=== PATIENT | male | born 1935 | race African-American/Black ===

== ENCOUNTER 2019-10-10 21:01 | Inpatient (IN) | payer MEDICARE ==
--- NOTE | 2019-10-10 21:49 | Emergency Department Report ---
HPI - General Chief Complaint: Medical Clearance Time Seen by Provider: 10/10/19 21:28 - HPI HPI: 84-year-old male presents to the emergency department via EMS from home with complaint of some generalized weakness, nausea and vomiting, decreased oral intake, subjective fever. The patient has never been here previously. Patient lives with his and given his current clinical status she appears unable to care for him. He has a past medical history of hypertension. He presents in atrial fibrillation with RVR. ED Past Medical Hx - Past Medical History Previous Medical History?: Yes Hx Hypertension: Yes Additional medical history: afib - Social History Smoking Status: Unknown if ever smoked - Medications Home Medications: Home Medications Medication Instructions Recorded Confirmed Last Taken Type Metoprolol 10/10/19 Unknown History ED Review of Systems ROS: Stated complaint: FAILURE TO THRIVE Other details as noted in HPI Comment: Unobtainable due to pts medical conditions Physical Exam - Physical Exam Vital Signs: Vital Signs 10/10/19 10/10/19 21:02 21:31 Temperature 97.6 F Pulse Rate 140 H Respiratory 23 Rate Physical Exam: GENERAL: The patient is well-developed well-nourished. HENT: Normocephalic. Atraumatic. Patient has moist mucous membranes. EYES: Extraocular motions are intact. Pupils equal reactive to light bilateral ly. NECK: Supple. Trachea is midline. CHEST/LUNGS: Clear to auscultation. There is no respiratory distress noted. HEART/CARDIOVASCULAR: Regular. There is no tachycardia. There is no murmur. ABDOMEN: Abdomen is soft, nontender. Patient has normal bowel sounds. There is no abdominal distention. SKIN: Skin is warm and dry. NEURO: The patient is awake but appears confused. He is slightly agitated and not cooperative. MUSCULOSKELETAL: There is no tenderness or deformity. There is no evidence of acute injury. ED Course Vital Signs 10/10/19 10/10/19 21:02 21:31 Temperature 97.6 F Pulse Rate 140 H Respiratory 23 Rate ED Medical Decision Making - Lab Data Result diagrams: 10/10/19 21:40 10/10/19 21:40 - EKG Data -: EKG Interpreted by Me - EKG Data Interpretation: other (Atrial fibrillation with a rate of 132 bpm, left axis deviation, PVCs, LVH) - Radiology Data Radiology results: report reviewed, image reviewed interpreted by me: Chest x-ray does not show any acute process. There are no pleural effusions, obvious pneumonia and there is no pneumothorax. CT head/brain wo con INDICATION: Altered Mental Status. TECHNIQUE: All CT scans at this location are performed using the following dose modulation technique: Automated exposure control. CONTRAST: None. COMPARISON: None available. F INDINGS: The ventricular system is appropriate in size and configuration without midline shift. Negative for mass, hemorrhage or acute stroke. Prominent white matter change is greater on the left extending into the temporal lobe. 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 Imaged portions the paranasal sinuses are clear. IMPRESSION: 1. Chronic changes of atrophy and small vessel ischemia. 2. More focal changes the white matter of the left frontal region are age indeterminate. - Medical Decision Making This patient was brought in for an evaluation for generalized weakness, decreased oral intake, subjective fever and nausea with vomiting. However it appears that there must be of some level of altered mental status as part of the reason he was sent in is because his is no longer able to care for him in his current clinical state. When he got here the patient is slightly agitated and/or not cooperative but is awake. A CT scan of the head without contrast was completed that does not show any acute bleed or any large territorial infarct. The patient presented with a heart rate going up into the 130s that appeared ir regular. EKG confirms atrial fibrillation with RVR. As far as we know the patient's only history was hypertension so this would be new onset. The patient was given a dose of Cardizem for rate control and a dose of Ativan for his agitation. He did not convert back to a sinus rhythm but he did become rate controlled. Chest x-ray does not show any pneumonia, pleural effusion, pneumothorax, or any other acute process. Patient's labs also show some mild renal insufficiency that may be secondary to dehydration. However he has not received much IV fluid resuscitation as he does present with extremely elevated blood pressure. He was initially given that Cardizem, and then was given hydralazine and labetalol and it has come down to a more reasonable level. Patient was started on heparin for the new onset atrial fibrillation. He will be admitted to the hospital for further evaluation and treatment and was accepted for admission by the hospitalist, Dr. Grullon. Critical Care Time: Yes Critical care time in (mins) excluding proc time.: 40 Critical care attestation.: If time is entered above; I have spent that time in minutes in the direct care of this critically ill patient, excluding procedure time. Due to the immediate potential for life-threatening deterioration due to underlying cardiac, renal and metabolic conditions, I spent 40 minutes of critical care time with the patient. Critical Care Time: 40 minutes ED Disposition Clinical Impression: Atrial fibrillation with RVR, PRIMO (acute kidney injury), Hypertensive urgency Altered mental status Qualifiers: Altered mental status type: unspecified Qualified Code(s): R41.82 - Altered mental status, unspecified Disposition: DC-09 OP ADMIT IP TO THIS HOSP Is pt being admited?: Yes Condition: Serious Time of Disposition: 02:01
[2019-10-10] MEDS ORDERED: dilTIAZem 25 MG/5 ML INJ IV ONE (22:15)
[2019-10-10] MEDS ORDERED: SODIUM CHLORIDE 0.9% 1000 ML 1,000 ML IV ONE (22:16)
[2019-10-10 22:20] LABS: Basophils # (Auto) 0.1 K/mm3 (0.0-0.1); Basophils % (Auto) 0.3 % (0.0-1.8); Eosinophils # (Auto) 0.1 K/mm3 (0.0-0.4); Eosinophils % (Auto) 0.3 % (0.0-4.3); Hematocrit 47.7 % (35.5-45.6); Hemoglobin 15.4 gm/dl (11.8-15.2); Lymphocytes % (Auto) 5.3 % (13.4-35.0); Mean Corpuscular HGB Conc 32 % (32-34); Mean Corpuscular Volume 101 fl (84-94); Monocytes # (Auto) 1.3 K/mm3 (0.0-0.8); Monocytes % (Auto) 7.2 % (0.0-7.3); Platelet Count 132 K/mm3 (140-440); Red Blood Count 4.73 M/mm3 (3.65-5.03); Red Cell Distribution Width 14.3 % (13.2-15.2)
[2019-10-10 22:30] LABS: INR 1.14 (0.87-1.13)
[2019-10-10 22:31] LABS: Partial Thromboplastin Time 33.2 Sec. (24.2-36.6)
[2019-10-10 22:45] LABS: Albumin 4.1 g/dL (3.9-5); Calcium 9.6 mg/dL (8.4-10.2)
[2019-10-10] MEDS ORDERED: LORazepam 2 MG/ML VIAL IV ONE (22:50)
[2019-10-10 23:40] LABS: Bacteria,Urine 1+ /HPF (Negative); Bilirubin,Urine NEG (Negative); Blood,Urine SM (Negative); Color,Urine Yellow (Yellow); Hyaline Casts,Urine 6 /LPF; Mucus,Urine FEW /HPF; Urobilinogen,Urine < 2.0 mg/dL (<2.0)
[2019-10-10] MEDS ORDERED: hydrALAZINE 20 MG/1 ML INJ IV ONE (23:40)
[2019-10-10 23:41] LABS: Protein,Urine 300 mg/dL mg/dL (Negative)
--- NOTE | 2019-10-10 23:54 | XRay Report ---
CHEST 1 VIEW INDICATION: Altered mental status. COMPARISON: None. FINDINGS: Support devices: None. Heart: Moderate cardiomegaly. Lungs/Pleura: No acute air space or interstitial disease. Additional findings: None. IMPRESSION: Moderate cardiomegaly. Signer Name: Servando De Jesus MD Signed: 10/10/2019 11:49 PM Workstation Name: [id number]
[2019-10-11] MEDS ORDERED: HEPARIN 10,000 UNITS/10 ML VIAL IV ONE (01:04)
--- NOTE | 2019-10-11 01:04 | Cat Scan Report ---
CT head/brain wo con INDICATION: Altered Mental Status. TECHNIQUE: All CT scans at this location are performed using the following dose modulation technique: Automated exposure control. CONTRAST: None. COMPARISON: None available. FINDINGS: The ventricular system is appropriate in size and configuration without midline shift. Nega tive for mass, hemorrhage or acute stroke. Prominent white matter change is greater on the left exten ding into the temporal lobe. 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 Imaged portions the paranasal sinuses are clear. IMPRESSION: 1. Chronic changes of atrophy and small vessel ischemia. 2. More focal changes the white matter of the left frontal region are age indeterminate. Signer Name: Servando De Jesus MD Signed: 10/11/2019 12:59 AM Workstation Name: [id number]
[2019-10-11 01:58] LABS: INR 1.18 (0.87-1.13)
[2019-10-11 01:59] LABS: Partial Thromboplastin Time 32.9 Sec. (24.2-36.6)
[2019-10-11] MEDS ORDERED: HEPARIN/ 0.45% NACL DRIP 25,000 UNIT/500 ML BAG IV SCH (02:00)
[2019-10-11] MEDS ORDERED: ACETAMINOPHEN 325 MG TAB PO PRN (02:03)
[2019-10-11] MEDS ORDERED: ONDANSETRON 4 MG/2 ML INJ IV PRN (02:03)
--- NOTE | 2019-10-11 02:08 | History and Physical Report ---
History of Present Illness History of present illness: History was provided via the chart. This is a 84-year-old man with a history of hypertension, A. fib was sent to the emergency room for evaluation. He has been having nausea vomiting, decreased oral intake and reports of fever. The patient has been afebrile here. The has been unable to care for the patient. In the emergency room he was found to be in A. fib with RVR, converted with Cardizem. His blood pressure was elevated but has been responding to antihypertensives. Patient will be admitted for A. fib with RVR, SIRS, failure to thrive. Patient was given IV Ativan in the ER, he is now sedated, history and review of system is unobtainable PAST MEDICAL HISTORY: hypertension, A. fib PAST SURGICAL HISTORY: Unknown SOCIAL HISTORY: Unknown FAMILY HISTORY: Unknown Medications and Allergies Allergies Allergy/AdvReac Type Severity Reaction Status Date / Time No Known Allergies Allergy Unverified 10/10/19 21:31 Home Medications Medication Instructions Recorded Confirmed Last Taken Type Metoprolol 10/10/19 Unknown History Active Meds: Active Medications Acetaminophen (Tylenol) 650 mg PO Q4H PRN PRN Reason: Pain MILD(1-3)/Fever >100.5/ANNE Sodium Chloride (Nacl 0.9% 1000 Ml) 1,000 mls @ 125 mls/hr IV ONCE ONE Stop: 10/11/19 06:15 Last Admin: 10/10/19 22:43 Dose: 125 mls/hr Documented by: Ondansetron HCl (Zofran) 4 mg IV Q8H PRN PRN Reason: Nausea And Vomiting Sodium Chloride (Sodium Chloride Flush Syringe 10 Ml) 10 ml IV BID NETO Sodium Chloride (Sodium Chloride Flush Syringe 10 Ml) 10 ml IV PRN PRN PRN Reason: LINE FLUSH Exam - Physical Exam Narrative exam: Gen. appearance: Patient lying in bed, no apparent distress HEENT: Normocephalic, atraumatic, pupils equally round and reactive to light, extraocular movement intact, and no sclericterus,. No JVD or thyromegaly or nodule,neck supple, no carotid bruit ,mucous membranes moist, no exudate or erythema Heart: S1, S2, regular rate and rhythm Lungs: Clear anteriorly bilaterally, breathing comfortable Abdomen: Positive bowel sounds, soft, ? Tenderness, nondistended, no organomegaly Extremity: no edema, cyanosis, clubbing Skin: No rash, nodules, warm, dry Neuro: Sedated - Constitutional Vitals: Temp Pulse Resp BP Pulse Ox 97.6 F 108 H 32 H 197/98 99 10/10/19 21:02 10/11/19 01:03 10/11/19 00:16 10/11/19 01:03 10/11/19 00:16 Results - Labs CBC & Chem 7: 10/13/19 07:37 10/13/19 07:37 Labs: Abnormal lab results 10/10/19 10/10/19 10/10/19 Range/Units 21:40 21:40 21:40 WBC 18.1 H (4.5-11.0) K/mm3 Hgb 15.4 H (11.8-15.2) gm/dl Hct 47.7 H (35.5-45.6) % MCV 101 H (84-94) fl MCH 33 H (28-32) pg Plt Count 132 L (140-440) K/mm3 Lymph % (Auto) 5.3 L (13.4-35.0) % Lymph # 1.0 L (1.2-5.4) K/mm3 Curry # 1.3 H (0.0-0.8) K/mm3 Seg Neutrophils % 86.9 H (40.0-70.0) % Seg Neutrophils # 15.7 H (1.8-7.7) K/mm3 PT (12.2-14.9) Sec. INR (0.87-1.13) Carbon Dioxide 17 L (22-30) mmol/L BUN 39 H (9-20) mg/dL Glucose 139 H (75-100) mg/dL Lactic Acid 2.90 H* (0.7-2.0) mmol/L Total Bilirubin 2.50 H (0.1-1.2) mg/dL 10/10/19 10/10/19 10/11/19 Range/Units 21:40 23:04 01:13 WBC (4.5-11.0) K/mm3 Hgb (11.8-15.2) gm/dl Hct (35.5-45.6) % MCV (84-94) fl MCH (28-32) pg Plt Count (140-440) K/mm3 Lymph % (Auto) (13.4-35.0) % Lymph # (1.2-5.4) K/mm3 Curry # (0.0-0.8) K/mm3 Seg Neutrophils % (40.0-70.0) % Seg Neutrophils # (1.8-7.7) K/mm3 PT 15.1 H (12.2-14.9) Sec. INR 1.14 H 1.18 H (0.87-1.13) Carbon Dioxide (22-30) mmol/L BUN (9-20) mg/dL Glucose (75-100) mg/dL Lactic Acid 3.20 H* (0.7-2.0) mmol/L Total Bilirubin (0.1-1.2) mg/dL - Imaging and Cardiology CT Scan - head: report reviewed Assessment and Plan Assessment Sirs Start IV Zosyn, obtain cultures Possible abdominal pain Check CT abdomen pelvis A. fib with RVR, status post conversion DC heparin drip, patient thrombocytopenic Hypertension uncontrolled Start IV hydralazine, Nitropaste, monitor Dehydration Start gentle IV fluids Thrombocytopenia parking manager for possible placement DVT prophylax
[2019-10-11] MEDS: PIPERACILLIN/TAZOBACTAM 3.375 3.375 GM/50 ML BAG IV SCH ×3 (02:43→21:07)
[2019-10-11] MEDS ORDERED: hydrALAZINE 20 MG/1 ML INJ IV ONE (02:50)
[2019-10-11] MEDS ORDERED: hydrALAZINE 20 MG/1 ML INJ IV PRN ×2 (02:50→08:00)
[2019-10-11] MEDS ORDERED: NITROGLYCERIN 2% OINT 1 GM TP ONE (02:51)
[2019-10-11] MEDS: SODIUM CHLORIDE 0.45% 1000 ML 1,000 ML IV SCH (03:14)
--- NOTE | 2019-10-11 04:38 | Cat Scan Report ---
CT abdomen pelvis wo con INDICATION: Abdominal pain. TECHNIQUE: All CT scans at this location are performed using the following dose modulation technique: Automated exposure control. CONTRAST: None. COMPARISON: None available. CT ABDOMEN: Evaluation of the parenchymal organs demonstrates bilateral renal cysts left greater than right. Several small hemorrhagic cyst are present on the left. The remaining parenchymal organs are unremarkable. The gallbladder contains a calcified stone. Negative for abdominal mass or fluid collection. The bowel is not dilated or thickened. The aorta is atherosclerotic and ectatic Mild inflammation is seen at the retroperitoneum adjacent to the distal aorta. This is in the region of the origin of the inferior mesenteric artery. Negative fo r localized fluid collection. CT PELVIS: Negative for pelvic mass, fluid or inflammation. IMPRESSION: 1. Mild nonspecific inflammation adjacent to the distal aorta. This is of uncertain chronicity. Aorti tis, ANGIE occlusion or chronic inflammation or possibilities. 2. Negative for obstruction or fluid collection. 3. Calcified gallstones. Signer Name: Servando De Jesus MD Signed: 10/11/2019 4:34 AM Workstation Name: [id number]
[2019-10-11 05:04] LABS: Hematocrit 46.6 % (35.5-45.6); Hemoglobin 15.5 gm/dl (11.8-15.2); Mean Corpuscular HGB Conc 33 % (32-34); Mean Corpuscular Volume 101 fl (84-94); Platelet Count 81 K/mm3 (140-440); Red Blood Count 4.63 M/mm3 (3.65-5.03); Red Cell Distribution Width 14.2 % (13.2-15.2)
[2019-10-11 05:13] LABS: Calcium 9.6 mg/dL (8.4-10.2)
[2019-10-11 06:04] LABS: Band Neutrophils # (Manual) 0.2 K/mm3; Basophils % (Manual) 0 % (0.0-1.8); Eosinophils % (Manual) 0 % (0.0-4.3); Total Cells Counted 100
[2019-10-11 06:06] LABS: Platelet Estimate Consistent w Auto
[2019-10-11] MEDS ORDERED: amLODIPine 10 MG TAB PO SCH (10:00)
[2019-10-11] MEDS: METOPROLOL TARTRATE 50 MG TAB PO SCH ×2 (10:53→21:07)
--- NOTE | 2019-10-11 11:18 | Consultation ---
History of Present Illness Consult date: 10/11/19 Consult reason: atrial fibrillation History of present illness: This is an 84-year old [place] male whom is non-communicative. Review of records shows the patient was brought in with failure to thrive. On presentation, patient was hypertensive with a systolic blood pressure of 248. Patient was also found with rapid atrial fibrillation. This was treated with intravenous Diltiazem. The duration of atrial fibrillation is uncertain. Initial labs shows a total bilirubin of 2.5, lactic acidosis and low platelets. TSH is normal, 2.55. A cardiac consultation has been requested for management of atrial fibrillation. Medications and Allergies Allergies Allergy/AdvReac Type Severity Reaction Status Date / Time No Known Allergies Allergy Unverified 10/10/19 21:31 Home Medications Medication Instructions Recorded Confirmed Last Taken Type Metoprolol 10/10/19 Unknown History Active Meds: Active Medications Acetaminophen (Tylenol) 650 mg PO Q4H PRN PRN Reason: Pain MILD(1-3)/Fever >100.5/ANNE Amlodipine Besylate (Amlodipine) 10 mg PO QDAY [facility] [place] Last Admin: 10/11/19 10:53 Dose: Not Given Documented by: Hydralazine HCl (Apresoline) 5 mg IV Q6H PRN PRN Reason: Hypertension Hydralazine HCl (Apresoline) 5 mg IV Q30MIN PRN PRN Reason: Hypertension Piperacillin Sod/Tazobactam Sod (Zosyn/Ns 3.375gm/50ml) 3.375 gm in 50 mls @ 100 mls/hr IV Q8H [facility] [place]; Protocol Last Admin: 10/11/19 02:43 Dose: 100 mls/hr Documented by: Sodium Chloride (Nacl 0.45% 1000 Ml) 1,000 mls @ 50 mls/hr IV DIRECT [facility] [place] Last Admin: 10/11/19 03:14 Dose: 50 mls/hr Documented by: Metoprolol Tartrate (Metoprolol) 50 mg PO BID [facility] [place] Last Admin: 10/11/19 10:53 Dose: Not Given Documented by: Ondansetron HCl (Zofran) 4 mg IV Q8H PRN PRN Reason: Nausea And Vomiting Sodium Chloride (Sodium Chloride Flush Syringe 10 Ml) 10 ml IV BID [facility] [place] Last Admin: 10/11/19 10:54 Dose: Not Given Documented by: Sodium Chloride (Sodium Chloride Flush Syringe 10 Ml) 10 ml IV PRN PRN PRN Reason: LINE FLUSH Physical Examination Vital Signs Temp 97.6 F 10/10/19 21:02 General appearance: no acute distress HEENT: Positive: PERRL Cardiac: Positive: irregularly irregular Extremities: Absent: edema Results 10/11/19 04:42 10/11/19 04:42 Cardiac Enzymes 10/10/19 Range/Units 21:40 AST 39 (5-40) units/L Coagulation 10/10/19 10/11/19 Range/Units 21:40 01:13 PT 14.7 15.1 H (12.2-14.9) Sec. INR 1.14 H 1.18 H (0.87-1.13) APTT 33.2 32.9 (24.2-36.6) Sec. CBC 10/10/19 10/11/19 Range/Units 21:40 04:42 WBC 18.1 H 15.9 H (4.5-11.0) K/mm3 RBC 4.73 4.63 (3.65-5.03) M/mm3 Hgb 15.4 H 15.5 H (11.8-15.2) gm/dl Hct 47.7 H 46.6 H (35.5-45.6) % Plt Count 132 L 81 L (140-440) K/mm3 Lymph # 1.0 L (1.2-5.4) K/mm3 [place]ne # 1.3 H (0.0-0.8) K/mm3 Eos # 0.1 (0.0-0.4) K/mm3 Baso # 0.1 (0.0-0.1) K/mm3 Comprehensive Metabolic Panel 10/10/19 10/11/19 Range/Units 21:40 04:42 Sodium 141 141 (137-145) mmol/L Potassium 3.8 4.1 (3.6-5.0) mmol/L Chloride 103.7 102.9 (98-107) mmol/L Carbon Dioxide 17 L 21 L (22-30) mmol/L BUN 39 H 38 H (9-20) mg/dL Creatinine 1.4 1.4 (0.8-1.5) mg/dL Glucose 139 H 183 H (75-100) mg/dL Calcium 9.6 9.6 (8.4-10.2) mg/dL AST 39 (5-40) units/L ALT 22 (7-56) units/L Alkaline Phosphatase 102 (35-129) units/L Total Protein 7.6 (6.3-8.2) g/dL Albumin 4.1 (3.9-5) g/dL Assessment and Plan - Patient Problems (1) Atrial fibrillation with RVR Current Visit: Yes Status: Acute
--- NOTE | 2019-10-11 12:00 | Event Note ---
Date: 10/11/19 Patient seen and examined. 84-year-old chronically debilitated elderly male presented to the hospital with failure to thrive, subjective fever, A. fib with RVR. His heart rate currently controlled, cardiology consulted. Will rule out COVID-19 due to pandemic and history of lack of appetite with subjective fever Continue current management and plan as dictated in the HPI
[2019-10-11] MEDS ORDERED: METOPROLOL TARTRATE 5 MG/5 ML INJ IV PRN (13:59)
[2019-10-11] MEDS: LOSARTAN 50 MG TAB PO SCH (15:01)
[2019-10-11] MEDS: NIFEdipine XL 60 MG TAB PO SCH (15:01)
[2019-10-12] MEDS: SODIUM CHLORIDE 0.45% 1000 ML 1,000 ML IV SCH (02:39)
[2019-10-12] MEDS: PIPERACILLIN/TAZOBACTAM 3.375 3.375 GM/50 ML BAG IV SCH ×3 (03:26→22:01)
[2019-10-12] MEDS: METOPROLOL TARTRATE 50 MG TAB PO SCH ×2 (09:01→21:56)
[2019-10-12] MEDS: LOSARTAN 50 MG TAB PO SCH (09:01)
[2019-10-12] MEDS: NIFEdipine XL 60 MG TAB PO SCH (09:02)
--- NOTE | 2019-10-12 10:52 | Progress Note ---
Assessment and Plan - Patient Problems (1) Atrial fibrillation with RVR Current Visit: Yes Status: Acute Plan to address problem: Atrial fibrillation, undetermined duration persistent We will continue rate controlling agents for atrial fibrillation rate control. Echocardiogram for left ventricular function assessment. Otherwise conservative cardiac management. (2) Hypertensive urgency Current Visit: Yes Status: Acute Plan to address problem: Hypertension, better on procardia and losartan Subjective Date of service: 10/12/19 Interval history: Afib with a well controlled ventricular rate on telemetry. Objective Vital Signs Temp Pulse Pulse Pulse Resp BP BP 10/12/19 09:50 10/12/19 09:01 113 H 135/78 10/12/19 08:13 120 H 22 10/12/19 07:36 98.2 F 113 H 18 135/78 10/12/19 05:49 97.3 F L 100 H 18 130/73 10/12/19 01:16 97.4 F L 10/11/19 23:33 98 H 10/11/19 23:00 98 H 22 10/11/19 21:07 96 H 120/91 10/11/19 21:06 120/91 10/11/19 20:59 10/11/19 18:13 121 H 152/92 10/11/19 17:10 99.0 F 144 H 20 178/110 10/11/19 15:54 135 H 174/96 10/11/19 15:01 112 H 142/78 10/11/19 13:22 135 H 183/96 10/11/19 12:41 97.8 F 124 H 20 212/125 10/11/19 12:21 121 H 10/11/19 11:57 108 H 108 H 16 Pulse Ox 10/12/19 09:50 99 10/12/19 09:01 10/12/19 08:13 99 10/12/19 07:36 98 10/12/19 05:49 96 10/12/19 01:16 10/11/19 23:33 10/11/19 23:00 99 10/11/19 21:07 10/11/19 21:06 10/11/19 20:59 99 10/11/19 18:13 97 10/11/19 17:10 96 10/11/19 15:54 10/11/19 15:01 10/11/19 13:22 10/11/19 12:41 95 10/11/19 12:21 10/11/19 11:57 97 - Physical Examination General: No Apparent Distress Cardiac: Positive: irregularly irregular Extremities: Absent: edema
--- NOTE | 2019-10-12 13:42 | Progress Note ---
Assessment and Plan Assessment and plan: 84-year-old male comes in with the acute episode of debility over 1 to 2 weeks. - Patient Problems (1) Sepsis Current Visit: Yes Status: Acute Plan to address problem: Sepsis present on admission. Exact etiology unclear at this time. Patient has unremarkable chest x-ray. Urine negative. He does have elevated lactic acidosis and leukocytosis however no clear source. Patient is ruled out for COVID-19 infection. In discussions with the son they state patient was cutting grass approximately 3 weeks ago and was alert and able to follow commands. Patient just stopped eating approximately 1 week ago. This is consistent with toxic metabolic encephalopathy as well. Despite not eating well for the last several days. Patient's albumin is 4. On physical exam though appears frail cachectic. Continue broad-spectrum antibiotics with Zosyn. It does appear that patient is improving. Lactic acid has resolved. Leukocytosis is resolving. Patient seems to be a little more alert today. (2) PRIMO (acute kidney injury) Current Visit: Yes Status: Acute Plan to address problem: Secondary to prerenal azotemia patient not eating well not drinking. Continue gentle IV hydration. (3) Altered mental status Current Visit: Yes Status: Acute Qualifiers: Altered mental status type: unspecified Qualified Code(s): R41.82 - Altered mental status, unspecified Plan to address problem: Secondary to toxic metabolic encephalopathy secondary to atrial fibrillation and sepsis. Seem to be improving somewhat. Patient was able to open her mouth today and take tablets. With applesauce. Patient passed swallow eval. (4) Atrial fibrillation with RVR Current Visit: Yes Status: Acute Plan to address problem: Patient heart rate much better controlled with the initiation of metoprolol. Echocardiogram performed ejection fraction 35 to 40%. Spoke with cardiology continue to treat conservatively. (5) Hypertensive urgency Current Visit: Yes Status: Acute Plan to address problem: Has resolved. Blood pressure 130/73. Patient currently taking Procardia metop rolol and as needed labetalol. Systolic blood pressure in 240s now 138. We will continue present medical management with these meds. (6) Dementia Current Visit: Yes Status: Acute Plan to address problem: Patient does not appear to have dementia for a long time. Patient's CT scan consistent with white matter disease could be age-appropriate. Given the history by family member patient was cutting grass 3 3 weeks ago. Able to communicate with family staff and was eating. Only the patient stopped eating approximately 1 week ago. This could be secondary to atrial fibrillation versus sepsis versus multifactorial. We will hold off on the diagnosis of dementia and use minimal cognitive deficit until we are able to assess patient more. May benefit from MRI versus neurology consult. We will see how he does within the next 24 hours with adequate nutrition for the hydration. (7) Debility Current Visit: Yes Status: Acute Plan to address problem: If patient cutting grass 2 weeks ago. Will start early physical therapy. Patient in bed now with knees contracted in a totally flexed position. This could also be cultural as well. Sitting in a squatting position. History Interval history: Patient 84-year-old male chronically ill and debilitated. Appears to have failure to thrive. Found to have atrial fibrillation rapid ventricular rate. Altered mental status and severe systolic hypertension. Patient's Hungarian remains noncommunicative. Treated in ID with IV diltiazem. Blood pressure is now optimally controlled at this time. Patient on losartan metoprolol and Procardia. Stable without taking all the medications. Patient currently refusing to even open mouth. Patient's current function is consistent with advanced dementia. Patient also has contractures of lower extremity consistent with advanced dementia. Hospitalist Physical - Constitutional Vitals: Temp Pulse Resp BP Pulse Ox 98.2 F 101 H 18 145/90 97 10/12/19 11:21 10/12/19 11:21 10/12/19 11:21 10/12/19 11:21 10/12/19 11:21 General appearance: Present: no acute distress, cachectic - EENT Eyes: Present: PERRL, EOM intact ENT: hearing intact, clear oral mucosa, poor dentition - Neck Neck: Present: supple, normal ROM - Respiratory Respiratory: bilateral: diminished - Cardiovascular Rhythm: regularly irregular (Otherwise clear) - Extremities Extremities: no ischemia, pulses intact, pulses symmetrical Extremity abnormal: other (Patient has knees bent in a completely flexed position on both legs.) Peripheral Pulses: within normal limits - Abdominal General gastrointestinal: soft, non-tender, hypoactive bowel sounds, other - Integumentary Integumentary: Present: clear, warm, dry, erythema - Psychiatric Psychiatric: other (Very difficult to tell because of language barrier) - Neurologic Neurologic: no focal deficits, moves all extremities - Allied Health Allied health notes reviewed: ST, case management Results - Labs CBC & Chem 7: 10/11/19 04:42 10/11/19 04:42 Labs: Laboratory Last Values WBC 15.9 K/mm3 (4.5-11.0) H 10/11/19 04:42 RBC 4.63 M/mm3 (3.65-5.03) 10/11/19 04:42 Hgb 15.5 gm/dl (11.8-15.2) H 10/11/19 04:42 Hct 46.6 % (35.5-45.6) H 10/11/19 04:42 MCV 101 fl (84-94) H 10/11/19 04:42 MCH 33 pg (28-32) H 10/11/19 04:42 MCHC 33 % (32-34) 10/11/19 04:42 RDW 14.2 % (13.2-15.2) 10/11/19 04:42 Plt Count 81 K/mm3 (140-440) L 10/11/19 04:42 Lymph % (Auto) 5.3 % (13.4-35.0) L 10/10/19 21:40 [place] % (Auto) 7.2 % (0.0-7.3) 10/10/19 21:40 Eos % (Auto) 0.3 % (0.0-4.3) 10/10/19 21:40 Baso % (Auto) 0.3 % (0.0-1.8) 10/10/19 21:40 Lymph # 1.0 K/mm3 (1.2-5.4) L 10/10/19 21:40 [place] # 1.3 K/mm3 (0.0-0.8) H 10/10/19 21:40 Eos # 0.1 K/mm3 (0.0-0.4) 10/10/19 21:40 Baso # 0.1 K/mm3 (0.0-0.1) 10/10/19 21:40 Add Manual Diff Complete 10/11/19 04:42 Total Counted 100 10/11/19 04:42 Seg Neutrophils % Property Loss Insurance Claim Adjuster 10/11/19 04:42 Seg Neuts % (Manual) 93.0 % (40.0-70.0) H 10/11/19 04:42 Band Neutrophils % 1.0 % 10/11/19 04:42 Lymphocytes % (Manual) 2.0 % (13.4-35.0) L 10/11/19 04:42 Reactive Lymphs % (Man) 0 % 10/11/19 04:42 Monocytes % (Manual) 4.0 % (0.0-7.3) 10/11/19 04:42 Eosinophils % (Manual) 0 % (0.0-4.3) 10/11/19 04:42 Basophils % (Manual) 0 % (0.0-1.8) 10/11/19 04:42 Metamyelocytes % 0 % 10/11/19 04:42 Myelocytes % 0 % 10/11/19 04:42 Promyelocytes % 0 % 10/11/19 04:42 Blast Cells % 0 % 10/11/19 04:42 Nucleated RBC % Not Reportable 10/11/19 04:42 Seg Neutrophils # 15.7 K/mm3 (1.8-7.7) H 10/10/19 21:40 Seg Neutrophils # Man 14.8 K/mm3 (1.8-7.7) H 10/11/19 04:42 Band Neutrophils # 0.2 K/mm3 10/11/19 04:42 Lymphocytes # (Manual) 0.3 K/mm3 (1.2-5.4) L 10/11/19 04:42 Abs React Lymphs (Man) 0.0 K/mm3 10/11/19 04:42 Monocytes # (Manual) 0.6 K/mm3 (0.0-0.8) 10/11/19 04:42 Eosinophils # (Manual) 0.0 K/mm3 (0.0-0.4) 10/11/19 04:42 Basophils # (Manual) 0.0 K/mm3 (0.0-0.1) 10/11/19 04:42 Metamyelocytes # 0.0 K/mm3 10/11/19 04:42 Myelocytes # 0.0 K/mm3 10/11/19 04:42 Promyelocytes # 0.0 K/mm3 10/11/19 04:42 Blast Cells # 0.0 K/mm3 10/11/19 04:42 WBC Morphology Not Reportable 10/11/19 04:42 Hypersegmented Neuts Not Reportable 10/11/19 04:42 Hyposegmented Neuts Not Reportable 10/11/19 04:42 Hypogranular Neuts Not Reportable 10/11/19 04:42 Smudge Cells Not Reportable 10/11/19 04:42 Toxic Granulation Not Reportable 10/11/19 04:42 Toxic Vacuolation Not Reportable 10/11/19 04:42 Dohle Bodies Not Reportable 10/11/19 04:42 Pelger-Huet Anomaly Not Reportable 10/11/19 04:42 Glenys Rods Not Reportable 10/11/19 04:42 Platelet Estimate Consistent w auto 10/11/19 04:42 Clumped Platelets Not Reportable 10/11/19 04:42 Plt Clumps, EDTA Not Reportable 10/11/19 04:42 Large Platelets Not Reportable 10/11/19 04:42 Giant Platelets Not Reportable 10/11/19 04:42 Platelet Satelliting Not Reportable 10/11/19 04:42 Plt Morphology Comment Not Reportable 10/11/19 04:42 RBC Morphology Not Reportable 10/11/19 04:42 Dimorphic RBCs Not Reportable 10/11/19 04:42 Polychromasia Not Reportable 10/11/19 04:42 Hypochromasia Not Reportable 10/11/19 04:42 Poikilocytosis Not Reportable 10/11/19 04:42 Anisocytosis Not Reportable 10/11/19 04:42 Microcytosis Not Reportable 10/11/19 04:42 Macrocytosis Not Reportable 10/11/19 04:42 Spherocytes Not Reportable 10/11/19 04:42 Pappenheimer Bodies Not Reportable 10/11/19 04:42 Sickle Cells Not Reportable 10/11/19 04:42 Target Cells Not Reportable 10/11/19 04:42 Tear Drop Cells Not Reportable 10/11/19 04:42 Ovalocytes Not Reportable 10/11/19 04:42 Helmet Cells Not Reportable 10/11/19 04:42 [place] Bodies Not Reportable 10/11/19 04:42 [place] Rings Not Reportable 10/11/19 04:42 Paula Cells Not Reportable 10/11/19 04:42 Bite Cells Not Reportable 10/11/19 04:42 Crenated Cell Not Reportable 10/11/19 04:42 Elliptocytes Rare 10/11/19 04:42 Acanthocytes (Spur) Not Reportable 10/11/19 04:42 Rouleaux Not Reportable 10/11/19 04:42 Hemoglobin C Crystals Not Reportable 10/11/19 04:42 Schistocytes Not Reportable 10/11/19 04:42 Malaria parasites Not Reportable 10/11/19 04:42 Robin Bodies Not Reportable 10/11/19 04:42 Hem Pathologist Commnt No 10/11/19 04:42 PT 15.1 Sec. (12.2-14.9) H 10/11/19 01:13 INR 1.18 (0.87-1.13) H 10/11/19 01:13 APTT 32.9 Sec. (24.2-36.6) 10/11/19 01:13 Sodium 141 mmol/L (137-145) 10/11/19 04:42 Potassium 4.1 mmol/L (3.6-5.0) 10/11/19 04:42 Chloride 102.9 mmol/L (98-107) 10/11/19 04:42 Carbon Dioxide 21 mmol/L (22-30) L 10/11/19 04:42 Anion Gap 21 mmol/L 10/11/19 04:42 BUN 38 mg/dL (9-20) H 10/11/19 04:42 Creatinine 1.4 mg/dL (0.8-1.5) 10/11/19 04:42 Estimated GFR 48 ml/min 10/11/19 04:42 BUN/Creatinine Ratio 27 % 10/11/19 04:42 Glucose 183 mg/dL (75-100) H 10/11/19 04:42 Lactic Acid 3.20 mmol/L (0.7-2.0) H* 10/10/19 23:04 Calcium 9.6 mg/dL (8.4-10.2) 10/11/19 04:42 Total Bilirubin 2.50 mg/dL (0.1-1.2) H 10/10/19 21:40 AST 39 units/L (5-40) 10/10/19 21:40 ALT 22 units/L (7-56) 10/10/19 21:40 Alkaline Phosphatase 102 units/L (35-129) 10/10/19 21:40 Ammonia 54.0 umol/L (25-60) 10/10/19 21:40 Troponin T 0.024 ng/mL (0.00-0.029) 10/10/19 21:40 Total Protein 7.6 g/dL (6.3-8.2) 10/10/19 21:40 Albumin 4.1 g/dL (3.9-5) 10/10/19 21:40 Albumin/Globulin Ratio 1.2 % 10/10/19 21:40 TSH 2.550 mlU/mL (0.270-4.200) 10/10/19 21:40 Urine Color Yellow (Yellow) 10/10/19 23:18 Urine Turbidity Clear (Clear) 10/10/19 23:18 Urine pH 6.0 (5.0-7.0) 10/10/19 23:18 Ur Specific [place] 1.015 (1.003-1.030) 10/10/19 23:18 Urine Protein 300 mg/dl mg/dL (Negative) 10/10/19 23:18 Urine Glucose (UA) 50 mg/dL (Negative) 10/10/19 23:18 Urine Ketones Neg mg/dL (Negative) 10/10/19 23:18 Urine Blood Sm (Negative) 10/10/19 23:18 Urine Nitrite Neg (Negative) 10/10/19 23:18 Urine Bilirubin Neg (Negative) 10/10/19 23:18 Urine Urobilinogen < 2.0 mg/dL (<2.0) 10/10/19 23:18 Ur Leukocyte Esterase Neg (Negative) 10/10/19 23:18 Urine WBC (Auto) 1.0 /HPF (0.0-6.0) 10/10/19 23:18 Urine RBC (Auto) 9.0 /HPF (0.0-6.0) 10/10/19 23:18 U Epithel Cells (Auto) < 1.0 /HPF (0-13.0) 10/10/19 23:18 Urine Bacteria (Auto) 1+ /HPF (Negative) 10/10/19 23:18 Hyaline Casts 6 /LPF 10/10/19 23:18 Urine Mucus Few /HPF 10/10/19 23:18 Influenza A (Rapid) Negative (Negative) 10/10/19 22:25 Influenza B (Rapid) Negative (Negative) 10/10/19 22:25 Microbiology: Microbiology 10/10/19 21:40 Peripheral/Venous Blood Culture - Preliminary NO GROWTH AFTER 24 HOURS 10/10/19 21:40 Peripheral/Venous Blood Culture - Preliminary NO GROWTH AFTER 24 HOURS Miranda/IV: Voiding Method Condom Catheter IV Catheter Type [Right INT / Saline Lock Forearm] Active Medications - Current Medications Current Medications: Generic Name Dose Route Start Last Admin Trade Name Freq PRN Reason Stop Dose Admin Acetaminophen 650 mg 10/11/19 02:03 Tylenol PO Q4H PRN Pain MILD(1-3)/Fever >100.5/ANNE Hydralazine HCl 5 mg 10/11/19 08:00 Apresoline IV Q30MIN PRN Hypertension Piperacillin Sod/Tazobactam Sod 3.375 gm in 50 mls @ 100 mls/hr 10/11/19 03:00 10/12/19 13:26 Zosyn/Ns 3.375gm/50ml IV 100 mls/hr Q8H NETO Administration Protocol Sodium Chloride 1,000 mls @ 50 mls/hr 10/11/19 03:00 10/12/19 02:39 Nacl 0.45% 1000 Ml IV 50 mls/hr DIRECT NETO Administration Labetalol HCl 10 mg 10/11/19 13:00 10/11/19 13:22 Labetalol IV 10 mg Q4H PRN Administration Hypertension Losartan Potassium 50 mg 10/11/19 14:00 10/12/19 09:01 Cozaar PO 50 mg QDAY NETO Administration Metoprolol Tartrate 50 mg 10/11/19 10:00 10/12/19 09:01 Metoprolol PO 50 mg BID NETO Administration Metoprolol Tartrate 2.5 mg 10/11/19 13:59 10/11/19 15:54 Metoprolol IV 2.5 mg Q6HR PRN Administration HR>130 Nifedipine 60 mg 10/11/19 14:00 10/12/19 09:02 Procardia Xl PO 60 mg QDAY NETO Administration Ondansetron HCl 4 mg 10/11/19 02:03 Zofran IV Q8H PRN Nausea And Vomiting Sodium Chloride 10 ml 10/11/19 10:00 10/12/19 09:17 Sodium Chloride Flush Syringe 10 Ml IV 10 ml BID NETO Administration Sodium Chloride 10 ml 10/11/19 02:03 Sodium Chloride Flush Syringe 10 Ml IV PRN PRN LINE FLUSH Nutrition/Malnutrition Assess - Dietary Evaluation Nutrition/Malnutrition Findings: Nutrition Notes Start: 10/11/19 13:24 Freq: Status: Active Protocol: Document 10/11/19 13:24 LM (Rec: 10/11/19 13:41 LM [id number]) Nutrition Notes Need for Assessment generated from: MD Order,negotiator sales,MST,Low BMI Initial or Follow up Assessment Current Diagnosis Acute Kidney Injury, Hypertension Other Pertinent Diagnosis dehydration, Afib, AMS Current Diet cardiac Labs/Tests BG 183 Pertinent Medications NaCl at 50ml/hr Height 5 ft 6 in Weight 46.1 kg [place] Body Weight (kg) 64.54 BMI 16.4 Weight Status Underweight Subjective/Other Information MD consult for poor oral intake and ONS. RN screen for MST and skin risk. Low BMI screen. Simone score is 13 with no wounds documented. Pt' s language is Hungarian but pt is nonverbal. Per chart pt has been having decreased intakes/ appetite with N/V. 0% of breakfast documented in chart. Burn Absent Trauma Absent GI Symptoms Nausea,Vomiting Current % PO Negligible Minimum of two criteria No Energy Intake (non-severe) <75% Estimated Energy Requirement >7 days #1 Nutrition Diagnosis Inadequate oral intake Etiology AMS, advanced age As Evidenced by Signs and Symptoms pt with poor intakes, eating 0 % of breakfast Is patient on ventilator? No Is Patient Ambulatory and/or Out of Bed No [facility] 1325.916 Kcal/Kg value to use for calculation 39 Approximate Energy Requirements Using 1798 kcal/Kg Calculation Used for Recommendations Kcal/kg Additional Notes Protein: 37-55g (0.8-1.2g/kg) FluidL 1 ml/kcal or per MD Nutrition Intervention Change Diet Order: Continue Cardiac Add Supplement/Snack (indicate name/kcal Ensure Enlive TID /protein ) Provides kCal: 1,050 Provides Protein (gm) 60 Goal #1 Meet at least 80% of energy and protein needs Anticipated Discharge Needs: cardiac with ONS Follow-Up By: 10/13/19 Additional Comments F/U for PO/ONS intakes, tolerance
[2019-10-13] MEDS: SODIUM CHLORIDE 0.45% 1000 ML 1,000 ML IV SCH (02:09)
[2019-10-13] MEDS: PIPERACILLIN/TAZOBACTAM 3.375 3.375 GM/50 ML BAG IV SCH (02:09)
[2019-10-13 07:57] LABS: Basophils % (Auto) 0.3 % (0.0-1.8); Hematocrit 45.3 % (35.5-45.6); Hemoglobin 15.2 gm/dl (11.8-15.2); Lymphocytes # (Auto) 0.9 K/mm3 (1.2-5.4); Lymphocytes % (Auto) 6.6 % (13.4-35.0); Mean Corpuscular HGB Conc 34 % (32-34); Mean Corpuscular Volume 100 fl (84-94); Monocytes # (Auto) 1.2 K/mm3 (0.0-0.8); Monocytes % (Auto) 8.2 % (0.0-7.3); Red Blood Count 4.53 M/mm3 (3.65-5.03); Red Cell Distribution Width 14.3 % (13.2-15.2)
[2019-10-13 08:20] LABS: Platelet Count 86 K/mm3 (140-440)
[2019-10-13] MEDS: METOPROLOL TARTRATE 50 MG TAB PO SCH ×2 (09:47→22:30)
[2019-10-13] MEDS: LOSARTAN 50 MG TAB PO SCH (09:59)
--- NOTE | 2019-10-13 11:05 | Progress Note ---
Assessment and Plan Atrial fibrillation, undetermined duration persistent Hypertension, better on procardia and losartan Dilated Cardiomyopathy, uncertain duration an echo this admission shows atrial enlargement, decreased left ventricular systolic function, ejection fraction 35-40%. Continue rate controlling agents for atrial fibrillation rate control. Medical therapy for dilated cardiomyopathy as tolerated. Otherwise, conservative cardiac management. Subjective Date of service: 10/13/19 Interval history: Patient is resting in bed comfortably. Afib with a well controlled ventricular rate on telemetry. Objective Vital Signs Temp Pulse Pulse Resp BP Pulse Ox 10/13/19 09:59 88 119/74 10/13/19 09:47 98 H 119/74 10/13/19 09:18 98.2 F 63 18 119/74 96 10/13/19 08:00 92 H 18 96 10/13/19 04:20 97.4 F L 79 18 122/63 99 10/13/19 00:21 97.4 F L 81 18 101/54 95 10/12/19 22:00 89 10/12/19 21:56 110/53 10/12/19 20:49 97.7 F 86 18 110/53 96 10/12/19 20:00 81 18 95 10/12/19 15:12 97.5 F L 102 H 18 128/80 97 10/12/19 11:21 98.2 F 101 H 18 145/90 97 - Physical Examination General: No Apparent Distress HEENT: Positive: PERRL Cardiac: Positive: irregularly irregular Extremities: Absent: edema - Labs and Meds CBC 10/13/19 Range/Units 07:37 WBC 14.4 H (4.5-11.0) K/mm3 RBC 4.53 (3.65-5.03) M/mm3 Hgb 15.2 (11.8-15.2) gm/dl Hct 45.3 (35.5-45.6) % Plt Count 86 L (140-440) K/mm3 Lymph # 0.9 L (1.2-5.4) K/mm3 [place] # 1.2 H (0.0-0.8) K/mm3 Eos # 0.0 (0.0-0.4) K/mm3 Baso # 0.0 (0.0-0.1) K/mm3 Comprehensive Metabolic Panel 10/13/19 Range/Units 07:37 Sodium 145 (137-145) mmol/L Potassium 4.1 (3.6-5.0) mmol/L Chloride 108.0 H (98-107) mmol/L Carbon Dioxide 14 L D (22-30) mmol/L BUN 100 H (9-20) mg/dL Creatinine 3.7 H D (0.8-1.5) mg/dL Glucose 148 H (75-100) mg/dL Calcium 9.0 (8.4-10.2) mg/dL
[2019-10-13] MEDS: PIPERACIL-TAZO 2.25 GM/50 ML 2.25 GM/50 ML BAG IV SCH ×2 (13:04→21:24)
--- NOTE | 2019-10-13 13:50 | Progress Note ---
Assessment and Plan Assessment and plan: 84-year-old male comes in with the acute episode of debility over 1 to 2 weeks. - Patient Problems (1) Sepsis Current Visit: Yes Status: Acute Plan to address problem: Sepsis with with prerenal azotemia. Unable to obtain any clear source. No growth so far in 48 hours. Patient however continues to improve cognitively. Also patient's fever curve is come down and is now afebrile. Patient is leukocytosis is also improving from 18-14 over the past 48 hours. Patient is also eating better. These are signs of improvement therefore will continue Zosyn however may change to renal doses. (2) PRIMO (acute kidney injury) Current Visit: Yes Status: Acute Plan to address problem: Acute kidney injury significant worsening over p.m. most likely secondary to worsening prerenal azotemia. Will begin IV hydration. (3) Altered mental status Current Visit: Yes Status: Acute Qualifiers: Altered mental status type: unspecified Qualified Code(s): R41.82 - Altered mental status, unspecified Plan to address problem: Secondary to toxic metabolic encephalopathy secondary to atrial fibrillation and sepsis. Seem to be improving somewhat. Patient was able to open her mouth today and take tablets. With applesauce. Patient passed swallow eval. after further history with son. Patient was more interactive talking as he is doing more today. Cutting grass several days ago. Unlikely dementia. Could still possibly have minimal cognitive defect. I still think most likely metabolic encephalopathy secondary to infection and atrial fibrillation. (4) Atrial fibrillation with RVR Current Visit: Yes Status: Acute Plan to address problem: Rate much better controlled today. Agree with high risk of anticoagulation secondary to fragility of the patient. If remains irregular may consider aspirin alone and aggressive rate control. (5) Hypertensive urgency Current Visit: Yes Status: Acute Plan to address problem: Patient blood pressure is now on the low side. Will discontinue losartan. Especially since patient's renal function has gotten worse. At this point will continue metoprolol. This will help for rate control but blood pressure is now stable and does not need as many medications. (6) Dementia Current Visit: Yes Status: Acute Plan to address problem: At present after careful history with family. Very likely dementia most likely acute metabolic encephalopathy. Patient much more alert now. (7) Debility Current Visit: Yes Status: Acute Plan to address problem: If patient cutting grass 2 weeks ago. Will start early physical therapy. Patient in bed now with knees contracted in a totally flexed position. This could also be cultural as well. Sitting in a squatting position. We will start physical therapy early. Patient was up walking around cutting grass several weeks ago. History Interval history: Cognitively patient improved today. Patient did eat this morning although had to be fed. No new concerns overnight. Patient found to be normotensive to hypotensive this evening. Son spoke on the phone states patient's answer questions appropriately at this time. Hospitalist Physical - Constitutional Vitals: Temp Pulse Resp BP Pulse Ox 98.2 F 88 18 119/74 96 10/13/19 09:18 10/13/19 09:59 10/13/19 09:18 10/13/19 09:59 10/13/19 09:18 General appearance: Present: no acute distress - EENT Eyes: Present: PERRL, EOM intact ENT: clear oral mucosa, dentition normal, other (Very hard of hearing) - Neck Neck: Present: supple, normal ROM - Respiratory Respiratory effort: normal Respiratory: bilateral: CTA - Cardiovascular Rhythm: regular - Extremities Extremities: no ischemia, pulses intact, pulses symmetrical Peripheral Pulses: within normal limits - Abdominal General gastrointestinal: soft, non-tender, hypoactive bowel sounds, no hepatomegaly, no splenomegaly - Integumentary Integumentary: Present: clear, warm, dry - Psychiatric Psychiatric: cooperative, other (Agitated at times) - Neurologic Neurologic: CNII-XII intact, focal deficits, moves all extremities Results - Labs CBC & Chem 7: 10/13/19 07:37 10/13/19 07:37 Labs: Laboratory Last Values WBC 14.4 K/mm3 (4.5-11.0) H 10/13/19 07:37 RBC 4.53 M/mm3 (3.65-5.03) 10/13/19 07:37 Hgb 15.2 gm/dl (11.8-15.2) 10/13/19 07:37 Hct 45.3 % (35.5-45.6) 10/13/19 07:37 MCV 100 fl (84-94) H 10/13/19 07:37 MCH 34 pg (28-32) H 10/13/19 07:37 MCHC 34 % (32-34) 10/13/19 07:37 RDW 14.3 % (13.2-15.2) 10/13/19 07:37 Plt Count 86 K/mm3 (140-440) L 10/13/19 07:37 Lymph % (Auto) 6.6 % (13.4-35.0) L 10/13/19 07:37 [place] % (Auto) 8.2 % (0.0-7.3) H 10/13/19 07:37 Eos % (Auto) 0.0 % (0.0-4.3) 10/13/19 07:37 Baso % (Auto) 0.3 % (0.0-1.8) 10/13/19 07:37 Lymph # 0.9 K/mm3 (1.2-5.4) L 10/13/19 07:37 [place] # 1.2 K/mm3 (0.0-0.8) H 10/13/19 07:37 Eos # 0.0 K/mm3 (0.0-0.4) 10/13/19 07:37 Baso # 0.0 K/mm3 (0.0-0.1) 10/13/19 07:37 Add Manual Diff Complete 10/11/19 04:42 Total Counted 100 10/11/19 04:42 Seg Neutrophils % 84.9 % (40.0-70.0) H 10/13/19 07:37 Seg Neuts % (Manual) 93.0 % (40.0-70.0) H 10/11/19 04:42 Band Neutrophils % 1.0 % 10/11/19 04:42 Lymphocytes % (Manual) 2.0 % (13.4-35.0) L 10/11/19 04:42 Reactive Lymphs % (Man) 0 % 10/11/19 04:42 Monocytes % (Manual) 4.0 % (0.0-7.3) 10/11/19 04:42 Eosinophils % (Manual) 0 % (0.0-4.3) 10/11/19 04:42 Basophils % (Manual) 0 % (0.0-1.8) 10/11/19 04:42 Metamyelocytes % 0 % 10/11/19 04:42 Myelocytes % 0 % 10/11/19 04:42 Promyelocytes % 0 % 10/11/19 04:42 Blast Cells % 0 % 10/11/19 04:42 Nucleated RBC % Not Reportable 10/11/19 04:42 Seg Neutrophils # 12.2 K/mm3 (1.8-7.7) H 10/13/19 07:37 Seg Neutrophils # Man 14.8 K/mm3 (1.8-7.7) H 10/11/19 04:42 Band Neutrophils # 0.2 K/mm3 10/11/19 04:42 Lymphocytes # (Manual) 0.3 K/mm3 (1.2-5.4) L 10/11/19 04:42 Abs React Lymphs (Man) 0.0 K/mm3 10/11/19 04:42 Monocytes # (Manual) 0.6 K/mm3 (0.0-0.8) 10/11/19 04:42 Eosinophils # (Manual) 0.0 K/mm3 (0.0-0.4) 10/11/19 04:42 Basophils # (Manual) 0.0 K/mm3 (0.0-0.1) 10/11/19 04:42 Metamyelocytes # 0.0 K/mm3 10/11/19 04:42 Myelocytes # 0.0 K/mm3 10/11/19 04:42 Promyelocytes # 0.0 K/mm3 10/11/19 04:42 Blast Cells # 0.0 K/mm3 10/11/19 04:42 WBC Morphology Not Reportable 10/11/19 04:42 Hypersegmented Neuts Not Reportable 10/11/19 04:42 Hyposegmented Neuts Not Reportable 10/11/19 04:42 Hypogranular Neuts Not Reportable 10/11/19 04:42 Smudge Cells Not Reportable 10/11/19 04:42 Toxic Granulation Not Reportable 10/11/19 04:42 Toxic Vacuolation Not Reportable 10/11/19 04:42 Dohle Bodies Not Reportable 10/11/19 04:42 Pelger-Huet Anomaly Not Reportable 10/11/19 04:42 Glenys Rods Not Reportable 10/11/19 04:42 Platelet Estimate Consistent w auto 10/11/19 04:42 Clumped Platelets Not Reportable 10/11/19 04:42 Plt Clumps, EDTA Not Reportable 10/11/19 04:42 Large Platelets Not Reportable 10/11/19 04:42 Giant Platelets Not Reportable 10/11/19 04:42 Platelet Satelliting Not Reportable 10/11/19 04:42 Plt Morphology Comment Not Reportable 10/11/19 04:42 RBC Morphology Not Reportable 10/11/19 04:42 Dimorphic RBCs Not Reportable 10/11/19 04:42 Polychromasia Not Reportable 10/11/19 04:42 Hypochromasia Not Reportable 10/11/19 04:42 Poikilocytosis Not Reportable 10/11/19 04:42 Anisocytosis Not Reportable 10/11/19 04:42 Microcytosis Not Reportable 10/11/19 04:42 Macrocytosis Not Reportable 10/11/19 04:42 Spherocytes Not Reportable 10/11/19 04:42 Pappenheimer Bodies Not Reportable 10/11/19 04:42 Sickle Cells Not Reportable 10/11/19 04:42 Target Cells Not Reportable 10/11/19 04:42 Tear Drop Cells Not Reportable 10/11/19 04:42 Ovalocytes Not Reportable 10/11/19 04:42 Helmet Cells Not Reportable 10/11/19 04:42 [place] Bodies Not Reportable 10/11/19 04:42 [place] Rings Not Reportable 10/11/19 04:42 [place] Cells Not Reportable 10/11/19 04:42 Bite Cells Not Reportable 10/11/19 04:42 Crenated Cell Not Reportable 10/11/19 04:42 Elliptocytes Rare 10/11/19 04:42 Acanthocytes (Spur) Not Reportable 10/11/19 04:42 Rouleaux Not Reportable 10/11/19 04:42 Hemoglobin C Crystals Not Reportable 10/11/19 04:42 Schistocytes Not Reportable 10/11/19 04:42 Malaria parasites Not Reportable 10/11/19 04:42 Robin Bodies Not Reportable 10/11/19 04:42 Hem Pathologist Commnt No 10/11/19 04:42 PT 15.1 Sec. (12.2-14.9) H 10/11/19 01:13 INR 1.18 (0.87-1.13) H 10/11/19 01:13 APTT 32.9 Sec. (24.2-36.6) 10/11/19 01:13 Sodium 145 mmol/L (137-145) 10/13/19 07:37 Potassium 4.1 mmol/L (3.6-5.0) 10/13/19 07:37 Chloride 108.0 mmol/L (98-107) H 10/13/19 07:37 Carbon Dioxide 14 mmol/L (22-30) L D 10/13/19 07:37 Anion Gap 27 mmol/L 10/13/19 07:37 BUN 100 mg/dL (9-20) H 10/13/19 07:37 Creatinine 3.7 mg/dL (0.8-1.5) H D 10/13/19 07:37 Estimated GFR 16 ml/min 10/13/19 07:37 BUN/Creatinine Ratio 27 % 10/13/19 07:37 Glucose 148 mg/dL (75-100) H 10/13/19 07:37 POC Glucose 140 (70-105) H 10/12/19 14:04 Lactic Acid 3.20 mmol/L (0.7-2.0) H* 10/10/19 23:04 Calcium 9.0 mg/dL (8.4-10.2) 10/13/19 07:37 Total Bilirubin 2.50 mg/dL (0.1-1.2) H 10/10/19 21:40 AST 39 units/L (5-40) 10/10/19 21:40 ALT 22 units/L (7-56) 10/10/19 21:40 Alkaline Phosphatase 102 units/L (35-129) 10/10/19 21:40 Ammonia 54.0 umol/L (25-60) 10/10/19 21:40 Troponin T 0.024 ng/mL (0.00-0.029) 10/10/19 21:40 Total Protein 7.6 g/dL (6.3-8.2) 10/10/19 21:40 Albumin 4.1 g/dL (3.9-5) 10/10/19 21:40 Albumin/Globulin Ratio 1.2 % 10/10/19 21:40 TSH 2.550 mlU/mL (0.270-4.200) 10/10/19 21:40 Urine Color Yellow (Yellow) 10/10/19 23:18 Urine Turbidity Clear (Clear) 10/10/19 23:18 Urine pH 6.0 (5.0-7.0) 10/10/19 23:18 Ur Specific [place] 1.015 (1.003-1.030) 10/10/19 23:18 Urine Protein 300 mg/dl mg/dL (Negative) 10/10/19 23:18 Urine Glucose (UA) 50 mg/dL (Negative) 10/10/19 23:18 Urine Ketones Neg mg/dL (Negative) 10/10/19 23:18 Urine Blood Sm (Negative) 10/10/19 23:18 Urine Nitrite Neg (Negative) 10/10/19 23:18 Urine Bilirubin Neg (Negative) 10/10/19 23:18 Urine Urobilinogen < 2.0 mg/dL (<2.0) 10/10/19 23:18 Ur Leukocyte Esterase Neg (Negative) 10/10/19 23:18 Urine WBC (Auto) 1.0 /HPF (0.0-6.0) 10/10/19 23:18 Urine RBC (Auto) 9.0 /HPF (0.0-6.0) 10/10/19 23:18 U Epithel Cells (Auto) < 1.0 /HPF (0-13.0) 10/10/19 23:18 Urine Bacteria (Auto) 1+ /HPF (Negative) 10/10/19 23:18 Hyaline Casts 6 /LPF 10/10/19 23:18 Urine Mucus Few /HPF 10/10/19 23:18 Coronavirus (PCR) Negative (Negative) 10/11/19 11:14 Influenza A (Rapid) Negative (Negative) 10/10/19 22:25 Influenza B (Rapid) Negative (Negative) 10/10/19 22:25 Microbiology: Microbiology 10/10/19 21:40 Peripheral/Venous Blood Culture - Preliminary NO GROWTH AFTER 48 HOURS 10/10/19 21:40 Peripheral/Venous Blood Culture - Preliminary NO GROWTH AFTER 48 HOURS - Diagnostic Impressions Diagnostic Impressions: Echocardiogram 10/12/19 09:05 Transthoracic Echocardiogram Indication: Afib, HTN BP: 135/78 HR: 115 Conclusions *Global left ventricular systolic function is moderately decreased. *The estimated ejection fraction is 35-40%, but optimal assessment is limited by irregular heart rate. *Mild concentric left ventricular hypertrophy is observed. *The left and right atria are both severely dilated. *There is mild aortic regurgitation. *There is trace-mild mitral regurgitation. *There is moderate tricuspid regurgitation. *There is evidence of mild pulmonary hypertension. *The right ventricular systolic pressure is calculated at 28 mmHg. Findings Left Ventricle: The left ventricular chamber size is mildly dilated. Mild concentric left ventricular hypertrophy is observed. Global left ventricular systolic function is moderately decreased. The estimated ejection fraction is 35-40%. Left Atrium: The left atrium is severely dilated. Right Ventricle: The right ventricle is slightly dilated. Right Atrium: The right atrium is moderate to severely dilated. Aortic Valve: The aortic valve is trileaflet. The aortic valve leaflets are moderately thickened. There is mild aortic regurgitation. There is no evidence of aortic stenosis. Mitral Valve: The mitral valve leaflets are mildly thickened. There is trace of mitral regurgitation. There is no evidence of mitral stenosis. Tricuspid Valve: There is moderate tricuspid regurgitation. The right ventricular systolic pressure is calculated at 28 mmHg. There is evidence of mild pulmonary hypertension. Pulmonic Valve: There is mild pulmonic regurgitation. Pericardium: There is no pericardial effusion. Aorta: There is no dilatation of the aortic root. Venous: The inferior vena cava appears normal in size. Measurements Chambers 2D Name Value Normal Range IVSd (2D) 1.27 cm (0.6 - 1.1) LVPWd (2D) 1.06 cm (0.6 - 1.1) LVIDd (2D) 4.06 cm (3.7 - 5.6) LVIDs (2D) 2.91 cm (2 - 3.8) LV FS (2D) 28.16 % - EF Teichholz (2D) 54.96 % - Ao root diameter (2D) 2.83 cm (2 - 3.7) Volumes/Mass Name Value Normal Range LA ESV SP 4CH (A/L) 74.63 ml - LA ESV SP 2CH (A/L) 67.89 ml - LA ESV BP (A/L) 81.32 ml - LA ESV BP (A/L) index 54.21 ml/m2 - LA ESV SP 4CH (MOD) 65.06 ml - LA ESV SP 2CH (MOD) 65.08 ml - LA ESV BP (MOD) 74.22 ml - LA ESV BP (MOD) index 49.48 ml/m2 - LV EDV SP 4CH (MOD) 46.88 ml - LV ESV SP 4CH (MOD) 14.91 ml - EF SP 4CH (MOD) 68.19 % - LV EDV SP 2CH (MOD) 26.53 ml - LV ESV SP 2CH (MOD) 11.71 ml - EF SP 2CH (MOD) 55.86 % - LV EDV BP 37.95 ml - LV ESV BP 13.85 ml - BP EF (MOD) 63.51 % - Diastolic/Systolic Function Name Value Normal Range MV E-wave Vmax 0.8 m/sec - MV deceleration time 145.29 msec - Aortic Valve Name Value Normal Range AV Vmax 0.79 m/sec - AV VTI 9.87 cm - AV peak gradient 2.5 mmHg - AV mean gradient 0.94 mmHg - LVOT diameter 2.12 cm - LVOT Vmax 0.69 m/sec - LVOT VTI 12.18 cm - LVOT peak gradient 1.93 mmHg - LVOT mean gradient 1.04 mmHg - SV LVOT 42.84 ml - YAMILA (continuity Vmax) 3.08 cm2 - YAMILA (continuity VTI) 4.34 cm2 - AR PHT 498.2 msec - AR peak gradient 55.86 mmHg - Tricuspid Valve Name Value Normal Range TR Vmax 2.52 m/sec - TR peak gradient 25.41 mmHg - RAP 3 mmHg - RVSP 28 mmHg - Pulmonic Valve/Qp:Qs Name Value Normal Range PV Vmax 0.74 m/sec - PV VTI 10.83 cm - PV peak gradient 2.2 mmHg - PV mean gradient 1.08 mmHg - ID end-diastolic Vmax 1.28 m/sec - RVOT Vmax 0.01 m/sec - RVOT VTI 11.04 cm - RVOT peak gradient 2.38 mmHg - Miranda/IV: Voiding Method Condom Catheter IV Catheter Type [Right INT / Saline Lock Forearm] Active Medications - Current Medications Current Medications: Generic Name Dose Route Start Last Admin Trade Name Freq PRN Reason Stop Dose Admin Acetaminophen 650 mg 10/11/19 02:03 Tylenol PO Q4H PRN Pain MILD(1-3)/Fever >100.5/ANNE Aspirin 81 mg 10/14/19 10:00 Halfprin Ec PO QDAY NETO Enoxaparin Sodium 30 mg 10/14/19 10:00 Enoxaparin SUB-Q QDAY NETO Hydralazine HCl 5 mg 10/11/19 08:00 Apresoline IV Q30MIN PRN Hypertension Piperacillin Sod/Tazobactam Sod 2.25 gm in 50 mls @ 100 mls/hr 10/13/19 14:00 10/13/19 13:04 Zosyn/Ns 2.25 Gm/50ml IV 10/15/19 23:59 100 mls/hr Q8HR NETO Administration Protocol Sodium Chloride 1,000 mls @ 75 mls/hr 10/13/19 13:45 Nacl 0.9% 1000 Ml IV 10/15/19 13:44 DIRECT NETO Isosorbide Dinitrate/Hydralazine 1 each 10/13/19 14:00 Bidil 20/37.5mg PO Q8HR NETO Labetalol HCl 10 mg 10/11/19 13:00 10/11/19 13:22 Labetalol IV 10 mg Q4H PRN Administration Hypertension Metoprolol Tartrate 50 mg 10/11/19 10:00 10/13/19 09:47 Metoprolol PO 50 mg BID NETO Administration Metoprolol Tartrate 2.5 mg 10/11/19 13:59 10/11/19 15:54 Metoprolol IV 2.5 mg Q6HR PRN Administration HR>130 Ondansetron HCl 4 mg 10/11/19 02:03 Zofran IV Q8H PRN Nausea And Vomiting Sodium Chloride 10 ml 10/11/19 10:00 10/13/19 10:05 Sodium Chloride Flush Syringe 10 Ml IV 10 ml BID NETO Administration Sodium Chloride 10 ml 10/11/19 02:03 Sodium Chloride Flush Syringe 10 Ml IV PRN PRN LINE FLUSH Nutrition/Malnutrition Assess - Dietary Evaluation Nutrition/Malnutrition Findings: Nutrition Notes Start: 10/11/19 13:24 Freq: Status: Active Protocol: Document 10/13/19 12:14 LM (Rec: 10/13/19 12:24 LM [email or web address]) Nutrition Notes Initial or Follow up Reassessment Current Diagnosis Acute Kidney Injury, Hypertension Other Pertinent Diagnosis dehydration, Afib, AMS Current Diet pureed diet Labs/Tests BUN 100 Cr 3.7 BG 148 Pertinent Medications NaCl at 50ml/hr Height 5 ft 6 in Weight 46.1 kg [place] Body Weight (kg) 64.54 BMI 16.4 Weight Status Underweight Subjective/Other Information Spoke to RN. RN stated she is unable to give information about pt. Pt's diet changed to pureed. Per chart, pt has 0- 25% intakes recordered yesterday in chart. Burn Absent Trauma Absent GI Symptoms Nausea,Vomiting Current % PO Negligible Minimum of two criteria No Energy Intake (non-severe) <75% Estimated Energy Requirement >7 days #1 Nutrition Diagnosis Inadequate oral intake Diagnosis Progress(for reassessment Continues documentation) Is patient on ventilator? No Is Patient Ambulatory and/or Out of Bed No REE-([facility]-confined to bed) 1325.916 Kcal/Kg value to use for calculation 39 Approximate Energy Requirements Using 1798 kcal/Kg Calculation Used for Recommendations Kcal/kg Additional Notes Protein: 37-55g (0.8-1.2g/kg) FluidL 1 ml/kcal or per MD Nutrition Intervention Change Diet Order: Continued pureed or start enteral nutrition if intakes continue to be <50% Add Supplement/Snack (indicate name/kcal Ensure Enlive TID /protein ) Provides kCal: 1,050 Provides Protein (gm) 60 Goal #1 Meet at least 80% of energy and protein needs Anticipated Discharge Needs: cardiac with ONS Follow-Up By: 10/16/19 Additional Comments F/U for PO/ONS intakes, POC
[2019-10-13] MEDS: ISOSORB DINIT/HYDRALAZINE 20-37.5MG TAB PO SCH ×2 (14:29→22:29)
[2019-10-13] MEDS: SODIUM CHLORIDE 0.9% 1000 ML 1,000 ML IV SCH (14:29)
[2019-10-14] MEDS: SODIUM CHLORIDE 0.9% 1000 ML 1,000 ML IV SCH (01:23)
[2019-10-14] MEDS: ISOSORB DINIT/HYDRALAZINE 20-37.5MG TAB PO SCH ×3 (05:34→22:28)
[2019-10-14] MEDS: PIPERACIL-TAZO 2.25 GM/50 ML 2.25 GM/50 ML BAG IV SCH ×3 (05:34→22:29)
[2019-10-14 06:52] LABS: Basophils % (Auto) 0.1 % (0.0-1.8); Eosinophils % (Auto) 0.1 % (0.0-4.3); Hematocrit 40.7 % (35.5-45.6); Hemoglobin 13.6 gm/dl (11.8-15.2); Lymphocytes # (Auto) 0.6 K/mm3 (1.2-5.4); Lymphocytes % (Auto) 5.7 % (13.4-35.0); Mean Corpuscular HGB Conc 34 % (32-34); Mean Corpuscular Volume 100 fl (84-94); Monocytes # (Auto) 0.6 K/mm3 (0.0-0.8); Monocytes % (Auto) 5.7 % (0.0-7.3); Red Blood Count 4.05 M/mm3 (3.65-5.03); Red Cell Distribution Width 14.4 % (13.2-15.2)
[2019-10-14 07:01] LABS: Platelet Count 90 K/mm3 (140-440)
[2019-10-14 07:14] LABS: Calcium 7.9 mg/dL (8.4-10.2)
[2019-10-14] MEDS ORDERED: SODIUM BICARBONATE 100 MEQ in DEXTROSE 5% IN WATER 1,000 ML IV ONE (09:51)
--- NOTE | 2019-10-14 09:59 | Consultation ---
History of Present Illness - Reason for Consult Consult date: 10/14/19 acute renal failure - History of Present Illness patient is a 84-year-old man with a history of hypertension, A. fib was sent to the emergency room on 10/10 for evaluation. He has been having nausea vomiting, decreased oral intake and reports of fever. he was found to be in A. fib with RVR, converted with Cardizem and was evaluated by cardiology, he was noted to have worsening kidney function and renal consult was requested Medications and Allergies Allergies Allergy/AdvReac Type Severity Reaction Status Date / Time No Known Allergies Allergy Unverified 10/10/19 21:31 Home Medications Medication Instructions Recorded Confirmed Last Taken Type Metoprolol 10/10/19 Unknown History Active Meds: Active Medications Acetaminophen (Tylenol) 650 mg PO Q4H PRN PRN Reason: Pain MILD(1-3)/Fever >100.5/ANNE Aspirin (Halfprin Ec) 81 mg PO QDAY NETO Enoxaparin Sodium (Enoxaparin) 30 mg SUB-Q QDAY NETO Hydralazine HCl (Apresoline) 5 mg IV Q30MIN PRN PRN Reason: Hypertension Piperacillin Sod/Tazobactam Sod (Zosyn/Ns 2.25 Gm/50ml) 2.25 gm in 50 mls @ 100 mls/hr IV Q8HR [facility]; Protocol Stop: 10/15/19 23:59 Last Admin: 10/14/19 05:34 Dose: 100 mls/hr Documented by: Sodium Bicarbonate 100 meq/ (Dextrose) 1,100 mls @ 100 mls/hr IV DIRECT ONE Stop: 10/14/19 20:50 Isosorbide Dinitrate/Hydralazine (Bidil 20/37.5mg) 1 each PO Q8HR [facility] Last Admin: 10/14/19 05:34 Dose: 1 each Documented by: Labetalol HCl (Labetalol) 10 mg IV Q4H PRN PRN Reason: Hypertension Last Admin: 10/11/19 13:22 Dose: 10 mg Documented by: Metoprolol Tartrate (Metoprolol) 50 mg PO BID NETO Last Admin: 10/13/19 22:30 Dose: Not Given Documented by: Ondansetron HCl (Zofran) 4 mg IV Q8H PRN PRN Reason: Nausea And Vomiting Sodium Chloride (Sodium Chloride Flush Syringe 10 Ml) 10 ml IV BID NETO Last Admin: 10/13/19 21:24 Dose: 10 ml Documented by: Sodium Chloride (Sodium Chloride Flush Syringe 10 Ml) 10 ml IV PRN PRN PRN Reason: LINE FLUSH Review of Systems ROS unobtainable: due to mental status Exam - Vital Signs Vital signs: Vital Signs Temp 97.6 F 10/10/19 21:02 - General Appearance General appearance: well-developed, well-nourished EENT: ATNC Neck: Present: neck supple Respiratory: Clear to Ascultation Heart: irregular Gastrointestinal: Present: normoactive bowel sounds Integumentary: no rash, warm and dry Neurologic: no focal deficit Musculoskeletal: Present: other (no edema) Psychiatric: cooperative Results - Lab Results 10/14/19 06:16 10/14/19 06:16 Most recent lab results Calcium 7.9 mg/dL (8.4-10.2) L 10/14/19 06:16 Assessment and Plan Acute renal failure, possible ischemic ATN from low BP, also possible TTP/HUS Sepsis Afib with RVR Hypotension Thrombocytopenia will check LDH and blood smear, please consult hematology to r/o TMA will check renal US will check urine lytes, protein and eos may need HD soon if Cr and BUN cont to rise Strict I&O daily weight renally dose meds Jamey Lang MD [phone]
[2019-10-14] MEDS ORDERED: SPIRONOLACTONE 25 MG TAB PO SCH (10:00)
[2019-10-14] MEDS ORDERED: ASPIRIN 325 MG TAB PO SCH (10:00)
--- NOTE | 2019-10-14 10:22 | Progress Note ---
Assessment and Plan Assessment and plan: Assessment SIRS Cont IV Zosyn, obtain cultures A. fib with RVR, status post conversion DC heparin drip, patient thrombocytopenic Hypertension uncontrolled Start IV hydralazine, Nitropaste, monitor PRIMO due to ATN Nephrology followinbg Hypernatremia Nephrology following Hypokalemia replace Dehydration Start gentle IV fluids Thrombocytopenia discussed with nephrology consult hematology email marketing manager for possible placement DVT prophylaxis with SCDs only because of low platelets History Interval history: Patient with dementia, failure to thrive with afib,presented with nausea, vomiting Hospitalist Physical - Physical exam Narrative exam: GEN: Not in acute distress, malnourished HEENT: Normocephalic, atraumatic, Neck: supple, No JVD Lungs: Clear to auscultation bilaterally, heart;S1 and S2 reg, no murmurs, rubs or gallop Abd:soft, non tender, non distended, normal bowel sounds, Ext: No edema, no clubbing, no cyanosis, Neuro: Awake, - Constitutional Vitals: Temp Pulse Resp BP Pulse Ox 97.2 F L 82 20 111/59 96 10/14/19 08:30 10/14/19 08:30 10/14/19 08:30 10/14/19 08:30 10/14/19 08:30 General appearance: Present: no acute distress Results - Labs CBC & Chem 7: 10/14/19 06:16 10/14/19 06:16 Labs: Laboratory Last Values WBC 9.8 K/mm3 (4.5-11.0) 10/14/19 06:16 RBC 4.05 M/mm3 (3.65-5.03) 10/14/19 06:16 Hgb 13.6 gm/dl (11.8-15.2) 10/14/19 06:16 Hct 40.7 % (35.5-45.6) 10/14/19 06:16 MCV 100 fl (84-94) H 10/14/19 06:16 MCH 34 pg (28-32) H 10/14/19 06:16 MCHC 34 % (32-34) 10/14/19 06:16 RDW 14.4 % (13.2-15.2) 10/14/19 06:16 Plt Count 90 K/mm3 (140-440) L 10/14/19 06:16 Lymph % (Auto) 5.7 % (13.4-35.0) L 10/14/19 06:16 [place] % (Auto) 5.7 % (0.0-7.3) 10/14/19 06:16 Eos % (Auto) 0.1 % (0.0-4.3) 10/14/19 06:16 Baso % (Auto) 0.1 % (0.0-1.8) 10/14/19 06:16 Lymph # 0.6 K/mm3 (1.2-5.4) L 10/14/19 06:16 [place] # 0.6 K/mm3 (0.0-0.8) 10/14/19 06:16 Eos # 0.0 K/mm3 (0.0-0.4) 10/14/19 06:16 Baso # 0.0 K/mm3 (0.0-0.1) 10/14/19 06:16 Add Manual Diff Complete 10/11/19 04:42 Total Counted 100 10/11/19 04:42 Seg Neutrophils % 88.4 % (40.0-70.0) H 10/14/19 06:16 Seg Neuts % (Manual) 93.0 % (40.0-70.0) H 10/11/19 04:42 Band Neutrophils % 1.0 % 10/11/19 04:42 Lymphocytes % (Manual) 2.0 % (13.4-35.0) L 10/11/19 04:42 Reactive Lymphs % (Man) 0 % 10/11/19 04:42 Monocytes % (Manual) 4.0 % (0.0-7.3) 10/11/19 04:42 Eosinophils % (Manual) 0 % (0.0-4.3) 10/11/19 04:42 Basophils % (Manual) 0 % (0.0-1.8) 10/11/19 04:42 Metamyelocytes % 0 % 10/11/19 04:42 Myelocytes % 0 % 10/11/19 04:42 Promyelocytes % 0 % 10/11/19 04:42 Blast Cells % 0 % 10/11/19 04:42 Nucleated RBC % Not Reportable 10/11/19 04:42 Seg Neutrophils # 8.6 K/mm3 (1.8-7.7) H 10/14/19 06:16 Seg Neutrophils # Man 14.8 K/mm3 (1.8-7.7) H 10/11/19 04:42 Band Neutrophils # 0.2 K/mm3 10/11/19 04:42 Lymphocytes # (Manual) 0.3 K/mm3 (1.2-5.4) L 10/11/19 04:42 Abs React Lymphs (Man) 0.0 K/mm3 10/11/19 04:42 Monocytes # (Manual) 0.6 K/mm3 (0.0-0.8) 10/11/19 04:42 Eosinophils # (Manual) 0.0 K/mm3 (0.0-0.4) 10/11/19 04:42 Basophils # (Manual) 0.0 K/mm3 (0.0-0.1) 10/11/19 04:42 Metamyelocytes # 0.0 K/mm3 10/11/19 04:42 Myelocytes # 0.0 K/mm3 10/11/19 04:42 Promyelocytes # 0.0 K/mm3 10/11/19 04:42 Blast Cells # 0.0 K/mm3 10/11/19 04:42 WBC Morphology Not Reportable 10/11/19 04:42 Hypersegmented Neuts Not Reportable 10/11/19 04:42 Hyposegmented Neuts Not Reportable 10/11/19 04:42 Hypogranular Neuts Not Reportable 10/11/19 04:42 Smudge Cells Not Reportable 10/11/19 04:42 Toxic Granulation Not Reportable 10/11/19 04:42 Toxic Vacuolation Not Reportable 10/11/19 04:42 Dohle Bodies Not Reportable 10/11/19 04:42 Pelger-Huet Anomaly Not Reportable 10/11/19 04:42 Glenys Rods Not Reportable 10/11/19 04:42 Platelet Estimate Consistent w auto 10/11/19 04:42 Clumped Platelets Not Reportable 10/11/19 04:42 Plt Clumps, EDTA Not Reportable 10/11/19 04:42 Large Platelets Not Reportable 10/11/19 04:42 Giant Platelets Not Reportable 10/11/19 04:42 Platelet Satelliting Not Reportable 10/11/19 04:42 Plt Morphology Comment Not Reportable 10/11/19 04:42 RBC Morphology Not Reportable 10/11/19 04:42 Dimorphic RBCs Not Reportable 10/11/19 04:42 Polychromasia Not Reportable 10/11/19 04:42 Hypochromasia Not Reportable 10/11/19 04:42 Poikilocytosis Not Reportable 10/11/19 04:42 Anisocytosis Not Reportable 10/11/19 04:42 Microcytosis Not Reportable 10/11/19 04:42 Macrocytosis Not Reportable 10/11/19 04:42 Spherocytes Not Reportable 10/11/19 04:42 Pappenheimer Bodies Not Reportable 10/11/19 04:42 Sickle Cells Not Reportable 10/11/19 04:42 Target Cells Not Reportable 10/11/19 04:42 Tear Drop Cells Not Reportable 10/11/19 04:42 Ovalocytes Not Reportable 10/11/19 04:42 Helmet Cells Not Reportable 10/11/19 04:42 [place] Bodies Not Reportable 10/11/19 04:42 [place] Rings Not Reportable 10/11/19 04:42 Paula Cells Not Reportable 10/11/19 04:42 Bite Cells Not Reportable 10/11/19 04:42 Crenated Cell Not Reportable 10/11/19 04:42 Elliptocytes Rare 10/11/19 04:42 Acanthocytes (Spur) Not Reportable 10/11/19 04:42 Rouleaux Not Reportable 10/11/19 04:42 Hemoglobin C Crystals Not Reportable 10/11/19 04:42 Schistocytes Not Reportable 10/11/19 04:42 Malaria parasites Not Reportable 10/11/19 04:42 Robin Bodies Not Reportable 10/11/19 04:42 Hem Pathologist Commnt No 10/11/19 04:42 PT 15.1 Sec. (12.2-14.9) H 10/11/19 01:13 INR 1.18 (0.87-1.13) H 10/11/19 01:13 APTT 32.9 Sec. (24.2-36.6) 10/11/19 01:13 Sodium 151 mmol/L (137-145) H 10/14/19 06:16 Potassium 3.5 mmol/L (3.6-5.0) L 10/14/19 06:16 Chloride 115.7 mmol/L (98-107) H 10/14/19 06:16 Carbon Dioxide 14 mmol/L (22-30) L 10/14/19 06:16 Anion Gap 25 mmol/L 10/14/19 06:16 BUN 121 mg/dL (9-20) H 10/14/19 06:16 Creatinine 4.1 mg/dL (0.8-1.5) H 10/14/19 06:16 Estimated GFR 14 ml/min 10/14/19 06:16 BUN/Creatinine Ratio 30 % 10/14/19 06:16 Glucose 162 mg/dL (75-100) H 10/14/19 06:16 POC Glucose 139 (70-105) H 10/13/19 18:18 Lactic Acid 3.20 mmol/L (0.7-2.0) H* 10/10/19 23:04 Calcium 7.9 mg/dL (8.4-10.2) L 10/14/19 06:16 Total Bilirubin 2.50 mg/dL (0.1-1.2) H 10/10/19 21:40 AST 39 units/L (5-40) 10/10/19 21:40 ALT 22 units/L (7-56) 10/10/19 21:40 Alkaline Phosphatase 102 units/L (35-129) 10/10/19 21:40 Ammonia 54.0 umol/L (25-60) 10/10/19 21:40 Troponin T 0.024 ng/mL (0.00-0.029) 10/10/19 21:40 Total Protein 7.6 g/dL (6.3-8.2) 10/10/19 21:40 Albumin 4.1 g/dL (3.9-5) 10/10/19 21:40 Albumin/Globulin Ratio 1.2 % 10/10/19 21:40 TSH 2.550 mlU/mL (0.270-4.200) 10/10/19 21:40 Urine Color Yellow (Yellow) 10/10/19 23:18 Urine Turbidity Clear (Clear) 10/10/19 23:18 Urine pH 6.0 (5.0-7.0) 10/10/19 23:18 Ur Specific [place] 1.015 (1.003-1.030) 10/10/19 23:18 Urine Protein 300 mg/dl mg/dL (Negative) 10/10/19 23:18 Urine Glucose (UA) 50 mg/dL (Negative) 10/10/19 23:18 Urine Ketones Neg mg/dL (Negative) 10/10/19 23:18 Urine Blood Sm (Negative) 10/10/19 23:18 Urine Nitrite Neg (Negative) 10/10/19 23:18 Urine Bilirubin Neg (Negative) 10/10/19 23:18 Urine Urobilinogen < 2.0 mg/dL (<2.0) 10/10/19 23:18 Ur Leukocyte Esterase Neg (Negative) 10/10/19 23:18 Urine WBC (Auto) 1.0 /HPF (0.0-6.0) 10/10/19 23:18 Urine RBC (Auto) 9.0 /HPF (0.0-6.0) 10/10/19 23:18 U Epithel Cells (Auto) < 1.0 /HPF (0-13.0) 10/10/19 23:18 Urine Bacteria (Auto) 1+ /HPF (Negative) 10/10/19 23:18 Hyaline Casts 6 /LPF 10/10/19 23:18 Urine Mucus Few /HPF 10/10/19 23:18 Coronavirus (PCR) Negative (Negative) 10/11/19 11:14 Influenza A (Rapid) Negative (Negative) 10/10/19 22:25 Influenza B (Rapid) Negative (Negative) 10/10/19 22:25 Microbiology: Microbiology 10/10/19 21:40 Peripheral/Venous Blood Culture - Preliminary NO GROWTH AFTER 72 HOURS 10/10/19 21:40 Peripheral/Venous Blood Culture - Preliminary NO GROWTH AFTER 72 HOURS - Diagnostic Impressions Diagnostic Impressions: Echocardiogram 10/12/19 09:05 Transthoracic Echocardiogram Indication: Afib, HTN BP: 135/78 HR: 115 Conclusions *Global left ventricular systolic function is moderately decreased. *The estimated ejection fraction is 35-40%, but optimal assessment is limited by irregular heart rate. *Mild concentric left ventricular hypertrophy is observed. *The left and right atria are both severely dilated. *There is mild aortic regurgitation. *There is trace-mild mitral regurgitation. *There is moderate tricuspid regurgitation. *There is evidence of mild pulmonary hypertension. *The right ventricular systolic pressure is calculated at 28 mmHg. Findings Left Ventricle: The left ventricular chamber size is mildly dilated. Mild concentric left ventricular hypertrophy is observed. Global left ventricular systolic function is moderately decreased. The estimated ejection fraction is 35-40%. Left Atrium: The left atrium is severely dilated. Right Ventricle: The right ventricle is slightly dilated. Right Atrium: The right atrium is moderate to severely dilated. Aortic Valve: The aortic valve is trileaflet. The aortic valve leaflets are moderately thickened. There is mild aortic regurgitation. There is no evidence of aortic stenosis. Mitral Valve: The mitral valve leaflets are mildly thickened. There is trace of mitral regurgitation. There is no evidence of mitral stenosis. Tricuspid Valve: There is moderate tricuspid regurgitation. The right ventricular systolic pressure is calculated at 28 mmHg. There is evidence of mild pulmonary hypertension. Pulmonic Valve: There is mild pulmonic regurgitation. Pericardium: There is no pericardial effusion. Aorta: There is no dilatation of the aortic root. Venous: The inferior vena cava appears normal in size. Measurements Chambers 2D Name Value Normal Range IVSd (2D) 1.27 cm (0.6 - 1.1) LVPWd (2D) 1.06 cm (0.6 - 1.1) LVIDd (2D) 4.06 cm (3.7 - 5.6) LVIDs (2D) 2.91 cm (2 - 3.8) LV FS (2D) 28.16 % - EF Teichholz (2D) 54.96 % - Ao root diameter (2D) 2.83 cm (2 - 3.7) Volumes/Mass Name Value Normal Range LA ESV SP 4CH (A/L) 74.63 ml - LA ESV SP 2CH (A/L) 67.89 ml - LA ESV BP (A/L) 81.32 ml - LA ESV BP (A/L) index 54.21 ml/m2 - LA ESV SP 4CH (MOD) 65.06 ml - LA ESV SP 2CH (MOD) 65.08 ml - LA ESV BP (MOD) 74.22 ml - LA ESV BP (MOD) index 49.48 ml/m2 - LV EDV SP 4CH (MOD) 46.88 ml - LV ESV SP 4CH (MOD) 14.91 ml - EF SP 4CH (MOD) 68.19 % - LV EDV SP 2CH (MOD) 26.53 ml - LV ESV SP 2CH (MOD) 11.71 ml - EF SP 2CH (MOD) 55.86 % - LV EDV BP 37.95 ml - LV ESV BP 13.85 ml - BP EF (MOD) 63.51 % - Diastolic/Systolic Function Name Value Normal Range MV E-wave Vmax 0.8 m/sec - MV deceleration time 145.29 msec - Aortic Valve Name Value Normal Range AV Vmax 0.79 m/sec - AV VTI 9.87 cm - AV peak gradient 2.5 mmHg - AV mean gradient 0.94 mmHg - LVOT diameter 2.12 cm - LVOT Vmax 0.69 m/sec - LVOT VTI 12.18 cm - LVOT peak gradient 1.93 mmHg - LVOT mean gradient 1.04 mmHg - SV LVOT 42.84 ml - YAMILA (continuity Vmax) 3.08 cm2 - YAMILA (continuity VTI) 4.34 cm2 - AR PHT 498.2 msec - AR peak gradient 55.86 mmHg - Tricuspid Valve Name Value Normal Range TR Vmax 2.52 m/sec - TR peak gradient 25.41 mmHg - RAP 3 mmHg - RVSP 28 mmHg - Pulmonic Valve/Qp:Qs Name Value Normal Range PV Vmax 0.74 m/sec - PV VTI 10.83 cm - PV peak gradient 2.2 mmHg - PV mean gradient 1.08 mmHg - TN end-diastolic Vmax 1.28 m/sec - RVOT Vmax 0.01 m/sec - RVOT VTI 11.04 cm - RVOT peak gradient 2.38 mmHg - Miranda/IV: Voiding Method Condom Catheter IV Catheter Type [Left Forearm Peripheral IV ] IV Catheter Type [Right INT / Saline Lock Forearm] Active Medications - Current Medications Current Medications: Generic Name Dose Route Start Last Admin Trade Name Freq PRN Reason Stop Dose Admin Acetaminophen 650 mg 10/11/19 02:03 Tylenol PO Q4H PRN Pain MILD(1-3)/Fever >100.5/ANNE Aspirin 81 mg 10/14/19 10:00 Halfprin Ec PO QDAY NETO Enoxaparin Sodium 30 mg 10/14/19 10:00 Enoxaparin SUB-Q QDAY NETO Hydralazine HCl 5 mg 10/11/19 08:00 Apresoline IV Q30MIN PRN Hypertension Piperacillin Sod/Tazobactam Sod 2.25 gm in 50 mls @ 100 mls/hr 10/13/19 14:00 10/14/19 05:34 Zosyn/Ns 2.25 Gm/50ml IV 10/15/19 23:59 100 mls/hr Q8HR NETO Administration Protocol Sodium Bicarbonate 100 meq/ 1,100 mls @ 100 mls/hr 10/14/19 09:51 Dextrose IV 10/14/19 20:50 DIRECT ONE Isosorbide Dinitrate/Hydralazine 1 each 10/13/19 14:00 10/14/19 05:34 Bidil 20/37.5mg PO 1 each Q8HR NETO Administration Labetalol HCl 10 mg 10/11/19 13:00 10/11/19 13:22 Labetalol IV 10 mg Q4H PRN Administration Hypertension Metoprolol Tartrate 50 mg 10/11/19 10:00 10/13/19 22:30 Metoprolol PO Not Given BID NETO Ondansetron HCl 4 mg 10/11/19 02:03 Zofran IV Q8H PRN Nausea And Vomiting Sodium Chloride 10 ml 10/11/19 10:00 10/13/19 21:24 Sodium Chloride Flush Syringe 10 Ml IV 10 ml BID NETO Administration Sodium Chloride 10 ml 10/11/19 02:03 Sodium Chloride Flush Syringe 10 Ml IV PRN PRN LINE FLUSH Nutrition/Malnutrition Assess - Dietary Evaluation Nutrition/Malnutrition Findings: Nutrition Notes Start: 10/11/19 13:24 Freq: Status: Active Protocol: Document 10/13/19 12:14 LM (Rec: 10/13/19 12:24 LM [id number]) Nutrition Notes Initial or Follow up Reassessment Current Diagnosis Acute Kidney Injury, Hypertension Other Pertinent Diagnosis dehydration, Afib, AMS Current Diet pureed diet Labs/Tests BUN 100 Cr 3.7 BG 148 Pertinent Medications NaCl at 50ml/hr Height 5 ft 6 in Weight 46.1 kg [place] Body Weight (kg) 64.54 BMI 16.4 Weight Status Underweight Subjective/Other Information Spoke to RN. RN stated she is unable to give information about pt. Pt's diet changed to pureed. Per chart, pt has 0- 25% intakes recordered yesterday in chart. Burn Absent Trauma Absent GI Symptoms Nausea,Vomiting Current % PO Negligible Minimum of two criteria No Energy Intake (non-severe) <75% Estimated Energy Requirement >7 days #1 Nutrition Diagnosis Inadequate oral intake Diagnosis Progress(for reassessment Continues documentation) Is patient on ventilator? No Is Patient Ambulatory and/or Out of Bed No REE-([facility]-confined to bed) 1325.916 Kcal/Kg value to use for calculation 39 Approximate Energy Requirements Using 1798 kcal/Kg Calculation Used for Recommendations Kcal/kg Additional Notes Protein: 37-55g (0.8-1.2g/kg) FluidL 1 ml/kcal or per MD Nutrition Intervention Change Diet Order: Continued pureed or start enteral nutrition if intakes continue to be <50% Add Supplement/Snack (indicate name/kcal Ensure Enlive TID /protein ) Provides kCal: 1,050 Provides Protein (gm) 60 Goal #1 Meet at least 80% of energy and protein needs Anticipated Discharge Needs: cardiac with ONS Follow-Up By: 10/16/19 Additional Comments F/U for PO/ONS intakes, POC
--- NOTE | 2019-10-14 10:33 | XRay Report ---
CHEST 1 VIEW 10/14/2019 9:13 AM INDICATION / CLINICAL INFORMATION: SOB. COMPARISON: 10/10/19 FINDINGS: SUPPORT DEVICES: None. HEART / MEDIASTINUM: Heart is enlarged but stable. LUNGS / PLEURA: No significant pulmonary or pleural abnormality. No pneumothorax. ADDITIONAL FINDINGS: No significant additional findings. IMPRESSION: 1. Stable cardiomegaly but no acute pulmonary or pleural findings. Signer Name: Naty Ugalde MD Signed: 10/14/2019 10:29 AM Workstation Name: [email or web address] [id number]
[2019-10-14] MEDS: ASPIRIN EC 81 MG TAB PO SCH (10:50)
[2019-10-14] MEDS: METOPROLOL TARTRATE 50 MG TAB PO SCH ×2 (10:50→22:30)
[2019-10-14] MEDS: ENOXAPARIN 30 MG/0.3 ML INJ SUB-Q SCH (11:01)
[2019-10-14 12:34] LABS: Smear for Schistocytes None Seen
--- NOTE | 2019-10-14 15:08 | Progress Note ---
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 Acute renal failure Recommend: Continue current therapy - will continue to pursue rate control strategy Nephrology evaluation ongoing Subjective Date of service: 10/14/19 Interval history: Worsening renal function and nephrology evaluation noted. Objective Vital Signs Temp Pulse Pulse Resp BP BP Pulse Ox 10/14/19 12:28 97.7 F 70 20 111/64 98 10/14/19 08:30 97.2 F L 82 20 111/59 96 10/14/19 05:34 98 H 124/59 10/14/19 04:55 124/59 10/14/19 04:30 96.9 F L 58 L 16 96 10/14/19 00:52 79 94 10/14/19 00:26 97.6 F 16 105/68 10/13/19 22:30 103 H 99/58 10/13/19 22:29 103 H 99/58 10/13/19 22:00 97 H 10/13/19 20:56 97.6 F 103 H 16 99/58 96 10/13/19 20:10 97.5 F L 16 10/13/19 20:00 103 H 20 97 10/13/19 17:57 99.0 F 72 18 86/44 93 - Physical Examination General: No Apparent Distress HEENT: Positive: PERRL Neck: Positive: neck supple Cardiac: Positive: Reg Rate and Rhythm Lungs: Positive: clear to auscultation Extremities: Absent: edema - Labs and Meds Cardiac Enzymes 10/14/19 Range/Units 10:56 Lactate Dehydrogenase 331 H (91-180) units/L CBC 10/14/19 Range/Units 06:16 WBC 9.8 (4.5-11.0) K/mm3 RBC 4.05 (3.65-5.03) M/mm3 Hgb 13.6 (11.8-15.2) gm/dl Hct 40.7 (35.5-45.6) % Plt Count 90 L (140-440) K/mm3 Lymph # 0.6 L (1.2-5.4) K/mm3 [place] # 0.6 (0.0-0.8) K/mm3 Eos # 0.0 (0.0-0.4) K/mm3 Baso # 0.0 (0.0-0.1) K/mm3 Comprehensive Metabolic Panel 10/14/19 Range/Units 06:16 Sodium 151 H (137-145) mmol/L Potassium 3.5 L (3.6-5.0) mmol/L Chloride 115.7 H (98-107) mmol/L Carbon Dioxide 14 L (22-30) mmol/L BUN 121 H (9-20) mg/dL Creatinine 4.1 H (0.8-1.5) mg/dL Glucose 162 H (75-100) mg/dL Calcium 7.9 L (8.4-10.2) mg/dL
[2019-10-15 06:17] LABS: Basophils % (Auto) 0.2 % (0.0-1.8); Eosinophils # (Auto) 0.1 K/mm3 (0.0-0.4); Eosinophils % (Auto) 0.7 % (0.0-4.3); Hematocrit 38.8 % (35.5-45.6); Hemoglobin 13.2 gm/dl (11.8-15.2); Lymphocytes # (Auto) 0.6 K/mm3 (1.2-5.4); Lymphocytes % (Auto) 6.4 % (13.4-35.0); Mean Corpuscular HGB Conc 34 % (32-34); Mean Corpuscular Volume 99 fl (84-94); Monocytes # (Auto) 0.5 K/mm3 (0.0-0.8); Monocytes % (Auto) 5.9 % (0.0-7.3); Red Blood Count 3.93 M/mm3 (3.65-5.03); Red Cell Distribution Width 14.3 % (13.2-15.2)
[2019-10-15 06:25] LABS: Platelet Count 98 K/mm3 (140-440)
[2019-10-15 06:37] LABS: Calcium 8.4 mg/dL (8.4-10.2)
[2019-10-15] MEDS: PIPERACIL-TAZO 2.25 GM/50 ML 2.25 GM/50 ML BAG IV SCH (06:40)
[2019-10-15] MEDS: ISOSORB DINIT/HYDRALAZINE 20-37.5MG TAB PO SCH ×4 (06:52→23:03)
--- NOTE | 2019-10-15 08:52 | Progress Note ---
Assessment and Plan Assessment and plan: Assessment SIRS Cont IV Zosyn, obtain cultures A. fib with RVR, status post conversion DC heparin drip, patient thrombocytopenic Hypertension uncontrolled Start IV hydralazine, Nitropaste, monitor PRIMO due to ATN Nephrology followinbg Hypernatremia Nephrology following Hypokalemia replace Dehydration Start gentle IV fluids Thrombocytopenia discussed with nephrology consult hematology sales support manager for possible placement DVT prophylaxis with SCDs only because of low platelets 10/15/19 patient with acute kidney injury due to ATN. Slight improvement. Cr 3.[address] Oliveira, hematology for low plaletels but he says he does not work here anymore. History Interval history: Patient with dementia, failure to thrive with afib,presented with nausea, vomiting Hospitalist Physical - Physical exam Narrative exam: GEN: Not in acute distress, malnourished HEENT: Normocephalic, atraumatic, Neck: supple, No JVD Lungs: Clear to auscultation bilaterally, heart;S1 and S2 reg, no murmurs, rubs or gallop Abd:soft, non tender, non distended, normal bowel sounds, Ext: No edema, no clubbing, no cyanosis, Neuro: Awake,alert - Constitutional Vitals: Temp Pulse Resp BP Pulse Ox 97.9 F 89 20 116/80 98 10/15/19 06:45 10/15/19 06:45 10/15/19 06:45 10/15/19 06:45 10/15/19 06:45 General appearance: Present: no acute distress Results - Labs CBC & Chem 7: 10/15/19 05:18 10/15/19 05:18 Labs: Laboratory Last Values WBC 8.7 K/mm3 (4.5-11.0) 10/15/19 05:18 RBC 3.93 M/mm3 (3.65-5.03) 10/15/19 05:18 Hgb 13.2 gm/dl (11.8-15.2) 10/15/19 05:18 Hct 38.8 % (35.5-45.6) 10/15/19 05:18 MCV 99 fl (84-94) H 10/15/19 05:18 MCH 34 pg (28-32) H 10/15/19 05:18 MCHC 34 % (32-34) 10/15/19 05:18 RDW 14.3 % (13.2-15.2) 10/15/19 05:18 Plt Count 98 K/mm3 (140-440) L 10/15/19 05:18 Lymph % (Auto) 6.4 % (13.4-35.0) L 10/15/19 05:18 Gem % (Auto) 5.9 % (0.0-7.3) 10/15/19 05:18 Eos % (Auto) 0.7 % (0.0-4.3) 10/15/19 05:18 Baso % (Auto) 0.2 % (0.0-1.8) 10/15/19 05:18 Lymph # 0.6 K/mm3 (1.2-5.4) L 10/15/19 05:18 Gem # 0.5 K/mm3 (0.0-0.8) 10/15/19 05:18 Eos # 0.1 K/mm3 (0.0-0.4) 10/15/19 05:18 Baso # 0.0 K/mm3 (0.0-0.1) 10/15/19 05:18 Add Manual Diff Complete 10/11/19 04:42 Total Counted 100 10/11/19 04:42 Seg Neutrophils % 86.8 % (40.0-70.0) H 10/15/19 05:18 Seg Neuts % (Manual) 93.0 % (40.0-70.0) H 10/11/19 04:42 Band Neutrophils % 1.0 % 10/11/19 04:42 Lymphocytes % (Manual) 2.0 % (13.4-35.0) L 10/11/19 04:42 Reactive Lymphs % (Man) 0 % 10/11/19 04:42 Monocytes % (Manual) 4.0 % (0.0-7.3) 10/11/19 04:42 Eosinophils % (Manual) 0 % (0.0-4.3) 10/11/19 04:42 Basophils % (Manual) 0 % (0.0-1.8) 10/11/19 04:42 Metamyelocytes % 0 % 10/11/19 04:42 Myelocytes % 0 % 10/11/19 04:42 Promyelocytes % 0 % 10/11/19 04:42 Blast Cells % 0 % 10/11/19 04:42 Nucleated RBC % Not Reportable 10/11/19 04:42 Seg Neutrophils # 7.5 K/mm3 (1.8-7.7) 10/15/19 05:18 Seg Neutrophils # Man 14.8 K/mm3 (1.8-7.7) H 10/11/19 04:42 Band Neutrophils # 0.2 K/mm3 10/11/19 04:42 Lymphocytes # (Manual) 0.3 K/mm3 (1.2-5.4) L 10/11/19 04:42 Abs React Lymphs (Man) 0.0 K/mm3 10/11/19 04:42 Monocytes # (Manual) 0.6 K/mm3 (0.0-0.8) 10/11/19 04:42 Eosinophils # (Manual) 0.0 K/mm3 (0.0-0.4) 10/11/19 04:42 Basophils # (Manual) 0.0 K/mm3 (0.0-0.1) 10/11/19 04:42 Metamyelocytes # 0.0 K/mm3 10/11/19 04:42 Myelocytes # 0.0 K/mm3 10/11/19 04:42 Promyelocytes # 0.0 K/mm3 10/11/19 04:42 Blast Cells # 0.0 K/mm3 10/11/19 04:42 WBC Morphology Not Reportable 10/11/19 04:42 Hypersegmented Neuts Not Reportable 10/11/19 04:42 Hyposegmented Neuts Not Reportable 10/11/19 04:42 Hypogranular Neuts Not Reportable 10/11/19 04:42 Smudge Cells Not Reportable 10/11/19 04:42 Toxic Granulation Not Reportable 10/11/19 04:42 Toxic Vacuolation Not Reportable 10/11/19 04:42 Dohle Bodies Not Reportable 10/11/19 04:42 Pelger-Huet Anomaly Not Reportable 10/11/19 04:42 Glenys Rods Not Reportable 10/11/19 04:42 Platelet Estimate Consistent w auto 10/11/19 04:42 Clumped Platelets Not Reportable 10/11/19 04:42 Plt Clumps, EDTA Not Reportable 10/11/19 04:42 Large Platelets Not Reportable 10/11/19 04:42 Giant Platelets Not Reportable 10/11/19 04:42 Platelet Satelliting Not Reportable 10/11/19 04:42 Plt Morphology Comment Not Reportable 10/11/19 04:42 RBC Morphology Not Reportable 10/11/19 04:42 Dimorphic RBCs Not Reportable 10/11/19 04:42 Polychromasia Not Reportable 10/11/19 04:42 Hypochromasia Not Reportable 10/11/19 04:42 Poikilocytosis Not Reportable 10/11/19 04:42 Anisocytosis Not Reportable 10/11/19 04:42 Microcytosis Not Reportable 10/11/19 04:42 Macrocytosis Not Reportable 10/11/19 04:42 Spherocytes Not Reportable 10/11/19 04:42 Pappenheimer Bodies Not Reportable 10/11/19 04:42 Sickle Cells Not Reportable 10/11/19 04:42 Target Cells Not Reportable 10/11/19 04:42 Tear Drop Cells Not Reportable 10/11/19 04:42 Ovalocytes Not Reportable 10/11/19 04:42 Helmet Cells Not Reportable 10/11/19 04:42 [place] Bodies Not Reportable 10/11/19 04:42 [place] Rings Not Reportable 10/11/19 04:42 Evans Cells Not Reportable 10/11/19 04:42 Bite Cells Not Reportable 10/11/19 04:42 Crenated Cell Not Reportable 10/11/19 04:42 Elliptocytes Rare 10/11/19 04:42 Acanthocytes (Spur) Not Reportable 10/11/19 04:42 Rouleaux Not Reportable 10/11/19 04:42 Hemoglobin C Crystals Not Reportable 10/11/19 04:42 Schistocytes Not Reportable 10/11/19 04:42 Malaria parasites Not Reportable 10/11/19 04:42 Robin Bodies Not Reportable 10/11/19 04:42 Hem Pathologist Commnt No 10/11/19 04:42 PT 15.1 Sec. (12.2-14.9) H 10/11/19 01:13 INR 1.18 (0.87-1.13) H 10/11/19 01:13 APTT 32.9 Sec. (24.2-36.6) 10/11/19 01:13 Sodium 158 mmol/L (137-145) H 10/15/19 05:18 Potassium 3.2 mmol/L (3.6-5.0) L 10/15/19 05:18 Chloride 117.4 mmol/L (98-107) H 10/15/19 05:18 Carbon Dioxide 20 mmol/L (22-30) L 10/15/19 05:18 Anion Gap 24 mmol/L 10/15/19 05:18 BUN 128 mg/dL (9-20) H 10/15/19 05:18 Creatinine 3.8 mg/dL (0.8-1.5) H 10/15/19 05:18 Estimated GFR 15 ml/min 10/15/19 05:18 BUN/Creatinine Ratio 34 % 10/15/19 05:18 Glucose 120 mg/dL (75-100) H 10/15/19 05:18 POC Glucose 139 (70-105) H 10/13/19 18:18 Lactic Acid 3.20 mmol/L (0.7-2.0) H* 10/10/19 23:04 Calcium 8.4 mg/dL (8.4-10.2) 10/15/19 05:18 Phosphorus 5.10 mg/dL (2.5-4.5) H 10/15/19 05:18 Total Bilirubin 2.50 mg/dL (0.1-1.2) H 10/10/19 21:40 AST 39 units/L (5-40) 10/10/19 21:40 ALT 22 units/L (7-56) 10/10/19 21:40 Alkaline Phosphatase 102 units/L (35-129) 10/10/19 21:40 Ammonia 54.0 umol/L (25-60) 10/10/19 21:40 Lactate Dehydrogenase 331 units/L (91-180) H 10/14/19 10:56 Total Creatine Kinase 563 units/L (55-170) H 10/14/19 10:56 Troponin T 0.024 ng/mL (0.00-0.029) 10/10/19 21:40 Total Protein 7.6 g/dL (6.3-8.2) 10/10/19 21:40 Albumin 4.1 g/dL (3.9-5) 10/10/19 21:40 Albumin/Globulin Ratio 1.2 % 10/10/19 21:40 TSH 2.550 mlU/mL (0.270-4.200) 10/10/19 21:40 Urine Color Yellow (Yellow) 10/10/19 23:18 Urine Turbidity Clear (Clear) 10/10/19 23:18 Urine pH 6.0 (5.0-7.0) 10/10/19 23:18 Ur Specific [place] 1.015 (1.003-1.030) 10/10/19 23:18 Urine Protein 300 mg/dl mg/dL (Negative) 10/10/19 23:18 Urine Glucose (UA) 50 mg/dL (Negative) 10/10/19 23:18 Urine Ketones Neg mg/dL (Negative) 10/10/19 23:18 Urine Blood Sm (Negative) 10/10/19 23:18 Urine Nitrite Neg (Negative) 10/10/19 23:18 Urine Bilirubin Neg (Negative) 10/10/19 23:18 Urine Urobilinogen < 2.0 mg/dL (<2.0) 10/10/19 23:18 Ur Leukocyte Esterase Neg (Negative) 10/10/19 23:18 Urine WBC (Auto) 1.0 /HPF (0.0-6.0) 10/10/19 23:18 Urine RBC (Auto) 9.0 /HPF (0.0-6.0) 10/10/19 23:18 U Epithel Cells (Auto) < 1.0 /HPF (0-13.0) 10/10/19 23:18 Urine Bacteria (Auto) 1+ /HPF (Negative) 10/10/19 23:18 Hyaline Casts 6 /LPF 10/10/19 23:18 Urine Mucus Few /HPF 10/10/19 23:18 Coronavirus (PCR) Negative (Negative) 10/11/19 11:14 Hep Bs Antigen Reactive (Negative) 10/14/19 10:56 Hepatitis C Antibody Non-reactive (NonReactive) 10/14/19 10:56 HIV 1&2 Antibody Rapid Non react (Non React) 10/14/19 10:56 HIV P24 Antigen Non react (Non React) 10/14/19 10:56 Influenza A (Rapid) Negative (Negative) 10/10/19 22:25 Influenza B (Rapid) Negative (Negative) 10/10/19 22:25 Schistocytes Smear None seen 10/14/19 10:56 Microbiology: Microbiology 10/10/19 21:40 Peripheral/Venous Blood Culture - Preliminary NO GROWTH AFTER 4 DAYS 10/10/19 21:40 Peripheral/Venous Blood Culture - Preliminary NO GROWTH AFTER 4 DAYS - Diagnostic Impressions Diagnostic Impressions: Echocardiogram 10/12/19 09:05 Transthoracic Echocardiogram Indication: Afib, HTN BP: 135/78 HR: 115 Conclusions *Global left ventricular systolic function is moderately decreased. *The estimated ejection fraction is 35-40%, but optimal assessment is limited by irregular heart rate. *Mild concentric left ventricular hypertrophy is observed. *The left and right atria are both severely dilated. *There is mild aortic regurgitation. *There is trace-mild mitral regurgitation. *There is moderate tricuspid regurgitation. *There is evidence of mild pulmonary hypertension. *The right ventricular systolic pressure is calculated at 28 mmHg. Findings Left Ventricle: The left ventricular chamber size is mildly dilated. Mild concentric left ventricular hypertrophy is observed. Global left ventricular systolic function is moderately decreased. The estimated ejection fraction is 35-40%. Left Atrium: The left atrium is severely dilated. Right Ventricle: The right ventricle is slightly dilated. Right Atrium: The right atrium is moderate to severely dilated. Aortic Valve: The aortic valve is trileaflet. The aortic valve leaflets are moderately thickened. There is mild aortic regurgitation. There is no evidence of aortic stenosis. Mitral Valve: The mitral valve leaflets are mildly thickened. There is trace of mitral regurgitation. There is no evidence of mitral stenosis. Tricuspid Valve: There is moderate tricuspid regurgitation. The right ventricular systolic pressure is calculated at 28 mmHg. There is evidence of mild pulmonary hypertension. Pulmonic Valve: There is mild pulmonic regurgitation. Pericardium: There is no pericardial effusion. Aorta: There is no dilatation of the aortic root. Venous: The inferior vena cava appears normal in size. Measurements Chambers 2D Name Value Normal Range IVSd (2D) 1.27 cm (0.6 - 1.1) LVPWd (2D) 1.06 cm (0.6 - 1.1) LVIDd (2D) 4.06 cm (3.7 - 5.6) LVIDs (2D) 2.91 cm (2 - 3.8) LV FS (2D) 28.16 % - EF Teichholz (2D) 54.96 % - Ao root diameter (2D) 2.83 cm (2 - 3.7) Volumes/Mass Name Value Normal Range LA ESV SP 4CH (A/L) 74.63 ml - LA ESV SP 2CH (A/L) 67.89 ml - LA ESV BP (A/L) 81.32 ml - LA ESV BP (A/L) index 54.21 ml/m2 - LA ESV SP 4CH (MOD) 65.06 ml - LA ESV SP 2CH (MOD) 65.08 ml - LA ESV BP (MOD) 74.22 ml - LA ESV BP (MOD) index 49.48 ml/m2 - LV EDV SP 4CH (MOD) 46.88 ml - LV ESV SP 4CH (MOD) 14.91 ml - EF SP 4CH (MOD) 68.19 % - LV EDV SP 2CH (MOD) 26.53 ml - LV ESV SP 2CH (MOD) 11.71 ml - EF SP 2CH (MOD) 55.86 % - LV EDV BP 37.95 ml - LV ESV BP 13.85 ml - BP EF (MOD) 63.51 % - Diastolic/Systolic Function Name Value Normal Range MV E-wave Vmax 0.8 m/sec - MV deceleration time 145.29 msec - Aortic Valve Name Value Normal Range AV Vmax 0.79 m/sec - AV VTI 9.87 cm - AV peak gradient 2.5 mmHg - AV mean gradient 0.94 mmHg - LVOT diameter 2.12 cm - LVOT Vmax 0.69 m/sec - LVOT VTI 12.18 cm - LVOT peak gradient 1.93 mmHg - LVOT mean gradient 1.04 mmHg - SV LVOT 42.84 ml - YAMILA (continuity Vmax) 3.08 cm2 - YAMILA (continuity VTI) 4.34 cm2 - AR PHT 498.2 msec - AR peak gradient 55.86 mmHg - Tricuspid Valve Name Value Normal Range TR Vmax 2.52 m/sec - TR peak gradient 25.41 mmHg - RAP 3 mmHg - RVSP 28 mmHg - Pulmonic Valve/Qp:Qs Name Value Normal Range PV Vmax 0.74 m/sec - PV VTI 10.83 cm - PV peak gradient 2.2 mmHg - PV mean gradient 1.08 mmHg - PA end-diastolic Vmax 1.28 m/sec - RVOT Vmax 0.01 m/sec - RVOT VTI 11.04 cm - RVOT peak gradient 2.38 mmHg - Miranda/IV: Voiding Method Condom Catheter IV Catheter Type [Left Forearm Peripheral IV ] IV Catheter Type [Right INT / Saline Lock Forearm] Active Medications - Current Medications Current Medications: Generic Name Dose Route Start Last Admin Trade Name Freq PRN Reason Stop Dose Admin Acetaminophen 650 mg 10/11/19 02:03 Tylenol PO Q4H PRN Pain MILD(1-3)/Fever >100.5/ANNE Aspirin 81 mg 10/14/19 10:00 10/14/19 10:50 Halfprin Ec PO 81 mg QDAY NETO Administration Enoxaparin Sodium 30 mg 10/14/19 10:00 10/14/19 11:01 Enoxaparin SUB-Q 30 mg QDAY NETO Administration Hydralazine HCl 5 mg 10/11/19 08:00 Apresoline IV Q30MIN PRN Hypertension Piperacillin Sod/Tazobactam Sod 2.25 gm in 50 mls @ 100 mls/hr 10/13/19 14:00 10/15/19 06:40 Zosyn/Ns 2.25 Gm/50ml IV 10/15/19 23:59 100 mls/hr Q8HR NETO Administration Protocol Isosorbide Dinitrate/Hydralazine 1 each 10/13/19 14:00 10/15/19 06:52 Bidil 20/37.5mg PO 1 each Q8HR NETO Administration Labetalol HCl 10 mg 10/11/19 13:00 10/11/19 13:22 Labetalol IV 10 mg Q4H PRN Administration Hypertension Metoprolol Tartrate 50 mg 10/11/19 10:00 10/14/19 22:30 Metoprolol PO 50 mg BID NETO Administration Ondansetron HCl 4 mg 10/11/19 02:03 Zofran IV Q8H PRN Nausea And Vomiting Sodium Chloride 10 ml 10/11/19 10:00 10/14/19 22:29 Sodium Chloride Flush Syringe 10 Ml IV 10 ml BID NETO Administration Sodium Chloride 10 ml 10/11/19 02:03 Sodium Chloride Flush Syringe 10 Ml IV PRN PRN LINE FLUSH Nutrition/Malnutrition Assess - Dietary Evaluation Nutrition/Malnutrition Findings: Nutrition Notes Start: 10/11/19 13:24 Freq: Status: Active Protocol: Document 10/13/19 12:14 LM (Rec: 10/13/19 12:24 LM [id number]) Nutrition Notes Initial or Follow up Reassessment Current Diagnosis Acute Kidney Injury, Hypertension Other Pertinent Diagnosis dehydration, Afib, AMS Current Diet pureed diet Labs/Tests BUN 100 Cr 3.7 BG 148 Pertinent Medications NaCl at 50ml/hr Height 5 ft 6 in Weight 46.1 kg [place] Body Weight (kg) 64.54 BMI 16.4 Weight Status Underweight Subjective/Other Information Spoke to RN. RN stated she is unable to give information about pt. Pt's diet changed to pureed. Per chart, pt has 0- 25% intakes recordered yesterday in chart. Burn Absent Trauma Absent GI Symptoms Nausea,Vomiting Current % PO Negligible Minimum of two criteria No Energy Intake (non-severe) <75% Estimated Energy Requirement >7 days #1 Nutrition Diagnosis Inadequate oral intake Diagnosis Progress(for reassessment Continues documentation) Is patient on ventilator? No Is Patient Ambulatory and/or Out of Bed No REE-([facility]-confined to bed) 1325.916 Kcal/Kg value to use for calculation 39 Approximate Energy Requirements Using 1798 kcal/Kg Calculation Used for Recommendations Kcal/kg Additional Notes Protein: 37-55g (0.8-1.2g/kg) FluidL 1 ml/kcal or per MD Nutrition Intervention Change Diet Order: Continued pureed or start enteral nutrition if intakes continue to be <50% Add Supplement/Snack (indicate name/kcal Ensure Enlive TID /protein ) Provides kCal: 1,050 Provides Protein (gm) 60 Goal #1 Meet at least 80% of energy and protein needs Anticipated Discharge Needs: cardiac with ONS Follow-Up By: 10/16/19 Additional Comments F/U for PO/ONS intakes, POC
[2019-10-15] MEDS: METOPROLOL TARTRATE 50 MG TAB PO SCH ×3 (09:48→23:03)
[2019-10-15 09:54] LABS: INR 1.32 (0.87-1.13)
[2019-10-15] MEDS: ENOXAPARIN 30 MG/0.3 ML INJ SUB-Q SCH (10:30)
[2019-10-15] MEDS: ASPIRIN EC 81 MG TAB PO SCH (10:30)
--- NOTE | 2019-10-15 12:52 | Progress Note ---
Assessment and Plan Newly diagnosed persistent atrial fibrillation Remains in rate controlled AF Pt has been deemed to be a poor candidate for intermediate project manager anticoagulation given overall frailty and thrombocytopenia Hypertension Dilated Cardiomyopathy, uncertain duration an echo this admission shows atrial enlargement, decreased left ventricular systolic function, ejection fraction 35-40%. Acute renal failure Recommend: Continue current therapy - will continue to pursue rate control strategy for persistent AF Subjective Date of service: 10/15/19 Interval history: No acute events Objective Vital Signs Temp Pulse Resp BP BP Pulse Ox 10/15/19 09:15 97 H 10/15/19 08:19 97.3 F L 65 20 91/56 98 10/15/19 06:45 97.9 F 89 20 116/80 98 10/15/19 01:09 97.6 F 73 18 119/69 96 10/14/19 22:30 71 108/66 10/14/19 22:28 71 108/66 10/14/19 21:07 71 20 108/66 99 10/14/19 20:41 66 10/14/19 16:24 97.7 F 60 20 130/66 98 - Physical Examination General: No Apparent Distress HEENT: Positive: PERRL Neck: Positive: neck supple Cardiac: Positive: irregularly irregular Abdomen: Positive: Soft, Active Bowel Sounds Extremities: Absent: edema - Labs and Meds Coagulation 10/15/19 Range/Units 08:46 PT 16.1 H (12.2-14.9) Sec. INR 1.32 H (0.87-1.13) CBC 10/15/19 Range/Units 05:18 WBC 8.7 (4.5-11.0) K/mm3 RBC 3.93 (3.65-5.03) M/mm3 Hgb 13.2 (11.8-15.2) gm/dl Hct 38.8 (35.5-45.6) % Plt Count 98 L (140-440) K/mm3 Lymph # 0.6 L (1.2-5.4) K/mm3 [place] # 0.5 (0.0-0.8) K/mm3 Eos # 0.1 (0.0-0.4) K/mm3 Baso # 0.0 (0.0-0.1) K/mm3 Comprehensive Metabolic Panel 10/15/19 Range/Units 05:18 Sodium 158 H (137-145) mmol/L Potassium 3.2 L (3.6-5.0) mmol/L Chloride 117.4 H (98-107) mmol/L Carbon Dioxide 20 L (22-30) mmol/L BUN 128 H (9-20) mg/dL Creatinine 3.8 H (0.8-1.5) mg/dL Glucose 120 H (75-100) mg/dL Calcium 8.4 (8.4-10.2) mg/dL - Telemetry EKG Rhythm: Atrial Fibrillation (Ventricular rate in low 90s)
[2019-10-15] MEDS ORDERED: SODIUM BICARBONATE IV SCH (13:00)
[2019-10-15] MEDS ORDERED: SODIUM CHLORIDE 0.45% IV SCH (13:00)
--- NOTE | 2019-10-15 13:04 | Progress Note ---
Assessment and Plan Acute renal failure, possible ischemic ATN from low BP, also possible TTP/HUS Sepsis Afib with RVR Hypotension Thrombocytopenia Cr is slightly better but cont to have rising BUN awaiting hematology evaluation to r/o TMA, LDH was elevated vascular consult requested for vascath placement, HD ordered for clearance IVf changed to D5W with sodium bicarb 50 meq @ 125 cc/h to correct hypernatremia Strict I&O daily weight renally dose meds Jamey Lang MD [phone] Subjective Date of service: 10/15/19 Principal diagnosis: PRIMO Interval history: awake and alert, no family at bedside. Objective - Vital Signs Vital signs: Vital Signs - 12hr 10/15/19 10/15/19 10/15/19 01:09 06:45 08:19 Temperature 97.6 F 97.9 F 97.3 F L Pulse Rate 73 89 65 Respiratory 18 20 20 Rate Blood Pressure 119/69 116/80 91/56 O2 Sat by Pulse 96 98 98 Oximetry 10/15/19 09:15 Temperature Pulse Rate 97 H Respiratory Rate Blood Pressure O2 Sat by Pulse Oximetry - General Appearance General appearance: well-developed, cachectic EENT: ATNC, PERRL Neck: no JVD, no carotid bruit Respiratory: Present: Clear to Ascultation. Absent: Rales, Ronchi Cardiology: regular, S1S2 Gastrointestinal: normoactive bowel sounds Integumentary: no rash Neurologic: no focal deficit Musculoskeletal: other (no edema in BLE) Psychiatric: cooperative - Lab 10/15/19 05:18 10/15/19 05:18 Most recent lab results Calcium 8.4 mg/dL (8.4-10.2) 10/15/19 05:18 Phosphorus 5.10 mg/dL (2.5-4.5) H 10/15/19 05:18 Medications & Allergies - Medications Allergies/Adverse Reactions: Allergies No Known Allergies Allergy (Unverified 10/10/19 21:31) Home Medications: Home Medications Medication Instructions Recorded Confirmed Last Taken Type Metoprolol 10/10/19 Unknown History Active Medications: Generic Name Dose Route Start Last Admin Trade Name Freq PRN Reason Stop Dose Admin Acetaminophen 650 mg 10/11/19 02:03 Tylenol PO Q4H PRN Pain MILD(1-3)/Fever >100.5/ANNE Aspirin 81 mg 10/14/19 10:00 10/14/19 10:50 Halfprin Ec PO 81 mg QDAY NETO Administration Enoxaparin Sodium 30 mg 10/14/19 10:00 10/14/19 11:01 Enoxaparin SUB-Q 30 mg QDAY NETO Administration Hydralazine HCl 5 mg 10/11/19 08:00 Apresoline IV Q30MIN PRN Hypertension Piperacillin Sod/Tazobactam Sod 2.25 gm in 50 mls @ 100 mls/hr 10/13/19 14:00 10/15/19 06:40 Zosyn/Ns 2.25 Gm/50ml IV 10/15/19 23:59 100 mls/hr Q8HR NETO Administration Protocol Sodium Bicarbonate 50 meq/ 1,050 mls @ 125 mls/hr 10/15/19 13:00 Sodium Chloride IV DIRECT NETO Isosorbide Dinitrate/Hydralazine 1 each 10/13/19 14:00 10/15/19 06:52 Bidil 20/37.5mg PO 1 each Q8HR NETO Administration Labetalol HCl 10 mg 10/11/19 13:00 10/11/19 13:22 Labetalol IV 10 mg Q4H PRN Administration Hypertension Metoprolol Tartrate 50 mg 10/11/19 10:00 10/15/19 09:48 Metoprolol PO Not Given BID [facility] Ondansetron HCl 4 mg 10/11/19 02:03 Zofran IV Q8H PRN Nausea And Vomiting Sodium Chloride 10 ml 10/11/19 10:00 10/14/19 22:29 Sodium Chloride Flush Syringe 10 Ml IV 10 ml BID NETO Administration Sodium Chloride 10 ml 10/11/19 02:03 Sodium Chloride Flush Syringe 10 Ml IV PRN PRN LINE FLUSH
--- NOTE | 2019-10-15 14:28 | Consultation ---
History of Present Illness - Reason for Consult Consult date: 10/15/19 SIRS Requesting physician: JELENA ROME - History of Present Illness The patient is an 84-year-old male with hypertension, atrial fibrillation, dementia was brought into the emergency room with nausea, vomiting and decreased oral intake. He was also having fevers at home and his was seemingly unable to take care of him. On admission, he was found to have leukocytosis, lactate elevation, due to SIRS, patient was started on IV Zosyn. Influenza rapid test negative, COVID-19 PCR negative, HIV negative, hepatitis C antibody negative. Hepatitis B surface antigen is reactive. Patient with increasing creatinine, up from 1.4 on admission to 4.1. Nephrology is following, there is some question of TTP/HUS. Patient has remained afebrile throughout hospitalization. Infectious diseases was consulted for additional evaluation. Patient has been on IV Zosyn since admission. Chest x-ray on admission did not show pneumonia. CT abdomen pelvis without contrast showed mild nonspecific inflammation adjacent to the distal aorta, showed gallstones but otherwise no significant abnormality. Review of Systems: Limited, poor historian. Medications and Allergies Allergies Allergy/AdvReac Type Severity Reaction Status Date / Time No Known Allergies Allergy Unverified 10/10/19 21:31 Home Medications Medication Instructions Recorded Confirmed Last Taken Type Metoprolol 10/10/19 Unknown History Active Meds: Active Medications Acetaminophen (Tylenol) 650 mg PO Q4H PRN PRN Reason: Pain MILD(1-3)/Fever >100.5/ANNE Aspirin (Halfprin Ec) 81 mg PO QDAY [facility] Last Admin: 10/14/19 10:50 Dose: 81 mg Documented by: Enoxaparin Sodium (Enoxaparin) 30 mg SUB-Q QDAY [facility] Last Admin: 10/14/19 11:01 Dose: 30 mg Documented by: Hydralazine HCl (Apresoline) 5 mg IV Q30MIN PRN PRN Reason: Hypertension Piperacillin Sod/Tazobactam Sod (Zosyn/Ns 2.25 Gm/50ml) 2.25 gm in 50 mls @ 100 mls/hr IV Q8HR [facility]; Protocol Stop: 10/15/19 23:59 Last Admin: 10/15/19 06:40 Dose: 100 mls/hr Documented by: Sodium Bicarbonate 50 meq/ (Sodium Chloride) 1,050 mls @ 125 mls/hr IV DIRECT [facility] Isosorbide Dinitrate/Hydralazine (Bidil 20/37.5mg) 1 each PO Q8HR [facility] Last Admin: 10/15/19 06:52 Dose: 1 each Documented by: Labetalol HCl (Labetalol) 10 mg IV Q4H PRN PRN Reason: Hypertension Last Admin: 10/11/19 13:22 Dose: 10 mg Documented by: Metoprolol Tartrate (Metoprolol) 50 mg PO BID [facility] Last Admin: 10/15/19 09:48 Dose: Not Given Documented by: Ondansetron HCl (Zofran) 4 mg IV Q8H PRN PRN Reason: Nausea And Vomiting Sodium Chloride (Sodium Chloride Flush Syringe 10 Ml) 10 ml IV BID [facility] Last Admin: 10/14/19 22:29 Dose: 10 ml Documented by: Sodium Chloride (Sodium Chloride Flush Syringe 10 Ml) 10 ml IV PRN PRN PRN Reason: LINE FLUSH Physical Examination - Physical Exam Narrative exam: Physical Exam: Constitutional: Alert. No acute distress Head, Ears, Nose: Normocephalic, atraumatic. External ears, nose normal Eyes: Conjunctivae/corneas clear. No icterus. No ptosis. Neck: Supple, no meningeal signs Cardiovascular: S1, S2 normal. Respiratory: Good air entry, clear to auscultation bilaterally GI: Soft, non-tender; bowel sounds normal. No peritoneal signs Musculoskeletal: No pedal edema, no cyanosis. Skin: No rash or abscess Hem/Lymphatic: No palpable cervical or supraclavicular nodes. No lymphangitis Psych: no agitation Neurological: Awake, alert. - Constitutional Vitals: Vital Signs Temp Pulse Resp BP Pulse Ox 97.7 F 84 20 131/74 99 10/15/19 12:48 10/15/19 12:48 10/15/19 12:48 10/15/19 12:48 10/15/19 12:48 Temperature -Last 24 Hours Temperature 97.7 F Temperature 97.3 F Temperature 97.9 F Temperature 97.6 F Temperature 97.7 F Results - Labs CBC & Chem 7: 10/15/19 05:18 10/15/19 05:18 Labs: Abnormal lab results 10/15/19 10/15/19 10/15/19 Range/Units 05:18 05:18 08:46 MCV 99 H (84-94) fl MCH 34 H (28-32) pg Plt Count 98 L (140-440) K/mm3 Lymph % (Auto) 6.4 L (13.4-35.0) % Lymph # 0.6 L (1.2-5.4) K/mm3 Seg Neutrophils % 86.8 H (40.0-70.0) % PT 16.1 H (12.2-14.9) Sec. INR 1.32 H (0.87-1.13) Sodium 158 H (137-145) mmol/L Potassium 3.2 L (3.6-5.0) mmol/L Chloride 117.4 H (98-107) mmol/L Carbon Dioxide 20 L (22-30) mmol/L BUN 128 H (9-20) mg/dL Creatinine 3.8 H (0.8-1.5) mg/dL Glucose 120 H (75-100) mg/dL Phosphorus 5.10 H (2.5-4.5) mg/dL - Imaging and Cardiology Chest x-ray: report reviewed, image reviewed (no pneumonia seen) Assessment and Plan Cultures: 10/10/2019 blood culture: No growth A/P: 84-year-old male with hypertension, atrial fibrillation, dementia was brought into the emergency room with nausea, vomiting and decreased oral intake. He was also having fevers at home and his was seemingly unable to take care of him: #SIRS: Afebrile. No obvious acute infection identified. CXR without pneumonia. CT abdomen with mild nonspecific inflammation adjacent to the distal aorta. Blood cultures negative, UA without pyuria. Influenza rapid test negative, COVID-19 PCR negative, HIV negative, hepatitis C antibody negative. Hepatitis B surface antigen is reactive. #Chronic hepatitis B: Hepatitis B surface antigen is positive. AST, ALT are not elevated. Hep B PCR ordered. Considering his age, and no ALT elevation or obvious clinical evidence of cirrhosis or hepatic decompensation, doubt salvage determiner Hep B treatment is going to be of much benefit. #Acute kidney injury: Creatinine rising compared to admission. Nephrology following. #Mild thrombocytopenia: fluctuating. Recs: Zosyn discontinued Hep B DNA PCR ordered Iam Dowell MD, FACP [facility] C: [phone] O: [phone] F: [phone]
[2019-10-15] MEDS ORDERED: SODIUM CHLORIDE 0.9% 100 ML IV PRN (20:17)
[2019-10-15 21:04] LABS: Hepatitis B Surface Antigen Reactive (Negative); Hepatitis C Virus Antibody Non-Reactive (NonReactive)
[2019-10-16] MEDS: ISOSORB DINIT/HYDRALAZINE 20-37.5MG TAB PO SCH ×3 (05:20→22:00)
[2019-10-16 06:17] LABS: Basophils % (Auto) 0.1 % (0.0-1.8); Eosinophils # (Auto) 0.1 K/mm3 (0.0-0.4); Eosinophils % (Auto) 1.5 % (0.0-4.3); Hematocrit 37.7 % (35.5-45.6); Hemoglobin 13.1 gm/dl (11.8-15.2); Lymphocytes # (Auto) 0.7 K/mm3 (1.2-5.4); Lymphocytes % (Auto) 8.3 % (13.4-35.0); Mean Corpuscular HGB Conc 35 % (32-34); Mean Corpuscular Volume 100 fl (84-94); Monocytes # (Auto) 0.6 K/mm3 (0.0-0.8); Monocytes % (Auto) 7.8 % (0.0-7.3); Red Blood Count 3.76 M/mm3 (3.65-5.03); Red Cell Distribution Width 14.5 % (13.2-15.2)
[2019-10-16 06:19] LABS: Platelet Count 99 K/mm3 (140-440)
[2019-10-16] MEDS: ASPIRIN EC 81 MG TAB PO SCH (10:00)
[2019-10-16] MEDS: ENOXAPARIN 30 MG/0.3 ML INJ SUB-Q SCH (10:00)
[2019-10-16] MEDS: METOPROLOL TARTRATE 50 MG TAB PO SCH ×3 (10:00→22:01)
--- NOTE | 2019-10-16 10:05 | Progress Note ---
Assessment and Plan Atrial fibrillation, persistent on metoprolol for rate control Pt has been deemed to be a poor candidate for intermediate anticoagulation given overall frailty and thrombocytopenia Acute renal failure Hypertension Dilated Cardiomyopathy, uncertain duration an echo this admission shows atrial enlargement, decreased left ventricular systolic function, ejection fraction 35-40%. Continue medical therapy for dilated cardiomyopathy and rate controlling agents for atrial fibrillation that persists. Otherwise, conservative cardiac management. Subjective Date of service: 10/16/19 Principal diagnosis: PRIMO Interval history: Patient is resting in bed comfortably. Objective Vital Signs Temp Pulse Resp BP Pulse Ox 10/16/19 07:44 98.0 F 93 H 18 177/96 96 10/16/19 05:20 88 160/84 10/16/19 04:14 97.9 F 88 20 160/84 96 10/15/19 23:00 18 97 10/15/19 21:58 97.6 F 69 18 136/68 97 10/15/19 16:56 98.1 F 68 20 130/85 97 10/15/19 12:48 97.7 F 84 20 131/74 99 10/15/19 11:00 96 - Physical Examination General: No Apparent Distress HEENT: Positive: PERRL Cardiac: Positive: irregularly irregular Extremities: Absent: edema - Labs and Meds CBC 10/16/19 Range/Units 05:50 WBC 7.8 (4.5-11.0) K/mm3 RBC 3.76 (3.65-5.03) M/mm3 Hgb 13.1 (11.8-15.2) gm/dl Hct 37.7 (35.5-45.6) % Plt Count 99 L (140-440) K/mm3 Lymph # 0.7 L (1.2-5.4) K/mm3 [place] # 0.6 (0.0-0.8) K/mm3 Eos # 0.1 (0.0-0.4) K/mm3 Baso # 0.0 (0.0-0.1) K/mm3 Comprehensive Metabolic Panel 10/16/19 Range/Units 05:50 Sodium 161 H* (137-145) mmol/L Potassium 3.3 L (3.6-5.0) mmol/L Chloride 121.2 H (98-107) mmol/L Carbon Dioxide 22 (22-30) mmol/L BUN 134 H (9-20) mg/dL Creatinine 4.1 H (0.8-1.5) mg/dL Glucose 126 H (75-100) mg/dL Calcium 8.0 L (8.4-10.2) mg/dL
--- NOTE | 2019-10-16 10:34 | Progress Note ---
Assessment and Plan Assessment and plan: SIRS No obvious infection ID following A. fib with RVR, status post conversion DC heparin drip, patient thrombocytopenic cardiology following Acute metabolic encephalopathy altered mental status,confusion Hypertension uncontrolled Start IV hydralazine, Nitropaste, monitor PRIMO due to ATN worsening Nephrology followinbg Hypernatremia Nephrology following Hypokalemia replace Dehydration Start gentle IV fluids Thrombocytopenia discussed with nephrology consult hematology registered nurse hh case manager for possible placement DVT prophylaxis with SCDs only because of low platelets 10/15/19 patient with acute kidney injury due to ATN. Slight improvement. Cr 3.[address] Oliveira, hematology for low plaletels but he says he does not work here anymore. called and updated daughter on [phone] 10/16/19 patient presented with alterd mental status,nausea,vomiting. Found to have PRIMO due to ATN, thrombocytopenia. Cr worsening. Discussed with Nephrology yesterday. Plan to initiate dialysis if he gets worse. labs show Syphilis IgG antibody positive. ID to evaluate. History Interval history: Patient with failure to thrive with afib,presented with nausea, vomiting altered mental status Hospitalist Physical - Physical exam Narrative exam: GEN: Not in acute distress, malnourished HEENT: Normocephalic, atraumatic, Neck: supple, No JVD Lungs: Clear to auscultation bilaterally, heart;S1 and S2 reg, no murmurs, rubs or gallop Abd:soft, non tender, non distended, normal bowel sounds, Ext: No edema, no clubbing, no cyanosis, Neuro: Awake,alert, confused - Constitutional Vitals: Temp Pulse Resp BP Pulse Ox 98.0 F 93 H 18 177/96 96 10/16/19 07:44 10/16/19 07:44 10/16/19 07:44 10/16/19 07:44 10/16/19 07:44 General appearance: Present: no acute distress Results - Labs CBC & Chem 7: 10/16/19 05:50 10/16/19 05:50 Labs: Laboratory Last Values WBC 7.8 K/mm3 (4.5-11.0) 10/16/19 05:50 RBC 3.76 M/mm3 (3.65-5.03) 10/16/19 05:50 Hgb 13.1 gm/dl (11.8-15.2) 10/16/19 05:50 Hct 37.7 % (35.5-45.6) 10/16/19 05:50 MCV 100 fl (84-94) H 10/16/19 05:50 MCH 35 pg (28-32) H 10/16/19 05:50 MCHC 35 % (32-34) H 10/16/19 05:50 RDW 14.5 % (13.2-15.2) 10/16/19 05:50 Plt Count 99 K/mm3 (140-440) L 10/16/19 05:50 Lymph % (Auto) 8.3 % (13.4-35.0) L 10/16/19 05:50 [place] % (Auto) 7.8 % (0.0-7.3) H 10/16/19 05:50 Eos % (Auto) 1.5 % (0.0-4.3) 10/16/19 05:50 Baso % (Auto) 0.1 % (0.0-1.8) 10/16/19 05:50 Lymph # 0.7 K/mm3 (1.2-5.4) L 10/16/19 05:50 [place] # 0.6 K/mm3 (0.0-0.8) 10/16/19 05:50 Eos # 0.1 K/mm3 (0.0-0.4) 10/16/19 05:50 Baso # 0.0 K/mm3 (0.0-0.1) 10/16/19 05:50 Add Manual Diff Complete 10/11/19 04:42 Total Counted 100 10/11/19 04:42 Seg Neutrophils % 82.3 % (40.0-70.0) H 10/16/19 05:50 Seg Neuts % (Manual) 93.0 % (40.0-70.0) H 10/11/19 04:42 Band Neutrophils % 1.0 % 10/11/19 04:42 Lymphocytes % (Manual) 2.0 % (13.4-35.0) L 10/11/19 04:42 Reactive Lymphs % (Man) 0 % 10/11/19 04:42 Monocytes % (Manual) 4.0 % (0.0-7.3) 10/11/19 04:42 Eosinophils % (Manual) 0 % (0.0-4.3) 10/11/19 04:42 Basophils % (Manual) 0 % (0.0-1.8) 10/11/19 04:42 Metamyelocytes % 0 % 10/11/19 04:42 Myelocytes % 0 % 10/11/19 04:42 Promyelocytes % 0 % 10/11/19 04:42 Blast Cells % 0 % 10/11/19 04:42 Nucleated RBC % Not Reportable 10/11/19 04:42 Seg Neutrophils # 6.5 K/mm3 (1.8-7.7) 10/16/19 05:50 Seg Neutrophils # Man 14.8 K/mm3 (1.8-7.7) H 10/11/19 04:42 Band Neutrophils # 0.2 K/mm3 10/11/19 04:42 Lymphocytes # (Manual) 0.3 K/mm3 (1.2-5.4) L 10/11/19 04:42 Abs React Lymphs (Man) 0.0 K/mm3 10/11/19 04:42 Monocytes # (Manual) 0.6 K/mm3 (0.0-0.8) 10/11/19 04:42 Eosinophils # (Manual) 0.0 K/mm3 (0.0-0.4) 10/11/19 04:42 Basophils # (Manual) 0.0 K/mm3 (0.0-0.1) 10/11/19 04:42 Metamyelocytes # 0.0 K/mm3 10/11/19 04:42 Myelocytes # 0.0 K/mm3 10/11/19 04:42 Promyelocytes # 0.0 K/mm3 10/11/19 04:42 Blast Cells # 0.0 K/mm3 10/11/19 04:42 WBC Morphology Not Reportable 10/11/19 04:42 Hypersegmented Neuts Not Reportable 10/11/19 04:42 Hyposegmented Neuts Not Reportable 10/11/19 04:42 Hypogranular Neuts Not Reportable 10/11/19 04:42 Smudge Cells Not Reportable 10/11/19 04:42 Toxic Granulation Not Reportable 10/11/19 04:42 Toxic Vacuolation Not Reportable 10/11/19 04:42 Dohle Bodies Not Reportable 10/11/19 04:42 Pelger-Huet Anomaly Not Reportable 10/11/19 04:42 Glenys Rods Not Reportable 10/11/19 04:42 Platelet Estimate Consistent w auto 10/11/19 04:42 Clumped Platelets Not Reportable 10/11/19 04:42 Plt Clumps, EDTA Not Reportable 10/11/19 04:42 Large Platelets Not Reportable 10/11/19 04:42 Giant Platelets Not Reportable 10/11/19 04:42 Platelet Satelliting Not Reportable 10/11/19 04:42 Plt Morphology Comment Not Reportable 10/11/19 04:42 RBC Morphology Not Reportable 10/11/19 04:42 Dimorphic RBCs Not Reportable 10/11/19 04:42 Polychromasia Not Reportable 10/11/19 04:42 Hypochromasia Not Reportable 10/11/19 04:42 Poikilocytosis Not Reportable 10/11/19 04:42 Anisocytosis Not Reportable 10/11/19 04:42 Microcytosis Not Reportable 10/11/19 04:42 Macrocytosis Not Reportable 10/11/19 04:42 Spherocytes Not Reportable 10/11/19 04:42 Pappenheimer Bodies Not Reportable 10/11/19 04:42 Sickle Cells Not Reportable 10/11/19 04:42 Target Cells Not Reportable 10/11/19 04:42 Tear Drop Cells Not Reportable 10/11/19 04:42 Ovalocytes Not Reportable 10/11/19 04:42 Helmet Cells Not Reportable 10/11/19 04:42 Luna-Harrah Bodies Not Reportable 10/11/19 04:42 Larsen Rings Not Reportable 10/11/19 04:42 Paula Cells Not Reportable 10/11/19 04:42 Bite Cells Not Reportable 10/11/19 04:42 Crenated Cell Not Reportable 10/11/19 04:42 Elliptocytes Rare 10/11/19 04:42 Acanthocytes (Spur) Not Reportable 10/11/19 04:42 Rouleaux Not Reportable 10/11/19 04:42 Hemoglobin C Crystals Not Reportable 10/11/19 04:42 Schistocytes Not Reportable 10/11/19 04:42 Malaria parasites Not Reportable 10/11/19 04:42 Robin Bodies Not Reportable 10/11/19 04:42 Hem Pathologist Commnt No 10/11/19 04:42 PT 16.1 Sec. (12.2-14.9) H 10/15/19 08:46 INR 1.32 (0.87-1.13) H 10/15/19 08:46 APTT 32.9 Sec. (24.2-36.6) 10/11/19 01:13 Sodium 161 mmol/L (137-145) H* 10/16/19 05:50 Potassium 3.3 mmol/L (3.6-5.0) L 10/16/19 05:50 Chloride 121.2 mmol/L (98-107) H 10/16/19 05:50 Carbon Dioxide 22 mmol/L (22-30) 10/16/19 05:50 Anion Gap 21 mmol/L 10/16/19 05:50 BUN 134 mg/dL (9-20) H 10/16/19 05:50 Creatinine 4.1 mg/dL (0.8-1.5) H 10/16/19 05:50 Estimated GFR 14 ml/min 10/16/19 05:50 BUN/Creatinine Ratio 33 % 10/16/19 05:50 Glucose 126 mg/dL (75-100) H 10/16/19 05:50 POC Glucose 139 (70-105) H 10/13/19 18:18 Lactic Acid 3.20 mmol/L (0.7-2.0) H* 10/10/19 23:04 Calcium 8.0 mg/dL (8.4-10.2) L 10/16/19 05:50 Phosphorus 5.80 mg/dL (2.5-4.5) H 10/16/19 05:50 Total Bilirubin 2.50 mg/dL (0.1-1.2) H 10/10/19 21:40 AST 39 units/L (5-40) 10/10/19 21:40 ALT 22 units/L (7-56) 10/10/19 21:40 Alkaline Phosphatase 102 units/L (35-129) 10/10/19 21:40 Ammonia 54.0 umol/L (25-60) 10/10/19 21:40 Lactate Dehydrogenase 331 units/L (91-180) H 10/14/19 10:56 Total Creatine Kinase 563 units/L (55-170) H 10/14/19 10:56 Troponin T 0.024 ng/mL (0.00-0.029) 10/10/19 21:40 Total Protein 7.6 g/dL (6.3-8.2) 10/10/19 21:40 Albumin 4.1 g/dL (3.9-5) 10/10/19 21:40 Albumin/Globulin Ratio 1.2 % 10/10/19 21:40 TSH 2.550 mlU/mL (0.270-4.200) 10/10/19 21:40 Urine Color Yellow (Yellow) 10/10/19 23:18 Urine Turbidity Clear (Clear) 10/10/19 23:18 Urine pH 6.0 (5.0-7.0) 10/10/19 23:18 Ur Specific [place] 1.015 (1.003-1.030) 10/10/19 23:18 Urine Protein 300 mg/dl mg/dL (Negative) 10/10/19 23:18 Urine Glucose (UA) 50 mg/dL (Negative) 10/10/19 23:18 Urine Ketones Neg mg/dL (Negative) 10/10/19 23:18 Urine Blood Sm (Negative) 10/10/19 23:18 Urine Nitrite Neg (Negative) 10/10/19 23:18 Urine Bilirubin Neg (Negative) 10/10/19 23:18 Urine Urobilinogen < 2.0 mg/dL (<2.0) 10/10/19 23:18 Ur Leukocyte Esterase Neg (Negative) 10/10/19 23:18 Urine WBC (Auto) 1.0 /HPF (0.0-6.0) 10/10/19 23:18 Urine RBC (Auto) 9.0 /HPF (0.0-6.0) 10/10/19 23:18 U Epithel Cells (Auto) < 1.0 /HPF (0-13.0) 10/10/19 23:18 Urine Bacteria (Auto) 1+ /HPF (Negative) 10/10/19 23:18 Hyaline Casts 6 /LPF 10/10/19 23:18 Urine Mucus Few /HPF 10/10/19 23:18 Syphilis IgG Antibody Reactive (NonReactive) A 10/15/19 14:53 Coronavirus (PCR) Negative (Negative) 10/11/19 11:14 Hepatitis A IgM Ab Non-reactive (NonReactive) 10/15/19 20:27 Hep Bs Antigen Reactive (Negative) 10/15/19 20:27 Hep B Core IgM Ab Non-reactive (NonReactive) 10/15/19 20:27 Hepatitis C Antibody Non-reactive (NonReactive) 10/15/19 20:27 HIV 1&2 Antibody Rapid Non react (Non React) 10/14/19 10:56 HIV P24 Antigen Non react (Non React) 10/14/19 10:56 Influenza A (Rapid) Negative (Negative) 10/10/19 22:25 Influenza B (Rapid) Negative (Negative) 10/10/19 22:25 Schistocytes Smear None seen 10/14/19 10:56 Microbiology: Microbiology 10/10/19 21:40 Peripheral/Venous Blood Culture - Final NO GROWTH AFTER 5 DAYS 10/10/19 21:40 Peripheral/Venous Blood Culture - Final NO GROWTH AFTER 5 DAYS - Diagnostic Impressions Diagnostic Impressions: Echocardiogram 10/12/19 09:05 Transthoracic Echocardiogram Indication: Afib, HTN BP: 135/78 HR: 115 Conclusions *Global left ventricular systolic function is moderately decreased. *The estimated ejection fraction is 35-40%, but optimal assessment is limited by irregular heart rate. *Mild concentric left ventricular hypertrophy is observed. *The left and right atria are both severely dilated. *There is mild aortic regurgitation. *There is trace-mild mitral regurgitation. *There is moderate tricuspid regurgitation. *There is evidence of mild pulmonary hypertension. *The right ventricular systolic pressure is calculated at 28 mmHg. Findings Left Ventricle: The left ventricular chamber size is mildly dilated. Mild concentric left ventricular hypertrophy is observed. Global left ventricular systolic function is moderately decreased. The estimated ejection fraction is 35-40%. Left Atrium: The left atrium is severely dilated. Right Ventricle: The right ventricle is slightly dilated. Right Atrium: The right atrium is moderate to severely dilated. Aortic Valve: The aortic valve is trileaflet. The aortic valve leaflets are moderately thickened. There is mild aortic regurgitation. There is no evidence of aortic stenosis. Mitral Valve: The mitral valve leaflets are mildly thickened. There is trace of mitral regurgitation. There is no evidence of mitral stenosis. Tricuspid Valve: There is moderate tricuspid regurgitation. The right ventricular systolic pressure is calculated at 28 mmHg. There is evidence of mild pulmonary hypertension. Pulmonic Valve: There is mild pulmonic regurgitation. Pericardium: There is no pericardial effusion. Aorta: There is no dilatation of the aortic root. Venous: The inferior vena cava appears normal in size. Measurements Chambers 2D Name Value Normal Range IVSd (2D) 1.27 cm (0.6 - 1.1) LVPWd (2D) 1.06 cm (0.6 - 1.1) LVIDd (2D) 4.06 cm (3.7 - 5.6) LVIDs (2D) 2.91 cm (2 - 3.8) LV FS (2D) 28.16 % - EF Teichholz (2D) 54.96 % - Ao root diameter (2D) 2.83 cm (2 - 3.7) Volumes/Mass Name Value Normal Range LA ESV SP 4CH (A/L) 74.63 ml - LA ESV SP 2CH (A/L) 67.89 ml - LA ESV BP (A/L) 81.32 ml - LA ESV BP (A/L) index 54.21 ml/m2 - LA ESV SP 4CH (MOD) 65.06 ml - LA ESV SP 2CH (MOD) 65.08 ml - LA ESV BP (MOD) 74.22 ml - LA ESV BP (MOD) index 49.48 ml/m2 - LV EDV SP 4CH (MOD) 46.88 ml - LV ESV SP 4CH (MOD) 14.91 ml - EF SP 4CH (MOD) 68.19 % - LV EDV SP 2CH (MOD) 26.53 ml - LV ESV SP 2CH (MOD) 11.71 ml - EF SP 2CH (MOD) 55.86 % - LV EDV BP 37.95 ml - LV ESV BP 13.85 ml - BP EF (MOD) 63.51 % - Diastolic/Systolic Function Name Value Normal Range MV E-wave Vmax 0.8 m/sec - MV deceleration time 145.29 msec - Aortic Valve Name Value Normal Range AV Vmax 0.79 m/sec - AV VTI 9.87 cm - AV peak gradient 2.5 mmHg - AV mean gradient 0.94 mmHg - LVOT diameter 2.12 cm - LVOT Vmax 0.69 m/sec - LVOT VTI 12.18 cm - LVOT peak gradient 1.93 mmHg - LVOT mean gradient 1.04 mmHg - SV LVOT 42.84 ml - YAMILA (continuity Vmax) 3.08 cm2 - YAMILA (continuity VTI) 4.34 cm2 - AR PHT 498.2 msec - AR peak gradient 55.86 mmHg - Tricuspid Valve Name Value Normal Range TR Vmax 2.52 m/sec - TR peak gradient 25.41 mmHg - RAP 3 mmHg - RVSP 28 mmHg - Pulmonic Valve/Qp:Qs Name Value Normal Range PV Vmax 0.74 m/sec - PV VTI 10.83 cm - PV peak gradient 2.2 mmHg - PV mean gradient 1.08 mmHg - IL end-diastolic Vmax 1.28 m/sec - RVOT Vmax 0.01 m/sec - RVOT VTI 11.04 cm - RVOT peak gradient 2.38 mmHg - Miranda/IV: Voiding Method Diaper IV Catheter Type [Left Forearm Peripheral IV ] IV Catheter Type [Right INT / Saline Lock Forearm] Active Medications - Current Medications Current Medications: Generic Name Dose Route Start Last Admin Trade Name Freq PRN Reason Stop Dose Admin Acetaminophen 650 mg 10/11/19 02:03 Tylenol PO Q4H PRN Pain MILD(1-3)/Fever >100.5/ANNE Aspirin 81 mg 10/14/19 10:00 10/15/19 10:30 Halfprin Ec PO 81 mg QDAY NETO Administration Enoxaparin Sodium 30 mg 10/14/19 10:00 10/15/19 10:30 Enoxaparin SUB-Q 30 mg QDAY NETO Administration Hydralazine HCl 5 mg 10/11/19 08:00 Apresoline IV Q30MIN PRN Hypertension Sodium Chloride 100 mls @ 999 mls/hr 10/15/19 20:17 Nacl 0.9% IV EMILIE PRN Hypotension Dextrose 1,000 mls @ 125 mls/hr 10/16/19 10:00 D5w IV DIRECT NETO Isosorbide Dinitrate/Hydralazine 1 each 10/13/19 14:00 10/16/19 05:20 Bidil 20/37.5mg PO Not Given Q8HR NETO Labetalol HCl 10 mg 10/11/19 13:00 10/11/19 13:22 Labetalol IV 10 mg Q4H PRN Administration Hypertension Metoprolol Tartrate 50 mg 10/11/19 10:00 10/15/19 23:03 Metoprolol PO Not Given BID NETO Ondansetron HCl 4 mg 10/11/19 02:03 Zofran IV Q8H PRN Nausea And Vomiting Sodium Chloride 10 ml 10/11/19 10:00 10/15/19 22:54 Sodium Chloride Flush Syringe 10 Ml IV 10 ml BID NETO Administration Sodium Chloride 10 ml 10/11/19 02:03 Sodium Chloride Flush Syringe 10 Ml IV PRN PRN LINE FLUSH Nutrition/Malnutrition Assess - Dietary Evaluation Nutrition/Malnutrition Findings: Nutrition Notes Start: 10/11/19 13:24 Freq: Status: Active Protocol: Document 10/13/19 12:14 LM (Rec: 10/13/19 12:24 LM [id number]) Nutrition Notes Initial or Follow up Reassessment Current Diagnosis Acute Kidney Injury, Hypertension Other Pertinent Diagnosis dehydration, Afib, AMS Current Diet pureed diet Labs/Tests BUN 100 Cr 3.7 BG 148 Pertinent Medications NaCl at 50ml/hr Height 5 ft 6 in Weight 46.1 kg [place] Body Weight (kg) 64.54 BMI 16.4 Weight Status Underweight Subjective/Other Information Spoke to RN. RN stated she is unable to give information about pt. Pt's diet changed to pureed. Per chart, pt has 0- 25% intakes recordered yesterday in chart. Burn Absent Trauma Absent GI Symptoms Nausea,Vomiting Current % PO Negligible Minimum of two criteria No Energy Intake (non-severe) <75% Estimated Energy Requirement >7 days #1 Nutrition Diagnosis Inadequate oral intake Diagnosis Progress(for reassessment Continues documentation) Is patient on ventilator? No Is Patient Ambulatory and/or Out of Bed No REE-([facility]-confined to bed) 1325.916 Kcal/Kg value to use for calculation 39 Approximate Energy Requirements Using 1798 kcal/Kg Calculation Used for Recommendations Kcal/kg Additional Notes Protein: 37-55g (0.8-1.2g/kg) FluidL 1 ml/kcal or per MD Nutrition Intervention Change Diet Order: Continued pureed or start enteral nutrition if intakes continue to be <50% Add Supplement/Snack (indicate name/kcal Ensure Enlive TID /protein ) Provides kCal: 1,050 Provides Protein (gm) 60 Goal #1 Meet at least 80% of energy and protein needs Anticipated Discharge Needs: cardiac with ONS Follow-Up By: 10/16/19 Additional Comments F/U for PO/ONS intakes, POC
[2019-10-16] MEDS ORDERED: LIDOCAINE (2%) 20 MG/1 ML VIAL 20 ML MDV INFILTRATI ONE (10:57)
[2019-10-16] MEDS ORDERED: HEPARIN 10,000 UNITS/10 ML VIAL ONE (10:57)
[2019-10-16] MEDS ORDERED: HEPARIN/NS 5000 UNIT/500ML 500 ML IR ONE (10:57)
[2019-10-16] MEDS ORDERED: MIDAZOLAM 2 MG/2 ML INJ ONE (10:58)
[2019-10-16] MEDS ORDERED: fentaNYL 100 MCG/2 ML INJ ONE (10:58)
[2019-10-16] MEDS ORDERED: hydrALAZINE 20 MG/1 ML INJ ONE (11:23)
--- NOTE | 2019-10-16 11:34 | Post Operative Note ---
Pre-op diagnosis: Acute Renal Failure Post-op diagnosis: same Procedure: 1. Ultrasound access of right internal jugular vein 2. Right IJ Vascath Insertion 3. Monitored Conscious Sedation for 15 minutes Anesthesia: MAC, local Surgeon: LAVELL CUELLAR Estimated blood loss: minimal Pathology: none Condition: stable Disposition: floor
--- NOTE | 2019-10-16 11:58 | Progress Note ---
Assessment and Plan Assessment: Acute renal failure, possible ischemic ATN from low BP, also possible TTP/HUS Sepsis Afib with RVR Hypotension Thrombocytopenia Hypokalemia Plan: Renal labs reviewed. Serum creatinine antione to 4.1 today with a rising BUN level of 134, yesterday's serum creatinine was 3.8 and BUN was 128 Patient has underwent vasc cath placement earlier this morning Hemodialysis scheduled to be done today, increase potassium bath to 3.5K Awaiting hematology evaluation to r/o TMA, LDH was elevated ARABELLA, ANCA, SPEP, C3, C4, Anti-GBM, SPEP, urine eosinophils-pending Hypernatremia-Sodium antione to 161 this morning. Patient was not receiving D5W with NaHCO3 that was ordered yesterday as prescribed. Asked nurse to start D5W@125 ml/hr as ordered today Recheck sodium level at 1800 today Goal correction no more than 8-10 mmol/24hrs Strict I&O monitoring Obtain daily weights Renally dose medications Avoid nephrotoxic agents Monitor electrolytes and renal function closely Subjective Date of service: 10/16/19 Principal diagnosis: PRIMO Interval history: Patient seen lying in bed. Undergoing HD at bedside. Objective - Vital Signs Vital signs: Vital Signs - 12hr 10/16/19 10/16/19 10/16/19 04:14 05:20 07:44 Temperature 97.9 F 98.0 F Pulse Rate 88 88 93 H Respiratory 20 18 Rate Blood Pressure 160/84 160/84 177/96 O2 Sat by Pulse 96 96 Oximetry - General Appearance General appearance: well-developed, fatigue EENT: ATNC, PERRL Neck: no JVD, supple Respiratory: Present: Decreased Breath Sounds Cardiology: S1S2 Gastrointestinal: normoactive bowel sounds Integumentary: warm and dry Neurologic: other (Resting) Musculoskeletal: other (No edema) - Lab 10/16/19 05:50 10/16/19 05:50 Most recent lab results Calcium 8.0 mg/dL (8.4-10.2) L 10/16/19 05:50 Phosphorus 5.80 mg/dL (2.5-4.5) H 10/16/19 05:50 Medications & Allergies - Medications Allergies/Adverse Reactions: Allergies No Known Allergies Allergy (Unverified 10/10/19 21:31) Home Medications: Home Medications Medication Instructions Recorded Confirmed Last Taken Type Metoprolol 10/10/19 Unknown History Active Medications: Generic Name Dose Route Start Last Admin Trade Name Freq PRN Reason Stop Dose Admin Acetaminophen 650 mg 10/11/19 02:03 Tylenol PO Q4H PRN Pain MILD(1-3)/Fever >100.5/ANNE Aspirin 81 mg 10/14/19 10:00 10/15/19 10:30 Halfprin Ec PO 81 mg QDAY NETO Administration Enoxaparin Sodium 30 mg 10/14/19 10:00 10/15/19 10:30 Enoxaparin SUB-Q 30 mg QDAY NETO Administration Hydralazine HCl 5 mg 10/11/19 08:00 Apresoline IV Q30MIN PRN Hypertension Sodium Chloride 100 mls @ 999 mls/hr 10/15/19 20:17 Nacl 0.9% IV EMILIE PRN Hypotension Dextrose 1,000 mls @ 125 mls/hr 10/16/19 10:00 D5w IV DIRECT NETO Isosorbide Dinitrate/Hydralazine 1 each 10/13/19 14:00 10/16/19 05:20 Bidil 20/37.5mg PO Not Given Q8HR NETO Labetalol HCl 10 mg 10/11/19 13:00 10/11/19 13:22 Labetalol IV 10 mg Q4H PRN Administration Hypertension Metoprolol Tartrate 50 mg 10/11/19 10:00 10/15/19 23:03 Metoprolol PO Not Given BID NETO Ondansetron HCl 4 mg 10/11/19 02:03 Zofran IV Q8H PRN Nausea And Vomiting Sodium Chloride 10 ml 10/11/19 10:00 10/15/19 22:54 Sodium Chloride Flush Syringe 10 Ml IV 10 ml BID NETO Administration Sodium Chloride 10 ml 10/11/19 02:03 Sodium Chloride Flush Syringe 10 Ml IV PRN PRN LINE FLUSH
[2019-10-16] MEDS: DEXTROSE 5% IN WATER 1,000 ML IV SCH (12:17)
--- NOTE | 2019-10-16 12:19 | Operative Report ---
STAFF SURGEON: Dr. Luis Bustamante. PREOPERATIVE DIAGNOSIS: Acute renal failure. POSTOPERATIVE DIAGNOSIS: Acute renal failure. PROCEDURE PERFORMED: 1. Ultrasound access of the right internal jugular vein. 2. Right IJ Vas-Cath insertion. 3. Monitor conscious sedation for 15 minutes. COMPLICATIONS: None. ESTIMATED BLOOD LOSS: Less than 10 mL. ANESTHESIA: Local MAC. INDICATIONS FOR PROCEDURE: This is an 84-year-old gentleman who is currently hospitalized with failure to thrive and acute renal failure, needing initiation of dialysis. Therefore, vascular consultation was obtained. The patient's family was explained the risks, benefits and alternatives of procedure, expressed understanding and wished to proceed. DESCRIPTION OF PROCEDURE: After appropriate consent was obtained, the patient was brought back to the laboratory associate, placed on the table in supine position. The right neck and chest were prepped and draped in the usual sterile fashion with ChloraPrep. Appropriate time-out performed indicating correct patient, procedure, and site of procedure. I then began the intervention by obtaining percutaneous access of the right internal jugular vein using micropuncture technique under ultrasound guidance. Once we obtained access, needle was exchanged for a micropuncture sheath using Seldinger technique. We then placed a stiff J wire into the inferior vena cava. The MicroSheath was removed. The access site was sealed with dilator appropriately and then a 15 cm precurved Vas-Cath was then placed over the wire with the tip of the catheter at the SVC right atrial junction. The wire was removed. Both lumens sania blood appropriately, were flushed with heparinized saline. Appropriate amount of heparin was then placed in each port. Catheter was then sutured in place with 3-0 Ethilon suture. Appropriate dressing was placed. The patient tolerated the procedure well, emerged from the conscious sedation and sent to recovery in stable condition. JOB# [id number] N/ELODIA
--- NOTE | 2019-10-16 15:52 | Progress Note ---
Assessment and Plan Cultures: 10/10/2019 blood culture: No growth A/P: 84-year-old male with hypertension, atrial fibrillation, dementia was brought into the emergency room with nausea, vomiting and decreased oral intake. He was also having fevers at home and his was seemingly unable to take care of him: #SIRS: Afebrile. No obvious acute infection identified. CXR without pneumonia. CT abdomen with mild nonspecific inflammation adjacent to the distal aorta. Blood cultures negative, UA without pyuria. Influenza rapid test negative, COVID-19 PCR negative, HIV negative, hepatitis C antibody negative. Hepatitis B surface antigen is reactive. #Acute encephalopathy: likely due to high sodium #Chronic hepatitis B: Hepatitis B surface antigen is positive. AST, ALT are not elevated. Hep B PCR ordered. Considering his age, and no ALT elevation or obvious clinical evidence of cirrhosis or hepatic decompensation, doubt longterm Hep B treatment is going to be of much benefit. #Acute kidney injury: Creatinine rising compared to admission. Nephrology following. #Mild thrombocytopenia: fluctuating. #Afib with RPR #Hypernatremia Recs: Hep B DNA PCR ordered f/u RPR with titer to determine active syphilis. Noted positive syphilis IgG indicating previous or current infection Consider brain MRI If menta status no better, consider LP Will follow. Darlene Shields MD Infectious Diseases Channel Program Manager [facility] ([facility]) M [phone] O [phone] Subjective Date of service: 10/16/19 Principal diagnosis: PRIMO Interval history: Somnolent not following commands no fever Objective - Exam Narrative Exam: General appearance: somnolent in NAD Eyes: anicteric sclerae, moist conjunctivae; no lid-lag; PERRLA HENT: Atraumatic; oropharynx limited Lungs: CTA CV: RRR no murmur Abdomen: Soft, non-tender Extremities: no edema, no cyanosis Skin: No rash. Psych: somnolent Neuro: somnolent - Constitutional Vitals: Vital Signs Temp Pulse Resp BP Pulse Ox 96.0 F L 81 18 162/91 99 10/16/19 11:56 10/16/19 11:56 10/16/19 11:56 10/16/19 11:56 10/16/19 11:56 Temperature -Last 24 Hours Temperature 96.0 F Temperature 98.0 F Temperature 97.9 F Temperature 97.6 F Temperature 98.1 F - Labs CBC & Chem 7: 10/16/19 05:50 10/16/19 05:50 Labs: Abnormal lab results 10/16/19 10/16/19 Range/Units 05:50 05:50 MCV 100 H (84-94) fl MCH 35 H (28-32) pg MCHC 35 H (32-34) % Plt Count 99 L (140-440) K/mm3 Lymph % (Auto) 8.3 L (13.4-35.0) % Desha % (Auto) 7.8 H (0.0-7.3) % Lymph # 0.7 L (1.2-5.4) K/mm3 Seg Neutrophils % 82.3 H (40.0-70.0) % Sodium 161 H* (137-145) mmol/L Potassium 3.3 L (3.6-5.0) mmol/L Chloride 121.2 H (98-107) mmol/L BUN 134 H (9-20) mg/dL Creatinine 4.1 H (0.8-1.5) mg/dL Glucose 126 H (75-100) mg/dL Calcium 8.0 L (8.4-10.2) mg/dL Phosphorus 5.80 H (2.5-4.5) mg/dL
[2019-10-16] MEDS ORDERED: SODIUM CHLORIDE 0.9% 1000 ML 2,000 ML ONE (17:16)
[2019-10-17] MEDS: DEXTROSE 5% IN WATER 1,000 ML IV SCH ×3 (03:29→22:17)
[2019-10-17] MEDS: ISOSORB DINIT/HYDRALAZINE 20-37.5MG TAB PO SCH ×3 (05:43→22:19)
[2019-10-17 05:45] LABS: Basophils % (Auto) 0.2 % (0.0-1.8); Eosinophils # (Auto) 0.1 K/mm3 (0.0-0.4); Eosinophils % (Auto) 0.9 % (0.0-4.3); Hematocrit 38.5 % (35.5-45.6); Lymphocytes % (Auto) 12.5 % (13.4-35.0); Mean Corpuscular HGB Conc 34 % (32-34); Mean Corpuscular Volume 100 fl (84-94); Monocytes # (Auto) 0.9 K/mm3 (0.0-0.8); Monocytes % (Auto) 10.7 % (0.0-7.3); Red Blood Count 3.86 M/mm3 (3.65-5.03); Red Cell Distribution Width 14.1 % (13.2-15.2)
[2019-10-17 05:48] LABS: Platelet Count 83 K/mm3 (140-440)
[2019-10-17 06:03] LABS: Calcium 7.8 mg/dL (8.4-10.2)
--- NOTE | 2019-10-17 09:01 | Progress Note ---
Assessment and Plan Atrial fibrillation, persistent on metoprolol for rate control Pt has been deemed to be a poor candidate for care home anticoagulation given overall frailty and thrombocytopenia Acute renal failure -initiated on dialysis Hypertension Dilated Cardiomyopathy, uncertain duration an echo this admission shows atrial enlargement, decreased left ventricular systolic function, ejection fraction 35-40%. Continue medical therapy for dilated cardiomyopathy and rate controlling agents for atrial fibrillation that persists. Otherwise, conservative cardiac management. Subjective Date of service: 10/17/19 Principal diagnosis: PRIMO Interval history: Patient is resting in bed comfortably. Afib with a well controlled ventricular rate on telemetry. Objective Vital Signs Temp Pulse Resp BP Pulse Ox 10/17/19 05:44 102 H 176/85 10/17/19 05:43 102 H 172/85 10/17/19 05:12 97.8 F 102 H 18 176/85 98 10/17/19 00:20 97.3 F L 85 18 158/88 98 10/17/19 00:17 74 176/92 98 10/16/19 23:00 18 97 10/16/19 22:01 102 H 161/101 10/16/19 20:29 98.1 F 64 18 165/101 97 10/16/19 20:18 91 H 10/16/19 17:01 96.4 F L 62 16 150/83 10/16/19 16:45 92 H 141/72 10/16/19 16:30 93 H 145/88 10/16/19 16:15 109 H 128/67 10/16/19 16:00 78 171/84 10/16/19 15:45 75 171/69 10/16/19 15:30 98 H 151/90 10/16/19 15:15 85 103/63 10/16/19 15:00 71 132/52 10/16/19 14:45 75 157/63 10/16/19 14:30 79 130/68 10/16/19 14:15 80 169/87 10/16/19 14:05 85 160/96 10/16/19 13:55 96.6 F L 76 14 143/76 10/16/19 11:56 96.0 F L 81 18 162/91 99 10/16/19 11:00 18 97 - Physical Examination General: No Apparent Distress HEENT: Positive: PERRL Cardiac: Positive: irregularly irregular Extremities: Absent: edema - Labs and Meds CBC 10/17/19 Range/Units 05:27 WBC 8.0 (4.5-11.0) K/mm3 RBC 3.86 (3.65-5.03) M/mm3 Hgb 13.0 (11.8-15.2) gm/dl Hct 38.5 (35.5-45.6) % Plt Count 83 L (140-440) K/mm3 Lymph # 1.0 L (1.2-5.4) K/mm3 Wolfe # 0.9 H (0.0-0.8) K/mm3 Eos # 0.1 (0.0-0.4) K/mm3 Baso # 0.0 (0.0-0.1) K/mm3 Comprehensive Metabolic Panel 10/16/19 10/17/19 Range/Units 20:28 05:27 Sodium 151 H D 151 H (137-145) mmol/L Potassium 3.0 L (3.6-5.0) mmol/L Chloride 107.8 H (98-107) mmol/L Carbon Dioxide 28 (22-30) mmol/L BUN 54 H (9-20) mg/dL Creatinine 2.3 H (0.8-1.5) mg/dL Glucose 156 H (75-100) mg/dL Calcium 7.8 L (8.4-10.2) mg/dL
[2019-10-17] MEDS: METOPROLOL TARTRATE 50 MG TAB PO SCH ×2 (11:07→22:20)
[2019-10-17] MEDS: ENOXAPARIN 30 MG/0.3 ML INJ SUB-Q SCH (11:07)
[2019-10-17] MEDS: ASPIRIN EC 81 MG TAB PO SCH (11:09)
--- NOTE | 2019-10-17 11:25 | Progress Note ---
Assessment and Plan Acute renal failure, possible ischemic ATN from low BP, also possible TTP/HUS Sepsis Afib with RVR Hypotension Thrombocytopenia Hypokalemia Plan: HD again today for clearance only Awaiting hematology evaluation to r/o TMA, LDH was elevated ARABELLA, ANCA, SPEP, C3, C4, Anti-GBM, SPEP, urine eosinophils-pending Hypernatremia-cont D5W@125 ml/hr as ordered today Goal correction no more than 8-10 mmol/24hrs Strict I&O monitoring Obtain daily weights Renally dose medications Avoid nephrotoxic agents Monitor electrolytes and renal function closely Jamey roblero MD [phone] Subjective Date of service: 10/17/19 Principal diagnosis: PRIMO Interval history: patient is resting, no family at bedside. Objective - Vital Signs Vital signs: Vital Signs - 12hr 10/17/19 10/17/19 10/17/19 00:17 00:20 05:12 Temperature 97.3 F L 97.8 F Pulse Rate 74 85 102 H Respiratory 18 18 Rate Blood Pressure 176/92 158/88 176/85 O2 Sat by Pulse 98 98 98 Oximetry 10/17/19 10/17/19 10/17/19 05:43 05:44 09:16 Temperature 97.7 F Pulse Rate 102 H 102 H Respiratory 18 Rate Blood Pressure 172/85 176/85 163/101 O2 Sat by Pulse Oximetry 10/17/19 11:07 Temperature Pulse Rate 80 Respiratory Rate Blood Pressure 166/91 O2 Sat by Pulse Oximetry - General Appearance General appearance: well-developed, well-nourished EENT: ATNC, PERRL, mucous membranes dry Neck: no JVD Respiratory: Present: Clear to Ascultation Cardiology: irregular Gastrointestinal: normoactive bowel sounds, no tenderness, no distended Integumentary: no rash, warm and dry Neurologic: no focal deficit Musculoskeletal: other (no edeman in BLE) Psychiatric: other (lethargic) - Lab 10/17/19 05:27 10/17/19 05:27 Most recent lab results Calcium 7.8 mg/dL (8.4-10.2) L 10/17/19 05:27 Phosphorus 3.30 mg/dL (2.5-4.5) D 10/17/19 05:27 Medications & Allergies - Medications Allergies/Adverse Reactions: Allergies No Known Allergies Allergy (Unverified 10/10/19 21:31) Home Medications: Home Medications Medication Instructions Recorded Confirmed Last Taken Type Metoprolol 10/10/19 Unknown History Active Medications: Generic Name Dose Route Start Last Admin Trade Name Freq PRN Reason Stop Dose Admin Acetaminophen 650 mg 10/11/19 02:03 Tylenol PO Q4H PRN Pain MILD(1-3)/Fever >100.5/ANNE Aspirin 81 mg 10/14/19 10:00 10/17/19 11:09 Halfprin Ec PO 81 mg QDAY NETO Administration Enoxaparin Sodium 30 mg 10/14/19 10:00 10/17/19 11:07 Enoxaparin SUB-Q 30 mg QDAY NETO Administration Hydralazine HCl 5 mg 10/11/19 08:00 Apresoline IV Q30MIN PRN Hypertension Sodium Chloride 100 mls @ 999 mls/hr 10/15/19 20:17 Nacl 0.9% IV EMILIE PRN Hypotension Dextrose 1,000 mls @ 125 mls/hr 10/16/19 10:00 10/17/19 03:29 D5w IV 125 mls/hr DIRECT NETO Administration Isosorbide Dinitrate/Hydralazine 1 each 10/13/19 14:00 10/17/19 05:43 Bidil 20/37.5mg PO Not Given Q8HR NETO Labetalol HCl 10 mg 10/11/19 13:00 10/17/19 05:44 Labetalol IV 10 mg Q4H PRN Administration Hypertension Metoprolol Tartrate 50 mg 10/11/19 10:00 10/17/19 11:07 Metoprolol PO 50 mg BID NETO Administration Ondansetron HCl 4 mg 10/11/19 02:03 Zofran IV Q8H PRN Nausea And Vomiting Sodium Chloride 10 ml 10/11/19 10:00 10/17/19 11:09 Sodium Chloride Flush Syringe 10 Ml IV 10 ml BID NETO Administration Sodium Chloride 10 ml 10/11/19 02:03 Sodium Chloride Flush Syringe 10 Ml IV PRN PRN LINE FLUSH
--- NOTE | 2019-10-17 12:46 | Progress Note ---
Assessment and Plan Assessment and plan: Toxic metabolic encephalopathy. Treat underlying causes SIRS No obvious infection Chest x-ray negative, CT of the abdomen showed some mild nonspecific inflammation near the distal aorta. ID following A. fib with RVR, status post conversion DC heparin drip, patient thrombocytopenic cardiology following Acute metabolic encephalopathy altered mental status,confusion Chronic hepatitis B. hepatitis B surface antigen positive. LFTs not elevated. 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 Slight improvement. Cr 3.[address] Oliveira, hematology for low plaletels but he says he does not work here anymore. called and updated daughter on [phone] 10/16/19 patient presented with alterd mental status,nausea,vomiting. Found to have PRIMO due to ATN, thrombocytopenia. Cr worsening. Discussed with Nephrology yesterday. Plan to initiate dialysis if he gets worse. labs show Syphilis IgG antibody positive. ID to evaluate. 10/17/2019. Follow-up hepatitis B PCR. Check MRI of brain. Follow-up RPR with titer to determine active syphilis. 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 If mental status does not improve consider LP. History Interval history: No new issues overnight Hospitalist Physical - Constitutional Vitals: Temp Pulse Resp BP Pulse Ox 97.7 F 80 18 166/91 98 10/17/19 09:16 10/17/19 11:07 10/17/19 09:16 10/17/19 11:07 10/17/19 05:12 General appearance: Present: no acute distress - EENT Eyes: Present: PERRL, EOM intact ENT: hearing intact, clear oral mucosa, dentition normal - Neck Neck: Present: supple, normal ROM - Respiratory Respiratory effort: normal Respiratory: bilateral: CTA - Cardiovascular Rhythm: regular Heart Sounds: Present: S1 & S2. Absent: gallop, rub - Extremities Extremities: no ischemia, No edema, Full ROM - Abdominal General gastrointestinal: soft, non-tender, non-distended, normal bowel sounds - Integumentary Integumentary: Present: clear, warm, dry - Neurologic Neurologic: CNII-XII intact, moves all extremities Results - Labs CBC & Chem 7: 10/17/19 05:27 10/17/19 05:27 Labs: Laboratory Last Values WBC 8.0 K/mm3 (4.5-11.0) 10/17/19 05:27 RBC 3.86 M/mm3 (3.65-5.03) 10/17/19 05:27 Hgb 13.0 gm/dl (11.8-15.2) 10/17/19 05:27 Hct 38.5 % (35.5-45.6) 10/17/19 05:27 MCV 100 fl (84-94) H 10/17/19 05:27 MCH 34 pg (28-32) H 10/17/19 05:27 MCHC 34 % (32-34) 10/17/19 05:27 RDW 14.1 % (13.2-15.2) 10/17/19 05:27 Plt Count 83 K/mm3 (140-440) L 10/17/19 05:27 Lymph % (Auto) 12.5 % (13.4-35.0) L 10/17/19 05:27 Haakon % (Auto) 10.7 % (0.0-7.3) H 10/17/19 05:27 Eos % (Auto) 0.9 % (0.0-4.3) 10/17/19 05:27 Baso % (Auto) 0.2 % (0.0-1.8) 10/17/19 05:27 Lymph # 1.0 K/mm3 (1.2-5.4) L 10/17/19 05:27 Haakon # 0.9 K/mm3 (0.0-0.8) H 10/17/19 05:27 Eos # 0.1 K/mm3 (0.0-0.4) 10/17/19 05:27 Baso # 0.0 K/mm3 (0.0-0.1) 10/17/19 05:27 Add Manual Diff Complete 10/11/19 04:42 Total Counted 100 10/11/19 04:42 Seg Neutrophils % 75.7 % (40.0-70.0) H 10/17/19 05:27 Seg Neuts % (Manual) 93.0 % (40.0-70.0) H 10/11/19 04:42 Band Neutrophils % 1.0 % 10/11/19 04:42 Lymphocytes % (Manual) 2.0 % (13.4-35.0) L 10/11/19 04:42 Reactive Lymphs % (Man) 0 % 10/11/19 04:42 Monocytes % (Manual) 4.0 % (0.0-7.3) 10/11/19 04:42 Eosinophils % (Manual) 0 % (0.0-4.3) 10/11/19 04:42 Basophils % (Manual) 0 % (0.0-1.8) 10/11/19 04:42 Metamyelocytes % 0 % 10/11/19 04:42 Myelocytes % 0 % 10/11/19 04:42 Promyelocytes % 0 % 10/11/19 04:42 Blast Cells % 0 % 10/11/19 04:42 Nucleated RBC % Not Reportable 10/11/19 04:42 Seg Neutrophils # 6.1 K/mm3 (1.8-7.7) 10/17/19 05:27 Seg Neutrophils # Man 14.8 K/mm3 (1.8-7.7) H 10/11/19 04:42 Band Neutrophils # 0.2 K/mm3 10/11/19 04:42 Lymphocytes # (Manual) 0.3 K/mm3 (1.2-5.4) L 10/11/19 04:42 Abs React Lymphs (Man) 0.0 K/mm3 10/11/19 04:42 Monocytes # (Manual) 0.6 K/mm3 (0.0-0.8) 10/11/19 04:42 Eosinophils # (Manual) 0.0 K/mm3 (0.0-0.4) 10/11/19 04:42 Basophils # (Manual) 0.0 K/mm3 (0.0-0.1) 10/11/19 04:42 Metamyelocytes # 0.0 K/mm3 10/11/19 04:42 Myelocytes # 0.0 K/mm3 10/11/19 04:42 Promyelocytes # 0.0 K/mm3 10/11/19 04:42 Blast Cells # 0.0 K/mm3 10/11/19 04:42 WBC Morphology Not Reportable 10/11/19 04:42 Hypersegmented Neuts Not Reportable 10/11/19 04:42 Hyposegmented Neuts Not Reportable 10/11/19 04:42 Hypogranular Neuts Not Reportable 10/11/19 04:42 Smudge Cells Not Reportable 10/11/19 04:42 Toxic Granulation Not Reportable 10/11/19 04:42 Toxic Vacuolation Not Reportable 10/11/19 04:42 Dohle Bodies Not Reportable 10/11/19 04:42 Pelger-Huet Anomaly Not Reportable 10/11/19 04:42 Glenys Rods Not Reportable 10/11/19 04:42 Platelet Estimate Consistent w auto 10/11/19 04:42 Clumped Platelets Not Reportable 10/11/19 04:42 Plt Clumps, EDTA Not Reportable 10/11/19 04:42 Large Platelets Not Reportable 10/11/19 04:42 Giant Platelets Not Reportable 10/11/19 04:42 Platelet Satelliting Not Reportable 10/11/19 04:42 Plt Morphology Comment Not Reportable 10/11/19 04:42 RBC Morphology Not Reportable 10/11/19 04:42 Dimorphic RBCs Not Reportable 10/11/19 04:42 Polychromasia Not Reportable 10/11/19 04:42 Hypochromasia Not Reportable 10/11/19 04:42 Poikilocytosis Not Reportable 10/11/19 04:42 Anisocytosis Not Reportable 10/11/19 04:42 Microcytosis Not Reportable 10/11/19 04:42 Macrocytosis Not Reportable 10/11/19 04:42 Spherocytes Not Reportable 10/11/19 04:42 Pappenheimer Bodies Not Reportable 10/11/19 04:42 Sickle Cells Not Reportable 10/11/19 04:42 Target Cells Not Reportable 10/11/19 04:42 Tear Drop Cells Not Reportable 10/11/19 04:42 Ovalocytes Not Reportable 10/11/19 04:42 Helmet Cells Not Reportable 10/11/19 04:42 [place] Bodies Not Reportable 10/11/19 04:42 [place] Rings Not Reportable 10/11/19 04:42 Paula Cells Not Reportable 10/11/19 04:42 Bite Cells Not Reportable 10/11/19 04:42 Crenated Cell Not Reportable 10/11/19 04:42 Elliptocytes Rare 10/11/19 04:42 Acanthocytes (Spur) Not Reportable 10/11/19 04:42 Rouleaux Not Reportable 10/11/19 04:42 Hemoglobin C Crystals Not Reportable 10/11/19 04:42 Schistocytes Not Reportable 10/11/19 04:42 Malaria parasites Not Reportable 10/11/19 04:42 Robin Bodies Not Reportable 10/11/19 04:42 Hem Pathologist Commnt No 10/11/19 04:42 PT 16.1 Sec. (12.2-14.9) H 10/15/19 08:46 INR 1.32 (0.87-1.13) H 10/15/19 08:46 APTT 32.9 Sec. (24.2-36.6) 10/11/19 01:13 Sodium 151 mmol/L (137-145) H 10/17/19 05:27 Potassium 3.0 mmol/L (3.6-5.0) L 10/17/19 05:27 Chloride 107.8 mmol/L (98-107) H 10/17/19 05:27 Carbon Dioxide 28 mmol/L (22-30) 10/17/19 05:27 Anion Gap 18 mmol/L 10/17/19 05:27 BUN 54 mg/dL (9-20) H 10/17/19 05:27 Creatinine 2.3 mg/dL (0.8-1.5) H 10/17/19 05:27 Estimated GFR 27 ml/min 10/17/19 05:27 BUN/Creatinine Ratio 23 % 10/17/19 05:27 Glucose 156 mg/dL (75-100) H 10/17/19 05:27 POC Glucose 139 (70-105) H 10/13/19 18:18 Lactic Acid 3.20 mmol/L (0.7-2.0) H* 10/10/19 23:04 Calcium 7.8 mg/dL (8.4-10.2) L 10/17/19 05:27 Phosphorus 3.30 mg/dL (2.5-4.5) D 10/17/19 05:27 Total Bilirubin 2.50 mg/dL (0.1-1.2) H 10/10/19 21:40 AST 39 units/L (5-40) 10/10/19 21:40 ALT 22 units/L (7-56) 10/10/19 21:40 Alkaline Phosphatase 102 units/L (35-129) 10/10/19 21:40 Ammonia 54.0 umol/L (25-60) 10/10/19 21:40 Lactate Dehydrogenase 331 units/L (91-180) H 10/14/19 10:56 Total Creatine Kinase 563 units/L (55-170) H 10/14/19 10:56 Troponin T 0.024 ng/mL (0.00-0.029) 10/10/19 21:40 Total Protein 7.6 g/dL (6.3-8.2) 10/10/19 21:40 Albumin 4.1 g/dL (3.9-5) 10/10/19 21:40 Albumin/Globulin Ratio 1.2 % 10/10/19 21:40 TSH 2.550 mlU/mL (0.270-4.200) 10/10/19 21:40 Urine Color Yellow (Yellow) 10/10/19 23:18 Urine Turbidity Clear (Clear) 10/10/19 23:18 Urine pH 6.0 (5.0-7.0) 10/10/19 23:18 Ur Specific [place] 1.015 (1.003-1.030) 10/10/19 23:18 Urine Protein 300 mg/dl mg/dL (Negative) 10/10/19 23:18 Urine Glucose (UA) 50 mg/dL (Negative) 10/10/19 23:18 Urine Ketones Neg mg/dL (Negative) 10/10/19 23:18 Urine Blood Sm (Negative) 10/10/19 23:18 Urine Nitrite Neg (Negative) 10/10/19 23:18 Urine Bilirubin Neg (Negative) 10/10/19 23:18 Urine Urobilinogen < 2.0 mg/dL (<2.0) 10/10/19 23:18 Ur Leukocyte Esterase Neg (Negative) 10/10/19 23:18 Urine WBC (Auto) 1.0 /HPF (0.0-6.0) 10/10/19 23:18 Urine RBC (Auto) 9.0 /HPF (0.0-6.0) 10/10/19 23:18 U Epithel Cells (Auto) < 1.0 /HPF (0-13.0) 10/10/19 23:18 Urine Bacteria (Auto) 1+ /HPF (Negative) 10/10/19 23:18 Hyaline Casts 6 /LPF 10/10/19 23:18 Urine Mucus Few /HPF 10/10/19 23:18 Syphilis IgG Antibody Reactive (NonReactive) A 10/15/19 14:53 Coronavirus (PCR) Negative (Negative) 10/11/19 11:14 Hepatitis A IgM Ab Non-reactive (NonReactive) 10/15/19 20:27 Hep Bs Antigen Reactive (Negative) 10/15/19 20:27 Hep B Core IgM Ab Non-reactive (NonReactive) 10/15/19 20:27 Hepatitis C Antibody Non-reactive (NonReactive) 10/15/19 20:27 HIV 1&2 Antibody Rapid Non react (Non React) 10/14/19 10:56 HIV P24 Antigen Non react (Non React) 10/14/19 10:56 Influenza A (Rapid) Negative (Negative) 10/10/19 22:25 Influenza B (Rapid) Negative (Negative) 10/10/19 22:25 Schistocytes Smear None seen 10/14/19 10:56 - Diagnostic Impressions Diagnostic Impressions: Echocardiogram 10/12/19 09:05 Transthoracic Echocardiogram Indication: Afib, HTN BP: 135/78 HR: 115 Conclusions *Global left ventricular systolic function is moderately decreased. *The estimated ejection fraction is 35-40%, but optimal assessment is limited by irregular heart rate. *Mild concentric left ventricular hypertrophy is observed. *The left and right atria are both severely dilated. *There is mild aortic regurgitation. *There is trace-mild mitral regurgitation. *There is moderate tricuspid regurgitation. *There is evidence of mild pulmonary hypertension. *The right ventricular systolic pressure is calculated at 28 mmHg. Findings Left Ventricle: The left ventricular chamber size is mildly dilated. Mild concentric left ventricular hypertrophy is observed. Global left ventricular systolic function is moderately decreased. The estimated ejection fraction is 35-40%. Left Atrium: The left atrium is severely dilated. Right Ventricle: The right ventricle is slightly dilated. Right Atrium: The right atrium is moderate to severely dilated. Aortic Valve: The aortic valve is trileaflet. The aortic valve leaflets are moderately thickened. There is mild aortic regurgitation. There is no evidence of aortic stenosis. Mitral Valve: The mitral valve leaflets are mildly thickened. There is trace of mitral regurgitation. There is no evidence of mitral stenosis. Tricuspid Valve: There is moderate tricuspid regurgitation. The right ventricular systolic pressure is calculated at 28 mmHg. There is evidence of mild pulmonary hypertension. Pulmonic Valve: There is mild pulmonic regurgitation. Pericardium: There is no pericardial effusion. Aorta: There is no dilatation of the aortic root. Venous: The inferior vena cava appears normal in size. Measurements Chambers 2D Name Value Normal Range IVSd (2D) 1.27 cm (0.6 - 1.1) LVPWd (2D) 1.06 cm (0.6 - 1.1) LVIDd (2D) 4.06 cm (3.7 - 5.6) LVIDs (2D) 2.91 cm (2 - 3.8) LV FS (2D) 28.16 % - EF Teichholz (2D) 54.96 % - Ao root diameter (2D) 2.83 cm (2 - 3.7) Volumes/Mass Name Value Normal Range LA ESV SP 4CH (A/L) 74.63 ml - LA ESV SP 2CH (A/L) 67.89 ml - LA ESV BP (A/L) 81.32 ml - LA ESV BP (A/L) index 54.21 ml/m2 - LA ESV SP 4CH (MOD) 65.06 ml - LA ESV SP 2CH (MOD) 65.08 ml - LA ESV BP (MOD) 74.22 ml - LA ESV BP (MOD) index 49.48 ml/m2 - LV EDV SP 4CH (MOD) 46.88 ml - LV ESV SP 4CH (MOD) 14.91 ml - EF SP 4CH (MOD) 68.19 % - LV EDV SP 2CH (MOD) 26.53 ml - LV ESV SP 2CH (MOD) 11.71 ml - EF SP 2CH (MOD) 55.86 % - LV EDV BP 37.95 ml - LV ESV BP 13.85 ml - BP EF (MOD) 63.51 % - Diastolic/Systolic Function Name Value Normal Range MV E-wave Vmax 0.8 m/sec - MV deceleration time 145.29 msec - Aortic Valve Name Value Normal Range AV Vmax 0.79 m/sec - AV VTI 9.87 cm - AV peak gradient 2.5 mmHg - AV mean gradient 0.94 mmHg - LVOT diameter 2.12 cm - LVOT Vmax 0.69 m/sec - LVOT VTI 12.18 cm - LVOT peak gradient 1.93 mmHg - LVOT mean gradient 1.04 mmHg - SV LVOT 42.84 ml - YAMILA (continuity Vmax) 3.08 cm2 - YAMILA (continuity VTI) 4.34 cm2 - AR PHT 498.2 msec - AR peak gradient 55.86 mmHg - Tricuspid Valve Name Value Normal Range TR Vmax 2.52 m/sec - TR peak gradient 25.41 mmHg - RAP 3 mmHg - RVSP 28 mmHg - Pulmonic Valve/Qp:Qs Name Value Normal Range PV Vmax 0.74 m/sec - PV VTI 10.83 cm - PV peak gradient 2.2 mmHg - PV mean gradient 1.08 mmHg - WV end-diastolic Vmax 1.28 m/sec - RVOT Vmax 0.01 m/sec - RVOT VTI 11.04 cm - RVOT peak gradient 2.38 mmHg - Miranda/IV: Voiding Method Incontinent IV Catheter Type [Left Hand] Peripheral IV IV Catheter Type [Right VAS Cath Internal Jugular] IV Catheter Type [Left Forearm Peripheral IV ] IV Catheter Type [Right INT / Saline Lock Forearm] Active Medications - Current Medications Current Medications: Generic Name Dose Route Start Last Admin Trade Name Freq PRN Reason Stop Dose Admin Acetaminophen 650 mg 10/11/19 02:03 Tylenol PO Q4H PRN Pain MILD(1-3)/Fever >100.5/ANNE Aspirin 81 mg 10/14/19 10:00 10/17/19 11:09 Halfprin Ec PO 81 mg QDAY NETO Administration Enoxaparin Sodium 30 mg 10/14/19 10:00 10/17/19 11:07 Enoxaparin SUB-Q 30 mg QDAY NETO Administration Hydralazine HCl 5 mg 10/11/19 08:00 Apresoline IV Q30MIN PRN Hypertension Sodium Chloride 100 mls @ 999 mls/hr 10/15/19 20:17 Nacl 0.9% IV EMILIE PRN Hypotension Dextrose 1,000 mls @ 125 mls/hr 10/16/19 10:00 10/17/19 03:29 D5w IV 125 mls/hr DIRECT NETO Administration Isosorbide Dinitrate/Hydralazine 1 each 10/13/19 14:00 10/17/19 05:43 Bidil 20/37.5mg PO Not Given Q8HR NETO Labetalol HCl 10 mg 10/11/19 13:00 10/17/19 05:44 Labetalol IV 10 mg Q4H PRN Administration Hypertension Metoprolol Tartrate 50 mg 10/11/19 10:00 10/17/19 11:07 Metoprolol PO 50 mg BID NETO Administration Ondansetron HCl 4 mg 10/11/19 02:03 Zofran IV Q8H PRN Nausea And Vomiting Sodium Chloride 10 ml 10/11/19 10:00 10/17/19 11:09 Sodium Chloride Flush Syringe 10 Ml IV 10 ml BID NETO Administration Sodium Chloride 10 ml 10/11/19 02:03 Sodium Chloride Flush Syringe 10 Ml IV PRN PRN LINE FLUSH Nutrition/Malnutrition Assess - Dietary Evaluation Nutrition/Malnutrition Findings: Nutrition Notes Start: 10/11/19 13:24 Freq: Status: Active Protocol: Document 10/16/19 12:43 LM (Rec: 10/16/19 12:43 LM [id number]) Nutrition Notes Initial or Follow up Brief Note Subjective/Other Information Pt NPO for label remover procedure. Nutrition Intervention Follow-Up By: 10/17/19 Additional Comments F/U for PO/ONS intakes, POC
--- NOTE | 2019-10-17 13:09 | Progress Note ---
Assessment and Plan Cultures: 10/10/2019 blood culture: No growth A/P: 84-year-old male with hypertension, atrial fibrillation, dementia was brought into the emergency room with nausea, vomiting and decreased oral intake. He was also having fevers at home and his was seemingly unable to take care of him: #SIRS: Afebrile. No obvious acute infection identified. CXR without pneumonia. CT abdomen with mild nonspecific inflammation adjacent to the distal aorta. Blood cultures negative, UA without pyuria. Influenza rapid test negative, COVID-19 PCR negative, HIV negative, hepatitis C antibody negative. Hepatitis B surface antigen is reactive. #Acute encephalopathy: likely due to high sodium and uremia, better #Chronic hepatitis B: Hepatitis B surface antigen is positive. AST, ALT are not elevated. Hep B PCR ordered. Considering his age, and no ALT elevation or obvious clinical evidence of cirrhosis or hepatic decompensation, doubt fci Hep B treatment is going to be of much benefit. #Acute kidney injury: Creatinine rising compared to admission. Nephrology following. Improving. #Mild thrombocytopenia: fluctuating. #Afib with RPR #Hypernatremia: better Recs: Hep B DNA PCR ordered -pending f/u RPR with titer to determine active syphilis. Noted positive syphilis IgG indicating previous or current infection. Discussed with lab Monitor mentation. Consider brain MRI If mental status no better, consider LP Will follow. Darlene Shields MD Infectious Diseases Chronic Care Nurse [facility] ([facility]) M [phone] O [phone] Subjective Date of service: 10/17/19 Principal diagnosis: PRIMO Interval history: More alert not following commands no fever Objective - Exam Narrative Exam: General appearance: alert in NAD Eyes: anicteric sclerae, moist conjunctivae; no lid-lag; PERRLA HENT: Atraumatic; oropharynx limited Lungs: CTA CV: RRR no murmur Abdomen: Soft, non-tender Extremities: no edema, no cyanosis Skin: No rash. Psych:no agitated Neuro: alert non verbal - Constitutional Vitals: Vital Signs Temp Pulse Resp BP Pulse Ox 97.7 F 80 18 166/91 98 10/17/19 09:16 10/17/19 11:07 10/17/19 09:16 10/17/19 11:07 10/17/19 05:12 Temperature -Last 24 Hours Temperature 97.7 F Temperature 97.8 F Temperature 97.3 F Temperature 98.1 F Temperature 96.4 F Temperature 96.6 F - Labs CBC & Chem 7: 10/17/19 05:27 10/17/19 05:27 Labs: Abnormal lab results 10/16/19 10/17/19 10/17/19 Range/Units 20:28 05:27 05:27 MCV 100 H (84-94) fl MCH 34 H (28-32) pg Plt Count 83 L (140-440) K/mm3 Lymph % (Auto) 12.5 L (13.4-35.0) % Sanders % (Auto) 10.7 H (0.0-7.3) % Lymph # 1.0 L (1.2-5.4) K/mm3 Sanders # 0.9 H (0.0-0.8) K/mm3 Seg Neutrophils % 75.7 H (40.0-70.0) % Sodium 151 H D 151 H (137-145) mmol/L Potassium 3.0 L (3.6-5.0) mmol/L Chloride 107.8 H (98-107) mmol/L BUN 54 H (9-20) mg/dL Creatinine 2.3 H (0.8-1.5) mg/dL Glucose 156 H (75-100) mg/dL Calcium 7.8 L (8.4-10.2) mg/dL
--- NOTE | 2019-10-17 16:38 | Consultation ---
History of Present Illness Consult date: 10/17/19 Reason for Consult: Altered Mental Status Chief complaint: Altered mental status History of present illness: Patient is an 84 y/o man w/ a h/o HTN, A-fib. He presented on 10/10/19 w/ symptoms of nausea, vomiting, altered mental status, and failure to thrive. Patient was found to have A-fib w/ RVR, hypertensive urgency, SIRS, lactic acidosis, leukocytosis, ARF. During the course of admission, patient's ARF worsened, and he required to be started on HD. He also developed hypernatremia. Per family, at baseline, he does not have any major cognitive impairment, and is independent in ADLs, including driving. The patient had been ill with a cold-like illness prior to admission, and his son states that he hadn't fully recovered from that, and therefore was not eating or drinking properly. History obtained from chart and from son who was called by phone. His son spoke to the patient earlier today, and states that he did not seem confused, however he was lethargic. Patient is hard of hearing at baseline. Past History Past Medical History: hypertension, other (A-fib) Social history: lives with family Family history: no significant family history Medications and Allergies Allergies Allergy/AdvReac Type Severity Reaction Status Date / Time No Known Allergies Allergy Unverified 10/10/19 21:31 Home Medications Medication Instructions Recorded Confirmed Last Taken Type Metoprolol 10/10/19 Unknown History Active Meds: Active Medications Acetaminophen (Tylenol) 650 mg PO Q4H PRN PRN Reason: Pain MILD(1-3)/Fever >100.5/ANNE Aspirin (Halfprin Ec) 81 mg PO QDAY [facility] Last Admin: 10/17/19 11:09 Dose: 81 mg Documented by: Enoxaparin Sodium (Enoxaparin) 30 mg SUB-Q QDAY [facility] Last Admin: 10/17/19 11:07 Dose: 30 mg Documented by: Hydralazine HCl (Apresoline) 5 mg IV Q30MIN PRN PRN Reason: Hypertension Sodium Chloride (Nacl 0.9%) 100 mls @ 999 mls/hr IV EMILIE PRN PRN Reason: Hypotension Dextrose (D5w) 1,000 mls @ 125 mls/hr IV DIRECT [facility] Last Admin: 10/17/19 13:29 Dose: 125 mls/hr Documented by: Isosorbide Dinitrate/Hydralazine (Bidil 20/37.5mg) 1 each PO Q8HR [facility] Last Admin: 10/17/19 13:32 Dose: Not Given Documented by: Labetalol HCl (Labetalol) 10 mg IV Q4H PRN PRN Reason: Hypertension Last Admin: 10/17/19 05:44 Dose: 10 mg Documented by: Metoprolol Tartrate (Metoprolol) 50 mg PO BID [facility] Last Admin: 10/17/19 11:07 Dose: 50 mg Documented by: Ondansetron HCl (Zofran) 4 mg IV Q8H PRN PRN Reason: Nausea And Vomiting Sodium Chloride (Sodium Chloride Flush Syringe 10 Ml) 10 ml IV BID [facility] Last Admin: 10/17/19 11:09 Dose: 10 ml Documented by: Sodium Chloride (Sodium Chloride Flush Syringe 10 Ml) 10 ml IV PRN PRN PRN Reason: LINE FLUSH Review of Systems ROS unobtainable: due to mental status Physical Examination - Vital Signs Vital Signs: Vital Signs Temp 97.6 F 10/10/19 21:02 - Physical Exam Narrative exam: Patient is alert, lethargic, oriented only to self, follows 1-step commands. P atient noted to have mild dysarthria. EOMI, VFF, tongue midline, no facial weakness noted. Patient able to move all extremities anti-gravity and symmetrically. W/d to pain in all extremities. Exam limited due to telemedicine encounter. - Constitutional General appearance: comfortable - EENT EENT: Present: ATNC Results - Laboratory Findings CBC and BMP: 10/17/19 05:27 10/17/19 05:27 Abnormal Lab Findings: Abnormal Labs 10/10/19 10/10/19 10/10/19 21:40 21:40 21:40 WBC 18.1 H Hgb 15.4 H Hct 47.7 H MCV 101 H MCH 33 H MCHC Plt Count 132 L Lymph % (Auto) 5.3 L Taney % (Auto) Lymph # 1.0 L Taney # 1.3 H Seg Neutrophils % 86.9 H Seg Neuts % (Manual) Lymphocytes % (Manual) Seg Neutrophils # 15.7 H Seg Neutrophils # Man Lymphocytes # (Manual) PT INR Sodium Potassium Chloride Carbon Dioxide 17 L BUN 39 H Creatinine Glucose 139 H POC Glucose Lactic Acid 2.90 H* Calcium Phosphorus Total Bilirubin 2.50 H Lactate Dehydrogenase Total Creatine Kinase Syphilis IgG Antibody 10/10/19 10/10/19 10/11/19 21:40 23:04 01:13 WBC Hgb Hct MCV MCH MCHC Plt Count Lymph % (Auto) Taney % (Auto) Lymph # Taney # Seg Neutrophils % Seg Neuts % (Manual) Lymphocytes % (Manual) Seg Neutrophils # Seg Neutrophils # Man Lymphocytes # (Manual) PT 15.1 H INR 1.14 H 1.18 H Sodium Potassium Chloride Carbon Dioxide BUN Creatinine Glucose POC Glucose Lactic Acid 3.20 H* Calcium Phosphorus Total Bilirubin Lactate Dehydrogenase Total Creatine Kinase Syphilis IgG Antibody 10/11/19 10/11/19 10/12/19 04:42 04:42 14:04 WBC 15.9 H Hgb 15.5 H Hct 46.6 H MCV 101 H MCH 33 H MCHC Plt Count 81 L Lymph % (Auto) Taney % (Auto) Lymph # Taney # Seg Neutrophils % Seg Neuts % (Manual) 93.0 H Lymphocytes % (Manual) 2.0 L Seg Neutrophils # Seg Neutrophils # Man 14.8 H Lymphocytes # (Manual) 0.3 L PT INR Sodium Potassium Chloride Carbon Dioxide 21 L BUN 38 H Creatinine Glucose 183 H POC Glucose 140 H Lactic Acid Calcium Phosphorus Total Bilirubin Lactate Dehydrogenase Total Creatine Kinase Syphilis IgG Antibody 10/13/19 10/13/19 10/13/19 07:37 07:37 18:18 WBC 14.4 H Hgb Hct MCV 100 H MCH 34 H MCHC Plt Count 86 L Lymph % (Auto) 6.6 L Taney % (Auto) 8.2 H Lymph # 0.9 L Taney # 1.2 H Seg Neutrophils % 84.9 H Seg Neuts % (Manual) Lymphocytes % (Manual) Seg Neutrophils # 12.2 H Seg Neutrophils # Man Lymphocytes # (Manual) PT INR Sodium Potassium Chloride 108.0 H Carbon Dioxide 14 L D BUN 100 H Creatinine 3.7 H D Glucose 148 H POC Glucose 139 H Lactic Acid Calcium Phosphorus Total Bilirubin Lactate Dehydrogenase Total Creatine Kinase Syphilis IgG Antibody 10/14/19 10/14/19 10/14/19 06:16 06:16 10:56 WBC Hgb Hct MCV 100 H MCH 34 H MCHC Plt Count 90 L Lymph % (Auto) 5.7 L Taney % (Auto) Lymph # 0.6 L Taney # Seg Neutrophils % 88.4 H Seg Neuts % (Manual) Lymphocytes % (Manual) Seg Neutrophils # 8.6 H Seg Neutrophils # Man Lymphocytes # (Manual) PT INR Sodium 151 H Potassium 3.5 L Chloride 115.7 H Carbon Dioxide 14 L BUN 121 H Creatinine 4.1 H Glucose 162 H POC Glucose Lactic Acid Calcium 7.9 L Phosphorus Total Bilirubin Lactate Dehydrogenase 331 H Total Creatine Kinase 563 H Syphilis IgG Antibody 10/15/19 10/15/19 10/15/19 05:18 05:18 08:46 WBC Hgb Hct MCV 99 H MCH 34 H MCHC Plt Count 98 L Lymph % (Auto) 6.4 L Taney % (Auto) Lymph # 0.6 L Taney # Seg Neutrophils % 86.8 H Seg Neuts % (Manual) Lymphocytes % (Manual) Seg Neutrophils # Seg Neutrophils # Man Lymphocytes # (Manual) PT 16.1 H INR 1.32 H Sodium 158 H Potassium 3.2 L Chloride 117.4 H Carbon Dioxide 20 L BUN 128 H Creatinine 3.8 H Glucose 120 H POC Glucose Lactic Acid Calcium Phosphorus 5.10 H Total Bilirubin Lactate Dehydrogenase Total Creatine Kinase Syphilis IgG Antibody 10/15/19 10/16/19 10/16/19 14:53 05:50 05:50 WBC Hgb Hct MCV 100 H MCH 35 H MCHC 35 H Plt Count 99 L Lymph % (Auto) 8.3 L Taney % (Auto) 7.8 H Lymph # 0.7 L Taney # Seg Neutrophils % 82.3 H Seg Neuts % (Manual) Lymphocytes % (Manual) Seg Neutrophils # Seg Neutrophils # Man Lymphocytes # (Manual) PT INR Sodium 161 H* Potassium 3.3 L Chloride 121.2 H Carbon Dioxide BUN 134 H Creatinine 4.1 H Glucose 126 H POC Glucose Lactic Acid Calcium 8.0 L Phosphorus 5.80 H Total Bilirubin Lactate Dehydrogenase Total Creatine Kinase Syphilis IgG Antibody Reactive A 10/16/19 10/17/19 10/17/19 20:28 05:27 05:27 WBC Hgb Hct MCV 100 H MCH 34 H MCHC Plt Count 83 L Lymph % (Auto) 12.5 L Taney % (Auto) 10.7 H Lymph # 1.0 L Taney # 0.9 H Seg Neutrophils % 75.7 H Seg Neuts % (Manual) Lymphocytes % (Manual) Seg Neutrophils # Seg Neutrophils # Man Lymphocytes # (Manual) PT INR Sodium 151 H D 151 H Potassium 3.0 L Chloride 107.8 H Carbon Dioxide BUN 54 H Creatinine 2.3 H Glucose 156 H POC Glucose Lactic Acid Calcium 7.8 L Phosphorus Total Bilirubin Lactate Dehydrogenase Total Creatine Kinase Syphilis IgG Antibody Assessment and Plan Patient is an 84 y/o man w/ a h/o HTN, A-fib, who p/w altered mental status, nausea, vomiting, and was found to have failure to thrive, hypertensive urgency, A-fib w/ RVR, ARF requiring HD, SIRS, hypernatremia, lactic acidosis, leuko cytosis. According to the patient's clinical findings, it is likely that he has metabolic encephalopathy, which is likely due to the aforementioned metabolic derangements. Plan: 1. Metabolic Encephalopathy - Likely in setting of hypertensive urgency, A-fib w/ RVR, ARF requiring HD, SIRS, hypernatremia, lactic acidosis, and leukocytosis. - Patient is notably lethargic today, however son states that he was at baseline of mental status and was not confused when he spoke to him over the phone [facility]. - CT head: Lt. frontal white matter hypodensity, age indeterminant. - Echo: EF 35-40%, LA severely dilated. - ID team investigating for possible syphilis. - Covid-19 negative. - As patient was not found to have an infectious source as of yet, agree with ID that MRI brain would aid in further investigating potential of meningo- encephalitis, and to rule out any intracranial pathology contributing to current mental status. - If patient's mental status does not continue to improve as metabol ic/infectious abnormalities are corrected, then will consider LP/CSF studies. - Continue to correct metabolic abnormalities/infections per primary team - Will continue to monitor neurologic status. Thank you for allowing me to take part in the care of this patient. Dayne Power MD Neurology This clinical encounter was provided via live telemedicine portal. Consultative service was provided for neurology to support local providers. The Acute Teleneurology team should be contacted with any neurologic worsening or clinical changes, new test results, or new patient history that is reported to or discovered by the local team following completion of the teleneurology consultation, specifically that which has the potential to impact the consultative recommendations. Patient/Family was informed the Neurology Consult would happen via TeleHealth consult by way of interactive audio and video telecommunications and consented to receiving care in this manner. Due to the potential for life-threatening deterioration due to underlying neurologic illness, and limited resources available for patient care, telemedicine was used as means of patient care. Telemedicine consultation is limited in the extent of physical exam that can be virtually provided. Time spent evaluating patient includes time for face to face visit via telemedicine, review of medical records, imaging studies and discussion of findings with providers, the patient and/or family.
[2019-10-17] MEDS ORDERED: SODIUM CHLORIDE 0.9% 1000 ML 2,000 ML ONE (18:54)
[2019-10-18] MEDS: ISOSORB DINIT/HYDRALAZINE 20-37.5MG TAB PO SCH ×4 (05:38→21:17)
[2019-10-18] MEDS: DEXTROSE 5% IN WATER 1,000 ML IV SCH ×2 (05:39→21:17)
--- NOTE | 2019-10-18 09:36 | Progress Note ---
Assessment and Plan Atrial fibrillation, persistent on metoprolol for rate control Pt has been deemed to be a poor candidate for shelter anticoagulation given overall frailty and thrombocytopenia Acute renal failure -initiated on dialysis Hypertension Dilated Cardiomyopathy, uncertain duration an echo this admission shows atrial enlargement, decreased left ventricular systolic function, ejection fraction 35-40%. Continue medical therapy for dilated cardiomyopathy and rate controlling agents for atrial fibrillation that persists. Otherwise, conservative cardiac management. Subjective Date of service: 10/18/19 Principal diagnosis: PRIMO Interval history: No interval cardiac changes. Objective Vital Signs Temp Pulse Resp BP BP Pulse Ox 10/18/19 08:42 18 10/18/19 07:56 98.0 F 95 H 18 137/84 94 10/18/19 05:39 93 H 153/101 10/18/19 05:38 93 H 153/101 10/18/19 04:10 104 H 164/85 10/18/19 04:01 98.0 F 104 H 18 164/85 98 10/18/19 01:05 97 F L 86 18 133/81 95 10/17/19 22:20 94 H 183/100 10/17/19 22:19 94 H 183/100 10/17/19 22:00 94 H 10/17/19 20:08 98.0 F 87 18 168/110 99 10/17/19 18:00 76 179/99 10/17/19 17:45 87 144/88 10/17/19 17:30 83 171/90 10/17/19 17:15 90 177/91 10/17/19 17:00 87 145/94 10/17/19 16:45 90 178/86 10/17/19 16:30 76 165/91 10/17/19 16:15 83 164/83 10/17/19 16:00 89 175/87 10/17/19 15:45 82 182/77 10/17/19 15:30 84 162/103 10/17/19 15:15 68 168/99 10/17/19 15:00 82 169/100 10/17/19 14:15 97.6 F 77 16 190/94 10/17/19 12:06 97.5 F L 87 16 162/109 99 10/17/19 11:10 166/91 10/17/19 11:07 80 166/91 10/17/19 11:00 18 97 10/17/19 10:00 87 - Physical Examination General: No Apparent Distress Cardiac: Positive: irregularly irregular Extremities: Absent: edema
[2019-10-18 10:41] LABS: Basophils % (Auto) 0.1 % (0.0-1.8); Eosinophils # (Auto) 0.2 K/mm3 (0.0-0.4); Eosinophils % (Auto) 1.7 % (0.0-4.3); Hematocrit 37.7 % (35.5-45.6); Hemoglobin 12.7 gm/dl (11.8-15.2); Lymphocytes # (Auto) 1.1 K/mm3 (1.2-5.4); Lymphocytes % (Auto) 12.4 % (13.4-35.0); Mean Corpuscular HGB Conc 34 % (32-34); Mean Corpuscular Volume 99 fl (84-94); Monocytes # (Auto) 0.9 K/mm3 (0.0-0.8); Monocytes % (Auto) 10.1 % (0.0-7.3); Red Cell Distribution Width 13.9 % (13.2-15.2)
[2019-10-18 10:45] LABS: Platelet Count 76 K/mm3 (140-440)
[2019-10-18 10:55] LABS: Calcium 7.8 mg/dL (8.4-10.2)
--- NOTE | 2019-10-18 11:14 | Progress Note ---
Assessment and Plan Assessment and plan: Toxic metabolic encephalopathy. Treat underlying causes SIRS No obvious infection Chest x-ray negative, CT of the abdomen showed some mild nonspecific inflammation near the distal aorta. ID following A. fib with RVR, status post conversion DC heparin drip, patient thrombocytopenic cardiology following Acute metabolic encephalopathy altered mental status,confusion Chronic hepatitis B. hepatitis B surface antigen positive. LFTs not elevated. Hypertension uncontrolled Start IV hydralazine, Nitropaste, monitor PRIMO due to ATN Nephrology following Hypernatremia Nephrology following Hypokalemia replace as needed Thrombocytopenia hematology following ict managers for possible placement DVT prophylaxis with SCDs only because of low platelets 10/15/19 patient with acute kidney injury due to ATN. Slight improvement. Cr 3.[address] Oliveira, hematology for low plaletels but he says he does not work here anymore. called and updated daughter on [phone] 10/16/19 patient presented with alterd mental status,nausea,vomiting. Found to have PRIMO due to ATN, thrombocytopenia. Cr worsening. Discussed with Nephrology yesterday. Plan to initiate dialysis if he gets worse. labs show Syphilis IgG antibody positive. ID to evaluate. 10/17/2019. Follow-up hepatitis B PCR. Check MRI of brain. Follow-up RPR with titer to determine active syphilis. 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 If mental status does not improve consider LP. 10/18/2019. Neurology evaluated the patient and diagnosed with metabolic encephalopathy with etiology likely secondary to hypertensive urgency, A-fib w/ RVR, ARF requiring HD, SIRS, hypernatremia, lactic acidosis, and leukocytosis. ID team investigating for possible syphilis. As patient was not found to have an infectious source as of yet, agree with ID that MRI brain would aid in further investigating potential of meningo-encephalitis, and to rule out any intracranial pathology contributing to current mental status. If patient's mental status does not continue to improve as metabolic/infectious abnormalities are corrected, then will consider LP/CSF studies. History Interval history: No new issues overnight Hospitalist Physical - Constitutional Vitals: Temp Pulse Resp BP Pulse Ox 98.0 F 95 H 18 137/84 94 10/18/19 07:56 10/18/19 07:56 10/18/19 08:42 10/18/19 07:56 10/18/19 07:56 General appearance: Present: no acute distress - EENT Eyes: Present: PERRL, EOM intact ENT: hearing intact, clear oral mucosa, dentition normal - Neck Neck: Present: supple, normal ROM - Respiratory Respiratory effort: normal Respiratory: bilateral: CTA - Cardiovascular Rhythm: regular Heart Sounds: Present: S1 & S2. Absent: gallop, rub - Extremities Extremities: no ischemia, No edema, Full ROM - Abdominal General gastrointestinal: soft, non-tender, non-distended, normal bowel sounds - Integumentary Integumentary: Present: clear, warm, dry - Neurologic Neurologic: CNII-XII intact, moves all extremities Results - Labs CBC & Chem 7: 10/18/19 09:49 10/18/19 09:49 Labs: Laboratory Last Values WBC 9.1 K/mm3 (4.5-11.0) 10/18/19 09:49 RBC 3.80 M/mm3 (3.65-5.03) 10/18/19 09:49 Hgb 12.7 gm/dl (11.8-15.2) 10/18/19 09:49 Hct 37.7 % (35.5-45.6) 10/18/19 09:49 MCV 99 fl (84-94) H 10/18/19 09:49 MCH 34 pg (28-32) H 10/18/19 09:49 MCHC 34 % (32-34) 10/18/19 09:49 RDW 13.9 % (13.2-15.2) 10/18/19 09:49 Plt Count 76 K/mm3 (140-440) L 10/18/19 09:49 Lymph % (Auto) 12.4 % (13.4-35.0) L 10/18/19 09:49 [place] % (Auto) 10.1 % (0.0-7.3) H 10/18/19 09:49 Eos % (Auto) 1.7 % (0.0-4.3) 10/18/19 09:49 Baso % (Auto) 0.1 % (0.0-1.8) 10/18/19 09:49 Lymph # 1.1 K/mm3 (1.2-5.4) L 10/18/19 09:49 [place] # 0.9 K/mm3 (0.0-0.8) H 10/18/19 09:49 Eos # 0.2 K/mm3 (0.0-0.4) 10/18/19 09:49 Baso # 0.0 K/mm3 (0.0-0.1) 10/18/19 09:49 Add Manual Diff Complete 10/11/19 04:42 Total Counted 100 10/11/19 04:42 Seg Neutrophils % 75.7 % (40.0-70.0) H 10/18/19 09:49 Seg Neuts % (Manual) 93.0 % (40.0-70.0) H 10/11/19 04:42 Band Neutrophils % 1.0 % 10/11/19 04:42 Lymphocytes % (Manual) 2.0 % (13.4-35.0) L 10/11/19 04:42 Reactive Lymphs % (Man) 0 % 10/11/19 04:42 Monocytes % (Manual) 4.0 % (0.0-7.3) 10/11/19 04:42 Eosinophils % (Manual) 0 % (0.0-4.3) 10/11/19 04:42 Basophils % (Manual) 0 % (0.0-1.8) 10/11/19 04:42 Metamyelocytes % 0 % 10/11/19 04:42 Myelocytes % 0 % 10/11/19 04:42 Promyelocytes % 0 % 10/11/19 04:42 Blast Cells % 0 % 10/11/19 04:42 Nucleated RBC % Not Reportable 10/11/19 04:42 Seg Neutrophils # 6.9 K/mm3 (1.8-7.7) 10/18/19 09:49 Seg Neutrophils # Man 14.8 K/mm3 (1.8-7.7) H 10/11/19 04:42 Band Neutrophils # 0.2 K/mm3 10/11/19 04:42 Lymphocytes # (Manual) 0.3 K/mm3 (1.2-5.4) L 10/11/19 04:42 Abs React Lymphs (Man) 0.0 K/mm3 10/11/19 04:42 Monocytes # (Manual) 0.6 K/mm3 (0.0-0.8) 10/11/19 04:42 Eosinophils # (Manual) 0.0 K/mm3 (0.0-0.4) 10/11/19 04:42 Basophils # (Manual) 0.0 K/mm3 (0.0-0.1) 10/11/19 04:42 Metamyelocytes # 0.0 K/mm3 10/11/19 04:42 Myelocytes # 0.0 K/mm3 10/11/19 04:42 Promyelocytes # 0.0 K/mm3 10/11/19 04:42 Blast Cells # 0.0 K/mm3 10/11/19 04:42 WBC Morphology Not Reportable 10/11/19 04:42 Hypersegmented Neuts Not Reportable 10/11/19 04:42 Hyposegmented Neuts Not Reportable 10/11/19 04:42 Hypogranular Neuts Not Reportable 10/11/19 04:42 Smudge Cells Not Reportable 10/11/19 04:42 Toxic Granulation Not Reportable 10/11/19 04:42 Toxic Vacuolation Not Reportable 10/11/19 04:42 Dohle Bodies Not Reportable 10/11/19 04:42 Pelger-Huet Anomaly Not Reportable 10/11/19 04:42 Glenys Rods Not Reportable 10/11/19 04:42 Platelet Estimate Consistent w auto 10/11/19 04:42 Clumped Platelets Not Reportable 10/11/19 04:42 Plt Clumps, EDTA Not Reportable 10/11/19 04:42 Large Platelets Not Reportable 10/11/19 04:42 Giant Platelets Not Reportable 10/11/19 04:42 Platelet Satelliting Not Reportable 10/11/19 04:42 Plt Morphology Comment Not Reportable 10/11/19 04:42 RBC Morphology Not Reportable 10/11/19 04:42 Dimorphic RBCs Not Reportable 10/11/19 04:42 Polychromasia Not Reportable 10/11/19 04:42 Hypochromasia Not Reportable 10/11/19 04:42 Poikilocytosis Not Reportable 10/11/19 04:42 Anisocytosis Not Reportable 10/11/19 04:42 Microcytosis Not Reportable 10/11/19 04:42 Macrocytosis Not Reportable 10/11/19 04:42 Spherocytes Not Reportable 10/11/19 04:42 Pappenheimer Bodies Not Reportable 10/11/19 04:42 Sickle Cells Not Reportable 10/11/19 04:42 Target Cells Not Reportable 10/11/19 04:42 Tear Drop Cells Not Reportable 10/11/19 04:42 Ovalocytes Not Reportable 10/11/19 04:42 Helmet Cells Not Reportable 10/11/19 04:42 [place]-Summer Set Bodies Not Reportable 10/11/19 04:42 [place] Rings Not Reportable 10/11/19 04:42 [place] Cells Not Reportable 10/11/19 04:42 Bite Cells Not Reportable 10/11/19 04:42 Crenated Cell Not Reportable 10/11/19 04:42 Elliptocytes Rare 10/11/19 04:42 Acanthocytes (Spur) Not Reportable 10/11/19 04:42 Rouleaux Not Reportable 10/11/19 04:42 Hemoglobin C Crystals Not Reportable 10/11/19 04:42 Schistocytes Not Reportable 10/11/19 04:42 Malaria parasites Not Reportable 10/11/19 04:42 Robin Bodies Not Reportable 10/11/19 04:42 Hem Pathologist Commnt No 10/11/19 04:42 PT 16.1 Sec. (12.2-14.9) H 10/15/19 08:46 INR 1.32 (0.87-1.13) H 10/15/19 08:46 APTT 32.9 Sec. (24.2-36.6) 10/11/19 01:13 Sodium 144 mmol/L (137-145) 10/18/19 09:49 Potassium 3.3 mmol/L (3.6-5.0) L 10/18/19 09:49 Chloride 103.2 mmol/L (98-107) 10/18/19 09:49 Carbon Dioxide 25 mmol/L (22-30) 10/18/19 09:49 Anion Gap 17 mmol/L 10/18/19 09:49 BUN 44 mg/dL (9-20) H 10/18/19 09:49 Creatinine 2.2 mg/dL (0.8-1.5) H 10/18/19 09:49 Estimated GFR 29 ml/min 10/18/19 09:49 BUN/Creatinine Ratio 20 % 10/18/19 09:49 Glucose 104 mg/dL (75-100) H 10/18/19 09:49 POC Glucose 139 (70-105) H 10/13/19 18:18 Lactic Acid 3.20 mmol/L (0.7-2.0) H* 10/10/19 23:04 Calcium 7.8 mg/dL (8.4-10.2) L 10/18/19 09:49 Phosphorus 3.30 mg/dL (2.5-4.5) 10/18/19 09:49 Total Bilirubin 2.50 mg/dL (0.1-1.2) H 10/10/19 21:40 AST 39 units/L (5-40) 10/10/19 21:40 ALT 22 units/L (7-56) 10/10/19 21:40 Alkaline Phosphatase 102 units/L (35-129) 10/10/19 21:40 Ammonia 54.0 umol/L (25-60) 10/10/19 21:40 Lactate Dehydrogenase 331 units/L (91-180) H 10/14/19 10:56 Total Creatine Kinase 563 units/L (55-170) H 10/14/19 10:56 Troponin T 0.024 ng/mL (0.00-0.029) 10/10/19 21:40 Total Protein 7.6 g/dL (6.3-8.2) 10/10/19 21:40 Albumin 4.1 g/dL (3.9-5) 10/10/19 21:40 Albumin/Globulin Ratio 1.2 % 10/10/19 21:40 TSH 2.550 mlU/mL (0.270-4.200) 10/10/19 21:40 Urine Color Yellow (Yellow) 10/10/19 23:18 Urine Turbidity Clear (Clear) 10/10/19 23:18 Urine pH 6.0 (5.0-7.0) 10/10/19 23:18 Ur Specific [place] 1.015 (1.003-1.030) 10/10/19 23:18 Urine Protein 300 mg/dl mg/dL (Negative) 10/10/19 23:18 Urine Glucose (UA) 50 mg/dL (Negative) 10/10/19 23:18 Urine Ketones Neg mg/dL (Negative) 10/10/19 23:18 Urine Blood Sm (Negative) 10/10/19 23:18 Urine Nitrite Neg (Negative) 10/10/19 23:18 Urine Bilirubin Neg (Negative) 10/10/19 23:18 Urine Urobilinogen < 2.0 mg/dL (<2.0) 10/10/19 23:18 Ur Leukocyte Esterase Neg (Negative) 10/10/19 23:18 Urine WBC (Auto) 1.0 /HPF (0.0-6.0) 10/10/19 23:18 Urine RBC (Auto) 9.0 /HPF (0.0-6.0) 10/10/19 23:18 U Epithel Cells (Auto) < 1.0 /HPF (0-13.0) 10/10/19 23:18 Urine Bacteria (Auto) 1+ /HPF (Negative) 10/10/19 23:18 Hyaline Casts 6 /LPF 10/10/19 23:18 Urine Mucus Few /HPF 10/10/19 23:18 Syphilis IgG Antibody Reactive (NonReactive) A 10/15/19 14:53 Coronavirus (PCR) Negative (Negative) 10/11/19 11:14 Hepatitis A IgM Ab Non-reactive (NonReactive) 10/15/19 20:27 Hep Bs Antigen Reactive (Negative) 10/15/19 20:27 Hep B Core IgM Ab Non-reactive (NonReactive) 10/15/19 20:27 Hepatitis C Antibody Non-reactive (NonReactive) 10/15/19 20:27 HIV 1&2 Antibody Rapid Non react (Non React) 10/14/19 10:56 HIV P24 Antigen Non react (Non React) 10/14/19 10:56 Influenza A (Rapid) Negative (Negative) 10/10/19 22:25 Influenza B (Rapid) Negative (Negative) 10/10/19 22:25 Schistocytes Smear None seen 10/14/19 10:56 - Diagnostic Impressions Diagnostic Impressions: Echocardiogram 10/12/19 09:05 Transthoracic Echocardiogram Indication: Afib, HTN BP: 135/78 HR: 115 Conclusions *Global left ventricular systolic function is moderately decreased. *The estimated ejection fraction is 35-40%, but optimal assessment is limited by irregular heart rate. *Mild concentric left ventricular hypertrophy is observed. *The left and right atria are both severely dilated. *There is mild aortic regurgitation. *There is trace-mild mitral regurgitation. *There is moderate tricuspid regurgitation. *There is evidence of mild pulmonary hypertension. *The right ventricular systolic pressure is calculated at 28 mmHg. Findings Left Ventricle: The left ventricular chamber size is mildly dilated. Mild concentric left ventricular hypertrophy is observed. Global left ventricular systolic function is moderately decreased. The estimated ejection fraction is 35-40%. Left Atrium: The left atrium is severely dilated. Right Ventricle: The right ventricle is slightly dilated. Right Atrium: The right atrium is moderate to severely dilated. Aortic Valve: The aortic valve is trileaflet. The aortic valve leaflets are moderately thickened. There is mild aortic regurgitation. There is no evidence of aortic stenosis. Mitral Valve: The mitral valve leaflets are mildly thickened. There is trace of mitral regurgitation. There is no evidence of mitral stenosis. Tricuspid Valve: There is moderate tricuspid regurgitation. The right ventricular systolic pressure is calculated at 28 mmHg. There is evidence of mild pulmonary hypertension. Pulmonic Valve: There is mild pulmonic regurgitation. Pericardium: There is no pericardial effusion. Aorta: There is no dilatation of the aortic root. Venous: The inferior vena cava appears normal in size. Measurements Chambers 2D Name Value Normal Range IVSd (2D) 1.27 cm (0.6 - 1.1) LVPWd (2D) 1.06 cm (0.6 - 1.1) LVIDd (2D) 4.06 cm (3.7 - 5.6) LVIDs (2D) 2.91 cm (2 - 3.8) LV FS (2D) 28.16 % - EF Teichholz (2D) 54.96 % - Ao root diameter (2D) 2.83 cm (2 - 3.7) Volumes/Mass Name Value Normal Range LA ESV SP 4CH (A/L) 74.63 ml - LA ESV SP 2CH (A/L) 67.89 ml - LA ESV BP (A/L) 81.32 ml - LA ESV BP (A/L) index 54.21 ml/m2 - LA ESV SP 4CH (MOD) 65.06 ml - LA ESV SP 2CH (MOD) 65.08 ml - LA ESV BP (MOD) 74.22 ml - LA ESV BP (MOD) index 49.48 ml/m2 - LV EDV SP 4CH (MOD) 46.88 ml - LV ESV SP 4CH (MOD) 14.91 ml - EF SP 4CH (MOD) 68.19 % - LV EDV SP 2CH (MOD) 26.53 ml - LV ESV SP 2CH (MOD) 11.71 ml - EF SP 2CH (MOD) 55.86 % - LV EDV BP 37.95 ml - LV ESV BP 13.85 ml - BP EF (MOD) 63.51 % - Diastolic/Systolic Function Name Value Normal Range MV E-wave Vmax 0.8 m/sec - MV deceleration time 145.29 msec - Aortic Valve Name Value Normal Range AV Vmax 0.79 m/sec - AV VTI 9.87 cm - AV peak gradient 2.5 mmHg - AV mean gradient 0.94 mmHg - LVOT diameter 2.12 cm - LVOT Vmax 0.69 m/sec - LVOT VTI 12.18 cm - LVOT peak gradient 1.93 mmHg - LVOT mean gradient 1.04 mmHg - SV LVOT 42.84 ml - YAMILA (continuity Vmax) 3.08 cm2 - YAMILA (continuity VTI) 4.34 cm2 - AR PHT 498.2 msec - AR peak gradient 55.86 mmHg - Tricuspid Valve Name Value Normal Range TR Vmax 2.52 m/sec - TR peak gradient 25.41 mmHg - RAP 3 mmHg - RVSP 28 mmHg - Pulmonic Valve/Qp:Qs Name Value Normal Range PV Vmax 0.74 m/sec - PV VTI 10.83 cm - PV peak gradient 2.2 mmHg - PV mean gradient 1.08 mmHg - OK end-diastolic Vmax 1.28 m/sec - RVOT Vmax 0.01 m/sec - RVOT VTI 11.04 cm - RVOT peak gradient 2.38 mmHg - Miranda/IV: Voiding Method Incontinent IV Catheter Type [Left Hand] Peripheral IV IV Catheter Type [Right VAS Cath Internal Jugular] IV Catheter Type [Left Forearm Peripheral IV ] IV Catheter Type [Right INT / Saline Lock Forearm] Active Medications - Current Medications Current Medications: Generic Name Dose Route Start Last Admin Trade Name Freq PRN Reason Stop Dose Admin Acetaminophen 650 mg 10/11/19 02:03 Tylenol PO Q4H PRN Pain MILD(1-3)/Fever >100.5/ANNE Aspirin 81 mg 10/14/19 10:00 10/17/19 11:09 Halfprin Ec PO 81 mg QDAY NETO Administration Enoxaparin Sodium 30 mg 10/14/19 10:00 10/17/19 11:07 Enoxaparin SUB-Q 30 mg QDAY NETO Administration Hydralazine HCl 5 mg 10/11/19 08:00 Apresoline IV Q30MIN PRN Hypertension Sodium Chloride 100 mls @ 999 mls/hr 10/15/19 20:17 Nacl 0.9% IV EMILIE PRN Hypotension Dextrose 1,000 mls @ 125 mls/hr 10/16/19 10:00 10/18/19 05:39 D5w IV 125 mls/hr DIRECT NETO Administration Isosorbide Dinitrate/Hydralazine 1 each 10/13/19 14:00 10/18/19 05:39 Bidil 20/37.5mg PO 1 each Q8HR NETO Administration Labetalol HCl 10 mg 10/11/19 13:00 10/18/19 04:10 Labetalol IV 10 mg Q4H PRN Administration Hypertension Metoprolol Tartrate 50 mg 10/11/19 10:00 10/17/19 22:20 Metoprolol PO 50 mg BID NETO Administration Ondansetron HCl 4 mg 10/11/19 02:03 Zofran IV Q8H PRN Nausea And Vomiting Sodium Chloride 10 ml 10/11/19 10:00 10/17/19 22:00 Sodium Chloride Flush Syringe 10 Ml IV Not Given BID NETO Sodium Chloride 10 ml 10/11/19 02:03 Sodium Chloride Flush Syringe 10 Ml IV PRN PRN LINE FLUSH Nutrition/Malnutrition Assess - Dietary Evaluation Nutrition/Malnutrition Findings: Nutrition Notes Start: 10/11/19 13:24 Freq: Status: Active Protocol: Document 10/17/19 14:44 LM (Rec: 10/17/19 14:46 LM -[email or web address]) Nutrition Notes Initial or Follow up Brief Note Subjective/Other Information Pt remains NPO for MRI. Nutrition Intervention Follow-Up By: 10/18/19 Additional Comments F/U for diet advancment
--- NOTE | 2019-10-18 11:24 | Magnetic Resonance Report ---
MR brain wo con INDICATION / CLINICAL INFORMATION: 84 years Male; AMS. TECHNIQUE: Multiplanar, multisequence MR images of the brain were obtained. Significant motion artifact. COMPARISON: CT-10/11/2019 FINDINGS: BRAIN / INTRACRANIAL CONTENTS: There is a small focus of diffusion signal abnormality in small region of cortex, anterolaterally in the right temporal lobe. Post ictal change might be a consideration. T his would be an unusual pattern for ischemia related to stroke. Atrophy versus small subdural hygromas seen bilaterally, which should be of no clinical significance. Moderate cerebral and cerebellar atrophy. 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 Bilateral thal amic involvement is noted. There may have been an old, small, hemorrhagic infarct laterally in the ri ght thalamic region-best seen on gradient echo T2 imaging. There are moderate to extensive, confluent areas of increased signal intensity on FLAIR imaging in th e white matter of the cerebral hemispheres, as well as the gangliocapsular regions. Fairly extensive involvement is seen in the anterior temporal lobes-left greater than right. These are nonspecific fin dings and may be related to microangiopathy (hypertension, diabetes, atherosclerosis), given the tyrese ent's age. Pontine disease noted. Otherwise, no acute ischemia, acute hemorrhage, or hydrocephalus. CRANIOCERVICAL JUNCTION: No significant abnormality. VASCULAR FLOW-VOIDS: No significant abnormality. ORBITS: No significant abnormality of visualized orbits. SINUSES / MASTOIDS: Mild to moderate mucosal thickening seen in the ethmoids. There is also mild muco tony thickening in the mastoids. ADDITIONAL FINDINGS: None. IMPRESSION: 1. Small area of diffusion signal abnormality in the anterolateral cortex on the right, as described above. Post ictal change might be a consideration. Given the degree of signal abnormality in the ante rior temporal lobes, herpes encephalitis cannot entirely be excluded, but is unlikely. Please clinica lly correlate. Postcontrast imaging may be of benefit. 2. Fairly extensive white matter disease as described above. Chronic hypertension could certainly be considered. 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 Vasculitis or subcortical arteriosclerotic encephalopathy might be considered. Signer Name: Isidoro Vera MD, III Signed: 10/18/2019 11:20 AM Workstation Name: [employer]
[2019-10-18] MEDS: METOPROLOL TARTRATE 50 MG TAB PO SCH ×2 (11:41→21:18)
[2019-10-18] MEDS: ASPIRIN EC 81 MG TAB PO SCH (11:41)
[2019-10-18] MEDS: ENOXAPARIN 30 MG/0.3 ML INJ SUB-Q SCH (11:41)
--- NOTE | 2019-10-18 12:15 | Progress Note ---
Assessment and Plan Assessment: Acute renal failure, possible ischemic ATN from low BP, also possible TTP/HUS Sepsis Afib with RVR Hypotension Thrombocytopenia Hypokalemia Plan: Renal labs reviewed. Serum creatinine 2.2 today, yesterday's serum creatinine was 2.3. S/P second HD treatment yesterday No indication for HD today Awaiting hematology evaluation to r/o TMA, LDH was elevated ARABELLA, ANCA, SPEP, C3, C4, Anti-GBM, SPEP, urine eosinophils-pending Hypernatremia-Sodium improving, 144 today. On D5W@125 ml/hr, will decrease to 75 ml/hr Goal correction no more than 8-10 mmol/24hrs Hypokalemia- KCL 40 meq po x 1 Strict I&O monitoring Obtain daily weights Renally dose medications Avoid nephrotoxic agents Monitor electrolytes and renal function closely Subjective Date of service: 10/18/19 Principal diagnosis: PRIMO Interval history: Patient seen lying in bed. Resting. Objective - Vital Signs Vital signs: Vital Signs - 12hr 10/18/19 10/18/19 10/18/19 01:05 04:01 04:10 Temperature 97 F L 98.0 F Pulse Rate 86 104 H 104 H Respiratory 18 18 Rate Blood Pressure 164/85 164/85 Blood Pressure 133/81 [Right] O2 Sat by Pulse 95 98 Oximetry 10/18/19 10/18/19 10/18/19 05:38 05:39 07:56 Temperature 98.0 F Pulse Rate 93 H 93 H 95 H Respiratory 18 Rate Blood Pressure 153/101 153/101 137/84 Blood Pressure [Right] O2 Sat by Pulse 94 Oximetry 10/18/19 10/18/19 10/18/19 08:42 11:41 11:54 Temperature 97.9 F Pulse Rate 95 H 86 Respiratory 18 18 Rate Blood Pressure 137/84 111/60 Blood Pressure [Right] O2 Sat by Pulse 98 Oximetry - General Appearance General appearance: well-developed, appears stated age EENT: ATNC, PERRL Neck: no JVD, supple Respiratory: Present: Decreased Breath Sounds Cardiology: S1S2 Gastrointestinal: normoactive bowel sounds Integumentary: warm and dry Neurologic: alert and oriented x3 Musculoskeletal: other (No edema) - Lab 10/18/19 09:49 10/18/19 09:49 Most recent lab results Calcium 7.8 mg/dL (8.4-10.2) L 10/18/19 09:49 Phosphorus 3.30 mg/dL (2.5-4.5) 10/18/19 09:49 Medications & Allergies - Medications Allergies/Adverse Reactions: Allergies No Known Allergies Allergy (Unverified 10/10/19 21:31) Home Medications: Home Medications Medication Instructions Recorded Confirmed Last Taken Type Metoprolol 50 mg PO BID 10/10/19 10/18/19 Unknown History Active Medications: Generic Name Dose Route Start Last Admin Trade Name Freq PRN Reason Stop Dose Admin Acetaminophen 650 mg 10/11/19 02:03 Tylenol PO Q4H PRN Pain MILD(1-3)/Fever >100.5/ANNE Aspirin 81 mg 10/14/19 10:00 10/18/19 11:41 Halfprin Ec PO 81 mg QDAY NETO Administration Enoxaparin Sodium 30 mg 10/14/19 10:00 10/18/19 11:41 Enoxaparin SUB-Q 30 mg QDAY NETO Administration Hydralazine HCl 5 mg 10/11/19 08:00 Apresoline IV Q30MIN PRN Hypertension Sodium Chloride 100 mls @ 999 mls/hr 10/15/19 20:17 Nacl 0.9% IV EMILIE PRN Hypotension Dextrose 1,000 mls @ 125 mls/hr 10/16/19 10:00 10/18/19 05:39 D5w IV 125 mls/hr DIRECT NETO Administration Isosorbide Dinitrate/Hydralazine 1 each 10/13/19 14:00 10/18/19 05:39 Bidil 20/37.5mg PO 1 each Q8HR NETO Administration Labetalol HCl 10 mg 10/11/19 13:00 10/18/19 04:10 Labetalol IV 10 mg Q4H PRN Administration Hypertension Metoprolol Tartrate 50 mg 10/11/19 10:00 10/18/19 11:41 Metoprolol PO 50 mg BID NETO Administration Ondansetron HCl 4 mg 10/11/19 02:03 Zofran IV Q8H PRN Nausea And Vomiting Sodium Chloride 10 ml 10/11/19 10:00 10/18/19 11:45 Sodium Chloride Flush Syringe 10 Ml IV 10 ml BID NETO Administration Sodium Chloride 10 ml 10/11/19 02:03 Sodium Chloride Flush Syringe 10 Ml IV PRN PRN LINE FLUSH
[2019-10-18] MEDS ORDERED: POTASSIUM CHLORIDE ER 20 MEQ TAB PO ONE (13:00)
--- NOTE | 2019-10-18 14:25 | Progress Note ---
Assessment and Plan Cultures: 10/10/2019 blood culture: No growth A/P: 84-year-old male with hypertension, atrial fibrillation, dementia was brought into the emergency room with nausea, vomiting and decreased oral intake. He was also having fevers at home and his was seemingly unable to take care of him: #SIRS: Afebrile. No obvious acute infection identified. CXR without pneumonia. CT abdomen with mild nonspecific inflammation adjacent to the distal aorta. Blood cultures negative, UA without pyuria. Influenza rapid test negative, COVID-19 PCR negative, HIV negative, hepatitis C antibody negative. Hepatitis B surface antigen is reactive. #Acute encephalopathy: improving, RPR reactive 1:2. Should r/o neurosyphilis, HSV encephalitis, seizures. MRI brain shows small area of diffusion signal abnormality in the anterolateral cortex on the right ?post ictal. Given the degree of signal abnormality in the anterior temporal lobes, herpes encephalitis cannot entirely be excluded, but is unlikely. Fairly extensive white matter disease ?Vasculitis or subcortical arteriosclerotic encephalopathy #Chronic hepatitis B: Hepatitis B surface antigen is positive. AST, ALT are not elevated. Hep B PCR ordered. Considering his age, and no ALT elevation or obvious clinical evidence of cirrhosis or hepatic decompensation, doubt rn long term care Hep B treatment is going to be of much benefit. #Acute kidney injury: Creatinine rising compared to admission. Nephrology following. Improving. #Mild thrombocytopenia: fluctuating. #Afib with RPR #Hypernatremia: better #RPR reactive 1:2. Should r/o neurosyphilis Recs: Lumbar puncture today Should r/o neurosyphilis, HSV encephalitis Start acyclovir renally adjusted Hep B DNA PCR ordered -pending Obtain EEG Monitor mentation. Will follow. Darlene Shields MD Infectious Diseases Bone Process [employer] [facility] M [phone] O [phone] Subjective Date of service: 10/18/19 Principal diagnosis: PRIMO Interval history: More alert communicating no fever Objective - Exam Narrative Exam: General appearance: alert in NAD Eyes: anicteric sclerae, moist conjunctivae; no lid-lag; PERRLA HENT: Atraumatic; oropharynx limited Lungs: CTA CV: RRR no murmur Abdomen: Soft, non-tender Extremities: no edema, no cyanosis Skin: No rash. Psych:no agitated Neuro: alert non verbal - Constitutional Vitals: Vital Signs Temp Pulse Resp BP Pulse Ox 97.9 F 86 18 111/60 98 10/18/19 11:54 10/18/19 14:04 10/18/19 11:54 10/18/19 14:04 10/18/19 11:54 Temperature -Last 24 Hours Temperature 97.9 F Temperature 98.0 F Temperature 98.0 F Temperature 97 F Temperature 98.0 F - Labs CBC & Chem 7: 10/18/19 09:49 10/18/19 09:49 Labs: Abnormal lab results 10/18/19 10/18/19 Range/Units 09:49 09:49 MCV 99 H (84-94) fl MCH 34 H (28-32) pg Plt Count 76 L (140-440) K/mm3 Lymph % (Auto) 12.4 L (13.4-35.0) % Blanco % (Auto) 10.1 H (0.0-7.3) % Lymph # 1.1 L (1.2-5.4) K/mm3 Blanco # 0.9 H (0.0-0.8) K/mm3 Seg Neutrophils % 75.7 H (40.0-70.0) % Potassium 3.3 L (3.6-5.0) mmol/L BUN 44 H (9-20) mg/dL Creatinine 2.2 H (0.8-1.5) mg/dL Glucose 104 H (75-100) mg/dL Calcium 7.8 L (8.4-10.2) mg/dL
[2019-10-18] MEDS ORDERED: POTASSIUM CHLORIDE 20 MEQ PACKET PO ONE (15:00)
[2019-10-18] MEDS: ACYCLOVIR 1,000 MG in SODIUM CHLORIDE 0.9% 100 ML IV SCH (15:56)
--- NOTE | 2019-10-18 16:26 | Progress Note ---
Assessment and Plan Patient is an 84 y/o man w/ a h/o HTN, A-fib, who p/w altered mental status, nausea, vomiting, and was found to have failure to thrive, hypertensive urgency, A-fib w/ RVR, ARF requiring HD, SIRS, hypernatremia, lactic acidosis, leukocytosis. According to the patient's clinical findings, it is likely that he has metabolic encephalopathy, which is likely due to the aforementioned metabolic derangements. Plan: 1. Metabolic Encephalopathy - Likely in setting of hypertensive urgency, A-fib w/ RVR, ARF requiring HD, SIRS, hypernatremia, lactic acidosis, and leukocytosis. - Patient remains notably lethargic, Son states that he was at baseline of mental status and was not confused when he spoke to him over the phone. - CT head: Lt. frontal white matter hypodensity, age indeterminant. - MRI Brain: right temporal area of diffusion restriction, which may be T2 shine-through vs. post-ictal change vs. encephalitis. Unlikely to be infarct, however can not be completely ruled out, given patient has A-fib. - Per cardiology, patient is not a good candidate for anti-coagulation for A-fib at this time. - Echo: EF 35-40%, LA severely dilated. - ID team investigating for possible syphilis. - Covid-19 negative. - As patient was not found to have an infectious source as of yet, agree with ID that LP would aid in further investigating potential of meningo-encephalitis - Check EEG. This will have to be interpreted by in-house neurologist, as it can not be interpreted remotely via telemedicine since EEG recording machine only has local access. If in-house neurologist is not available to interpret EEG, would consider transferring patient to facility where EEG can be done. - Continue to correct metabolic abnormalities/infections per primary team - Will continue to monitor neurologic status. Thank you for allowing me to take part in the care of this patient. Dayne oPwer MD Neurology This clinical encounter was provided via live telemedicine portal. Consultative service was provided for neurology to support local providers. The Acute Teleneurology team should be contacted with any neurologic worsening or clinical changes, new test results, or new patient history that is reported to or discovered by the local team following completion of the teleneurology consultation, specifically that which has the potential to impact the consultative recommendations. Patient/Family was informed the Neurology Consult would happen via TeleHealth consult by way of interactive audio and video telecommunications and consented t o receiving care in this manner. Due to the potential for life-threatening deterioration due to underlying neurologic illness, and limited resources available for patient care, telemedicine was used as means of patient care. Telemedicine consultation is limited in the extent of physical exam that can be virtually provided. Time spent evaluating patient includes time for face to face visit via telemedicine, review of medical records, imaging studies and discussion of findings with providers, the patient and/or family. Subjective Date of service: 10/18/19 Principal diagnosis: Metabolic Encephalopathy Interval history: No acute events overnight. Patient remains lethargic. Objective - Exam Narrative Exam: Patient is alert, lethargic, oriented only to self, otherwise nonverbal, follows 1-step commands. EOMI, VFF, tongue midline, no facial weakness noted. Patient able to move all extremities anti-gravity and symmetrically. W/d to pain in all extremities. Exam limited due to telemedicine encounter. - Vital Sign Vital Signs - 12hr 10/18/19 10/18/19 10/18/19 05:38 05:39 07:56 Temperature 98.0 F Pulse Rate 93 H 93 H 95 H Respiratory 18 Rate Blood Pressure 153/101 153/101 137/84 O2 Sat by Pulse 94 Oximetry 10/18/19 10/18/19 10/18/19 08:42 11:41 11:54 Temperature 97.9 F Pulse Rate 95 H 86 Respiratory 18 18 Rate Blood Pressure 137/84 111/60 O2 Sat by Pulse 98 Oximetry 10/18/19 14:04 Temperature Pulse Rate 86 Respiratory Rate Blood Pressure 111/60 O2 Sat by Pulse Oximetry - Laboratory Findings CBC and BMP: 10/18/19 09:49 10/18/19 09:49 Abnormal Lab Findings: Abnormal Labs 10/10/19 10/10/19 10/10/19 21:40 21:40 21:40 WBC 18.1 H Hgb 15.4 H Hct 47.7 H MCV 101 H MCH 33 H MCHC Plt Count 132 L Lymph % (Auto) 5.3 L Dukes % (Auto) Lymph # 1.0 L Dukes # 1.3 H Seg Neutrophils % 86.9 H Seg Neuts % (Manual) Lymphocytes % (Manual) Seg Neutrophils # 15.7 H Seg Neutrophils # Man Lymphocytes # (Manual) PT INR Sodium Potassium Chloride Carbon Dioxide 17 L BUN 39 H Creatinine Glucose 139 H POC Glucose Lactic Acid 2.90 H* Calcium Phosphorus Total Bilirubin 2.50 H Lactate Dehydrogenase Total Creatine Kinase Syphilis IgG Antibody 10/10/19 10/10/19 10/11/19 21:40 23:04 01:13 WBC Hgb Hct MCV MCH MCHC Plt Count Lymph % (Auto) Dukes % (Auto) Lymph # Dukes # Seg Neutrophils % Seg Neuts % (Manual) Lymphocytes % (Manual) Seg Neutrophils # Seg Neutrophils # Man Lymphocytes # (Manual) PT 15.1 H INR 1.14 H 1.18 H Sodium Potassium Chloride Carbon Dioxide BUN Creatinine Glucose POC Glucose Lactic Acid 3.20 H* Calcium Phosphorus Total Bilirubin Lactate Dehydrogenase Total Creatine Kinase Syphilis IgG Antibody 10/11/19 10/11/19 10/12/19 04:42 04:42 14:04 WBC 15.9 H Hgb 15.5 H Hct 46.6 H MCV 101 H MCH 33 H MCHC Plt Count 81 L Lymph % (Auto) Dukes % (Auto) Lymph # Dukes # Seg Neutrophils % Seg Neuts % (Manual) 93.0 H Lymphocytes % (Manual) 2.0 L Seg Neutrophils # Seg Neutrophils # Man 14.8 H Lymphocytes # (Manual) 0.3 L PT INR Sodium Potassium Chloride Carbon Dioxide 21 L BUN 38 H Creatinine Glucose 183 H POC Glucose 140 H Lactic Acid Calcium Phosphorus Total Bilirubin Lactate Dehydrogenase Total Creatine Kinase Syphilis IgG Antibody 10/13/19 10/13/19 10/13/19 07:37 07:37 18:18 WBC 14.4 H Hgb Hct MCV 100 H MCH 34 H MCHC Plt Count 86 L Lymph % (Auto) 6.6 L Dukes % (Auto) 8.2 H Lymph # 0.9 L Dukes # 1.2 H Seg Neutrophils % 84.9 H Seg Neuts % (Manual) Lymphocytes % (Manual) Seg Neutrophils # 12.2 H Seg Neutrophils # Man Lymphocytes # (Manual) PT INR Sodium Potassium Chloride 108.0 H Carbon Dioxide 14 L D BUN 100 H Creatinine 3.7 H D Glucose 148 H POC Glucose 139 H Lactic Acid Calcium Phosphorus Total Bilirubin Lactate Dehydrogenase Total Creatine Kinase Syphilis IgG Antibody 10/14/19 10/14/19 10/14/19 06:16 06:16 10:56 WBC Hgb Hct MCV 100 H MCH 34 H MCHC Plt Count 90 L Lymph % (Auto) 5.7 L Dukes % (Auto) Lymph # 0.6 L Dukes # Seg Neutrophils % 88.4 H Seg Neuts % (Manual) Lymphocytes % (Manual) Seg Neutrophils # 8.6 H Seg Neutrophils # Man Lymphocytes # (Manual) PT INR Sodium 151 H Potassium 3.5 L Chloride 115.7 H Carbon Dioxide 14 L BUN 121 H Creatinine 4.1 H Glucose 162 H POC Glucose Lactic Acid Calcium 7.9 L Phosphorus Total Bilirubin Lactate Dehydrogenase 331 H Total Creatine Kinase 563 H Syphilis IgG Antibody 10/15/19 10/15/19 10/15/19 05:18 05:18 08:46 WBC Hgb Hct MCV 99 H MCH 34 H MCHC Plt Count 98 L Lymph % (Auto) 6.4 L Dukes % (Auto) Lymph # 0.6 L Dukes # Seg Neutrophils % 86.8 H Seg Neuts % (Manual) Lymphocytes % (Manual) Seg Neutrophils # Seg Neutrophils # Man Lymphocytes # (Manual) PT 16.1 H INR 1.32 H Sodium 158 H Potassium 3.2 L Chloride 117.4 H Carbon Dioxide 20 L BUN 128 H Creatinine 3.8 H Glucose 120 H POC Glucose Lactic Acid Calcium Phosphorus 5.10 H Total Bilirubin Lactate Dehydrogenase Total Creatine Kinase Syphilis IgG Antibody 10/15/19 10/16/19 10/16/19 14:53 05:50 05:50 WBC Hgb Hct MCV 100 H MCH 35 H MCHC 35 H Plt Count 99 L Lymph % (Auto) 8.3 L Dukes % (Auto) 7.8 H Lymph # 0.7 L Dukes # Seg Neutrophils % 82.3 H Seg Neuts % (Manual) Lymphocytes % (Manual) Seg Neutrophils # Seg Neutrophils # Man Lymphocytes # (Manual) PT INR Sodium 161 H* Potassium 3.3 L Chloride 121.2 H Carbon Dioxide BUN 134 H Creatinine 4.1 H Glucose 126 H POC Glucose Lactic Acid Calcium 8.0 L Phosphorus 5.80 H Total Bilirubin Lactate Dehydrogenase Total Creatine Kinase Syphilis IgG Antibody Reactive A 10/16/19 10/17/19 10/17/19 20:28 05:27 05:27 WBC Hgb Hct MCV 100 H MCH 34 H MCHC Plt Count 83 L Lymph % (Auto) 12.5 L Dukes % (Auto) 10.7 H Lymph # 1.0 L Dukes # 0.9 H Seg Neutrophils % 75.7 H Seg Neuts % (Manual) Lymphocytes % (Manual) Seg Neutrophils # Seg Neutrophils # Man Lymphocytes # (Manual) PT INR Sodium 151 H D 151 H Potassium 3.0 L Chloride 107.8 H Carbon Dioxide BUN 54 H Creatinine 2.3 H Glucose 156 H POC Glucose Lactic Acid Calcium 7.8 L Phosphorus Total Bilirubin Lactate Dehydrogenase Total Creatine Kinase Syphilis IgG Antibody 10/18/19 10/18/19 09:49 09:49 WBC Hgb Hct MCV 99 H MCH 34 H MCHC Plt Count 76 L Lymph % (Auto) 12.4 L Dukes % (Auto) 10.1 H Lymph # 1.1 L Dukes # 0.9 H Seg Neutrophils % 75.7 H Seg Neuts % (Manual) Lymphocytes % (Manual) Seg Neutrophils # Seg Neutrophils # Man Lymphocytes # (Manual) PT INR Sodium Potassium 3.3 L Chloride Carbon Dioxide BUN 44 H Creatinine 2.2 H Glucose 104 H POC Glucose Lactic Acid Calcium 7.8 L Phosphorus Total Bilirubin Lactate Dehydrogenase Total Creatine Kinase Syphilis IgG Antibody
[2019-10-19] MEDS: ISOSORB DINIT/HYDRALAZINE 20-37.5MG TAB PO SCH ×3 (05:36→22:55)
[2019-10-19] MEDS: DEXTROSE 5% IN WATER 1,000 ML IV SCH (05:37)
[2019-10-19 05:53] LABS: Basophils % (Auto) 0.2 % (0.0-1.8); Eosinophils # (Auto) 0.2 K/mm3 (0.0-0.4); Eosinophils % (Auto) 2.1 % (0.0-4.3); Hematocrit 32.6 % (35.5-45.6); Hemoglobin 11.1 gm/dl (11.8-15.2); Lymphocytes # (Auto) 1.7 K/mm3 (1.2-5.4); Lymphocytes % (Auto) 18.5 % (13.4-35.0); Mean Corpuscular HGB Conc 34 % (32-34); Mean Corpuscular Volume 100 fl (84-94); Monocytes # (Auto) 0.8 K/mm3 (0.0-0.8); Monocytes % (Auto) 8.9 % (0.0-7.3); Red Blood Count 3.27 M/mm3 (3.65-5.03); Red Cell Distribution Width 13.4 % (13.2-15.2)
[2019-10-19 05:55] LABS: Platelet Count 91 K/mm3 (140-440)
[2019-10-19 06:04] LABS: Calcium 7.4 mg/dL (8.4-10.2)
--- NOTE | 2019-10-19 08:46 | Progress Note ---
Assessment and Plan Assessment and plan: Toxic metabolic encephalopathy. Treat underlying causes SIRS No obvious infection Chest x-ray negative, CT of the abdomen showed some mild nonspecific inflammation near the distal aorta. ID following A. fib with RVR, status post conversion DC heparin drip, patient thrombocytopenic cardiology following Acute metabolic encephalopathy altered mental status,confusion Chronic hepatitis B. hepatitis B surface antigen positive. LFTs not elevated. 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 Slight improvement. Cr 3.[address] Oliveira, hematology for low plaletels but he says he does not work here anymore. called and updated daughter on [phone] 10/16/19 patient presented with alterd mental status,nausea,vomiting. Found to have PRIMO due to ATN, thrombocytopenia. Cr worsening. Discussed with Nephrology yesterday. Plan to initiate dialysis if he gets worse. labs show Syphilis IgG antibody positive. ID to evaluate. 10/17/2019. Follow-up hepatitis B PCR. Check MRI of brain. Follow-up RPR with titer to determine active syphilis. 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 If mental status does not improve consider LP. 10/18/2019. Neurology evaluated the patient and diagnosed with metabolic encephalopathy with etiology likely secondary to hypertensive urgency, A-fib w/ RVR, ARF requiring HD, SIRS, hypernatremia, lactic acidosis, and leukocytosis. ID team investigating for possible syphilis. As patient was not found to have an infectious source as of yet, agree with ID that MRI brain would aid in further investigating potential of meningo-encephalitis, and to rule out any intracranial pathology contributing to current mental status. If patient's mental status does not continue to improve as metabolic/infectious abnormalities are corrected, then will consider LP/CSF studies. 10/19/2019. Neurology evaluated the patient and diagnosed with metabolic encephalopathy with etiology likely secondary to hypertensive urgency, A-fib w/ RVR, ARF requiring HD, SIRS, hypernatremia, lactic acidosis, and leukocytosis. CT head: Lt. frontal white matter hypodensity, age indeterminant. MRI Brain: right temporal area of diffusion restriction, which may be T2 shine-through vs. post-ictal change vs. encephalitis. Unlikely to be infarct, however can not be completely ruled out, given patient has A-fib. Echo: EF 35-40%, LA severely dilated. EEG pending. 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 Follow-up lumbar puncture. History Interval history: No new issues overnight Hospitalist Physical - Constitutional Vitals: Temp Pulse Resp BP Pulse Ox 97.8 F 120 H 18 132/76 96 10/19/19 04:10 10/19/19 05:36 10/19/19 04:10 10/19/19 05:36 10/19/19 04:00 General appearance: Present: no acute distress - EENT Eyes: Present: PERRL, EOM intact ENT: hearing intact, clear oral mucosa, dentition normal - Neck Neck: Present: supple, normal ROM - Respiratory Respiratory effort: normal Respiratory: bilateral: CTA - Cardiovascular Rhythm: regular Heart Sounds: Present: S1 & S2. Absent: gallop, rub - Extremities Extremities: no ischemia, No edema, Full ROM - Abdominal General gastrointestinal: soft, non-tender, non-distended, normal bowel sounds - Integumentary Integumentary: Present: clear, warm, dry - Neurologic Neurologic: CNII-XII intact, moves all extremities Results - Labs CBC & Chem 7: 10/19/19 05:22 10/19/19 05:22 Labs: Laboratory Last Values WBC 9.1 K/mm3 (4.5-11.0) 10/19/19 05: RBC 3.27 M/mm3 (3.65-5.03) L 10/19/19 05:22 Hgb 11.1 gm/dl (11.8-15.2) L 10/19/19 05:22 Hct 32.6 % (35.5-45.6) L 10/19/19 05:22 MCV 100 fl (84-94) H 10/19/19 05:22 MCH 34 pg (28-32) H 10/19/19 05:22 MCHC 34 % (32-34) 10/19/19 05:22 RDW 13.4 % (13.2-15.2) 10/19/19 05:22 Plt Count 91 K/mm3 (140-440) L 10/19/19 05:22 Lymph % (Auto) 18.5 % (13.4-35.0) 10/19/19 05:22 Barber % (Auto) 8.9 % (0.0-7.3) H 10/19/19 05:22 Eos % (Auto) 2.1 % (0.0-4.3) 10/19/19 05:22 Baso % (Auto) 0.2 % (0.0-1.8) 10/19/19 05:22 Lymph # 1.7 K/mm3 (1.2-5.4) 10/19/19 05:22 Barber # 0.8 K/mm3 (0.0-0.8) 10/19/19 05:22 Eos # 0.2 K/mm3 (0.0-0.4) 10/19/19 05:22 Baso # 0.0 K/mm3 (0.0-0.1) 10/19/19 05:22 Add Manual Diff Complete 10/11/19 04:42 Total Counted 100 10/11/19 04:42 Seg Neutrophils % 70.3 % (40.0-70.0) H 10/19/19 05:22 Seg Neuts % (Manual) 93.0 % (40.0-70.0) H 10/11/19 04:42 Band Neutrophils % 1.0 % 10/11/19 04:42 Lymphocytes % (Manual) 2.0 % (13.4-35.0) L 10/11/19 04:42 Reactive Lymphs % (Man) 0 % 10/11/19 04:42 Monocytes % (Manual) 4.0 % (0.0-7.3) 10/11/19 04:42 Eosinophils % (Manual) 0 % (0.0-4.3) 10/11/19 04:42 Basophils % (Manual) 0 % (0.0-1.8) 10/11/19 04:42 Metamyelocytes % 0 % 10/11/19 04:42 Myelocytes % 0 % 10/11/19 04:42 Promyelocytes % 0 % 10/11/19 04:42 Blast Cells % 0 % 10/11/19 04:42 Nucleated RBC % Not Reportable 10/11/19 04:42 Seg Neutrophils # 6.4 K/mm3 (1.8-7.7) 10/19/19 05:22 Seg Neutrophils # Man 14.8 K/mm3 (1.8-7.7) H 10/11/19 04:42 Band Neutrophils # 0.2 K/mm3 10/11/19 04:42 Lymphocytes # (Manual) 0.3 K/mm3 (1.2-5.4) L 10/11/19 04:42 Abs React Lymphs (Man) 0.0 K/mm3 10/11/19 04:42 Monocytes # (Manual) 0.6 K/mm3 (0.0-0.8) 10/11/19 04:42 Eosinophils # (Manual) 0.0 K/mm3 (0.0-0.4) 10/11/19 04:42 Basophils # (Manual) 0.0 K/mm3 (0.0-0.1) 10/11/19 04:42 Metamyelocytes # 0.0 K/mm3 10/11/19 04:42 Myelocytes # 0.0 K/mm3 10/11/19 04:42 Promyelocytes # 0.0 K/mm3 10/11/19 04:42 Blast Cells # 0.0 K/mm3 10/11/19 04:42 WBC Morphology Not Reportable 10/11/19 04:42 Hypersegmented Neuts Not Reportable 10/11/19 04:42 Hyposegmented Neuts Not Reportable 10/11/19 04:42 Hypogranular Neuts Not Reportable 10/11/19 04:42 Smudge Cells Not Reportable 10/11/19 04:42 Toxic Granulation Not Reportable 10/11/19 04:42 Toxic Vacuolation Not Reportable 10/11/19 04:42 Dohle Bodies Not Reportable 10/11/19 04:42 Pelger-Huet Anomaly Not Reportable 10/11/19 04:42 Glenys Rods Not Reportable 10/11/19 04:42 Platelet Estimate Consistent w auto 10/11/19 04:42 Clumped Platelets Not Reportable 10/11/19 04:42 Plt Clumps, EDTA Not Reportable 10/11/19 04:42 Large Platelets Not Reportable 10/11/19 04:42 Giant Platelets Not Reportable 10/11/19 04:42 Platelet Satelliting Not Reportable 10/11/19 04:42 Plt Morphology Comment Not Reportable 10/11/19 04:42 RBC Morphology Not Reportable 10/11/19 04:42 Dimorphic RBCs Not Reportable 10/11/19 04:42 Polychromasia Not Reportable 10/11/19 04:42 Hypochromasia Not Reportable 10/11/19 04:42 Poikilocytosis Not Reportable 10/11/19 04:42 Anisocytosis Not Reportable 10/11/19 04:42 Microcytosis Not Reportable 10/11/19 04:42 Macrocytosis Not Reportable 10/11/19 04:42 Spherocytes Not Reportable 10/11/19 04:42 Pappenheimer Bodies Not Reportable 10/11/19 04:42 Sickle Cells Not Reportable 10/11/19 04:42 Target Cells Not Reportable 10/11/19 04:42 Tear Drop Cells Not Reportable 10/11/19 04:42 Ovalocytes Not Reportable 10/11/19 04:42 Helmet Cells Not Reportable 10/11/19 04:42 [place] Bodies Not Reportable 10/11/19 04:42 [place] Rings Not Reportable 10/11/19 04:42 Paula Cells Not Reportable 10/11/19 04:42 Bite Cells Not Reportable 10/11/19 04:42 Crenated Cell Not Reportable 10/11/19 04:42 Elliptocytes Rare 10/11/19 04:42 Acanthocytes (Spur) Not Reportable 10/11/19 04:42 Rouleaux Not Reportable 10/11/19 04:42 Hemoglobin C Crystals Not Reportable 10/11/19 04:42 Schistocytes Not Reportable 10/11/19 04:42 Malaria parasites Not Reportable 10/11/19 04:42 Robin Bodies Not Reportable 10/11/19 04:42 Hem Pathologist Commnt No 10/11/19 04:42 PT 16.1 Sec. (12.2-14.9) H 10/15/19 08:46 INR 1.32 (0.87-1.13) H 10/15/19 08:46 APTT 32.9 Sec. (24.2-36.6) 10/11/19 01:13 Sodium 142 mmol/L (137-145) 10/19/19 05:22 Potassium 3.3 mmol/L (3.6-5.0) L 10/19/19 05:22 Chloride 106.7 mmol/L (98-107) 10/19/19 05:22 Carbon Dioxide 21 mmol/L (22-30) L 10/19/19 05:22 Anion Gap 18 mmol/L 10/19/19 05:22 BUN 71 mg/dL (9-20) H 10/19/19 05:22 Creatinine 2.6 mg/dL (0.8-1.5) H 10/19/19 05:22 Estimated GFR 24 ml/min 10/19/19 05:22 BUN/Creatinine Ratio 27 % 10/19/19 05:22 Glucose 133 mg/dL (75-100) H 10/19/19 05:22 POC Glucose 139 (70-105) H 10/13/19 18:18 Lactic Acid 3.20 mmol/L (0.7-2.0) H* 10/10/19 23:04 Calcium 7.4 mg/dL (8.4-10.2) L 10/19/19 05:22 Phosphorus 2.90 mg/dL (2.5-4.5) 10/19/19 05:22 Total Bilirubin 2.50 mg/dL (0.1-1.2) H 10/10/19 21:40 AST 39 units/L (5-40) 10/10/19 21:40 ALT 22 units/L (7-56) 10/10/19 21:40 Alkaline Phosphatase 102 units/L (35-129) 10/10/19 21:40 Ammonia 54.0 umol/L (25-60) 10/10/19 21:40 Lactate Dehydrogenase 401 units/L (91-180) H 10/19/19 05:22 Total Creatine Kinase 563 units/L (55-170) H 10/14/19 10:56 Troponin T 0.024 ng/mL (0.00-0.029) 10/10/19 21:40 Total Protein 7.6 g/dL (6.3-8.2) 10/10/19 21:40 Albumin 4.1 g/dL (3.9-5) 10/10/19 21:40 Albumin/Globulin Ratio 1.2 % 10/10/19 21:40 TSH 2.550 mlU/mL (0.270-4.200) 10/10/19 21:40 Urine Color Yellow (Yellow) 10/10/19 23:18 Urine Turbidity Clear (Clear) 10/10/19 23:18 Urine pH 6.0 (5.0-7.0) 10/10/19 23:18 Ur Specific [place] 1.015 (1.003-1.030) 10/10/19 23:18 Urine Protein 300 mg/dl mg/dL (Negative) 10/10/19:18 Urine Glucose (UA) 50 mg/dL (Negative) 10/10/19:18 Urine Ketones Neg mg/dL (Negative) 10/10/19 23: Urine Blood Sm (Negative) 10/10/19 23: Urine Nitrite Neg (Negative) 10/10/19 23: Urine Bilirubin Neg (Negative) 10/10/19 23:18 Urine Urobilinogen < 2.0 mg/dL (<2.0) 10/10/19 23:18 Ur Leukocyte Esterase Neg (Negative) 10/10/19 23:18 Urine WBC (Auto) 1.0 /HPF (0.0-6.0) 10/10/19 23:18 Urine RBC (Auto) 9.0 /HPF (0.0-6.0) 10/10/19 23:18 U Epithel Cells (Auto) < 1.0 /HPF (0-13.0) 10/10/19 23:18 Urine Bacteria (Auto) 1+ /HPF (Negative) 10/10/19 23:18 Hyaline Casts 6 /LPF 10/10/19 23:18 Urine Mucus Few /HPF 10/10/19 23:18 Syphilis IgG Antibody Reactive (NonReactive) A 10/15/19 14:53 RPR Titer 1:2 10/18/19 Unknown Coronavirus (PCR) Negative (Negative) 10/11/19 11:14 Hepatitis A IgM Ab Non-reactive (NonReactive) 10/15/19 20 Hep Bs Antigen Reactive (Negative) 10/15/19 20: Hep B Core IgM Ab Non-reactive (NonReactive) 10/15/19 20:27 Hepatitis C Antibody Non-reactive (NonReactive) 10/15/19 20: HIV 1&2 Antibody Rapid Non react (Non React) 10/14/19 10:56 HIV P24 Antigen Non react (Non React) 10/14/19 10:56 Influenza A (Rapid) Negative (Negative) 10/10/19 22:25 Influenza B (Rapid) Negative (Negative) 10/10/19 22:25 Schistocytes Smear None seen 10/14/19 10:56 - Diagnostic Impressions Diagnostic Impressions: Echocardiogram 10/12/19 09:05 Transthoracic Echocardiogram Indication: Afib, HTN BP: 135/78 HR: 115 Conclusions *Global left ventricular systolic function is moderately decreased. *The estimated ejection fraction is 35-40%, but optimal assessment is limited by irregular heart rate. *Mild concentric left ventricular hypertrophy is observed. *The left and right atria are both severely dilated. *There is mild aortic regurgitation. *There is trace-mild mitral regurgitation. *There is moderate tricuspid regurgitation. *There is evidence of mild pulmonary hypertension. *The right ventricular systolic pressure is calculated at 28 mmHg. Findings Left Ventricle: The left ventricular chamber size is mildly dilated. Mild concentric left ventricular hypertrophy is observed. Global left ventricular systolic function is moderately decreased. The estimated ejection fraction is 35-40%. Left Atrium: The left atrium is severely dilated. Right Ventricle: The right ventricle is slightly dilated. Right Atrium: The right atrium is moderate to severely dilated. Aortic Valve: The aortic valve is trileaflet. The aortic valve leaflets are moderately thickened. There is mild aortic regurgitation. There is no evidence of aortic stenosis. Mitral Valve: The mitral valve leaflets are mildly thickened. There is trace of mitral regurgitation. There is no evidence of mitral stenosis. Tricuspid Valve: There is moderate tricuspid regurgitation. The right ventricular systolic pressure is calculated at 28 mmHg. There is evidence of mild pulmonary hypertension. Pulmonic Valve: There is mild pulmonic regurgitation. Pericardium: There is no pericardial effusion. Aorta: There is no dilatation of the aortic root. Venous: The inferior vena cava appears normal in size. Measurements Chambers 2D Name Value Normal Range IVSd (2D) 1.27 cm (0.6 - 1.1) LVPWd (2D) 1.06 cm (0.6 - 1.1) LVIDd (2D) 4.06 cm (3.7 - 5.6) LVIDs (2D) 2.91 cm (2 - 3.8) LV FS (2D) 28.16 % - EF Teichholz (2D) 54.96 % - Ao root diameter (2D) 2.83 cm (2 - 3.7) Volumes/Mass Name Value Normal Range LA ESV SP 4CH (A/L) 74.63 ml - LA ESV SP 2CH (A/L) 67.89 ml - LA ESV BP (A/L) 81.32 ml - LA ESV BP (A/L) index 54.21 ml/m2 - LA ESV SP 4CH (MOD) 65.06 ml - LA ESV SP 2CH (MOD) 65.08 ml - LA ESV BP (MOD) 74.22 ml - LA ESV BP (MOD) index 49.48 ml/m2 - LV EDV SP 4CH (MOD) 46.88 ml - LV ESV SP 4CH (MOD) 14.91 ml - EF SP 4CH (MOD) 68.19 % - LV EDV SP 2CH (MOD) 26.53 ml - LV ESV SP 2CH (MOD) 11.71 ml - EF SP 2CH (MOD) 55.86 % - LV EDV BP 37.95 ml - LV ESV BP 13.85 ml - BP EF (MOD) 63.51 % - Diastolic/Systolic Function Name Value Normal Range MV E-wave Vmax 0.8 m/sec - MV deceleration time 145.29 msec - Aortic Valve Name Value Normal Range AV Vmax 0.79 m/sec - AV VTI 9.87 cm - AV peak gradient 2.5 mmHg - AV mean gradient 0.94 mmHg - LVOT diameter 2.12 cm - LVOT Vmax 0.69 m/sec - LVOT VTI 12.18 cm - LVOT peak gradient 1.93 mmHg - LVOT mean gradient 1.04 mmHg - SV LVOT 42.84 ml - YAMILA (continuity Vmax) 3.08 cm2 - YAMILA (continuity VTI) 4.34 cm2 - AR PHT 498.2 msec - AR peak gradient 55.86 mmHg - Tricuspid Valve Name Value Normal Range TR Vmax 2.52 m/sec - TR peak gradient 25.41 mmHg - RAP 3 mmHg - RVSP 28 mmHg - Pulmonic Valve/Qp:Qs Name Value Normal Range PV Vmax 0.74 m/sec - PV VTI 10.83 cm - PV peak gradient 2.2 mmHg - PV mean gradient 1.08 mmHg - WV end-diastolic Vmax 1.28 m/sec - RVOT Vmax 0.01 m/sec - RVOT VTI 11.04 cm - RVOT peak gradient 2.38 mmHg - Miranda/IV: Voiding Method Condom Catheter IV Catheter Type [Left Hand] Peripheral IV IV Catheter Type [Right VAS Cath Internal Jugular] IV Catheter Type [Left Forearm Peripheral IV ] IV Catheter Type [Right INT / Saline Lock Forearm] Active Medications - Current Medications Current Medications: Generic Name Dose Route Start Last Admin Trade Name Freq PRN Reason Stop Dose Admin Acetaminophen 650 mg 10/11/19 02:03 Tylenol PO Q4H PRN Pain MILD(1-3)/Fever >100.5/ANNE Aspirin 81 mg 10/14/19 10:00 10/18/19 11:41 Halfprin Ec PO 81 mg QDAY NETO Administration Enoxaparin Sodium 30 mg 10/14/19 10:00 10/18/19 11:41 Enoxaparin SUB-Q 30 mg QDAY NETO Administration Hydralazine HCl 5 mg 10/11/19 08:00 Apresoline IV Q30MIN PRN Hypertension Sodium Chloride 100 mls @ 999 mls/hr 10/15/19 20:17 Nacl 0.9% IV EMILIE PRN Hypotension Dextrose 1,000 mls @ 75 mls/hr 10/16/19 10:00 10/19/19 05:37 D5w IV 125 mls/hr DIRECT NETO Administration Acyclovir 500 mg/ Sodium 110 mls @ 100 mls/hr 10/19/19 10:00 Chloride IV Q24HR [facility] Protocol Isosorbide Dinitrate/Hydralazine 1 each 10/13/19 14:00 10/19/19 05:36 Bidil 20/37.5mg PO 1 each Q8HR NETO Administration Labetalol HCl 10 mg 10/11/19 13:00 10/18/19 04:10 Labetalol IV 10 mg Q4H PRN Administration Hypertension Metoprolol Tartrate 50 mg 10/11/19 10:00 10/18/19 21:18 Metoprolol PO Not Given BID NETO Ondansetron HCl 4 mg 10/11/19 02:03 Zofran IV Q8H PRN Nausea And Vomiting Sodium Chloride 10 ml 10/11/19 10:00 10/18/19 21:18 Sodium Chloride Flush Syringe 10 Ml IV 10 ml BID NETO Administration Sodium Chloride 10 ml 10/11/19 02:03 Sodium Chloride Flush Syringe 10 Ml IV PRN PRN LINE FLUSH Nutrition/Malnutrition Assess - Dietary Evaluation Nutrition/Malnutrition Findings: Nutrition Notes Start: 10/11/19 13:24 Freq: Status: Active Protocol: Document 10/18/19 15:42 COOPER (Rec: 10/18/19 15:44 COOPER [email or web address]) Nutrition Notes Initial or Follow up Brief Note Current Diet NPO Subjective/Other Information Pt remains NPO for lumbar puncture tomorrow. Nutrition Intervention Follow-Up By: 10/19/19 Additional Comments F/U: diet advancement
[2019-10-19] MEDS ORDERED: SODIUM CHLORIDE 0.9% 100 ML IV PRN (09:00)
[2019-10-19] MEDS: ENOXAPARIN 30 MG/0.3 ML INJ SUB-Q SCH (09:01)
[2019-10-19] MEDS: ASPIRIN EC 81 MG TAB PO SCH (09:01)
--- NOTE | 2019-10-19 09:16 | Progress Note ---
Assessment and Plan Atrial fibrillation, persistent on metoprolol for rate control Pt has been deemed to be a poor candidate for senior care anticoagulation given overall frailty and thrombocytopenia Acute renal failure -initiated on dialysis Hypertension Dilated Cardiomyopathy, uncertain duration an echo this admission shows atrial enlargement, decreased left ventricular systolic function, ejection fraction 35-40%. Continue medical therapy for dilated cardiomyopathy and rate controlling agents for atrial fibrillation that persists. Otherwise, conservative cardiac management. Subjective Date of service: 10/19/19 Principal diagnosis: Metabolic Encephalopathy Interval history: No interval cardiac changes. Objective Vital Signs Temp Pulse Pulse Resp BP Pulse Ox 10/19/19 05:36 120 H 132/76 10/19/19 04:10 97.8 F 18 132/76 10/19/19 04:00 89 96 10/18/19 23:35 96 H 100 10/18/19 23:31 97.8 F 18 107/70 10/18/19 22:00 92 H 10/18/19 21:18 80 87/63 10/18/19 21:17 80 87/63 10/18/19 20:00 92 H 70 98 10/18/19 19:42 97.9 F 18 87/63 10/18/19 15:47 98.0 F 76 18 141/87 99 10/18/19 14:04 86 111/60 10/18/19 11:54 97.9 F 86 18 111/60 98 10/18/19 11:41 95 H 137/84 10/18/19 10:00 93 H - Physical Examination General: No Apparent Distress HEENT: Positive: PERRL Cardiac: Positive: irregularly irregular Extremities: Absent: edema - Labs and Meds Cardiac Enzymes 10/19/19 Range/Units 05:22 Lactate Dehydrogenase 401 H (91-180) units/L CBC 10/18/19 10/19/19 Range/Units 09:49 05:22 WBC 9.1 9.1 (4.5-11.0) K/mm3 RBC 3.80 3.27 L (3.65-5.03) M/mm3 Hgb 12.7 11.1 L (11.8-15.2) gm/dl Hct 37.7 32.6 L (35.5-45.6) % Plt Count 76 L 91 L (140-440) K/mm3 Lymph # 1.1 L 1.7 (1.2-5.4) K/mm3 Humphreys # 0.9 H 0.8 (0.0-0.8) K/mm3 Eos # 0.2 0.2 (0.0-0.4) K/mm3 Baso # 0.0 0.0 (0.0-0.1) K/mm3 Comprehensive Metabolic Panel 10/18/19 10/19/19 Range/Units 09:49 05:22 Sodium 144 142 (137-145) mmol/L Potassium 3.3 L 3.3 L (3.6-5.0) mmol/L Chloride 103.2 106.7 (98-107) mmol/L Carbon Dioxide 25 21 L (22-30) mmol/L BUN 44 H 71 H (9-20) mg/dL Creatinine 2.2 H 2.6 H (0.8-1.5) mg/dL Glucose 104 H 133 H (75-100) mg/dL Calcium 7.8 L 7.4 L (8.4-10.2) mg/dL
[2019-10-19 10:00] LABS: INR 1.14 (0.87-1.13)
[2019-10-19 10:01] LABS: Partial Thromboplastin Time 34.3 Sec. (24.2-36.6)
[2019-10-19 10:45] LABS: Myeloperoxidase Antibody <1.0 AI (<1.0)
--- NOTE | 2019-10-19 12:04 | Progress Note ---
Assessment and Plan Acute renal failure, possible ischemic ATN from low BP, also possible TTP/HUS Sepsis Afib with RVR Hypotension Thrombocytopenia Hypokalemia Plan: Cr and BUN cont to rise, anuric HD today for clearance and gentle volume relova, LDH cont to be elevated, hematology consult is not available, will check [id number] secondary GN work up was negative except for HBVsag and RPR, ID is following Hypernatremia-cont D5W at75 ml/hr Strict I&O monitoring Obtain daily weights Renally dose medications Avoid nephrotoxic agents Monitor electrolytes and renal function closely Jamey Lang MD [phone] Subjective Date of service: 10/19/19 Principal diagnosis: Metabolic Encephalopathy Interval history: no overnight events reported, no family at bedside. Objective - Vital Signs Vital signs: Vital Signs - 12hr 10/19/19 10/19/19 10/19/19 04:00 04:10 05:36 Temperature 97.8 F Pulse Rate 89 120 H Pulse Rate [ Apical] Pulse Rate [ From Monitor] Respiratory 18 Rate Blood Pressure 132/76 132/76 O2 Sat by Pulse 96 Oximetry 10/19/19 10/19/19 10/19/19 08:00 08:27 08:45 Temperature 97.7 F 97.7 F Pulse Rate 66 104 H Pulse Rate [ 120 H Apical] Pulse Rate [ 120 H From Monitor] Respiratory 19 18 18 Rate Blood Pressure 116/63 119/60 O2 Sat by Pulse 97 Oximetry 10/19/19 10/19/19 10/19/19 10:00 10:15 10:30 Temperature Pulse Rate 88 100 H 73 Pulse Rate [ Apical] Pulse Rate [ From Monitor] Respiratory Rate Blood Pressure 135/67 135/38 104/48 O2 Sat by Pulse Oximetry 10/19/19 10/19/19 10/19/19 10:45 11:00 11:15 Temperature Pulse Rate 78 83 67 Pulse Rate [ Apical] Pulse Rate [ From Monitor] Respiratory Rate Blood Pressure 106/44 134/40 116/52 O2 Sat by Pulse Oximetry 10/19/19 11:30 Temperature Pulse Rate 82 Pulse Rate [ Apical] Pulse Rate [ From Monitor] Respiratory Rate Blood Pressure 105/62 O2 Sat by Pulse Oximetry - Lab 10/19/19 05:22 10/19/19 05:22 Most recent lab results Calcium 7.4 mg/dL (8.4-10.2) L 10/19/19 05:22 Phosphorus 2.90 mg/dL (2.5-4.5) 10/19/19 05:22 Medications & Allergies - Medications Allergies/Adverse Reactions: Allergies No Known Allergies Allergy (Unverified 10/10/19 21:31) Home Medications: Home Medications Medication Instructions Recorded Confirmed Last Taken Type Metoprolol 50 mg PO BID 10/10/19 10/18/19 Unknown History Active Medications: Generic Name Dose Route Start Last Admin Trade Name Freq PRN Reason Stop Dose Admin Acetaminophen 650 mg 10/11/19 02:03 Tylenol PO Q4H PRN Pain MILD(1-3)/Fever >100.5/ANNE Aspirin 81 mg 10/14/19 10:00 10/19/19 09:01 Halfprin Ec PO Not Given QDAY [facility] Enoxaparin Sodium 30 mg 10/14/19 10:00 10/19/19 09:01 Enoxaparin SUB-Q Not Given QDAY [facility] Hydralazine HCl 5 mg 10/11/19 08:00 Apresoline IV Q30MIN PRN Hypertension Dextrose 1,000 mls @ 75 mls/hr 10/16/19 10:00 10/19/19 05:37 D5w IV 125 mls/hr DIRECT NETO Administration Acyclovir 500 mg/ Sodium 110 mls @ 100 mls/hr 10/19/19 10:00 Chloride IV Q24HR [facility] Protocol Sodium Chloride 100 mls @ 999 mls/hr 10/19/19 09:00 Nacl 0.9% IV EMILIE PRN Hypotension Isosorbide Dinitrate/Hydralazine 1 each 10/13/19 14:00 10/19/19 05:36 Bidil 20/37.5mg PO 1 each Q8HR NETO Administration Labetalol HCl 10 mg 10/11/19 13:00 10/18/19 04:10 Labetalol IV 10 mg Q4H PRN Administration Hypertension Metoprolol Tartrate 50 mg 10/11/19 10:00 10/18/19 21:18 Metoprolol PO Not Given BID [facility] Ondansetron HCl 4 mg 10/11/19 02:03 Zofran IV Q8H PRN Nausea And Vomiting Sodium Chloride 10 ml 10/11/19 10:00 10/18/19 21:18 Sodium Chloride Flush Syringe 10 Ml IV 10 ml BID NETO Administration Sodium Chloride 10 ml 10/11/19 02:03 Sodium Chloride Flush Syringe 10 Ml IV PRN PRN LINE FLUSH
[2019-10-19] MEDS: ACYCLOVIR 1,000 MG in SODIUM CHLORIDE 0.9% 100 ML IV SCH (13:31)
[2019-10-19] MEDS: METOPROLOL TARTRATE 50 MG TAB PO SCH ×2 (13:32→22:55)
[2019-10-19 14:06] LABS: ANA Screen, IFA Negative (Negative)
--- NOTE | 2019-10-19 14:59 | Procedure Note ---
Date of procedure: 10/19/19 Pre-op diagnosis: altered mental status Post-op diagnosis: same Procedure: lumbar puncture Findings: none Anesthesia: local Surgeon: BURTON REINA Estimated blood loss: none Pathology: list (4 csf tubes) Specimen disposition: to lab Condition: stable Disposition: floor
--- NOTE | 2019-10-19 15:02 | Fluoroscopy Report ---
LUMBAR PUNCTURE INDICATION : Altered mental status PROCEDURE: The risks (including but not limited to bleeding, infection, and spinal headache) and ailyn efits were explained to the patient and informed consent was obtained. A time out procedure was perf ormed. The procedure site was prepped and draped in the usual sterile fashion and lidocaine was used for local anesthesia. Under fluoroscopic guidance, a 22-gauge spinal needle was advanced into the L4-5 interlaminar space. 4 separate collection tubes were used to obtain 1 mL of CSF. Samples were sent to the lab per the [facility] physician specifications for further evaluation. The patient tolerated the procedure well with no complications. IMPRESSION: Successful lumbar puncture as outlined above. Fluoroscopic time: 0.4 minutes Number of fluoroscopic images: 1 Signer Name: Bala Nielsen Jr, MD Signed: 10/19/2019 2:57 PM Workstation Name: [id number]
[2019-10-19 15:07] LABS: Glucose,CSF 48 mg/dL
--- NOTE | 2019-10-19 16:14 | Progress Note ---
Assessment and Plan Cultures: 10/10/2019 blood culture: No growth A/P: 84-year-old male with hypertension, atrial fibrillation, dementia was brought into the emergency room with nausea, vomiting and decreased oral intake. He was also having fevers at home and his was seemingly unable to take care of him: #SIRS: ?meningitis ? neurosyphilis. CXR without pneumonia. CT abdomen with mild nonspecific inflammation adjacent to the distal aorta. Blood cultures negative, UA without pyuria. Influenza rapid test negative, COVID-19 PCR negative, HIV negative, hepatitis C antibody negative. Hepatitis B surface antigen is reactiv e. #Acute encephalopathy: improving, RPR reactive 1:2. Should r/o neurosyphilis, HSV encephalitis, seizures. MRI brain shows small area of diffusion signal abnormality in the anterolateral cortex on the right ?post ictal. Given the degree of signal abnormality in the anterior temporal lobes, herpes encephalitis cannot entirely be excluded, but is unlikely. Fairly extensive white matter disease ?Vasculitis or subcortical arteriosclerotic encephalopathy. S/o LP on 10/18 glu 48, prot 65 #Chronic hepatitis B: Hepatitis B surface antigen is positive. AST, ALT are not elevated. Hep B PCR ordered. Considering his age, and no ALT elevation or obvious clinical evidence of cirrhosis or hepatic decompensation, doubt buttermaker continuous churn Hep B treatment is going to be of much benefit. #Acute kidney injury: Creatinine rising compared to admission. Nephrology following. Improving. #Mild thrombocytopenia: fluctuating. #Afib with RPR #Hypernatremia: better #RPR reactive 1:2. Should r/o neurosyphilis Recs: f/u CSF studies continue acyclovir renally adjusted 500 mg IV qday Hep B DNA PCR ordered -pending Obtain EEG - pending Monitor mentation. Will follow. Darlene Shields MD Infectious Diseases Security Advisor [facility] M [phone] O [phone] Subjective Date of service: 10/19/19 Principal diagnosis: Metabolic Encephalopathy Interval history: Sleepy non verbal no fever Objective - Exam Narrative Exam: General appearance: alert in NAD Eyes: anicteric sclerae, moist conjunctivae; no lid-lag; PERRLA HENT: Atraumatic; oropharynx limited Lungs: CTA CV: RRR no murmur Abdomen: Soft, non-tender Extremities: no edema, no cyanosis Skin: No rash. Psych:no agitated Neuro: alert non verbal - Constitutional Vitals: Vital Signs Temp Pulse Resp BP Pulse Ox 97.4 F L 91 H 18 110/63 100 10/19/19 13:57 10/19/19 13:57 10/19/19 13:57 10/19/19 13:57 10/19/19 13:57 Temperature -Last 24 Hours Temperature 97.4 F Temperature 97.7 F Temperature 97.7 F Temperature 97.7 F Temperature 97.8 F Temperature 97.8 F Temperature 97.9 F - Labs CBC & Chem 7: 10/19/19 05:22 10/19/19 05:22 Labs: Abnormal lab results 10/19/19 10/19/19 10/19/19 Range/Units 05: 05:22 08:00 RBC 3.27 L (3.65-5.03) M/mm3 Hgb 11.1 L (11.8-15.2) gm/dl Hct 32.6 L (35.5-45.6) % MCV 100 H (84-94) fl MCH 34 H (28-32) pg Plt Count 91 L (140-440) K/mm3 [place] % (Auto) 8.9 H (0.0-7.3) % Seg Neutrophils % 70.3 H (40.0-70.0) % INR 1.14 H (0.87-1.13) Potassium 3.3 L (3.6-5.0) mmol/L Carbon Dioxide 21 L (22-30) mmol/L BUN 71 H (9-20) mg/dL Creatinine 2.6 H (0.8-1.5) mg/dL Glucose 133 H (75-100) mg/dL Calcium 7.4 L (8.4-10.2) mg/dL Lactate Dehydrogenase 401 H (91-180) units/L
[2019-10-19 16:39] LABS: Total Cells Counted 100 /mm3
[2019-10-19 16:40] LABS: Appearance,CSF Clear; Red Blood Cell,CSF 3 /mm3 (0-0); White Blood Cell,CSF 4 /mm3 (1-10)
[2019-10-19 16:41] LABS: Basophils CSF 0 %
[2019-10-19] MEDS: ACYCLOVIR 500 MG in SODIUM CHLORIDE 0.9% 100 ML IV SCH (17:01)
--- NOTE | 2019-10-19 23:23 | Progress Note ---
Assessment and Plan Patient is an 84 y/o man w/ a h/o HTN, A-fib, who p/w altered mental status, nausea, vomiting, and was found to have failure to thrive, hypertensive urgency, A-fib w/ RVR, ARF requiring HD, SIRS, hypernatremia, lactic acidosis, leukocytosis. According to the patient's clinical findings, it is likely that he has metabolic encephalopathy, which is likely due to the aforementioned metabolic derangements. Plan: 1. Metabolic Encephalopathy - Likely in setting of hypertensive urgency, A-fib w/ RVR, ARF requiring HD, SIRS, hypernatremia, lactic acidosis, and leukocytosis. - Patient remains notably lethargic, Son states that he was at baseline of mental status and was not confused when he spoke to him over the phone. - CT head: Lt. frontal white matter hypodensity, age indeterminant. - MRI Brain: right temporal area of diffusion restriction, which may be T2 shine-through vs. post-ictal change vs. encephalitis. Unlikely to be infarct, however can not be completely ruled out, given patient has A-fib. - Per cardiology, patient is not a good candidate for anti-coagulation for A-fib at this time. - Echo: EF 35-40%, LA severely dilated. - ID team investigating for possible syphilis. - Covid-19 negative. - CSF: WBC 4, RBC 3, Protein 65, Glucose 48. - CSF viral PCRs pending. Patient on Acyclovir per ID. - EEG: no seizures or epileptiform activity. Generalized slowing. - Continue to correct metabolic abnormalities/infections per primary team - Will continue to monitor neurologic status. Thank you for allowing me to take part in the care of this patient. Dayne Power MD Neurology This clinical encounter was provided via live telemedicine portal. Consultative service was provided for neurology to support local providers. The Acute Teleneurology team should be contacted with any neurologic worsening or clinical changes, new test results, or new patient history that is reported to or discovered by the local team following completion of the teleneurology consultation, specifically that which has the potential to impact the consultative recommendations. Patient/Family was informed the Neurology Consult would happen via TeleHealth consult by way of interactive audio and video telecommunications and consented to receiving care in this manner. Due to the potential for life-threatening deterioration due to underlying neurologic illness, and limited resources available for patient care, telemedicine was used as means of patient care. Telemedicine consultation is limited in the extent of physical exam that can be virtually provided. Time spent evaluating patient includes time for face to face visit via telemedicine, review of medical records, imaging studies and discussion of findings with providers, the patient and/or family. Subjective Date of service: 10/19/19 Principal diagnosis: Metabolic Encephalopathy Interval history: No acute events overnight. Patient remains lethargic. Objective - Exam Narrative Exam: Patient is alert, lethargic, oriented only to self, otherwise nonverbal, follows 1-step commands. EOMI, VFF, tongue midline, no facial weakness noted. Patient able to move all extremities anti-gravity and symmetrically. W/d to pain in all extremities. Exam limited due to telemedicine encounter. - Vital Sign Vital Signs - 12hr 10/19/19 10/19/19 10/19/19 11:30 11:45 12:00 Temperature Pulse Rate 82 91 H 97 H Respiratory Rate Blood Pressure 105/62 115/55 81/49 O2 Sat by Pulse Oximetry 10/19/19 10/19/19 10/19/19 12:03 12:15 12:20 Temperature Pulse Rate 89 78 86 Respiratory Rate Blood Pressure 90/34 77/40 79/65 O2 Sat by Pulse Oximetry 10/19/19 10/19/19 10/19/19 12:23 12:31 12:45 Temperature Pulse Rate 62 78 95 H Respiratory Rate Blood Pressure 94/50 119/62 99/65 O2 Sat by Pulse Oximetry 10/19/19 10/19/19 10/19/19 13:02 13:25 13:32 Temperature 97.7 F Pulse Rate 61 71 122 H Respiratory 18 Rate Blood Pressure 92/48 180/62 180/62 O2 Sat by Pulse Oximetry 10/19/19 10/19/19 10/19/19 13:35 13:57 16:32 Temperature 97.4 F L 98.7 F Pulse Rate 122 H 91 H 70 Respiratory 18 20 Rate Blood Pressure 110/63 94/45 O2 Sat by Pulse 100 99 Oximetry 10/19/19 10/19/19 10/19/19 17:00 19:40 22:54 Temperature 99.2 F 98.7 F Pulse Rate 125 H 90 104 H Respiratory 18 18 Rate Blood Pressure 147/66 128/80 O2 Sat by Pulse 100 98 Oximetry 10/19/19 22:55 Temperature Pulse Rate 104 H Respiratory Rate Blood Pressure 128/80 O2 Sat by Pulse Oximetry - Laboratory Findings CBC and BMP: 10/19/19 05:22 10/19/19 05:22 Abnormal Lab Findings: Abnormal Labs 10/10/19 10/10/19 10/10/19 21:40 21:40 21:40 WBC 18.1 H RBC Hgb 15.4 H Hct 47.7 H MCV 101 H MCH 33 H MCHC Plt Count 132 L Lymph % (Auto) 5.3 L [place] % (Auto) Lymph # 1.0 L [place] # 1.3 H Seg Neutrophils % 86.9 H Seg Neuts % (Manual) Lymphocytes % (Manual) Seg Neutrophils # 15.7 H Seg Neutrophils # Man Lymphocytes # (Manual) PT INR Sodium Potassium Chloride Carbon Dioxide 17 L BUN 39 H Creatinine Glucose 139 H POC Glucose Lactic Acid 2.90 H* Calcium Phosphorus Total Bilirubin 2.50 H Lactate Dehydrogenase Total Creatine Kinase Syphilis IgG Antibody 10/10/19 10/10/19 10/11/19 21:40 23:04 01:13 WBC RBC Hgb Hct MCV MCH MCHC Plt Count Lymph % (Auto) [place] % (Auto) Lymph # [place] # Seg Neutrophils % Seg Neuts % (Manual) Lymphocytes % (Manual) Seg Neutrophils # Seg Neutrophils # Man Lymphocytes # (Manual) PT 15.1 H INR 1.14 H 1.18 H Sodium Potassium Chloride Carbon Dioxide BUN Creatinine Glucose POC Glucose Lactic Acid 3.20 H* Calcium Phosphorus Total Bilirubin Lactate Dehydrogenase Total Creatine Kinase Syphilis IgG Antibody 10/11/19 10/11/19 10/12/19 04:42 04:42 14:04 WBC 15.9 H RBC Hgb 15.5 H Hct 46.6 H MCV 101 H MCH 33 H MCHC Plt Count 81 L Lymph % (Auto) [place] % (Auto) Lymph # [place] # Seg Neutrophils % Seg Neuts % (Manual) 93.0 H Lymphocytes % (Manual) 2.0 L Seg Neutrophils # Seg Neutrophils # Man 14.8 H Lymphocytes # (Manual) 0.3 L PT INR Sodium Potassium Chloride Carbon Dioxide 21 L BUN 38 H Creatinine Glucose 183 H POC Glucose 140 H Lactic Acid Calcium Phosphorus Total Bilirubin Lactate Dehydrogenase Total Creatine Kinase Syphilis IgG Antibody 05/08/20 05/08/20 05/08/20 07:37 07:37 18:18 WBC 14.4 H RBC Hgb Hct MCV 100 H MCH 34 H MCHC Plt Count 86 L Lymph % (Auto) 6.6 L [place] % (Auto) 8.2 H Lymph # 0.9 L [place] # 1.2 H Seg Neutrophils % 84.9 H Seg Neuts % (Manual) Lymphocytes % (Manual) Seg Neutrophils # 12.2 H Seg Neutrophils # Man Lymphocytes # (Manual) PT INR Sodium Potassium Chloride 108.0 H Carbon Dioxide 14 L D BUN 100 H Creatinine 3.7 H D Glucose 148 H POC Glucose 139 H Lactic Acid Calcium Phosphorus Total Bilirubin Lactate Dehydrogenase Total Creatine Kinase Syphilis IgG Antibody 10/14/19 10/14/19 10/14/19 06:16 06:16 10:56 WBC RBC Hgb Hct MCV 100 H MCH 34 H MCHC Plt Count 90 L Lymph % (Auto) 5.7 L [place] % (Auto) Lymph # 0.6 L [place] # Seg Neutrophils % 88.4 H Seg Neuts % (Manual) Lymphocytes % (Manual) Seg Neutrophils # 8.6 H Seg Neutrophils # Man Lymphocytes # (Manual) PT INR Sodium 151 H Potassium 3.5 L Chloride 115.7 H Carbon Dioxide 14 L BUN 121 H Creatinine 4.1 H Glucose 162 H POC Glucose Lactic Acid Calcium 7.9 L Phosphorus Total Bilirubin Lactate Dehydrogenase 331 H Total Creatine Kinase 563 H Syphilis IgG Antibody 10/15/19 10/15/19 10/15/19 05:18 05:18 08:46 WBC RBC Hgb Hct MCV 99 H MCH 34 H MCHC Plt Count 98 L Lymph % (Auto) 6.4 L [place] % (Auto) Lymph # 0.6 L [place] # Seg Neutrophils % 86.8 H Seg Neuts % (Manual) Lymphocytes % (Manual) Seg Neutrophils # Seg Neutrophils # Man Lymphocytes # (Manual) PT 16.1 H INR 1.32 H Sodium 158 H Potassium 3.2 L Chloride 117.4 H Carbon Dioxide 20 L BUN 128 H Creatinine 3.8 H Glucose 120 H POC Glucose Lactic Acid Calcium Phosphorus 5.10 H Total Bilirubin Lactate Dehydrogenase Total Creatine Kinase Syphilis IgG Antibody 10/15/19 10/16/19 10/16/19 14:53 05:50 05:50 WBC RBC Hgb Hct MCV 100 H MCH 35 H MCHC 35 H Plt Count 99 L Lymph % (Auto) 8.3 L [place] % (Auto) 7.8 H Lymph # 0.7 L [place] # Seg Neutrophils % 82.3 H Seg Neuts % (Manual) Lymphocytes % (Manual) Seg Neutrophils # Seg Neutrophils # Man Lymphocytes # (Manual) PT INR Sodium 161 H* Potassium 3.3 L Chloride 121.2 H Carbon Dioxide BUN 134 H Creatinine 4.1 H Glucose 126 H POC Glucose Lactic Acid Calcium 8.0 L Phosphorus 5.80 H Total Bilirubin Lactate Dehydrogenase Total Creatine Kinase Syphilis IgG Antibody Reactive A 10/16/19 10/17/19 10/17/19 20:28 05:27 05:27 WBC RBC Hgb Hct MCV 100 H MCH 34 H MCHC Plt Count 83 L Lymph % (Auto) 12.5 L [place] % (Auto) 10.7 H Lymph # 1.0 L [place] # 0.9 H Seg Neutrophils % 75.7 H Seg Neuts % (Manual) Lymphocytes % (Manual) Seg Neutrophils # Seg Neutrophils # Man Lymphocytes # (Manual) PT INR Sodium 151 H D 151 H Potassium 3.0 L Chloride 107.8 H Carbon Dioxide BUN 54 H Creatinine 2.3 H Glucose 156 H POC Glucose Lactic Acid Calcium 7.8 L Phosphorus Total Bilirubin Lactate Dehydrogenase Total Creatine Kinase Syphilis IgG Antibody 10/18/19 10/18/19 10/19/19 09:49 09:49 05:22 WBC RBC 3.27 L Hgb 11.1 L Hct 32.6 L MCV 99 H 100 H MCH 34 H 34 H MCHC Plt Count 76 L 91 L Lymph % (Auto) 12.4 L [place] % (Auto) 10.1 H 8.9 H Lymph # 1.1 L [place] # 0.9 H Seg Neutrophils % 75.7 H 70.3 H Seg Neuts % (Manual) Lymphocytes % (Manual) Seg Neutrophils # Seg Neutrophils # Man Lymphocytes # (Manual) PT INR Sodium Potassium 3.3 L Chloride Carbon Dioxide BUN 44 H Creatinine 2.2 H Glucose 104 H POC Glucose Lactic Acid Calcium 7.8 L Phosphorus Total Bilirubin Lactate Dehydrogenase Total Creatine Kinase Syphilis IgG Antibody 10/19/19 10/19/19 05:22 08:00 WBC RBC Hgb Hct MCV MCH MCHC Plt Count Lymph % (Auto) [place] % (Auto) Lymph # [place] # Seg Neutrophils % Seg Neuts % (Manual) Lymphocytes % (Manual) Seg Neutrophils # Seg Neutrophils # Man Lymphocytes # (Manual) PT INR 1.14 H Sodium Potassium 3.3 L Chloride Carbon Dioxide 21 L BUN 71 H Creatinine 2.6 H Glucose 133 H POC Glucose Lactic Acid Calcium 7.4 L Phosphorus Total Bilirubin Lactate Dehydrogenase 401 H Total Creatine Kinase Syphilis IgG Antibody
[2019-10-20] MEDS: DEXTROSE 5% IN WATER 1,000 ML IV SCH (02:44)
[2019-10-20 05:52] LABS: Basophils % (Auto) 0.1 % (0.0-1.8); Eosinophils # (Auto) 0.1 K/mm3 (0.0-0.4); Hematocrit 23.9 % (35.5-45.6); Hemoglobin 8.2 gm/dl (11.8-15.2); Lymphocytes # (Auto) 1.8 K/mm3 (1.2-5.4); Lymphocytes % (Auto) 13.3 % (13.4-35.0); Mean Corpuscular HGB Conc 34 % (32-34); Mean Corpuscular Volume 98 fl (84-94); Monocytes # (Auto) 1.2 K/mm3 (0.0-0.8); Monocytes % (Auto) 8.3 % (0.0-7.3); Platelet Count 107 K/mm3 (140-440); Red Blood Count 2.43 M/mm3 (3.65-5.03); Red Cell Distribution Width 13.4 % (13.2-15.2)
[2019-10-20 06:06] LABS: Calcium 8.4 mg/dL (8.4-10.2)
[2019-10-20] MEDS: ISOSORB DINIT/HYDRALAZINE 20-37.5MG TAB PO SCH ×3 (06:42→21:39)
--- NOTE | 2019-10-20 09:25 | Progress Note ---
Assessment and Plan Acute renal failure, possible ischemic ATN from low BP, also possible TTP/HUS Sepsis Afib with RVR Hypotension Thrombocytopenia Hypokalemia Plan: cont to be anuric, likely will need permcath placement Wednesday and outpatient dialysis if no improvement in PRIMO, will try to hold HD during the weekend if possible. LDH cont to be elevated, hematology consult is not available, [id number] requested on 10/18 secondary GN work up was negative except for HBVsag and RPR, ID is following Hypernatremia-reslved, will decrease D5W to 35 cc/h Strict I&O monitoring Obtain daily weights Renally dose medications Avoid nephrotoxic agents Monitor electrolytes and renal function closely Jamey Lang MD [phone] Subjective Date of service: 10/20/19 Principal diagnosis: Metabolic Encephalopathy Interval history: dialysis was tolerated well per report. Objective - Vital Signs Vital signs: Vital Signs - 12hr 10/19/19 10/19/19 10/19/19 22:00 22:54 22:55 Temperature 98.7 F Pulse Rate 95 H 104 H 104 H Pulse Rate [ 104 H Apical] Pulse Rate [ 104 H From Monitor] Respiratory 16 18 Rate Blood Pressure 128/80 128/80 O2 Sat by Pulse 98 Oximetry 10/20/19 10/20/19 10/20/19 04:01 06:42 07:24 Temperature 97.5 F L 97.0 F L Pulse Rate 105 H 84 Pulse Rate [ Apical] Pulse Rate [ From Monitor] Respiratory 18 20 Rate Blood Pressure 168/92 170/76 124/72 O2 Sat by Pulse 100 Oximetry - Lab 10/20/19 05:23 10/20/19 05:23 Most recent lab results Calcium 8.4 mg/dL (8.4-10.2) 10/20/19 05:23 Phosphorus 3.20 mg/dL (2.5-4.5) 10/20/19 05:23 Medications & Allergies - Medications Allergies/Adverse Reactions: Allergies No Known Allergies Allergy (Unverified 10/10/19 21:31) Home Medications: Home Medications Medication Instructions Recorded Confirmed Last Taken Type Metoprolol 50 mg PO BID 10/10/19 10/18/19 Unknown History Active Medications: Generic Name Dose Route Start Last Admin Trade Name Freq PRN Reason Stop Dose Admin Acetaminophen 650 mg 10/11/19 02:03 Tylenol PO Q4H PRN Pain MILD(1-3)/Fever >100.5/ANNE Aspirin 81 mg 10/14/19 10:00 10/19/19 09:01 Halfprin Ec PO Not Given QDAY NETO Enoxaparin Sodium 30 mg 10/14/19 10:00 10/19/19 09:01 Enoxaparin SUB-Q Not Given QDAY NETO Hydralazine HCl 5 mg 10/11/19 08:00 Apresoline IV Q30MIN PRN Hypertension Dextrose 1,000 mls @ 75 mls/hr 10/16/19 10:00 10/20/19 02:44 D5w IV 125 mls/hr DIRECT NETO Administration Acyclovir 500 mg/ Sodium 110 mls @ 100 mls/hr 10/19/19 10:00 10/19/19 17:01 Chloride IV 100 mls/hr Q24HR NETO Administration Protocol Sodium Chloride 100 mls @ 999 mls/hr 10/19/19 09:00 Nacl 0.9% IV EMILIE PRN Hypotension Isosorbide Dinitrate/Hydralazine 1 each 10/13/19 14:00 10/20/19 06:42 Bidil 20/37.5mg PO 1 each Q8HR NETO Administration Labetalol HCl 10 mg 10/11/19 13:00 10/18/19 04:10 Labetalol IV 10 mg Q4H PRN Administration Hypertension Metoprolol Tartrate 50 mg 10/11/19 10:00 10/19/19 22:55 Metoprolol PO 50 mg BID NETO Administration Ondansetron HCl 4 mg 10/11/19 02:03 Zofran IV Q8H PRN Nausea And Vomiting Sodium Chloride 10 ml 10/11/19 10:00 10/19/19 22:55 Sodium Chloride Flush Syringe 10 Ml IV 10 ml BID NETO Administration Sodium Chloride 10 ml 10/11/19 02:03 Sodium Chloride Flush Syringe 10 Ml IV PRN PRN LINE FLUSH
--- NOTE | 2019-10-20 09:36 | Progress Note ---
Assessment and Plan Atrial fibrillation, persistent on metoprolol for rate control Pt has been deemed to be a poor candidate for skilled nursing anticoagulation given overall frailty and thrombocytopenia Acute renal failure -initiated on dialysis Hypertension Dilated Cardiomyopathy, uncertain duration an echo this admission shows atrial enlargement, decreased left ventricular systolic function, ejection fraction 35-40%. Continue medical therapy for dilated cardiomyopathy and rate controlling agents for atrial fibrillation that persists. Otherwise, conservative cardiac management. Subjective Date of service: 10/20/19 Principal diagnosis: Metabolic Encephalopathy Interval history: No interval cardiac changes. Afib with a well controlled ventricular rate on telemetry. Objective Vital Signs Temp Pulse Pulse Pulse Resp BP Pulse Ox 10/20/19 07:24 97.0 F L 20 124/72 10/20/19 06:42 84 170/76 10/20/19 04:01 97.5 F L 105 H 18 168/92 100 10/19/19 22:55 104 H 128/80 10/19/19 22:54 98.7 F 104 H 18 128/80 98 10/19/19 22:00 95 H 104 H 104 H 16 10/19/19 19:40 99.2 F 90 18 147/66 100 10/19/19 17:00 125 H 10/19/19 16:32 98.7 F 70 20 94/45 99 10/19/19 13:57 97.4 F L 91 H 18 110/63 100 10/19/19 13:35 122 H 10/19/19 13:32 122 H 180/62 10/19/19 13:25 97.7 F 71 18 180/62 10/19/19 13:02 61 92/48 10/19/19 12:45 95 H 99/65 10/19/19 12:31 78 119/62 10/19/19 12:23 62 94/50 10/19/19 12:20 86 79/65 10/19/19 12:15 78 77/40 10/19/19 12:03 89 90/34 10/19/19 12:00 97 H 81/49 10/19/19 11:45 91 H 115/55 10/19/19 11:30 82 105/62 10/19/19 11:15 67 116/52 10/19/19 11:00 83 134/40 10/19/19 10:45 78 106/44 05/14/20 10:30 73 104/48 10/19/19 10:15 100 H 135/38 10/19/19 10:00 132 H 135/67 - Physical Examination General: No Apparent Distress Cardiac: Positive: irregularly irregular Extremities: Absent: edema - Labs and Meds Coagulation 10/19/19 Range/Units 08:00 PT 14.7 (12.2-14.9) Sec. INR 1.14 H (0.87-1.13) APTT 34.3 (24.2-36.6) Sec. CBC 10/20/19 Range/Units 05:23 WBC 13.9 H (4.5-11.0) K/mm3 RBC 2.43 L (3.65-5.03) M/mm3 Hgb 8.2 L (11.8-15.2) gm/dl Hct 23.9 L D (35.5-45.6) % Plt Count 107 L (140-440) K/mm3 Lymph # 1.8 (1.2-5.4) K/mm3 [place] # 1.2 H (0.0-0.8) K/mm3 Eos # 0.1 (0.0-0.4) K/mm3 Baso # 0.0 (0.0-0.1) K/mm3 Comprehensive Metabolic Panel 10/20/19 Range/Units 05:23 Sodium 137 (137-145) mmol/L Potassium 3.4 L (3.6-5.0) mmol/L Chloride 100.6 (98-107) mmol/L Carbon Dioxide 22 (22-30) mmol/L BUN 64 H (9-20) mg/dL Creatinine 2.8 H (0.8-1.5) mg/dL Glucose 162 H (75-100) mg/dL Calcium 8.4 (8.4-10.2) mg/dL
--- NOTE | 2019-10-20 10:47 | Progress Note ---
Assessment and Plan Assessment and plan: Toxic metabolic encephalopathy. Treat underlying causes SIRS No obvious infection Chest x-ray negative, CT of the abdomen showed some mild nonspecific inflammation near the distal aorta. ID following A. fib with RVR, status post conversion DC heparin drip, patient thrombocytopenic cardiology following Acute metabolic encephalopathy altered mental status,confusion Chronic hepatitis B. hepatitis B surface antigen positive. LFTs not elevated. 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 Slight improvement. Cr 3.[address] Oliveira, hematology for low plaletels but he says he does not work here anymore. called and updated daughter on [phone] 10/16/19 patient presented with alterd mental status,nausea,vomiting. Found to have PRIMO due to ATN, thrombocytopenia. Cr worsening. Discussed with Nephrology yesterday. Plan to initiate dialysis if he gets worse. labs show Syphilis IgG antibody positive. ID to evaluate. 10/17/2019. Follow-up hepatitis B PCR. Check MRI of brain. Follow-up RPR with titer to determine active syphilis. 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 If mental status does not improve consider LP. 10/18/2019. Neurology evaluated the patient and diagnosed with metabolic encephalopathy with etiology likely secondary to hypertensive urgency, A-fib w/ RVR, ARF requiring HD, SIRS, hypernatremia, lactic acidosis, and leukocytosis. ID team investigating for possible syphilis. As patient was not found to have an infectious source as of yet, agree with ID that MRI brain would aid in further investigating potential of meningo-encephalitis, and to rule out any intracranial pathology contributing to current mental status. If patient's mental status does not continue to improve as metabolic/infectious abnormalities are corrected, then will consider LP/CSF studies. 10/19/2019. Neurology evaluated the patient and diagnosed with metabolic encephalopathy with etiology likely secondary to hypertensive urgency, A-fib w/ RVR, ARF requiring HD, SIRS, hypernatremia, lactic acidosis, and leukocytosis. CT head: Lt. frontal white matter hypodensity, age indeterminant. MRI Brain: right temporal area of diffusion restriction, which may be T2 shine-through vs. post-ictal change vs. encephalitis. Unlikely to be infarct, however can not be completely ruled out, given patient has A-fib. Echo: EF 35-40%, LA severely dilated. EEG pending. 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 Follow-up lumbar puncture. 10/20/19. ?meningitis ?neurosyphilis. ID to rule out neurosyphilis, HSV encepha litis. MRI brain shows small area of diffusion signal abnormality in the anterolateral cortex on the right. CSF studies pending. Continue acyclovir 500 mg IV daily per ID. From kidney perspective, the patient cont to be anuric, likely will need permcath placement Wednesday and outpatient dialysis if no improvement in PRIMO, will try to hold HD during the weekend if possible. LDH cont to be elevated, hematology consult is not available, [id number] requested on 10/18. Secondary GN work up was negative except for HBVsag and RPR, ID is following. With regards to atrial fibrillation, patient remains on metoprolol for rate control. Pt has been deemed to be a poor candidate for chcf anticoagulation given overall frailty and thrombocytopenia History Interval history: No new issues overnight Hospitalist Physical - Constitutional Vitals: Temp Pulse Resp BP Pulse Ox 97.0 F L 84 20 124/72 100 10/20/19 07:24 10/20/19 06:42 10/20/19 07:24 10/20/19 07:24 10/20/19 04:01 General appearance: Present: no acute distress - EENT Eyes: Present: PERRL, EOM intact ENT: hearing intact, clear oral mucosa, dentition normal - Neck Neck: Present: supple, normal ROM - Respiratory Respiratory effort: normal Respiratory: bilateral: CTA - Cardiovascular Rhythm: regular Heart Sounds: Present: S1 & S2. Absent: gallop, rub - Extremities Extremities: no ischemia, No edema, Full ROM - Abdominal General gastrointestinal: soft, non-tender, non-distended, normal bowel sounds - Integumentary Integumentary: Present: clear, warm, dry - Neurologic Neurologic: CNII-XII intact, moves all extremities HEART Score - HEART Score Troponin: Troponin T 0.024 ng/mL (0.00-0.029) 10/10/19 21:40 Results - Labs CBC & Chem 7: 10/20/19 05:23 10/20/19 05:23 Labs: Laboratory Last Values WBC 13.9 K/mm3 (4.5-11.0) H 10/20/19 05:23 RBC 2.43 M/mm3 (3.65-5.03) L 10/20/19 05:23 Hgb 8.2 gm/dl (11.8-15.2) L 10/20/19 05:23 Hct 23.9 % (35.5-45.6) L D 10/20/19 05:23 MCV 98 fl (84-94) H 10/20/19 05:23 MCH 34 pg (28-32) H 10/20/19 05:23 MCHC 34 % (32-34) 10/20/19 05:23 RDW 13.4 % (13.2-15.2) 10/20/19 05:23 Plt Count 107 K/mm3 (140-440) L 10/20/19 05:23 Lymph % (Auto) 13.3 % (13.4-35.0) L 10/20/19 05:23 [place] % (Auto) 8.3 % (0.0-7.3) H 10/20/19 05:23 Eos % (Auto) 1.0 % (0.0-4.3) 10/20/19 05:23 Baso % (Auto) 0.1 % (0.0-1.8) 10/20/19 05:23 Lymph # 1.8 K/mm3 (1.2-5.4) 10/20/19 05:23 [place] # 1.2 K/mm3 (0.0-0.8) H 10/20/19 05:23 Eos # 0.1 K/mm3 (0.0-0.4) 10/20/19 05:23 Baso # 0.0 K/mm3 (0.0-0.1) 10/20/19 05:23 Add Manual Diff Complete 10/11/19 04:42 Total Counted 100 10/11/19 04:42 Seg Neutrophils % 77.3 % (40.0-70.0) H 10/20/19 05:23 Seg Neuts % (Manual) 93.0 % (40.0-70.0) H 10/11/19 04:42 Band Neutrophils % 1.0 % 10/11/19 04:42 Lymphocytes % (Manual) 2.0 % (13.4-35.0) L 10/11/19 04:42 Reactive Lymphs % (Man) 0 % 10/11/19 04:42 Monocytes % (Manual) 4.0 % (0.0-7.3) 10/11/19 04:42 Eosinophils % (Manual) 0 % (0.0-4.3) 10/11/19 04:42 Basophils % (Manual) 0 % (0.0-1.8) 10/11/19 04:42 Metamyelocytes % 0 % 10/11/19 04:42 Myelocytes % 0 % 10/11/19 04:42 Promyelocytes % 0 % 10/11/19 04:42 Blast Cells % 0 % 10/11/19 04:42 Nucleated RBC % Not Reportable 10/11/19 04:42 Seg Neutrophils # 10.7 K/mm3 (1.8-7.7) H 10/20/19 05:23 Seg Neutrophils # Man 14.8 K/mm3 (1.8-7.7) H 10/11/19 04:42 Band Neutrophils # 0.2 K/mm3 10/11/19 04:42 Lymphocytes # (Manual) 0.3 K/mm3 (1.2-5.4) L 10/11/19 04:42 Abs React Lymphs (Man) 0.0 K/mm3 10/11/19 04:42 Monocytes # (Manual) 0.6 K/mm3 (0.0-0.8) 10/11/19 04:42 Eosinophils # (Manual) 0.0 K/mm3 (0.0-0.4) 10/11/19 04:42 Basophils # (Manual) 0.0 K/mm3 (0.0-0.1) 10/11/19 04:42 Metamyelocytes # 0.0 K/mm3 10/11/19 04:42 Myelocytes # 0.0 K/mm3 10/11/19 04:42 Promyelocytes # 0.0 K/mm3 10/11/19 04:42 Blast Cells # 0.0 K/mm3 10/11/19 04:42 WBC Morphology Not Reportable 10/11/19 04:42 Hypersegmented Neuts Not Reportable 10/11/19 04:42 Hyposegmented Neuts Not Reportable 10/11/19 04:42 Hypogranular Neuts Not Reportable 10/11/19 04:42 Smudge Cells Not Reportable 10/11/19 04:42 Toxic Granulation Not Reportable 10/11/19 04:42 Toxic Vacuolation Not Reportable 10/11/19 04:42 Dohle Bodies Not Reportable 10/11/19 04:42 Pelger-Huet Anomaly Not Reportable 10/11/19 04:42 Glenys Rods Not Reportable 10/11/19 04:42 Platelet Estimate Consistent w auto 10/11/19 04:42 Clumped Platelets Not Reportable 10/11/19 04:42 Plt Clumps, EDTA Not Reportable 10/11/19 04:42 Large Platelets Not Reportable 10/11/19 04:42 Giant Platelets Not Reportable 10/11/19 04:42 Platelet Satelliting Not Reportable 10/11/19 04:42 Plt Morphology Comment Not Reportable 10/11/19 04:42 RBC Morphology Not Reportable 10/11/19 04:42 Dimorphic RBCs Not Reportable 10/11/19 04:42 Polychromasia Not Reportable 10/11/19 04:42 Hypochromasia Not Reportable 10/11/19 04:42 Poikilocytosis Not Reportable 10/11/19 04:42 Anisocytosis Not Reportable 10/11/19 04:42 Microcytosis Not Reportable 10/11/19 04:42 Macrocytosis Not Reportable 10/11/19 04:42 Spherocytes Not Reportable 10/11/19 04:42 Pappenheimer Bodies Not Reportable 10/11/19 04:42 Sickle Cells Not Reportable 10/11/19 04:42 Target Cells Not Reportable 10/11/19 04:42 Tear Drop Cells Not Reportable 10/11/19 04:42 Ovalocytes Not Reportable 10/11/19 04:42 Helmet Cells Not Reportable 10/11/19 04:42 [place] Bodies Not Reportable 10/11/19 04:42 Presto Rings Not Reportable 10/11/19 04:42 Paula Cells Not Reportable 10/11/19 04:42 Bite Cells Not Reportable 10/11/19 04:42 Crenated Cell Not Reportable 10/11/19 04:42 Elliptocytes Rare 10/11/19 04:42 Acanthocytes (Spur) Not Reportable 10/11/19 04:42 Rouleaux Not Reportable 10/11/19 04:42 Hemoglobin C Crystals Not Reportable 10/11/19 04:42 Schistocytes Not Reportable 10/11/19 04:42 Malaria parasites Not Reportable 10/11/19 04:42 Robin Bodies Not Reportable 10/11/19 04:42 Hem Pathologist Commnt No 10/11/19 04:42 PT 14.7 Sec. (12.2-14.9) 10/19/19 08:00 INR 1.14 (0.87-1.13) H 10/19/19 08:00 APTT 34.3 Sec. (24.2-36.6) 10/19/19 08:00 Sodium 137 mmol/L (137-145) 10/20/19 05:23 Potassium 3.4 mmol/L (3.6-5.0) L 10/20/19 05:23 Chloride 100.6 mmol/L (98-107) 10/20/19 05:23 Carbon Dioxide 22 mmol/L (22-30) 10/20/19 05:23 Anion Gap 18 mmol/L 10/20/19 05:23 BUN 64 mg/dL (9-20) H 10/20/19 05:23 Creatinine 2.8 mg/dL (0.8-1.5) H 10/20/19 05:23 Estimated GFR 22 ml/min 10/20/19 05:23 BUN/Creatinine Ratio 23 % 10/20/19 05:23 Glucose 162 mg/dL (75-100) H 10/20/19 05:23 POC Glucose 139 (70-105) H 10/13/19 18:18 Lactic Acid 3.20 mmol/L (0.7-2.0) H* 10/10/19 23:04 Calcium 8.4 mg/dL (8.4-10.2) 10/20/19 05:23 Phosphorus 3.20 mg/dL (2.5-4.5) 10/20/19 05:23 Total Bilirubin 2.50 mg/dL (0.1-1.2) H 10/10/19 21:40 AST 39 units/L (5-40) 10/10/19 21:40 ALT 22 units/L (7-56) 10/10/19 21:40 Alkaline Phosphatase 102 units/L (35-129) 10/10/19 21:40 Ammonia 54.0 umol/L (25-60) 10/10/19 21:40 Lactate Dehydrogenase 401 units/L (91-180) H 10/19/19 05:22 Total Creatine Kinase 563 units/L (55-170) H 10/14/19 10:56 Troponin T 0.024 ng/mL (0.00-0.029) 10/10/19 21:40 Total Protein 7.6 g/dL (6.3-8.2) 10/10/19 21:40 Albumin 4.1 g/dL (3.9-5) 10/10/19 21:40 Albumin/Globulin Ratio 1.2 % 10/10/19 21:40 TSH 2.550 mlU/mL (0.270-4.200) 10/10/19 21:40 Urine Color Yellow (Yellow) 10/10/19 23:18 Urine Turbidity Clear (Clear) 10/10/19 23:18 Urine pH 6.0 (5.0-7.0) 10/10/19 23:18 Ur Specific [place] 1.015 (1.003-1.030) 10/10/19 23:18 Urine Protein 300 mg/dl mg/dL (Negative) 10/10/19 23:18 Urine Glucose (UA) 50 mg/dL (Negative) 10/10/19 23:18 Urine Ketones Neg mg/dL (Negative) 10/10/19 23:18 Urine Blood Sm (Negative) 10/10/19 23:18 Urine Nitrite Neg (Negative) 10/10/19 23:18 Urine Bilirubin Neg (Negative) 10/10/19 23:18 Urine Urobilinogen < 2.0 mg/dL (<2.0) 10/10/19 23:18 Ur Leukocyte Esterase Neg (Negative) 10/10/19 23:18 Urine WBC (Auto) 1.0 /HPF (0.0-6.0) 10/10/19 23:18 Urine RBC (Auto) 9.0 /HPF (0.0-6.0) 05/05/20 23:18 U Epithel Cells (Auto) < 1.0 /HPF (0-13.0) 10/10/19 23:18 Urine Bacteria (Auto) 1+ /HPF (Negative) 10/10/19 23:18 Hyaline Casts 6 /LPF 10/10/19 23:18 Urine Mucus Few /HPF 10/10/19 23:18 CSF Appearance Clear 10/19/19 14:20 CSF Color Colorless 10/19/19 14:20 CSF WBC 4 /mm3 (1-10) 10/19/19 14:20 CSF RBC 3 /mm3 (0-0) 10/19/19 14:20 CSF Seg Neutrophils 2.0 % (0-6) 10/19/19 14:20 CSF Lymphocytes % 50.0 % (40-80) 10/19/19 14: CSF Reactive Lymphs 0 % 10/19/19 14:20 CSF Monocytes % 48.0 % (15-45) 10/19/19 14:20 CSF Eosinophils % 0 % 10/19/19 14:20 CSF Basophils 0 % 10/19/19 14:20 CSF Pathologist Review C 10/19/19 14:20 CSF Glucose 48 mg/dL 10/19/19 14:20 CSF Total Protein 65 mg/dL 10/19/19 14:20 ARABELLA Screen Negative (Negative) 10/14/19 10:56 Proteinase 3 (PR3) Ab <1.0 AI (<1.0) 10/14/19 10:56 Myeloperoxidase Ab <1.0 AI (<1.0) 10/14/19 10:56 Complement C3 101 mg/dL () 10/14/19 10:56 Complement C4 43 mg/dL () 10/14/19 10:56 Syphilis IgG Antibody Reactive (NonReactive) A 10/15/19 14:53 RPR Titer 1:2 10/18/19 Unknown Coronavirus (PCR) Negative (Negative) 10/11/19 11:14 Hepatitis A IgM Ab Non-reactive (NonReactive) 10/15/19 20:27 Hep Bs Antigen Reactive (Negative) 10/15/19 20:27 Hep B Core IgM Ab Non-reactive (NonReactive) 10/15/19 20:27 Hepatitis C Antibody Non-reactive (NonReactive) 10/15/19 20:27 HIV 1&2 Antibody Rapid Non react (Non React) 10/14/19 10:56 HIV P24 Antigen Non react (Non React) 10/14/19 10:56 Influenza A (Rapid) Negative (Negative) 10/10/19 22:25 Influenza B (Rapid) Negative (Negative) 10/10/19 22:25 Schistocytes Smear None seen 10/14/19 10:56 Microbiology: Microbiology 10/19/19 14:20 Cerebral Spinal Fluid CSF Culture - Preliminary - Diagnostic Impressions Diagnostic Impressions: Echocardiogram 10/12/19 09:05 Transthoracic Echocardiogram Indication: Afib, HTN BP: 135/78 HR: 115 Conclusions *Global left ventricular systolic function is moderately decreased. *The estimated ejection fraction is 35-40%, but optimal assessment is limited by irregular heart rate. *Mild concentric left ventricular hypertrophy is observed. *The left and right atria are both severely dilated. *There is mild aortic regurgitation. *There is trace-mild mitral regurgitation. *There is moderate tricuspid regurgitation. *There is evidence of mild pulmonary hypertension. *The right ventricular systolic pressure is calculated at 28 mmHg. Findings Left Ventricle: The left ventricular chamber size is mildly dilated. Mild concentric left ventricular hypertrophy is observed. Global left ventricular systolic function is moderately decreased. The estimated ejection fraction is 35-40%. Left Atrium: The left atrium is severely dilated. Right Ventricle: The right ventricle is slightly dilated. Right Atrium: The right atrium is moderate to severely dilated. Aortic Valve: The aortic valve is trileaflet. The aortic valve leaflets are moderately thickened. There is mild aortic regurgitation. There is no evidence of aortic stenosis. Mitral Valve: The mitral valve leaflets are mildly thickened. There is trace of mitral regurgitation. There is no evidence of mitral stenosis. Tricuspid Valve: There is moderate tricuspid regurgitation. The right ventricular systolic pressure is calculated at 28 mmHg. There is evidence of mild pulmonary hypertension. Pulmonic Valve: There is mild pulmonic regurgitation. Pericardium: There is no pericardial effusion. Aorta: There is no dilatation of the aortic root. Venous: The inferior vena cava appears normal in size. Measurements Chambers 2D Name Value Normal Range IVSd (2D) 1.27 cm (0.6 - 1.1) LVPWd (2D) 1.06 cm (0.6 - 1.1) LVIDd (2D) 4.06 cm (3.7 - 5.6) LVIDs (2D) 2.91 cm (2 - 3.8) LV FS (2D) 28.16 % - EF Teichholz (2D) 54.96 % - Ao root diameter (2D) 2.83 cm (2 - 3.7) Volumes/Mass Name Value Normal Range LA ESV SP 4CH (A/L) 74.63 ml - LA ESV SP 2CH (A/L) 67.89 ml - LA ESV BP (A/L) 81.32 ml - LA ESV BP (A/L) index 54.21 ml/m2 - LA ESV SP 4CH (MOD) 65.06 ml - LA ESV SP 2CH (MOD) 65.08 ml - LA ESV BP (MOD) 74.22 ml - LA ESV BP (MOD) index 49.48 ml/m2 - LV EDV SP 4CH (MOD) 46.88 ml - LV ESV SP 4CH (MOD) 14.91 ml - EF SP 4CH (MOD) 68.19 % - LV EDV SP 2CH (MOD) 26.53 ml - LV ESV SP 2CH (MOD) 11.71 ml - EF SP 2CH (MOD) 55.86 % - LV EDV BP 37.95 ml - LV ESV BP 13.85 ml - BP EF (MOD) 63.51 % - Diastolic/Systolic Function Name Value Normal Range MV E-wave Vmax 0.8 m/sec - MV deceleration time 145.29 msec - Aortic Valve Name Value Normal Range AV Vmax 0.79 m/sec - AV VTI 9.87 cm - AV peak gradient 2.5 mmHg - AV mean gradient 0.94 mmHg - LVOT diameter 2.12 cm - LVOT Vmax 0.69 m/sec - LVOT VTI 12.18 cm - LVOT peak gradient 1.93 mmHg - LVOT mean gradient 1.04 mmHg - SV LVOT 42.84 ml - YAMILA (continuity Vmax) 3.08 cm2 - YAMILA (continuity VTI) 4.34 cm2 - AR PHT 498.2 msec - AR peak gradient 55.86 mmHg - Tricuspid Valve Name Value Normal Range TR Vmax 2.52 m/sec - TR peak gradient 25.41 mmHg - RAP 3 mmHg - RVSP 28 mmHg - Pulmonic Valve/Qp:Qs Name Value Normal Range PV Vmax 0.74 m/sec - PV VTI 10.83 cm - PV peak gradient 2.2 mmHg - PV mean gradient 1.08 mmHg - CT end-diastolic Vmax 1.28 m/sec - RVOT Vmax 0.01 m/sec - RVOT VTI 11.04 cm - RVOT peak gradient 2.38 mmHg - Miranda/IV: Voiding Method Diaper IV Catheter Type [Left Hand] Peripheral IV IV Catheter Type [Right VAS Cath Internal Jugular] IV Catheter Type [Left Forearm Peripheral IV ] IV Catheter Type [Right INT / Saline Lock Forearm] Active Medications - Current Medications Current Medications: Generic Name Dose Route Start Last Admin Trade Name Freq PRN Reason Stop Dose Admin Acetaminophen 650 mg 10/11/19 02:03 Tylenol PO Q4H PRN Pain MILD(1-3)/Fever >100.5/ANNE Aspirin 81 mg 10/14/19 10:00 10/19/19 09:01 Halfprin Ec PO Not Given QDAY [facility] Enoxaparin Sodium 30 mg 10/14/19 10:00 10/19/19 09:01 Enoxaparin SUB-Q Not Given QDAY NETO Hydralazine HCl 5 mg 10/11/19 08:00 Apresoline IV Q30MIN PRN Hypertension Dextrose 1,000 mls @ 35 mls/hr 10/16/19 10:00 10/20/19 02:44 D5w IV 125 mls/hr DIRECT NETO Administration Acyclovir 500 mg/ Sodium 110 mls @ 100 mls/hr 10/19/19 10:00 10/19/19 17:01 Chloride IV 100 mls/hr Q24HR NETO Administration Protocol Sodium Chloride 100 mls @ 999 mls/hr 10/19/19 09:00 Nacl 0.9% IV EMILIE PRN Hypotension Isosorbide Dinitrate/Hydralazine 1 each 10/13/19 14:00 10/20/19 06:42 Bidil 20/37.5mg PO 1 each Q8HR NETO Administration Labetalol HCl 10 mg 10/11/19 13:00 10/18/19 04:10 Labetalol IV 10 mg Q4H PRN Administration Hypertension Metoprolol Tartrate 50 mg 10/11/19 10:00 10/19/19 22:55 Metoprolol PO 50 mg BID NETO Administration Ondansetron HCl 4 mg 10/11/19 02:03 Zofran IV Q8H PRN Nausea And Vomiting Sodium Chloride 10 ml 10/11/19 10:00 10/19/19 22:55 Sodium Chloride Flush Syringe 10 Ml IV 10 ml BID NETO Administration Sodium Chloride 10 ml 10/11/19 02:03 Sodium Chloride Flush Syringe 10 Ml IV PRN PRN LINE FLUSH Nutrition/Malnutrition Assess - Dietary Evaluation Nutrition/Malnutrition Findings: Nutrition Notes Start: 10/11/19 13:24 Freq: Status: Active Protocol: Document 10/19/19 13:33 LM (Rec: 10/19/19 13:35 LM [id number]) Nutrition Notes Initial or Follow up Brief Note Current Diagnosis Acute Kidney Injury, Hypertension Other Pertinent Diagnosis on HD, dehydration, Afib, AMS Current Diet Cardiac Subjective/Other Information Pt getting HD and lumbar pucture today. Will order Nepro for pt for higher kcal and pt receiving HD. Nutrition Intervention Add Supplement/Snack (indicate name/kcal Nepro BID /protein ) Provides kCal: 850 Provides Protein (gm) 38 Follow-Up By: 10/23/19 Additional Comments F/U for intakes
[2019-10-20] MEDS: METOPROLOL TARTRATE 50 MG TAB PO SCH ×2 (13:25→21:39)
[2019-10-20] MEDS: ASPIRIN EC 81 MG TAB PO SCH (13:25)
[2019-10-20] MEDS: ACYCLOVIR 500 MG in SODIUM CHLORIDE 0.9% 100 ML IV SCH (13:25)
[2019-10-20] MEDS: ENOXAPARIN 30 MG/0.3 ML INJ SUB-Q SCH (13:25)
--- NOTE | 2019-10-20 14:33 | Progress Note ---
Assessment and Plan Cultures: 10/10/2019 blood culture: No growth A/P: 84-year-old male with hypertension, atrial fibrillation, dementia was brought into the emergency room with nausea, vomiting and decreased oral intake. He was also having fevers at home and his was seemingly unable to take care of him: #SIRS: Unclear etiology. CSF not consistent with meningitis. CXR without pneumonia. CT abdomen with mild nonspecific inflammation adjacent to the distal aorta. Blood cultures negative, UA without pyuria. Influenza rapid test negative, COVID-19 PCR negative, HIV negative, hepatitis C antibody negative. Hepatitis B surface antigen is reactive. #Acute encephalopathy: improving, unknown etiology. MRI brain shows small area of diffusion signal abnormality in the anterolateral cortex on the right ?post ictal. Given the degree of signal abnormality in the anterior temporal lobes, herpes encephalitis cannot entirely be excluded, but is unlikely. Fairly extensive white matter disease ?Vasculitis or subcortical arteriosclerotic encephalopathy. EEG no seizures. S/p LP on 10/18 glu 48, prot 65. CSF not consistent with meningitis. #Chronic hepatitis B: Hepatitis B surface antigen is positive. AST, ALT are not elevated. Hep B PCR ordered. Considering his age, and no ALT elevation or obvious clinical evidence of cirrhosis or hepatic decompensation, doubt terminal worker Hep B treatment is going to be of much benefit. #Acute kidney injury: Creatinine rising compared to admission. Nephrology following. Improving. #Mild thrombocytopenia: fluctuating. #Afib with RPR #Hypernatremia: better #RPR reactive 1:2. CSF not consistent with neurosyphilis Recs: stop acyclovir ID clinic f/u in 2 weeks Monitor mentation. Will sign off Darlene Shields MD Infectious Diseases Advertising Supervisor [facility], [place] M [phone] Subjective Date of service: 10/20/19 Principal diagnosis: Metabolic Encephalopathy Interval history: More alert, follows commands non verbal no fever Objective - Exam Narrative Exam: General appearance: alert in NAD Eyes: anicteric sclerae, moist conjunctivae; no lid-lag; PERRLA HENT: Atraumatic; oropharynx limited Lungs: CTA CV: RRR no murmur Abdomen: Soft, non-tender Extremities: no edema, no cyanosis Skin: No rash. Psych:no agitated Neuro: alert non verbal R neck HD cath - Constitutional Vitals: Vital Signs Temp Pulse Resp BP Pulse Ox 98.7 F 94 H 18 144/78 100 10/20/19 12:09 10/20/19 12:09 10/20/19 12:09 10/20/19 12:09 10/20/19 12:09 Temperature -Last 24 Hours Temperature 98.7 F Temperature 97.0 F Temperature 97.5 F Temperature 98.7 F Temperature 99.2 F Temperature 98.7 F - Labs CBC & Chem 7: 10/20/19 05:23 10/20/19 05:23 Labs: Abnormal lab results 10/20/19 10/20/19 Range/Units 05:23 05:23 WBC 13.9 H (4.5-11.0) K/mm3 RBC 2.43 L (3.65-5.03) M/mm3 Hgb 8.2 L (11.8-15.2) gm/dl Hct 23.9 L D (35.5-45.6) % MCV 98 H (84-94) fl MCH 34 H (28-32) pg Plt Count 107 L (140-440) K/mm3 Lymph % (Auto) 13.3 L (13.4-35.0) % [place] % (Auto) 8.3 H (0.0-7.3) % [place] # 1.2 H (0.0-0.8) K/mm3 Seg Neutrophils % 77.3 H (40.0-70.0) % Seg Neutrophils # 10.7 H (1.8-7.7) K/mm3 Potassium 3.4 L (3.6-5.0) mmol/L BUN 64 H (9-20) mg/dL Creatinine 2.8 H (0.8-1.5) mg/dL Glucose 162 H (75-100) mg/dL
--- NOTE | 2019-10-21 03:56 | Progress Note ---
Assessment and Plan Patient is an 84 y/o man w/ a h/o HTN, A-fib, who p/w altered mental status, nausea, vomiting, and was found to have failure to thrive, hypertensive urgency, A-fib w/ RVR, ARF requiring HD, SIRS, hypernatremia, lactic acidosis, leukocytosis. According to the patient's clinical findings, it is likely that he has metabolic encephalopathy, which is likely due to the aforementioned metabolic derangements. Plan: 1. Metabolic Encephalopathy - Likely in setting of hypertensive urgency, A-fib w/ RVR, ARF requiring HD, SIRS, hypernatremia, lactic acidosis, and leukocytosis. - Patient's mental status somewhat improved today, as he is not as lethargic as yesterday. - CT head: Lt. frontal white matter hypodensity, age indeterminant. - MRI Brain: right temporal area of diffusion restriction, which may be T2 shine-through vs. post-ictal change. Unlikely to be infarct, however can not be completely ruled out, given patient has A-fib. - Per cardiology, patient is not a good candidate for anti-coagulation for A-fib at this time. - Echo: EF 35-40%, LA severely dilated. - RPR not indicative of neurosyphilis, per ID. - Covid-19 negative. - CSF: WBC 4, RBC 3, Protein 65, Glucose 48. Not indicative of meningoencephalitis. Acyclovir was stopped per ID. - CSF viral PCRs pending. - EEG: no seizures or epileptiform activity. Generalized slowing. - Continue to correct metabolic abnormalities/infections per primary team - Will sign off, as I am not covering neurology service over the weekend. Please consult neurologist covering the service over the weekend for further neurologic monitoring and management. Thank you for allowing me to take part in the care of this patient. Dayne Power MD Neurology This clinical encounter was provided via live telemedicine portal. Consultative service was provided for neurology to support local providers. The Acute Teleneurology team should be contacted with any neurologic worsening or clinical changes, new test results, or new patient history that is reported to or discovered by the local team following completion of the teleneurology consultation, specifically that which has the potential to impact the consultative recommendations. Patient/Family was informed the Neurology Consult would happen via TeleHealth consult by way of interactive audio and video telecommunications and consented to receiving care in this manner. Due to the potential for life-threatening deterioration due to underlying neurologic illness, and limited resources available for patient care, telemedicine was used as means of patient care. Telemedicine consultation is limited in the extent of physical exam that can be virtually provided. Time spent evaluating patient includes time for face to face visit via telemedicine, review of medical records, imaging studies and discussion of findings with pro viders, the patient and/or family. Subjective Date of service: 10/20/19 Principal diagnosis: Metabolic Encephalopathy Interval history: No acute events overnight. Patient more alert today. Objective - Exam Narrative Exam: Patient is alert, lethargic, oriented only to self, otherwise nonverbal, follows 1-step commands. EOMI, VFF, tongue midline, no facial weakness noted. Patient able to move all extremities anti-gravity and symmetrically. W/d to pain in all extremities. Exam limited due to telemedicine encounter. - Vital Sign Vital Signs - 12hr 10/20/19 10/20/19 10/20/19 19:27 19:37 21:39 Temperature 98.3 F Pulse Rate 102 H 100 H Respiratory 18 Rate Blood Pressure 146/67 127/55 O2 Sat by Pulse Oximetry 10/20/19 23:29 Temperature 97.1 F L Pulse Rate 94 H Respiratory 18 Rate Blood Pressure 90/51 O2 Sat by Pulse 97 Oximetry - General Apperance Constitutional: comfortable - Laboratory Findings CBC and BMP: 10/20/19 05:23 10/20/19 05:23 Abnormal Lab Findings: Abnormal Labs 10/10/19 10/10/19 10/10/19 21:40 21:40 21:40 WBC 18.1 H RBC Hgb 15.4 H Hct 47.7 H MCV 101 H MCH 33 H MCHC Plt Count 132 L Lymph % (Auto) 5.3 L [place] % (Auto) Lymph # 1.0 L [place] # 1.3 H Seg Neutrophils % 86.9 H Seg Neuts % (Manual) Lymphocytes % (Manual) Seg Neutrophils # 15.7 H Seg Neutrophils # Man Lymphocytes # (Manual) PT INR Sodium Potassium Chloride Carbon Dioxide 17 L BUN 39 H Creatinine Glucose 139 H POC Glucose Lactic Acid 2.90 H* Calcium Phosphorus Total Bilirubin 2.50 H Lactate Dehydrogenase Total Creatine Kinase Syphilis IgG Antibody 10/10/19 10/10/19 10/11/19 21:40 23:04 01:13 WBC RBC Hgb Hct MCV MCH MCHC Plt Count Lymph % (Auto) [place] % (Auto) Lymph # [place] # Seg Neutrophils % Seg Neuts % (Manual) Lymphocytes % (Manual) Seg Neutrophils # Seg Neutrophils # Man Lymphocytes # (Manual) PT 15.1 H INR 1.14 H 1.18 H Sodium Potassium Chloride Carbon Dioxide BUN Creatinine Glucose POC Glucose Lactic Acid 3.20 H* Calcium Phosphorus Total Bilirubin Lactate Dehydrogenase Total Creatine Kinase Syphilis IgG Antibody 10/11/19 10/11/19 10/12/19 04:42 04:42 14:04 WBC 15.9 H RBC Hgb 15.5 H Hct 46.6 H MCV 101 H MCH 33 H MCHC Plt Count 81 L Lymph % (Auto) [place] % (Auto) Lymph # [place] # Seg Neutrophils % Seg Neuts % (Manual) 93.0 H Lymphocytes % (Manual) 2.0 L Seg Neutrophils # Seg Neutrophils # Man 14.8 H Lymphocytes # (Manual) 0.3 L PT INR Sodium Potassium Chloride Carbon Dioxide 21 L BUN 38 H Creatinine Glucose 183 H POC Glucose 140 H Lactic Acid Calcium Phosphorus Total Bilirubin Lactate Dehydrogenase Total Creatine Kinase Syphilis IgG Antibody 10/13/19 10/13/19 10/13/19 07:37 07:37 18:18 WBC 14.4 H RBC Hgb Hct MCV 100 H MCH 34 H MCHC Plt Count 86 L Lymph % (Auto) 6.6 L [place] % (Auto) 8.2 H Lymph # 0.9 L [place] # 1.2 H Seg Neutrophils % 84.9 H Seg Neuts % (Manual) Lymphocytes % (Manual) Seg Neutrophils # 12.2 H Seg Neutrophils # Man Lymphocytes # (Manual) PT INR Sodium Potassium Chloride 108.0 H Carbon Dioxide 14 L D BUN 100 H Creatinine 3.7 H D Glucose 148 H POC Glucose 139 H Lactic Acid Calcium Phosphorus Total Bilirubin Lactate Dehydrogenase Total Creatine Kinase Syphilis IgG Antibody 10/14/19 10/14/19 10/14/19 06:16 06:16 10:56 WBC RBC Hgb Hct MCV 100 H MCH 34 H MCHC Plt Count 90 L Lymph % (Auto) 5.7 L [place] % (Auto) Lymph # 0.6 L [place] # Seg Neutrophils % 88.4 H Seg Neuts % (Manual) Lymphocytes % (Manual) Seg Neutrophils # 8.6 H Seg Neutrophils # Man Lymphocytes # (Manual) PT INR Sodium 151 H Potassium 3.5 L Chloride 115.7 H Carbon Dioxide 14 L BUN 121 H Creatinine 4.1 H Glucose 162 H POC Glucose Lactic Acid Calcium 7.9 L Phosphorus Total Bilirubin Lactate Dehydrogenase 331 H Total Creatine Kinase 563 H Syphilis IgG Antibody 10/15/19 10/15/19 10/15/19 05:18 05:18 08:46 WBC RBC Hgb Hct MCV 99 H MCH 34 H MCHC Plt Count 98 L Lymph % (Auto) 6.4 L [place] % (Auto) Lymph # 0.6 L [place] # Seg Neutrophils % 86.8 H Seg Neuts % (Manual) Lymphocytes % (Manual) Seg Neutrophils # Seg Neutrophils # Man Lymphocytes # (Manual) PT 16.1 H INR 1.32 H Sodium 158 H Potassium 3.2 L Chloride 117.4 H Carbon Dioxide 20 L BUN 128 H Creatinine 3.8 H Glucose 120 H POC Glucose Lactic Acid Calcium Phosphorus 5.10 H Total Bilirubin Lactate Dehydrogenase Total Creatine Kinase Syphilis IgG Antibody 10/15/19 10/16/19 10/16/19 14:53 05:50 05:50 WBC RBC Hgb Hct MCV 100 H MCH 35 H MCHC 35 H Plt Count 99 L Lymph % (Auto) 8.3 L [place] % (Auto) 7.8 H Lymph # 0.7 L [place] # Seg Neutrophils % 82.3 H Seg Neuts % (Manual) Lymphocytes % (Manual) Seg Neutrophils # Seg Neutrophils # Man Lymphocytes # (Manual) PT INR Sodium 161 H* Potassium 3.3 L Chloride 121.2 H Carbon Dioxide BUN 134 H Creatinine 4.1 H Glucose 126 H POC Glucose Lactic Acid Calcium 8.0 L Phosphorus 5.80 H Total Bilirubin Lactate Dehydrogenase Total Creatine Kinase Syphilis IgG Antibody Reactive A 10/16/19 10/17/19 10/17/19 20:28 05:27 05:27 WBC RBC Hgb Hct MCV 100 H MCH 34 H MCHC Plt Count 83 L Lymph % (Auto) 12.5 L [place] % (Auto) 10.7 H Lymph # 1.0 L [place] # 0.9 H Seg Neutrophils % 75.7 H Seg Neuts % (Manual) Lymphocytes % (Manual) Seg Neutrophils # Seg Neutrophils # Man Lymphocytes # (Manual) PT INR Sodium 151 H D 151 H Potassium 3.0 L Chloride 107.8 H Carbon Dioxide BUN 54 H Creatinine 2.3 H Glucose 156 H POC Glucose Lactic Acid Calcium 7.8 L Phosphorus Total Bilirubin Lactate Dehydrogenase Total Creatine Kinase Syphilis IgG Antibody 10/18/19 10/18/19 10/19/19 09:49 09:49 05:22 WBC RBC 3.27 L Hgb 11.1 L Hct 32.6 L MCV 99 H 100 H MCH 34 H 34 H MCHC Plt Count 76 L 91 L Lymph % (Auto) 12.4 L [place] % (Auto) 10.1 H 8.9 H Lymph # 1.1 L [place] # 0.9 H Seg Neutrophils % 75.7 H 70.3 H Seg Neuts % (Manual) Lymphocytes % (Manual) Seg Neutrophils # Seg Neutrophils # Man Lymphocytes # (Manual) PT INR Sodium Potassium 3.3 L Chloride Carbon Dioxide BUN 44 H Creatinine 2.2 H Glucose 104 H POC Glucose Lactic Acid Calcium 7.8 L Phosphorus Total Bilirubin Lactate Dehydrogenase Total Creatine Kinase Syphilis IgG Antibody 10/19/19 10/19/19 10/20/19 05:22 08:00 05:23 WBC 13.9 H RBC 2.43 L Hgb 8.2 L Hct 23.9 L D MCV 98 H MCH 34 H MCHC Plt Count 107 L Lymph % (Auto) 13.3 L [place] % (Auto) 8.3 H Lymph # [place] # 1.2 H Seg Neutrophils % 77.3 H Seg Neuts % (Manual) Lymphocytes % (Manual) Seg Neutrophils # 10.7 H Seg Neutrophils # Man Lymphocytes # (Manual) PT INR 1.14 H Sodium Potassium 3.3 L Chloride Carbon Dioxide 21 L BUN 71 H Creatinine 2.6 H Glucose 133 H POC Glucose Lactic Acid Calcium 7.4 L Phosphorus Total Bilirubin Lactate Dehydrogenase 401 H Total Creatine Kinase Syphilis IgG Antibody 10/20/19 05:23 WBC RBC Hgb Hct MCV MCH MCHC Plt Count Lymph % (Auto) [place] % (Auto) Lymph # [place] # Seg Neutrophils % Seg Neuts % (Manual) Lymphocytes % (Manual) Seg Neutrophils # Seg Neutrophils # Man Lymphocytes # (Manual) PT INR Sodium Potassium 3.4 L Chloride Carbon Dioxide BUN 64 H Creatinine 2.8 H Glucose 162 H POC Glucose Lactic Acid Calcium Phosphorus Total Bilirubin Lactate Dehydrogenase Total Creatine Kinase Syphilis IgG Antibody
[2019-10-21] MEDS: ISOSORB DINIT/HYDRALAZINE 20-37.5MG TAB PO SCH ×2 (05:06→21:39)
[2019-10-21 05:31] LABS: Basophils % (Auto) 0.3 % (0.0-1.8); Eosinophils # (Auto) 0.1 K/mm3 (0.0-0.4); Eosinophils % (Auto) 1.1 % (0.0-4.3); Hemoglobin 6.1 gm/dl (11.8-15.2); Lymphocytes # (Auto) 1.6 K/mm3 (1.2-5.4); Mean Corpuscular HGB Conc 34 % (32-34); Mean Corpuscular Volume 100 fl (84-94); Monocytes # (Auto) 0.7 K/mm3 (0.0-0.8); Monocytes % (Auto) 6.6 % (0.0-7.3); Platelet Count 120 K/mm3 (140-440); Red Blood Count 1.78 M/mm3 (3.65-5.03); Red Cell Distribution Width 13.3 % (13.2-15.2)
[2019-10-21 05:57] LABS: Calcium 7.7 mg/dL (8.4-10.2)
[2019-10-21 06:08] LABS: Albumin 2.7 g/dL (3.8-4.8); Gamma Globulin 0.7 g/dL (0.8-1.7)
[2019-10-21 06:13] LABS: Hematocrit 17.7 % (35.5-45.6)
[2019-10-21] MEDS ORDERED: SODIUM CHLORIDE 0.9% 500 ML 500 ML IV ONE ×2 (08:00→10:00)
--- NOTE | 2019-10-21 09:26 | Progress Note ---
Assessment and Plan Assessment and Plan Acute renal failure, possible ischemic ATN from low BP, also possible TTP/HUS Sepsis Afib with RVR Hypotension Thrombocytopenia Hypokalemia Plan: cont to be anuric, likely will need permcath placement Wednesday and outpatient dialysis if no improvement in PRIMO, will try to hold HD during the weekend if possible. Check CXR in am for VS Add Hydralazine to BP regimen as BP high LDH cont to be elevated, hematology consult is not available, [id number] requested on 10/18 secondary GN work up was negative except for HBVsag and RPR, ID is following Hypernatremia-resolved Strict I&O monitoring Obtain daily weights Renally dose medications Avoid nephrotoxic agents Monitor electrolytes and renal function closely Subjective Date of service: 10/21/19 Principal diagnosis: Metabolic Encephalopathy Objective - Exam Narrative Exam: General appearance: alert in NAD Eyes: anicteric sclerae, moist conjunctivae; no lid-lag; PERRLA HENT: Atraumatic; oropharynx limited Lungs: CTA CV: RRR no murmur Abdomen: Soft, non-tender Extremities: no edema, no cyanosis Skin: No rash. Psych:no agitated Neuro: alert non verbal - Vital Signs Vital signs: Vital Signs - 12hr 10/20/19 10/20/19 10/21/19 21:39 23:29 04:00 Temperature 97.1 F L 98.4 F Pulse Rate 100 H 94 H Respiratory 18 18 Rate Blood Pressure 127/55 90/51 105/67 O2 Sat by Pulse 97 Oximetry 10/21/19 10/21/19 10/21/19 04:19 05:06 07:25 Temperature 97.4 F L Pulse Rate 101 H 99 H Respiratory 18 Rate Blood Pressure 105/67 126/73 O2 Sat by Pulse 100 Oximetry 10/21/19 08:03 Temperature Pulse Rate Respiratory 20 Rate Blood Pressure O2 Sat by Pulse 99 Oximetry - Lab 10/21/19 04:31 10/21/19 04:31 Most recent lab results Calcium 7.7 mg/dL (8.4-10.2) L 10/21/19 04:31 Phosphorus 3.40 mg/dL (2.5-4.5) 10/21/19 04:31 Medications & Allergies - Medications Allergies/Adverse Reactions: Allergies No Known Allergies Allergy (Unverified 10/10/19 21:31) Home Medications: Home Medications Medication Instructions Recorded Confirmed Last Taken Type Metoprolol 50 mg PO BID 10/10/19 10/18/19 Unknown History Active Medications: Generic Name Dose Route Start Last Admin Trade Name Freq PRN Reason Stop Dose Admin Acetaminophen 650 mg 10/11/19 02:03 Tylenol PO Q4H PRN Pain MILD(1-3)/Fever >100.5/ANNE Aspirin 81 mg 10/14/19 10:00 10/20/19 13:25 Halfprin Ec PO 81 mg QDAY NETO Administration Enoxaparin Sodium 30 mg 10/14/19 10:00 10/20/19 13:25 Enoxaparin SUB-Q 30 mg QDAY NETO Administration Hydralazine HCl 5 mg 10/11/19 08:00 Apresoline IV Q30MIN PRN Hypertension Dextrose 1,000 mls @ 35 mls/hr 10/16/19 10:00 10/20/19 02:44 D5w IV 125 mls/hr DIRECT NETO Administration Sodium Chloride 100 mls @ 999 mls/hr 10/19/19 09:00 Nacl 0.9% IV EMILIE PRN Hypotension Sodium Chloride 500 mls @ 0 mls/hr 10/21/19 10:00 Nacl 0.9% 500 Ml IV 10/21/19 10:01 ONCE ONE As Directed Isosorbide Dinitrate/Hydralazine 1 each 10/13/19 14:00 10/21/19 05:06 Bidil 20/37.5mg PO 1 each Q8HR NETO Administration Labetalol HCl 10 mg 10/11/19 13:00 10/18/19 04:10 Labetalol IV 10 mg Q4H PRN Administration Hypertension Metoprolol Tartrate 50 mg 10/11/19 10:00 10/20/19 21:39 Metoprolol PO 50 mg BID NETO Administration Ondansetron HCl 4 mg 10/11/19 02:03 Zofran IV Q8H PRN Nausea And Vomiting Sodium Chloride 10 ml 10/11/19 10:00 10/20/19 21:39 Sodium Chloride Flush Syringe 10 Ml IV 10 ml BID NETO Administration Sodium Chloride 10 ml 10/11/19 02:03 Sodium Chloride Flush Syringe 10 Ml IV PRN PRN LINE FLUSH
--- NOTE | 2019-10-21 09:51 | Progress Note ---
Assessment and Plan - Patient Problems (1) Atrial fibrillation Current Visit: Yes Status: Acute Plan to address problem: We will continue current management of atrial fibrillation on a rate control strategy. (2) Cardiomyopathy Current Visit: Yes Status: Acute Plan to address problem: Patient has a moderate severity cardiomyopathy, continue guideline directed medical therapy as tolerated. Subjective Date of service: 10/21/19 Principal diagnosis: Metabolic Encephalopathy Interval history: Patient appears frail and cachectic, no acute distress, no new cardiac issues Objective Vital Signs Temp Pulse Resp BP Pulse Ox 10/21/19 08:03 20 99 10/21/19 07:25 97.4 F L 99 H 18 126/73 100 10/21/19 05:06 105/67 10/21/19 04:19 101 H 10/21/19 04:00 98.4 F 18 105/67 10/20/19 23:29 97.1 F L 94 H 18 90/51 97 10/20/19 21:39 100 H 127/55 10/20/19 19:37 98.3 F 18 146/67 10/20/19 19:27 102 H 10/20/19 15:22 42 L 91 10/20/19 12:09 98.7 F 94 H 18 144/78 100 - Physical Examination General: No Apparent Distress HEENT: Positive: PERRL Neck: Positive: neck supple Cardiac: Positive: irregularly irregular Lungs: Positive: Decreased Breath Sounds Neuro: Positive: Weakness Abdomen: Positive: Soft, Active Bowel Sounds Skin: Positive: Clear Extremities: Absent: edema - Labs and Meds CBC 10/21/19 Range/Units 04:31 WBC 10.4 (4.5-11.0) K/mm3 RBC 1.78 L (3.65-5.03) M/mm3 Hgb 6.1 L (11.8-15.2) gm/dl Hct 17.7 L* D (35.5-45.6) % Plt Count 120 L (140-440) K/mm3 Lymph # 1.6 (1.2-5.4) K/mm3 Leslie # 0.7 (0.0-0.8) K/mm3 Eos # 0.1 (0.0-0.4) K/mm3 Baso # 0.0 (0.0-0.1) K/mm3 Comprehensive Metabolic Panel 10/15/19 10/21/19 Range/Units 08:46 04:31 Sodium 139 (137-145) mmol/L Potassium 3.3 L (3.6-5.0) mmol/L Chloride 102.8 (98-107) mmol/L Carbon Dioxide 18 L (22-30) mmol/L BUN 86 H (9-20) mg/dL Creatinine 2.9 H (0.8-1.5) mg/dL Glucose 159 H (75-100) mg/dL Calcium 7.7 L (8.4-10.2) mg/dL Albumin 2.7 L (3.8-4.8) g/dL
[2019-10-21] MEDS: METOPROLOL TARTRATE 50 MG TAB PO SCH ×2 (10:00→21:40)
--- NOTE | 2019-10-21 10:16 | Progress Note ---
Assessment and Plan Assessment and plan: Toxic metabolic encephalopathy. Treat underlying causes SIRS No obvious infection Chest x-ray negative, CT of the abdomen showed some mild nonspecific inflammation near the distal aorta. ID following A. fib with RVR, status post conversion DC heparin drip, patient thrombocytopenic cardiology following Acute metabolic encephalopathy altered mental status,confusion Anemia. Type and cross and transfuse 2 units PRBCs. Melena. GI consulted Chronic hepatitis B. hepatitis B surface antigen positive. LFTs not elevated. 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 Slight improvement. Cr 3.[address] Oliveira, hematology for low plaletels but he says he does not work here anymore. called and updated daughter on [phone] 10/16/19 patient presented with alterd mental status,nausea,vomiting. Found to have PRIMO due to ATN, thrombocytopenia. Cr worsening. Discussed with Nephrology yesterday. Plan to initiate dialysis if he gets worse. labs show Syphilis IgG antibody positive. ID to evaluate. 10/17/2019. Follow-up hepatitis B PCR. Check MRI of brain. Follow-up RPR with titer to determine active syphilis. 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 If mental status does not improve consider LP. 10/18/2019. Neurology evaluated the patient and diagnosed with metabolic encephalopathy with etiology likely secondary to hypertensive urgency, A-fib w/ RVR, ARF requiring HD, SIRS, hypernatremia, lactic acidosis, and leukocytosis. ID team investigating for possible syphilis. As patient was not found to have an infectious source as of yet, agree with ID that MRI brain would aid in further investigating potential of meningo-encephalitis, and to rule out any intracranial pathology contributing to current mental status. If patient's mental status does not continue to improve as metabolic/infectious abnormalities are corrected, then will consider LP/CSF studies. 10/19/2019. Neurology evaluated the patient and diagnosed with metabolic encephalopathy with etiology likely secondary to hypertensive urgency, A-fib w/ RVR, ARF requiring HD, SIRS, hypernatremia, lactic acidosis, and leukocytosis. CT head: Lt. frontal white matter hypodensity, age indeterminant. MRI Brain: right temporal area of diffusion restriction, which may be T2 shine-through vs. post-ictal change vs. encephalitis. Unlikely to be infarct, however can not be completely ruled out, given patient has A-fib. Echo: EF 35-40%, LA severely dilated. EEG pending. 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 Follow-up lumbar puncture. 10/20/19. ?meningitis ?neurosyphilis. ID to rule out neurosyphilis, HSV encephalitis. MRI brain shows small area of diffusion signal abnormality in the anterolateral cortex on the right. CSF studies pending. Continue acyclovir 500 mg IV daily per ID. From kidney perspective, the patient cont to be anuric, likely will need permcath placement Wednesday and outpatient dialysis if no improvement in PRIMO, will try to hold HD during the weekend if possible. LDH cont to be elevated, hematology consult is not available, [id number] requested on 10/18. Secondary GN work up was negative except for HBVsag and RPR, ID is following. With regards to atrial fibrillation, patient remains on metoprolol for rate control. Pt has been deemed to be a poor candidate for watermaster anticoagulation given overall frailty and thrombocytopenia. 10/21/2019. Patient noted to have anemia this morning and reports of melena per nursing. Patient will receive 2 units PRBCs and follow-up H&H. GI consultation pending. Stop aspirin. Protonix drip. CSF not consistent with meningitis/encephalitis. Acyclovir has been discontinued by ID. Patient with metabolic encephalopathy secondary to renal failure. Patient with acute renal failure likely ischemic ATN from hypotension. Patient continues to be anuric and will likely need PermCath placement Wednesday and outpatient dialysis if no improvement in PRIMO, will try to hold HD during the weekend if possible per nephrology recommendation. Neurology following. History Interval history: No new issues overnight Hospitalist Physical - Constitutional Vitals: Temp Pulse Resp BP Pulse Ox 97.4 F L 99 H 20 126/73 99 10/21/19 07:25 10/21/19 07:25 10/21/19 08:03 10/21/19 07:25 10/21/19 08:03 General appearance: Present: no acute distress - EENT Eyes: Present: PERRL, EOM intact ENT: hearing intact, clear oral mucosa, dentition normal - Neck Neck: Present: supple, normal ROM - Respiratory Respiratory effort: normal Respiratory: bilateral: CTA - Cardiovascular Rhythm: regular Heart Sounds: Present: S1 & S2. Absent: gallop, rub - Extremities Extremities: no ischemia, No edema, Full ROM - Abdominal General gastrointestinal: soft, non-tender, non-distended, normal bowel sounds - Integumentary Integumentary: Present: clear, warm, dry - Neurologic Neurologic: CNII-XII intact, moves all extremities HEART Score - HEART Score Troponin: Troponin T 0.024 ng/mL (0.00-0.029) 10/10/19 21:40 Results - Labs CBC & Chem 7: 10/21/19 04:31 10/21/19 04:31 Labs: Laboratory Last Values WBC 10.4 K/mm3 (4.5-11.0) 10/21/19 04:31 RBC 1.78 M/mm3 (3.65-5.03) L 10/21/19 04:31 Hgb 6.1 gm/dl (11.8-15.2) L 10/21/19 04:31 Hct 17.7 % (35.5-45.6) L* D 10/21/19 04:31 MCV 100 fl (84-94) H 10/21/19 04:31 MCH 34 pg (28-32) H 10/21/19 04:31 MCHC 34 % (32-34) 10/21/19 04:31 RDW 13.3 % (13.2-15.2) 10/21/19 04:31 Plt Count 120 K/mm3 (140-440) L 10/21/19 04:31 Lymph % (Auto) 15.0 % (13.4-35.0) 10/21/19 04:31 [place] % (Auto) 6.6 % (0.0-7.3) 10/21/19 04:31 Eos % (Auto) 1.1 % (0.0-4.3) 10/21/19 04:31 Baso % (Auto) 0.3 % (0.0-1.8) 10/21/19 04:31 Lymph # 1.6 K/mm3 (1.2-5.4) 10/21/19 04:31 [place] # 0.7 K/mm3 (0.0-0.8) 10/21/19 04:31 Eos # 0.1 K/mm3 (0.0-0.4) 10/21/19 04:31 Baso # 0.0 K/mm3 (0.0-0.1) 10/21/19 04:31 Add Manual Diff Complete 10/11/19 04:42 Total Counted 100 10/11/19 04:42 Seg Neutrophils % 77.0 % (40.0-70.0) H 10/21/19 04:31 Seg Neuts % (Manual) 93.0 % (40.0-70.0) H 10/11/19 04:42 Band Neutrophils % 1.0 % 10/11/19 04:42 Lymphocytes % (Manual) 2.0 % (13.4-35.0) L 10/11/19 04:42 Reactive Lymphs % (Man) 0 % 10/11/19 04:42 Monocytes % (Manual) 4.0 % (0.0-7.3) 10/11/19 04:42 Eosinophils % (Manual) 0 % (0.0-4.3) 10/11/19 04:42 Basophils % (Manual) 0 % (0.0-1.8) 10/11/19 04:42 Metamyelocytes % 0 % 10/11/19 04:42 Myelocytes % 0 % 10/11/19 04:42 Promyelocytes % 0 % 10/11/19 04:42 Blast Cells % 0 % 10/11/19 04:42 Nucleated RBC % Not Reportable 10/11/19 04:42 Seg Neutrophils # 8.0 K/mm3 (1.8-7.7) H 10/21/19 04:31 Seg Neutrophils # Man 14.8 K/mm3 (1.8-7.7) H 10/11/19 04:42 Band Neutrophils # 0.2 K/mm3 10/11/19 04:42 Lymphocytes # (Manual) 0.3 K/mm3 (1.2-5.4) L 10/11/19 04:42 Abs React Lymphs (Man) 0.0 K/mm3 10/11/19 04:42 Monocytes # (Manual) 0.6 K/mm3 (0.0-0.8) 10/11/19 04:42 Eosinophils # (Manual) 0.0 K/mm3 (0.0-0.4) 10/11/19 04:42 Basophils # (Manual) 0.0 K/mm3 (0.0-0.1) 10/11/19 04:42 Metamyelocytes # 0.0 K/mm3 10/11/19 04:42 Myelocytes # 0.0 K/mm3 10/11/19 04:42 Promyelocytes # 0.0 K/mm3 10/11/19 04:42 Blast Cells # 0.0 K/mm3 10/11/19 04:42 WBC Morphology Not Reportable 10/11/19 04:42 Hypersegmented Neuts Not Reportable 10/11/19 04:42 Hyposegmented Neuts Not Reportable 10/11/19 04:42 Hypogranular Neuts Not Reportable 10/11/19 04:42 Smudge Cells Not Reportable 10/11/19 04:42 Toxic Granulation Not Reportable 10/11/19 04:42 Toxic Vacuolation Not Reportable 10/11/19 04:42 Dohle Bodies Not Reportable 10/11/19 04:42 Pelger-Huet Anomaly Not Reportable 10/11/19 04:42 Glenys Rods Not Reportable 10/11/19 04:42 Platelet Estimate Consistent w auto 10/11/19 04:42 Clumped Platelets Not Reportable 10/11/19 04:42 Plt Clumps, EDTA Not Reportable 10/11/19 04:42 Large Platelets Not Reportable 10/11/19 04:42 Giant Platelets Not Reportable 10/11/19 04:42 Platelet Satelliting Not Reportable 10/11/19 04:42 Plt Morphology Comment Not Reportable 10/11/19 04:42 RBC Morphology Not Reportable 10/11/19 04:42 Dimorphic RBCs Not Reportable 10/11/19 04:42 Polychromasia Not Reportable 10/11/19 04:42 Hypochromasia Not Reportable 10/11/19 04:42 Poikilocytosis Not Reportable 10/11/19 04:42 Anisocytosis Not Reportable 10/11/19 04:42 Microcytosis Not Reportable 10/11/19 04:42 Macrocytosis Not Reportable 10/11/19 04:42 Spherocytes Not Reportable 10/11/19 04:42 Pappenheimer Bodies Not Reportable 10/11/19 04:42 Sickle Cells Not Reportable 10/11/19 04:42 Target Cells Not Reportable 10/11/19 04:42 Tear Drop Cells Not Reportable 10/11/19 04:42 Ovalocytes Not Reportable 10/11/19 04:42 Helmet Cells Not Reportable 10/11/19 04:42 [place] Bodies Not Reportable 10/11/19 04:42 [place] Rings Not Reportable 10/11/19 04:42 [place] Cells Not Reportable 10/11/19 04:42 Bite Cells Not Reportable 10/11/19 04:42 Crenated Cell Not Reportable 10/11/19 04:42 Elliptocytes Rare 10/11/19 04:42 Acanthocytes (Spur) Not Reportable 10/11/19 04:42 Rouleaux Not Reportable 10/11/19 04:42 Hemoglobin C Crystals Not Reportable 10/11/19 04:42 Schistocytes Not Reportable 10/11/19 04:42 Malaria parasites Not Reportable 10/11/19 04:42 Robin Bodies Not Reportable 10/11/19 04:42 Hem Pathologist Commnt No 10/11/19 04:42 PT 14.7 Sec. (12.2-14.9) 10/19/19 08:00 INR 1.14 (0.87-1.13) H 10/19/19 08:00 APTT 34.3 Sec. (24.2-36.6) 10/19/19 08:00 Sodium 139 mmol/L (137-145) 10/21/19 04:31 Potassium 3.3 mmol/L (3.6-5.0) L 10/21/19 04:31 Chloride 102.8 mmol/L (98-107) 10/21/19 04:31 Carbon Dioxide 18 mmol/L (22-30) L 10/21/19 04:31 Anion Gap 22 mmol/L 10/21/19 04:31 BUN 86 mg/dL (9-20) H 10/21/19 04:31 Creatinine 2.9 mg/dL (0.8-1.5) H 10/21/19 04:31 Estimated GFR 21 ml/min 10/21/19 04:31 BUN/Creatinine Ratio 30 % 10/21/19 04:31 Glucose 159 mg/dL (75-100) H 10/21/19 04:31 POC Glucose 139 (70-105) H 10/13/19 18:18 Lactic Acid 3.20 mmol/L (0.7-2.0) H* 10/10/19 23:04 Calcium 7.7 mg/dL (8.4-10.2) L 10/21/19 04:31 Phosphorus 3.40 mg/dL (2.5-4.5) 10/21/19 04:31 Total Bilirubin 2.50 mg/dL (0.1-1.2) H 10/10/19 21:40 AST 39 units/L (5-40) 10/10/19 21:40 ALT 22 units/L (7-56) 10/10/19 21:40 Alkaline Phosphatase 102 units/L (35-129) 10/10/19 21:40 Ammonia 54.0 umol/L (25-60) 10/10/19 21:40 Lactate Dehydrogenase 401 units/L (91-180) H 10/19/19 05:22 Total Creatine Kinase 563 units/L (55-170) H 10/14/19 10:56 Troponin T 0.024 ng/mL (0.00-0.029) 10/10/19 21:40 Serum Total Protein 5.4 g/dL (6.1-8.1) L 10/15/19 08:46 Total Protein 7.6 g/dL (6.3-8.2) 10/10/19 21:40 Albumin 2.7 g/dL (3.8-4.8) L 10/15/19 08:46 Albumin/Globulin Ratio 1.2 % 10/10/19 21:40 Ovmjd-5-Qvnbkdjcu 0.5 g/dL (0.2-0.3) H 10/15/19 08:46 Rccgy-4-Fgkufqwtl 0.9 g/dL (0.5-0.9) 10/15/19 08:46 Beta Globulins 0.3 g/dL (0.2-0.5) 10/15/19 08:46 Gamma Globulins 0.7 g/dL (0.8-1.7) L 10/15/19 08:46 Abnorm Protein Band 1 see below 10/15/19 08:46 PEP Interpretation see below H 10/15/19 08:46 TSH 2.550 mlU/mL (0.270-4.200) 10/10/19 21:40 Urine Color Yellow (Yellow) 10/10/19 23:18 Urine Turbidity Clear (Clear) 10/10/19 23:18 Urine pH 6.0 (5.0-7.0) 10/10/19 23:18 Ur Specific [place] 1.015 (1.003-1.030) 10/10/19 23:18 Urine Protein 300 mg/dl mg/dL (Negative) 10/10/19 23:18 Urine Glucose (UA) 50 mg/dL (Negative) 10/10/19 23:18 Urine Ketones Neg mg/dL (Negative) 10/10/19 23:18 Urine Blood Sm (Negative) 10/10/19 23:18 Urine Nitrite Neg (Negative) 10/10/19 23:18 Urine Bilirubin Neg (Negative) 10/10/19 23:18 Urine Urobilinogen < 2.0 mg/dL (<2.0) 10/10/19 23:18 Ur Leukocyte Esterase Neg (Negative) 10/10/19 23:18 Urine WBC (Auto) 1.0 /HPF (0.0-6.0) 10/10/19 23:18 Urine RBC (Auto) 9.0 /HPF (0.0-6.0) 10/10/19 23:18 U Epithel Cells (Auto) < 1.0 /HPF (0-13.0) 10/10/19 23:18 Urine Bacteria (Auto) 1+ /HPF (Negative) 10/10/19 23:18 Hyaline Casts 6 /LPF 10/10/19 23:18 Urine Mucus Few /HPF 10/10/19 23:18 CSF Appearance Clear 10/19/19 14:20 CSF Color Colorless 10/19/19 14:20 CSF WBC 4 /mm3 (1-10) 10/19/19 14:20 CSF RBC 3 /mm3 (0-0) 10/19/19 14:20 CSF Seg Neutrophils 2.0 % (0-6) 10/19/19 14:20 CSF Lymphocytes % 50.0 % (40-80) 10/19/19 14:20 CSF Reactive Lymphs 0 % 10/19/19 14:20 CSF Monocytes % 48.0 % (15-45) 10/19/19 14:20 CSF Eosinophils % 0 % 10/19/19 14:20 CSF Basophils 0 % 10/19/19 14:20 CSF Pathologist Review C 10/19/19 14:20 CSF Glucose 48 mg/dL 10/19/19 14:20 CSF Total Protein 65 mg/dL 10/19/19 14:20 ARABELLA Screen Negative (Negative) 10/14/19 10:56 Proteinase 3 (PR3) Ab <1.0 AI (<1.0) 10/14/19 10:56 Myeloperoxidase Ab <1.0 AI (<1.0) 10/14/19 10:56 Complement C3 101 mg/dL () 10/14/19 10:56 Complement C4 43 mg/dL () 10/14/19 10:56 Syphilis IgG Antibody Reactive (NonReactive) A 10/15/19 14:53 RPR Titer 1:2 10/18/19 Unknown Coronavirus (PCR) Negative (Negative) 10/11/19 11:14 Hepatitis A IgM Ab Non-reactive (NonReactive) 10/15/19 20:27 Hep Bs Antigen Reactive (Negative) 10/15/19 20:27 Hep B Core IgM Ab Non-reactive (NonReactive) 10/15/19 20:27 Hepatitis C Antibody Non-reactive (NonReactive) 10/15/19 20:27 HIV 1&2 Antibody Rapid Non react (Non React) 10/14/19 10:56 HIV P24 Antigen Non react (Non React) 10/14/19 10:56 Influenza A (Rapid) Negative (Negative) 10/10/19 22:25 Influenza B (Rapid) Negative (Negative) 10/10/19 22:25 Schistocytes Smear None seen 10/14/19 10:56 Blood Type B POSITIVE 10/21/19 06:38 Antibody Screen Negative 10/21/19 06:38 Crossmatch See Detail 10/21/19 06:38 Microbiology: Microbiology 10/19/19 14:20 Cerebral Spinal Fluid CSF Culture - Preliminary - Diagnostic Impressions Diagnostic Impressions: Echocardiogram 10/12/19 09:05 Transthoracic Echocardiogram Indication: Afib, HTN BP: 135/78 HR: 115 Conclusions *Global left ventricular systolic function is moderately decreased. *The estimated ejection fraction is 35-40%, but optimal assessment is limited by irregular heart rate. *Mild concentric left ventricular hypertrophy is observed. *The left and right atria are both severely dilated. *There is mild aortic regurgitation. *There is trace-mild mitral regurgitation. *There is moderate tricuspid regurgitation. *There is evidence of mild pulmonary hypertension. *The right ventricular systolic pressure is calculated at 28 mmHg. Findings Left Ventricle: The left ventricular chamber size is mildly dilated. Mild concentric left ventricular hypertrophy is observed. Global left ventricular systolic function is moderately decreased. The estimated ejection fraction is 35-40%. Left Atrium: The left atrium is severely dilated. Right Ventricle: The right ventricle is slightly dilated. Right Atrium: The right atrium is moderate to severely dilated. Aortic Valve: The aortic valve is trileaflet. The aortic valve leaflets are moderately thickened. There is mild aortic regurgitation. There is no evidence of aortic stenosis. Mitral Valve: The mitral valve leaflets are mildly thickened. There is trace of mitral regurgitation. There is no evidence of mitral stenosis. Tricuspid Valve: There is moderate tricuspid regurgitation. The right ventricular systolic pressure is calculated at 28 mmHg. There is evidence of mild pulmonary hypertension. Pulmonic Valve: There is mild pulmonic regurgitation. Pericardium: There is no pericardial effusion. Aorta: There is no dilatation of the aortic root. Venous: The inferior vena cava appears normal in size. Measurements Chambers 2D Name Value Normal Range IVSd (2D) 1.27 cm (0.6 - 1.1) LVPWd (2D) 1.06 cm (0.6 - 1.1) LVIDd (2D) 4.06 cm (3.7 - 5.6) LVIDs (2D) 2.91 cm (2 - 3.8) LV FS (2D) 28.16 % - EF Teichholz (2D) 54.96 % - Ao root diameter (2D) 2.83 cm (2 - 3.7) Volumes/Mass Name Value Normal Range LA ESV SP 4CH (A/L) 74.63 ml - LA ESV SP 2CH (A/L) 67.89 ml - LA ESV BP (A/L) 81.32 ml - LA ESV BP (A/L) index 54.21 ml/m2 - LA ESV SP 4CH (MOD) 65.06 ml - LA ESV SP 2CH (MOD) 65.08 ml - LA ESV BP (MOD) 74.22 ml - LA ESV BP (MOD) index 49.48 ml/m2 - LV EDV SP 4CH (MOD) 46.88 ml - LV ESV SP 4CH (MOD) 14.91 ml - EF SP 4CH (MOD) 68.19 % - LV EDV SP 2CH (MOD) 26.53 ml - LV ESV SP 2CH (MOD) 11.71 ml - EF SP 2CH (MOD) 55.86 % - LV EDV BP 37.95 ml - LV ESV BP 13.85 ml - BP EF (MOD) 63.51 % - Diastolic/Systolic Function Name Value Normal Range MV E-wave Vmax 0.8 m/sec - MV deceleration time 145.29 msec - Aortic Valve Name Value Normal Range AV Vmax 0.79 m/sec - AV VTI 9.87 cm - AV peak gradient 2.5 mmHg - AV mean gradient 0.94 mmHg - LVOT diameter 2.12 cm - LVOT Vmax 0.69 m/sec - LVOT VTI 12.18 cm - LVOT peak gradient 1.93 mmHg - LVOT mean gradient 1.04 mmHg - SV LVOT 42.84 ml - YAMILA (continuity Vmax) 3.08 cm2 - YAMILA (continuity VTI) 4.34 cm2 - AR PHT 498.2 msec - AR peak gradient 55.86 mmHg - Tricuspid Valve Name Value Normal Range TR Vmax 2.52 m/sec - TR peak gradient 25.41 mmHg - RAP 3 mmHg - RVSP 28 mmHg - Pulmonic Valve/Qp:Qs Name Value Normal Range PV Vmax 0.74 m/sec - PV VTI 10.83 cm - PV peak gradient 2.2 mmHg - PV mean gradient 1.08 mmHg - TN end-diastolic Vmax 1.28 m/sec - RVOT Vmax 0.01 m/sec - RVOT VTI 11.04 cm - RVOT peak gradient 2.38 mmHg - Miranda/IV: Voiding Method Condom Catheter IV Catheter Type [Left Hand] Peripheral IV IV Catheter Type [Right VAS Cath Internal Jugular] IV Catheter Type [Left Forearm Peripheral IV ] IV Catheter Type [Right INT / Saline Lock Forearm] Active Medications - Current Medications Current Medications: Generic Name Dose Route Start Last Admin Trade Name Freq PRN Reason Stop Dose Admin Acetaminophen 650 mg 10/11/19 02:03 Tylenol PO Q4H PRN Pain MILD(1-3)/Fever >100.5/ANNE Aspirin 81 mg 10/14/19 10:00 10/20/19 13:25 Halfprin Ec PO 81 mg QDAY NETO Administration Enoxaparin Sodium 30 mg 10/14/19 10:00 10/20/19 13:25 Enoxaparin SUB-Q 30 mg QDAY NETO Administration Hydralazine HCl 5 mg 10/11/19 08:00 Apresoline IV Q30MIN PRN Hypertension Dextrose 1,000 mls @ 35 mls/hr 10/16/19 10:00 10/20/19 02:44 D5w IV 125 mls/hr DIRECT NETO Administration Sodium Chloride 100 mls @ 999 mls/hr 10/19/19 09:00 Nacl 0.9% IV EMILIE PRN Hypotension Isosorbide Dinitrate/Hydralazine 1 each 10/13/19 14:00 10/21/19 05:06 Bidil 20/37.5mg PO 1 each Q8HR NETO Administration Labetalol HCl 10 mg 10/11/19 13:00 10/18/19 04:10 Labetalol IV 10 mg Q4H PRN Administration Hypertension Metoprolol Tartrate 50 mg 10/11/19 10:00 10/20/19 21:39 Metoprolol PO 50 mg BID NETO Administration Ondansetron HCl 4 mg 10/11/19 02:03 Zofran IV Q8H PRN Nausea And Vomiting Sodium Chloride 10 ml 10/11/19 10:00 10/20/19 21:39 Sodium Chloride Flush Syringe 10 Ml IV 10 ml BID NETO Administration Sodium Chloride 10 ml 10/11/19 02:03 Sodium Chloride Flush Syringe 10 Ml IV PRN PRN LINE FLUSH Nutrition/Malnutrition Assess - Dietary Evaluation Nutrition/Malnutrition Findings: Nutrition Notes Start: 10/11/19 13:24 Freq: Status: Active Protocol: Document 10/19/19 13:33 LM (Rec: 10/19/19 13:35 LM [id number]) Nutrition Notes Initial or Follow up Brief Note Current Diagnosis Acute Kidney Injury, Hypertension Other Pertinent Diagnosis on HD, dehydration, Afib, AMS Current Diet Cardiac Subjective/Other Information Pt getting HD and lumbar pucture today. Will order Nepro for pt for higher kcal and pt receiving HD. Nutrition Intervention Add Supplement/Snack (indicate name/kcal Nepro BID /protein ) Provides kCal: 850 Provides Protein (gm) 38 Follow-Up By: 10/23/19 Additional Comments F/U for intakes
[2019-10-21] MEDS ORDERED: PANTOPRAZOLE 40 MG INJ IV ONE (11:00)
[2019-10-21] MEDS: hydrALAZINE 25 MG TAB PO SCH ×2 (15:00→21:40)
[2019-10-21] MEDS: PANTOPRAZOLE 80 MG in SODIUM CHLORIDE 0.9% 100 ML IV SCH ×2 (15:00→22:03)
--- NOTE | 2019-10-21 15:57 | Consultation ---
History of Present Illness - Reason for Consult Consult date: 10/21/19 GI bleed Requesting physician: LAVELL BONILLA - History of Present Illness 84 yo [place] man admitted 10/09 with nausea vomiting decreased p.o. intake, and mental status changes. Here, he has been found to have a variety of problems including renal failure and SIRS, as well as atrial fibrillation. Today, he was noted to have black liquid stool and GI consult was called. Of note, his hemoglobin was 15 on admission. On October 17, it came back at 12.7. On October 18, hemoglobin was 11.1, down to 8.2 yesterday, and this morning it was 6.1. GI consult is obtained for evaluation. Patient is nonverbal and noncommunicative and unable to give a history. I spoke with the patient's son, at [phone], an d there is no known history of peptic ulcer disease. 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 On seeing him at 1530 today, patient has only had 1 black liquid bowel movement since 0700. No nausea or vomiting. Patient is not on blood thinners at present. He has not been hypotensive or tachycardic. Meds reviewed. Past History Past Medical History: atrial fib, hepatitis (B), hypertension, other (A-fib) Past Surgical History: appendectomy Social history: , lives with family. denies: alcohol abuse Family history: no significant family history Medications and Allergies Allergies Allergy/AdvReac Type Severity Reaction Status Date / Time No Known Allergies Allergy Unverified 10/10/19 21:31 Home Medications Medication Instructions Recorded Confirmed Last Taken Type Metoprolol 50 mg PO BID 10/10/19 10/18/19 Unknown History Active Meds: Active Medications Acetaminophen (Tylenol) 650 mg PO Q4H PRN PRN Reason: Pain MILD(1-3)/Fever >100.5/ANNE Hydralazine HCl (Apresoline) 5 mg IV Q30MIN PRN PRN Reason: Hypertension Hydralazine HCl (Apresoline) 25 mg PO Q8HR NETO Dextrose (D5w) 1,000 mls @ 35 mls/hr IV DIRECT NETO Last Admin: 10/20/19 02:44 Dose: 125 mls/hr Documented by: Sodium Chloride (Nacl 0.9%) 100 mls @ 999 mls/hr IV EMILIE PRN PRN Reason: Hypotension Pantoprazole Sodium 80 mg/ (Sodium Chloride) 100 mls @ 10 mls/hr IV DIRECT [facility] Isosorbide Dinitrate/Hydralazine (Bidil 20/37.5mg) 1 each PO Q8HR [facility] Last Admin: 10/21/19 05:06 Dose: 1 each Documented by: Labetalol HCl (Labetalol) 10 mg IV Q4H PRN PRN Reason: Hypertension Last Admin: 10/18/19 04:10 Dose: 10 mg Documented by: Metoprolol Tartrate (Metoprolol) 50 mg PO BID [facility] Last Admin: 10/20/19 21:39 Dose: 50 mg Documented by: Ondansetron HCl (Zofran) 4 mg IV Q8H PRN PRN Reason: Nausea And Vomiting Sodium Chloride (Sodium Chloride Flush Syringe 10 Ml) 10 ml IV BID [facility] Last Admin: 10/20/19 21:39 Dose: 10 ml Documented by: Sodium Chloride (Sodium Chloride Flush Syringe 10 Ml) 10 ml IV PRN PRN PRN Reason: LINE FLUSH Review of Systems ROS unobtainable: due to mental status Exam - Constitutional Vitals: Temp Pulse Resp BP Pulse Ox 98.1 F 80 20 185/90 98 10/21/19 14:46 10/21/19 14:54 10/21/19 14:46 10/21/19 14:54 10/21/19 14:54 General appearance: Present: no acute distress, cachectic, other (N oncommunicative and not following orders) - EENT Eyes: Present: PERRL, EOM intact - Respiratory Respiratory effort: normal Respiratory: bilateral: CTA - Cardiovascular Rhythm: irregularly irregular Heart Sounds: Present: S1 & S2 - Extremities Extremities: No edema - Abdominal General gastrointestinal: Present: soft, non-tender, normal bowel sounds - Rectal Rectal Exam: other (Black liquid stool in diaper) Results - Labs CBC & Chem 7: 10/21/19 04:31 10/21/19 04:31 Labs: Abnormal lab results 10/15/19 10/21/19 10/21/19 Range/Units 08:46 04:31 04:31 RBC 1.78 L (3.65-5.03) M/mm3 Hgb 6.1 L (11.8-15.2) gm/dl Hct 17.7 L* D (35.5-45.6) % MCV 100 H (84-94) fl MCH 34 H (28-32) pg Plt Count 120 L (140-440) K/mm3 Seg Neutrophils % 77.0 H (40.0-70.0) % Seg Neutrophils # 8.0 H (1.8-7.7) K/mm3 Potassium 3.3 L (3.6-5.0) mmol/L Carbon Dioxide 18 L (22-30) mmol/L BUN 86 H (9-20) mg/dL Creatinine 2.9 H (0.8-1.5) mg/dL Glucose 159 H (75-100) mg/dL Calcium 7.7 L (8.4-10.2) mg/dL Serum Total Protein 5.4 L (6.1-8.1) g/dL Albumin 2.7 L (3.8-4.8) g/dL Ffhku-5-Vajfuqkeo 0.5 H (0.2-0.3) g/dL Gamma Globulins 0.7 L (0.8-1.7) g/dL PEP Interpretation see below H Crossmatch 10/21/19 Range/Units 06:38 RBC (3.65-5.03) M/mm3 Hgb (11.8-15.2) gm/dl Hct (35.5-45.6) % MCV (84-94) fl MCH (28-32) pg Plt Count (140-440) K/mm3 Seg Neutrophils % (40.0-70.0) % Seg Neutrophils # (1.8-7.7) K/mm3 Potassium (3.6-5.0) mmol/L Carbon Dioxide (22-30) mmol/L BUN (9-20) mg/dL Creatinine (0.8-1.5) mg/dL Glucose (75-100) mg/dL Calcium (8.4-10.2) mg/dL Serum Total Protein (6.1-8.1) g/dL Albumin (3.8-4.8) g/dL Kzyoj-1-Mmrconivb (0.2-0.3) g/dL Gamma Globulins (0.8-1.7) g/dL PEP Interpretation Crossmatch See Detail - Imaging and Cardiology CT scan - abdomen: report reviewed (No evidence of cirrhosis) Assessment and Plan 1. GI bleed -melena. This has developed over the last 2 to 3 days, with the drop in hemoglobin. This is all consistent with an upper GI bleed. He could have peptic ulcer disease or mass lesion. Varices are also a possibility given the history of hepatitis B, and mild thrombocytopenia, but the CT does not show nodular liver or evidence of varices. Frequency of black tarry bowel movements is not rapid. -IV Protonix drip initiated. -Monitor H&H q 8hrs and transfuse as needed. -We will plan on upper endoscopy in the morning. If patient develops more rapid bleeding, will need to do emergency endoscopy. Situation discussed with patient's son, Elsie, and he agrees to proceed. Indications risks and benefits were explained to him, including risks of exacerbating bleeding or of perforation or reaction to medications, and risk of exsanguination..
[2019-10-21] MEDS ORDERED: SODIUM CHLORIDE 0.9% 250ML 250 ML ONE (17:39)
[2019-10-21] MEDS: DEXTROSE 5% IN WATER 1,000 ML IV SCH (22:02)
[2019-10-21 23:56] LABS: Hematocrit 26.7 % (35.5-45.6); Hemoglobin 9.2 gm/dl (11.8-15.2); Mean Corpuscular HGB Conc 35 % (32-34); Mean Corpuscular Volume 90 fl (84-94); Platelet Count 126 K/mm3 (140-440); Red Blood Count 2.97 M/mm3 (3.65-5.03)
[2019-10-22 00:14] LABS: Red Cell Distribution Width 20.4 % (13.2-15.2)
[2019-10-22 06:11] LABS: Hematocrit 27.8 % (35.5-45.6); Hemoglobin 9.5 gm/dl (11.8-15.2); Mean Corpuscular HGB Conc 34 % (32-34); Mean Corpuscular Volume 89 fl (84-94); Platelet Count 130 K/mm3 (140-440); Red Blood Count 3.12 M/mm3 (3.65-5.03)
[2019-10-22 06:15] LABS: Red Cell Distribution Width 20.4 % (13.2-15.2)
[2019-10-22 06:22] LABS: Calcium 7.8 mg/dL (8.4-10.2)
[2019-10-22] MEDS: ISOSORB DINIT/HYDRALAZINE 20-37.5MG TAB PO SCH ×4 (06:51→22:46)
[2019-10-22] MEDS: hydrALAZINE 25 MG TAB PO SCH ×3 (06:51→22:46)
[2019-10-22] MEDS: DEXTROSE 5% IN WATER 1,000 ML IV SCH (06:52)
[2019-10-22] MEDS ORDERED: SODIUM CHLORIDE 0.9% 1000 ML 1,000 ML IV SCH (07:30)
[2019-10-22] MEDS ORDERED: LIDOCAINE MPF (2%) 20 MG/1 ML VIAL 5 ML ONE (08:00)
[2019-10-22] MEDS ORDERED: propofoL 200 MG/20 ML VIAL IV ONE (08:01)
[2019-10-22] MEDS ORDERED: SODIUM CHLORIDE 0.9% 1000 ML 1,000 ML ONE (08:01)
[2019-10-22] MEDS ORDERED: WATER FOR IRRIG STERILE 1,000 ML BOTTLE ONE (08:12)
--- NOTE | 2019-10-22 08:13 | Anesthesia Consultation ---
Anesthesia Consult and Med Hx Date of service: 10/22/19 - Airway Intubation Access Assessment: Possibly Difficult (uncooperative with airway exam) - Pulmonary Exam CTA: Yes - Cardiac Exam Cardiac Exam: RRR - Pre-Operative Health Status ASA Pre-Surgery Classification: ASA3 Proposed Anesthetic Plan: MAC - Pulmonary Hx Respiratory Symptoms: No - Cardiovascular System Hx Hypertension: Yes Hx Cardia Arrhythmia: Yes (RVR on admission; now rate controled) Hx Pacemaker: No Hx Internal Defibrillator: No - Central Nervous System Hx Psychiatric Problems: Yes (encephalopathy) - Endocrine Hx Renal Disease: Yes (ARF on HD starting this admission) Hx Liver Disease: Yes (HBV) Hx Insulin Dependent Diabetes: No Hx Non-Insulin Dependent Diabetes: No Hx Thyroid Disease: No - Hematic Hx Anemia: Yes (concerning for GI bleed) - Other Systems Hx Obesity: No - Additional Comments Anesthesia Medical History Comments: EF 35-40%, COVID test neg this admission
--- NOTE | 2019-10-22 08:13 | Anesthesia Day of Surgery ---
Anesthesia Day of Surgery - Day of Surgery Patient Examined: Yes Patient H&P Reviewed: Yes Patient is NPO: Yes
--- NOTE | 2019-10-22 08:35 | Post Operative Note ---
Pre-op diagnosis: Melena Post-op diagnosis: other (Duodenal bulb ulcer) Findings: 1. 1.5 cm duodenal bulb ulcer with red spot stimata 2. Otherwise normal EGD Procedure: EGD Anesthesia: MAC Surgeon: ANIYA GUNN Estimated blood loss: none Pathology: none Condition: stable Disposition: floor (Continue PPI drip through tomorrow, then qd PPI. May resume nutritional support, and consider Dobhoff if not taking adequate po.)
--- NOTE | 2019-10-22 08:58 | Progress Note ---
Assessment and Plan Assessment and plan: Toxic metabolic encephalopathy. Treat underlying causes SIRS No obvious infection Chest x-ray negative, CT of the abdomen showed some mild nonspecific inflammation near the distal aorta. ID following A. fib with RVR, status post conversion DC heparin drip, patient thrombocytopenic cardiology following Acute metabolic encephalopathy altered mental status,confusion Anemia. Type and cross and transfuse 2 units PRBCs. Melena. GI consulted Chronic hepatitis B. hepatitis B surface antigen positive. LFTs not elevated. 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 Slight improvement. Cr 3.[address] Oliveira, hematology for low plaletels but he says he does not work here anymore. called and updated daughter on [phone] 10/16/19 patient presented with alterd mental status,nausea,vomiting. Found to have PRIMO due to ATN, thrombocytopenia. Cr worsening. Discussed with Nephrology yesterday. Plan to initiate dialysis if he gets worse. labs show Syphilis IgG antibody positive. ID to evaluate. 10/17/2019. Follow-up hepatitis B PCR. Check MRI of brain. Follow-up RPR with titer to determine active syphilis. 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 If mental status does not improve consider LP. 10/18/2019. Neurology evaluated the patient and diagnosed with metabolic encephalopathy with etiology likely secondary to hypertensive urgency, A-fib w/ RVR, ARF requiring HD, SIRS, hypernatremia, lactic acidosis, and leukocytosis. ID team investigating for possible syphilis. As patient was not found to have an infectious source as of yet, agree with ID that MRI brain would aid in further investigating potential of meningo-encephalitis, and to rule out any intracranial pathology contributing to current mental status. If patient's mental status does not continue to improve as metabolic/infectious abnormalities are corrected, then will consider LP/CSF studies. 10/19/2019. Neurology evaluated the patient and diagnosed with metabolic encephalopathy with etiology likely secondary to hypertensive urgency, A-fib w/ RVR, ARF requiring HD, SIRS, hypernatremia, lactic acidosis, and leukocytosis. CT head: Lt. frontal white matter hypodensity, age indeterminant. MRI Brain: right temporal area of diffusion restriction, which may be T2 shine-through vs. post-ictal change vs. encephalitis. Unlikely to be infarct, however can not be completely ruled out, given patient has A-fib. Echo: EF 35-40%, LA severely dilated. EEG pending. 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 Follow-up lumbar puncture. 10/20/19. ?meningitis ?neurosyphilis. ID to rule out neurosyphilis, HSV encephalitis. MRI brain shows small area of diffusion signal abnormality in the anterolateral cortex on the right. CSF studies pending. Continue acyclovir 500 mg IV daily per ID. From kidney perspective, the patient cont to be anuric, likely will need permcath placement Wednesday and outpatient dialysis if no improvement in PRIMO, will try to hold HD during the weekend if possible. LDH cont to be elevated, hematology consult is not available, [id number] requested on 10/18. Secondary GN work up was negative except for HBVsag and RPR, ID is following. With regards to atrial fibrillation, patient remains on metoprolol for rate control. Pt has been deemed to be a poor candidate for usp anticoagulation given overall frailty and thrombocytopenia. 10/21/2019. Patient noted to have anemia this morning and reports of melena per nursing. Patient will receive 2 units PRBCs and follow-up H&H. GI consultation pending. Stop aspirin. Protonix drip. CSF not consistent with meningitis/encephalitis. Acyclovir has been discontinued by ID. Patient with metabolic encephalopathy secondary to renal failure. Patient with acute renal failure likely ischemic ATN from hypotension. Patient continues to be anuric and will likely need PermCath placement Wednesday and outpatient dialysis if no improvement in PRIMO, will try to hold HD during the weekend if possible per nephrology recommendation. Neurology following. 10/22/2019. EGD revealed 1.5 cm duodenal bulb ulcer. Continue to follow H&H and transfuse for hemoglobin less than 7. Patient with metabolic encephalopathy secondary to renal failure. Patient with acute renal failure likely ischemic ATN from hypotension. Patient continues to be anuric and will likely need PermCath placement Wednesday and outpatient dialysis if no improvement in PRIMO. History Interval history: No new issues overnight Hospitalist Physical - Constitutional Vitals: Temp Pulse Resp BP Pulse Ox 97.7 F 104 H 18 148/86 99 10/22/19 07:42 10/22/19 07:42 10/22/19 08:16 10/22/19 07:42 10/22/19 08:16 General appearance: Present: no acute distress, cachectic, other (Noncommunicative and not following orders) - EENT Eyes: Present: PERRL, EOM intact ENT: hearing intact, clear oral mucosa, dentition normal - Neck Neck: Present: supple, normal ROM - Respiratory Respiratory effort: normal Respiratory: bilateral: CTA - Cardiovascular Rhythm: regular Heart Sounds: Present: S1 & S2. Absent: gallop, rub - Extremities Extremities: no ischemia, No edema, Full ROM - Abdominal General gastrointestinal: soft, non-tender, non-distended, normal bowel sounds - Integumentary Integumentary: Present: clear, warm, dry - Neurologic Neurologic: CNII-XII intact, moves all extremities HEART Score - HEART Score Troponin: Troponin T 0.024 ng/mL (0.00-0.029) 10/10/19 21:40 Results - Labs CBC & Chem 7: 10/22/19 05:24 10/22/19 05:24 Labs: Laboratory Last Values WBC 14.7 K/mm3 (4.5-11.0) H 10/22/19 05:24 RBC 3.12 M/mm3 (3.65-5.03) L 10/22/19 05:24 Hgb 9.5 gm/dl (11.8-15.2) L 10/22/19 05:24 Hct 27.8 % (35.5-45.6) L 10/22/19 05:24 MCV 89 fl (84-94) 10/22/19 05:24 MCH 30 pg (28-32) 10/22/19 05:24 MCHC 34 % (32-34) 10/22/19 05:24 RDW 20.4 % (13.2-15.2) H 10/22/19 05:24 Plt Count 130 K/mm3 (140-440) L 10/22/19 05:24 Lymph % (Auto) 15.0 % (13.4-35.0) 10/21/19 04:31 Bibb % (Auto) 6.6 % (0.0-7.3) 10/21/19 04:31 Eos % (Auto) 1.1 % (0.0-4.3) 10/21/19 04:31 Baso % (Auto) 0.3 % (0.0-1.8) 10/21/19 04:31 Lymph # 1.6 K/mm3 (1.2-5.4) 10/21/19 04:31 Bibb # 0.7 K/mm3 (0.0-0.8) 10/21/19 04:31 Eos # 0.1 K/mm3 (0.0-0.4) 10/21/19 04:31 Baso # 0.0 K/mm3 (0.0-0.1) 10/21/19 04:31 Add Manual Diff Complete 10/11/19 04:42 Total Counted 100 10/11/19 04:42 Seg Neutrophils % 77.0 % (40.0-70.0) H 10/21/19 04:31 Seg Neuts % (Manual) 93.0 % (40.0-70.0) H 10/11/19 04:42 Band Neutrophils % 1.0 % 10/11/19 04:42 Lymphocytes % (Manual) 2.0 % (13.4-35.0) L 10/11/19 04:42 Reactive Lymphs % (Man) 0 % 10/11/19 04:42 Monocytes % (Manual) 4.0 % (0.0-7.3) 10/11/19 04:42 Eosinophils % (Manual) 0 % (0.0-4.3) 10/11/19 04:42 Basophils % (Manual) 0 % (0.0-1.8) 10/11/19 04:42 Metamyelocytes % 0 % 10/11/19 04:42 Myelocytes % 0 % 10/11/19 04:42 Promyelocytes % 0 % 10/11/19 04:42 Blast Cells % 0 % 10/11/19 04:42 Nucleated RBC % Not Reportable 10/11/19 04:42 Seg Neutrophils # 8.0 K/mm3 (1.8-7.7) H 10/21/19 04:31 Seg Neutrophils # Man 14.8 K/mm3 (1.8-7.7) H 10/11/19 04:42 Band Neutrophils # 0.2 K/mm3 10/11/19 04:42 Lymphocytes # (Manual) 0.3 K/mm3 (1.2-5.4) L 10/11/19 04:42 Abs React Lymphs (Man) 0.0 K/mm3 10/11/19 04:42 Monocytes # (Manual) 0.6 K/mm3 (0.0-0.8) 10/11/19 04:42 Eosinophils # (Manual) 0.0 K/mm3 (0.0-0.4) 10/11/19 04:42 Basophils # (Manual) 0.0 K/mm3 (0.0-0.1) 10/11/19 04:42 Metamyelocytes # 0.0 K/mm3 10/11/19 04:42 Myelocytes # 0.0 K/mm3 10/11/19 04:42 Promyelocytes # 0.0 K/mm3 10/11/19 04:42 Blast Cells # 0.0 K/mm3 10/11/19 04:42 WBC Morphology Not Reportable 10/11/19 04:42 Hypersegmented Neuts Not Reportable 10/11/19 04:42 Hyposegmented Neuts Not Reportable 10/11/19 04:42 Hypogranular Neuts Not Reportable 10/11/19 04:42 Smudge Cells Not Reportable 10/11/19 04:42 Toxic Granulation Not Reportable 10/11/19 04:42 Toxic Vacuolation Not Reportable 10/11/19 04:42 Dohle Bodies Not Reportable 10/11/19 04:42 Pelger-Huet Anomaly Not Reportable 10/11/19 04:42 Glenys Rods Not Reportable 10/11/19 04:42 Platelet Estimate Consistent w auto 10/11/19 04:42 Clumped Platelets Not Reportable 10/11/19 04:42 Plt Clumps, EDTA Not Reportable 10/11/19 04:42 Large Platelets Not Reportable 10/11/19 04:42 Giant Platelets Not Reportable 10/11/19 04:42 Platelet Satelliting Not Reportable 10/11/19 04:42 Plt Morphology Comment Not Reportable 10/11/19 04:42 RBC Morphology Not Reportable 10/11/19 04:42 Dimorphic RBCs Not Reportable 10/11/19 04:42 Polychromasia Not Reportable 10/11/19 04:42 Hypochromasia Not Reportable 10/11/19 04:42 Poikilocytosis Not Reportable 10/11/19 04:42 Anisocytosis Not Reportable 10/11/19 04:42 Microcytosis Not Reportable 10/11/19 04:42 Macrocytosis Not Reportable 10/11/19 04:42 Spherocytes Not Reportable 10/11/19 04:42 Pappenheimer Bodies Not Reportable 10/11/19 04:42 Sickle Cells Not Reportable 10/11/19 04:42 Target Cells Not Reportable 10/11/19 04:42 Tear Drop Cells Not Reportable 10/11/19 04:42 Ovalocytes Not Reportable 10/11/19 04:42 Helmet Cells Not Reportable 10/11/19 04:42 [place] Bodies Not Reportable 10/11/19 04:42 Hensley Rings Not Reportable 10/11/19 04:42 [place] Cells Not Reportable 10/11/19 04:42 Bite Cells Not Reportable 10/11/19 04:42 Crenated Cell Not Reportable 10/11/19 04:42 Elliptocytes Rare 10/11/19 04:42 Acanthocytes (Spur) Not Reportable 10/11/19 04:42 Rouleaux Not Reportable 10/11/19 04:42 Hemoglobin C Crystals Not Reportable 10/11/19 04:42 Schistocytes Not Reportable 10/11/19 04:42 Malaria parasites Not Reportable 10/11/19 04:42 Robin Bodies Not Reportable 10/11/19 04:42 Hem Pathologist Commnt No 10/11/19 04:42 PT 14.7 Sec. (12.2-14.9) 10/19/19 08:00 INR 1.14 (0.87-1.13) H 10/19/19 08:00 APTT 34.3 Sec. (24.2-36.6) 10/19/19 08:00 Sodium 143 mmol/L (137-145) 10/22/19 05:24 Potassium 3.2 mmol/L (3.6-5.0) L 10/22/19 05:24 Chloride 106.5 mmol/L (98-107) 10/22/19 05:24 Carbon Dioxide 18 mmol/L (22-30) L 10/22/19 05:24 Anion Gap 22 mmol/L 10/22/19 05:24 BUN 87 mg/dL (9-20) H 10/22/19 05:24 Creatinine 3.2 mg/dL (0.8-1.5) H 10/22/19 05:24 Estimated GFR 19 ml/min 10/22/19 05:24 BUN/Creatinine Ratio 27 % 10/22/19 05:24 Glucose 145 mg/dL (75-100) H 10/22/19 05:24 POC Glucose 139 (70-105) H 10/13/19 18:18 Lactic Acid 3.20 mmol/L (0.7-2.0) H* 10/10/19 23:04 Calcium 7.8 mg/dL (8.4-10.2) L 10/22/19 05:24 Phosphorus 4.10 mg/dL (2.5-4.5) D 10/22/19 05:24 Total Bilirubin 2.50 mg/dL (0.1-1.2) H 10/10/19 21:40 AST 39 units/L (5-40) 10/10/19 21:40 ALT 22 units/L (7-56) 10/10/19 21:40 Alkaline Phosphatase 102 units/L (35-129) 10/10/19 21:40 Ammonia 54.0 umol/L (25-60) 10/10/19 21:40 Lactate Dehydrogenase 401 units/L (91-180) H 10/19/19 05:22 Total Creatine Kinase 563 units/L (55-170) H 10/14/19 10:56 Troponin T 0.024 ng/mL (0.00-0.029) 10/10/19 21:40 Serum Total Protein 5.4 g/dL (6.1-8.1) L 10/15/19 08:46 Total Protein 7.6 g/dL (6.3-8.2) 10/10/19 21:40 Albumin 2.7 g/dL (3.8-4.8) L 10/15/19 08:46 Albumin/Globulin Ratio 1.2 % 10/10/19 21:40 Sdloi-1-Otcpdjjvo 0.5 g/dL (0.2-0.3) H 10/15/19 08:46 Wssiu-4-Kddwmvwlp 0.9 g/dL (0.5-0.9) 10/15/19 08:46 Beta Globulins 0.3 g/dL (0.2-0.5) 10/15/19 08:46 Gamma Globulins 0.7 g/dL (0.8-1.7) L 10/15/19 08:46 Abnorm Protein Band 1 see below 10/15/19 08:46 PEP Interpretation see below H 10/15/19 08:46 TSH 2.550 mlU/mL (0.270-4.200) 10/10/19 21:40 Urine Color Yellow (Yellow) 10/10/19 23:18 Urine Turbidity Clear (Clear) 10/10/19 23:18 Urine pH 6.0 (5.0-7.0) 10/10/19 23:18 Ur Specific [place] 1.015 (1.003-1.030) 10/10/19 23:18 Urine Protein 300 mg/dl mg/dL (Negative) 10/10/19 23:18 Urine Glucose (UA) 50 mg/dL (Negative) 10/10/19 23:18 Urine Ketones Neg mg/dL (Negative) 10/10/19 23:18 Urine Blood Sm (Negative) 10/10/19 23:18 Urine Nitrite Neg (Negative) 10/10/19 23:18 Urine Bilirubin Neg (Negative) 10/10/19 23:18 Urine Urobilinogen < 2.0 mg/dL (<2.0) 10/10/19 23:18 Ur Leukocyte Esterase Neg (Negative) 10/10/19 23:18 Urine WBC (Auto) 1.0 /HPF (0.0-6.0) 10/10/19 23:18 Urine RBC (Auto) 9.0 /HPF (0.0-6.0) 10/10/19 23:18 U Epithel Cells (Auto) < 1.0 /HPF (0-13.0) 10/10/19 23:18 Urine Bacteria (Auto) 1+ /HPF (Negative) 10/10/19 23:18 Hyaline Casts 6 /LPF 10/10/19 23:18 Urine Mucus Few /HPF 10/10/19 23:18 CSF Appearance Clear 10/19/19 14:20 CSF Color Colorless 10/19/19 14:20 CSF WBC 4 /mm3 (1-10) 10/19/19 14:20 CSF RBC 3 /mm3 (0-0) 10/19/19 14:20 CSF Seg Neutrophils 2.0 % (0-6) 10/19/19 14:20 CSF Lymphocytes % 50.0 % (40-80) 10/19/19 14:20 CSF Reactive Lymphs 0 % 10/19/19 14:20 CSF Monocytes % 48.0 % (15-45) 10/19/19 14:20 CSF Eosinophils % 0 % 10/19/19 14:20 CSF Basophils 0 % 10/19/19 14:20 CSF Pathologist Review C 10/19/19 14:20 CSF Glucose 48 mg/dL 10/19/19 14:20 CSF Total Protein 65 mg/dL 10/19/19 14:20 ARABELLA Screen Negative (Negative) 10/14/19 10:56 Proteinase 3 (PR3) Ab <1.0 AI (<1.0) 10/14/19 10:56 Myeloperoxidase Ab <1.0 AI (<1.0) 10/14/19 10:56 Complement C3 101 mg/dL () 10/14/19 10:56 Complement C4 43 mg/dL () 10/14/19 10:56 Syphilis IgG Antibody Reactive (NonReactive) A 10/15/19 14:53 RPR Titer 1:2 10/18/19 Unknown Coronavirus (PCR) Negative (Negative) 10/11/19 11:14 Hepatitis A IgM Ab Non-reactive (NonReactive) 10/15/19 20:27 Hep Bs Antigen Reactive (Negative) 10/15/19 20:27 Hep B Core IgM Ab Non-reactive (NonReactive) 10/15/19 20:27 Hepatitis C Antibody Non-reactive (NonReactive) 10/15/19 20:27 HIV 1&2 Antibody Rapid Non react (Non React) 10/14/19 10:56 HIV P24 Antigen Non react (Non React) 10/14/19 10:56 Influenza A (Rapid) Negative (Negative) 10/10/19 22:25 Influenza B (Rapid) Negative (Negative) 10/10/19 22:25 Schistocytes Smear None seen 10/14/19 10:56 Blood Type B POSITIVE 10/21/19 06:38 Antibody Screen Negative 10/21/19 06:38 Crossmatch See Detail 10/21/19 06:38 Microbiology: Microbiology 10/19/19 14:20 Cerebral Spinal Fluid CSF Culture - Final - Diagnostic Impressions Diagnostic Impressions: Echocardiogram 10/12/19 09:05 Transthoracic Echocardiogram Indication: Afib, HTN BP: 135/78 HR: 115 Conclusions *Global left ventricular systolic function is moderately decreased. *The estimated ejection fraction is 35-40%, but optimal assessment is limited by irregular heart rate. *Mild concentric left ventricular hypertrophy is observed. *The left and right atria are both severely dilated. *There is mild aortic regurgitation. *There is trace-mild mitral regurgitation. *There is moderate tricuspid regurgitation. *There is evidence of mild pulmonary hypertension. *The right ventricular systolic pressure is calculated at 28 mmHg. Findings Left Ventricle: The left ventricular chamber size is mildly dilated. Mild concentric left ventricular hypertrophy is observed. Global left ventricular systolic function is moderately decreased. The estimated ejection fraction is 35-40%. Left Atrium: The left atrium is severely dilated. Right Ventricle: The right ventricle is slightly dilated. Right Atrium: The right atrium is moderate to severely dilated. Aortic Valve: The aortic valve is trileaflet. The aortic valve leaflets are moderately thickened. There is mild aortic regurgitation. There is no evidence of aortic stenosis. Mitral Valve: The mitral valve leaflets are mildly thickened. There is trace of mitral regurgitation. There is no evidence of mitral stenosis. Tricuspid Valve: There is moderate tricuspid regurgitation. The right ventricular systolic pressure is calculated at 28 mmHg. There is evidence of mild pulmonary hypertension. Pulmonic Valve: There is mild pulmonic regurgitation. Pericardium: There is no pericardial effusion. Aorta: There is no dilatation of the aortic root. Venous: The inferior vena cava appears normal in size. Measurements Chambers 2D Name Value Normal Range IVSd (2D) 1.27 cm (0.6 - 1.1) LVPWd (2D) 1.06 cm (0.6 - 1.1) LVIDd (2D) 4.06 cm (3.7 - 5.6) LVIDs (2D) 2.91 cm (2 - 3.8) LV FS (2D) 28.16 % - EF Teichholz (2D) 54.96 % - Ao root diameter (2D) 2.83 cm (2 - 3.7) Volumes/Mass Name Value Normal Range LA ESV SP 4CH (A/L) 74.63 ml - LA ESV SP 2CH (A/L) 67.89 ml - LA ESV BP (A/L) 81.32 ml - LA ESV BP (A/L) index 54.21 ml/m2 - LA ESV SP 4CH (MOD) 65.06 ml - LA ESV SP 2CH (MOD) 65.08 ml - LA ESV BP (MOD) 74.22 ml - LA ESV BP (MOD) index 49.48 ml/m2 - LV EDV SP 4CH (MOD) 46.88 ml - LV ESV SP 4CH (MOD) 14.91 ml - EF SP 4CH (MOD) 68.19 % - LV EDV SP 2CH (MOD) 26.53 ml - LV ESV SP 2CH (MOD) 11.71 ml - EF SP 2CH (MOD) 55.86 % - LV EDV BP 37.95 ml - LV ESV BP 13.85 ml - BP EF (MOD) 63.51 % - Diastolic/Systolic Function Name Value Normal Range MV E-wave Vmax 0.8 m/sec - MV deceleration time 145.29 msec - Aortic Valve Name Value Normal Range AV Vmax 0.79 m/sec - AV VTI 9.87 cm - AV peak gradient 2.5 mmHg - AV mean gradient 0.94 mmHg - LVOT diameter 2.12 cm - LVOT Vmax 0.69 m/sec - LVOT VTI 12.18 cm - LVOT peak gradient 1.93 mmHg - LVOT mean gradient 1.04 mmHg - SV LVOT 42.84 ml - YAMILA (continuity Vmax) 3.08 cm2 - YAMILA (continuity VTI) 4.34 cm2 - AR PHT 498.2 msec - AR peak gradient 55.86 mmHg - Tricuspid Valve Name Value Normal Range TR Vmax 2.52 m/sec - TR peak gradient 25.41 mmHg - RAP 3 mmHg - RVSP 28 mmHg - Pulmonic Valve/Qp:Qs Name Value Normal Range PV Vmax 0.74 m/sec - PV VTI 10.83 cm - PV peak gradient 2.2 mmHg - PV mean gradient 1.08 mmHg - KS end-diastolic Vmax 1.28 m/sec - RVOT Vmax 0.01 m/sec - RVOT VTI 11.04 cm - RVOT peak gradient 2.38 mmHg - Miranda/IV: Voiding Method Condom Catheter IV Catheter Type [Left Hand] Peripheral IV IV Catheter Type [Right VAS Cath Internal Jugular] IV Catheter Type [Left Forearm Peripheral IV ] IV Catheter Type [Right INT / Saline Lock Forearm] Active Medications - Current Medications Current Medications: Generic Name Dose Route Start Last Admin Trade Name Freq PRN Reason Stop Dose Admin Acetaminophen 650 mg 10/11/19 02:03 Tylenol PO Q4H PRN Pain MILD(1-3)/Fever >100.5/ANNE Hydralazine HCl 5 mg 10/11/19 08:00 Apresoline IV Q30MIN PRN Hypertension Hydralazine HCl 25 mg 10/21/19 15:00 10/22/19 06:51 Apresoline PO 25 mg Q8HR NETO Administration Dextrose 1,000 mls @ 35 mls/hr 10/16/19 10:00 10/22/19 06:52 D5w IV 125 mls/hr DIRECT NETO Administration Sodium Chloride 100 mls @ 999 mls/hr 10/19/19 09:00 Nacl 0.9% IV EMILIE PRN Hypotension Pantoprazole Sodium 80 mg/ 100 mls @ 10 mls/hr 10/21/19 11:30 10/21/19 22:03 Sodium Chloride IV 8 mg/hr DIRECT NETO 10 mls/hr Administration 8 MG/HR Sodium Chloride 1,000 mls @ 50 mls/hr 10/22/19 07:30 Nacl 0.9% 1000 Ml IV DIRECT NETO Isosorbide Dinitrate/Hydralazine 1 each 10/13/19 14:00 10/22/19 06:51 Bidil 20/37.5mg PO 1 each Q8HR NETO Administration Labetalol HCl 10 mg 10/11/19 13:00 10/18/19 04:10 Labetalol IV 10 mg Q4H PRN Administration Hypertension Metoprolol Tartrate 50 mg 10/11/19 10:00 10/21/19 21:40 Metoprolol PO 50 mg BID NETO Administration Ondansetron HCl 4 mg 10/11/19 02:03 Zofran IV Q8H PRN Nausea And Vomiting Sodium Chloride 10 ml 10/11/19 10:00 05/16/20 21:40 Sodium Chloride Flush Syringe 10 Ml IV 10 ml BID NETO Administration Sodium Chloride 10 ml 10/11/19 02:03 Sodium Chloride Flush Syringe 10 Ml IV PRN PRN LINE FLUSH Nutrition/Malnutrition Assess - Dietary Evaluation Nutrition/Malnutrition Findings: Nutrition Notes Start: 10/11/19 13:24 Freq: Status: Active Protocol: Document 10/19/19 13:33 LM (Rec: 10/19/19 13:35 LM [id number]) Nutrition Notes Initial or Follow up Brief Note Current Diagnosis Acute Kidney Injury, Hypertension Other Pertinent Diagnosis on HD, dehydration, Afib, AMS Current Diet Cardiac Subjective/Other Information Pt getting HD and lumbar pucture today. Will order Nepro for pt for higher kcal and pt receiving HD. Nutrition Intervention Add Supplement/Snack (indicate name/kcal Nepro BID /protein ) Provides kCal: 850 Provides Protein (gm) 38 Follow-Up By: 10/23/19 Additional Comments F/U for intakes
--- NOTE | 2019-10-22 10:36 | Post Anesthesia Evaluation ---
- Post Anesthesia Evaluation Patient Participated: No (baseline mentation) Airway Patent: Yes Stable Respiratory Function: Yes Nausea/Vomiting: No Temp > 96.8F: Yes Pain Manageable: Yes Adequeate Hydration: Yes Anesthesia Complications: No
--- NOTE | 2019-10-22 10:45 | Operative Report ---
PROCEDURE: Upper endoscopy. PREOPERATIVE DIAGNOSIS: Melena. POSTOPERATIVE DIAGNOSIS: Duodenal bulb ulcer. SEDATION: MAC by Anesthesia. HISTORY: The patient is an 84-year-old man who was admitted with nausea, vomiting, and developed mental status changes. Over the last several days, he has developed melena and his hemoglobin has dropped from 13 down to 6. He was given blood transfusions and his hemoglobin is back up to 9.5. DESCRIPTION OF PROCEDURE AND FINDINGS: Indications, risks, and benefits were explained and consent was obtained from his son, Elsie. The patient was placed on left lateral decubitus position and sedated. Video endoscope was passed through the mouth and oropharynx into the descending duodenum. Scope was then gradually withdrawn with close inspection of mucosa. 1. Normal esophagus. 2. Mild gastritis with patchy erythema in the antrum, but otherwise normal stomach. 3. A 1.5 cm duodenal bulb ulcer with white fibrinous base and red spot stigmata. There was no evidence of active or old blood. 4. Remainder of duodenum is normal appearing. The patient tolerated the procedure well without immediate complication. IMPRESSION: 1. Duodenal bulb ulcer with red spot stigmata - likely cause of bleeding. 2. Otherwise normal endoscopy. 3. Mild gastritis. PLAN: 1. Continue IV Protonix drip through tomorrow and then switch to daily Protonix indefinitely. 2. Monitor H and H. 3. May resume diet and consider nutritional support with Dobbhoff if the patient is not taking adequate p.o. intake. I will defer this to the hospitalist. [facility]# [id number] HRC/NTS
--- NOTE | 2019-10-22 11:39 | Progress Note ---
Assessment and Plan Assessment and Plan Acute renal failure, possible ischemic ATN from low BP, also possible TTP/HUS Sepsis Afib with RVR Hypotension Thrombocytopenia Hypokalemia Plan: cont to be anuric, likely will need permcath placement Wednesday and outpatient dialysis if no improvement in PRIMO, no HD today, HD tomorrow. Added Hydralazine to BP regimen as BP high LDH cont to be elevated, hematology consult is not available, [id number] requested on 10/18 secondary GN work up was negative except for HBVsag and RPR, ID is following Hypernatremia-resolved Strict I&O monitoring Obtain daily weights Renally dose medications Avoid nephrotoxic agents Monitor electrolytes and renal function closely Subjective Date of service: 10/22/19 Principal diagnosis: Metabolic Encephalopathy Interval history: Not making urine. Objective - Exam Narrative Exam: General appearance: NAD Eyes: anicteric sclerae, moist conjunctivae; no lid-lag; PERRLA HENT: Atraumatic; oropharynx limited Lungs: CTA CV: RRR no murmur Abdomen: Soft, non-tender Extremities: no edema, no cyanosis Skin: No rash. Psych:no agitated Neuro: non verbal - Vital Signs Vital signs: Vital Signs - 12hr 10/22/19 10/22/19 10/22/19 00:08 03:40 07:42 Temperature 97.4 F L 98.0 F 97.7 F Pulse Rate 85 104 H Respiratory 20 18 18 Rate Blood Pressure 119/72 162/79 148/86 O2 Sat by Pulse 100 99 Oximetry 10/22/19 10/22/19 10/22/19 07:55 08:16 08:27 Temperature 97.8 F 97.6 F Pulse Rate 91 H 87 Respiratory 18 18 14 Rate Blood Pressure 142/75 114/58 O2 Sat by Pulse 99 99 100 Oximetry 10/22/19 10/22/19 08:45 09:00 Temperature Pulse Rate 87 77 Respiratory 14 15 Rate Blood Pressure 131/72 133/73 O2 Sat by Pulse 100 100 Oximetry - Lab 10/22/19 13:43 10/22/19 05:24 Most recent lab results Calcium 7.8 mg/dL (8.4-10.2) L 10/22/19 05:24 Phosphorus 4.10 mg/dL (2.5-4.5) D 10/22/19 05:24 Medications & Allergies - Medications Allergies/Adverse Reactions: Allergies No Known Allergies Allergy (Unverified 10/10/19 21:31) Home Medications: Home Medications Medication Instructions Recorded Confirmed Last Taken Type Metoprolol 50 mg PO BID 10/10/19 10/18/19 Unknown History Active Medications: Generic Name Dose Route Start Last Admin Trade Name Freq PRN Reason Stop Dose Admin Acetaminophen 650 mg 10/11/19 02:03 Tylenol PO Q4H PRN Pain MILD(1-3)/Fever >100.5/ANNE Hydralazine HCl 5 mg 10/11/19 08:00 Apresoline IV Q30MIN PRN Hypertension Hydralazine HCl 25 mg 10/21/19 15:00 10/22/19 06:51 Apresoline PO 25 mg Q8HR NETO Administration Dextrose 1,000 mls @ 35 mls/hr 10/16/19 10:00 10/22/19 06:52 D5w IV 125 mls/hr DIRECT NETO Administration Sodium Chloride 100 mls @ 999 mls/hr 10/19/19 09:00 Nacl 0.9% IV EMILIE PRN Hypotension Pantoprazole Sodium 80 mg/ 100 mls @ 10 mls/hr 10/21/19 11:30 10/21/19 22:03 Sodium Chloride IV 10/23/19 23:59 8 mg/hr DIRECT NETO 10 mls/hr Administration 8 MG/HR Sodium Chloride 1,000 mls @ 50 mls/hr 10/22/19 07:30 Nacl 0.9% 1000 Ml IV 10/22/19 23:59 DIRECT NETO Isosorbide Dinitrate/Hydralazine 1 each 10/13/19 14:00 10/22/19 06:51 Bidil 20/37.5mg PO 1 each Q8HR NETO Administration Labetalol HCl 10 mg 10/11/19 13:00 10/18/19 04:10 Labetalol IV 10 mg Q4H PRN Administration Hypertension Metoprolol Tartrate 50 mg 10/11/19 10:00 10/21/19 21:40 Metoprolol PO 50 mg BID NETO Administration Ondansetron HCl 4 mg 10/11/19 02:03 Zofran IV Q8H PRN Nausea And Vomiting Pantoprazole Sodium 40 mg 10/24/19 10:00 Protonix IV QDAY NETO Sodium Chloride 10 ml 10/11/19 10:00 10/21/19 21:40 Sodium Chloride Flush Syringe 10 Ml IV 10 ml BID NETO Administration Sodium Chloride 10 ml 10/11/19 02:03 Sodium Chloride Flush Syringe 10 Ml IV PRN PRN LINE FLUSH
--- NOTE | 2019-10-22 11:56 | XRay Report ---
CHEST 1 VIEW 1101 INDICATION / CLINICAL INFORMATION: congestion. COMPARISON: 10/14/2019 FINDINGS: SUPPORT DEVICES: A right jugular large bore central line is now seen with tip in the area of the atri al caval junction HEART / MEDIASTINUM: Stable LUNGS / PLEURA: No significant pulmonary or pleural abnormality. No pneumothorax. ADDITIONAL FINDINGS: No significant additional findings. IMPRESSION: Line placement appears radiographically satisfactory with no obvious complication Signer Name: Rufus Cadena MD Signed: 10/22/2019 11:52 AM Workstation Name: [id number]
[2019-10-22 14:18] LABS: Hemoglobin 9.7 gm/dl (11.8-15.2); Mean Corpuscular HGB Conc 34 % (32-34); Mean Corpuscular Volume 90 fl (84-94); Platelet Count 142 K/mm3 (140-440); Red Blood Count 3.21 M/mm3 (3.65-5.03)
[2019-10-22] MEDS: METOPROLOL TARTRATE 50 MG TAB PO SCH ×2 (14:27→22:46)
[2019-10-22 14:37] LABS: Red Cell Distribution Width 20.7 % (13.2-15.2)
--- NOTE | 2019-10-22 16:22 | Progress Note ---
Assessment and Plan - Patient Problems (1) Atrial fibrillation Current Visit: Yes Status: Acute Plan to address problem: We will continue current management of atrial fibrillation on a rate control strategy. (2) Cardiomyopathy Current Visit: Yes Status: Acute Plan to address problem: Patient has a moderate severity cardiomyopathy, continue guideline directed medical therapy as tolerated. Subjective Date of service: 10/22/19 Principal diagnosis: Metabolic Encephalopathy Interval history: Patient appears frail and cachectic, no acute distress, no new cardiac issues Objective Vital Signs Temp Pulse Resp BP Pulse Ox 10/22/19 14:27 73 162/84 10/22/19 14:24 73 162/84 10/22/19 11:46 97.1 F L 73 18 162/84 100 10/22/19 09:00 77 15 133/73 100 10/22/19 08:45 87 14 131/72 100 10/22/19 08:27 97.6 F 87 14 114/58 100 10/22/19 08:16 18 99 10/22/19 07:55 97.8 F 91 H 18 142/75 99 10/22/19 07:42 97.7 F 104 H 18 148/86 99 10/22/19 03:40 98.0 F 18 162/79 10/22/19 00:08 97.4 F L 85 20 119/72 100 10/21/19 21:40 94 H 179/94 10/21/19 21:39 94 H 179/94 10/21/19 20:50 97.9 F 96 H 20 180/96 96 10/21/19 20:35 89 10/21/19 20:33 97.8 F 98 H 22 178/94 98 10/21/19 20:03 97.6 F 94 H 18 179/94 96 10/21/19 19:33 97.8 F 98 H 18 180/96 96 10/21/19 19:28 97.8 F 80 20 197/95 96 10/21/19 19:03 97.9 F 91 H 20 182/98 94 10/21/19 18:33 97.6 F 96 H 20 179/74 10/21/19 18:03 96 H 20 173/93 78 L 10/21/19 17:48 97.7 F 99 H 20 164/95 97 - Physical Examination General: No Apparent Distress HEENT: Positive: PERRL Neck: Positive: neck supple Cardiac: Positive: irregularly irregular Lungs: Positive: Decreased Breath Sounds Neuro: Positive: Weakness Abdomen: Positive: Soft, Active Bowel Sounds Skin: Positive: Clear Extremities: Absent: edema - Labs and Meds CBC 10/21/19 10/22/19 10/22/19 Range/Units 22:56 05:24 13:43 WBC 16.2 H 14.7 H 14.3 H (4.5-11.0) K/mm3 RBC 2.97 L 3.12 L 3.21 L (3.65-5.03) M/mm3 Hgb 9.2 L D 9.5 L 9.7 L (11.8-15.2) gm/dl Hct 26.7 L D 27.8 L 29.0 L (35.5-45.6) % Plt Count 126 L 130 L 142 (140-440) K/mm3 Comprehensive Metabolic Panel 10/22/19 Range/Units 05:24 Sodium 143 (137-145) mmol/L Potassium 3.2 L (3.6-5.0) mmol/L Chloride 106.5 (98-107) mmol/L Carbon Dioxide 18 L (22-30) mmol/L BUN 87 H (9-20) mg/dL Creatinine 3.2 H (0.8-1.5) mg/dL Glucose 145 H (75-100) mg/dL Calcium 7.8 L (8.4-10.2) mg/dL
[2019-10-22 23:41] LABS: Hematocrit 26.8 % (35.5-45.6); Hemoglobin 9.1 gm/dl (11.8-15.2); Mean Corpuscular HGB Conc 34 % (32-34); Mean Corpuscular Volume 90 fl (84-94); Platelet Count 150 K/mm3 (140-440); Red Blood Count 2.97 M/mm3 (3.65-5.03)
[2019-10-22 23:55] LABS: Red Cell Distribution Width 20.4 % (13.2-15.2)
[2019-10-23] MEDS: PANTOPRAZOLE 80 MG in SODIUM CHLORIDE 0.9% 100 ML IV SCH ×2 (03:26→22:01)
[2019-10-23] MEDS: DEXTROSE 5% IN WATER 1,000 ML IV SCH ×2 (05:14→22:01)
[2019-10-23] MEDS: ISOSORB DINIT/HYDRALAZINE 20-37.5MG TAB PO SCH ×3 (05:14→21:59)
[2019-10-23] MEDS: hydrALAZINE 25 MG TAB PO SCH ×3 (05:14→21:59)
[2019-10-23 07:42] LABS: Basophils % (Auto) 0.3 % (0.0-1.8); Eosinophils # (Auto) 0.1 K/mm3 (0.0-0.4); Eosinophils % (Auto) 0.9 % (0.0-4.3); Lymphocytes # (Auto) 1.3 K/mm3 (1.2-5.4); Mean Corpuscular HGB Conc 34 % (32-34); Mean Corpuscular Volume 89 fl (84-94); Monocytes # (Auto) 0.9 K/mm3 (0.0-0.8); Monocytes % (Auto) 6.5 % (0.0-7.3); Platelet Count 146 K/mm3 (140-440); Red Blood Count 2.91 M/mm3 (3.65-5.03); Red Cell Distribution Width 20.1 % (13.2-15.2)
[2019-10-23 08:07] LABS: Calcium 7.7 mg/dL (8.4-10.2)
--- NOTE | 2019-10-23 08:57 | Progress Note ---
Assessment and Plan Assessment and plan: Toxic metabolic encephalopathy. Treat underlying causes SIRS No obvious infection Chest x-ray negative, CT of the abdomen showed some mild nonspecific inflammation near the distal aorta. ID following A. fib with RVR, status post conversion DC heparin drip, patient thrombocytopenic cardiology following Acute metabolic encephalopathy altered mental status,confusion Anemia. Type and cross and transfuse 2 units PRBCs. Melena. GI consulted Chronic hepatitis B. hepatitis B surface antigen positive. LFTs not elevated. Hypertension uncontrolled Start IV hydralazine, Nitropaste, monitor PRIMO due to ATN Nephrology following Hypernatremia Nephrology following Hypokalemia replace as needed Thrombocytopenia hematology following assessment services manager for possible placement DVT prophylaxis with SCDs only because of low platelets 10/15/19 patient with acute kidney injury due to ATN. Slight improvement. Cr 3.[address] Oliveira, hematology for low plaletels but he says he does not work here anymore. called and updated daughter on [phone] 10/16/19 patient presented with alterd mental status,nausea,vomiting. Found to have PRIMO due to ATN, thrombocytopenia. Cr worsening. Discussed with Nephrology yesterday. Plan to initiate dialysis if he gets worse. labs show Syphilis IgG antibody positive. ID to evaluate. 10/17/2019. Follow-up hepatitis B PCR. Check MRI of brain. Follow-up RPR with titer to determine active syphilis. 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 If mental status does not improve consider LP. 10/18/2019. Neurology evaluated the patient and diagnosed with metabolic encephalopathy with etiology likely secondary to hypertensive urgency, A-fib w/ RVR, ARF requiring HD, SIRS, hypernatremia, lactic acidosis, and leukocytosis. ID team investigating for possible syphilis. As patient was not found to have an infectious source as of yet, agree with ID that MRI brain would aid in further investigating potential of meningo-encephalitis, and to rule out any intracranial pathology contributing to current mental status. If patient's mental status does not continue to improve as metabolic/infectious abnormalities are corrected, then will consider LP/CSF studies. 10/19/2019. Neurology evaluated the patient and diagnosed with metabolic encephalopathy with etiology likely secondary to hypertensive urgency, A-fib w/ RVR, ARF requiring HD, SIRS, hypernatremia, lactic acidosis, and leukocytosis. CT head: Lt. frontal white matter hypodensity, age indeterminant. MRI Brain: right temporal area of diffusion restriction, which may be T2 shine-through vs. post-ictal change vs. encephalitis. Unlikely to be infarct, however can not be completely ruled out, given patient has A-fib. Echo: EF 35-40%, LA severely dilated. EEG pending. 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 Follow-up lumbar puncture. 10/20/19. ?meningitis ?neurosyphilis. ID to rule out neurosyphilis, HSV encephalitis. MRI brain shows small area of diffusion signal abnormality in the anterolateral cortex on the right. CSF studies pending. Continue acyclovir 500 mg IV daily per ID. From kidney perspective, the patient cont to be anuric, likely will need permcath placement Wednesday and outpatient dialysis if no improvement in PRIMO, will try to hold HD during the weekend if possible. LDH cont to be elevated, hematology consult is not available, [id number] requested on 10/18. Secondary GN work up was negative except for HBVsag and RPR, ID is following. With regards to atrial fibrillation, patient remains on metoprolol for rate control. Pt has been deemed to be a poor candidate for usp anticoagulation given overall frailty and thrombocytopenia. 10/21/2019. Patient noted to have anemia this morning and reports of melena per nursing. Patient will receive 2 units PRBCs and follow-up H&H. GI consultation pending. Stop aspirin. Protonix drip. CSF not consistent with meningitis/encephalitis. Acyclovir has been discontinued by ID. Patient with metabolic encephalopathy secondary to renal failure. Patient with acute renal failure likely ischemic ATN from hypotension. Patient continues to be anuric and will likely need PermCath placement Wednesday and outpatient dialysis if no improvement in PRIMO, will try to hold HD during the weekend if possible per nephrology recommendation. Neurology following. 10/22/2019. EGD revealed 1.5 cm duodenal bulb ulcer. Continue to follow H&H and transfuse for hemoglobin less than 7. Patient with metabolic encephalopathy secondary to renal failure. Patient with acute renal failure likely ischemic ATN from hypotension. Patient continues to be anuric and will likely need PermCath placement Wednesday and outpatient dialysis if no improvement in PRIMO. 10/23/2019. EGD revealed 1.5 cm duodenal bulb ulcer. Continue to follow H&H and transfuse for hemoglobin less than 7. Patient with metabolic encephalopathy secondary to renal failure. Patient with acute renal failure likely ischemic ATN from hypotension. Per nephrology, patient continues to be anuric and will likely have PermCath placement today and outpatient dialysis if no improvement in PRIMO. History Interval history: No new issues overnight Hospitalist Physical - Constitutional Vitals: Temp Pulse Resp BP Pulse Ox 98.0 F 74 18 122/65 98 10/23/19 03:33 10/23/19 03:33 10/23/19 03:33 10/23/19 03:33 10/23/19 03:33 General appearance: Present: no acute distress, cachectic, other (Noncommunicative and not following orders) - EENT Eyes: Present: PERRL, EOM intact ENT: hearing intact, clear oral mucosa, dentition normal - Neck Neck: Present: supple, normal ROM - Respiratory Respiratory effort: normal Respiratory: bilateral: CTA - Cardiovascular Rhythm: regular Heart Sounds: Present: S1 & S2. Absent: gallop, rub - Extremities Extremities: no ischemia, No edema, Full ROM - Abdominal General gastrointestinal: soft, non-tender, non-distended, normal bowel sounds - Integumentary Integumentary: Present: clear, warm, dry - Neurologic Neurologic: CNII-XII intact, moves all extremities HEART Score - HEART Score Troponin: Troponin T 0.024 ng/mL (0.00-0.029) 10/10/19 21:40 Results - Labs CBC & Chem 7: 10/23/19 06:52 10/23/19 06:52 Labs: Laboratory Last Values WBC 14.0 K/mm3 (4.5-11.0) H 10/23/19 06:52 RBC 2.91 M/mm3 (3.65-5.03) L 10/23/19 06:52 Hgb 9.0 gm/dl (11.8-15.2) L 10/23/19 06:52 Hct 26.0 % (35.5-45.6) L 10/23/19 06:52 MCV 89 fl (84-94) 10/23/19 06:52 MCH 31 pg (28-32) 10/23/19 06:52 MCHC 34 % (32-34) 10/23/19 06:52 RDW 20.1 % (13.2-15.2) H 10/23/19 06:52 Plt Count 146 K/mm3 (140-440) 10/23/19 06:52 Lymph % (Auto) 9.0 % (13.4-35.0) L 10/23/19 06:52 Morrill % (Auto) 6.5 % (0.0-7.3) 10/23/19 06:52 Eos % (Auto) 0.9 % (0.0-4.3) 10/23/19 06:52 Baso % (Auto) 0.3 % (0.0-1.8) 10/23/19 06:52 Lymph # 1.3 K/mm3 (1.2-5.4) 10/23/19 06:52 Morrill # 0.9 K/mm3 (0.0-0.8) H 10/23/19 06:52 Eos # 0.1 K/mm3 (0.0-0.4) 10/23/19 06:52 Baso # 0.0 K/mm3 (0.0-0.1) 10/23/19 06:52 Add Manual Diff Complete 10/11/19 04:42 Total Counted 100 10/11/19 04:42 Seg Neutrophils % 83.3 % (40.0-70.0) H 10/23/19 06:52 Seg Neuts % (Manual) 93.0 % (40.0-70.0) H 10/11/19 04:42 Band Neutrophils % 1.0 % 10/11/19 04:42 Lymphocytes % (Manual) 2.0 % (13.4-35.0) L 10/11/19 04:42 Reactive Lymphs % (Man) 0 % 10/11/19 04:42 Monocytes % (Manual) 4.0 % (0.0-7.3) 10/11/19 04:42 Eosinophils % (Manual) 0 % (0.0-4.3) 10/11/19 04:42 Basophils % (Manual) 0 % (0.0-1.8) 10/11/19 04:42 Metamyelocytes % 0 % 10/11/19 04:42 Myelocytes % 0 % 10/11/19 04:42 Promyelocytes % 0 % 10/11/19 04:42 Blast Cells % 0 % 10/11/19 04:42 Nucleated RBC % Not Reportable 10/11/19 04:42 Seg Neutrophils # 11.6 K/mm3 (1.8-7.7) H 10/23/19 06:52 Seg Neutrophils # Man 14.8 K/mm3 (1.8-7.7) H 10/11/19 04:42 Band Neutrophils # 0.2 K/mm3 10/11/19 04:42 Lymphocytes # (Manual) 0.3 K/mm3 (1.2-5.4) L 10/11/19 04:42 Abs React Lymphs (Man) 0.0 K/mm3 10/11/19 04:42 Monocytes # (Manual) 0.6 K/mm3 (0.0-0.8) 10/11/19 04:42 Eosinophils # (Manual) 0.0 K/mm3 (0.0-0.4) 10/11/19 04:42 Basophils # (Manual) 0.0 K/mm3 (0.0-0.1) 10/11/19 04:42 Metamyelocytes # 0.0 K/mm3 10/11/19 04:42 Myelocytes # 0.0 K/mm3 10/11/19 04:42 Promyelocytes # 0.0 K/mm3 10/11/19 04:42 Blast Cells # 0.0 K/mm3 10/11/19 04:42 WBC Morphology Not Reportable 10/11/19 04:42 Hypersegmented Neuts Not Reportable 10/11/19 04:42 Hyposegmented Neuts Not Reportable 10/11/19 04:42 Hypogranular Neuts Not Reportable 10/11/19 04:42 Smudge Cells Not Reportable 10/11/19 04:42 Toxic Granulation Not Reportable 10/11/19 04:42 Toxic Vacuolation Not Reportable 10/11/19 04:42 Dohle Bodies Not Reportable 10/11/19 04:42 Pelger-Huet Anomaly Not Reportable 10/11/19 04:42 Glenys Rods Not Reportable 10/11/19 04:42 Platelet Estimate Consistent w auto 10/11/19 04:42 Clumped Platelets Not Reportable 10/11/19 04:42 Plt Clumps, EDTA Not Reportable 10/11/19 04:42 Large Platelets Not Reportable 10/11/19 04:42 Giant Platelets Not Reportable 10/11/19 04:42 Platelet Satelliting Not Reportable 10/11/19 04:42 Plt Morphology Comment Not Reportable 10/11/19 04:42 RBC Morphology Not Reportable 10/11/19 04:42 Dimorphic RBCs Not Reportable 10/11/19 04:42 Polychromasia Not Reportable 10/11/19 04:42 Hypochromasia Not Reportable 10/11/19 04:42 Poikilocytosis Not Reportable 10/11/19 04:42 Anisocytosis Not Reportable 10/11/19 04:42 Microcytosis Not Reportable 10/11/19 04:42 Macrocytosis Not Reportable 10/11/19 04:42 Spherocytes Not Reportable 10/11/19 04:42 Pappenheimer Bodies Not Reportable 10/11/19 04:42 Sickle Cells Not Reportable 10/11/19 04:42 Target Cells Not Reportable 10/11/19 04:42 Tear Drop Cells Not Reportable 10/11/19 04:42 Ovalocytes Not Reportable 10/11/19 04:42 Helmet Cells Not Reportable 10/11/19 04:42 Luna-Carpio Bodies Not Reportable 10/11/19 04:42 [place] Rings Not Reportable 10/11/19 04:42 Letart Cells Not Reportable 10/11/19 04:42 Bite Cells Not Reportable 10/11/19 04:42 Crenated Cell Not Reportable 10/11/19 04:42 Elliptocytes Rare 10/11/19 04:42 Acanthocytes (Spur) Not Reportable 10/11/19 04:42 Rouleaux Not Reportable 10/11/19 04:42 Hemoglobin C Crystals Not Reportable 10/11/19 04:42 Schistocytes Not Reportable 10/11/19 04:42 Malaria parasites Not Reportable 10/11/19 04:42 Robin Bodies Not Reportable 10/11/19 04:42 Hem Pathologist Commnt No 10/11/19 04:42 PT 14.7 Sec. (12.2-14.9) 10/19/19 08:00 INR 1.14 (0.87-1.13) H 10/19/19 08:00 APTT 34.3 Sec. (24.2-36.6) 10/19/19 08:00 Sodium 144 mmol/L (137-145) 10/23/19 06:52 Potassium 3.3 mmol/L (3.6-5.0) L 10/23/19 06:52 Chloride 110.3 mmol/L (98-107) H 10/23/19 06:52 Carbon Dioxide 19 mmol/L (22-30) L 10/23/19 06:52 Anion Gap 18 mmol/L 10/23/19 06:52 BUN 81 mg/dL (9-20) H 10/23/19 06:52 Creatinine 3.5 mg/dL (0.8-1.5) H 10/23/19 06:52 Estimated GFR 17 ml/min 10/23/19 06:52 BUN/Creatinine Ratio 23 % 10/23/19 06:52 Glucose 166 mg/dL (75-100) H 10/23/19 06:52 POC Glucose 139 (70-105) H 10/13/19 18:18 Lactic Acid 3.20 mmol/L (0.7-2.0) H* 10/10/19 23:04 Calcium 7.7 mg/dL (8.4-10.2) L 10/23/19 06:52 Phosphorus 4.00 mg/dL (2.5-4.5) 10/23/19 06:52 Total Bilirubin 2.50 mg/dL (0.1-1.2) H 10/10/19 21:40 AST 39 units/L (5-40) 10/10/19 21:40 ALT 22 units/L (7-56) 10/10/19 21:40 Alkaline Phosphatase 102 units/L (35-129) 10/10/19 21:40 Ammonia 54.0 umol/L (25-60) 10/10/19 21:40 Lactate Dehydrogenase 401 units/L (91-180) H 10/19/19 05:22 Total Creatine Kinase 563 units/L (55-170) H 10/14/19 10:56 Troponin T 0.024 ng/mL (0.00-0.029) 10/10/19 21:40 Serum Total Protein 5.4 g/dL (6.1-8.1) L 10/15/19 08:46 Total Protein 7.6 g/dL (6.3-8.2) 10/10/19 21:40 Albumin 2.7 g/dL (3.8-4.8) L 10/15/19 08:46 Albumin/Globulin Ratio 1.2 % 10/10/19 21:40 Ydncv-2-Dttnirfdh 0.5 g/dL (0.2-0.3) H 10/15/19 08:46 Enzew-9-Rqhvycvzu 0.9 g/dL (0.5-0.9) 10/15/19 08:46 Beta Globulins 0.3 g/dL (0.2-0.5) 10/15/19 08:46 Gamma Globulins 0.7 g/dL (0.8-1.7) L 10/15/19 08:46 Abnorm Protein Band 1 see below 10/15/19 08:46 PEP Interpretation see below H 10/15/19 08:46 TSH 2.550 mlU/mL (0.270-4.200) 10/10/19 21:40 Urine Color Yellow (Yellow) 10/10/19 23:18 Urine Turbidity Clear (Clear) 10/10/19 23:18 Urine pH 6.0 (5.0-7.0) 10/10/19 23:18 Ur Specific Rawson 1.015 (1.003-1.030) 10/10/19 23:18 Urine Protein 300 mg/dl mg/dL (Negative) 10/10/19 23:18 Urine Glucose (UA) 50 mg/dL (Negative) 10/10/19 23:18 Urine Ketones Neg mg/dL (Negative) 10/10/19 23:18 Urine Blood Sm (Negative) 10/10/19 23:18 Urine Nitrite Neg (Negative) 10/10/19 23:18 Urine Bilirubin Neg (Negative) 10/10/19 23:18 Urine Urobilinogen < 2.0 mg/dL (<2.0) 10/10/19 23:18 Ur Leukocyte Esterase Neg (Negative) 10/10/19 23:18 Urine WBC (Auto) 1.0 /HPF (0.0-6.0) 10/10/19 23:18 Urine RBC (Auto) 9.0 /HPF (0.0-6.0) 10/10/19 23:18 U Epithel Cells (Auto) < 1.0 /HPF (0-13.0) 10/10/19 23:18 Urine Bacteria (Auto) 1+ /HPF (Negative) 10/10/19 23:18 Hyaline Casts 6 /LPF 10/10/19 23:18 Urine Mucus Few /HPF 10/10/19 23:18 CSF Appearance Clear 10/19/19 14:20 CSF Color Colorless 10/19/19 14:20 CSF WBC 4 /mm3 (1-10) 10/19/19 14:20 CSF RBC 3 /mm3 (0-0) 10/19/19 14:20 CSF Seg Neutrophils 2.0 % (0-6) 10/19/19 14:20 CSF Lymphocytes % 50.0 % (40-80) 10/19/19 14:20 CSF Reactive Lymphs 0 % 10/19/19 14: CSF Monocytes % 48.0 % (15-45) 10/19/19 14:20 CSF Eosinophils % 0 % 10/19/19 14:20 CSF Basophils 0 % 10/19/19 14:20 CSF Pathologist Review C 10/19/19 14:20 CSF Glucose 48 mg/dL 10/19/19 14:20 CSF Total Protein 65 mg/dL 10/19/19 14:20 ARABELLA Screen Negative (Negative) 10/14/19 10:56 Proteinase 3 (PR3) Ab <1.0 AI (<1.0) 10/14/19 10:56 Myeloperoxidase Ab <1.0 AI (<1.0) 10/14/19 10:56 Complement C3 101 mg/dL () 10/14/19 10:56 Complement C4 43 mg/dL () 10/14/19 10:56 Syphilis IgG Antibody Reactive (NonReactive) A 10/15/19 14:53 RPR Titer 1:2 10/18/19 Unknown Coronavirus (PCR) Negative (Negative) 10/11/19 11:14 Hepatitis A IgM Ab Non-reactive (NonReactive) 10/15/19 20:27 Hep Bs Antigen Reactive (Negative) 10/15/19 20:27 Hep B Core IgM Ab Non-reactive (NonReactive) 10/15/19 20:27 Hepatitis C Antibody Non-reactive (NonReactive) 10/15/19 20:27 HIV 1&2 Antibody Rapid Non react (Non React) 10/14/19 10:56 HIV P24 Antigen Non react (Non React) 10/14/19 10:56 Influenza A (Rapid) Negative (Negative) 10/10/19 22:25 Influenza B (Rapid) Negative (Negative) 10/10/19 22:25 Schistocytes Smear None seen 10/14/19 10:56 Blood Type B POSITIVE 10/21/19 06:38 Antibody Screen Negative 10/21/19 06:38 Crossmatch See Detail 10/21/19 06:38 Microbiology: Microbiology 10/19/19 14:20 Cerebral Spinal Fluid CSF Culture - Final - Diagnostic Impressions Diagnostic Impressions: Echocardiogram 10/12/19 09:05 Transthoracic Echocardiogram Indication: Afib, HTN BP: 135/78 HR: 115 Conclusions *Global left ventricular systolic function is moderately decreased. *The estimated ejection fraction is 35-40%, but optimal assessment is limited by irregular heart rate. *Mild concentric left ventricular hypertrophy is observed. *The left and right atria are both severely dilated. *There is mild aortic regurgitation. *There is trace-mild mitral regurgitation. *There is moderate tricuspid regurgitation. *There is evidence of mild pulmonary hypertension. *The right ventricular systolic pressure is calculated at 28 mmHg. Findings Left Ventricle: The left ventricular chamber size is mildly dilated. Mild concentric left ventricular hypertrophy is observed. Global left ventricular systolic function is moderately decreased. The estimated ejection fraction is 35-40%. Left Atrium: The left atrium is severely dilated. Right Ventricle: The right ventricle is slightly dilated. Right Atrium: The right atrium is moderate to severely dilated. Aortic Valve: The aortic valve is trileaflet. The aortic valve leaflets are moderately thickened. There is mild aortic regurgitation. There is no evidence of aortic stenosis. Mitral Valve: The mitral valve leaflets are mildly thickened. There is trace of mitral regurgitation. There is no evidence of mitral stenosis. Tricuspid Valve: There is moderate tricuspid regurgitation. The right ventricular systolic pressure is calculated at 28 mmHg. There is evidence of mild pulmonary hypertension. Pulmonic Valve: There is mild pulmonic regurgitation. Pericardium: There is no pericardial effusion. Aorta: There is no dilatation of the aortic root. Venous: The inferior vena cava appears normal in size. Measurements Chambers 2D Name Value Normal Range IVSd (2D) 1.27 cm (0.6 - 1.1) LVPWd (2D) 1.06 cm (0.6 - 1.1) LVIDd (2D) 4.06 cm (3.7 - 5.6) LVIDs (2D) 2.91 cm (2 - 3.8) LV FS (2D) 28.16 % - EF Teichholz (2D) 54.96 % - Ao root diameter (2D) 2.83 cm (2 - 3.7) Volumes/Mass Name Value Normal Range LA ESV SP 4CH (A/L) 74.63 ml - LA ESV SP 2CH (A/L) 67.89 ml - LA ESV BP (A/L) 81.32 ml - LA ESV BP (A/L) index 54.21 ml/m2 - LA ESV SP 4CH (MOD) 65.06 ml - LA ESV SP 2CH (MOD) 65.08 ml - LA ESV BP (MOD) 74.22 ml - LA ESV BP (MOD) index 49.48 ml/m2 - LV EDV SP 4CH (MOD) 46.88 ml - LV ESV SP 4CH (MOD) 14.91 ml - EF SP 4CH (MOD) 68.19 % - LV EDV SP 2CH (MOD) 26.53 ml - LV ESV SP 2CH (MOD) 11.71 ml - EF SP 2CH (MOD) 55.86 % - LV EDV BP 37.95 ml - LV ESV BP 13.85 ml - BP EF (MOD) 63.51 % - Diastolic/Systolic Function Name Value Normal Range MV E-wave Vmax 0.8 m/sec - MV deceleration time 145.29 msec - Aortic Valve Name Value Normal Range AV Vmax 0.79 m/sec - AV VTI 9.87 cm - AV peak gradient 2.5 mmHg - AV mean gradient 0.94 mmHg - LVOT diameter 2.12 cm - LVOT Vmax 0.69 m/sec - LVOT VTI 12.18 cm - LVOT peak gradient 1.93 mmHg - LVOT mean gradient 1.04 mmHg - SV LVOT 42.84 ml - YAMILA (continuity Vmax) 3.08 cm2 - YAMILA (continuity VTI) 4.34 cm2 - AR PHT 498.2 msec - AR peak gradient 55.86 mmHg - Tricuspid Valve Name Value Normal Range TR Vmax 2.52 m/sec - TR peak gradient 25.41 mmHg - RAP 3 mmHg - RVSP 28 mmHg - Pulmonic Valve/Qp:Qs Name Value Normal Range PV Vmax 0.74 m/sec - PV VTI 10.83 cm - PV peak gradient 2.2 mmHg - PV mean gradient 1.08 mmHg - LA end-diastolic Vmax 1.28 m/sec - RVOT Vmax 0.01 m/sec - RVOT VTI 11.04 cm - RVOT peak gradient 2.38 mmHg - Miranda/IV: Voiding Method Condom Catheter IV Catheter Type [Left Hand] Peripheral IV IV Catheter Type [Right VAS Cath Internal Jugular] IV Catheter Type [Left Forearm Peripheral IV ] IV Catheter Type [Right INT / Saline Lock Forearm] Active Medications - Current Medications Current Medications: Generic Name Dose Route Start Last Admin Trade Name Freq PRN Reason Stop Dose Admin Acetaminophen 650 mg 10/11/19 02:03 Tylenol PO Q4H PRN Pain MILD(1-3)/Fever >100.5/ANNE Hydralazine HCl 5 mg 10/11/19 08:00 Apresoline IV Q30MIN PRN Hypertension Hydralazine HCl 25 mg 10/21/19 15:00 10/23/19 05:14 Apresoline PO 25 mg Q8HR NETO Administration Dextrose 1,000 mls @ 35 mls/hr 10/16/19 10:00 10/23/19 05:14 D5w IV 125 mls/hr DIRECT NETO Administration Sodium Chloride 100 mls @ 999 mls/hr 10/19/19 09:00 Nacl 0.9% IV EMILIE PRN Hypotension Pantoprazole Sodium 80 mg/ 100 mls @ 10 mls/hr 10/21/19 11:30 10/23/19 03:26 Sodium Chloride IV 10/23/19 23:59 8 mg/hr DIRECT NETO 10 mls/hr Administration 8 MG/HR Isosorbide Dinitrate/Hydralazine 1 each 10/13/19 14:00 10/23/19 05:14 Bidil 20/37.5mg PO 1 each Q8HR NETO Administration Labetalol HCl 10 mg 10/11/19 13:00 10/18/19 04:10 Labetalol IV 10 mg Q4H PRN Administration Hypertension Metoprolol Tartrate 50 mg 10/11/19 10:00 10/22/19 22:46 Metoprolol PO 50 mg BID NETO Administration Ondansetron HCl 4 mg 10/11/19 02:03 Zofran IV Q8H PRN Nausea And Vomiting Pantoprazole Sodium 40 mg 10/24/19 10:00 Protonix IV QDAY NETO Sodium Chloride 10 ml 10/11/19 10:00 10/22/19 22:47 Sodium Chloride Flush Syringe 10 Ml IV 10 ml BID NETO Administration Sodium Chloride 10 ml 10/11/19 02:03 Sodium Chloride Flush Syringe 10 Ml IV PRN PRN LINE FLUSH Nutrition/Malnutrition Assess - Dietary Evaluation Nutrition/Malnutrition Findings: Nutrition Notes Start: 10/11/19 13:24 Freq: Status: Active Protocol: Document 10/19/19 13:33 LM (Rec: 10/19/19 13:35 LM -[email or web address]) Nutrition Notes Initial or Follow up Brief Note Current Diagnosis Acute Kidney Injury, Hypertension Other Pertinent Diagnosis on HD, dehydration, Afib, AMS Current Diet Cardiac Subjective/Other Information Pt getting HD and lumbar pucture today. Will order Nepro for pt for higher kcal and pt receiving HD. Nutrition Intervention Add Supplement/Snack (indicate name/kcal Nepro BID /protein ) Provides kCal: 850 Provides Protein (gm) 38 Follow-Up By: 10/23/19 Additional Comments F/U for intakes
--- NOTE | 2019-10-23 09:03 | Progress Note ---
Assessment and Plan Atrial fibrillation, persistent on metoprolol for rate control Pt has been deemed to be a poor candidate for snf anticoagulation given overall frailty and thrombocytopenia Acute renal failure -initiated on dialysis Hypertension Dilated Cardiomyopathy, uncertain duration an echo this admission shows atrial enlargement, decreased left ventricular systolic function, ejection fraction 35-40%. Continue medical therapy for dilated cardiomyopathy and rate controlling agents for atrial fibrillation that persists. Otherwise, conservative cardiac management. Subjective Date of service: 10/23/19 Principal diagnosis: Metabolic Encephalopathy Interval history: No interval cardiac changes. Afib with a well controlled ventricular rate on telemetry. Objective Vital Signs Temp Pulse Resp BP Pulse Ox 10/23/19 03:33 98.0 F 74 18 122/65 98 10/22/19 23:48 98.0 F 18 10/22/19 23:47 173/81 10/22/19 20:57 95 H 10/22/19 19:12 98.6 F 95 H 18 140/68 100 10/22/19 16:34 97.5 F L 99 H 18 110/72 97 10/22/19 14:27 73 162/84 10/22/19 14:24 73 162/84 10/22/19 11:46 97.1 F L 73 18 162/84 100 - Physical Examination General: No Apparent Distress, Cachectic HEENT: Positive: PERRL Neck: Positive: neck supple Cardiac: Positive: irregularly irregular Extremities: Absent: edema - Labs and Meds CBC 10/22/19 10/22/19 10/23/19 Range/Units 13:43 22:59 06:52 WBC 14.3 H 11.3 H 14.0 H (4.5-11.0) K/mm3 RBC 3.21 L 2.97 L 2.91 L (3.65-5.03) M/mm3 Hgb 9.7 L 9.1 L 9.0 L (11.8-15.2) gm/dl Hct 29.0 L 26.8 L 26.0 L (35.5-45.6) % Plt Count 142 150 146 (140-440) K/mm3 Lymph # 1.3 (1.2-5.4) K/mm3 [place] # 0.9 H (0.0-0.8) K/mm3 Eos # 0.1 (0.0-0.4) K/mm3 Baso # 0.0 (0.0-0.1) K/mm3 Comprehensive Metabolic Panel 10/23/19 Range/Units 06:52 Sodium 144 (137-145) mmol/L Potassium 3.3 L (3.6-5.0) mmol/L Chloride 110.3 H (98-107) mmol/L Carbon Dioxide 19 L (22-30) mmol/L BUN 81 H (9-20) mg/dL Creatinine 3.5 H (0.8-1.5) mg/dL Glucose 166 H (75-100) mg/dL Calcium 7.7 L (8.4-10.2) mg/dL
--- NOTE | 2019-10-23 11:16 | Progress Note ---
Assessment and Plan Assessment: Acute renal failure, possible ischemic ATN from low BP, also possible TTP/HUS Sepsis Afib with RVR Hypotension Thrombocytopenia Hypokalemia Plan: Renal labs reviewed. Serum creatinine 3.5 today, yesterday's was 3.2, UOP 1500 ml HD scheduled for today for clearance mainly. Will monitor renal function off dialysis tomorrow before deciding if perm-cath is needed ARABELLA, ANCA, SPEP, C3, C4, Anti-GBM, SPEP, urine eosinophils-negative Secondary GN work up was negative except for HBVsag and RPR, ID is following [id number] today Decrease D5W to 50 ml/hr Replete potassium as needed Strict I&O monitoring Obtain daily weights Renally dose medications Avoid nephrotoxic agents Monitor electrolytes and renal function closely Subjective Date of service: 10/23/19 Principal diagnosis: Metabolic Encephalopathy Interval history: Patient seen lying in bed. No family at bedside. Left hand is in restraint. Does not speak Dutch. Objective - Vital Signs Vital signs: Vital Signs - 12hr 10/22/19 10/22/19 10/23/19 23:47 23:48 03:33 Temperature 98.0 F 98.0 F Pulse Rate 74 Respiratory 18 18 Rate Blood Pressure 173/81 122/65 O2 Sat by Pulse 98 Oximetry 10/23/19 07:10 Temperature 98.8 F Pulse Rate 68 Respiratory 17 Rate Blood Pressure 107/48 O2 Sat by Pulse 98 Oximetry - General Appearance General appearance: well-developed, fatigue, other (Awake and alert) EENT: ATNC, PERRL Neck: no JVD, supple Respiratory: Present: Decreased Breath Sounds Cardiology: S1S2 Gastrointestinal: normoactive bowel sounds Integumentary: warm and dry Neurologic: other (Awake and alert) Musculoskeletal: other (No edema) - Lab 10/23/19 06:52 10/23/19 06:52 Most recent lab results Calcium 7.7 mg/dL (8.4-10.2) L 10/23/19 06:52 Phosphorus 4.00 mg/dL (2.5-4.5) 10/23/19 06:52 Medications & Allergies - Medications Allergies/Adverse Reactions: Allergies No Known Allergies Allergy (Unverified 10/10/19 21:31) Home Medications: Home Medications Medication Instructions Recorded Confirmed Last Taken Type Metoprolol 50 mg PO BID 10/10/19 10/18/19 Unknown History Active Medications: Generic Name Dose Route Start Last Admin Trade Name Freq PRN Reason Stop Dose Admin Acetaminophen 650 mg 10/11/19 02:03 Tylenol PO Q4H PRN Pain MILD(1-3)/Fever >100.5/ANNE Hydralazine HCl 5 mg 10/11/19 08:00 Apresoline IV Q30MIN PRN Hypertension Hydralazine HCl 25 mg 10/21/19 15:00 10/23/19 05:14 Apresoline PO 25 mg Q8HR NETO Administration Dextrose 1,000 mls @ 35 mls/hr 10/16/19 10:00 10/23/19 05:14 D5w IV 125 mls/hr DIRECT NETO Administration Sodium Chloride 100 mls @ 999 mls/hr 10/19/19 09:00 Nacl 0.9% IV EMILIE PRN Hypotension Pantoprazole Sodium 80 mg/ 100 mls @ 10 mls/hr 10/21/19 11:30 10/23/19 03:26 Sodium Chloride IV 10/23/19 23:59 8 mg/hr DIRECT NETO 10 mls/hr Administration 8 MG/HR Isosorbide Dinitrate/Hydralazine 1 each 10/13/19 14:00 10/23/19 05:14 Bidil 20/37.5mg PO 1 each Q8HR NETO Administration Labetalol HCl 10 mg 10/11/19 13:00 10/18/19 04:10 Labetalol IV 10 mg Q4H PRN Administration Hypertension Metoprolol Tartrate 50 mg 10/11/19 10:00 10/22/19 22:46 Metoprolol PO 50 mg BID NETO Administration Ondansetron HCl 4 mg 10/11/19 02:03 Zofran IV Q8H PRN Nausea And Vomiting Pantoprazole Sodium 40 mg 10/24/19 10:00 Protonix IV QDAY NETO Sodium Chloride 10 ml 10/11/19 10:00 10/22/19 22:47 Sodium Chloride Flush Syringe 10 Ml IV 10 ml BID NETO Administration Sodium Chloride 10 ml 10/11/19 02:03 Sodium Chloride Flush Syringe 10 Ml IV PRN PRN LINE FLUSH
[2019-10-23] MEDS: METOPROLOL TARTRATE 50 MG TAB PO SCH ×2 (11:32→21:59)
[2019-10-23] MEDS ORDERED: SODIUM CHLORIDE 0.9% 100 ML IV PRN (12:00)
--- NOTE | 2019-10-23 12:27 | Progress Note ---
Assessment and Plan 1. GI bleed -due to duodenal ulcer as per EGD. H/H stable. No evidence of ongoing bleed. - continue daily PPI indefinitely - can f/u as outpatient in 3-4 wks 2. Nutrition - consider Dobhoff or other means if pt unable to take adequate po. - will defer to Hospitalist Will sign off. Please call as needed. Subjective Date of service: 10/23/19 Principal diagnosis: Metabolic Encephalopathy Interval history: Pt in bed, looks comfortable, not responding meaningfully. No evidence of ongoing bleed. Objective - Constitutional Vitals: Vital Signs - 12hr 10/23/19 10/23/19 03:33 07:10 Temperature 98.0 F 98.8 F Pulse Rate 74 68 Respiratory 18 17 Rate Blood Pressure 122/65 107/48 O2 Sat by Pulse 98 98 Oximetry General appearance: Present: no acute distress - EENT Eyes: PERRL, EOM intact - Respiratory Respiratory effort: normal - Gastrointestinal General gastrointestinal: Present: soft, non-tender - Labs CBC & Chem 7: 10/23/19 06:52 10/23/19 06:52 Labs: Abnormal lab results 10/22/19 10/22/19 10/23/19 Range/Units 13:43 22:59 06:52 WBC 14.3 H 11.3 H (4.5-11.0) K/mm3 RBC 3.21 L 2.97 L (3.65-5.03) M/mm3 Hgb 9.7 L 9.1 L (11.8-15.2) gm/dl Hct 29.0 L 26.8 L (35.5-45.6) % RDW 20.7 H 20.4 H (13.2-15.2) % Lymph % (Auto) (13.4-35.0) % [place] # (0.0-0.8) K/mm3 Seg Neutrophils % (40.0-70.0) % Seg Neutrophils # (1.8-7.7) K/mm3 Potassium 3.3 L (3.6-5.0) mmol/L Chloride 110.3 H (98-107) mmol/L Carbon Dioxide 19 L (22-30) mmol/L BUN 81 H (9-20) mg/dL Creatinine 3.5 H (0.8-1.5) mg/dL Glucose 166 H (75-100) mg/dL Calcium 7.7 L (8.4-10.2) mg/dL 10/23/19 Range/Units 06:52 WBC 14.0 H (4.5-11.0) K/mm3 RBC 2.91 L (3.65-5.03) M/mm3 Hgb 9.0 L (11.8-15.2) gm/dl Hct 26.0 L (35.5-45.6) % RDW 20.1 H (13.2-15.2) % Lymph % (Auto) 9.0 L (13.4-35.0) % [place] # 0.9 H (0.0-0.8) K/mm3 Seg Neutrophils % 83.3 H (40.0-70.0) % Seg Neutrophils # 11.6 H (1.8-7.7) K/mm3 Potassium (3.6-5.0) mmol/L Chloride (98-107) mmol/L Carbon Dioxide (22-30) mmol/L BUN (9-20) mg/dL Creatinine (0.8-1.5) mg/dL Glucose (75-100) mg/dL Calcium (8.4-10.2) mg/dL Medications & Allergies - Medications Allergies/Adverse Reactions: Allergies No Known Allergies Allergy (Unverified 10/10/19 21:31) Home Medications: Home Medications Medication Instructions Recorded Confirmed Last Taken Type Metoprolol 50 mg PO BID 10/10/19 10/18/19 Unknown History Active Medications: Generic Name Dose Route Start Last Admin Trade Name Lizy PRN Reason Stop Dose Admin Acetaminophen 650 mg 10/11/19 02:03 Tylenol PO Q4H PRN Pain MILD(1-3)/Fever >100.5/ANNE Hydralazine HCl 5 mg 10/11/19 08:00 Apresoline IV Q30MIN PRN Hypertension Hydralazine HCl 25 mg 10/21/19 15:00 10/23/19 05:14 Apresoline PO 25 mg Q8HR NETO Administration Dextrose 1,000 mls @ 35 mls/hr 10/16/19 10:00 10/23/19 05:14 D5w IV 125 mls/hr DIRECT NETO Administration Pantoprazole Sodium 80 mg/ 100 mls @ 10 mls/hr 10/21/19 11:30 10/23/19 03:26 Sodium Chloride IV 10/23/19 23:59 8 mg/hr DIRECT NETO 10 mls/hr Administration 8 MG/HR Sodium Chloride 100 mls @ 999 mls/hr 10/23/19 12:00 Nacl 0.9% IV EMILIE PRN Hypotension Isosorbide Dinitrate/Hydralazine 1 each 10/13/19 14:00 10/23/19 05:14 Bidil 20/37.5mg PO 1 each Q8HR NETO Administration Labetalol HCl 10 mg 10/11/19 13:00 10/18/19 04:10 Labetalol IV 10 mg Q4H PRN Administration Hypertension Metoprolol Tartrate 50 mg 10/11/19 10:00 10/22/19 22:46 Metoprolol PO 50 mg BID NETO Administration Ondansetron HCl 4 mg 10/11/19 02:03 Zofran IV Q8H PRN Nausea And Vomiting Pantoprazole Sodium 40 mg 10/24/19 10:00 Protonix IV QDAY NETO Sodium Chloride 10 ml 10/11/19 10:00 10/22/19 22:47 Sodium Chloride Flush Syringe 10 Ml IV 10 ml BID NETO Administration Sodium Chloride 10 ml 10/11/19 02:03 Sodium Chloride Flush Syringe 10 Ml IV PRN PRN LINE FLUSH HEART Score - HEART Score Troponin: Troponin T 0.024 ng/mL (0.00-0.029) 10/10/19 21:40
[2019-10-24] MEDS: ISOSORB DINIT/HYDRALAZINE 20-37.5MG TAB PO SCH ×3 (05:52→22:04)
[2019-10-24] MEDS: hydrALAZINE 25 MG TAB PO SCH ×3 (05:53→22:04)
[2019-10-24] MEDS: PANTOPRAZOLE 40 MG TAB PO SCH (09:26)
[2019-10-24] MEDS: METOPROLOL TARTRATE 50 MG TAB PO SCH ×2 (09:27→22:05)
[2019-10-24 09:28] LABS: Calcium 8.3 mg/dL (8.4-10.2)
--- NOTE | 2019-10-24 09:30 | Progress Note ---
Assessment and Plan Atrial fibrillation, persistent on metoprolol for rate control Pt has been deemed to be a poor candidate for alf anticoagulation given overall frailty, thrombocytopenia and severe anemia Acute renal failure -initiated on dialysis Hypertension Dilated Cardiomyopathy, uncertain duration an echo this admission shows atrial enlargement, decreased left ventricular systolic function, ejection fraction 35-40%. Continue medical therapy for dilated cardiomyopathy and rate controlling agents for atrial fibrillation that persists. Otherwise, conservative cardiac management. Subjective Date of service: 10/24/19 Principal diagnosis: Metabolic Encephalopathy Interval history: No interval cardiac changes. Afib with a well controlled ventricular rate on telemetry. Objective Vital Signs Temp Pulse Resp BP BP Pulse Ox 10/24/19 09:27 98/56 10/24/19 07:41 98.8 F 83 18 104/58 99 10/24/19 03:40 97.6 F 73 16 121/76 97 10/23/19 23:22 97.6 F 72 16 89/51 100 10/23/19 20:14 93 H 10/23/19 19:50 75 16 124/78 100 10/23/19 18:00 97.8 F 93 H 18 153/82 10/23/19 17:45 93 H 130/86 10/23/19 17:30 83 143/76 10/23/19 17:15 78 110/53 10/23/19 17:00 78 125/72 10/23/19 16:45 79 114/62 10/23/19 16:30 76 145/66 10/23/19 16:15 79 151/81 10/23/19 16:00 65 138/65 10/23/19 15:45 76 150/83 10/23/19 15:30 71 165/76 10/23/19 15:15 71 161/80 10/23/19 15:00 72 168/70 10/23/19 14:45 72 134/62 10/23/19 14:30 97.6 F 74 20 134/76 10/23/19 12:00 98.1 F 78 19 113/58 98 - Physical Examination General: No Apparent Distress, Cachectic HEENT: Positive: PERRL Cardiac: Positive: irregularly irregular Neuro: Positive: Weakness Extremities: Absent: edema - Labs and Meds Comprehensive Metabolic Panel 10/24/19 Range/Units 08:02 Sodium 136 L D (137-145) mmol/L Potassium 3.6 (3.6-5.0) mmol/L Chloride 97.5 L (98-107) mmol/L Carbon Dioxide 26 D (22-30) mmol/L BUN 33 H (9-20) mg/dL Creatinine 2.3 H (0.8-1.5) mg/dL Glucose 119 H (75-100) mg/dL Calcium 8.3 L (8.4-10.2) mg/dL
--- NOTE | 2019-10-24 10:51 | Progress Note ---
Assessment and Plan Assessment and plan: Toxic metabolic encephalopathy. Treat underlying causes SIRS No obvious infection Chest x-ray negative, CT of the abdomen showed some mild nonspecific inflammation near the distal aorta. ID following A. fib with RVR, status post conversion DC heparin drip, patient thrombocytopenic cardiology following Acute metabolic encephalopathy altered mental status,confusion Anemia. Type and cross and transfuse 2 units PRBCs. Melena. GI consulted Chronic hepatitis B. hepatitis B surface antigen positive. LFTs not elevated. 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 Slight improvement. Cr 3.[address] Oliveira, hematology for low plaletels but he says he does not work here anymore. called and updated daughter on [phone] 10/16/19 patient presented with alterd mental status,nausea,vomiting. Found to have PRIMO due to ATN, thrombocytopenia. Cr worsening. Discussed with Nephrology yesterday. Plan to initiate dialysis if he gets worse. labs show Syphilis IgG antibody positive. ID to evaluate. 10/17/2019. Follow-up hepatitis B PCR. Check MRI of brain. Follow-up RPR with titer to determine active syphilis. 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 If mental status does not improve consider LP. 10/18/2019. Neurology evaluated the patient and diagnosed with metabolic encephalopathy with etiology likely secondary to hypertensive urgency, A-fib w/ RVR, ARF requiring HD, SIRS, hypernatremia, lactic acidosis, and leukocytosis. ID team investigating for possible syphilis. As patient was not found to have an infectious source as of yet, agree with ID that MRI brain would aid in further investigating potential of meningo-encephalitis, and to rule out any intracranial pathology contributing to current mental status. If patient's mental status does not continue to improve as metabolic/infectious abnormalities are corrected, then will consider LP/CSF studies. 10/19/2019. Neurology evaluated the patient and diagnosed with metabolic encephalopathy with etiology likely secondary to hypertensive urgency, A-fib w/ RVR, ARF requiring HD, SIRS, hypernatremia, lactic acidosis, and leukocytosis. CT head: Lt. frontal white matter hypodensity, age indeterminant. MRI Brain: right temporal area of diffusion restriction, which may be T2 shine-through vs. post-ictal change vs. encephalitis. Unlikely to be infarct, however can not be completely ruled out, given patient has A-fib. Echo: EF 35-40%, LA severely dilated. EEG pending. 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 Follow-up lumbar puncture. 10/20/19. ?meningitis ?neurosyphilis. ID to rule out neurosyphilis, HSV encephalitis. MRI brain shows small area of diffusion signal abnormality in the anterolateral cortex on the right. CSF studies pending. Continue acyclovir 500 mg IV daily per ID. From kidney perspective, the patient cont to be anuric, likely will need permcath placement Wednesday and outpatient dialysis if no improvement in PRIMO, will try to hold HD during the weekend if possible. LDH cont to be elevated, hematology consult is not available, [id number] requested on 10/18. Secondary GN work up was negative except for HBVsag and RPR, ID is following. With regards to atrial fibrillation, patient remains on metoprolol for rate control. Pt has been deemed to be a poor candidate for long chain beamer anticoagulation given overall frailty and thrombocytopenia. 10/21/2019. Patient noted to have anemia this morning and reports of melena per nursing. Patient will receive 2 units PRBCs and follow-up H&H. GI consultation pending. Stop aspirin. Protonix drip. CSF not consistent with meningitis/encephalitis. Acyclovir has been discontinued by ID. Patient with metabolic encephalopathy secondary to renal failure. Patient with acute renal failure likely ischemic ATN from hypotension. Patient continues to be anuric and will likely need PermCath placement Wednesday and outpatient dialysis if no improvement in PRIMO, will try to hold HD during the weekend if possible per nephrology recommendation. Neurology following. 10/22/2019. EGD revealed 1.5 cm duodenal bulb ulcer. Continue to follow H&H and transfuse for hemoglobin less than 7. Patient with metabolic encephalopathy secondary to renal failure. Patient with acute renal failure likely ischemic ATN from hypotension. Patient continues to be anuric and will likely need PermCath placement Wednesday and outpatient dialysis if no improvement in PRIMO. 10/23/2019. EGD revealed 1.5 cm duodenal bulb ulcer. Continue to follow H&H and transfuse for hemoglobin less than 7. Patient with metabolic encephalopathy secondary to renal failure. Patient with acute renal failure likely ischemic ATN from hypotension. Per nephrology, patient continues to be anuric and will likely have PermCath placement today and outpatient dialysis if no improvement in PRIMO. 10/24/2019 Patient is 84 yo with acute kidney injury due to ATN, therefore started on hemodialysis. 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 Patient also had GI bleed. I discussed with Dr. Barth. He recommends Dobhoff tube. I discussed with Nurse,orders placed. History Interval history: Patient with failure to thrive with afib,presented with nausea, vomiting altered mental status Diagnosed with acute kidney injury, started on dialysis Hospitalist Physical - Physical exam Narrative exam: GEN: Not in acute distress, malnourished HEENT: Normocephalic, atraumatic, Neck: supple, No JVD Lungs: Clear to auscultation bilaterally, heart;S1 and S2 reg, no murmurs, rubs or gallop Abd:soft, non tender, non distended, normal bowel sounds, Ext: No edema, no clubbing, no cyanosis, Neuro: Awake,alert, confused - Constitutional Vitals: Temp Pulse Resp BP Pulse Ox 98.8 F 83 18 98/56 99 10/24/19 07:41 10/24/19 07:41 10/24/19 07:41 10/24/19 09:27 10/24/19 07:41 General appearance: Present: no acute distress HEART Score - HEART Score Troponin: Troponin T 0.024 ng/mL (0.00-0.029) 10/10/19 21:40 Results - Labs CBC & Chem 7: 10/23/19 06:52 10/24/19 08:02 Labs: Laboratory Last Values WBC 14.0 K/mm3 (4.5-11.0) H 10/23/19 06:52 RBC 2.91 M/mm3 (3.65-5.03) L 10/23/19 06:52 Hgb 9.0 gm/dl (11.8-15.2) L 10/23/19 06:52 Hct 26.0 % (35.5-45.6) L 10/23/19 06:52 MCV 89 fl (84-94) 10/23/19 06:52 MCH 31 pg (28-32) 10/23/19 06:52 MCHC 34 % (32-34) 10/23/19 06:52 RDW 20.1 % (13.2-15.2) H 10/23/19 06:52 Plt Count 146 K/mm3 (140-440) 10/23/19 06:52 Lymph % (Auto) 9.0 % (13.4-35.0) L 10/23/19 06:52 Perry % (Auto) 6.5 % (0.0-7.3) 10/23/19 06:52 Eos % (Auto) 0.9 % (0.0-4.3) 10/23/19 06:52 Baso % (Auto) 0.3 % (0.0-1.8) 10/23/19 06:52 Lymph # 1.3 K/mm3 (1.2-5.4) 10/23/19 06:52 Perry # 0.9 K/mm3 (0.0-0.8) H 10/23/19 06:52 Eos # 0.1 K/mm3 (0.0-0.4) 10/23/19 06:52 Baso # 0.0 K/mm3 (0.0-0.1) 10/23/19 06:52 Add Manual Diff Complete 10/11/19 04:42 Total Counted 100 10/11/19 04:42 Seg Neutrophils % 83.3 % (40.0-70.0) H 10/23/19 06:52 Seg Neuts % (Manual) 93.0 % (40.0-70.0) H 10/11/19 04:42 Band Neutrophils % 1.0 % 10/11/19 04:42 Lymphocytes % (Manual) 2.0 % (13.4-35.0) L 10/11/19 04:42 Reactive Lymphs % (Man) 0 % 10/11/19 04:42 Monocytes % (Manual) 4.0 % (0.0-7.3) 10/11/19 04:42 Eosinophils % (Manual) 0 % (0.0-4.3) 10/11/19 04:42 Basophils % (Manual) 0 % (0.0-1.8) 10/11/19 04:42 Metamyelocytes % 0 % 10/11/19 04:42 Myelocytes % 0 % 10/11/19 04:42 Promyelocytes % 0 % 10/11/19 04:42 Blast Cells % 0 % 10/11/19 04:42 Nucleated RBC % Not Reportable 10/11/19 04:42 Seg Neutrophils # 11.6 K/mm3 (1.8-7.7) H 10/23/19 06:52 Seg Neutrophils # Man 14.8 K/mm3 (1.8-7.7) H 10/11/19 04:42 Band Neutrophils # 0.2 K/mm3 10/11/19 04:42 Lymphocytes # (Manual) 0.3 K/mm3 (1.2-5.4) L 10/11/19 04:42 Abs React Lymphs (Man) 0.0 K/mm3 10/11/19 04:42 Monocytes # (Manual) 0.6 K/mm3 (0.0-0.8) 10/11/19 04:42 Eosinophils # (Manual) 0.0 K/mm3 (0.0-0.4) 10/11/19 04:42 Basophils # (Manual) 0.0 K/mm3 (0.0-0.1) 10/11/19 04:42 Metamyelocytes # 0.0 K/mm3 10/11/19 04:42 Myelocytes # 0.0 K/mm3 10/11/19 04:42 Promyelocytes # 0.0 K/mm3 10/11/19 04:42 Blast Cells # 0.0 K/mm3 10/11/19 04:42 WBC Morphology Not Reportable 10/11/19 04:42 Hypersegmented Neuts Not Reportable 10/11/19 04:42 Hyposegmented Neuts Not Reportable 10/11/19 04:42 Hypogranular Neuts Not Reportable 10/11/19 04:42 Smudge Cells Not Reportable 10/11/19 04:42 Toxic Granulation Not Reportable 10/11/19 04:42 Toxic Vacuolation Not Reportable 10/11/19 04:42 Dohle Bodies Not Reportable 10/11/19 04:42 Pelger-Huet Anomaly Not Reportable 10/11/19 04:42 Glenys Rods Not Reportable 10/11/19 04:42 Platelet Estimate Consistent w auto 10/11/19 04:42 Clumped Platelets Not Reportable 10/11/19 04:42 Plt Clumps, EDTA Not Reportable 10/11/19 04:42 Large Platelets Not Reportable 10/11/19 04:42 Giant Platelets Not Reportable 10/11/19 04:42 Platelet Satelliting Not Reportable 10/11/19 04:42 Plt Morphology Comment Not Reportable 10/11/19 04:42 RBC Morphology Not Reportable 10/11/19 04:42 Dimorphic RBCs Not Reportable 10/11/19 04:42 Polychromasia Not Reportable 10/11/19 04:42 Hypochromasia Not Reportable 10/11/19 04:42 Poikilocytosis Not Reportable 10/11/19 04:42 Anisocytosis Not Reportable 10/11/19 04:42 Microcytosis Not Reportable 10/11/19 04:42 Macrocytosis Not Reportable 10/11/19 04:42 Spherocytes Not Reportable 10/11/19 04:42 Pappenheimer Bodies Not Reportable 10/11/19 04:42 Sickle Cells Not Reportable 10/11/19 04:42 Target Cells Not Reportable 10/11/19 04:42 Tear Drop Cells Not Reportable 10/11/19 04:42 Ovalocytes Not Reportable 10/11/19 04:42 Helmet Cells Not Reportable 10/11/19 04:42 [place] Bodies Not Reportable 10/11/19 04:42 [place] Rings Not Reportable 10/11/19 04:42 [place] Cells Not Reportable 10/11/19 04:42 Bite Cells Not Reportable 10/11/19 04:42 Crenated Cell Not Reportable 10/11/19 04:42 Elliptocytes Rare 10/11/19 04:42 Acanthocytes (Spur) Not Reportable 10/11/19 04:42 Rouleaux Not Reportable 10/11/19 04:42 Hemoglobin C Crystals Not Reportable 10/11/19 04:42 Schistocytes Not Reportable 10/11/19 04:42 Malaria parasites Not Reportable 10/11/19 04:42 Robin Bodies Not Reportable 10/11/19 04:42 Hem Pathologist Commnt No 10/11/19 04:42 PT 14.7 Sec. (12.2-14.9) 10/19/19 08:00 INR 1.14 (0.87-1.13) H 10/19/19 08:00 APTT 34.3 Sec. (24.2-36.6) 10/19/19 08:00 Sodium 136 mmol/L (137-145) L D 10/24/19 08:02 Potassium 3.6 mmol/L (3.6-5.0) 10/24/19 08:02 Chloride 97.5 mmol/L (98-107) L 10/24/19 08:02 Carbon Dioxide 26 mmol/L (22-30) D 10/24/19 08:02 Anion Gap 16 mmol/L 10/24/19 08:02 BUN 33 mg/dL (9-20) H 10/24/19 08:02 Creatinine 2.3 mg/dL (0.8-1.5) H 10/24/19 08:02 Estimated GFR 27 ml/min 10/24/19 08:02 BUN/Creatinine Ratio 14 % 10/24/19 08:02 Glucose 119 mg/dL (75-100) H 10/24/19 08:02 POC Glucose 139 (70-105) H 10/13/19 18:18 Lactic Acid 3.20 mmol/L (0.7-2.0) H* 10/10/19 23:04 Calcium 8.3 mg/dL (8.4-10.2) L 10/24/19 08:02 Phosphorus 3.50 mg/dL (2.5-4.5) 10/24/19 08:02 Magnesium 1.80 mg/dL (1.7-2.3) 10/24/19 08:36 Total Bilirubin 2.50 mg/dL (0.1-1.2) H 10/10/19 21:40 AST 39 units/L (5-40) 10/10/19 21:40 ALT 22 units/L (7-56) 10/10/19 21:40 Alkaline Phosphatase 102 units/L (35-129) 10/10/19 21:40 Ammonia 54.0 umol/L (25-60) 10/10/19 21:40 Lactate Dehydrogenase 401 units/L (91-180) H 10/19/19 05:22 Total Creatine Kinase 563 units/L (55-170) H 10/14/19 10:56 Troponin T 0.024 ng/mL (0.00-0.029) 10/10/19 21:40 Serum Total Protein 5.4 g/dL (6.1-8.1) L 10/15/19 08:46 Total Protein 7.6 g/dL (6.3-8.2) 10/10/19 21:40 Albumin 2.7 g/dL (3.8-4.8) L 10/15/19 08:46 Albumin/Globulin Ratio 1.2 % 10/10/19 21:40 Onprn-3-Fpfhfddfh 0.5 g/dL (0.2-0.3) H 10/15/19 08:46 Kdkid-7-Clyuwmhej 0.9 g/dL (0.5-0.9) 10/15/19 08:46 Beta Globulins 0.3 g/dL (0.2-0.5) 10/15/19 08:46 Gamma Globulins 0.7 g/dL (0.8-1.7) L 10/15/19 08:46 Abnorm Protein Band 1 see below 10/15/19 08:46 PEP Interpretation see below H 10/15/19 08:46 TSH 2.550 mlU/mL (0.270-4.200) 10/10/19 21:40 Urine Color Yellow (Yellow) 10/10/19 23:18 Urine Turbidity Clear (Clear) 10/10/19 23:18 Urine pH 6.0 (5.0-7.0) 10/10/19 23:18 Ur Specific [place] 1.015 (1.003-1.030) 10/10/19 23:18 Urine Protein 300 mg/dl mg/dL (Negative) 10/10/19 23:18 Urine Glucose (UA) 50 mg/dL (Negative) 10/10/19 23:18 Urine Ketones Neg mg/dL (Negative) 10/10/19 23:18 Urine Blood Sm (Negative) 10/10/19 23:18 Urine Nitrite Neg (Negative) 10/10/19 23:18 Urine Bilirubin Neg (Negative) 10/10/19 23:18 Urine Urobilinogen < 2.0 mg/dL (<2.0) 10/10/19 23:18 Ur Leukocyte Esterase Neg (Negative) 10/10/19 23:18 Urine WBC (Auto) 1.0 /HPF (0.0-6.0) 10/10/19 23:18 Urine RBC (Auto) 9.0 /HPF (0.0-6.0) 10/10/19 23:18 U Epithel Cells (Auto) < 1.0 /HPF (0-13.0) 10/10/19 23:18 Urine Bacteria (Auto) 1+ /HPF (Negative) 10/10/19 23:18 Hyaline Casts 6 /LPF 10/10/19 23:18 Urine Mucus Few /HPF 10/10/19 23:18 CSF Appearance Clear 10/19/19 14:20 CSF Color Colorless 10/19/19 14:20 CSF WBC 4 /mm3 (1-10) 10/19/19 14:20 CSF RBC 3 /mm3 (0-0) 10/19/19 14:20 CSF Seg Neutrophils 2.0 % (0-6) 10/19/19 14:20 CSF Lymphocytes % 50.0 % (40-80) 10/19/19 14:20 CSF Reactive Lymphs 0 % 10/19/19 14:20 CSF Monocytes % 48.0 % (15-45) 10/19/19 14:20 CSF Eosinophils % 0 % 10/19/19 14:20 CSF Basophils 0 % 10/19/19 14:20 CSF Pathologist Review C 10/19/19 14:20 CSF Glucose 48 mg/dL 10/19/19 14:20 CSF Total Protein 65 mg/dL 10/19/19 14:20 ARABELLA Screen Negative (Negative) 10/14/19 10:56 Proteinase 3 (PR3) Ab <1.0 AI (<1.0) 10/14/19 10:56 Myeloperoxidase Ab <1.0 AI (<1.0) 10/14/19 10:56 Complement C3 101 mg/dL () 10/14/19 10:56 Complement C4 43 mg/dL () 10/14/19 10:56 Syphilis IgG Antibody Reactive (NonReactive) A 10/15/19 14:53 RPR Titer 1:2 10/18/19 Unknown Coronavirus (PCR) Negative (Negative) 10/11/19 11:14 Hepatitis A IgM Ab Non-reactive (NonReactive) 10/15/19 20:27 Hep Bs Antigen Reactive (Negative) 10/15/19 20:27 Hep B Core IgM Ab Non-reactive (NonReactive) 10/15/19 20:27 Hepatitis C Antibody Non-reactive (NonReactive) 10/15/19 20:27 HIV 1&2 Antibody Rapid Non react (Non React) 10/14/19 10:56 HIV P24 Antigen Non react (Non React) 10/14/19 10:56 Influenza A (Rapid) Negative (Negative) 10/10/19 22:25 Influenza B (Rapid) Negative (Negative) 10/10/19 22:25 Schistocytes Smear None seen 10/14/19 10:56 Blood Type B POSITIVE 10/21/19 06:38 Antibody Screen Negative 10/21/19 06:38 Crossmatch See Detail 10/21/19 06:38 - Diagnostic Impressions Diagnostic Impressions: Echocardiogram 10/12/19 09:05 Transthoracic Echocardiogram Indication: Afib, HTN BP: 135/78 HR: 115 Conclusions *Global left ventricular systolic function is moderately decreased. *The estimated ejection fraction is 35-40%, but optimal assessment is limited by irregular heart rate. *Mild concentric left ventricular hypertrophy is observed. *The left and right atria are both severely dilated. *There is mild aortic regurgitation. *There is trace-mild mitral regurgitation. *There is moderate tricuspid regurgitation. *There is evidence of mild pulmonary hypertension. *The right ventricular systolic pressure is calculated at 28 mmHg. Findings Left Ventricle: The left ventricular chamber size is mildly dilated. Mild concentric left ventricular hypertrophy is observed. Global left ventricular systolic function is moderately decreased. The estimated ejection fraction is 35-40%. Left Atrium: The left atrium is severely dilated. Right Ventricle: The right ventricle is slightly dilated. Right Atrium: The right atrium is moderate to severely dilated. Aortic Valve: The aortic valve is trileaflet. The aortic valve leaflets are moderately thickened. There is mild aortic regurgitation. There is no evidence of aortic stenosis. Mitral Valve: The mitral valve leaflets are mildly thickened. There is trace of mitral regurgitation. There is no evidence of mitral stenosis. Tricuspid Valve: There is moderate tricuspid regurgitation. The right ventricular systolic pressure is calculated at 28 mmHg. There is evidence of mild pulmonary hypertension. Pulmonic Valve: There is mild pulmonic regurgitation. Pericardium: There is no pericardial effusion. Aorta: There is no dilatation of the aortic root. Venous: The inferior vena cava appears normal in size. Measurements Chambers 2D Name Value Normal Range IVSd (2D) 1.27 cm (0.6 - 1.1) LVPWd (2D) 1.06 cm (0.6 - 1.1) LVIDd (2D) 4.06 cm (3.7 - 5.6) LVIDs (2D) 2.91 cm (2 - 3.8) LV FS (2D) 28.16 % - EF Teichholz (2D) 54.96 % - Ao root diameter (2D) 2.83 cm (2 - 3.7) Volumes/Mass Name Value Normal Range LA ESV SP 4CH (A/L) 74.63 ml - LA ESV SP 2CH (A/L) 67.89 ml - LA ESV BP (A/L) 81.32 ml - LA ESV BP (A/L) index 54.21 ml/m2 - LA ESV SP 4CH (MOD) 65.06 ml - LA ESV SP 2CH (MOD) 65.08 ml - LA ESV BP (MOD) 74.22 ml - LA ESV BP (MOD) index 49.48 ml/m2 - LV EDV SP 4CH (MOD) 46.88 ml - LV ESV SP 4CH (MOD) 14.91 ml - EF SP 4CH (MOD) 68.19 % - LV EDV SP 2CH (MOD) 26.53 ml - LV ESV SP 2CH (MOD) 11.71 ml - EF SP 2CH (MOD) 55.86 % - LV EDV BP 37.95 ml - LV ESV BP 13.85 ml - BP EF (MOD) 63.51 % - Diastolic/Systolic Function Name Value Normal Range MV E-wave Vmax 0.8 m/sec - MV deceleration time 145.29 msec - Aortic Valve Name Value Normal Range AV Vmax 0.79 m/sec - AV VTI 9.87 cm - AV peak gradient 2.5 mmHg - AV mean gradient 0.94 mmHg - LVOT diameter 2.12 cm - LVOT Vmax 0.69 m/sec - LVOT VTI 12.18 cm - LVOT peak gradient 1.93 mmHg - LVOT mean gradient 1.04 mmHg - SV LVOT 42.84 ml - YAMILA (continuity Vmax) 3.08 cm2 - YAMILA (continuity VTI) 4.34 cm2 - AR PHT 498.2 msec - AR peak gradient 55.86 mmHg - Tricuspid Valve Name Value Normal Range TR Vmax 2.52 m/sec - TR peak gradient 25.41 mmHg - RAP 3 mmHg - RVSP 28 mmHg - Pulmonic Valve/Qp:Qs Name Value Normal Range PV Vmax 0.74 m/sec - PV VTI 10.83 cm - PV peak gradient 2.2 mmHg - PV mean gradient 1.08 mmHg - FL end-diastolic Vmax 1.28 m/sec - RVOT Vmax 0.01 m/sec - RVOT VTI 11.04 cm - RVOT peak gradient 2.38 mmHg - Miranda/IV: Voiding Method Condom Catheter IV Catheter Type [Left Hand] Peripheral IV IV Catheter Type [Right VAS Cath Internal Jugular] IV Catheter Type [Left Forearm Peripheral IV ] IV Catheter Type [Right INT / Saline Lock Forearm] Active Medications - Current Medications Current Medications: Generic Name Dose Route Start Last Admin Trade Name Freq PRN Reason Stop Dose Admin Acetaminophen 650 mg 10/11/19 02:03 Tylenol PO Q4H PRN Pain MILD(1-3)/Fever >100.5/ANNE Hydralazine HCl 5 mg 10/11/19 08:00 Apresoline IV Q30MIN PRN Hypertension Hydralazine HCl 25 mg 10/21/19 15:00 10/24/19 05:53 Apresoline PO 25 mg Q8HR NETO Administration Dextrose 1,000 mls @ 50 mls/hr 10/16/19 10:00 10/23/19 22:01 D5w IV 125 mls/hr DIRECT NETO Administration Sodium Chloride 100 mls @ 999 mls/hr 10/23/19 12:00 Nacl 0.9% IV EMILIE PRN Hypotension Isosorbide Dinitrate/Hydralazine 1 each 10/13/19 14:00 10/24/19 05:52 Bidil 20/37.5mg PO 1 each Q8HR NETO Administration Labetalol HCl 10 mg 10/11/19 13:00 10/18/19 04:10 Labetalol IV 10 mg Q4H PRN Administration Hypertension Metoprolol Tartrate 50 mg 10/11/19 10:00 10/24/19 09:27 Metoprolol PO Not Given BID NETO Ondansetron HCl 4 mg 10/11/19 02:03 Zofran IV Q8H PRN Nausea And Vomiting Pantoprazole Sodium 40 mg 10/24/19 10:00 10/24/19 09:26 Protonix PO 40 mg DAILY NETO Administration Sodium Chloride 10 ml 10/11/19 10:00 10/23/19 22:03 Sodium Chloride Flush Syringe 10 Ml IV 10 ml BID NETO Administration Sodium Chloride 10 ml 10/11/19 02:03 Sodium Chloride Flush Syringe 10 Ml IV PRN PRN LINE FLUSH Nutrition/Malnutrition Assess - Dietary Evaluation Nutrition/Malnutrition Findings: Nutrition Notes Start: 10/11/19 13:24 Freq: Status: Active Protocol: Document 10/23/19 14:16 LM (Rec: 10/23/19 14:22 LM -[email or web address]) Nutrition Notes Initial or Follow up Reassessment Current Diagnosis Acute Kidney Injury, Hypertension Other Pertinent Diagnosis on HD, dehydration, Afib, AMS Current Diet Cardiac pureed Labs/Tests K 3.3 BUN 81 Cr 3.5 BG 166 Pertinent Medications D5w at 35ml/hr Height 5 ft 6 in Weight 49.1 kg [place] Body Weight (kg) 64.54 BMI 17.4 Subjective/Other Information RN stated pt eats very little and takes sips of Nepro. Burn Absent Trauma Absent Current % PO Poor (25-49%) Minimum of two criteria No Energy Intake (non-severe) <75% Estimated Energy Requirement >7 days #1 Nutrition Diagnosis Inadequate oral intake Diagnosis Progress(for reassessment Continues documentation) Is patient on ventilator? No Is Patient Ambulatory and/or Out of Bed No REE-([facility]-confined to bed) 1361.880 Kcal/Kg value to use for calculation 39 Approximate Energy Requirements Using 1915 kcal/Kg Calculation Used for Recommendations Kcal/kg Additional Notes Protein: 37-55g (0.8-1.2g/kg) Fluid: 1 ml/kcal or per MD Nutrition Intervention Change Diet Order: Continue pureed or start TF if intakes continue to be less than 50% Add Supplement/Snack (indicate name/kcal Nepro BID /protein ) Provides kCal: 850 Provides Protein (gm) 38 Follow-Up By: 10/25/19 Additional Comments F/U for POC
--- NOTE | 2019-10-24 11:04 | Progress Note ---
Assessment and Plan Acute renal failure, possible ischemic ATN from low BP, also possible TTP/HUS Sepsis Afib with RVR Hypotension Thrombocytopenia Hypokalemia Plan: UOP is slowly improving, creatinine clearance ordered, if low will switch vascath to permcath Will monitor renal function off dialysis tomorrow before deciding if perm-cath is needed ARABELLA, ANCA, SPEP, C3, C4, Anti-GBM, SPEP, urine eosinophils-negative Secondary GN work up was negative except for HBVsag and RPR, ID is following [id number] today Replete potassium as needed Strict I&O monitoring Obtain daily weights Renally dose medications Avoid nephrotoxic agents Monitor electrolytes and renal function closely Subjective Date of service: 10/24/19 Principal diagnosis: Metabolic Encephalopathy Interval history: tolerated HD yesterday Objective - Vital Signs Vital signs: Vital Signs - 12hr 10/23/19 10/24/19 10/24/19 23:22 03:40 07:41 Temperature 97.6 F 97.6 F 98.8 F Pulse Rate 72 73 83 Respiratory 16 16 18 Rate Blood Pressure 89/51 121/76 104/58 O2 Sat by Pulse 100 97 99 Oximetry 10/24/19 09:27 Temperature Pulse Rate Respiratory Rate Blood Pressure 98/56 O2 Sat by Pulse Oximetry - General Appearance General appearance: well-developed, well-nourished EENT: ATNC, PERRL Neck: no JVD, no carotid bruit Respiratory: Present: Clear to Ascultation. Absent: Rales, Ronchi Cardiology: regular, S1S2 Gastrointestinal: normoactive bowel sounds, no hypoactive bowel sounds, no absent bowel sounds Integumentary: no rash, warm and dry Neurologic: no focal deficit Musculoskeletal: other (no edema in BLE) Psychiatric: other - Lab 10/23/19 06:52 10/24/19 08:02 Most recent lab results Calcium 8.3 mg/dL (8.4-10.2) L 10/24/19 08:02 Phosphorus 3.50 mg/dL (2.5-4.5) 10/24/19 08:02 Magnesium 1.80 mg/dL (1.7-2.3) 10/24/19 08:36 Medications & Allergies - Medications Allergies/Adverse Reactions: Allergies No Known Allergies Allergy (Unverified 10/10/19 21:31) Home Medications: Home Medications Medication Instructions Recorded Confirmed Last Taken Type Metoprolol 50 mg PO BID 10/10/19 10/18/19 Unknown History Active Medications: Generic Name Dose Route Start Last Admin Trade Name Lizy PRN Reason Stop Dose Admin Acetaminophen 650 mg 10/11/19 02:03 Tylenol PO Q4H PRN Pain MILD(1-3)/Fever >100.5/ANNE Hydralazine HCl 5 mg 10/11/19 08:00 Apresoline IV Q30MIN PRN Hypertension Hydralazine HCl 25 mg 10/21/19 15:00 10/24/19 05:53 Apresoline PO 25 mg Q8HR NETO Administration Dextrose 1,000 mls @ 50 mls/hr 10/16/19 10:00 10/23/19 22:01 D5w IV 125 mls/hr DIRECT NETO Administration Sodium Chloride 100 mls @ 999 mls/hr 10/23/19 12:00 Nacl 0.9% IV EMILIE PRN Hypotension Isosorbide Dinitrate/Hydralazine 1 each 10/13/19 14:00 10/24/19 05:52 Bidil 20/37.5mg PO 1 each Q8HR NETO Administration Labetalol HCl 10 mg 10/11/19 13:00 10/18/19 04:10 Labetalol IV 10 mg Q4H PRN Administration Hypertension Metoprolol Tartrate 50 mg 10/11/19 10:00 10/24/19 09:27 Metoprolol PO Not Given BID NETO Ondansetron HCl 4 mg 10/11/19 02:03 Zofran IV Q8H PRN Nausea And Vomiting Pantoprazole Sodium 40 mg 10/24/19 10:00 10/24/19 09:26 Protonix PO 40 mg DAILY NETO Administration Sodium Chloride 10 ml 10/11/19 10:00 10/23/19 22:03 Sodium Chloride Flush Syringe 10 Ml IV 10 ml BID NETO Administration Sodium Chloride 10 ml 10/11/19 02:03 Sodium Chloride Flush Syringe 10 Ml IV PRN PRN LINE FLUSH
--- NOTE | 2019-10-24 18:52 | XRay Report ---
ABDOMEN 1 VIEW(S) INDICATION / CLINICAL INFORMATION: dobhoff placement/tf placement. COMPARISON: None available. FINDINGS: TUBES / LINES: Feeding tube in satisfactory position with tip at the fundus. BOWEL GAS PATTERN: No significant abnormality. ADDITIONAL FINDINGS: No significant additional findings. Signer Name: Servando De Jesus MD Signed: 10/24/2019 3:40 PM Workstation Name: [id number]
[2019-10-24 22:20] LABS: Creatinine 24 Hour,Urine 0.3 (0.8-2.8); Creatinine,Urine 69.2 mg/dL (0.1-20.0)
[2019-10-25 05:59] LABS: Hematocrit 26.9 % (35.5-45.6); Hemoglobin 9.3 gm/dl (11.8-15.2); Mean Corpuscular HGB Conc 34 % (32-34); Mean Corpuscular Volume 92 fl (84-94); Platelet Count 123 K/mm3 (140-440); Red Blood Count 2.92 M/mm3 (3.65-5.03); Red Cell Distribution Width 18.9 % (13.2-15.2)
[2019-10-25] MEDS: hydrALAZINE 25 MG TAB PO SCH ×3 (06:10→21:09)
[2019-10-25] MEDS: DEXTROSE 5% IN WATER 1,000 ML IV SCH (06:10)
[2019-10-25] MEDS: ISOSORB DINIT/HYDRALAZINE 20-37.5MG TAB PO SCH ×3 (06:10→21:10)
[2019-10-25 06:18] LABS: Calcium 7.7 mg/dL (8.4-10.2)
--- NOTE | 2019-10-25 09:02 | Progress Note ---
Assessment and Plan Assessment and plan: Toxic metabolic encephalopathy. Treat underlying causes SIRS No obvious infection Chest x-ray negative, CT of the abdomen showed some mild nonspecific inflammation near the distal aorta. ID following A. fib with RVR, status post conversion DC heparin drip, patient thrombocytopenic cardiology following Acute metabolic encephalopathy altered mental status,confusion Anemia. Type and cross and transfuse 2 units PRBCs. Melena. GI consulted Chronic hepatitis B. hepatitis B surface antigen positive. LFTs not elevated. Hypertension uncontrolled Start IV hydralazine, Nitropaste, monitor PRIMO due to ATN Nephrology following Hypernatremia Nephrology following Hypokalemia replace as needed Thrombocytopenia hematology following surveillance manager for possible placement DVT prophylaxis with SCDs only because of low platelets 10/15/19 patient with acute kidney injury due to ATN. Slight improvement. Cr 3.[address] Oliveira, hematology for low plaletels but he says he does not work here anymore. called and updated daughter on [phone] 10/16/19 patient presented with alterd mental status,nausea,vomiting. Found to have PRIMO due to ATN, thrombocytopenia. Cr worsening. Discussed with Nephrology yesterday. Plan to initiate dialysis if he gets worse. labs show Syphilis IgG antibody positive. ID to evaluate. 10/17/2019. Follow-up hepatitis B PCR. Check MRI of brain. Follow-up RPR with titer to determine active syphilis. 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 If mental status does not improve consider LP. 10/18/2019. Neurology evaluated the patient and diagnosed with metabolic encephalopathy with etiology likely secondary to hypertensive urgency, A-fib w/ RVR, ARF requiring HD, SIRS, hypernatremia, lactic acidosis, and leukocytosis. ID team investigating for possible syphilis. As patient was not found to have an infectious source as of yet, agree with ID that MRI brain would aid in further investigating potential of meningo-encephalitis, and to rule out any intracranial pathology contributing to current mental status. If patient's mental status does not continue to improve as metabolic/infectious abnormalities are corrected, then will consider LP/CSF studies. 10/19/2019. Neurology evaluated the patient and diagnosed with metabolic encephalopathy with etiology likely secondary to hypertensive urgency, A-fib w/ RVR, ARF requiring HD, SIRS, hypernatremia, lactic acidosis, and leukocytosis. CT head: Lt. frontal white matter hypodensity, age indeterminant. MRI Brain: right temporal area of diffusion restriction, which may be T2 shine-through vs. post-ictal change vs. encephalitis. Unlikely to be infarct, however can not be completely ruled out, given patient has A-fib. Echo: EF 35-40%, LA severely dilated. EEG pending. 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 Follow-up lumbar puncture. 10/20/19. ?meningitis ?neurosyphilis. ID to rule out neurosyphilis, HSV encephalitis. MRI brain shows small area of diffusion signal abnormality in the anterolateral cortex on the right. CSF studies pending. Continue acyclovir 500 mg IV daily per ID. From kidney perspective, the patient cont to be anuric, likely will need permcath placement Wednesday and outpatient dialysis if no improvement in PRIMO, will try to hold HD during the weekend if possible. LDH cont to be elevated, hematology consult is not available, [id number] requested on 10/18. Secondary GN work up was negative except for HBVsag and RPR, ID is following. With regards to atrial fibrillation, patient remains on metoprolol for rate control. Pt has been deemed to be a poor candidate for skilled nursing anticoagulation given overall frailty and thrombocytopenia. 10/21/2019. Patient noted to have anemia this morning and reports of melena per nursing. Patient will receive 2 units PRBCs and follow-up H&H. GI consultation pending. Stop aspirin. Protonix drip. CSF not consistent with meningitis/encephalitis. Acyclovir has been discontinued by ID. Patient with metabolic encephalopathy secondary to renal failure. Patient with acute renal failure likely ischemic ATN from hypotension. Patient continues to be anuric and will likely need PermCath placement Wednesday and outpatient dialysis if no improvement in PRIMO, will try to hold HD during the weekend if possible per nephrology recommendation. Neurology following. 10/22/2019. EGD revealed 1.5 cm duodenal bulb ulcer. Continue to follow H&H and transfuse for hemoglobin less than 7. Patient with metabolic encephalopathy secondary to renal failure. Patient with acute renal failure likely ischemic ATN from hypotension. Patient continues to be anuric and will likely need PermCath placement Wednesday and outpatient dialysis if no improvement in PRIMO. 10/23/2019. EGD revealed 1.5 cm duodenal bulb ulcer. Continue to follow H&H and transfuse for hemoglobin less than 7. Patient with metabolic encephalopathy secondary to renal failure. Patient with acute renal failure likely ischemic ATN from hypotension. Per nephrology, patient continues to be anuric and will likely have PermCath placement today and outpatient dialysis if no improvement in PRIMO. 10/24/2019 Patient is 84 yo with acute kidney injury due to ATN, therefore started on hemodialysis. surveillance manager to arrange outpatient dialysis. Patient also had GI bleed. I discussed with Dr. Barth. He recommends Dobhoff tube. I discussed with Nurse,orders placed. 10/25/2019 Patient with acute kidney injury due to ATN, started on hemodialysis. Dobhoff tube placed as recommended by GI Physician. No fever. History Interval history: Patient with failure to thrive with afib,presented with nausea, vomiting altered mental status Diagnosed with acute kidney injury, started on dialysis Dobhoff tube placed Hospitalist Physical - Physical exam Narrative exam: GEN: Not in acute distress, malnourished HEENT: Normocephalic, atraumatic, Neck: supple, No JVD Lungs: Clear to auscultation bilaterally, heart;S1 and S2 reg, no murmurs, rubs or gallop Abd:soft, non tender, non distended, normal bowel sounds, Ext: No edema, no clubbing, no cyanosis, Neuro: Awake,alert, confused - Constitutional Vitals: Temp Pulse Resp BP Pulse Ox 97.8 F 64 18 112/61 97 10/25/19 04:00 10/25/19 06:10 10/25/19 04:00 10/25/19 06:10 10/25/19 04:00 General appearance: Present: no acute distress HEART Score - HEART Score Troponin: Troponin T 0.024 ng/mL (0.00-0.029) 10/10/19 21:40 Results - Labs CBC & Chem 7: 10/25/19 05:17 10/25/19 05:17 Labs: Laboratory Last Values WBC 10.5 K/mm3 (4.5-11.0) 10/25/19 05:17 RBC 2.92 M/mm3 (3.65-5.03) L 10/25/19 05:17 Hgb 9.3 gm/dl (11.8-15.2) L 10/25/19 05:17 Hct 26.9 % (35.5-45.6) L 10/25/19 05:17 MCV 92 fl (84-94) 10/25/19 05:17 MCH 32 pg (28-32) 10/25/19 05:17 MCHC 34 % (32-34) 10/25/19 05:17 RDW 18.9 % (13.2-15.2) H 10/25/19 05:17 Plt Count 123 K/mm3 (140-440) L 10/25/19 05:17 Lymph % (Auto) 9.0 % (13.4-35.0) L 10/23/19 06:52 [place] % (Auto) 6.5 % (0.0-7.3) 10/23/19 06:52 Eos % (Auto) 0.9 % (0.0-4.3) 10/23/19 06:52 Baso % (Auto) 0.3 % (0.0-1.8) 10/23/19 06:52 Lymph # 1.3 K/mm3 (1.2-5.4) 10/23/19 06:52 Dundy # 0.9 K/mm3 (0.0-0.8) H 10/23/19 06:52 Eos # 0.1 K/mm3 (0.0-0.4) 10/23/19 06:52 Baso # 0.0 K/mm3 (0.0-0.1) 10/23/19 06:52 Add Manual Diff Complete 10/11/19 04:42 Total Counted 100 10/11/19 04:42 Seg Neutrophils % 83.3 % (40.0-70.0) H 10/23/19 06:52 Seg Neuts % (Manual) 93.0 % (40.0-70.0) H 10/11/19 04:42 Band Neutrophils % 1.0 % 10/11/19 04:42 Lymphocytes % (Manual) 2.0 % (13.4-35.0) L 10/11/19 04:42 Reactive Lymphs % (Man) 0 % 10/11/19 04:42 Monocytes % (Manual) 4.0 % (0.0-7.3) 10/11/19 04:42 Eosinophils % (Manual) 0 % (0.0-4.3) 10/11/19 04:42 Basophils % (Manual) 0 % (0.0-1.8) 10/11/19 04:42 Metamyelocytes % 0 % 10/11/19 04:42 Myelocytes % 0 % 10/11/19 04:42 Promyelocytes % 0 % 10/11/19 04:42 Blast Cells % 0 % 10/11/19 04:42 Nucleated RBC % Not Reportable 10/11/19 04:42 Seg Neutrophils # 11.6 K/mm3 (1.8-7.7) H 10/23/19 06:52 Seg Neutrophils # Man 14.8 K/mm3 (1.8-7.7) H 10/11/19 04:42 Band Neutrophils # 0.2 K/mm3 10/11/19 04:42 Lymphocytes # (Manual) 0.3 K/mm3 (1.2-5.4) L 10/11/19 04:42 Abs React Lymphs (Man) 0.0 K/mm3 10/11/19 04:42 Monocytes # (Manual) 0.6 K/mm3 (0.0-0.8) 10/11/19 04:42 Eosinophils # (Manual) 0.0 K/mm3 (0.0-0.4) 10/11/19 04:42 Basophils # (Manual) 0.0 K/mm3 (0.0-0.1) 10/11/19 04:42 Metamyelocytes # 0.0 K/mm3 10/11/19 04:42 Myelocytes # 0.0 K/mm3 10/11/19 04:42 Promyelocytes # 0.0 K/mm3 10/11/19 04:42 Blast Cells # 0.0 K/mm3 10/11/19 04:42 WBC Morphology Not Reportable 10/11/19 04:42 Hypersegmented Neuts Not Reportable 10/11/19 04:42 Hyposegmented Neuts Not Reportable 10/11/19 04:42 Hypogranular Neuts Not Reportable 10/11/19 04:42 Smudge Cells Not Reportable 10/11/19 04:42 Toxic Granulation Not Reportable 10/11/19 04:42 Toxic Vacuolation Not Reportable 10/11/19 04:42 Dohle Bodies Not Reportable 10/11/19 04:42 Pelger-Huet Anomaly Not Reportable 10/11/19 04:42 Glenys Rods Not Reportable 10/11/19 04:42 Platelet Estimate Consistent w auto 10/11/19 04:42 Clumped Platelets Not Reportable 10/11/19 04:42 Plt Clumps, EDTA Not Reportable 10/11/19 04:42 Large Platelets Not Reportable 10/11/19 04:42 Giant Platelets Not Reportable 10/11/19 04:42 Platelet Satelliting Not Reportable 10/11/19 04:42 Plt Morphology Comment Not Reportable 10/11/19 04:42 RBC Morphology Not Reportable 10/11/19 04:42 Dimorphic RBCs Not Reportable 10/11/19 04:42 Polychromasia Not Reportable 10/11/19 04:42 Hypochromasia Not Reportable 10/11/19 04:42 Poikilocytosis Not Reportable 10/11/19 04:42 Anisocytosis Not Reportable 10/11/19 04:42 Microcytosis Not Reportable 10/11/19 04:42 Macrocytosis Not Reportable 10/11/19 04:42 Spherocytes Not Reportable 10/11/19 04:42 Pappenheimer Bodies Not Reportable 10/11/19 04:42 Sickle Cells Not Reportable 10/11/19 04:42 Target Cells Not Reportable 10/11/19 04:42 Tear Drop Cells Not Reportable 10/11/19 04:42 Ovalocytes Not Reportable 10/11/19 04:42 Helmet Cells Not Reportable 10/11/19 04:42 [place] Bodies Not Reportable 10/11/19 04:42 [place] Rings Not Reportable 10/11/19 04:42 Paula Cells Not Reportable 10/11/19 04:42 Bite Cells Not Reportable 10/11/19 04:42 Crenated Cell Not Reportable 10/11/19 04:42 Elliptocytes Rare 10/11/19 04:42 Acanthocytes (Spur) Not Reportable 10/11/19 04:42 Rouleaux Not Reportable 10/11/19 04:42 Hemoglobin C Crystals Not Reportable 10/11/19 04:42 Schistocytes Not Reportable 10/11/19 04:42 Malaria parasites Not Reportable 10/11/19 04:42 Robin Bodies Not Reportable 10/11/19 04:42 Hem Pathologist Commnt No 10/11/19 04:42 PT 14.7 Sec. (12.2-14.9) 10/19/19 08:00 INR 1.14 (0.87-1.13) H 10/19/19 08:00 APTT 34.3 Sec. (24.2-36.6) 10/19/19 08:00 Sodium 136 mmol/L (137-145) L 10/25/19 05:17 Potassium 3.6 mmol/L (3.6-5.0) 10/25/19 05:17 Chloride 96.3 mmol/L (98-107) L 10/25/19 05:17 Carbon Dioxide 24 mmol/L (22-30) 10/25/19 05:17 Anion Gap 19 mmol/L 10/25/19 05:17 BUN 46 mg/dL (9-20) H 10/25/19 05:17 Creatinine 2.7 mg/dL (0.8-1.5) H 10/25/19 05:17 Estimated GFR 23 ml/min 10/25/19 05:17 BUN/Creatinine Ratio 17 % 10/25/19 05:17 Glucose 98 mg/dL (75-100) 10/25/19 05:17 POC Glucose 139 (70-105) H 10/13/19 18:18 Lactic Acid 3.20 mmol/L (0.7-2.0) H* 10/10/19 23:04 Calcium 7.7 mg/dL (8.4-10.2) L 10/25/19 05:17 Phosphorus 4.40 mg/dL (2.5-4.5) D 10/25/19 05:17 Magnesium 1.80 mg/dL (1.7-2.3) 10/24/19 08:36 Total Bilirubin 2.50 mg/dL (0.1-1.2) H 10/10/19 21:40 AST 39 units/L (5-40) 10/10/19 21:40 ALT 22 units/L (7-56) 10/10/19 21:40 Alkaline Phosphatase 102 units/L (35-129) 10/10/19 21:40 Ammonia 54.0 umol/L (25-60) 10/10/19 21:40 Lactate Dehydrogenase 401 units/L (91-180) H 10/19/19 05:22 Total Creatine Kinase 563 units/L (55-170) H 10/14/19 10:56 Troponin T 0.024 ng/mL (0.00-0.029) 10/10/19 21:40 Serum Total Protein 5.4 g/dL (6.1-8.1) L 10/15/19 08:46 Total Protein 7.6 g/dL (6.3-8.2) 10/10/19 21:40 Albumin 2.7 g/dL (3.8-4.8) L 10/15/19 08:46 Albumin/Globulin Ratio 1.2 % 10/10/19 21:40 Oflfu-6-Dnjiywsgp 0.5 g/dL (0.2-0.3) H 10/15/19 08:46 Mbmjg-0-Yazvwhzhz 0.9 g/dL (0.5-0.9) 10/15/19 08:46 Beta Globulins 0.3 g/dL (0.2-0.5) 10/15/19 08:46 Gamma Globulins 0.7 g/dL (0.8-1.7) L 10/15/19 08:46 Abnorm Protein Band 1 see below 10/15/19 08:46 PEP Interpretation see below H 10/15/19 08:46 TSH 2.550 mlU/mL (0.270-4.200) 10/10/19 21:40 Urine Color Yellow (Yellow) 10/10/19 23:18 Urine Turbidity Clear (Clear) 10/10/19 23:18 Urine pH 6.0 (5.0-7.0) 10/10/19 23:18 Ur Specific [place] 1.015 (1.003-1.030) 10/10/19 23:18 Urine Protein 300 mg/dl mg/dL (Negative) 10/10/19 23:18 Urine Glucose (UA) 50 mg/dL (Negative) 10/10/19 23:18 Urine Ketones Neg mg/dL (Negative) 10/10/19 23:18 Urine Blood Sm (Negative) 10/10/19 23:18 Urine Nitrite Neg (Negative) 10/10/19 23:18 Urine Bilirubin Neg (Negative) 10/10/19 23:18 Urine Urobilinogen < 2.0 mg/dL (<2.0) 10/10/19 23:18 Ur Leukocyte Esterase Neg (Negative) 10/10/19 23:18 Urine WBC (Auto) 1.0 /HPF (0.0-6.0) 10/10/19 23:18 Urine RBC (Auto) 9.0 /HPF (0.0-6.0) 10/10/19 23:18 U Epithel Cells (Auto) < 1.0 /HPF (0-13.0) 10/10/19 23:18 Urine Bacteria (Auto) 1+ /HPF (Negative) 10/10/19 23:18 Hyaline Casts 6 /LPF 10/10/19 23:18 Urine Mucus Few /HPF 10/10/19 23:18 Urine Total Volume 500 ml 10/24/19 22:00 Urine Creatinine 69.2 mg/dL (0.1-20.0) H 10/24/19 22:00 Ur Creatinine 24 Hour 0.3 (0.8-2.8) L 10/24/19 22:00 CSF Appearance Clear 10/19/19 14:20 CSF Color Colorless 10/19/19 14:20 CSF WBC 4 /mm3 (1-10) 10/19/19 14:20 CSF RBC 3 /mm3 (0-0) 10/19/19 14:20 CSF Seg Neutrophils 2.0 % (0-6) 10/19/19 14:20 CSF Lymphocytes % 50.0 % (40-80) 10/19/19 14:20 CSF Reactive Lymphs 0 % 10/19/19 14:20 CSF Monocytes % 48.0 % (15-45) 10/19/19 14:20 CSF Eosinophils % 0 % 10/19/19 14:20 CSF Basophils 0 % 10/19/19 14:20 CSF Pathologist Review C 10/19/19 14:20 CSF Glucose 48 mg/dL 10/19/19 14:20 CSF Total Protein 65 mg/dL 10/19/19 14:20 CSF VDRL Nonreactive (Nonreactive) 10/19/19 14:20 ARABELLA Screen Negative (Negative) 10/14/19 10:56 Proteinase 3 (PR3) Ab <1.0 AI (<1.0) 10/14/19 10:56 Myeloperoxidase Ab <1.0 AI (<1.0) 10/14/19 10:56 Complement C3 101 mg/dL () 10/14/19 10:56 Complement C4 43 mg/dL () 10/14/19 10:56 Syphilis IgG Antibody Reactive (NonReactive) A 10/15/19 14:53 RPR Titer 1:2 10/18/19 Unknown Coronavirus (PCR) Negative (Negative) 10/11/19 11:14 Hepatitis A IgM Ab Non-reactive (NonReactive) 10/15/19 20:27 Hep Bs Antigen Reactive (Negative) 10/15/19 20:27 Hep B Core IgM Ab Non-reactive (NonReactive) 10/15/19 20:27 Hepatitis C Antibody Non-reactive (NonReactive) 10/15/19 20:27 HIV 1&2 Antibody Rapid Non react (Non React) 10/14/19 10:56 HIV P24 Antigen Non react (Non React) 10/14/19 10:56 Influenza A (Rapid) Negative (Negative) 10/10/19 22:25 Influenza B (Rapid) Negative (Negative) 10/10/19 22:25 Schistocytes Smear None seen 10/14/19 10:56 Blood Type B POSITIVE 10/21/19 06:38 Antibody Screen Negative 10/21/19 06:38 Crossmatch See Detail 10/21/19 06:38 - Diagnostic Impressions Diagnostic Impressions: Echocardiogram 10/12/19 09:05 Transthoracic Echocardiogram Indication: Afib, HTN BP: 135/78 HR: 115 Conclusions *Global left ventricular systolic function is moderately decreased. *The estimated ejection fraction is 35-40%, but optimal assessment is limited by irregular heart rate. *Mild concentric left ventricular hypertrophy is observed. *The left and right atria are both severely dilated. *There is mild aortic regurgitation. *There is trace-mild mitral regurgitation. *There is moderate tricuspid regurgitation. *There is evidence of mild pulmonary hypertension. *The right ventricular systolic pressure is calculated at 28 mmHg. Findings Left Ventricle: The left ventricular chamber size is mildly dilated. Mild concentric left ventricular hypertrophy is observed. Global left ventricular systolic function is moderately decreased. The estimated ejection fraction is 35-40%. Left Atrium: The left atrium is severely dilated. Right Ventricle: The right ventricle is slightly dilated. Right Atrium: The right atrium is moderate to severely dilated. Aortic Valve: The aortic valve is trileaflet. The aortic valve leaflets are moderately thickened. There is mild aortic regurgitation. There is no evidence of aortic stenosis. Mitral Valve: The mitral valve leaflets are mildly thickened. There is trace of mitral regurgitation. There is no evidence of mitral stenosis. Tricuspid Valve: There is moderate tricuspid regurgitation. The right ventricular systolic pressure is calculated at 28 mmHg. There is evidence of mild pulmonary hypertension. Pulmonic Valve: There is mild pulmonic regurgitation. Pericardium: There is no pericardial effusion. Aorta: There is no dilatation of the aortic root. Venous: The inferior vena cava appears normal in size. Measurements Chambers 2D Name Value Normal Range IVSd (2D) 1.27 cm (0.6 - 1.1) LVPWd (2D) 1.06 cm (0.6 - 1.1) LVIDd (2D) 4.06 cm (3.7 - 5.6) LVIDs (2D) 2.91 cm (2 - 3.8) LV FS (2D) 28.16 % - EF Teichholz (2D) 54.96 % - Ao root diameter (2D) 2.83 cm (2 - 3.7) Volumes/Mass Name Value Normal Range LA ESV SP 4CH (A/L) 74.63 ml - LA ESV SP 2CH (A/L) 67.89 ml - LA ESV BP (A/L) 81.32 ml - LA ESV BP (A/L) index 54.21 ml/m2 - LA ESV SP 4CH (MOD) 65.06 ml - LA ESV SP 2CH (MOD) 65.08 ml - LA ESV BP (MOD) 74.22 ml - LA ESV BP (MOD) index 49.48 ml/m2 - LV EDV SP 4CH (MOD) 46.88 ml - LV ESV SP 4CH (MOD) 14.91 ml - EF SP 4CH (MOD) 68.19 % - LV EDV SP 2CH (MOD) 26.53 ml - LV ESV SP 2CH (MOD) 11.71 ml - EF SP 2CH (MOD) 55.86 % - LV EDV BP 37.95 ml - LV ESV BP 13.85 ml - BP EF (MOD) 63.51 % - Diastolic/Systolic Function Name Value Normal Range MV E-wave Vmax 0.8 m/sec - MV deceleration time 145.29 msec - Aortic Valve Name Value Normal Range AV Vmax 0.79 m/sec - AV VTI 9.87 cm - AV peak gradient 2.5 mmHg - AV mean gradient 0.94 mmHg - LVOT diameter 2.12 cm - LVOT Vmax 0.69 m/sec - LVOT VTI 12.18 cm - LVOT peak gradient 1.93 mmHg - LVOT mean gradient 1.04 mmHg - SV LVOT 42.84 ml - YAMILA (continuity Vmax) 3.08 cm2 - YAMILA (continuity VTI) 4.34 cm2 - AR PHT 498.2 msec - AR peak gradient 55.86 mmHg - Tricuspid Valve Name Value Normal Range TR Vmax 2.52 m/sec - TR peak gradient 25.41 mmHg - RAP 3 mmHg - RVSP 28 mmHg - Pulmonic Valve/Qp:Qs Name Value Normal Range PV Vmax 0.74 m/sec - PV VTI 10.83 cm - PV peak gradient 2.2 mmHg - PV mean gradient 1.08 mmHg - MA end-diastolic Vmax 1.28 m/sec - RVOT Vmax 0.01 m/sec - RVOT VTI 11.04 cm - RVOT peak gradient 2.38 mmHg - Miranda/IV: Voiding Method Condom Catheter IV Catheter Type [Left Hand] Peripheral IV IV Catheter Type [Right VAS Cath Internal Jugular] IV Catheter Type [Left Forearm Peripheral IV ] IV Catheter Type [Right INT / Saline Lock Forearm] Active Medications - Current Medications Current Medications: Generic Name Dose Route Start Last Admin Trade Name Freq PRN Reason Stop Dose Admin Acetaminophen 650 mg 10/11/19 02:03 Tylenol PO Q4H PRN Pain MILD(1-3)/Fever >100.5/ANNE Hydralazine HCl 5 mg 10/11/19 08:00 Apresoline IV Q30MIN PRN Hypertension Hydralazine HCl 25 mg 10/21/19 15:00 10/25/19 06:10 Apresoline PO 25 mg Q8HR NETO Administration Dextrose 1,000 mls @ 50 mls/hr 10/16/19 10:00 10/25/19 06:10 D5w IV 125 mls/hr DIRECT NETO Administration Sodium Chloride 100 mls @ 999 mls/hr 10/23/19 12:00 Nacl 0.9% IV EMILIE PRN Hypotension Isosorbide Dinitrate/Hydralazine 1 each 10/13/19 14:00 10/25/19 06:10 Bidil 20/37.5mg PO 1 each Q8HR NETO Administration Labetalol HCl 10 mg 10/11/19 13:00 10/18/19 04:10 Labetalol IV 10 mg Q4H PRN Administration Hypertension Metoprolol Tartrate 50 mg 10/11/19 10:00 10/24/19 22:05 Metoprolol PO 50 mg BID NETO Administration Ondansetron HCl 4 mg 10/11/19 02:03 Zofran IV Q8H PRN Nausea And Vomiting Pantoprazole Sodium 40 mg 10/24/19 10:00 10/24/19 09:26 Protonix PO 40 mg DAILY NETO Administration Sodium Chloride 10 ml 10/11/19 10:00 10/24/19 22:04 Sodium Chloride Flush Syringe 10 Ml IV 10 ml BID NETO Administration Sodium Chloride 10 ml 10/11/19 02:03 Sodium Chloride Flush Syringe 10 Ml IV PRN PRN LINE FLUSH Nutrition/Malnutrition Assess - Dietary Evaluation Nutrition/Malnutrition Findings: Nutrition Notes Start: 10/11/19 13:2 4 Freq: Status: Active Protocol: Document 10/23/19 14:16 LM (Rec: 10/23/19 14:22 LM [email or web address]) Nutrition Notes Initial or Follow up Reassessment Current Diagnosis Acute Kidney Injury, Hypertension Other Pertinent Diagnosis on HD, dehydration, Afib, AMS Current Diet Cardiac pureed Labs/Tests K 3.3 BUN 81 Cr 3.5 BG 166 Pertinent Medications D5w at 35ml/hr Height 5 ft 6 in Weight 49.1 kg [place] Body Weight (kg) 64.54 BMI 17.4 Subjective/Other Information RN stated pt eats very little and takes sips of Nepro. Burn Absent Trauma Absent Current % PO Poor (25-49%) Minimum of two criteria No Energy Intake (non-severe) <75% Estimated Energy Requirement >7 days #1 Nutrition Diagnosis Inadequate oral intake Diagnosis Progress(for reassessment Continues documentation) Is patient on ventilator? No Is Patient Ambulatory and/or Out of Bed No REE-([facility]-confined to bed) 1361.880 Kcal/Kg value to use for calculation 39 Approximate Energy Requirements Using 1915 kcal/Kg Calculation Used for Recommendations Kcal/kg Additional Notes Protein: 37-55g (0.8-1.2g/kg) Fluid: 1 ml/kcal or per MD Nutrition Intervention Change Diet Order: Continue pureed or start TF if intakes continue to be less than 50% Add Supplement/Snack (indicate name/kcal Nepro BID /protein ) Provides kCal: 850 Provides Protein (gm) 38 Follow-Up By: 10/25/19 Additional Comments F/U for POC
--- NOTE | 2019-10-25 10:27 | Progress Note ---
Assessment and Plan Atrial fibrillation, persistent on metoprolol for rate control Pt has been deemed to be a poor candidate for mcc anticoagulation given overall frailty, thrombocytopenia and severe anemia Acute renal failure -initiated on dialysis Hypertension Dilated Cardiomyopathy, uncertain duration an echo this admission shows atrial enlargement, decreased left ventricular systolic function, ejection fraction 35-40%. Continue medical therapy for dilated cardiomyopathy and rate controlling agents for atrial fibrillation that persists. Otherwise, conservative cardiac management. Subjective Date of service: 10/25/19 Principal diagnosis: Metabolic Encephalopathy Interval history: No interval cardiac changes. Afib with a well controlled ventricular rate on telemetry. Objective Vital Signs Temp Pulse Resp BP BP Pulse Ox 10/25/19 08:16 97.3 F L 69 16 98 10/25/19 08:15 97.3 F L 41 L 16 127/75 100 10/25/19 06:10 64 112/61 10/25/19 04:00 97.8 F 64 18 112/61 97 10/24/19 23:31 97.7 F 81 18 104/54 98 10/24/19 22:05 68 142/68 10/24/19 22:04 68 142/68 10/24/19 22:00 68 95 10/24/19 19:45 97.6 F 68 18 142/68 82 L 10/24/19 15:43 98.0 F 79 18 141/68 99 10/24/19 14:13 101/56 10/24/19 11:00 98.0 F 81 16 117/80 99 - Physical Examination General: No Apparent Distress, Cachectic Cardiac: Positive: irregularly irregular Extremities: Absent: edema - Labs and Meds CBC 10/25/19 Range/Units 05:17 WBC 10.5 (4.5-11.0) K/mm3 RBC 2.92 L (3.65-5.03) M/mm3 Hgb 9.3 L (11.8-15.2) gm/dl Hct 26.9 L (35.5-45.6) % Plt Count 123 L (140-440) K/mm3 Comprehensive Metabolic Panel 10/25/19 Range/Units 05:17 Sodium 136 L (137-145) mmol/L Potassium 3.6 (3.6-5.0) mmol/L Chloride 96.3 L (98-107) mmol/L Carbon Dioxide 24 (22-30) mmol/L BUN 46 H (9-20) mg/dL Creatinine 2.7 H (0.8-1.5) mg/dL Glucose 98 (75-100) mg/dL Calcium 7.7 L (8.4-10.2) mg/dL
[2019-10-25] MEDS: PANTOPRAZOLE 40 MG TAB PO SCH (10:30)
[2019-10-25] MEDS: METOPROLOL TARTRATE 50 MG TAB PO SCH ×2 (10:30→21:10)
[2019-10-25 13:20] LABS: Patient Weight,Urine 108.2 lbs
--- NOTE | 2019-10-25 13:31 | Progress Note ---
Assessment and Plan Assessment: Acute renal failure, possible ischemic ATN from low BP, also possible TTP/HUS Sepsis Afib with RVR Hypotension Thrombocytopenia Hypokalemia, Resolved Plan: Renal labs reviewed. Serum creatinine 2.7 today, yesterday's was 2.3, UOP 350 ml Creatinine clearance noted to be 11 ml/min Will consult vascular surgeon for removal of vasc cath and perm-cath placement Hemodialysis tomorrow for clearance mainly ARABELLA, ANCA, SPEP, C3, C4, Anti-GBM, SPEP, urine eosinophils-negative Secondary GN work up was negative except for HBVsag and RPR, ID is following [id number] Replete potassium as needed Strict I&O monitoring Obtain daily weights Renally dose medications Avoid nephrotoxic agents Monitor electrolytes and renal function closely Consulted CM (spoke to Merary today) for outpatient HD placement arrangement to [facility] [place] Subjective Date of service: 10/25/19 Principal diagnosis: Metabolic Encephalopathy Interval history: No new events noted. No family at bedside. Objective - Vital Signs Vital signs: Vital Signs - 12hr 10/25/19 10/25/19 10/25/19 04:00 06:10 08:15 Temperature 97.8 F 97.3 F L Pulse Rate 64 64 41 L Pulse Rate [ Right Posterior Tibial] Respiratory 18 16 Rate Blood Pressure 112/61 127/75 Blood Pressure 112/61 [Right] O2 Sat by Pulse 97 100 Oximetry 10/25/19 10/25/19 10/25/19 08:16 10:00 10:30 Temperature 97.3 F L Pulse Rate 69 66 66 Pulse Rate [ 66 Right Posterior Tibial] Respiratory 16 Rate Blood Pressure Blood Pressure [Right] O2 Sat by Pulse 98 96 Oximetry 10/25/19 11:44 Temperature 97.8 F Pulse Rate 76 Pulse Rate [ Right Posterior Tibial] Respiratory 20 Rate Blood Pressure 121/62 Blood Pressure [Right] O2 Sat by Pulse 96 Oximetry - General Appearance General appearance: well-developed, appears stated age, fatigue EENT: ATNC, PERRL Neck: no JVD, supple Respiratory: Present: Decreased Breath Sounds Cardiology: S1S2 Gastrointestinal: normoactive bowel sounds Integumentary: warm and dry Neurologic: other (Awake and alert, does not speak [place]) Musculoskeletal: other (No edema) - Lab 10/25/19 05:17 10/25/19 05:17 Most recent lab results Calcium 7.7 mg/dL (8.4-10.2) L 10/25/19 05:17 Phosphorus 4.40 mg/dL (2.5-4.5) D 10/25/19 05:17 Magnesium 1.80 mg/dL (1.7-2.3) 10/24/19 08:36 Urine Creatinine 69.2 mg/dL (0.1-20.0) H 10/24/19 22:00 Medications & Allergies - Medications Allergies/Adverse Reactions: Allergies No Known Allergies Allergy (Unverified 10/10/19 21:31) Home Medications: Home Medications Medication Instructions Recorded Confirmed Last Taken Type Metoprolol 50 mg PO BID 10/10/19 10/18/19 Unknown History Active Medications: Generic Name Dose Route Start Last Admin Trade Name Freq PRN Reason Stop Dose Admin Acetaminophen 650 mg 10/11/19 02:03 Tylenol PO Q4H PRN Pain MILD(1-3)/Fever >100.5/ANNE Hydralazine HCl 5 mg 10/11/19 08:00 Apresoline IV Q30MIN PRN Hypertension Hydralazine HCl 25 mg 10/21/19 15:00 10/25/19 06:10 Apresoline PO 25 mg Q8HR NETO Administration Dextrose 1,000 mls @ 50 mls/hr 10/16/19 10:00 10/25/19 06:10 D5w IV 125 mls/hr DIRECT NETO Administration Sodium Chloride 100 mls @ 999 mls/hr 10/23/19 12:00 Nacl 0.9% IV EMILIE PRN Hypotension Isosorbide Dinitrate/Hydralazine 1 each 10/13/19 14:00 10/25/19 06:10 Bidil 20/37.5mg PO 1 each Q8HR NETO Administration Labetalol HCl 10 mg 10/11/19 13:00 10/18/19 04:10 Labetalol IV 10 mg Q4H PRN Administration Hypertension Metoprolol Tartrate 50 mg 10/11/19 10:00 10/25/19 10:30 Metoprolol PO 50 mg BID NETO Administration Ondansetron HCl 4 mg 10/11/19 02:03 Zofran IV Q8H PRN Nausea And Vomiting Pantoprazole Sodium 40 mg 10/24/19 10:00 10/25/19 10:30 Protonix PO 40 mg DAILY NETO Administration Sodium Chloride 10 ml 10/11/19 10:00 10/25/19 10:30 Sodium Chloride Flush Syringe 10 Ml IV Not Given BID NETO Sodium Chloride 10 ml 10/11/19 02:03 Sodium Chloride Flush Syringe 10 Ml IV PRN PRN LINE FLUSH
[2019-10-25] MEDS ORDERED: SIMPLE SYRUP 15 ML FEEDTUBE PRN ×2 (14:06)
[2019-10-25] MEDS ORDERED: SODIUM BICARBONATE 325 MG TAB FEEDTUBE PRN (14:06)
[2019-10-25] MEDS ORDERED: LIPASE 10,500/PROTEASE 25,000/AMYLASE 43,750 (UNITS) DR CAP FEEDTUBE PRN (14:06)
--- NOTE | 2019-10-26 05:29 | XRay Report ---
CHEST 1 VIEW INDICATION / CLINICAL INFORMATION: CONFIRM Dobbhoff placement. COMPARISON: 10/22/2019 FINDINGS: SUPPORT DEVICES: Central venous line is unchanged. Feeding tube tip projects the level the proximal s tomach. HEART / MEDIASTINUM: Unchanged LUNGS / PLEURA: The lungs appear unchanged. No pneumothorax. ADDITIONAL FINDINGS: No significant additional findings. IMPRESSION: 1. The tip of the feeding tube is in the proximal stomach. Lungs are unchanged in appearance Signer Name: Korey Murillo MD Signed: 10/26/2019 5:25 AM Workstation Name: [id number]
[2019-10-26] MEDS: ISOSORB DINIT/HYDRALAZINE 20-37.5MG TAB PO SCH ×3 (06:28→21:53)
[2019-10-26] MEDS: hydrALAZINE 25 MG TAB PO SCH ×3 (06:28→21:53)
--- NOTE | 2019-10-26 09:57 | Progress Note ---
Assessment and Plan Acute renal failure, possible ischemic ATN from low BP, also possible TTP/HUS Sepsis Afib with RVR Hypotension Thrombocytopenia Hypokalemia, Resolved Plan: Creatinine clearance noted to be 11 ml/min pending permcath per vascular surgery Hemodialysis today for clearance mainly ARABELLA, ANCA, SPEP, C3, C4, Anti-GBM, SPEP, urine eosinophils-negative Secondary GN work up was negative except for HBVsag and RPR, ID is following [id number] Strict I&O monitoring Obtain daily weights Renally dose medications Avoid nephrotoxic agents Monitor electrolytes and renal function closely Consulted CM (spoke to Merary today) for outpatient HD placement arrangement to [facility] Subjective Date of service: 10/26/19 Principal diagnosis: Metabolic Encephalopathy Interval history: no overnight events. Objective - Vital Signs Vital signs: Vital Signs - 12hr 10/25/19 10/25/19 10/26/19 22:00 23:02 03:36 Temperature 97.5 F L 97.3 F L Pulse Rate 73 73 67 Respiratory 16 16 Rate Blood Pressure 134/53 129/87 O2 Sat by Pulse 95 100 99 Oximetry 10/26/19 10/26/19 06:28 07:53 Temperature 97.4 F L Pulse Rate 67 49 L Respiratory 17 Rate Blood Pressure 129/87 105/56 O2 Sat by Pulse 85 Oximetry - Lab 10/25/19 05:17 10/26/19 06:06 Most recent lab results Calcium 8.0 mg/dL (8.4-10.2) L 10/26/19 06:06 Phosphorus 4.40 mg/dL (2.5-4.5) D 10/25/19 05:17 Magnesium 1.80 mg/dL (1.7-2.3) 10/24/19 08:36 Urine Creatinine 69.2 mg/dL (0.1-20.0) H 10/24/19 22:00 Medications & Allergies - Medications Allergies/Adverse Reactions: Allergies No Known Allergies Allergy (Unverified 10/10/19 21:31) Home Medications: Home Medications Medication Instructions Recorded Confirmed Last Taken Type Metoprolol 50 mg PO BID 10/10/19 10/18/19 Unknown History Active Medications: Generic Name Dose Route Start Last Admin Trade Name Freq PRN Reason Stop Dose Admin Acetaminophen 650 mg 10/11/19 02:03 Tylenol PO Q4H PRN Pain MILD(1-3)/Fever >100.5/ANNE Lipase/Protease/Amylase 1 each 10/25/19 14:06 Airam Nuñez 10,500 Unit FEEDTUBE PRN PRN For Clogged Feeding Tube Hydralazine HCl 5 mg 10/11/19 08:00 Apresoline IV Q30MIN PRN Hypertension Hydralazine HCl 25 mg 10/21/19 15:00 10/26/19 06:28 Apresoline PO 25 mg Q8HR NETO Administration Dextrose 1,000 mls @ 50 mls/hr 10/16/19 10:00 10/25/19 06:10 D5w IV 125 mls/hr DIRECT NETO Administration Sodium Chloride 100 mls @ 999 mls/hr 10/23/19 12:00 Nacl 0.9% IV EMILIE PRN Hypotension Isosorbide Dinitrate/Hydralazine 1 each 10/13/19 14:00 10/26/19 06:28 Bidil 20/37.5mg PO 1 each Q8HR NETO Administration Labetalol HCl 10 mg 10/11/19 13:00 10/18/19 04:10 Labetalol IV 10 mg Q4H PRN Administration Hypertension Metoprolol Tartrate 50 mg 10/11/19 10:00 10/25/19 21:10 Metoprolol PO 50 mg BID NETO Administration Ondansetron HCl 4 mg 10/11/19 02:03 Zofran IV Q8H PRN Nausea And Vomiting Pantoprazole Sodium 40 mg 10/24/19 10:00 10/25/19 10:30 Protonix PO 40 mg DAILY NETO Administration Simple Syrup 15 ml 10/25/19 14:06 Simple Syrup FEEDTUBE PRN PRN Hypoglycemia Simple Syrup 30 ml 10/25/19 14:06 Simple Syrup FEEDTUBE PRN PRN Hypoglycemia Sodium Bicarbonate 325 mg 10/25/19 14:06 Sodium Bicarbonate FEEDTUBE PRN PRN For Clogged Feeding Tube Sodium Chloride 10 ml 10/11/19 10:00 10/25/19 21:11 Sodium Chloride Flush Syringe 10 Ml IV 10 ml BID NETO Administration Sodium Chloride 10 ml 10/11/19 02:03 Sodium Chloride Flush Syringe 10 Ml IV PRN PRN LINE FLUSH
[2019-10-26] MEDS: METOPROLOL TARTRATE 50 MG TAB PO SCH ×2 (10:05→21:53)
[2019-10-26] MEDS: PANTOPRAZOLE 40 MG TAB PO SCH (10:05)
--- NOTE | 2019-10-26 10:18 | Progress Note ---
Assessment and Plan Assessment and plan: Toxic metabolic encephalopathy. Treat underlying causes SIRS No obvious infection Chest x-ray negative, CT of the abdomen showed some mild nonspecific inflammation near the distal aorta. ID following A. fib with RVR, status post conversion DC heparin drip, patient thrombocytopenic cardiology following Acute metabolic encephalopathy altered mental status,confusion Anemia. Type and cross and transfuse 2 units PRBCs. Melena. GI consulted Chronic hepatitis B. hepatitis B surface antigen positive. LFTs not elevated. Hypertension uncontrolled Start IV hydralazine, Nitropaste, monitor PRIMO due to ATN Nephrology following Hypernatremia Nephrology following Hypokalemia replace as needed Thrombocytopenia hematology following hedis manager for possible placement DVT prophylaxis with SCDs only because of low platelets 10/15/19 patient with acute kidney injury due to ATN. Slight improvement. Cr 3.[address] Oliveira, hematology for low plaletels but he says he does not work here anymore. called and updated daughter on [phone] 10/16/19 patient presented with alterd mental status,nausea,vomiting. Found to have PRIMO due to ATN, thrombocytopenia. Cr worsening. Discussed with Nephrology yesterday. Plan to initiate dialysis if he gets worse. labs show Syphilis IgG antibody positive. ID to evaluate. 10/17/2019. Follow-up hepatitis B PCR. Check MRI of brain. Follow-up RPR with titer to determine active syphilis. 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 If mental status does not improve consider LP. 10/18/2019. Neurology evaluated the patient and diagnosed with metabolic encephalopathy with etiology likely secondary to hypertensive urgency, A-fib w/ RVR, ARF requiring HD, SIRS, hypernatremia, lactic acidosis, and leukocytosis. ID team investigating for possible syphilis. As patient was not found to have an infectious source as of yet, agree with ID that MRI brain would aid in further investigating potential of meningo-encephalitis, and to rule out any intracranial pathology contributing to current mental status. If patient's mental status does not continue to improve as metabolic/infectious abnormalities are corrected, then will consider LP/CSF studies. 10/19/2019. Neurology evaluated the patient and diagnosed with metabolic encephalopathy with etiology likely secondary to hypertensive urgency, A-fib w/ RVR, ARF requiring HD, SIRS, hypernatremia, lactic acidosis, and leukocytosis. CT head: Lt. frontal white matter hypodensity, age indeterminant. MRI Brain: right temporal area of diffusion restriction, which may be T2 shine-through vs. post-ictal change vs. encephalitis. Unlikely to be infarct, however can not be completely ruled out, given patient has A-fib. Echo: EF 35-40%, LA severely dilated. EEG pending. 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 Follow-up lumbar puncture. 10/20/19. ?meningitis ?neurosyphilis. ID to rule out neurosyphilis, HSV encephalitis. MRI brain shows small area of diffusion signal abnormality in the anterolateral cortex on the right. CSF studies pending. Continue acyclovir 500 mg IV daily per ID. From kidney perspective, the patient cont to be anuric, likely will need permcath placement Wednesday and outpatient dialysis if no improvement in PRIMO, will try to hold HD during the weekend if possible. LDH cont to be elevated, hematology consult is not available, [id number] requested on 10/18. Secondary GN work up was negative except for HBVsag and RPR, ID is following. With regards to atrial fibrillation, patient remains on metoprolol for rate control. Pt has been deemed to be a poor candidate for fdc anticoagulation given overall frailty and thrombocytopenia. 10/21/2019. Patient noted to have anemia this morning and reports of melena per nursing. Patient will receive 2 units PRBCs and follow-up H&H. GI consultation pending. Stop aspirin. Protonix drip. CSF not consistent with meningitis/encephalitis. Acyclovir has been discontinued by ID. Patient with metabolic encephalopathy secondary to renal failure. Patient with acute renal failure likely ischemic ATN from hypotension. Patient continues to be anuric and will likely need PermCath placement Wednesday and outpatient dialysis if no improvement in PRIMO, will try to hold HD during the weekend if possible per nephrology recommendation. Neurology following. 10/22/2019. EGD revealed 1.5 cm duodenal bulb ulcer. Continue to follow H&H and transfuse for hemoglobin less than 7. Patient with metabolic encephalopathy secondary to renal failure. Patient with acute renal failure likely ischemic ATN from hypotension. Patient continues to be anuric and will likely need PermCath placement Wednesday and outpatient dialysis if no improvement in PRIMO. 10/23/2019. EGD revealed 1.5 cm duodenal bulb ulcer. Continue to follow H&H and transfuse for hemoglobin less than 7. Patient with metabolic encephalopathy secondary to renal failure. Patient with acute renal failure likely ischemic ATN from hypotension. Per nephrology, patient continues to be anuric and will likely have PermCath placement today and outpatient dialysis if no improvement in PRIMO. 10/24/2019 Patient is 84 yo with acute kidney injury due to ATN, therefore started on hemodialysis. hedis manager to arrange outpatient dialysis. Patient also had GI bleed. I discussed with Dr. Barth. He recommends Dobhoff tube. I discussed with Nurse,orders placed. 10/25/2019 Patient with acute kidney injury due to ATN, started on hemodialysis. Dobhoff tube placed as recommended by GI Physician. No fever. 10/26/2019 Patient with acute kidney injury due to ATN, started on hemodialysis. Dobhoff tube placed as recommended by GI Physician. Still not eating much. History Interval history: Patient with failure to thrive with afib,presented with nausea, vomiting altered mental status Diagnosed with acute kidney injury, started on dialysis Dobhoff tube placed Hospitalist Physical - Physical exam Narrative exam: GEN: Not in acute distress, malnourished HEENT: Normocephalic, atraumatic, Neck: supple, No JVD Lungs: Clear to auscultation bilaterally, heart;S1 and S2 reg, no murmurs, rubs or gallop Abd:soft, non tender, non distended, normal bowel sounds, Ext: No edema, no clubbing, no cyanosis, Neuro: Awake,alert, confused - Constitutional Vitals: Temp Pulse Resp BP Pulse Ox 97.4 F L 49 L 17 105/56 85 10/26/19 07:53 10/26/19 10:05 10/26/19 07:53 10/26/19 10:05 10/26/19 07:53 General appearance: Present: no acute distress HEART Score - HEART Score Troponin: Troponin T 0.024 ng/mL (0.00-0.029) 10/10/19 21:40 Results - Labs CBC & Chem 7: 10/25/19 05:17 10/26/19 06:06 Labs: Laboratory Last Values WBC 10.5 K/mm3 (4.5-11.0) 10/25/19 05: RBC 2.92 M/mm3 (3.65-5.03) L 10/25/19 05:17 Hgb 9.3 gm/dl (11.8-15.2) L 10/25/19 05:17 Hct 26.9 % (35.5-45.6) L 10/25/19 05:17 MCV 92 fl (84-94) 10/25/19 05:17 MCH 32 pg (28-32) 10/25/19 05:17 MCHC 34 % (32-34) 10/25/19 05:17 RDW 18.9 % (13.2-15.2) H 10/25/19 05:17 Plt Count 123 K/mm3 (140-440) L 10/25/19 05:17 Lymph % (Auto) 9.0 % (13.4-35.0) L 10/23/19 06:52 Blanco % (Auto) 6.5 % (0.0-7.3) 10/23/19 06:52 Eos % (Auto) 0.9 % (0.0-4.3) 10/23/19 06:52 Baso % (Auto) 0.3 % (0.0-1.8) 10/23/19 06:52 Lymph # 1.3 K/mm3 (1.2-5.4) 10/23/19 06:52 Blanco # 0.9 K/mm3 (0.0-0.8) H 10/23/19 06:52 Eos # 0.1 K/mm3 (0.0-0.4) 10/23/19 06:52 Baso # 0.0 K/mm3 (0.0-0.1) 10/23/19 06:52 Add Manual Diff Complete 10/11/19 04:42 Total Counted 100 10/11/19 04:42 Seg Neutrophils % 83.3 % (40.0-70.0) H 10/23/19 06:52 Seg Neuts % (Manual) 93.0 % (40.0-70.0) H 10/11/19 04:42 Band Neutrophils % 1.0 % 10/11/19 04:42 Lymphocytes % (Manual) 2.0 % (13.4-35.0) L 10/11/19 04:42 Reactive Lymphs % (Man) 0 % 10/11/19 04:42 Monocytes % (Manual) 4.0 % (0.0-7.3) 10/11/19 04:42 Eosinophils % (Manual) 0 % (0.0-4.3) 10/11/19 04:42 Basophils % (Manual) 0 % (0.0-1.8) 10/11/19 04:42 Metamyelocytes % 0 % 10/11/19 04:42 Myelocytes % 0 % 10/11/19 04:42 Promyelocytes % 0 % 10/11/19 04:42 Blast Cells % 0 % 10/11/19 04:42 Nucleated RBC % Not Reportable 10/11/19 04:42 Seg Neutrophils # 11.6 K/mm3 (1.8-7.7) H 10/23/19 06:52 Seg Neutrophils # Man 14.8 K/mm3 (1.8-7.7) H 10/11/19 04:42 Band Neutrophils # 0.2 K/mm3 10/11/19 04:42 Lymphocytes # (Manual) 0.3 K/mm3 (1.2-5.4) L 10/11/19 04:42 Abs React Lymphs (Man) 0.0 K/mm3 10/11/19 04:42 Monocytes # (Manual) 0.6 K/mm3 (0.0-0.8) 10/11/19 04:42 Eosinophils # (Manual) 0.0 K/mm3 (0.0-0.4) 10/11/19 04:42 Basophils # (Manual) 0.0 K/mm3 (0.0-0.1) 10/11/19 04:42 Metamyelocytes # 0.0 K/mm3 10/11/19 04:42 Myelocytes # 0.0 K/mm3 10/11/19 04:42 Promyelocytes # 0.0 K/mm3 10/11/19 04:42 Blast Cells # 0.0 K/mm3 10/11/19 04:42 WBC Morphology Not Reportable 10/11/19 04:42 Hypersegmented Neuts Not Reportable 10/11/19 04:42 Hyposegmented Neuts Not Reportable 10/11/19 04:42 Hypogranular Neuts Not Reportable 10/11/19 04:42 Smudge Cells Not Reportable 10/11/19 04:42 Toxic Granulation Not Reportable 10/11/19 04:42 Toxic Vacuolation Not Reportable 10/11/19 04:42 Dohle Bodies Not Reportable 10/11/19 04:42 Pelger-Huet Anomaly Not Reportable 10/11/19 04:42 Glenys Rods Not Reportable 10/11/19 04:42 Platelet Estimate Consistent w auto 10/11/19 04:42 Clumped Platelets Not Reportable 10/11/19 04:42 Plt Clumps, EDTA Not Reportable 10/11/19 04:42 Large Platelets Not Reportable 10/11/19 04:42 Giant Platelets Not Reportable 10/11/19 04:42 Platelet Satelliting Not Reportable 10/11/19 04:42 Plt Morphology Comment Not Reportable 10/11/19 04:42 RBC Morphology Not Reportable 10/11/19 04:42 Dimorphic RBCs Not Reportable 10/11/19 04:42 Polychromasia Not Reportable 10/11/19 04:42 Hypochromasia Not Reportable 10/11/19 04:42 Poikilocytosis Not Reportable 10/11/19 04:42 Anisocytosis Not Reportable 10/11/19 04:42 Microcytosis Not Reportable 10/11/19 04:42 Macrocytosis Not Reportable 10/11/19 04:42 Spherocytes Not Reportable 10/11/19 04:42 Pappenheimer Bodies Not Reportable 10/11/19 04:42 Sickle Cells Not Reportable 10/11/19 04:42 Target Cells Not Reportable 10/11/19 04:42 Tear Drop Cells Not Reportable 10/11/19 04:42 Ovalocytes Not Reportable 10/11/19 04:42 Helmet Cells Not Reportable 10/11/19 04:42 [place] Bodies Not Reportable 10/11/19 04:42 Whitney Rings Not Reportable 10/11/19 04:42 Paula Cells Not Reportable 10/11/19 04:42 Bite Cells Not Reportable 10/11/19 04:42 Crenated Cell Not Reportable 10/11/19 04:42 Elliptocytes Rare 10/11/19 04:42 Acanthocytes (Spur) Not Reportable 10/11/19 04:42 Rouleaux Not Reportable 10/11/19 04:42 Hemoglobin C Crystals Not Reportable 10/11/19 04:42 Schistocytes Not Reportable 10/11/19 04:42 Malaria parasites Not Reportable 10/11/19 04:42 Robin Bodies Not Reportable 10/11/19 04:42 Hem Pathologist Commnt No 10/11/19 04:42 PT 14.7 Sec. (12.2-14.9) 10/19/19 08:00 INR 1.14 (0.87-1.13) H 10/19/19 08:00 APTT 34.3 Sec. (24.2-36.6) 10/19/19 08:00 Sodium 134 mmol/L (137-145) L 10/26/19 06:06 Potassium 3.5 mmol/L (3.6-5.0) L 10/26/19 06:06 Chloride 93.7 mmol/L (98-107) L 10/26/19 06:06 Carbon Dioxide 24 mmol/L (22-30) 10/26/19 06:06 Anion Gap 20 mmol/L 10/26/19 06:06 BUN 51 mg/dL (9-20) H 10/26/19 06:06 Creatinine 2.7 mg/dL (0.8-1.5) H 10/26/19 06:06 Estimated GFR 23 ml/min 10/26/19 06:06 BUN/Creatinine Ratio 19 % 10/26/19 06:06 Glucose 111 mg/dL (75-100) H 10/26/19 06:06 POC Glucose 139 (70-105) H 10/13/19 18:18 Lactic Acid 3.20 mmol/L (0.7-2.0) H* 10/10/19 23:04 Calcium 8.0 mg/dL (8.4-10.2) L 10/26/19 06:06 Phosphorus 4.40 mg/dL (2.5-4.5) D 10/25/19 05:17 Magnesium 1.80 mg/dL (1.7-2.3) 10/24/19 08:36 Total Bilirubin 2.50 mg/dL (0.1-1.2) H 10/10/19 21:40 AST 39 units/L (5-40) 10/10/19 21:40 ALT 22 units/L (7-56) 10/10/19 21:40 Alkaline Phosphatase 102 units/L (35-129) 10/10/19 21:40 Ammonia 54.0 umol/L (25-60) 10/10/19 21:40 Lactate Dehydrogenase 401 units/L (91-180) H 10/19/19 05:22 Total Creatine Kinase 563 units/L (55-170) H 10/14/19 10:56 Troponin T 0.024 ng/mL (0.00-0.029) 10/10/19 21:40 Serum Total Protein 5.4 g/dL (6.1-8.1) L 10/15/19 08:46 Total Protein 7.6 g/dL (6.3-8.2) 10/10/19 21:40 Albumin 2.7 g/dL (3.8-4.8) L 10/15/19 08:46 Albumin/Globulin Ratio 1.2 % 10/10/19 21:40 Zvabx-0-Wdmpswvvg 0.5 g/dL (0.2-0.3) H 10/15/19 08:46 Vkhlk-7-Kqpuhtyqf 0.9 g/dL (0.5-0.9) 10/15/19 08:46 Beta Globulins 0.3 g/dL (0.2-0.5) 10/15/19 08:46 Gamma Globulins 0.7 g/dL (0.8-1.7) L 10/15/19 08:46 Abnorm Protein Band 1 see below 10/15/19 08:46 PEP Interpretation see below H 10/15/19 08:46 TSH 2.550 mlU/mL (0.270-4.200) 10/10/19 21:40 Urine Color Yellow (Yellow) 10/10/19 23:18 Urine Turbidity Clear (Clear) 10/10/19 23:18 Urine pH 6.0 (5.0-7.0) 10/10/19 23:18 Ur Specific [place] 1.015 (1.003-1.030) 10/10/19 23:18 Urine Protein 300 mg/dl mg/dL (Negative) 10/10/19 23:18 Urine Glucose (UA) 50 mg/dL (Negative) 10/10/19 23:18 Urine Ketones Neg mg/dL (Negative) 10/10/19 23:18 Urine Blood Sm (Negative) 10/10/19 23:18 Urine Nitrite Neg (Negative) 10/10/19 23:18 Urine Bilirubin Neg (Negative) 10/10/19 23:18 Urine Urobilinogen < 2.0 mg/dL (<2.0) 10/10/19 23:18 Ur Leukocyte Esterase Neg (Negative) 10/10/19 23:18 Urine WBC (Auto) 1.0 /HPF (0.0-6.0) 10/10/19 23:18 Urine RBC (Auto) 9.0 /HPF (0.0-6.0) 10/10/19 23:18 U Epithel Cells (Auto) < 1.0 /HPF (0-13.0) 10/10/19 23:18 Urine Bacteria (Auto) 1+ /HPF (Negative) 10/10/19 23:18 Hyaline Casts 6 /LPF 10/10/19 23:18 Urine Mucus Few /HPF 10/10/19 23:18 Urine Total Volume 500 ml 10/24/19 22:00 Urine Creatinine 69.2 mg/dL (0.1-20.0) H 10/24/19 22:00 Ur Creatinine 24 Hour 0.3 (0.8-2.8) L 10/24/19 22:00 Height (in) 66.0 inches 10/24/19 22:00 Weight (lb) 108.2 lbs 10/24/19 22:00 Creatinine Clearance 11 10/24/19 22:00 CSF Appearance Clear 10/19/19 14:20 CSF Color Colorless 10/19/19 14:20 CSF WBC 4 /mm3 (1-10) 10/19/19 14:20 CSF RBC 3 /mm3 (0-0) 10/19/19 14:20 CSF Seg Neutrophils 2.0 % (0-6) 10/19/19 14:20 CSF Lymphocytes % 50.0 % (40-80) 10/19/19 14:20 CSF Reactive Lymphs 0 % 10/19/19 14:20 CSF Monocytes % 48.0 % (15-45) 10/19/19 14:20 CSF Eosinophils % 0 % 10/19/19 14:20 CSF Basophils 0 % 10/19/19 14:20 CSF Pathologist Review C 10/19/19 14:20 CSF Glucose 48 mg/dL 10/19/19 14:20 CSF Total Protein 65 mg/dL 10/19/19 14:20 CSF VDRL Nonreactive (Nonreactive) 10/19/19 14:20 ARABELLA Screen Negative (Negative) 10/14/19 10:56 Proteinase 3 (PR3) Ab <1.0 AI (<1.0) 10/14/19 10:56 Myeloperoxidase Ab <1.0 AI (<1.0) 10/14/19 10:56 Complement C3 101 mg/dL () 10/14/19 10:56 Complement C4 43 mg/dL () 10/14/19 10:56 Syphilis IgG Antibody Reactive (NonReactive) A 10/15/19 14:53 RPR Titer 1:2 10/18/19 Unknown Coronavirus (PCR) Negative (Negative) 10/11/19 11:14 Hepatitis A IgM Ab Non-reactive (NonReactive) 10/15/19 20:27 Hep Bs Antigen Reactive (Negative) 10/15/19 20:27 Hep B Core IgM Ab Non-reactive (NonReactive) 10/15/19 20:27 Hepatitis C Antibody Non-reactive (NonReactive) 10/15/19 20:27 HIV 1&2 Antibody Rapid Non react (Non React) 10/14/19 10:56 HIV P24 Antigen Non react (Non React) 10/14/19 10:56 Influenza A (Rapid) Negative (Negative) 10/10/19 22:25 Influenza B (Rapid) Negative (Negative) 10/10/19 22:25 Schistocytes Smear None seen 10/14/19 10:56 Blood Type B POSITIVE 10/21/19 06:38 Antibody Screen Negative 10/21/19 06:38 Crossmatch See Detail 10/21/19 06:38 - Diagnostic Impressions Diagnostic Impressions: Echocardiogram 10/12/19 09:05 Transthoracic Echocardiogram Indication: Afib, HTN BP: 135/78 HR: 115 Conclusions *Global left ventricular systolic function is moderately decreased. *The estimated ejection fraction is 35-40%, but optimal assessment is limited by irregular heart rate. *Mild concentric left ventricular hypertrophy is observed. *The left and right atria are both severely dilated. *There is mild aortic regurgitation. *There is trace-mild mitral regurgitation. *There is moderate tricuspid regurgitation. *There is evidence of mild pulmonary hypertension. *The right ventricular systolic pressure is calculated at 28 mmHg. Findings Left Ventricle: The left ventricular chamber size is mildly dilated. Mild concentric left ventricular hypertrophy is observed. Global left ventricular systolic function is moderately decreased. The estimated ejection fraction is 35-40%. Left Atrium: The left atrium is severely dilated. Right Ventricle: The right ventricle is slightly dilated. Right Atrium: The right atrium is moderate to severely dilated. Aortic Valve: The aortic valve is trileaflet. The aortic valve leaflets are moderately thickened. There is mild aortic regurgitation. There is no evidence of aortic stenosis. Mitral Valve: The mitral valve leaflets are mildly thickened. There is trace of mitral regurgitation. There is no evidence of mitral stenosis. Tricuspid Valve: There is moderate tricuspid regurgitation. The right ventricular systolic pressure is calculated at 28 mmHg. There is evidence of mild pulmonary hypertension. Pulmonic Valve: There is mild pulmonic regurgitation. Pericardium: There is no pericardial effusion. Aorta: There is no dilatation of the aortic root. Venous: The inferior vena cava appears normal in size. Measurements Chambers 2D Name Value Normal Range IVSd (2D) 1.27 cm (0.6 - 1.1) LVPWd (2D) 1.06 cm (0.6 - 1.1) LVIDd (2D) 4.06 cm (3.7 - 5.6) LVIDs (2D) 2.91 cm (2 - 3.8) LV FS (2D) 28.16 % - EF Teichholz (2D) 54.96 % - Ao root diameter (2D) 2.83 cm (2 - 3.7) Volumes/Mass Name Value Normal Range LA ESV SP 4CH (A/L) 74.63 ml - LA ESV SP 2CH (A/L) 67.89 ml - LA ESV BP (A/L) 81.32 ml - LA ESV BP (A/L) index 54.21 ml/m2 - LA ESV SP 4CH (MOD) 65.06 ml - LA ESV SP 2CH (MOD) 65.08 ml - LA ESV BP (MOD) 74.22 ml - LA ESV BP (MOD) index 49.48 ml/m2 - LV EDV SP 4CH (MOD) 46.88 ml - LV ESV SP 4CH (MOD) 14.91 ml - EF SP 4CH (MOD) 68.19 % - LV EDV SP 2CH (MOD) 26.53 ml - LV ESV SP 2CH (MOD) 11.71 ml - EF SP 2CH (MOD) 55.86 % - LV EDV BP 37.95 ml - LV ESV BP 13.85 ml - BP EF (MOD) 63.51 % - Diastolic/Systolic Function Name Value Normal Range MV E-wave Vmax 0.8 m/sec - MV deceleration time 145.29 msec - Aortic Valve Name Value Normal Range AV Vmax 0.79 m/sec - AV VTI 9.87 cm - AV peak gradient 2.5 mmHg - AV mean gradient 0.94 mmHg - LVOT diameter 2.12 cm - LVOT Vmax 0.69 m/sec - LVOT VTI 12.18 cm - LVOT peak gradient 1.93 mmHg - LVOT mean gradient 1.04 mmHg - SV LVOT 42.84 ml - YAMILA (continuity Vmax) 3.08 cm2 - YAMILA (continuity VTI) 4.34 cm2 - AR PHT 498.2 msec - AR peak gradient 55.86 mmHg - Tricuspid Valve Name Value Normal Range TR Vmax 2.52 m/sec - TR peak gradient 25.41 mmHg - RAP 3 mmHg - RVSP 28 mmHg - Pulmonic Valve/Qp:Qs Name Value Normal Range PV Vmax 0.74 m/sec - PV VTI 10.83 cm - PV peak gradient 2.2 mmHg - PV mean gradient 1.08 mmHg - AK end-diastolic Vmax 1.28 m/sec - RVOT Vmax 0.01 m/sec - RVOT VTI 11.04 cm - RVOT peak gradient 2.38 mmHg - Miranda/IV: Voiding Method External Female Catheter IV Catheter Type [Left Upper Peripheral IV arm] IV Catheter Type [Left Hand] Peripheral IV IV Catheter Type [Right VAS Cath Internal Jugular] IV Catheter Type [Left Forearm Peripheral IV ] IV Catheter Type [Right INT / Saline Lock Forearm] Active Medications - Current Medications Current Medications: Generic Name Dose Route Start Last Admin Trade Name Freq PRN Reason Stop Dose Admin Acetaminophen 650 mg 10/11/19 02:03 Tylenol PO Q4H PRN Pain MILD(1-3)/Fever >100.5/ANNE Lipase/Protease/Amylase 1 each 10/25/19 14:06 Pancreaze 10,500 Unit FEEDTUBE PRN PRN For Clogged Feeding Tube Hydralazine HCl 5 mg 10/11/19 08:00 Apresoline IV Q30MIN PRN Hypertension Hydralazine HCl 25 mg 10/21/19 15:00 10/26/19 06:28 Apresoline PO 25 mg Q8HR NETO Administration Dextrose 1,000 mls @ 50 mls/hr 10/16/19 10:00 10/25/19 06:10 D5w IV 125 mls/hr DIRECT NETO Administration Sodium Chloride 100 mls @ 999 mls/hr 10/23/19 12:00 Nacl 0.9% IV EMILIE PRN Hypotension Isosorbide Dinitrate/Hydralazine 1 each 10/13/19 14:00 10/26/19 06:28 Bidil 20/37.5mg PO 1 each Q8HR NETO Administration Labetalol HCl 10 mg 10/11/19 13:00 10/18/19 04:10 Labetalol IV 10 mg Q4H PRN Administration Hypertension Metoprolol Tartrate 50 mg 10/11/19 10:00 10/26/19 10:05 Metoprolol PO Not Given BID NETO Ondansetron HCl 4 mg 10/11/19 02:03 Zofran IV Q8H PRN Nausea And Vomiting Pantoprazole Sodium 40 mg 10/24/19 10:00 10/26/19 10:05 Protonix PO 40 mg DAILY NETO Administration Simple Syrup 15 ml 10/25/19 14:06 Simple Syrup FEEDTUBE PRN PRN Hypoglycemia Simple Syrup 30 ml 10/25/19 14:06 Simple Syrup FEEDTUBE PRN PRN Hypoglycemia Sodium Bicarbonate 325 mg 10/25/19 14:06 Sodium Bicarbonate FEEDTUBE PRN PRN For Clogged Feeding Tube Sodium Chloride 10 ml 10/11/19 10:00 10/26/19 10:07 Sodium Chloride Flush Syringe 10 Ml IV 10 ml BID NETO Administration Sodium Chloride 10 ml 10/11/19 02:03 Sodium Chloride Flush Syringe 10 Ml IV PRN PRN LINE FLUSH Nutrition/Malnutrition Assess - Dietary Evaluation Nutrition/Malnutrition Findings: Nutrition Notes Start: 10/11/19 13:24 Freq: Status: Active Protocol: Document 10/25/19 13:19 LM (Rec: 10/25/19 13:32 LM [email or web address]) Nutrition Notes Initial or Follow up Reassessment Current Diagnosis Acute Kidney Injury, Hypertension Other Pertinent Diagnosis on HD, dehydration, Afib, AMS Current Diet Cardiac pureed Labs/Tests Na 136 BUN 46 Cr 2.7 Pertinent Medications D5w at 50ml/hr Height 5 ft 6 in Weight 49.1 kg [place] Body Weight (kg) 64.54 BMI 17.4 Subjective/Other Information MD consult for TF. Pt with dobhoff. Burn Absent Trauma Absent Current % PO Poor (25-49%) Minimum of two criteria No Energy Intake (non-severe) <75% Estimated Energy Requirement >7 days #1 Nutrition Diagnosis Inadequate oral intake Diagnosis Progress(for reassessment Continues documentation) Is patient on ventilator? No Is Patient Ambulatory and/or Out of Bed No REE-([place]-confined to bed) 1361.880 Kcal/Kg value to use for calculation 35 Approximate Energy Requirements Using 1719 kcal/Kg Calculation Used for Recommendations Kcal/kg Additional Notes Protein: >59g (>1.2g/kg) Fluid: per MD Nutrition Intervention Change Diet Order: TF Nutrition Support: Nepro 1.8 at 40ml/hr Flush 70ml q4h for hyponatrmia Flush 170ml q4h once resolved Kcal 1,728 Protein (gm) 78 Fluid (mL) 698 Goal #1 TF start/tolerance Anticipated Discharge Needs: unable to determine at this time Follow-Up By: 10/27/19 Additional Comments F/U for TF start/tolerance
--- NOTE | 2019-10-26 10:53 | Progress Note ---
Assessment and Plan Atrial fibrillation, persistent on metoprolol for rate control Pt has been deemed to be a poor candidate for care home anticoagulation given overall frailty, thrombocytopenia and severe anemia Acute renal failure -initiated on dialysis Hypertension Dilated Cardiomyopathy, uncertain duration an echo this admission shows atrial enlargement, decreased left ventricular systolic function, ejection fraction 35-40%. Continue medical therapy for dilated cardiomyopathy and rate controlling agents for atrial fibrillation that persists. Otherwise, conservative cardiac management. Subjective Date of service: 10/26/19 Principal diagnosis: Metabolic Encephalopathy Interval history: No interval cardiac changes. Afib with a well controlled ventricular rate on telemetry. Objective Vital Signs Temp Pulse Resp BP Pulse Ox 10/26/19 10:05 49 L 105/56 10/26/19 07:53 97.4 F L 49 L 17 105/56 85 10/26/19 06:28 67 129/87 10/26/19 03:36 97.3 F L 67 16 129/87 99 10/25/19 23:02 97.5 F L 73 16 134/53 100 10/25/19 22:00 73 95 10/25/19 21:10 79 145/66 10/25/19 21:09 79 145/66 10/25/19 19:29 97.5 F L 61 16 152/84 99 10/25/19 16:48 97.0 F L 79 16 145/66 100 10/25/19 11:44 97.8 F 76 20 121/62 96 - Physical Examination General: No Apparent Distress, Cachectic HEENT: Positive: PERRL Neck: Positive: neck supple Cardiac: Positive: irregularly irregular Neuro: Positive: Weakness Extremities: Absent: edema - Labs and Meds Comprehensive Metabolic Panel 10/26/19 Range/Units 06:06 Sodium 134 L (137-145) mmol/L Potassium 3.5 L (3.6-5.0) mmol/L Chloride 93.7 L (98-107) mmol/L Carbon Dioxide 24 (22-30) mmol/L BUN 51 H (9-20) mg/dL Creatinine 2.7 H (0.8-1.5) mg/dL Glucose 111 H (75-100) mg/dL Calcium 8.0 L (8.4-10.2) mg/dL
[2019-10-27] MEDS: hydrALAZINE 25 MG TAB PO SCH ×3 (06:14→22:02)
[2019-10-27] MEDS: ISOSORB DINIT/HYDRALAZINE 20-37.5MG TAB PO SCH ×3 (06:14→22:01)
--- NOTE | 2019-10-27 09:53 | Progress Note ---
Assessment and Plan Atrial fibrillation, persistent on metoprolol for rate control Pt has been deemed to be a poor candidate for fci anticoagulation given overall frailty, thrombocytopenia and severe anemia Acute renal failure -initiated on dialysis Hypertension Dilated Cardiomyopathy, uncertain duration an echo this admission shows atrial enlargement, decreased left ventricular systolic function, ejection fraction 35-40%. Continue medical therapy for dilated cardiomyopathy and rate controlling agents for atrial fibrillation that persists. Otherwise, conservative cardiac management. Subjective Date of service: 10/27/19 Principal diagnosis: Metabolic Encephalopathy Interval history: No interval cardiac changes. Afib with a well controlled ventricular rate on telemetry. Objective Vital Signs Temp Pulse Resp BP Pulse Ox 10/27/19 07:43 97.5 F L 77 18 119/66 100 10/27/19 04:29 97.3 F L 66 16 160/86 98 10/27/19 02:00 59 L 10/27/19 00:02 97.4 F L 61 12 127/54 95 10/26/19 22:00 68 10/26/19 19:47 98.2 F 73 20 122/55 97 10/26/19 17:02 98.0 F 68 17 101/47 100 10/26/19 15:27 68 124/65 10/26/19 15:26 68 124/65 10/26/19 11:57 96.6 F L 68 17 124/65 99 10/26/19 10:05 49 L 105/56 - Physical Examination General: No Apparent Distress, Cachectic HEENT: Positive: PERRL Neck: Positive: neck supple Cardiac: Positive: irregularly irregular Extremities: Absent: edema
[2019-10-27] MEDS: METOPROLOL TARTRATE 50 MG TAB PO SCH ×2 (10:36→22:02)
[2019-10-27] MEDS: PANTOPRAZOLE 40 MG TAB PO SCH (10:37)
--- NOTE | 2019-10-27 10:47 | Progress Note ---
Assessment and Plan Assessment and plan: Toxic metabolic encephalopathy. Treat underlying causes SIRS No obvious infection Chest x-ray negative, CT of the abdomen showed some mild nonspecific inflammation near the distal aorta. ID following A. fib with RVR, status post conversion DC heparin drip, patient thrombocytopenic cardiology following Acute metabolic encephalopathy altered mental status,confusion Anemia. Type and cross and transfuse 2 units PRBCs. Melena. GI consulted Chronic hepatitis B. hepatitis B surface antigen positive. LFTs not elevated. Hypertension uncontrolled Start IV hydralazine, Nitropaste, monitor PRIMO due to ATN Nephrology following Hypernatremia Nephrology following Hypokalemia replace as needed Thrombocytopenia hematology following customer marketing manager for possible placement DVT prophylaxis with SCDs only because of low platelets 10/15/19 patient with acute kidney injury due to ATN. Slight improvement. Cr 3.[address] Oliveira, hematology for low plaletels but he says he does not work here anymore. called and updated daughter on [phone] 10/16/19 patient presented with alterd mental status,nausea,vomiting. Found to have PRIMO due to ATN, thrombocytopenia. Cr worsening. Discussed with Nephrology yesterday. Plan to initiate dialysis if he gets worse. labs show Syphilis IgG antibody positive. ID to evaluate. 10/17/2019. Follow-up hepatitis B PCR. Check MRI of brain. Follow-up RPR with titer to determine active syphilis. 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 If mental status does not improve consider LP. 10/18/2019. Neurology evaluated the patient and diagnosed with metabolic encephalopathy with etiology likely secondary to hypertensive urgency, A-fib w/ RVR, ARF requiring HD, SIRS, hypernatremia, lactic acidosis, and leukocytosis. ID team investigating for possible syphilis. As patient was not found to have an infectious source as of yet, agree with ID that MRI brain would aid in further investigating potential of meningo-encephalitis, and to rule out any intracranial pathology contributing to current mental status. If patient's mental status does not continue to improve as metabolic/infectious abnormalities are corrected, then will consider LP/CSF studies. 10/19/2019. Neurology evaluated the patient and diagnosed with metabolic encephalopathy with etiology likely secondary to hypertensive urgency, A-fib w/ RVR, ARF requiring HD, SIRS, hypernatremia, lactic acidosis, and leukocytosis. CT head: Lt. frontal white matter hypodensity, age indeterminant. MRI Brain: right temporal area of diffusion restriction, which may be T2 shine-through vs. post-ictal change vs. encephalitis. Unlikely to be infarct, however can not be completely ruled out, given patient has A-fib. Echo: EF 35-40%, LA severely dilated. EEG pending. 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 Follow-up lumbar puncture. 10/20/19. ?meningitis ?neurosyphilis. ID to rule out neurosyphilis, HSV encephalitis. MRI brain shows small area of diffusion signal abnormality in the anterolateral cortex on the right. CSF studies pending. Continue acyclovir 500 mg IV daily per ID. From kidney perspective, the patient cont to be anuric, likely will need permcath placement Wednesday and outpatient dialysis if no improvement in PRIMO, will try to hold HD during the weekend if possible. LDH cont to be elevated, hematology consult is not available, [id number] requested on 10/18. Secondary GN work up was negative except for HBVsag and RPR, ID is following. With regards to atrial fibrillation, patient remains on metoprolol for rate control. Pt has been deemed to be a poor candidate for exterminator termite anticoagulation given overall frailty and thrombocytopenia. 10/21/2019. Patient noted to have anemia this morning and reports of melena per nursing. Patient will receive 2 units PRBCs and follow-up H&H. GI consultation pending. Stop aspirin. Protonix drip. CSF not consistent with meningitis/encephalitis. Acyclovir has been discontinued by ID. Patient with metabolic encephalopathy secondary to renal failure. Patient with acute renal failure likely ischemic ATN from hypotension. Patient continues to be anuric and will likely need PermCath placement Wednesday and outpatient dialysis if no improvement in PRIMO, will try to hold HD during the weekend if possible per nephrology recommendation. Neurology following. 10/22/2019. EGD revealed 1.5 cm duodenal bulb ulcer. Continue to follow H&H and transfuse for hemoglobin less than 7. Patient with metabolic encephalopathy secondary to renal failure. Patient with acute renal failure likely ischemic ATN from hypotension. Patient continues to be anuric and will likely need PermCath placement Wednesday and outpatient dialysis if no improvement in PRIMO. 10/23/2019. EGD revealed 1.5 cm duodenal bulb ulcer. Continue to follow H&H and transfuse for hemoglobin less than 7. Patient with metabolic encephalopathy secondary to renal failure. Patient with acute renal failure likely ischemic ATN from hypotension. Per nephrology, patient continues to be anuric and will likely have PermCath placement today and outpatient dialysis if no improvement in PRIMO. 10/24/2019 Patient is 84 yo with acute kidney injury due to ATN, therefore started on hemodialysis. customer marketing manager to arrange outpatient dialysis. Patient also had GI bleed. I discussed with Dr. Barth. He recommends Dobhoff tube. I discussed with Nurse,orders placed. 10/25/2019 Patient with acute kidney injury due to ATN, started on hemodialysis. Dobhoff tube placed as recommended by GI Physician. No fever. 10/26/2019 Patient with acute kidney injury due to ATN, started on hemodialysis. Dobhoff tube placed as recommended by GI Physician. Still not eating much. 10/26/2019 Patient with acute kidney injury due to ATN, started on hemodialysis. Dobhoff tube placed as recommended by GI Physician. Still not eating much. I discussed with Dr. Barth,GI. Patient will need PEG. I called son, did not answer. Will call again later today. History Interval history: Patient with failure to thrive with afib,presented with nausea, vomiting altered mental status Diagnosed with acute kidney injury, started on dialysis Dobhoff tube placed Hospitalist Physical - Physical exam Narrative exam: GEN: Not in acute distress, malnourished HEENT: Normocephalic, atraumatic, Neck: supple, No JVD Lungs: Clear to auscultation bilaterally, heart;S1 and S2 reg, no murmurs, rubs or gallop Abd:soft, non tender, non distended, normal bowel sounds, Ext: No edema, no clubbing, no cyanosis, Neuro: Awake,alert, confused - Constitutional Vitals: Temp Pulse Resp BP Pulse Ox 97.5 F L 77 18 119/66 100 10/27/19 07:43 10/27/19 10:36 10/27/19 07:43 10/27/19 10:36 10/27/19 07:43 General appearance: Present: no acute distress HEART Score - HEART Score Troponin: Troponin T 0.024 ng/mL (0.00-0.029) 10/10/19 21:40 Results - Labs CBC & Chem 7: 10/25/19 05:17 10/26/19 06:06 Labs: Laboratory Last Values WBC 10.5 K/mm3 (4.5-11.0) 10/25/19 05:17 RBC 2.92 M/mm3 (3.65-5.03) L 10/25/19 05:17 Hgb 9.3 gm/dl (11.8-15.2) L 10/25/19 05:17 Hct 26.9 % (35.5-45.6) L 10/25/19 05:17 MCV 92 fl (84-94) 10/25/19 05:17 MCH 32 pg (28-32) 10/25/19 05:17 MCHC 34 % (32-34) 10/25/19 05:17 RDW 18.9 % (13.2-15.2) H 10/25/19 05:17 Plt Count 123 K/mm3 (140-440) L 10/25/19 05:17 Lymph % (Auto) 9.0 % (13.4-35.0) L 10/23/19 06:52 [place] % (Auto) 6.5 % (0.0-7.3) 10/23/19 06:52 Eos % (Auto) 0.9 % (0.0-4.3) 10/23/19 06:52 Baso % (Auto) 0.3 % (0.0-1.8) 10/23/19 06:52 Lymph # 1.3 K/mm3 (1.2-5.4) 10/23/19 06:52 [place] # 0.9 K/mm3 (0.0-0.8) H 10/23/19 06:52 Eos # 0.1 K/mm3 (0.0-0.4) 10/23/19 06:52 Baso # 0.0 K/mm3 (0.0-0.1) 10/23/19 06:52 Add Manual Diff Complete 10/11/19 04:42 Total Counted 100 10/11/19 04:42 Seg Neutrophils % 83.3 % (40.0-70.0) H 10/23/19 06:52 Seg Neuts % (Manual) 93.0 % (40.0-70.0) H 10/11/19 04:42 Band Neutrophils % 1.0 % 10/11/19 04:42 Lymphocytes % (Manual) 2.0 % (13.4-35.0) L 10/11/19 04:42 Reactive Lymphs % (Man) 0 % 10/11/19 04:42 Monocytes % (Manual) 4.0 % (0.0-7.3) 10/11/19 04:42 Eosinophils % (Manual) 0 % (0.0-4.3) 10/11/19 04:42 Basophils % (Manual) 0 % (0.0-1.8) 10/11/19 04:42 Metamyelocytes % 0 % 10/11/19 04:42 Myelocytes % 0 % 10/11/19 04:42 Promyelocytes % 0 % 10/11/19 04:42 Blast Cells % 0 % 10/11/19 04:42 Nucleated RBC % Not Reportable 10/11/19 04:42 Seg Neutrophils # 11.6 K/mm3 (1.8-7.7) H 10/23/19 06:52 Seg Neutrophils # Man 14.8 K/mm3 (1.8-7.7) H 10/11/19 04:42 Band Neutrophils # 0.2 K/mm3 10/11/19 04:42 Lymphocytes # (Manual) 0.3 K/mm3 (1.2-5.4) L 10/11/19 04:42 Abs React Lymphs (Man) 0.0 K/mm3 10/11/19 04:42 Monocytes # (Manual) 0.6 K/mm3 (0.0-0.8) 10/11/19 04:42 Eosinophils # (Manual) 0.0 K/mm3 (0.0-0.4) 10/11/19 04:42 Basophils # (Manual) 0.0 K/mm3 (0.0-0.1) 10/11/19 04:42 Metamyelocytes # 0.0 K/mm3 10/11/19 04:42 Myelocytes # 0.0 K/mm3 10/11/19 04:42 Promyelocytes # 0.0 K/mm3 10/11/19 04:42 Blast Cells # 0.0 K/mm3 10/11/19 04:42 WBC Morphology Not Reportable 10/11/19 04:42 Hypersegmented Neuts Not Reportable 10/11/19 04:42 Hyposegmented Neuts Not Reportable 10/11/19 04:42 Hypogranular Neuts Not Reportable 10/11/19 04:42 Smudge Cells Not Reportable 10/11/19 04:42 Toxic Granulation Not Reportable 10/11/19 04:42 Toxic Vacuolation Not Reportable 10/11/19 04:42 Dohle Bodies Not Reportable 10/11/19 04:42 Pelger-Huet Anomaly Not Reportable 10/11/19 04:42 Glenys Rods Not Reportable 10/11/19 04:42 Platelet Estimate Consistent w auto 10/11/19 04:42 Clumped Platelets Not Reportable 10/11/19 04:42 Plt Clumps, EDTA Not Reportable 10/11/19 04:42 Large Platelets Not Reportable 10/11/19 04:42 Giant Platelets Not Reportable 10/11/19 04:42 Platelet Satelliting Not Reportable 10/11/19 04:42 Plt Morphology Comment Not Reportable 10/11/19 04:42 RBC Morphology Not Reportable 10/11/19 04:42 Dimorphic RBCs Not Reportable 10/11/19 04:42 Polychromasia Not Reportable 10/11/19 04:42 Hypochromasia Not Reportable 10/11/19 04:42 Poikilocytosis Not Reportable 10/11/19 04:42 Anisocytosis Not Reportable 10/11/19 04:42 Microcytosis Not Reportable 10/11/19 04:42 Macrocytosis Not Reportable 10/11/19 04:42 Spherocytes Not Reportable 10/11/19 04:42 Pappenheimer Bodies Not Reportable 10/11/19 04:42 Sickle Cells Not Reportable 10/11/19 04:42 Target Cells Not Reportable 10/11/19 04:42 Tear Drop Cells Not Reportable 10/11/19 04:42 Ovalocytes Not Reportable 10/11/19 04:42 Helmet Cells Not Reportable 10/11/19 04:42 [place] Bodies Not Reportable 10/11/19 04:42 [place] Rings Not Reportable 10/11/19 04:42 Deer Cells Not Reportable 10/11/19 04:42 Bite Cells Not Reportable 10/11/19 04:42 Crenated Cell Not Reportable 10/11/19 04:42 Elliptocytes Rare 10/11/19 04:42 Acanthocytes (Spur) Not Reportable 10/11/19 04:42 Rouleaux Not Reportable 10/11/19 04:42 Hemoglobin C Crystals Not Reportable 10/11/19 04:42 Schistocytes Not Reportable 10/11/19 04:42 Malaria parasites Not Reportable 10/11/19 04:42 Robin Bodies Not Reportable 10/11/19 04:42 Hem Pathologist Commnt No 10/11/19 04:42 PT 14.7 Sec. (12.2-14.9) 10/19/19 08:00 INR 1.14 (0.87-1.13) H 10/19/19 08:00 APTT 34.3 Sec. (24.2-36.6) 10/19/19 08:00 Sodium 134 mmol/L (137-145) L 10/26/19 06:06 Potassium 3.5 mmol/L (3.6-5.0) L 10/26/19 06:06 Chloride 93.7 mmol/L (98-107) L 10/26/19 06:06 Carbon Dioxide 24 mmol/L (22-30) 10/26/19 06:06 Anion Gap 20 mmol/L 10/26/19 06:06 BUN 51 mg/dL (9-20) H 10/26/19 06:06 Creatinine 2.7 mg/dL (0.8-1.5) H 10/26/19 06:06 Estimated GFR 23 ml/min 10/26/19 06:06 BUN/Creatinine Ratio 19 % 10/26/19 06:06 Glucose 111 mg/dL (75-100) H 10/26/19 06:06 POC Glucose 148 (70-105) H 10/27/19 08:00 Lactic Acid 3.20 mmol/L (0.7-2.0) H* 10/10/19 23:04 Calcium 8.0 mg/dL (8.4-10.2) L 10/26/19 06:06 Phosphorus 4.40 mg/dL (2.5-4.5) D 10/25/19 05:17 Magnesium 1.80 mg/dL (1.7-2.3) 10/24/19 08:36 Total Bilirubin 2.50 mg/dL (0.1-1.2) H 10/10/19 21:40 AST 39 units/L (5-40) 10/10/19 21:40 ALT 22 units/L (7-56) 10/10/19 21:40 Alkaline Phosphatase 102 units/L (35-129) 10/10/19 21:40 Ammonia 54.0 umol/L (25-60) 10/10/19 21:40 Lactate Dehydrogenase 401 units/L (91-180) H 10/19/19 05:22 Total Creatine Kinase 563 units/L (55-170) H 10/14/19 10:56 Troponin T 0.024 ng/mL (0.00-0.029) 10/10/19 21:40 Serum Total Protein 5.4 g/dL (6.1-8.1) L 10/15/19 08:46 Total Protein 7.6 g/dL (6.3-8.2) 10/10/19 21:40 Albumin 2.7 g/dL (3.8-4.8) L 10/15/19 08:46 Albumin/Globulin Ratio 1.2 % 10/10/19 21:40 Zodlf-7-Udolzkfiv 0.5 g/dL (0.2-0.3) H 10/15/19 08:46 Afrgk-5-Zsohajjuj 0.9 g/dL (0.5-0.9) 10/15/19 08:46 Beta Globulins 0.3 g/dL (0.2-0.5) 10/15/19 08:46 Gamma Globulins 0.7 g/dL (0.8-1.7) L 10/15/19 08:46 Abnorm Protein Band 1 see below 10/15/19 08:46 PEP Interpretation see below H 10/15/19 08:46 TSH 2.550 mlU/mL (0.270-4.200) 10/10/19 21:40 Urine Color Yellow (Yellow) 10/10/19 23:18 Urine Turbidity Clear (Clear) 10/10/19 23:18 Urine pH 6.0 (5.0-7.0) 10/10/19 23:18 Ur Specific [place] 1.015 (1.003-1.030) 10/10/19 23:18 Urine Protein 300 mg/dl mg/dL (Negative) 10/10/19 23:18 Urine Glucose (UA) 50 mg/dL (Negative) 10/10/19 23:18 Urine Ketones Neg mg/dL (Negative) 10/10/19 23:18 Urine Blood Sm (Negative) 10/10/19 23:18 Urine Nitrite Neg (Negative) 10/10/19 23:18 Urine Bilirubin Neg (Negative) 10/10/19 23:18 Urine Urobilinogen < 2.0 mg/dL (<2.0) 10/10/19 23:18 Ur Leukocyte Esterase Neg (Negative) 10/10/19 23:18 Urine WBC (Auto) 1.0 /HPF (0.0-6.0) 10/10/19 23:18 Urine RBC (Auto) 9.0 /HPF (0.0-6.0) 10/10/19 23:18 U Epithel Cells (Auto) < 1.0 /HPF (0-13.0) 10/10/19 23:18 Urine Bacteria (Auto) 1+ /HPF (Negative) 10/10/19 23:18 Hyaline Casts 6 /LPF 10/10/19 23:18 Urine Mucus Few /HPF 10/10/19 23:18 Urine Total Volume 500 ml 10/24/19 22:00 Urine Creatinine 69.2 mg/dL (0.1-20.0) H 10/24/19 22:00 Ur Creatinine 24 Hour 0.3 (0.8-2.8) L 10/24/19 22:00 Height (in) 66.0 inches 10/24/19 22:00 Weight (lb) 108.2 lbs 10/24/19 22:00 Creatinine Clearance 11 10/24/19 22:00 CSF Appearance Clear 10/19/19 14:20 CSF Color Colorless 10/19/19 14:20 CSF WBC 4 /mm3 (1-10) 10/19/19 14:20 CSF RBC 3 /mm3 (0-0) 10/19/19 14: CSF Seg Neutrophils 2.0 % (0-6) 10/19/19 14:20 CSF Lymphocytes % 50.0 % (40-80) 10/19/19 14:20 CSF Reactive Lymphs 0 % 10/19/19 14:20 CSF Monocytes % 48.0 % (15-45) 10/19/19 14:20 CSF Eosinophils % 0 % 10/19/19 14:20 CSF Basophils 0 % 10/19/19 14:20 CSF Pathologist Review C 10/19/19 14:20 CSF Glucose 48 mg/dL 10/19/19 14:20 CSF Total Protein 65 mg/dL 10/19/19 14:20 CSF VDRL Nonreactive (Nonreactive) 10/19/19 14:20 ARABELLA Screen Negative (Negative) 10/14/19 10:56 Proteinase 3 (PR3) Ab <1.0 AI (<1.0) 10/14/19 10:56 Myeloperoxidase Ab <1.0 AI (<1.0) 10/14/19 10:56 Complement C3 101 mg/dL () 10/14/19 10:56 Complement C4 43 mg/dL () 10/14/19 10:56 Syphilis IgG Antibody Reactive (NonReactive) A 10/15/19 14:53 RPR Titer 1:2 10/18/19 Unknown Coronavirus (PCR) Negative (Negative) 10/11/19 11:14 Hepatitis A IgM Ab Non-reactive (NonReactive) 10/15/19 20:27 Hep Bs Antigen Reactive (Negative) 10/15/19 20:27 Hep B Core IgM Ab Non-reactive (NonReactive) 10/15/19 20:27 Hepatitis C Antibody Non-reactive (NonReactive) 10/15/19 20:27 HIV 1&2 Antibody Rapid Non react (Non React) 10/14/19 10:56 HIV P24 Antigen Non react (Non React) 10/14/19 10:56 Influenza A (Rapid) Negative (Negative) 10/10/19 22:25 Influenza B (Rapid) Negative (Negative) 10/10/19 22:25 Schistocytes Smear None seen 10/14/19 10:56 Blood Type B POSITIVE 10/21/19 06:38 Antibody Screen Negative 10/21/19 06:38 Crossmatch See Detail 10/21/19 06:38 - Diagnostic Impressions Diagnostic Impressions: Echocardiogram 10/12/19 09:05 Transthoracic Echocardiogram Indication: Afib, HTN BP: 135/78 HR: 115 Conclusions *Global left ventricular systolic function is moderately decreased. *The estimated ejection fraction is 35-40%, but optimal assessment is limited by irregular heart rate. *Mild concentric left ventricular hypertrophy is observed. *The left and right atria are both severely dilated. *There is mild aortic regurgitation. *There is trace-mild mitral regurgitation. *There is moderate tricuspid regurgitation. *There is evidence of mild pulmonary hypertension. *The right ventricular systolic pressure is calculated at 28 mmHg. Findings Left Ventricle: The left ventricular chamber size is mildly dilated. Mild concentric left ventricular hypertrophy is observed. Global left ventricular systolic function is moderately decreased. The estimated ejection fraction is 35-40%. Left Atrium: The left atrium is severely dilated. Right Ventricle: The right ventricle is slightly dilated. Right Atrium: The right atrium is moderate to severely dilated. Aortic Valve: The aortic valve is trileaflet. The aortic valve leaflets are moderately thickened. There is mild aortic regurgitation. There is no evidence of aortic stenosis. Mitral Valve: The mitral valve leaflets are mildly thickened. There is trace of mitral regurgitation. There is no evidence of mitral stenosis. Tricuspid Valve: There is moderate tricuspid regurgitation. The right ventricular systolic pressure is calculated at 28 mmHg. There is evidence of mild pulmonary hypertension. Pulmonic Valve: There is mild pulmonic regurgitation. Pericardium: There is no pericardial effusion. Aorta: There is no dilatation of the aortic root. Venous: The inferior vena cava appears normal in size. Measurements Chambers 2D Name Value Normal Range IVSd (2D) 1.27 cm (0.6 - 1.1) LVPWd (2D) 1.06 cm (0.6 - 1.1) LVIDd (2D) 4.06 cm (3.7 - 5.6) LVIDs (2D) 2.91 cm (2 - 3.8) LV FS (2D) 28.16 % - EF Teichholz (2D) 54.96 % - Ao root diameter (2D) 2.83 cm (2 - 3.7) Volumes/Mass Name Value Normal Range LA ESV SP 4CH (A/L) 74.63 ml - LA ESV SP 2CH (A/L) 67.89 ml - LA ESV BP (A/L) 81.32 ml - LA ESV BP (A/L) index 54.21 ml/m2 - LA ESV SP 4CH (MOD) 65.06 ml - LA ESV SP 2CH (MOD) 65.08 ml - LA ESV BP (MOD) 74.22 ml - LA ESV BP (MOD) index 49.48 ml/m2 - LV EDV SP 4CH (MOD) 46.88 ml - LV ESV SP 4CH (MOD) 14.91 ml - EF SP 4CH (MOD) 68.19 % - LV EDV SP 2CH (MOD) 26.53 ml - LV ESV SP 2CH (MOD) 11.71 ml - EF SP 2CH (MOD) 55.86 % - LV EDV BP 37.95 ml - LV ESV BP 13.85 ml - BP EF (MOD) 63.51 % - Diastolic/Systolic Function Name Value Normal Range MV E-wave Vmax 0.8 m/sec - MV deceleration time 145.29 msec - Aortic Valve Name Value Normal Range AV Vmax 0.79 m/sec - AV VTI 9.87 cm - AV peak gradient 2.5 mmHg - AV mean gradient 0.94 mmHg - LVOT diameter 2.12 cm - LVOT Vmax 0.69 m/sec - LVOT VTI 12.18 cm - LVOT peak gradient 1.93 mmHg - LVOT mean gradient 1.04 mmHg - SV LVOT 42.84 ml - YAMILA (continuity Vmax) 3.08 cm2 - YAMILA (continuity VTI) 4.34 cm2 - AR PHT 498.2 msec - AR peak gradient 55.86 mmHg - Tricuspid Valve Name Value Normal Range TR Vmax 2.52 m/sec - TR peak gradient 25.41 mmHg - RAP 3 mmHg - RVSP 28 mmHg - Pulmonic Valve/Qp:Qs Name Value Normal Range PV Vmax 0.74 m/sec - PV VTI 10.83 cm - PV peak gradient 2.2 mmHg - PV mean gradient 1.08 mmHg - NM end-diastolic Vmax 1.28 m/sec - RVOT Vmax 0.01 m/sec - RVOT VTI 11.04 cm - RVOT peak gradient 2.38 mmHg - Miranda/IV: Voiding Method Condom Catheter IV Catheter Type [Left Upper Peripheral IV arm] IV Catheter Type [Left Hand] Peripheral IV IV Catheter Type [Right VAS Cath Internal Jugular] IV Catheter Type [Left Forearm Peripheral IV ] IV Catheter Type [Right INT / Saline Lock Forearm] Active Medications - Current Medications Current Medications: Generic Name Dose Route Start Last Admin Trade Name Freq PRN Reason Stop Dose Admin Acetaminophen 650 mg 10/11/19 02:03 Tylenol PO Q4H PRN Pain MILD(1-3)/Fever >100.5/ANNE Lipase/Protease/Amylase 1 each 10/25/19 14:06 Pancreeli Nuñez 10,500 Unit FEEDTUBE PRN PRN For Clogged Feeding Tube Hydralazine HCl 5 mg 10/11/19 08:00 Apresoline IV Q30MIN PRN Hypertension Hydralazine HCl 25 mg 10/21/19 15:00 10/27/19 06:14 Apresoline PO 25 mg Q8HR NETO Administration Sodium Chloride 100 mls @ 999 mls/hr 10/23/19 12:00 Nacl 0.9% IV EMILIE PRN Hypotension Isosorbide Dinitrate/Hydralazine 1 each 10/13/19 14:00 10/27/19 06:14 Bidil 20/37.5mg PO 1 each Q8HR NETO Administration Labetalol HCl 10 mg 10/11/19 13:00 10/18/19 04:10 Labetalol IV 10 mg Q4H PRN Administration Hypertension Metoprolol Tartrate 50 mg 10/11/19 10:00 10/27/19 10:36 Metoprolol PO 50 mg BID NETO Administration Ondansetron HCl 4 mg 10/11/19 02:03 Zofran IV Q8H PRN Nausea And Vomiting Pantoprazole Sodium 40 mg 10/24/19 10:00 10/27/19 10:37 Protonix PO 40 mg DAILY NETO Administration Simple Syrup 15 ml 10/25/19 14:06 Simple Syrup FEEDTUBE PRN PRN Hypoglycemia Simple Syrup 30 ml 10/25/19 14:06 Simple Syrup FEEDTUBE PRN PRN Hypoglycemia Sodium Bicarbonate 325 mg 10/25/19 14:06 Sodium Bicarbonate FEEDTUBE PRN PRN For Clogged Feeding Tube Sodium Chloride 10 ml 10/11/19 10:00 10/27/19 10:38 Sodium Chloride Flush Syringe 10 Ml IV 10 ml BID NETO Administration Sodium Chloride 10 ml 10/11/19 02:03 Sodium Chloride Flush Syringe 10 Ml IV PRN PRN LINE FLUSH Nutrition/Malnutrition Assess - Dietary Evaluation Nutrition/Malnutrition Findings: Nutrition Notes Start: 10/11/19 13:24 Freq: Status: Active Protocol: Document 05/22/20 09:15 LP (Rec: 10/27/19 09:20 LP [id number]) Nutrition Notes Initial or Follow up Reassessment Current Diagnosis Acute Kidney Injury, Hypertension Other Pertinent Diagnosis on HD, dehydration, Afib, AMS Current Diet Nepro at 40ml/hr Labs/Tests Reviewed Pertinent Medications Reviewed Height 5 ft 6 in Weight 49.1 kg [place] Body Weight (kg) 64.54 BMI 17.4 Weight Status Underweight Subjective/Other Information Pt tolerating TF at goal rate. Pt with possible PEG placement pending family decsion. Percent of energy/protein needs met: 100%/100% Burn Absent Trauma Absent Current % PO Negligible Minimum of two criteria No Energy Intake (non-severe) <75% Estimated Energy Requirement >7 days #1 Nutrition Diagnosis Inadequate oral intake Diagnosis Progress(for reassessment Continues documentation) Is patient on ventilator? No Is Patient Ambulatory and/or Out of Bed No REE-([place] Jeor-confined to bed) 1361.880 Kcal/Kg value to use for calculation 35 Approximate Energy Requirements Using 1719 kcal/Kg Calculation Used for Recommendations Kcal/kg Additional Notes Protein: >59g (>1.2g/kg) Fluid: per MD Nutrition Intervention Change Diet Order: TF Nutrition Support: Nepro 1.8 at 40ml/hr Flush 130ml q4h Kcal 1,728 Protein (gm) 78 Fluid (mL) 698 Goal #1 Meet at least 80% of kcal and protein needs Anticipated Discharge Needs: unable to determine at this time Follow-Up By: 10/31/19 Additional Comments Follow for stable TF
[2019-10-27] MEDS ORDERED: SODIUM CHLORIDE 0.9% 100 ML IV PRN (11:00)
--- NOTE | 2019-10-27 13:15 | Progress Note ---
Assessment and Plan Acute renal failure, possible ischemic ATN from low BP, also possible TTP/HUS Sepsis Afib with RVR Hypotension Thrombocytopenia Hypokalemia, Resolved Plan: Permcath today, HD for clearance and volume removal post procedure can be discharged from nephrology standpoint after permcath if outpatient dialysis was set up [id number] Strict I&O monitoring Obtain daily weights Renally dose medications Avoid nephrotoxic agents Monitor electrolytes and renal function closely Subjective Date of service: 10/27/19 Principal diagnosis: Metabolic Encephalopathy Interval history: appears comfortable, non verbal, no family at bedside. Objective - Vital Signs Vital signs: Vital Signs - 12hr 10/27/19 10/27/19 10/27/19 02:00 04:29 07:43 Temperature 97.3 F L 97.5 F L Pulse Rate 59 L 66 77 Respiratory 16 18 Rate Blood Pressure 160/86 119/66 O2 Sat by Pulse 98 100 Oximetry 10/27/19 10:36 Temperature Pulse Rate 77 Respiratory Rate Blood Pressure 119/66 O2 Sat by Pulse Oximetry - General Appearance General appearance: well-developed EENT: ATNC, PERRL, mucous membranes moist Neck: no JVD, no carotid bruit Respiratory: Present: Clear to Ascultation. Absent: Rales, Ronchi Cardiology: regular, S1S2 Gastrointestinal: normoactive bowel sounds, no absent bowel sounds, no tenderness Integumentary: no rash, warm and dry Neurologic: other (does not follow commands) Musculoskeletal: other (no edema in BLE) - Lab 10/25/19 05:17 10/26/19 06:06 Most recent lab results Calcium 8.0 mg/dL (8.4-10.2) L 10/26/19 06:06 Phosphorus 4.40 mg/dL (2.5-4.5) D 10/25/19 05:17 Magnesium 1.80 mg/dL (1.7-2.3) 10/24/19 08:36 Urine Creatinine 69.2 mg/dL (0.1-20.0) H 10/24/19 22:00 Medications & Allergies - Medications Allergies/Adverse Reactions: Allergies No Known Allergies Allergy (Unverified 10/10/19 21:31) Home Medications: Home Medications Medication Instructions Recorded Confirmed Last Taken Type Metoprolol 50 mg PO BID 10/10/19 10/18/19 Unknown History Active Medications: Generic Name Dose Route Start Last Admin Trade Name Freq PRN Reason Stop Dose Admin Acetaminophen 650 mg 10/11/19 02:03 Tylenol PO Q4H PRN Pain MILD(1-3)/Fever >100.5/ANNE Lipase/Protease/Amylase 1 each 10/25/19 14:06 Airam Nuñez 10,500 Unit FEEDTUBE PRN PRN For Clogged Feeding Tube Hydralazine HCl 5 mg 10/11/19 08:00 Apresoline IV Q30MIN PRN Hypertension Hydralazine HCl 25 mg 10/21/19 15:00 10/27/19 06:14 Apresoline PO 25 mg Q8HR NETO Administration Sodium Chloride 100 mls @ 999 mls/hr 10/27/19 11:00 Nacl 0.9% IV EMILIE PRN Hypotension Isosorbide Dinitrate/Hydralazine 1 each 10/13/19 14:00 10/27/19 06:14 Bidil 20/37.5mg PO 1 each Q8HR NETO Administration Labetalol HCl 10 mg 10/11/19 13:00 10/18/19 04:10 Labetalol IV 10 mg Q4H PRN Administration Hypertension Metoprolol Tartrate 50 mg 10/11/19 10:00 10/27/19 10:36 Metoprolol PO 50 mg BID NETO Administration Ondansetron HCl 4 mg 10/11/19 02:03 Zofran IV Q8H PRN Nausea And Vomiting Pantoprazole Sodium 40 mg 10/24/19 10:00 10/27/19 10:37 Protonix PO 40 mg DAILY NETO Administration Simple Syrup 15 ml 10/25/19 14:06 Simple Syrup FEEDTUBE PRN PRN Hypoglycemia Simple Syrup 30 ml 10/25/19 14:06 Simple Syrup FEEDTUBE PRN PRN Hypoglycemia Sodium Bicarbonate 325 mg 10/25/19 14:06 Sodium Bicarbonate FEEDTUBE PRN PRN For Clogged Feeding Tube Sodium Chloride 10 ml 10/11/19 10:00 10/27/19 10:38 Sodium Chloride Flush Syringe 10 Ml IV 10 ml BID NETO Administration Sodium Chloride 10 ml 10/11/19 02:03 Sodium Chloride Flush Syringe 10 Ml IV PRN PRN LINE FLUSH
[2019-10-27] MEDS ORDERED: HEPARIN/NS 5000 UNIT/500ML 500 ML IR ONE (13:58)
[2019-10-27] MEDS ORDERED: SODIUM CHLORIDE 0.9% 250ML 250 ML ONE (13:59)
[2019-10-27] MEDS ORDERED: MIDAZOLAM 2 MG/2 ML INJ ONE (13:59)
[2019-10-27] MEDS ORDERED: LIDOCAINE (2%) 20 MG/1 ML VIAL 20 ML MDV INFILTRATI ONE (13:59)
[2019-10-27] MEDS ORDERED: fentaNYL 100 MCG/2 ML INJ ONE (13:59)
[2019-10-27] MEDS: HEPARIN 10,000 UNITS/10 ML VIAL ONE ×2 (14:30→14:31)
--- NOTE | 2019-10-27 14:44 | Operative Report ---
Operative Report Operative Report: Date of Procedure: 10/27/2019 Pre-operative Diagnosis: End-Stage Renal Disease Post-operative Diagnosis: Same Procedure(s): 1. Exchange of Right Internal Jugular Vas-Cath to 23 Cm Glidepath Permacath over Wire 2. Radiologic Supervision with Interpretation Surgeon: Tyson Howell M.D. Asset Availability Leader: Alie Anesthesia: 1% Lidocaine EBL: Minimal Counts: Correct Complications: None Condition: Stable Findings: Both ports easily flushed and aspirated at the completion of the case. Permacath placed with distal tip in the right atrium and there was no evidence of pneumothorax at the completion of the case. Specimen: Vas-Cath was discarded Indication: The patient is an 84-year-old male with a history of renal failure who had a Vas-Cath in place and now needs conversion to a permacath in preparation of discharge from the hospital. His family was given the risk, benefits, and alternative procedures and consented to the procedure. Description of Procedure: The patient was brought to the [facility] and laid in supine position. The patient's right neck, chest, and indwelling catheter were prepped and draped in normal sterile fashion. A 0.035 stiff Glidewire was advanced through his indwelling Vas-Cath and into the inferior vena cava under fluoroscopy. 1% lidocaine was used to anesthetize the skin surrounding the insertion site at the internal jugular vein as well as the site chosen for the exit site at the chest and the presumed tract for the new permacath. The Vas-Cath was then removed leaving the wire in place and the 15 Romanian peel-away SafeSheath was then inserted by the Seldinger technique into the internal jugular vein. A small stab incision was created with an 11 blade on the right chest and after connecting the permacath to a tunneler the permacath was tunneled from the exit site on the chest towards the entry site on the neck. After removing the wire and dilator from the SafeSheath the permacath was inserted into the peel-away sheath and while advancing the permacath the SafeSheath was peeled away. The permacath was positioned with the distal tip in the right atrium. Both ports easily aspirated and flushed. Both ports were primed with the appropriate amount of heparin and then the catheter was secured in position with a 2-0 Ethilon in interrupted fashion. The neck incision was closed with a 4-0 Monocryl in interrupted fashion and then dressed with Dermabond. The catheter was then dressed with a sterile dressing. The final fluoroscopy demonstrated t hat the catheter was in appropriate position with the distal tip in the right atrium and no evidence of pneumothorax. The patient tolerated the procedure well was transported to the dialysis unit in stable condition.
--- NOTE | 2019-10-27 15:44 | Event Note ---
Date: 10/27/19 Called Elsie, son, and discussed need for PEG tube plcement. he will discuss with family and get back to me.
[2019-10-28 05:21] LABS: Calcium 9.2 mg/dL (8.4-10.2)
[2019-10-28] MEDS: hydrALAZINE 25 MG TAB PO SCH ×3 (05:28→21:13)
[2019-10-28] MEDS: ISOSORB DINIT/HYDRALAZINE 20-37.5MG TAB PO SCH ×3 (05:28→21:13)
--- NOTE | 2019-10-28 08:54 | Progress Note ---
Assessment and Plan Assessment: Acute renal failure, possible ischemic ATN from low BP, also possible TTP/HUS Sepsis Afib with RVR Hypotension Thrombocytopenia Hypokalemia, Resolved Plan: S/P Perm-cath placement yesterday S/P hemodialysis yesterday Creatinine clearance noted to be 11 ml/min ARABELLA, ANCA, SPEP, C3, C4, Anti-GBM, SPEP, urine eosinophils-negative Secondary GN work up was negative except for HBVsag and RPR, ID is following [id number] Replete potassium as needed Strict I&O monitoring Obtain daily weights Renally dose medications Avoid nephrotoxic agents Monitor electrolytes and renal function closely Consulted CM (spoke to Merary today) for outpatient HD placement arrangement to [facility] [place] Can be discharged from nephrology standpoint once outpatient dialysis is set up Subjective Date of service: 10/28/19 Principal diagnosis: Metabolic Encephalopathy Interval history: Patient seen lying in bed. Family to make decision regarding PEG tube placement. Objective - Vital Signs Vital signs: Vital Signs - 12hr 10/27/19 10/27/19 10/27/19 22:01 23:46 23:50 Temperature 98.5 F Pulse Rate 71 98 H Respiratory 20 Rate Blood Pressure 135/73 93/55 O2 Sat by Pulse 97 Oximetry 10/28/19 10/28/19 05:00 05:28 Temperature 98.0 F Pulse Rate 108 H 108 H Respiratory 22 Rate Blood Pressure 120/63 120/63 O2 Sat by Pulse 97 Oximetry - General Appearance General appearance: well-developed, fatigue EENT: ATNC, PERRL Neck: no JVD, supple Respiratory: Present: Decreased Breath Sounds Cardiology: S1S2 Gastrointestinal: normoactive bowel sounds, other (has dobhoff feeding tube) Integumentary: warm and dry Neurologic: other (Awake and alert) Musculoskeletal: other (No edema) - Lab 10/25/19 05:17 10/28/19 04:28 Most recent lab results Calcium 9.2 mg/dL (8.4-10.2) 10/28/19 04:28 Phosphorus 4.40 mg/dL (2.5-4.5) D 10/25/19 05:17 Magnesium 1.80 mg/dL (1.7-2.3) 10/24/19 08:36 Urine Creatinine 69.2 mg/dL (0.1-20.0) H 10/24/19 22:00 Medications & Allergies - Medications Allergies/Adverse Reactions: Allergies No Known Allergies Allergy (Unverified 10/10/19 21:31) Home Medications: Home Medications Medication Instructions Recorded Confirmed Last Taken Type Metoprolol 50 mg PO BID 10/10/19 10/18/19 Unknown History Active Medications: Generic Name Dose Route Start Last Admin Trade Name Freq PRN Reason Stop Dose Admin Acetaminophen 650 mg 10/11/19 02:03 Tylenol PO Q4H PRN Pain MILD(1-3)/Fever >100.5/ANNE Lipase/Protease/Amylase 1 each 10/25/19 14:[address] 10,500 Unit FEEDTUBE PRN PRN For Clogged Feeding Tube Hydralazine HCl 5 mg 10/11/19 08:00 Apresoline IV Q30MIN PRN Hypertension Hydralazine HCl 25 mg 10/21/19 15:00 10/28/19 05:28 Apresoline PO 25 mg Q8HR NETO Administration Sodium Chloride 100 mls @ 999 mls/hr 10/27/19 11:00 Nacl 0.9% IV EMILIE PRN Hypotension Isosorbide Dinitrate/Hydralazine 1 each 10/13/19 14:00 10/28/19 05:28 Bidil 20/37.5mg PO 1 each Q8HR NETO Administration Labetalol HCl 10 mg 10/11/19 13:00 10/18/19 04:10 Labetalol IV 10 mg Q4H PRN Administration Hypertension Metoprolol Tartrate 50 mg 10/11/19 10:00 10/27/19 22:02 Metoprolol PO 50 mg BID NETO Administration Ondansetron HCl 4 mg 10/11/19 02:03 Zofran IV Q8H PRN Nausea And Vomiting Pantoprazole Sodium 40 mg 10/24/19 10:00 10/27/19 10:37 Protonix PO 40 mg DAILY NETO Administration Simple Syrup 15 ml 10/25/19 14:06 Simple Syrup FEEDTUBE PRN PRN Hypoglycemia Simple Syrup 30 ml 10/25/19 14:06 Simple Syrup FEEDTUBE PRN PRN Hypoglycemia Sodium Bicarbonate 325 mg 10/25/19 14:06 Sodium Bicarbonate FEEDTUBE PRN PRN For Clogged Feeding Tube Sodium Chloride 10 ml 10/11/19 10:00 10/27/19 22:02 Sodium Chloride Flush Syringe 10 Ml IV 10 ml BID NETO Administration Sodium Chloride 10 ml 10/11/19 02:03 Sodium Chloride Flush Syringe 10 Ml IV PRN PRN LINE FLUSH
--- NOTE | 2019-10-28 09:15 | Progress Note ---
Assessment and Plan 1. Chronic combined systolic and diastolic heart failure 2. Dilated cardiomyopathy left ventricular ejection fraction 35 to 40% 3. Essential hypertension 4. Acute on chronic renal failure currently on hemodialysis 5. Metabolic encephalopathy 6. Anemia and thrombocytopenia 7. Atrial fibrillation with a controlled ventricular response Plan. Conservative cardiac management patient is not a candidate for invasive cardiac management. Anticoagulation on hold secondary to hematologic abnormalities especially anemia. Subjective Date of service: 10/28/19 Principal diagnosis: Metabolic Encephalopathy Interval history: No change in mental status noncommunicative Objective Vital Signs Temp Pulse Resp BP Pulse Ox 10/28/19 05:28 108 H 120/63 10/28/19 05:00 98.0 F 108 H 22 120/63 97 10/27/19 23:50 98.5 F 98 H 20 97 10/27/19 23:46 93/55 10/27/19 22:01 71 135/73 10/27/19 20:09 97.3 F L 14 133/82 10/27/19 20:05 74 10/27/19 18:30 97.5 F L 71 18 135/73 10/27/19 18:24 71 135/73 10/27/19 18:15 69 112/75 10/27/19 18:00 85 120/64 10/27/19 17:45 81 129/57 10/27/19 17:30 60 109/68 10/27/19 17:15 74 119/58 10/27/19 17:00 74 120/65 10/27/19 16:45 75 130/76 10/27/19 16:30 66 136/65 10/27/19 16:15 99 H 128/74 10/27/19 16:00 66 151/83 10/27/19 15:45 68 157/71 10/27/19 15:30 82 146/70 10/27/19 15:24 68 142/84 10/27/19 15:15 97.6 F 68 18 141/66 10/27/19 10:36 77 119/66 - Physical Examination General: No Apparent Distress, Cachectic HEENT: Positive: PERRL Neck: Positive: neck supple, trachea midline. Negative: JVD/HJR Cardiac: Positive: Regular Rate, S1/S2, S3, PMI, Dilated, Laterally Displaced Lungs: Positive: clear to auscultation, No Wheeze, Rales, Rhonchi Neuro: Positive: Weakness, Other (no verbal or communicative ) Abdomen: Positive: Soft, Active Bowel Sounds Skin: Positive: Clear Extremities: Absent: edema - Labs and Meds Comprehensive Metabolic Panel 10/28/19 Range/Units 04:28 Sodium 138 (137-145) mmol/L Potassium 3.8 (3.6-5.0) mmol/L Chloride 96.0 L (98-107) mmol/L Carbon Dioxide 26 (22-30) mmol/L BUN 31 H (9-20) mg/dL Creatinine 1.9 H (0.8-1.5) mg/dL Glucose 143 H (75-100) mg/dL Calcium 9.2 (8.4-10.2) mg/dL
[2019-10-28] MEDS: PANTOPRAZOLE 40 MG TAB PO SCH (10:33)
[2019-10-28] MEDS: METOPROLOL TARTRATE 50 MG TAB PO SCH ×2 (10:33→21:13)
--- NOTE | 2019-10-28 10:46 | Progress Note ---
Assessment and Plan Assessment and plan: Toxic metabolic encephalopathy. Treat underlying causes SIRS No obvious infection Chest x-ray negative, CT of the abdomen showed some mild nonspecific inflammation near the distal aorta. ID following A. fib with RVR, status post conversion DC heparin drip, patient thrombocytopenic cardiology following Acute metabolic encephalopathy altered mental status,confusion Anemia. Type and cross and transfuse 2 units PRBCs. Melena. GI consulted Chronic hepatitis B. hepatitis B surface antigen positive. LFTs not elevated. 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 Slight improvement. Cr 3.[address] Oliveira, hematology for low plaletels but he says he does not work here anymore. called and updated daughter on [phone] 10/16/19 patient presented with alterd mental status,nausea,vomiting. Found to have PRIMO due to ATN, thrombocytopenia. Cr worsening. Discussed with Nephrology yesterday. Plan to initiate dialysis if he gets worse. labs show Syphilis IgG antibody positive. ID to evaluate. 10/17/2019. Follow-up hepatitis B PCR. Check MRI of brain. Follow-up RPR with titer to determine active syphilis. 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 If mental status does not improve consider LP. 10/18/2019. Neurology evaluated the patient and diagnosed with metabolic encephalopathy with etiology likely secondary to hypertensive urgency, A-fib w/ RVR, ARF requiring HD, SIRS, hypernatremia, lactic acidosis, and leukocytosis. ID team investigating for possible syphilis. As patient was not found to have an infectious source as of yet, agree with ID that MRI brain would aid in further investigating potential of meningo-encephalitis, and to rule out any intracranial pathology contributing to current mental status. If patient's mental status does not continue to improve as metabolic/infectious abnormalities are corrected, then will consider LP/CSF studies. 10/19/2019. Neurology evaluated the patient and diagnosed with metabolic encephalopathy with etiology likely secondary to hypertensive urgency, A-fib w/ RVR, ARF requiring HD, SIRS, hypernatremia, lactic acidosis, and leukocytosis. CT head: Lt. frontal white matter hypodensity, age indeterminant. MRI Brain: right temporal area of diffusion restriction, which may be T2 shine-through vs. post-ictal change vs. encephalitis. Unlikely to be infarct, however can not be completely ruled out, given patient has A-fib. Echo: EF 35-40%, LA severely dilated. EEG pending. 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 Follow-up lumbar puncture. 10/20/19. ?meningitis ?neurosyphilis. ID to rule out neurosyphilis, HSV encephalitis. MRI brain shows small area of diffusion signal abnormality in the anterolateral cortex on the right. CSF studies pending. Continue acyclovir 500 mg IV daily per ID. From kidney perspective, the patient cont to be anuric, likely will need permcath placement Wednesday and outpatient dialysis if no improvement in PRIMO, will try to hold HD during the weekend if possible. LDH cont to be elevated, hematology consult is not available, [id number] requested on 10/18. Secondary GN work up was negative except for HBVsag and RPR, ID is following. With regards to atrial fibrillation, patient remains on metoprolol for rate control. Pt has been deemed to be a poor candidate for long-term anticoagulation given overall frailty and thrombocytopenia. 10/21/2019. Patient noted to have anemia this morning and reports of melena per nursing. Patient will receive 2 units PRBCs and follow-up H&H. GI consultation pending. Stop aspirin. Protonix drip. CSF not consistent with meningitis/encephalitis. Acyclovir has been discontinued by ID. Patient with metabolic encephalopathy secondary to renal failure. Patient with acute renal failure likely ischemic ATN from hypotension. Patient continues to be anuric and will likely need PermCath placement Wednesday and outpatient dialysis if no improvement in PRIMO, will try to hold HD during the weekend if possible per nephrology recommendation. Neurology following. 10/22/2019. EGD revealed 1.5 cm duodenal bulb ulcer. Continue to follow H&H and transfuse for hemoglobin less than 7. Patient with metabolic encephalopathy secondary to renal failure. Patient with acute renal failure likely ischemic ATN from hypotension. Patient continues to be anuric and will likely need PermCath placement Wednesday and outpatient dialysis if no improvement in PRIMO. 10/23/2019. EGD revealed 1.5 cm duodenal bulb ulcer. Continue to follow H&H and transfuse for hemoglobin less than 7. Patient with metabolic encephalopathy secondary to renal failure. Patient with acute renal failure likely ischemic ATN from hypotension. Per nephrology, patient continues to be anuric and will likely have PermCath placement today and outpatient dialysis if no improvement in PRIMO. 10/24/2019 Patient is 84 yo with acute kidney injury due to ATN, therefore started on hemodialysis. manager ecommerce to arrange outpatient dialysis. Patient also had GI bleed. I discussed with Dr. Barth. He recommends Dobhoff tube. I discussed with Nurse,orders placed. 10/25/2019 Patient with acute kidney injury due to ATN, started on hemodialysis. Dobhoff tube placed as recommended by GI Physician. No fever. 10/26/2019 Patient with acute kidney injury due to ATN, started on hemodialysis. Dobhoff tube placed as recommended by GI Physician. Still not eating much. 10/27/2019 Patient with acute kidney injury due to ATN, started on hemodialysis. Dobhoff tube placed as recommended by GI Physician. Still not eating much. I discussed with ISRAEL Raymond. Patient will need PEG. I called son, did not answer. Will call again later today. 10/28/2019 Patient with acute kidney injury due to ATN, started on hemodialysis. Dobhoff tube placed as recommended by GI Physician. Still not eating much. I discussed with ISRAEL Raymond. Patient will need PEG. I called sonElsie, yesterday 10/27/19, discussed with him that patient may need PEG tube in few days if still not eating. History Interval history: Patient with failure to thrive with afib,presented with nausea, vomiting altered mental status Diagnosed with acute kidney injury, started on dialysis Dobhoff tube placed Hospitalist Physical - Physical exam Narrative exam: GEN: Not in acute distress, malnourished HEENT: Normocephalic, atraumatic, Neck: supple, No JVD Lungs: Clear to auscultation bilaterally, heart;S1 and S2 reg, no murmurs, rubs or gallop Abd:soft, non tender, non distended, normal bowel sounds, Ext: No edema, no clubbing, no cyanosis, Neuro: Awake,alert, confused - Constitutional Vitals: Temp Pulse Resp BP Pulse Ox 98.0 F 108 H 22 120/63 97 10/28/19 05:00 10/28/19 05:28 10/28/19 05:00 10/28/19 05:28 10/28/19 05:00 General appearance: Present: no acute distress HEART Score - HEART Score Troponin: Troponin T 0.024 ng/mL (0.00-0.029) 10/10/19 21:40 Results - Labs CBC & Chem 7: 10/25/19 05:17 10/28/19 04:28 Labs: Laboratory Last Values WBC 10.5 K/mm3 (4.5-11.0) 10/25/19 05:17 RBC 2.92 M/mm3 (3.65-5.03) L 10/25/19 05:17 Hgb 9.3 gm/dl (11.8-15.2) L 10/25/19 05:17 Hct 26.9 % (35.5-45.6) L 10/25/19 05:17 MCV 92 fl (84-94) 10/25/19 05:17 MCH 32 pg (28-32) 10/25/19 05:17 MCHC 34 % (32-34) 10/25/19 05:17 RDW 18.9 % (13.2-15.2) H 10/25/19 05:17 Plt Count 123 K/mm3 (140-440) L 10/25/19 05:17 Lymph % (Auto) 9.0 % (13.4-35.0) L 10/23/19 06:52 [place] % (Auto) 6.5 % (0.0-7.3) 10/23/19 06:52 Eos % (Auto) 0.9 % (0.0-4.3) 10/23/19 06:52 Baso % (Auto) 0.3 % (0.0-1.8) 10/23/19 06:52 Lymph # 1.3 K/mm3 (1.2-5.4) 10/23/19 06:52 [place] # 0.9 K/mm3 (0.0-0.8) H 10/23/19 06:52 Eos # 0.1 K/mm3 (0.0-0.4) 10/23/19 06:52 Baso # 0.0 K/mm3 (0.0-0.1) 10/23/19 06:52 Add Manual Diff Complete 10/11/19 04:42 Total Counted 100 10/11/19 04:42 Seg Neutrophils % 83.3 % (40.0-70.0) H 10/23/19 06:52 Seg Neuts % (Manual) 93.0 % (40.0-70.0) H 10/11/19 04:42 Band Neutrophils % 1.0 % 10/11/19 04:42 Lymphocytes % (Manual) 2.0 % (13.4-35.0) L 10/11/19 04:42 Reactive Lymphs % (Man) 0 % 10/11/19 04:42 Monocytes % (Manual) 4.0 % (0.0-7.3) 10/11/19 04:42 Eosinophils % (Manual) 0 % (0.0-4.3) 10/11/19 04:42 Basophils % (Manual) 0 % (0.0-1.8) 10/11/19 04:42 Metamyelocytes % 0 % 10/11/19 04:42 Myelocytes % 0 % 10/11/19 04:42 Promyelocytes % 0 % 10/11/19 04:42 Blast Cells % 0 % 10/11/19 04:42 Nucleated RBC % Not Reportable 10/11/19 04:42 Seg Neutrophils # 11.6 K/mm3 (1.8-7.7) H 10/23/19 06:52 Seg Neutrophils # Man 14.8 K/mm3 (1.8-7.7) H 10/11/19 04:42 Band Neutrophils # 0.2 K/mm3 10/11/19 04:42 Lymphocytes # (Manual) 0.3 K/mm3 (1.2-5.4) L 10/11/19 04:42 Abs React Lymphs (Man) 0.0 K/mm3 10/11/19 04:42 Monocytes # (Manual) 0.6 K/mm3 (0.0-0.8) 10/11/19 04:42 Eosinophils # (Manual) 0.0 K/mm3 (0.0-0.4) 10/11/19 04:42 Basophils # (Manual) 0.0 K/mm3 (0.0-0.1) 10/11/19 04:42 Metamyelocytes # 0.0 K/mm3 10/11/19 04:42 Myelocytes # 0.0 K/mm3 10/11/19 04:42 Promyelocytes # 0.0 K/mm3 10/11/19 04:42 Blast Cells # 0.0 K/mm3 10/11/19 04:42 WBC Morphology Not Reportable 10/11/19 04:42 Hypersegmented Neuts Not Reportable 10/11/19 04:42 Hyposegmented Neuts Not Reportable 10/11/19 04:42 Hypogranular Neuts Not Reportable 10/11/19 04:42 Smudge Cells Not Reportable 10/11/19 04:42 Toxic Granulation Not Reportable 10/11/19 04:42 Toxic Vacuolation Not Reportable 10/11/19 04:42 Dohle Bodies Not Reportable 10/11/19 04:42 Pelger-Huet Anomaly Not Reportable 10/11/19 04:42 Glenys Rods Not Reportable 10/11/19 04:42 Platelet Estimate Consistent w auto 10/11/19 04:42 Clumped Platelets Not Reportable 10/11/19 04:42 Plt Clumps, EDTA Not Reportable 10/11/19 04:42 Large Platelets Not Reportable 10/11/19 04:42 Giant Platelets Not Reportable 10/11/19 04:42 Platelet Satelliting Not Reportable 10/11/19 04:42 Plt Morphology Comment Not Reportable 10/11/19 04:42 RBC Morphology Not Reportable 10/11/19 04:42 Dimorphic RBCs Not Reportable 10/11/19 04:42 Polychromasia Not Reportable 10/11/19 04:42 Hypochromasia Not Reportable 10/11/19 04:42 Poikilocytosis Not Reportable 10/11/19 04:42 Anisocytosis Not Reportable 10/11/19 04:42 Microcytosis Not Reportable 10/11/19 04:42 Macrocytosis Not Reportable 10/11/19 04:42 Spherocytes Not Reportable 10/11/19 04:42 Pappenheimer Bodies Not Reportable 10/11/19 04:42 Sickle Cells Not Reportable 10/11/19 04:42 Target Cells Not Reportable 10/11/19 04:42 Tear Drop Cells Not Reportable 10/11/19 04:42 Ovalocytes Not Reportable 10/11/19 04:42 Helmet Cells Not Reportable 10/11/19 04:42 [place] Bodies Not Reportable 10/11/19 04:42 [place] Rings Not Reportable 10/11/19 04:42 Paula Cells Not Reportable 10/11/19 04:42 Bite Cells Not Reportable 10/11/19 04:42 Crenated Cell Not Reportable 10/11/19 04:42 Elliptocytes Rare 10/11/19 04:42 Acanthocytes (Spur) Not Reportable 10/11/19 04:42 Rouleaux Not Reportable 10/11/19 04:42 Hemoglobin C Crystals Not Reportable 10/11/19 04:42 Schistocytes Not Reportable 10/11/19 04:42 Malaria parasites Not Reportable 10/11/19 04:42 Robin Bodies Not Reportable 10/11/19 04:42 Hem Pathologist Commnt No 10/11/19 04:42 PT 14.7 Sec. (12.2-14.9) 10/19/19 08:00 INR 1.14 (0.87-1.13) H 10/19/19 08:00 APTT 34.3 Sec. (24.2-36.6) 10/19/19 08:00 Sodium 138 mmol/L (137-145) 10/28/19 04:28 Potassium 3.8 mmol/L (3.6-5.0) 10/28/19 04:28 Chloride 96.0 mmol/L (98-107) L 10/28/19 04:28 Carbon Dioxide 26 mmol/L (22-30) 10/28/19 04:28 Anion Gap 20 mmol/L 10/28/19 04:28 BUN 31 mg/dL (9-20) H 10/28/19 04:28 Creatinine 1.9 mg/dL (0.8-1.5) H 10/28/19 04:28 Estimated GFR 34 ml/min 10/28/19 04:28 BUN/Creatinine Ratio 16 % 10/28/19 04:28 Glucose 143 mg/dL (75-100) H 10/28/19 04:28 POC Glucose 95 (70-105) 10/27/19 12:09 Lactic Acid 3.20 mmol/L (0.7-2.0) H* 10/10/19 23:04 Calcium 9.2 mg/dL (8.4-10.2) 10/28/19 04:28 Phosphorus 4.40 mg/dL (2.5-4.5) D 10/25/19 05:17 Magnesium 1.80 mg/dL (1.7-2.3) 10/24/19 08:36 Total Bilirubin 2.50 mg/dL (0.1-1.2) H 10/10/19 21:40 AST 39 units/L (5-40) 10/10/19 21:40 ALT 22 units/L (7-56) 10/10/19 21:40 Alkaline Phosphatase 102 units/L (35-129) 10/10/19 21:40 Ammonia 54.0 umol/L (25-60) 10/10/19 21:40 Lactate Dehydrogenase 401 units/L (91-180) H 10/19/19 05:22 Total Creatine Kinase 563 units/L (55-170) H 10/14/19 10:56 Troponin T 0.024 ng/mL (0.00-0.029) 10/10/19 21:40 Serum Total Protein 5.4 g/dL (6.1-8.1) L 10/15/19 08:46 Total Protein 7.6 g/dL (6.3-8.2) 10/10/19 21:40 Albumin 2.7 g/dL (3.8-4.8) L 10/15/19 08:46 Albumin/Globulin Ratio 1.2 % 10/10/19 21:40 Alkrb-8-Qlrpdcqnj 0.5 g/dL (0.2-0.3) H 10/15/19 08:46 Suxoq-0-Msqymqmtg 0.9 g/dL (0.5-0.9) 10/15/19 08:46 Beta Globulins 0.3 g/dL (0.2-0.5) 10/15/19 08:46 Gamma Globulins 0.7 g/dL (0.8-1.7) L 10/15/19 08:46 Abnorm Protein Band 1 see below 10/15/19 08:46 PEP Interpretation see below H 10/15/19 08:46 TSH 2.550 mlU/mL (0.270-4.200) 10/10/19 21:40 Urine Color Yellow (Yellow) 10/10/19 23:18 Urine Turbidity Clear (Clear) 10/10/19 23:18 Urine pH 6.0 (5.0-7.0) 10/10/19 23:18 Ur Specific [place] 1.015 (1.003-1.030) 10/10/19 23:18 Urine Protein 300 mg/dl mg/dL (Negative) 10/10/19 23:18 Urine Glucose (UA) 50 mg/dL (Negative) 10/10/19 23:18 Urine Ketones Neg mg/dL (Negative) 10/10/19 23:18 Urine Blood Sm (Negative) 10/10/19 23:18 Urine Nitrite Neg (Negative) 10/10/19 23:18 Urine Bilirubin Neg (Negative) 10/10/19 23:18 Urine Urobilinogen < 2.0 mg/dL (<2.0) 10/10/19 23:18 Ur Leukocyte Esterase Neg (Negative) 10/10/19 23:18 Urine WBC (Auto) 1.0 /HPF (0.0-6.0) 10/10/19 23:18 Urine RBC (Auto) 9.0 /HPF (0.0-6.0) 10/10/19 23:18 U Epithel Cells (Auto) < 1.0 /HPF (0-13.0) 10/10/19 23:18 Urine Bacteria (Auto) 1+ /HPF (Negative) 10/10/19 23:18 Hyaline Casts 6 /LPF 10/10/19 23:18 Urine Mucus Few /HPF 10/10/19 23:18 Urine Total Volume 500 ml 10/24/19 22:00 Urine Creatinine 69.2 mg/dL (0.1-20.0) H 10/24/19 22:00 Ur Creatinine 24 Hour 0.3 (0.8-2.8) L 10/24/19 22:00 Height (in) 66.0 inches 10/24/19 22:00 Weight (lb) 108.2 lbs 10/24/19 22:00 Creatinine Clearance 11 10/24/19 22:00 CSF Appearance Clear 10/19/19 14:20 CSF Color Colorless 10/19/19 14:20 CSF WBC 4 /mm3 (1-10) 10/19/19 14:20 CSF RBC 3 /mm3 (0-0) 10/19/19 14:20 CSF Seg Neutrophils 2.0 % (0-6) 10/19/19 14:20 CSF Lymphocytes % 50.0 % (40-80) 10/19/19 14:20 CSF Reactive Lymphs 0 % 10/19/19 14:20 CSF Monocytes % 48.0 % (15-45) 10/19/19 14:20 CSF Eosinophils % 0 % 10/19/19 14:20 CSF Basophils 0 % 10/19/19 14:20 CSF Pathologist Review C 10/19/19 14:20 CSF Glucose 48 mg/dL 10/19/19 14:20 CSF Total Protein 65 mg/dL 10/19/19 14:20 CSF VDRL Nonreactive (Nonreactive) 10/19/19 14:20 ARABELLA Screen Negative (Negative) 10/14/19 10:56 Proteinase 3 (PR3) Ab <1.0 AI (<1.0) 10/14/19 10:56 Myeloperoxidase Ab <1.0 AI (<1.0) 10/14/19 10:56 Complement C3 101 mg/dL () 10/14/19 10:56 Complement C4 43 mg/dL () 10/14/19 10:56 Syphilis IgG Antibody Reactive (NonReactive) A 10/15/19 14:53 RPR Titer 1:2 10/18/19 Unknown Coronavirus (PCR) Negative (Negative) 10/11/19 11:14 Hepatitis A IgM Ab Non-reactive (NonReactive) 10/15/19 20:27 Hep Bs Antigen Reactive (Negative) 10/15/19 20:27 Hep B Core IgM Ab Non-reactive (NonReactive) 10/15/19 20:27 Hepatitis C Antibody Non-reactive (NonReactive) 10/15/19 20:27 HIV 1&2 Antibody Rapid Non react (Non React) 10/14/19 10:56 HIV P24 Antigen Non react (Non React) 10/14/19 10:56 Influenza A (Rapid) Negative (Negative) 10/10/19 22:25 Influenza B (Rapid) Negative (Negative) 10/10/19 22:25 Schistocytes Smear None seen 10/14/19 10:56 Blood Type B POSITIVE 10/21/19 06:38 Antibody Screen Negative 10/21/19 06:38 Crossmatch See Detail 10/21/19 06:38 - Diagnostic Impressions Diagnostic Impressions: Echocardiogram 10/12/19 09:05 Transthoracic Echocardiogram Indication: Afib, HTN BP: 135/78 HR: 115 Conclusions *Global left ventricular systolic function is moderately decreased. *The estimated ejection fraction is 35-40%, but optimal assessment is limited by irregular heart rate. *Mild concentric left ventricular hypertrophy is observed. *The left and right atria are both severely dilated. *There is mild aortic regurgitation. *There is trace-mild mitral regurgitation. *There is moderate tricuspid regurgitation. *There is evidence of mild pulmonary hypertension. *The right ventricular systolic pressure is calculated at 28 mmHg. Findings Left Ventricle: The left ventricular chamber size is mildly dilated. Mild concentric left ventricular hypertrophy is observed. Global left ventricular systolic function is moderately decreased. The estimated ejection fraction is 35-40%. Left Atrium: The left atrium is severely dilated. Right Ventricle: The right ventricle is slightly dilated. Right Atrium: The right atrium is moderate to severely dilated. Aortic Valve: The aortic valve is trileaflet. The aortic valve leaflets are moderately thickened. There is mild aortic regurgitation. There is no evidence of aortic stenosis. Mitral Valve: The mitral valve leaflets are mildly thickened. There is trace of mitral regurgitation. There is no evidence of mitral stenosis. Tricuspid Valve: There is moderate tricuspid regurgitation. The right ventricular systolic pressure is calculated at 28 mmHg. There is evidence of mild pulmonary hypertension. Pulmonic Valve: There is mild pulmonic regurgitation. Pericardium: There is no pericardial effusion. Aorta: There is no dilatation of the aortic root. Venous: The inferior vena cava appears normal in size. Measurements Chambers 2D Name Value Normal Range IVSd (2D) 1.27 cm (0.6 - 1.1) LVPWd (2D) 1.06 cm (0.6 - 1.1) LVIDd (2D) 4.06 cm (3.7 - 5.6) LVIDs (2D) 2.91 cm (2 - 3.8) LV FS (2D) 28.16 % - EF Teichholz (2D) 54.96 % - Ao root diameter (2D) 2.83 cm (2 - 3.7) Volumes/Mass Name Value Normal Range LA ESV SP 4CH (A/L) 74.63 ml - LA ESV SP 2CH (A/L) 67.89 ml - LA ESV BP (A/L) 81.32 ml - LA ESV BP (A/L) index 54.21 ml/m2 - LA ESV SP 4CH (MOD) 65.06 ml - LA ESV SP 2CH (MOD) 65.08 ml - LA ESV BP (MOD) 74.22 ml - LA ESV BP (MOD) index 49.48 ml/m2 - LV EDV SP 4CH (MOD) 46.88 ml - LV ESV SP 4CH (MOD) 14.91 ml - EF SP 4CH (MOD) 68.19 % - LV EDV SP 2CH (MOD) 26.53 ml - LV ESV SP 2CH (MOD) 11.71 ml - EF SP 2CH (MOD) 55.86 % - LV EDV BP 37.95 ml - LV ESV BP 13.85 ml - BP EF (MOD) 63.51 % - Diastolic/Systolic Function Name Value Normal Range MV E-wave Vmax 0.8 m/sec - MV deceleration time 145.29 msec - Aortic Valve Name Value Normal Range AV Vmax 0.79 m/sec - AV VTI 9.87 cm - AV peak gradient 2.5 mmHg - AV mean gradient 0.94 mmHg - LVOT diameter 2.12 cm - LVOT Vmax 0.69 m/sec - LVOT VTI 12.18 cm - LVOT peak gradient 1.93 mmHg - LVOT mean gradient 1.04 mmHg - SV LVOT 42.84 ml - YAMILA (continuity Vmax) 3.08 cm2 - YAMILA (continuity VTI) 4.34 cm2 - AR PHT 498.2 msec - AR peak gradient 55.86 mmHg - Tricuspid Valve Name Value Normal Range TR Vmax 2.52 m/sec - TR peak gradient 25.41 mmHg - RAP 3 mmHg - RVSP 28 mmHg - Pulmonic Valve/Qp:Qs Name Value Normal Range PV Vmax 0.74 m/sec - PV VTI 10.83 cm - PV peak gradient 2.2 mmHg - PV mean gradient 1.08 mmHg - VT end-diastolic Vmax 1.28 m/sec - RVOT Vmax 0.01 m/sec - RVOT VTI 11.04 cm - RVOT peak gradient 2.38 mmHg - Miranda/IV: Voiding Method Diaper IV Catheter Type [Left Upper Peripheral IV arm] IV Catheter Type [Left Hand] Peripheral IV IV Catheter Type [Right VAS Cath Internal Jugular] IV Catheter Type [Left Forearm Peripheral IV ] IV Catheter Type [Right INT / Saline Lock Forearm] Active Medications - Current Medications Current Medications: Generic Name Dose Route Start Last Admin Trade Name Freq PRN Reason Stop Dose Admin Acetaminophen 650 mg 10/11/19 02:03 Tylenol PO Q4H PRN Pain MILD(1-3)/Fever >100.5/ANNE Lipase/Protease/Amylase 1 each 10/25/19 14:[address] 10,500 Unit FEEDTUBE PRN PRN For Clogged Feeding Tube Hydralazine HCl 5 mg 10/11/19 08:00 Apresoline IV Q30MIN PRN Hypertension Hydralazine HCl 25 mg 10/21/19 15:00 10/28/19 05:28 Apresoline PO 25 mg Q8HR NETO Administration Sodium Chloride 100 mls @ 999 mls/hr 10/27/19 11:00 Nacl 0.9% IV EMILIE PRN Hypotension Isosorbide Dinitrate/Hydralazine 1 each 10/13/19 14:00 10/28/19 05:28 Bidil 20/37.5mg PO 1 each Q8HR NETO Administration Labetalol HCl 10 mg 10/11/19 13:00 10/18/19 04:10 Labetalol IV 10 mg Q4H PRN Administration Hypertension Metoprolol Tartrate 50 mg 10/11/19 10:00 10/28/19 10:33 Metoprolol PO 50 mg BID NETO Administration Ondansetron HCl 4 mg 10/11/19 02:03 Zofran IV Q8H PRN Nausea And Vomiting Pantoprazole Sodium 40 mg 10/24/19 10:00 10/28/19 10:33 Protonix PO 40 mg DAILY NETO Administration Simple Syrup 15 ml 10/25/19 14:06 Simple Syrup FEEDTUBE PRN PRN Hypoglycemia Simple Syrup 30 ml 10/25/19 14:06 Simple Syrup FEEDTUBE PRN PRN Hypoglycemia Sodium Bicarbonate 325 mg 10/25/19 14:06 Sodium Bicarbonate FEEDTUBE PRN PRN For Clogged Feeding Tube Sodium Chloride 10 ml 10/11/19 10:00 10/28/19 10:33 Sodium Chloride Flush Syringe 10 Ml IV 10 ml BID NETO Administration Sodium Chloride 10 ml 10/11/19 02:03 Sodium Chloride Flush Syringe 10 Ml IV PRN PRN LINE FLUSH Nutrition/Malnutrition Assess - Dietary Evaluation Nutrition/Malnutrition Findings: Nutrition Notes Start: 10/11/19 13:24 Freq: Status: Active Protocol: Document 10/27/19 09:15 LP (Rec: 10/27/19 09:20 LP [id number]) Nutrition Notes Initial or Follow up Reassessment Current Diagnosis Acute Kidney Injury, Hypertension Other Pertinent Diagnosis on HD, dehydration, Afib, AMS Current Diet Nepro at 40ml/hr Labs/Tests Reviewed Pertinent Medications Reviewed Height 5 ft 6 in Weight 49.1 kg [place] Body Weight (kg) 64.54 BMI 17.4 Weight Status Underweight Subjective/Other Information Pt tolerating TF at goal rate. Pt with possible PEG placement pending family decsion. Percent of energy/protein needs met: 100%/100% Burn Absent Trauma Absent Current % PO Negligible Minimum of two criteria No Energy Intake (non-severe) <75% Estimated Energy Requirement >7 days #1 Nutrition Diagnosis Inadequate oral intake Diagnosis Progress(for reassessment Continues documentation) Is patient on ventilator? No Is Patient Ambulatory and/or Out of Bed No REE-([facility]-confined to bed) 1361.880 Kcal/Kg value to use for calculation 35 Approximate Energy Requirements Using 1719 kcal/Kg Calculation Used for Recommendations Kcal/kg Additional Notes Protein: >59g (>1.2g/kg) Fluid: per MD Nutrition Intervention Change Diet Order: TF Nutrition Support: Nepro 1.8 at 40ml/hr Flush 130ml q4h Kcal 1,728 Protein (gm) 78 Fluid (mL) 698 Goal #1 Meet at least 80% of kcal and protein needs Anticipated Discharge Needs: unable to determine at this time Follow-Up By: 10/31/19 Additional Comments Follow for stable TF
[2019-10-29 04:57] LABS: Calcium 9.1 mg/dL (8.4-10.2)
[2019-10-29] MEDS: ISOSORB DINIT/HYDRALAZINE 20-37.5MG TAB PO SCH ×3 (05:17→22:16)
[2019-10-29] MEDS: hydrALAZINE 25 MG TAB PO SCH ×3 (05:17→22:16)
--- NOTE | 2019-10-29 08:05 | Progress Note ---
Assessment and Plan Assessment and plan: Toxic metabolic encephalopathy. Treat underlying causes SIRS No obvious infection Chest x-ray negative, CT of the abdomen showed some mild nonspecific inflammation near the distal aorta. ID following A. fib with RVR, status post conversion DC heparin drip, patient thrombocytopenic cardiology following Acute metabolic encephalopathy altered mental status,confusion Anemia. Type and cross and transfuse 2 units PRBCs. Melena. GI consulted Chronic hepatitis B. hepatitis B surface antigen positive. LFTs not elevated. Hypertension uncontrolled Start IV hydralazine, Nitropaste, monitor PRIMO due to ATN Nephrology following Hypernatremia Nephrology following Hypokalemia replace as needed Thrombocytopenia hematology following manager inspection for possible placement DVT prophylaxis with SCDs only because of low platelets 10/15/19 patient with acute kidney injury due to ATN. Slight improvement. Cr 3.[address] Oliveira, hematology for low plaletels but he says he does not work here anymore. called and updated daughter on [phone] 10/16/19 patient presented with alterd mental status,nausea,vomiting. Found to have PRIMO due to ATN, thrombocytopenia. Cr worsening. Discussed with Nephrology yesterday. Plan to initiate dialysis if he gets worse. labs show Syphilis IgG antibody positive. ID to evaluate. 10/17/2019. Follow-up hepatitis B PCR. Check MRI of brain. Follow-up RPR with titer to determine active syphilis. 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 If mental status does not improve consider LP. 10/18/2019. Neurology evaluated the patient and diagnosed with metabolic encephalopathy with etiology likely secondary to hypertensive urgency, A-fib w/ RVR, ARF requiring HD, SIRS, hypernatremia, lactic acidosis, and leukocytosis. ID team investigating for possible syphilis. As patient was not found to have an infectious source as of yet, agree with ID that MRI brain would aid in further investigating potential of meningo-encephalitis, and to rule out any intracranial pathology contributing to current mental status. If patient's mental status does not continue to improve as metabolic/infectious abnormalities are corrected, then will consider LP/CSF studies. 10/19/2019. Neurology evaluated the patient and diagnosed with metabolic encephalopathy with etiology likely secondary to hypertensive urgency, A-fib w/ RVR, ARF requiring HD, SIRS, hypernatremia, lactic acidosis, and leukocytosis. CT head: Lt. frontal white matter hypodensity, age indeterminant. MRI Brain: right temporal area of diffusion restriction, which may be T2 shine-through vs. post-ictal change vs. encephalitis. Unlikely to be infarct, however can not be completely ruled out, given patient has A-fib. Echo: EF 35-40%, LA severely dilated. EEG pending. 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 Follow-up lumbar puncture. 10/20/19. ?meningitis ?neurosyphilis. ID to rule out neurosyphilis, HSV encephalitis. MRI brain shows small area of diffusion signal abnormality in the anterolateral cortex on the right. CSF studies pending. Continue acyclovir 500 mg IV daily per ID. From kidney perspective, the patient cont to be anuric, likely will need permcath placement Wednesday and outpatient dialysis if no improvement in PRIMO, will try to hold HD during the weekend if possible. LDH cont to be elevated, hematology consult is not available, [id number] requested on 10/18. Secondary GN work up was negative except for HBVsag and RPR, ID is following. With regards to atrial fibrillation, patient remains on metoprolol for rate control. Pt has been deemed to be a poor candidate for fdc anticoagulation given overall frailty and thrombocytopenia. 10/21/2019. Patient noted to have anemia this morning and reports of melena per nursing. Patient will receive 2 units PRBCs and follow-up H&H. GI consultation pending. Stop aspirin. Protonix drip. CSF not consistent with meningitis/encephalitis. Acyclovir has been discontinued by ID. Patient with metabolic encephalopathy secondary to renal failure. Patient with acute renal failure likely ischemic ATN from hypotension. Patient continues to be anuric and will likely need PermCath placement Wednesday and outpatient dialysis if no improvement in PRIMO, will try to hold HD during the weekend if possible per nephrology recommendation. Neurology following. 10/22/2019. EGD revealed 1.5 cm duodenal bulb ulcer. Continue to follow H&H and transfuse for hemoglobin less than 7. Patient with metabolic encephalopathy secondary to renal failure. Patient with acute renal failure likely ischemic ATN from hypotension. Patient continues to be anuric and will likely need PermCath placement Wednesday and outpatient dialysis if no improvement in PRIMO. 10/23/2019. EGD revealed 1.5 cm duodenal bulb ulcer. Continue to follow H&H and transfuse for hemoglobin less than 7. Patient with metabolic encephalopathy secondary to renal failure. Patient with acute renal failure likely ischemic ATN from hypotension. Per nephrology, patient continues to be anuric and will likely have PermCath placement today and outpatient dialysis if no improvement in PRIMO. 10/24/2019 Patient is 84 yo with acute kidney injury due to ATN, therefore started on hemodialysis. manager inspection to arrange outpatient dialysis. Patient also had GI bleed. I discussed with Dr. Barth. He recommends Dobhoff tube. I discussed with Nurse,orders placed. 10/25/2019 Patient with acute kidney injury due to ATN, started on hemodialysis. Dobhoff tube placed as recommended by GI Physician. No fever. 10/26/2019 Patient with acute kidney injury due to ATN, started on hemodialysis. Dobhoff tube placed as recommended by GI Physician. Still not eating much. 10/27/2019 Patient with acute kidney injury due to ATN, started on hemodialysis. Dobhoff tube placed as recommended by GI Physician. Still not eating much. I discussed with ISRAEL Raymond. Patient will need PEG. I called son, did not answer. Will call again later today. 10/28/2019 Patient with acute kidney injury due to ATN, started on hemodialysis. Dobhoff tube placed as recommended by GI Physician. Still not eating much. I discussed with ISRAEL Raymond. Patient will need PEG. I called Elsie joyner, yesterday 10/27/19, discussed with him that patient may need PEG tube in few days if still not eating. 10/29/2019 Patient with acute kidney injury due to ATN, started on hemodialysis. Dobhoff tube placed as recommended by GI Physician. Still not eating much. I discussed with ISRAEL Raymond. Patient will need PEG. I called Elsie joyner, 10/27/19, discussed with him that patient may need PEG tube in few days if still not eating. Will call son again tomorrow. History Interval history: Patient with failure to thrive with afib,presented with nausea, vomiting altered mental status Diagnosed with acute kidney injury, started on dialysis Dobhoff tube placed Hospitalist Physical - Physical exam Narrative exam: GEN: Not in acute distress, malnourished HEENT: Normocephalic, atraumatic, Neck: supple, No JVD Lungs: Clear to auscultation bilaterally, heart;S1 and S2 reg, no murmurs, rubs or gallop Abd:soft, non tender, non distended, normal bowel sounds, Ext: No edema, no clubbing, no cyanosis, Neuro: Awake,alert, confused - Constitutional Vitals: Temp Pulse Resp BP Pulse Ox 97.6 F 70 16 138/68 98 10/29/19 03:48 10/29/19 06:00 10/29/19 03:48 10/29/19 05:17 10/29/19 03:48 General appearance: Present: no acute distress HEART Score - HEART Score Troponin: Troponin T 0.024 ng/mL (0.00-0.029) 10/10/19 21:40 Results - Labs CBC & Chem 7: 10/25/19 05:17 10/29/19 04:17 Labs: Laboratory Last Values WBC 10.5 K/mm3 (4.5-11.0) 10/25/19 05:17 RBC 2.92 M/mm3 (3.65-5.03) L 10/25/19 05:17 Hgb 9.3 gm/dl (11.8-15.2) L 10/25/19 05:17 Hct 26.9 % (35.5-45.6) L 10/25/19 05:17 MCV 92 fl (84-94) 10/25/19 05:17 MCH 32 pg (28-32) 10/25/19 05:17 MCHC 34 % (32-34) 10/25/19 05:17 RDW 18.9 % (13.2-15.2) H 10/25/19 05:17 Plt Count 123 K/mm3 (140-440) L 10/25/19 05:17 Lymph % (Auto) 9.0 % (13.4-35.0) L 10/23/19 06:52 [place] % (Auto) 6.5 % (0.0-7.3) 10/23/19 06:52 Eos % (Auto) 0.9 % (0.0-4.3) 10/23/19 06:52 Baso % (Auto) 0.3 % (0.0-1.8) 10/23/19 06:52 Lymph # 1.3 K/mm3 (1.2-5.4) 10/23/19 06:52 [place] # 0.9 K/mm3 (0.0-0.8) H 10/23/19 06:52 Eos # 0.1 K/mm3 (0.0-0.4) 10/23/19 06:52 Baso # 0.0 K/mm3 (0.0-0.1) 10/23/19 06:52 Add Manual Diff Complete 10/11/19 04:42 Total Counted 100 10/11/19 04:42 Seg Neutrophils % 83.3 % (40.0-70.0) H 10/23/19 06:52 Seg Neuts % (Manual) 93.0 % (40.0-70.0) H 10/11/19 04:42 Band Neutrophils % 1.0 % 10/11/19 04:42 Lymphocytes % (Manual) 2.0 % (13.4-35.0) L 10/11/19 04:42 Reactive Lymphs % (Man) 0 % 10/11/19 04:42 Monocytes % (Manual) 4.0 % (0.0-7.3) 10/11/19 04:42 Eosinophils % (Manual) 0 % (0.0-4.3) 10/11/19 04:42 Basophils % (Manual) 0 % (0.0-1.8) 10/11/19 04:42 Metamyelocytes % 0 % 10/11/19 04:42 Myelocytes % 0 % 10/11/19 04:42 Promyelocytes % 0 % 10/11/19 04:42 Blast Cells % 0 % 10/11/19 04:42 Nucleated RBC % Not Reportable 10/11/19 04:42 Seg Neutrophils # 11.6 K/mm3 (1.8-7.7) H 10/23/19 06:52 Seg Neutrophils # Man 14.8 K/mm3 (1.8-7.7) H 10/11/19 04:42 Band Neutrophils # 0.2 K/mm3 10/11/19 04:42 Lymphocytes # (Manual) 0.3 K/mm3 (1.2-5.4) L 10/11/19 04:42 Abs React Lymphs (Man) 0.0 K/mm3 10/11/19 04:42 Monocytes # (Manual) 0.6 K/mm3 (0.0-0.8) 10/11/19 04:42 Eosinophils # (Manual) 0.0 K/mm3 (0.0-0.4) 10/11/19 04:42 Basophils # (Manual) 0.0 K/mm3 (0.0-0.1) 10/11/19 04:42 Metamyelocytes # 0.0 K/mm3 10/11/19 04:42 Myelocytes # 0.0 K/mm3 10/11/19 04:42 Promyelocytes # 0.0 K/mm3 10/11/19 04:42 Blast Cells # 0.0 K/mm3 10/11/19 04:42 WBC Morphology Not Reportable 10/11/19 04:42 Hypersegmented Neuts Not Reportable 10/11/19 04:42 Hyposegmented Neuts Not Reportable 10/11/19 04:42 Hypogranular Neuts Not Reportable 10/11/19 04:42 Smudge Cells Not Reportable 10/11/19 04:42 Toxic Granulation Not Reportable 10/11/19 04:42 Toxic Vacuolation Not Reportable 10/11/19 04:42 Dohle Bodies Not Reportable 10/11/19 04:42 Pelger-Huet Anomaly Not Reportable 10/11/19 04:42 Glenys Rods Not Reportable 10/11/19 04:42 Platelet Estimate Consistent w auto 10/11/19 04:42 Clumped Platelets Not Reportable 10/11/19 04:42 Plt Clumps, EDTA Not Reportable 10/11/19 04:42 Large Platelets Not Reportable 10/11/19 04:42 Giant Platelets Not Reportable 10/11/19 04:42 Platelet Satelliting Not Reportable 10/11/19 04:42 Plt Morphology Comment Not Reportable 10/11/19 04:42 RBC Morphology Not Reportable 10/11/19 04:42 Dimorphic RBCs Not Reportable 10/11/19 04:42 Polychromasia Not Reportable 10/11/19 04:42 Hypochromasia Not Reportable 10/11/19 04:42 Poikilocytosis Not Reportable 10/11/19 04:42 Anisocytosis Not Reportable 10/11/19 04:42 Microcytosis Not Reportable 10/11/19 04:42 Macrocytosis Not Reportable 10/11/19 04:42 Spherocytes Not Reportable 10/11/19 04:42 Pappenheimer Bodies Not Reportable 10/11/19 04:42 Sickle Cells Not Reportable 10/11/19 04:42 Target Cells Not Reportable 10/11/19 04:42 Tear Drop Cells Not Reportable 10/11/19 04:42 Ovalocytes Not Reportable 10/11/19 04:42 Helmet Cells Not Reportable 10/11/19 04:42 [place] Bodies Not Reportable 10/11/19 04:42 Clifford Rings Not Reportable 10/11/19 04:42 Paula Cells Not Reportable 10/11/19 04:42 Bite Cells Not Reportable 10/11/19 04:42 Crenated Cell Not Reportable 10/11/19 04:42 Elliptocytes Rare 10/11/19 04:42 Acanthocytes (Spur) Not Reportable 10/11/19 04:42 Rouleaux Not Reportable 10/11/19 04:42 Hemoglobin C Crystals Not Reportable 10/11/19 04:42 Schistocytes Not Reportable 10/11/19 04:42 Malaria parasites Not Reportable 10/11/19 04:42 Robin Bodies Not Reportable 10/11/19 04:42 Hem Pathologist Commnt No 10/11/19 04:42 PT 14.7 Sec. (12.2-14.9) 10/19/19 08:00 INR 1.14 (0.87-1.13) H 10/19/19 08:00 APTT 34.3 Sec. (24.2-36.6) 10/19/19 08:00 Sodium 134 mmol/L (137-145) L 10/29/19 04:17 Potassium 3.6 mmol/L (3.6-5.0) 10/29/19 04:17 Chloride 96.6 mmol/L (98-107) L 10/29/19 04:17 Carbon Dioxide 25 mmol/L (22-30) 10/29/19 04:17 Anion Gap 16 mmol/L 10/29/19 04:17 BUN 49 mg/dL (9-20) H 10/29/19 04:17 Creatinine 2.3 mg/dL (0.8-1.5) H 10/29/19 04:17 Estimated GFR 27 ml/min 10/29/19 04:17 BUN/Creatinine Ratio 21 % 10/29/19 04:17 Glucose 125 mg/dL (75-100) H 10/29/19 04:17 POC Glucose 119 (70-105) H 10/29/19 00:12 Lactic Acid 3.20 mmol/L (0.7-2.0) H* 10/10/19 23:04 Calcium 9.1 mg/dL (8.4-10.2) 10/29/19 04:17 Phosphorus 4.40 mg/dL (2.5-4.5) D 10/25/19 05:17 Magnesium 1.80 mg/dL (1.7-2.3) 10/24/19 08:36 Total Bilirubin 2.50 mg/dL (0.1-1.2) H 10/10/19 21:40 AST 39 units/L (5-40) 10/10/19 21:40 ALT 22 units/L (7-56) 10/10/19 21:40 Alkaline Phosphatase 102 units/L (35-129) 10/10/19 21:40 Ammonia 54.0 umol/L (25-60) 10/10/19 21:40 Lactate Dehydrogenase 401 units/L (91-180) H 10/19/19 05:22 Total Creatine Kinase 563 units/L (55-170) H 10/14/19 10:56 Troponin T 0.024 ng/mL (0.00-0.029) 10/10/19 21:40 Serum Total Protein 5.4 g/dL (6.1-8.1) L 10/15/19 08:46 Total Protein 7.6 g/dL (6.3-8.2) 10/10/19 21:40 Albumin 2.7 g/dL (3.8-4.8) L 10/15/19 08:46 Albumin/Globulin Ratio 1.2 % 10/10/19 21:40 Rtmzj-1-Jnknpsbtf 0.5 g/dL (0.2-0.3) H 10/15/19 08:46 Mmzai-9-Tlcxxvgap 0.9 g/dL (0.5-0.9) 10/15/19 08:46 Beta Globulins 0.3 g/dL (0.2-0.5) 10/15/19 08:46 Gamma Globulins 0.7 g/dL (0.8-1.7) L 10/15/19 08:46 Abnorm Protein Band 1 see below 10/15/19 08:46 PEP Interpretation see below H 10/15/19 08:46 TSH 2.550 mlU/mL (0.270-4.200) 10/10/19 21:40 Urine Color Yellow (Yellow) 10/10/19 23:18 Urine Turbidity Clear (Clear) 10/10/19 23:18 Urine pH 6.0 (5.0-7.0) 10/10/19 23:18 Ur Specific [place] 1.015 (1.003-1.030) 10/10/19 23:18 Urine Protein 300 mg/dl mg/dL (Negative) 10/10/19 23:18 Urine Glucose (UA) 50 mg/dL (Negative) 10/10/19 23:18 Urine Ketones Neg mg/dL (Negative) 10/10/19 23:18 Urine Blood Sm (Negative) 10/10/19 23:18 Urine Nitrite Neg (Negative) 10/10/19 23:18 Urine Bilirubin Neg (Negative) 10/10/19 23:18 Urine Urobilinogen < 2.0 mg/dL (<2.0) 10/10/19 23:18 Ur Leukocyte Esterase Neg (Negative) 10/10/19 23:18 Urine WBC (Auto) 1.0 /HPF (0.0-6.0) 10/10/19 23:18 Urine RBC (Auto) 9.0 /HPF (0.0-6.0) 10/10/19 23:18 U Epithel Cells (Auto) < 1.0 /HPF (0-13.0) 10/10/19 23:18 Urine Bacteria (Auto) 1+ /HPF (Negative) 10/10/19 23:18 Hyaline Casts 6 /LPF 10/10/19 23:18 Urine Mucus Few /HPF 10/10/19 23:18 Urine Total Volume 500 ml 10/24/19 22:00 Urine Creatinine 69.2 mg/dL (0.1-20.0) H 10/24/19 22:00 Ur Creatinine 24 Hour 0.3 (0.8-2.8) L 10/24/19 22:00 Height (in) 66.0 inches 10/24/19 22:00 Weight (lb) 108.2 lbs 10/24/19 22:00 Creatinine Clearance 11 10/24/19 22:00 CSF Appearance Clear 10/19/19 14:20 CSF Color Colorless 10/19/19 14:20 CSF WBC 4 /mm3 (1-10) 10/19/19 14:20 CSF RBC 3 /mm3 (0-0) 10/19/19 14: CSF Seg Neutrophils 2.0 % (0-6) 10/19/19 14:20 CSF Lymphocytes % 50.0 % (40-80) 10/19/19 14:20 CSF Reactive Lymphs 0 % 10/19/19 14: CSF Monocytes % 48.0 % (15-45) 10/19/19 14: CSF Eosinophils % 0 % 10/19/19 14: CSF Basophils 0 % 10/19/19 14:20 CSF Pathologist Review C 10/19/19 14:20 CSF Glucose 48 mg/dL 10/19/19 14:20 CSF Total Protein 65 mg/dL 10/19/19 14:20 CSF VDRL Nonreactive (Nonreactive) 10/19/19 14:20 ARABELLA Screen Negative (Negative) 10/14/19 10:56 Proteinase 3 (PR3) Ab <1.0 AI (<1.0) 10/14/19 10:56 Myeloperoxidase Ab <1.0 AI (<1.0) 10/14/19 10:56 Complement C3 101 mg/dL () 10/14/19 10:56 Complement C4 43 mg/dL () 10/14/19 10:56 Syphilis IgG Antibody Reactive (NonReactive) A 10/15/19 14:53 RPR Titer 1:2 10/18/19 Unknown Coronavirus (PCR) Negative (Negative) 10/11/19 11:14 Hepatitis A IgM Ab Non-reactive (NonReactive) 10/15/19 20:27 Hep Bs Antigen Reactive (Negative) 10/15/19 20:27 Hep B Core IgM Ab Non-reactive (NonReactive) 10/15/19 20:27 Hepatitis C Antibody Non-reactive (NonReactive) 10/15/19 20:27 HIV 1&2 Antibody Rapid Non react (Non React) 10/14/19 10:56 HIV P24 Antigen Non react (Non React) 10/14/19 10:56 Influenza A (Rapid) Negative (Negative) 10/10/19 22:25 Influenza B (Rapid) Negative (Negative) 10/10/19 22:25 Schistocytes Smear None seen 10/14/19 10:56 Blood Type B POSITIVE 10/21/19 06:38 Antibody Screen Negative 10/21/19 06:38 Crossmatch See Detail 10/21/19 06:38 - Diagnostic Impressions Diagnostic Impressions: Echocardiogram 10/12/19 09:05 Transthoracic Echocardiogram Indication: Afib, HTN BP: 135/78 HR: 115 Conclusions *Global left ventricular systolic function is moderately decreased. *The estimated ejection fraction is 35-40%, but optimal assessment is limited by irregular heart rate. *Mild concentric left ventricular hypertrophy is observed. *The left and right atria are both severely dilated. *There is mild aortic regurgitation. *There is trace-mild mitral regurgitation. *There is moderate tricuspid regurgitation. *There is evidence of mild pulmonary hypertension. *The right ventricular systolic pressure is calculated at 28 mmHg. Findings Left Ventricle: The left ventricular chamber size is mildly dilated. Mild concentric left ventricular hypertrophy is observed. Global left ventricular systolic function is moderately decreased. The estimated ejection fraction is 35-40%. Left Atrium: The left atrium is severely dilated. Right Ventricle: The right ventricle is slightly dilated. Right Atrium: The right atrium is moderate to severely dilated. Aortic Valve: The aortic valve is trileaflet. The aortic valve leaflets are moderately thickened. There is mild aortic regurgitation. There is no evidence of aortic stenosis. Mitral Valve: The mitral valve leaflets are mildly thickened. There is trace of mitral regurgitation. There is no evidence of mitral stenosis. Tricuspid Valve: There is moderate tricuspid regurgitation. The right ventricular systolic pressure is calculated at 28 mmHg. There is evidence of mild pulmonary hypertension. Pulmonic Valve: There is mild pulmonic regurgitation. Pericardium: There is no pericardial effusion. Aorta: There is no dilatation of the aortic root. Venous: The inferior vena cava appears normal in size. Measurements Chambers 2D Name Value Normal Range IVSd (2D) 1.27 cm (0.6 - 1.1) LVPWd (2D) 1.06 cm (0.6 - 1.1) LVIDd (2D) 4.06 cm (3.7 - 5.6) LVIDs (2D) 2.91 cm (2 - 3.8) LV FS (2D) 28.16 % - EF Teichholz (2D) 54.96 % - Ao root diameter (2D) 2.83 cm (2 - 3.7) Volumes/Mass Name Value Normal Range LA ESV SP 4CH (A/L) 74.63 ml - LA ESV SP 2CH (A/L) 67.89 ml - LA ESV BP (A/L) 81.32 ml - LA ESV BP (A/L) index 54.21 ml/m2 - LA ESV SP 4CH (MOD) 65.06 ml - LA ESV SP 2CH (MOD) 65.08 ml - LA ESV BP (MOD) 74.22 ml - LA ESV BP (MOD) index 49.48 ml/m2 - LV EDV SP 4CH (MOD) 46.88 ml - LV ESV SP 4CH (MOD) 14.91 ml - EF SP 4CH (MOD) 68.19 % - LV EDV SP 2CH (MOD) 26.53 ml - LV ESV SP 2CH (MOD) 11.71 ml - EF SP 2CH (MOD) 55.86 % - LV EDV BP 37.95 ml - LV ESV BP 13.85 ml - BP EF (MOD) 63.51 % - Diastolic/Systolic Function Name Value Normal Range MV E-wave Vmax 0.8 m/sec - MV deceleration time 145.29 msec - Aortic Valve Name Value Normal Range AV Vmax 0.79 m/sec - AV VTI 9.87 cm - AV peak gradient 2.5 mmHg - AV mean gradient 0.94 mmHg - LVOT diameter 2.12 cm - LVOT Vmax 0.69 m/sec - LVOT VTI 12.18 cm - LVOT peak gradient 1.93 mmHg - LVOT mean gradient 1.04 mmHg - SV LVOT 42.84 ml - YAMILA (continuity Vmax) 3.08 cm2 - YAMILA (continuity VTI) 4.34 cm2 - AR PHT 498.2 msec - AR peak gradient 55.86 mmHg - Tricuspid Valve Name Value Normal Range TR Vmax 2.52 m/sec - TR peak gradient 25.41 mmHg - RAP 3 mmHg - RVSP 28 mmHg - Pulmonic Valve/Qp:Qs Name Value Normal Range PV Vmax 0.74 m/sec - PV VTI 10.83 cm - PV peak gradient 2.2 mmHg - PV mean gradient 1.08 mmHg - ID end-diastolic Vmax 1.28 m/sec - RVOT Vmax 0.01 m/sec - RVOT VTI 11.04 cm - RVOT peak gradient 2.38 mmHg - Miranda/IV: Voiding Method Incontinent IV Catheter Type [Left Upper Peripheral IV arm] IV Catheter Type [Left Hand] Peripheral IV IV Catheter Type [Right VAS Cath Internal Jugular] IV Catheter Type [Left Forearm Peripheral IV ] IV Catheter Type [Right INT / Saline Lock Forearm] Active Medications - Current Medications Current Medications: Generic Name Dose Route Start Last Admin Trade Name Freq PRN Reason Stop Dose Admin Acetaminophen 650 mg 10/11/19 02:03 Tylenol PO Q4H PRN Pain MILD(1-3)/Fever >100.5/ANNE Lipase/Protease/Amylase 1 each 10/25/19 14:06 Pancreazrandy Nuñez 10,500 Unit FEEDTUBE PRN PRN For Clogged Feeding Tube Hydralazine HCl 5 mg 10/11/19 08:00 Apresoline IV Q30MIN PRN Hypertension Hydralazine HCl 25 mg 10/21/19 15:00 10/29/19 05:17 Apresoline PO 25 mg Q8HR NETO Administration Sodium Chloride 100 mls @ 999 mls/hr 10/27/19 11:00 Nacl 0.9% IV EMILIE PRN Hypotension Isosorbide Dinitrate/Hydralazine 1 each 10/13/19 14:00 10/29/19 05:17 Bidil 20/37.5mg PO 1 each Q8HR NETO Administration Labetalol HCl 10 mg 10/11/19 13:00 10/18/19 04:10 Labetalol IV 10 mg Q4H PRN Administration Hypertension Metoprolol Tartrate 50 mg 10/11/19 10:00 10/28/19 21:13 Metoprolol PO 50 mg BID NETO Administration Ondansetron HCl 4 mg 10/11/19 02:03 Zofran IV Q8H PRN Nausea And Vomiting Pantoprazole Sodium 40 mg 10/24/19 10:00 10/28/19 10:33 Protonix PO 40 mg DAILY NETO Administration Simple Syrup 15 ml 10/25/19 14:06 Simple Syrup FEEDTUBE PRN PRN Hypoglycemia Simple Syrup 30 ml 10/25/19 14:06 Simple Syrup FEEDTUBE PRN PRN Hypoglycemia Sodium Bicarbonate 325 mg 10/25/19 14:06 Sodium Bicarbonate FEEDTUBE PRN PRN For Clogged Feeding Tube Sodium Chloride 10 ml 10/11/19 10:00 10/28/19 21:13 Sodium Chloride Flush Syringe 10 Ml IV 10 ml BID NETO Administration Sodium Chloride 10 ml 10/11/19 02:03 Sodium Chloride Flush Syringe 10 Ml IV PRN PRN LINE FLUSH Nutrition/Malnutrition Assess - Dietary Evaluation Nutrition/Malnutrition Findings: Nutrition Notes Start: 10/11/19 13:24 Freq: Status: Active Protocol: Document 10/27/19 09:15 LP (Rec: 10/27/19 09:20 LP [id number]) Nutrition Notes Initial or Follow up Reassessment Current Diagnosis Acute Kidney Injury, Hypertension Other Pertinent Diagnosis on HD, dehydration, Afib, AMS Current Diet Nepro at 40ml/hr Labs/Tests Reviewed Pertinent Medications Reviewed Height 5 ft 6 in Weight 49.1 kg [place] Body Weight (kg) 64.54 BMI 17.4 Weight Status Underweight Subjective/Other Information Pt tolerating TF at goal rate. Pt with possible PEG placement pending family decsion. Percent of energy/protein needs met: 100%/100% Burn Absent Trauma Absent Current % PO Negligible Minimum of two criteria No Energy Intake (non-severe) <75% Estimated Energy Requirement >7 days #1 Nutrition Diagnosis Inadequate oral intake Diagnosis Progress(for reassessment Continues documentation) Is patient on ventilator? No Is Patient Ambulatory and/or Out of Bed No REE-([facility]-confined to bed) 1361.880 Kcal/Kg value to use for calculation 35 Approximate Energy Requirements Using 1719 kcal/Kg Calculation Used for Recommendations Kcal/kg Additional Notes Protein: >59g (>1.2g/kg) Fluid: per MD Nutrition Intervention Change Diet Order: TF Nutrition Support: Nepro 1.8 at 40ml/hr Flush 130ml q4h Kcal 1,728 Protein (gm) 78 Fluid (mL) 698 Goal #1 Meet at least 80% of kcal and protein needs Anticipated Discharge Needs: unable to determine at this time Follow-Up By: 10/31/19 Additional Comments Follow for stable TF
--- NOTE | 2019-10-29 09:42 | Progress Note ---
Assessment and Plan 1. Chronic combined systolic and diastolic heart failure 2. Dilated cardiomyopathy left ventricular ejection fraction 35 to 40% 3. Essential hypertension 4. Acute on chronic renal failure currently on hemodialysis 5. Metabolic encephalopathy 6. Anemia and thrombocytopenia 7. Atrial fibrillation with a controlled ventricular response Plan. Conservative cardiac management patient is not a candidate for invasive cardiac management. Anticoagulation on hold secondary to hematologic abnormalities especially anemia. Subjective Date of service: 10/29/19 Principal diagnosis: Metabolic Encephalopathy Interval history: No change in mental status noncommunicative Objective Vital Signs Temp Pulse Pulse Resp BP Pulse Ox 10/29/19 06:00 70 10/29/19 05:17 138/68 10/29/19 03:48 97.6 F 62 16 138/68 98 10/28/19 23:55 98.1 F 66 18 138/59 99 10/28/19 20:01 97.4 F L 68 18 114/67 100 10/28/19 12:29 98.0 F 118/69 10/28/19 10:00 74 74 - Physical Examination General: No Apparent Distress, Cachectic HEENT: Positive: PERRL Neck: Positive: neck supple, trachea midline. Negative: JVD/HJR Cardiac: Positive: Regular Rate, S1/S2, S3, PMI, Dilated, Laterally Displaced Lungs: Positive: clear to auscultation, No Wheeze, Rales, Rhonchi Neuro: Positive: Weakness, Other (no verbal or communicative ) Abdomen: Positive: Soft, Active Bowel Sounds Skin: Positive: Clear Extremities: Absent: edema - Labs and Meds Comprehensive Metabolic Panel 10/29/19 Range/Units 04:17 Sodium 134 L (137-145) mmol/L Potassium 3.6 (3.6-5.0) mmol/L Chloride 96.6 L (98-107) mmol/L Carbon Dioxide 25 (22-30) mmol/L BUN 49 H (9-20) mg/dL Creatinine 2.3 H (0.8-1.5) mg/dL Glucose 125 H (75-100) mg/dL Calcium 9.1 (8.4-10.2) mg/dL
[2019-10-29] MEDS: PANTOPRAZOLE 40 MG TAB PO SCH (10:17)
[2019-10-29] MEDS: METOPROLOL TARTRATE 50 MG TAB PO SCH ×2 (10:17→22:16)
--- NOTE | 2019-10-29 16:22 | Progress Note ---
Assessment and Plan Assessment: Acute renal failure, possible ischemic ATN from low BP, also possible TTP/HUS Sepsis Afib with RVR Hypotension Thrombocytopenia Hypokalemia, Resolved Plan: Hemodialysis tomorrow via perm-catheter Creatinine clearance noted to be 11 ml/min ARABELLA, ANCA, SPEP, C3, C4, Anti-GBM, SPEP, urine eosinophils-negative Secondary GN work up was negative except for HBVsag and RPR, ID is following [id number] Replete potassium as needed Strict I&O monitoring Obtain daily weights Renally dose medications Avoid nephrotoxic agents Monitor electrolytes and renal function closely Consulted CM (spoke to Merary today) for outpatient HD placement arrangement to [facility] Awaiting PEG tube placement, family to make decision Subjective Date of service: 10/29/19 Principal diagnosis: Metabolic Encephalopathy Interval history: Patient seen lying in bed. No new events noted Objective - Vital Signs Vital signs: Vital Signs - 12hr 10/29/19 10/29/19 10/29/19 05:17 06:00 10:00 Temperature Pulse Rate 70 62 Pulse Rate [ 62 Apical] Respiratory Rate Blood Pressure 138/68 10/29/19 11:33 Temperature 97.5 F L Pulse Rate Pulse Rate [ Apical] Respiratory 18 Rate Blood Pressure 122/62 - General Appearance General appearance: fatigue EENT: ATNC, PERRL Neck: no JVD, supple Respiratory: Present: Decreased Breath Sounds Cardiology: S1S2 Gastrointestinal: normoactive bowel sounds Integumentary: warm and dry Neurologic: other (Resting) Musculoskeletal: other (No edema) - Lab 10/25/19 05:17 10/29/19 04:17 Most recent lab results Calcium 9.1 mg/dL (8.4-10.2) 10/29/19 04:17 Phosphorus 4.40 mg/dL (2.5-4.5) D 10/25/19 05:17 Magnesium 1.80 mg/dL (1.7-2.3) 10/24/19 08:36 Urine Creatinine 69.2 mg/dL (0.1-20.0) H 10/24/19 22:00 Medications & Allergies - Medications Allergies/Adverse Reactions: Allergies No Known Allergies Allergy (Unverified 10/10/19 21:31) Home Medications: Home Medications Medication Instructions Recorded Confirmed Last Taken Type Metoprolol 50 mg PO BID 10/10/19 10/18/19 Unknown History Active Medications: Generic Name Dose Route Start Last Admin Trade Name Freq PRN Reason Stop Dose Admin Acetaminophen 650 mg 10/11/19 02:03 Tylenol PO Q4H PRN Pain MILD(1-3)/Fever >100.5/ANNE Lipase/Protease/Amylase 1 each 10/25/19 14:06 Pancreeli Nuñez 10,500 Unit FEEDTUBE PRN PRN For Clogged Feeding Tube Hydralazine HCl 5 mg 10/11/19 08:00 Apresoline IV Q30MIN PRN Hypertension Hydralazine HCl 25 mg 10/21/19 15:00 10/29/19 15:04 Apresoline PO 25 mg Q8HR NETO Administration Sodium Chloride 100 mls @ 999 mls/hr 10/27/19 11:00 Nacl 0.9% IV EMILIE PRN Hypotension Isosorbide Dinitrate/Hydralazine 1 each 10/13/19 14:00 10/29/19 15:05 Bidil 20/37.5mg PO 1 each Q8HR NETO Administration Labetalol HCl 10 mg 10/11/19 13:00 10/18/19 04:10 Labetalol IV 10 mg Q4H PRN Administration Hypertension Metoprolol Tartrate 50 mg 10/11/19 10:00 10/29/19 10:17 Metoprolol PO 50 mg BID NETO Administration Ondansetron HCl 4 mg 10/11/19 02:03 Zofran IV Q8H PRN Nausea And Vomiting Pantoprazole Sodium 40 mg 10/24/19 10:00 10/29/19 10:17 Protonix PO 40 mg DAILY NETO Administration Simple Syrup 15 ml 10/25/19 14:06 Simple Syrup FEEDTUBE PRN PRN Hypoglycemia Simple Syrup 30 ml 10/25/19 14:06 Simple Syrup FEEDTUBE PRN PRN Hypoglycemia Sodium Bicarbonate 325 mg 10/25/19 14:06 Sodium Bicarbonate FEEDTUBE PRN PRN For Clogged Feeding Tube Sodium Chloride 10 ml 10/11/19 10:00 10/29/19 10:18 Sodium Chloride Flush Syringe 10 Ml IV 10 ml BID NETO Administration Sodium Chloride 10 ml 10/11/19 02:03 Sodium Chloride Flush Syringe 10 Ml IV PRN PRN LINE FLUSH
[2019-10-30] MEDS: ISOSORB DINIT/HYDRALAZINE 20-37.5MG TAB PO SCH ×4 (04:28→22:46)
[2019-10-30] MEDS: hydrALAZINE 25 MG TAB PO SCH ×4 (04:29→22:46)
[2019-10-30 05:49] LABS: Calcium 9.3 mg/dL (8.4-10.2)
--- NOTE | 2019-10-30 07:58 | Progress Note ---
Assessment and Plan Assessment: Acute renal failure, possible ischemic ATN from low BP, also possible TTP/HUS, now requiring initiation of HD Sepsis Afib with RVR Hypotension Thrombocytopenia Chronic Hepatitis B with + HBsAg Hypokalemia Chronic systolic and diastolic CHF Plan: HD today for gentle UF and clearance via Right IJ perm catheter HD prescription adjusted to 3K bath and higher calcium bath Assess need for HD on daily basis 24 hr Creatinine clearance was 11 ml/min on 10/24/19 S/p Right IJ Perm Catheter placement on 10/27/[address] Howell ARABELLA, ANCA, SPEP, C3, C4, Anti-GBM, SPEP, urine eosinophils-> negative Secondary GN work up was negative except for HBsAg and RPR, ID is following [id number] Awaiting PEG tube placement, family to make decision Strict I&O Renally dose medications Consulted CM for outpatient HD placement to [facility] Renal plan d/w Dr Gonzalez Subjective Date of service: 10/30/19 Principal diagnosis: Metabolic Encephalopathy Interval history: Pt seen in bed, lethargic, no acute distress Objective - Vital Signs Vital signs: Vital Signs - 12hr 10/29/19 10/30/19 23:13 04:55 Temperature 98.2 F 97.5 F L Pulse Rate 60 80 Respiratory 20 18 Rate Blood Pressure 108/55 144/88 O2 Sat by Pulse 97 98 Oximetry - General Appearance General appearance: other (lethargic) EENT: ATNC Neck: no JVD Respiratory: Present: Decreased Breath Sounds Cardiology: regular, S1S2 Gastrointestinal: other (Dobhoff tube in place) Integumentary: warm and dry Neurologic: other (lethargic) Musculoskeletal: other (no edema to BLE) - Lab 10/25/19 05:17 10/30/19 05:19 Most recent lab results Calcium 9.3 mg/dL (8.4-10.2) 10/30/19 05:19 Phosphorus 4.40 mg/dL (2.5-4.5) D 10/25/19 05:17 Magnesium 1.80 mg/dL (1.7-2.3) 10/24/19 08:36 Urine Creatinine 69.2 mg/dL (0.1-20.0) H 10/24/19 22:00 Medications & Allergies - Medications Allergies/Adverse Reactions: Allergies No Known Allergies Allergy (Unverified 10/10/19 21:31) Home Medications: Home Medications Medication Instructions Recorded Confirmed Last Taken Type Metoprolol 50 mg PO BID 10/10/19 10/18/19 Unknown History Active Medications: Generic Name Dose Route Start Last Admin Trade Name Freq PRN Reason Stop Dose Admin Acetaminophen 650 mg 10/11/19 02:03 Tylenol PO Q4H PRN Pain MILD(1-3)/Fever >100.5/ANNE Lipase/Protease/Amylase 1 each 10/25/19 14:06 Pancreeli Nuñez 10,500 Unit FEEDTUBE PRN PRN For Clogged Feeding Tube Hydralazine HCl 5 mg 10/11/19 08:00 Apresoline IV Q30MIN PRN Hypertension Hydralazine HCl 25 mg 10/21/19 15:00 10/30/19 06:34 Apresoline PO Not Given Q8HR NETO Sodium Chloride 100 mls @ 999 mls/hr 10/27/19 11:00 Nacl 0.9% IV EMILIE PRN Hypotension Isosorbide Dinitrate/Hydralazine 1 each 10/13/19 14:00 10/30/19 06:34 Bidil 20/37.5mg PO Not Given Q8HR NETO Labetalol HCl 10 mg 10/11/19 13:00 10/18/19 04:10 Labetalol IV 10 mg Q4H PRN Administration Hypertension Metoprolol Tartrate 50 mg 10/11/19 10:00 10/29/19 22:16 Metoprolol PO 50 mg BID NETO Administration Ondansetron HCl 4 mg 10/11/19 02:03 Zofran IV Q8H PRN Nausea And Vomiting Pantoprazole Sodium 40 mg 10/24/19 10:00 10/29/19 10:17 Protonix PO 40 mg DAILY NETO Administration Simple Syrup 15 ml 10/25/19 14:06 Simple Syrup FEEDTUBE PRN PRN Hypoglycemia Simple Syrup 30 ml 10/25/19 14:06 Simple Syrup FEEDTUBE PRN PRN Hypoglycemia Sodium Bicarbonate 325 mg 10/25/19 14:06 Sodium Bicarbonate FEEDTUBE PRN PRN For Clogged Feeding Tube Sodium Chloride 10 ml 10/11/19 10:00 10/29/19 22:16 Sodium Chloride Flush Syringe 10 Ml IV 10 ml BID NETO Administration Sodium Chloride 10 ml 05/06/20 02:03 Sodium Chloride Flush Syringe 10 Ml IV PRN PRN LINE FLUSH
--- NOTE | 2019-10-30 09:30 | Progress Note ---
Assessment and Plan Assessment and plan: Toxic metabolic encephalopathy. Treat underlying causes SIRS No obvious infection Chest x-ray negative, CT of the abdomen showed some mild nonspecific inflammation near the distal aorta. ID following A. fib with RVR, status post conversion DC heparin drip, patient thrombocytopenic cardiology following Acute metabolic encephalopathy altered mental status,confusion Anemia. Type and cross and transfuse 2 units PRBCs. Melena. GI consulted Chronic hepatitis B. hepatitis B surface antigen positive. LFTs not elevated. Hypertension uncontrolled Start IV hydralazine, Nitropaste, monitor PRIMO due to ATN Nephrology following Hypernatremia Nephrology following Hypokalemia replace as needed Thrombocytopenia hematology following regional branch manager for possible placement DVT prophylaxis with SCDs only because of low platelets 10/15/19 patient with acute kidney injury due to ATN. Slight improvement. Cr 3.[address] Oliveira, hematology for low plaletels but he says he does not work here anymore. called and updated daughter on [phone] 10/16/19 patient presented with alterd mental status,nausea,vomiting. Found to have PRIMO due to ATN, thrombocytopenia. Cr worsening. Discussed with Nephrology yesterday. Plan to initiate dialysis if he gets worse. labs show Syphilis IgG antibody positive. ID to evaluate. 10/17/2019. Follow-up hepatitis B PCR. Check MRI of brain. Follow-up RPR with titer to determine active syphilis. 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 If mental status does not improve consider LP. 10/18/2019. Neurology evaluated the patient and diagnosed with metabolic encephalopathy with etiology likely secondary to hypertensive urgency, A-fib w/ RVR, ARF requiring HD, SIRS, hypernatremia, lactic acidosis, and leukocytosis. ID team investigating for possible syphilis. As patient was not found to have an infectious source as of yet, agree with ID that MRI brain would aid in further investigating potential of meningo-encephalitis, and to rule out any intracranial pathology contributing to current mental status. If patient's mental status does not continue to improve as metabolic/infectious abnormalities are corrected, then will consider LP/CSF studies. 10/19/2019. Neurology evaluated the patient and diagnosed with metabolic encephalopathy with etiology likely secondary to hypertensive urgency, A-fib w/ RVR, ARF requiring HD, SIRS, hypernatremia, lactic acidosis, and leukocytosis. CT head: Lt. frontal white matter hypodensity, age indeterminant. MRI Brain: right temporal area of diffusion restriction, which may be T2 shine-through vs. post-ictal change vs. encephalitis. Unlikely to be infarct, however can not be completely ruled out, given patient has A-fib. Echo: EF 35-40%, LA severely dilated. EEG pending. 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 Follow-up lumbar puncture. 10/20/19. ?meningitis ?neurosyphilis. ID to rule out neurosyphilis, HSV encephalitis. MRI brain shows small area of diffusion signal abnormality in the anterolateral cortex on the right. CSF studies pending. Continue acyclovir 500 mg IV daily per ID. From kidney perspective, the patient cont to be anuric, likely will need permcath placement Wednesday and outpatient dialysis if no improvement in PRIMO, will try to hold HD during the weekend if possible. LDH cont to be elevated, hematology consult is not available, [id number] requested on 10/18. Secondary GN work up was negative except for HBVsag and RPR, ID is following. With regards to atrial fibrillation, patient remains on metoprolol for rate control. Pt has been deemed to be a poor candidate for jail anticoagulation given overall frailty and thrombocytopenia. 10/21/2019. Patient noted to have anemia this morning and reports of melena per nursing. Patient will receive 2 units PRBCs and follow-up H&H. GI consultation pending. Stop aspirin. Protonix drip. CSF not consistent with meningitis/encephalitis. Acyclovir has been discontinued by ID. Patient with metabolic encephalopathy secondary to renal failure. Patient with acute renal failure likely ischemic ATN from hypotension. Patient continues to be anuric and will likely need PermCath placement Wednesday and outpatient dialysis if no improvement in PRIMO, will try to hold HD during the weekend if possible per nephrology recommendation. Neurology following. 10/22/2019. EGD revealed 1.5 cm duodenal bulb ulcer. Continue to follow H&H and transfuse for hemoglobin less than 7. Patient with metabolic encephalopathy secondary to renal failure. Patient with acute renal failure likely ischemic ATN from hypotension. Patient continues to be anuric and will likely need PermCath placement Wednesday and outpatient dialysis if no improvement in PRIMO. 10/23/2019. EGD revealed 1.5 cm duodenal bulb ulcer. Continue to follow H&H and transfuse for hemoglobin less than 7. Patient with metabolic encephalopathy secondary to renal failure. Patient with acute renal failure likely ischemic ATN from hypotension. Per nephrology, patient continues to be anuric and will likely have PermCath placement today and outpatient dialysis if no improvement in PRIMO. 10/24/2019 Patient is 84 yo with acute kidney injury due to ATN, therefore started on hemodialysis. regional branch manager to arrange outpatient dialysis. Patient also had GI bleed. I discussed with Dr. Barth. He recommends Dobhoff tube. I discussed with Nurse,orders placed. 10/25/2019 Patient with acute kidney injury due to ATN, started on hemodialysis. Dobhoff tube placed as recommended by GI Physician. No fever. 10/26/2019 Patient with acute kidney injury due to ATN, started on hemodialysis. Dobhoff tube placed as recommended by GI Physician. Still not eating much. 10/27/2019 Patient with acute kidney injury due to ATN, started on hemodialysis. Dobhoff tube placed as recommended by GI Physician. Still not eating much. I discussed with ISRAEL Raymond. Patient will need PEG. I called son, did not answer. Will call again later today. 10/28/2019 Patient with acute kidney injury due to ATN, started on hemodialysis. Dobhoff tube placed as recommended by GI Physician. Still not eating much. I discussed with ISRAEL Raymond. Patient will need PEG. I called Elsie joyner, yesterday 10/27/19, discussed with him that patient may need PEG tube in few days if still not eating. 10/29/2019 Patient with acute kidney injury due to ATN, started on hemodialysis. Dobhoff tube placed as recommended by GI Physician. Still not eating much. I discussed with ISRAEL Raymond. Patient will need PEG. I called Elsie joyner, 10/27/19, discussed with him that patient may need PEG tube in few days if still not eating. Will call son again tomorrow. 10/29/2019 Patient with acute kidney injury due to ATN, started on hemodialysis. Dobhoff tube placed as recommended by GI Physician. Still not eating much. I discussed with ISRAEL Raymond. Patient will need PEG. I called Elsie joyner, 10/27/19, discussed with him that patient may need PEG tube in few days if still not eating. Will call son again later today. History Interval history: Patient with failure to thrive with afib,presented with nausea, vomiting altered mental status Diagnosed with acute kidney injury, started on dialysis Dobhoff tube placed Hospitalist Physical - Physical exam Narrative exam: GEN: Not in acute distress, malnourished HEENT: Normocephalic, atraumatic, Neck: supple, No JVD Lungs: Clear to auscultation bilaterally, heart;S1 and S2 reg, no murmurs, rubs or gallop Abd:soft, non tender, non distended, normal bowel sounds, Ext: No edema, no clubbing, no cyanosis, Neuro: Awake,alert, confused - Constitutional Vitals: Temp Pulse Resp BP Pulse Ox 97.6 F 77 16 114/66 100 10/30/19 07:57 10/30/19 07:57 10/30/19 07:57 10/30/19 07:57 10/30/19 07:57 General appearance: Present: no acute distress HEART Score - HEART Score Troponin: Troponin T 0.024 ng/mL (0.00-0.029) 10/10/19 21:40 Results - Labs CBC & Chem 7: 10/25/19 05:17 10/30/19 05:19 Labs: Laboratory Last Values WBC 10.5 K/mm3 (4.5-11.0) 10/25/19 05:17 RBC 2.92 M/mm3 (3.65-5.03) L 10/25/19 05:17 Hgb 9.3 gm/dl (11.8-15.2) L 10/25/19 05:17 Hct 26.9 % (35.5-45.6) L 10/25/19 05:17 MCV 92 fl (84-94) 10/25/19 05:17 MCH 32 pg (28-32) 10/25/19 05:17 MCHC 34 % (32-34) 10/25/19 05:17 RDW 18.9 % (13.2-15.2) H 10/25/19 05:17 Plt Count 123 K/mm3 (140-440) L 10/25/19 05:17 Lymph % (Auto) 9.0 % (13.4-35.0) L 10/23/19 06:52 [place] % (Auto) 6.5 % (0.0-7.3) 10/23/19 06:52 Eos % (Auto) 0.9 % (0.0-4.3) 10/23/19 06:52 Baso % (Auto) 0.3 % (0.0-1.8) 10/23/19 06:52 Lymph # 1.3 K/mm3 (1.2-5.4) 10/23/19 06:52 [place] # 0.9 K/mm3 (0.0-0.8) H 10/23/19 06:52 Eos # 0.1 K/mm3 (0.0-0.4) 10/23/19 06:52 Baso # 0.0 K/mm3 (0.0-0.1) 10/23/19 06:52 Add Manual Diff Complete 10/11/19 04:42 Total Counted 100 10/11/19 04:42 Seg Neutrophils % 83.3 % (40.0-70.0) H 10/23/19 06:52 Seg Neuts % (Manual) 93.0 % (40.0-70.0) H 10/11/19 04:42 Band Neutrophils % 1.0 % 10/11/19 04:42 Lymphocytes % (Manual) 2.0 % (13.4-35.0) L 10/11/19 04:42 Reactive Lymphs % (Man) 0 % 10/11/19 04:42 Monocytes % (Manual) 4.0 % (0.0-7.3) 10/11/19 04:42 Eosinophils % (Manual) 0 % (0.0-4.3) 10/11/19 04:42 Basophils % (Manual) 0 % (0.0-1.8) 10/11/19 04:42 Metamyelocytes % 0 % 10/11/19 04:42 Myelocytes % 0 % 10/11/19 04:42 Promyelocytes % 0 % 10/11/19 04:42 Blast Cells % 0 % 10/11/19 04:42 Nucleated RBC % Not Reportable 10/11/19 04:42 Seg Neutrophils # 11.6 K/mm3 (1.8-7.7) H 10/23/19 06:52 Seg Neutrophils # Man 14.8 K/mm3 (1.8-7.7) H 10/11/19 04:42 Band Neutrophils # 0.2 K/mm3 10/11/19 04:42 Lymphocytes # (Manual) 0.3 K/mm3 (1.2-5.4) L 10/11/19 04:42 Abs React Lymphs (Man) 0.0 K/mm3 10/11/19 04:42 Monocytes # (Manual) 0.6 K/mm3 (0.0-0.8) 10/11/19 04:42 Eosinophils # (Manual) 0.0 K/mm3 (0.0-0.4) 10/11/19 04:42 Basophils # (Manual) 0.0 K/mm3 (0.0-0.1) 10/11/19 04:42 Metamyelocytes # 0.0 K/mm3 10/11/19 04:42 Myelocytes # 0.0 K/mm3 10/11/19 04:42 Promyelocytes # 0.0 K/mm3 10/11/19 04:42 Blast Cells # 0.0 K/mm3 10/11/19 04:42 WBC Morphology Not Reportable 10/11/19 04:42 Hypersegmented Neuts Not Reportable 10/11/19 04:42 Hyposegmented Neuts Not Reportable 10/11/19 04:42 Hypogranular Neuts Not Reportable 10/11/19 04:42 Smudge Cells Not Reportable 10/11/19 04:42 Toxic Granulation Not Reportable 10/11/19 04:42 Toxic Vacuolation Not Reportable 10/11/19 04:42 Dohle Bodies Not Reportable 10/11/19 04:42 Pelger-Huet Anomaly Not Reportable 10/11/19 04:42 Glenys Rods Not Reportable 10/11/19 04:42 Platelet Estimate Consistent w auto 10/11/19 04:42 Clumped Platelets Not Reportable 10/11/19 04:42 Plt Clumps, EDTA Not Reportable 10/11/19 04:42 Large Platelets Not Reportable 10/11/19 04:42 Giant Platelets Not Reportable 10/11/19 04:42 Platelet Satelliting Not Reportable 10/11/19 04:42 Plt Morphology Comment Not Reportable 10/11/19 04:42 RBC Morphology Not Reportable 10/11/19 04:42 Dimorphic RBCs Not Reportable 10/11/19 04:42 Polychromasia Not Reportable 10/11/19 04:42 Hypochromasia Not Reportable 10/11/19 04:42 Poikilocytosis Not Reportable 10/11/19 04:42 Anisocytosis Not Reportable 10/11/19 04:42 Microcytosis Not Reportable 10/11/19 04:42 Macrocytosis Not Reportable 10/11/19 04:42 Spherocytes Not Reportable 10/11/19 04:42 Pappenheimer Bodies Not Reportable 10/11/19 04:42 Sickle Cells Not Reportable 10/11/19 04:42 Target Cells Not Reportable 10/11/19 04:42 Tear Drop Cells Not Reportable 10/11/19 04:42 Ovalocytes Not Reportable 10/11/19 04:42 Helmet Cells Not Reportable 10/11/19 04:42 [place] Bodies Not Reportable 10/11/19 04:42 Moore Rings Not Reportable 10/11/19 04:42 [place] Cells Not Reportable 10/11/19 04:42 Bite Cells Not Reportable 10/11/19 04:42 Crenated Cell Not Reportable 10/11/19 04:42 Elliptocytes Rare 10/11/19 04:42 Acanthocytes (Spur) Not Reportable 10/11/19 04:42 Rouleaux Not Reportable 10/11/19 04:42 Hemoglobin C Crystals Not Reportable 10/11/19 04:42 Schistocytes Not Reportable 10/11/19 04:42 Malaria parasites Not Reportable 10/11/19 04:42 Robin Bodies Not Reportable 10/11/19 04:42 Hem Pathologist Commnt No 10/11/19 04:42 PT 14.7 Sec. (12.2-14.9) 10/19/19 08:00 INR 1.14 (0.87-1.13) H 10/19/19 08:00 APTT 34.3 Sec. (24.2-36.6) 10/19/19 08:00 Sodium 137 mmol/L (137-145) 10/30/19 05:19 Potassium 3.7 mmol/L (3.6-5.0) 10/30/19 05:19 Chloride 98.0 mmol/L (98-107) 10/30/19 05:19 Carbon Dioxide 27 mmol/L (22-30) 10/30/19 05:19 Anion Gap 16 mmol/L 10/30/19 05:19 BUN 62 mg/dL (9-20) H 10/30/19 05:19 Creatinine 2.5 mg/dL (0.8-1.5) H 10/30/19 05:19 Estimated GFR 25 ml/min 10/30/19 05:19 BUN/Creatinine Ratio 25 % 10/30/19 05:19 Glucose 136 mg/dL (75-100) H 10/30/19 05:19 POC Glucose 112 (70-105) H 10/29/19 17:57 Lactic Acid 3.20 mmol/L (0.7-2.0) H* 10/10/19 23:04 Calcium 9.3 mg/dL (8.4-10.2) 10/30/19 05:19 Phosphorus 4.40 mg/dL (2.5-4.5) D 10/25/19 05:17 Magnesium 1.80 mg/dL (1.7-2.3) 10/24/19 08:36 Total Bilirubin 2.50 mg/dL (0.1-1.2) H 10/10/19 21:40 AST 39 units/L (5-40) 10/10/19 21:40 ALT 22 units/L (7-56) 10/10/19 21:40 Alkaline Phosphatase 102 units/L (35-129) 10/10/19 21:40 Ammonia 54.0 umol/L (25-60) 10/10/19 21:40 Lactate Dehydrogenase 401 units/L (91-180) H 10/19/19 05:22 Total Creatine Kinase 563 units/L (55-170) H 10/14/19 10:56 Troponin T 0.024 ng/mL (0.00-0.029) 10/10/19 21:40 Serum Total Protein 5.4 g/dL (6.1-8.1) L 10/15/19 08:46 Total Protein 7.6 g/dL (6.3-8.2) 10/10/19 21:40 Albumin 2.7 g/dL (3.8-4.8) L 10/15/19 08:46 Albumin/Globulin Ratio 1.2 % 10/10/19 21:40 Taypi-3-Yfdielgzr 0.5 g/dL (0.2-0.3) H 10/15/19 08:46 Xjphj-5-Qnqpmdyps 0.9 g/dL (0.5-0.9) 10/15/19 08:46 Beta Globulins 0.3 g/dL (0.2-0.5) 10/15/19 08:46 Gamma Globulins 0.7 g/dL (0.8-1.7) L 10/15/19 08:46 Abnorm Protein Band 1 see below 10/15/19 08:46 PEP Interpretation see below H 10/15/19 08:46 TSH 2.550 mlU/mL (0.270-4.200) 10/10/19 21:40 Urine Color Yellow (Yellow) 10/10/19 23:18 Urine Turbidity Clear (Clear) 10/10/19 23:18 Urine pH 6.0 (5.0-7.0) 10/10/19 23:18 Ur Specific [place] 1.015 (1.003-1.030) 10/10/19 23:18 Urine Protein 300 mg/dl mg/dL (Negative) 10/10/19 23:18 Urine Glucose (UA) 50 mg/dL (Negative) 10/10/19 23:18 Urine Ketones Neg mg/dL (Negative) 10/10/19 23:18 Urine Blood Sm (Negative) 10/10/19 23:18 Urine Nitrite Neg (Negative) 10/10/19 23:18 Urine Bilirubin Neg (Negative) 10/10/19 23:18 Urine Urobilinogen < 2.0 mg/dL (<2.0) 10/10/19 23:18 Ur Leukocyte Esterase Neg (Negative) 10/10/19 23:18 Urine WBC (Auto) 1.0 /HPF (0.0-6.0) 10/10/19 23:18 Urine RBC (Auto) 9.0 /HPF (0.0-6.0) 10/10/19 23:18 U Epithel Cells (Auto) < 1.0 /HPF (0-13.0) 10/10/19 23:18 Urine Bacteria (Auto) 1+ /HPF (Negative) 10/10/19 23:18 Hyaline Casts 6 /LPF 05/05/20 23:18 Urine Mucus Few /HPF 10/10/19 23:18 Urine Total Volume 500 ml 10/24/19 22:00 Urine Creatinine 69.2 mg/dL (0.1-20.0) H 10/24/19 22:00 Ur Creatinine 24 Hour 0.3 (0.8-2.8) L 10/24/19 22:00 Height (in) 66.0 inches 10/24/19 22:00 Weight (lb) 108.2 lbs 10/24/19 22:00 Creatinine Clearance 11 10/24/19 22:00 CSF Appearance Clear 10/19/19 14:20 CSF Color Colorless 10/19/19 14:20 CSF WBC 4 /mm3 (1-10) 10/19/19 14: CSF RBC 3 /mm3 (0-0) 10/19/19 14:20 CSF Seg Neutrophils 2.0 % (0-6) 10/19/19 14:20 CSF Lymphocytes % 50.0 % (40-80) 10/19/19 14:20 CSF Reactive Lymphs 0 % 10/19/19 14:20 CSF Monocytes % 48.0 % (15-45) 10/19/19 14:20 CSF Eosinophils % 0 % 10/19/19 14:20 CSF Basophils 0 % 10/19/19 14:20 CSF Pathologist Review C 10/19/19 14:20 CSF Glucose 48 mg/dL 10/19/19 14:20 CSF Total Protein 65 mg/dL 10/19/19 14:20 CSF VDRL Nonreactive (Nonreactive) 10/19/19 14:20 ARABELLA Screen Negative (Negative) 10/14/19 10:56 Proteinase 3 (PR3) Ab <1.0 AI (<1.0) 10/14/19 10:56 Myeloperoxidase Ab <1.0 AI (<1.0) 10/14/19 10:56 Complement C3 101 mg/dL () 10/14/19 10:56 Complement C4 43 mg/dL () 10/14/19 10:56 Syphilis IgG Antibody Reactive (NonReactive) A 10/15/19 14:53 RPR Titer 1:2 10/18/19 Unknown Coronavirus (PCR) Negative (Negative) 10/11/19 11:14 Hepatitis A IgM Ab Non-reactive (NonReactive) 10/15/19 20:27 Hep Bs Antigen Reactive (Negative) 10/15/19 20:27 Hep B Core IgM Ab Non-reactive (NonReactive) 10/15/19 20:27 Hepatitis C Antibody Non-reactive (NonReactive) 10/15/19 20:27 HIV 1&2 Antibody Rapid Non react (Non React) 10/14/19 10:56 HIV P24 Antigen Non react (Non React) 10/14/19 10:56 Influenza A (Rapid) Negative (Negative) 10/10/19 22:25 Influenza B (Rapid) Negative (Negative) 10/10/19 22:25 Schistocytes Smear None seen 10/14/19 10:56 Blood Type B POSITIVE 10/21/19 06:38 Antibody Screen Negative 10/21/19 06:38 Crossmatch See Detail 10/21/19 06:38 - Diagnostic Impressions Diagnostic Impressions: Echocardiogram 10/12/19 09:05 Transthoracic Echocardiogram Indication: Afib, HTN BP: 135/78 HR: 115 Conclusions *Global left ventricular systolic function is moderately decreased. *The estimated ejection fraction is 35-40%, but optimal assessment is limited by irregular heart rate. *Mild concentric left ventricular hypertrophy is observed. *The left and right atria are both severely dilated. *There is mild aortic regurgitation. *There is trace-mild mitral regurgitation. *There is moderate tricuspid regurgitation. *There is evidence of mild pulmonary hypertension. *The right ventricular systolic pressure is calculated at 28 mmHg. Findings Left Ventricle: The left ventricular chamber size is mildly dilated. Mild concentric left ventricular hypertrophy is observed. Global left ventricular systolic function is moderately decreased. The estimated ejection fraction is 35-40%. Left Atrium: The left atrium is severely dilated. Right Ventricle: The right ventricle is slightly dilated. Right Atrium: The right atrium is moderate to severely dilated. Aortic Valve: The aortic valve is trileaflet. The aortic valve leaflets are moderately thickened. There is mild aortic regurgitation. There is no evidence of aortic stenosis. Mitral Valve: The mitral valve leaflets are mildly thickened. There is trace of mitral regurgitation. There is no evidence of mitral stenosis. Tricuspid Valve: There is moderate tricuspid regurgitation. The right ventricular systolic pressure is calculated at 28 mmHg. There is evidence of mild pulmonary hypertension. Pulmonic Valve: There is mild pulmonic regurgitation. Pericardium: There is no pericardial effusion. Aorta: There is no dilatation of the aortic root. Venous: The inferior vena cava appears normal in size. Measurements Chambers 2D Name Value Normal Range IVSd (2D) 1.27 cm (0.6 - 1.1) LVPWd (2D) 1.06 cm (0.6 - 1.1) LVIDd (2D) 4.06 cm (3.7 - 5.6) LVIDs (2D) 2.91 cm (2 - 3.8) LV FS (2D) 28.16 % - EF Teichholz (2D) 54.96 % - Ao root diameter (2D) 2.83 cm (2 - 3.7) Volumes/Mass Name Value Normal Range LA ESV SP 4CH (A/L) 74.63 ml - LA ESV SP 2CH (A/L) 67.89 ml - LA ESV BP (A/L) 81.32 ml - LA ESV BP (A/L) index 54.21 ml/m2 - LA ESV SP 4CH (MOD) 65.06 ml - LA ESV SP 2CH (MOD) 65.08 ml - LA ESV BP (MOD) 74.22 ml - LA ESV BP (MOD) index 49.48 ml/m2 - LV EDV SP 4CH (MOD) 46.88 ml - LV ESV SP 4CH (MOD) 14.91 ml - EF SP 4CH (MOD) 68.19 % - LV EDV SP 2CH (MOD) 26.53 ml - LV ESV SP 2CH (MOD) 11.71 ml - EF SP 2CH (MOD) 55.86 % - LV EDV BP 37.95 ml - LV ESV BP 13.85 ml - BP EF (MOD) 63.51 % - Diastolic/Systolic Function Name Value Normal Range MV E-wave Vmax 0.8 m/sec - MV deceleration time 145.29 msec - Aortic Valve Name Value Normal Range AV Vmax 0.79 m/sec - AV VTI 9.87 cm - AV peak gradient 2.5 mmHg - AV mean gradient 0.94 mmHg - LVOT diameter 2.12 cm - LVOT Vmax 0.69 m/sec - LVOT VTI 12.18 cm - LVOT peak gradient 1.93 mmHg - LVOT mean gradient 1.04 mmHg - SV LVOT 42.84 ml - YAMILA (continuity Vmax) 3.08 cm2 - YAMILA (continuity VTI) 4.34 cm2 - AR PHT 498.2 msec - AR peak gradient 55.86 mmHg - Tricuspid Valve Name Value Normal Range TR Vmax 2.52 m/sec - TR peak gradient 25.41 mmHg - RAP 3 mmHg - RVSP 28 mmHg - Pulmonic Valve/Qp:Qs Name Value Normal Range PV Vmax 0.74 m/sec - PV VTI 10.83 cm - PV peak gradient 2.2 mmHg - PV mean gradient 1.08 mmHg - OK end-diastolic Vmax 1.28 m/sec - RVOT Vmax 0.01 m/sec - RVOT VTI 11.04 cm - RVOT peak gradient 2.38 mmHg - Miranda/IV: Voiding Method Incontinent IV Catheter Type [Left Upper Peripheral IV arm] IV Catheter Type [Left Hand] Peripheral IV IV Catheter Type [Right VAS Cath Internal Jugular] IV Catheter Type [Left Forearm Peripheral IV ] IV Catheter Type [Right INT / Saline Lock Forearm] Active Medications - Current Medications Current Medications: Generic Name Dose Route Start Last Admin Trade Name Freq PRN Reason Stop Dose Admin Acetaminophen 650 mg 10/11/19 02:03 Tylenol PO Q4H PRN Pain MILD(1-3)/Fever >100.5/ANNE Lipase/Protease/Amylase 1 each 10/25/19 14:06 Pancreeli Nuñez 10,500 Unit FEEDTUBE PRN PRN For Clogged Feeding Tube Hydralazine HCl 5 mg 10/11/19 08:00 Apresoline IV Q30MIN PRN Hypertension Hydralazine HCl 25 mg 10/21/19 15:00 10/30/19 06:34 Apresoline PO Not Given Q8HR NETO Sodium Chloride 100 mls @ 999 mls/hr 10/27/19 11:00 Nacl 0.9% IV EMILIE PRN Hypotension Isosorbide Dinitrate/Hydralazine 1 each 10/13/19 14:00 10/30/19 06:34 Bidil 20/37.5mg PO Not Given Q8HR NETO Labetalol HCl 10 mg 10/11/19 13:00 10/18/19 04:10 Labetalol IV 10 mg Q4H PRN Administration Hypertension Metoprolol Tartrate 50 mg 10/11/19 10:00 10/29/19 22:16 Metoprolol PO 50 mg BID NETO Administration Ondansetron HCl 4 mg 10/11/19 02:03 Zofran IV Q8H PRN Nausea And Vomiting Pantoprazole Sodium 40 mg 10/24/19 10:00 10/29/19 10:17 Protonix PO 40 mg DAILY NETO Administration Simple Syrup 15 ml 10/25/19 14:06 Simple Syrup FEEDTUBE PRN PRN Hypoglycemia Simple Syrup 30 ml 10/25/19 14:06 Simple Syrup FEEDTUBE PRN PRN Hypoglycemia Sodium Bicarbonate 325 mg 10/25/19 14:06 Sodium Bicarbonate FEEDTUBE PRN PRN For Clogged Feeding Tube Sodium Chloride 10 ml 10/11/19 10:00 10/29/19 22:16 Sodium Chloride Flush Syringe 10 Ml IV 10 ml BID NETO Administration Sodium Chloride 10 ml 10/11/19 02:03 Sodium Chloride Flush Syringe 10 Ml IV PRN PRN LINE FLUSH Nutrition/Malnutrition Assess - Dietary Evaluation Nutrition/Malnutrition Findings: Nutrition Notes Start: 10/11/19 13:24 Freq: Status: Active Protocol: Document 10/27/19 09:15 LP (Rec: 10/27/19 09:20 LP [email or web address]) Nutrition Notes Initial or Follow up Reassessment Current Diagnosis Acute Kidney Injury, Hypertension Other Pertinent Diagnosis on HD, dehydration, Afib, AMS Current Diet Nepro at 40ml/hr Labs/Tests Reviewed Pertinent Medications Reviewed Height 5 ft 6 in Weight 49.1 kg [place] Body Weight (kg) 64.54 BMI 17.4 Weight Status Underweight Subjective/Other Information Pt tolerating TF at goal rate. Pt with possible PEG placement pending family decsion. Percent of energy/protein needs met: 100%/100% Burn Absent Trauma Absent Current % PO Negligible Minimum of two criteria No Energy Intake (non-severe) <75% Estimated Energy Requirement >7 days #1 Nutrition Diagnosis Inadequate oral intake Diagnosis Progress(for reassessment Continues documentation) Is patient on ventilator? No Is Patient Ambulatory and/or Out of Bed No REE-([facility]-confined to bed) 1361.880 Kcal/Kg value to use for calculation 35 Approximate Energy Requirements Using 1719 kcal/Kg Calculation Used for Recommendations Kcal/kg Additional Notes Protein: >59g (>1.2g/kg) Fluid: per MD Nutrition Intervention Change Diet Order: TF Nutrition Support: Nepro 1.8 at 40ml/hr Flush 130ml q4h Kcal 1,728 Protein (gm) 78 Fluid (mL) 698 Goal #1 Meet at least 80% of kcal and protein needs Anticipated Discharge Needs: unable to determine at this time Follow-Up By: 10/31/19 Additional Comments Follow for stable TF
--- NOTE | 2019-10-30 10:14 | Progress Note ---
Assessment and Plan 1. Chronic combined systolic and diastolic heart failure 2. Dilated cardiomyopathy left ventricular ejection fraction 35 to 40% 3. Essential hypertension 4. Acute on chronic renal failure currently on hemodialysis 5. Metabolic encephalopathy 6. Anemia and thrombocytopenia 7. Atrial fibrillation with a controlled ventricular response Plan. Conservative cardiac management patient is not a candidate for invasive cardiac management. Anticoagulation on hold secondary to hematologic abnormalities especially anemia. Subjective Date of service: 10/30/19 Principal diagnosis: Metabolic Encephalopathy Interval history: No change in mental status noncommunicative Objective Vital Signs Temp Pulse Resp BP BP Pulse Ox 10/30/19 07:57 97.6 F 77 16 114/66 100 10/30/19 04:55 97.5 F L 80 18 144/88 98 10/29/19 23:13 98.2 F 60 20 108/55 97 10/29/19 17:00 97.8 F 72 18 120/63 98 10/29/19 11:33 97.5 F L 18 122/62 - Physical Examination General: No Apparent Distress, Cachectic HEENT: Positive: PERRL Neck: Positive: neck supple, trachea midline. Negative: JVD/HJR Cardiac: Positive: Regular Rate, S1/S2, PMI, Dilated, Laterally Displaced. Negative: S3 Lungs: Positive: clear to auscultation, No Wheeze, Rales, Rhonchi Neuro: Positive: Weakness, Other (no verbal or communicative ) Abdomen: Positive: Soft, Active Bowel Sounds Skin: Positive: Clear Extremities: Absent: edema - Labs and Meds Comprehensive Metabolic Panel 10/30/19 Range/Units 05:19 Sodium 137 (137-145) mmol/L Potassium 3.7 (3.6-5.0) mmol/L Chloride 98.0 (98-107) mmol/L Carbon Dioxide 27 (22-30) mmol/L BUN 62 H (9-20) mg/dL Creatinine 2.5 H (0.8-1.5) mg/dL Glucose 136 H (75-100) mg/dL Calcium 9.3 (8.4-10.2) mg/dL
[2019-10-30] MEDS: PANTOPRAZOLE 40 MG TAB PO SCH (14:33)
[2019-10-30] MEDS: METOPROLOL TARTRATE 50 MG TAB PO SCH ×2 (14:33→22:46)
--- NOTE | 2019-10-30 15:24 | Event Note ---
Date: 10/30/19 Patient eating better, ate 75% lunch as per Nurse. If he eats dinner and breakfast tomorrow, may dc Dobhoff. May not need PEG tube. I called and updated son, Elsie stating Patient may not need PEG tube. Obtain PT eval.
[2019-10-31] MEDS: ISOSORB DINIT/HYDRALAZINE 20-37.5MG TAB PO SCH ×3 (06:08→21:39)
[2019-10-31] MEDS: hydrALAZINE 25 MG TAB PO SCH ×3 (06:08→21:39)
[2019-10-31 06:45] LABS: Calcium 9.9 mg/dL (8.4-10.2)
--- NOTE | 2019-10-31 09:04 | Progress Note ---
Assessment and Plan Acute renal failure, possible ischemic ATN from low BP, also possible TTP/HUS, now requiring initiation of HD Sepsis Afib with RVR Hypotension Thrombocytopenia Chronic Hepatitis B with + HBsAg Hypokalemia Chronic systolic and diastolic CHF Plan: no indication for HD today 24 hr Creatinine clearance was 11 ml/min on 10/24/19, will repeat while inpatient to assess renal recovery S/p Right IJ Perm Catheter placement on 10/27/[address] Howell ARABELLA, ANCA, SPEP, C3, C4, Anti-GBM, SPEP, urine eosinophils-> negative Secondary GN work up was negative except for HBsAg and RPR, ID is following [id number] Strict I&O Renally dose medications Subjective Date of service: 10/31/19 Principal diagnosis: Metabolic Encephalopathy Interval history: tolerated HD yesterday Objective - Vital Signs Vital signs: Vital Signs - 12hr 10/30/19 10/30/19 10/31/19 22:46 23:02 03:35 Temperature 97.9 F 98.2 F Pulse Rate 65 70 79 Respiratory 18 18 Rate Blood Pressure 126/69 147/69 132/78 O2 Sat by Pulse 100 97 Oximetry 10/31/19 10/31/19 06:08 08:31 Temperature 97.6 F Pulse Rate 76 Respiratory 18 Rate Blood Pressure 132/78 118/65 O2 Sat by Pulse 90 Oximetry - General Appearance General appearance: well-developed EENT: ATNC, PERRL Neck: no JVD, no carotid bruit Respiratory: Present: Clear to Ascultation Cardiology: regular Gastrointestinal: normoactive bowel sounds, no tenderness, no distended Integumentary: no rash, warm and dry Neurologic: no focal deficit Musculoskeletal: other (no edema in BLE) - Lab 10/25/19 05:17 10/31/19 06:12 Most recent lab results Calcium 9.9 mg/dL (8.4-10.2) 10/31/19 06:12 Phosphorus 4.40 mg/dL (2.5-4.5) D 10/25/19 05:17 Magnesium 1.80 mg/dL (1.7-2.3) 10/24/19 08:36 Urine Creatinine 69.2 mg/dL (0.1-20.0) H 10/24/19 22:00 Medications & Allergies - Medications Allergies/Adverse Reactions: Allergies No Known Allergies Allergy (Unverified 10/10/19 21:31) Home Medications: Home Medications Medication Instructions Recorded Confirmed Last Taken Type Metoprolol 50 mg PO BID 10/10/19 10/18/19 Unknown History Active Medications: Generic Name Dose Route Start Last Admin Trade Name Freq PRN Reason Stop Dose Admin Acetaminophen 650 mg 10/11/19 02:03 Tylenol PO Q4H PRN Pain MILD(1-3)/Fever >100.5/ANNE Lipase/Protease/Amylase 1 each 10/25/19 14:06 Pancreaze 10,500 Unit FEEDTUBE PRN PRN For Clogged Feeding Tube Hydralazine HCl 5 mg 10/11/19 08:00 Apresoline IV Q30MIN PRN Hypertension Hydralazine HCl 25 mg 10/21/19 15:00 10/31/19 06:08 Apresoline PO 25 mg Q8HR NETO Administration Sodium Chloride 100 mls @ 999 mls/hr 10/27/19 11:00 Nacl 0.9% IV EMILIE PRN Hypotension Isosorbide Dinitrate/Hydralazine 1 each 10/13/19 14:00 10/31/19 06:08 Bidil 20/37.5mg PO 1 each Q8HR NETO Administration Labetalol HCl 10 mg 10/11/19 13:00 10/18/19 04:10 Labetalol IV 10 mg Q4H PRN Administration Hypertension Metoprolol Tartrate 50 mg 10/11/19 10:00 10/30/19 22:46 Metoprolol PO 50 mg BID NETO Administration Ondansetron HCl 4 mg 10/11/19 02:03 Zofran IV Q8H PRN Nausea And Vomiting Pantoprazole Sodium 40 mg 10/24/19 10:00 10/30/19 14:33 Protonix PO 40 mg DAILY NETO Administration Simple Syrup 15 ml 10/25/19 14:06 Simple Syrup FEEDTUBE PRN PRN Hypoglycemia Simple Syrup 30 ml 10/25/19 14:06 Simple Syrup FEEDTUBE PRN PRN Hypoglycemia Sodium Bicarbonate 325 mg 10/25/19 14:06 Sodium Bicarbonate FEEDTUBE PRN PRN For Clogged Feeding Tube Sodium Chloride 10 ml 10/11/19 10:00 10/30/19 22:47 Sodium Chloride Flush Syringe 10 Ml IV 10 ml BID NETO Administration Sodium Chloride 10 ml 10/11/19 02:03 Sodium Chloride Flush Syringe 10 Ml IV PRN PRN LINE FLUSH
[2019-10-31] MEDS: METOPROLOL TARTRATE 50 MG TAB PO SCH ×2 (10:12→21:39)
[2019-10-31] MEDS: PANTOPRAZOLE 40 MG TAB PO SCH (10:12)
--- NOTE | 2019-10-31 11:09 | Progress Note ---
Assessment and Plan - Patient Problems (1) Atrial fibrillation Current Visit: Yes Status: Acute Plan to address problem: Continue rate control of AF. (2) Cardiomyopathy Current Visit: Yes Status: Acute Plan to address problem: GDMT for chronic systolic HF. Subjective Date of service: 10/31/19 Principal diagnosis: Metabolic Encephalopathy Interval history: Patient is comfortable, no new cardiac issues. Objective Vital Signs Temp Pulse Resp BP BP Pulse Ox 10/31/19 10:12 76 138/64 10/31/19 08:31 97.6 F 76 18 118/65 90 10/31/19 06:08 132/78 10/31/19 03:35 98.2 F 79 18 132/78 97 10/30/19 23:02 97.9 F 70 18 147/69 100 10/30/19 22:46 65 126/69 10/30/19 19:26 98.2 F 65 18 126/69 100 10/30/19 16:19 97.9 F 99 H 18 125/68 94 10/30/19 13:25 97.5 F L 72 16 154/59 10/30/19 13:05 81 127/80 10/30/19 13:00 88 137/72 10/30/19 12:45 74 139/60 10/30/19 12:30 94 H 142/68 10/30/19 12:15 73 135/58 10/30/19 12:00 97.7 F 84 20 144/76 113/69 97 10/30/19 11:45 90 113/69 10/30/19 11:30 77 162/75 10/30/19 11:15 82 135/56 - Physical Examination General: No Apparent Distress, Cachectic HEENT: Positive: PERRL Neck: Positive: neck supple, trachea midline. Negative: JVD/HJR Cardiac: Positive: Irregularly Regular Lungs: Positive: Decreased Breath Sounds Neuro: Positive: Weakness Abdomen: Positive: Soft, Active Bowel Sounds Skin: Positive: Clear Extremities: Absent: edema - Labs and Meds Comprehensive Metabolic Panel 10/31/19 Range/Units 06:12 Sodium 139 (137-145) mmol/L Potassium 4.1 (3.6-5.0) mmol/L Chloride 97.4 L (98-107) mmol/L Carbon Dioxide 27 (22-30) mmol/L BUN 49 H (9-20) mg/dL Creatinine 2.3 H (0.8-1.5) mg/dL Glucose 140 H (75-100) mg/dL Calcium 9.9 (8.4-10.2) mg/dL
--- NOTE | 2019-10-31 15:15 | Progress Note ---
Assessment and Plan /Reeks of aspiration -Patient on pured diet with a very poor oral intake and frequent cough while eating -Reconsulted to speech therapy, may need PEG tube /Toxic metabolic encephalopathy. -Likely from uremia and hyponatremia -Continue to treat underlying causes -Acute CVA/neurosyphilis/meningitis ruled out with negative CSF finding and brain imaging studies /SIRS No obvious infection, Unclear etiology. CSF not consistent with meningitis. CXR without pneumonia. CT abdomen with mild nonspecific inflammation adjacent to the distal aorta. Blood cultures negative, UA without pyuria. Influenza rapid test negative, COVID-19 PCR negative, HIV negative, hepatitis C antibody negative. Hepatitis B surface antigen is reactive. /A. fib with RVR, status post conversion Status post heparin drip, patient thrombocytopenic cardiology following, rate controlled /Anemia due to chronic disease and GI bleed. - Type and cross and transfuse 2 units PRBCs. /Upper GI bleed with melena. - GI consulted - EGD revealed 1.5 cm duodenal bulb ulcer -Continue PPI /Chronic hepatitis B. hepatitis B surface antigen positive. LFTs not elevated. /Hypertension uncontrolled As needed IV hydralazine, Nitropaste, Continue current meds /PRIMO due to ATN Nephrology following Now placed on hemodialysis /Hypernatremia, resolved Nephrology following /Hypokalemia replace as needed /Thrombocytopenia hematology following DVT prophylaxis with SCDs only because of low platelets 10/30: Resumed care. RN reported that patient has difficulty eating and coughing with pured diet. Re-consulted speech therapy. Patient might need PEG tube. Called patient's son today but was unable to reach out to him, left device messages. Patient also need outpatient dialysis set up on discharge Brief History: The patient is an 84-year-old French male with hypertension, atrial fibrillation, dementia was brought into the emergency room with nausea, vomiting and decreased oral intake. On admission, he was found to have leukocytosis, lactate elevation, patient was hypertensive with a systolic blood pressure of 248, also found with rapid atrial fibrillation. Patient was placed on IV fluid, IV antibiotics and Cardizem drip. due to his advanced age, frailty, and the presence of marked thrombocytopenia cardiology recommended conservative management with rate control strategy and deferred anticoagulation. Patient was suspected for possible meningitis versus neurosyphilis for his altered mental status. His influenza rapid test negative, COVID-19 PCR negative, HIV negative, hepatitis C antibody negative. ID was consulted and recommended CHF, CHF study ruled out neurosyphilis or meningitis. He is now off antibiotics. He was then noted to have black liquid stool and GI consult was called, status post EGD showed duodenal bulb ulcer, placed on PPI. Patient now with increasing creatinine, up from 1.4 on admission to 4.1 with uremia. Nephrology consulted and patient placed on hemodialysis as no improvement noted with IV fluid. Patient having difficulty swallowing, speech recommended pured diet. He still having difficulty tolerating diet, speech reconsulted and patient might need a PEG tube. Physical exam: GEN: Not in acute distress, malnourished HEENT: Normocephalic, atraumatic, Neck: supple, No JVD Lungs: Clear to auscultation bilaterally, heart;S1 and S2 reg, no murmurs, rubs or gallop Abd:soft, non tender, non distended, normal bowel sounds, Ext: No edema, no clubbing, no cyanosis, Neuro: Awake,alert, confused Subjective Date of service: 10/31/19 Principal diagnosis: Metabolic Encephalopathy Interval history: Patient seen and examined. Medical records and medication list reviewed. No acute event overnight noted by the RN. having cough during eating Patient confused , Discussed plan of care at bedside with patient's RN. called Son but did not picker packer the phone Objective - Constitutional Vitals: Vital Signs - 12hr 10/31/19 10/31/19 10/31/19 03:35 06:08 08:31 Temperature 98.2 F 97.6 F Pulse Rate 79 76 Respiratory 18 18 Rate Blood Pressure 132/78 132/78 118/65 O2 Sat by Pulse 97 90 Oximetry 10/31/19 10/31/19 10:12 12:17 Temperature 98.0 F Pulse Rate 76 74 Respiratory 18 Rate Blood Pressure 138/64 124/65 O2 Sat by Pulse 98 Oximetry - Labs CBC & Chem 7: 10/25/19 05:17 11/02/19 05:03 Labs: Abnormal lab results 10/29/19 10/30/19 10/30/19 Range/Units 23:28 06:12 11:27 Chloride (98-107) mmol/L BUN (9-20) mg/dL Creatinine (0.8-1.5) mg/dL Glucose (75-100) mg/dL POC Glucose 126 H 140 H 174 H (70-105) 10/30/19 10/31/19 10/31/19 Range/Units 17:09 00:10 06:12 Chloride 97.4 L (98-107) mmol/L BUN 49 H (9-20) mg/dL Creatinine 2.3 H (0.8-1.5) mg/dL Glucose 140 H (75-100) mg/dL POC Glucose 182 H 160 H (70-105) HEART Score - HEART Score Troponin: Troponin T 0.024 ng/mL (0.00-0.029) 10/10/19 21:40
[2019-10-31 18:21] LABS: Creatinine,Urine 92.4 mg/dL (0.1-20.0)
[2019-11-01] MEDS: hydrALAZINE 25 MG TAB PO SCH ×3 (05:37→22:55)
[2019-11-01] MEDS: ISOSORB DINIT/HYDRALAZINE 20-37.5MG TAB PO SCH ×3 (05:37→22:55)
[2019-11-01 06:54] LABS: Calcium 9.7 mg/dL (8.4-10.2)
[2019-11-01] MEDS: PANTOPRAZOLE 40 MG TAB PO SCH (09:23)
[2019-11-01] MEDS: METOPROLOL TARTRATE 50 MG TAB PO SCH ×2 (09:23→22:55)
--- NOTE | 2019-11-01 11:19 | Progress Note ---
Assessment and Plan Assessment: Acute renal failure, possible ischemic ATN from low BP, also possible TTP/HUS Sepsis Afib with RVR Hypotension Thrombocytopenia Hypokalemia, Resolved Plan: Creatinine clearance noted to be 11 ml/min on 10/24/19. We have repeated it to reassess for renal recovery, result is currently pending, will follow Serum creatinine 2.4 today with rising BUN level of 67. Last HD was on Wednesday. Hemodialysis for today ordered. S/p Right IJ Perm Catheter placement on 10/27/[address] Howell ARABELLA, ANCA, SPEP, C3, C4, Anti-GBM, SPEP, urine eosinophils-negative Secondary GN work up was negative except for HBVsag and RPR, ID is following [id number] Strict I&O monitoring Obtain daily weights Renally dose medications Avoid nephrotoxic agents Monitor electrolytes and renal function closely CM onboard for outpatient HD placement arrangement Subjective Date of service: 11/01/19 Principal diagnosis: Metabolic Encephalopathy Interval history: Patient seen lying in bed. Now eating better. No family at bedside. Objective - Vital Signs Vital signs: Vital Signs - 12hr 11/01/19 11/01/19 11/01/19 04:05 05:37 08:37 Temperature 98.2 F 98.5 F Pulse Rate 83 83 72 Respiratory 18 17 Rate Blood Pressure 127/67 Blood Pressure 128/72 [Right] O2 Sat by Pulse 99 90 Oximetry - General Appearance General appearance: well-developed EENT: ATNC Neck: no JVD Respiratory: Present: Decreased Breath Sounds Cardiology: S1S2 Gastrointestinal: normoactive bowel sounds, other (Has dobhoff tube feeding) Integumentary: warm and dry Neurologic: other (resting) Musculoskeletal: other (No edema) - Lab 10/25/19 05:17 11/01/19 06:04 Most recent lab results Calcium 9.7 mg/dL (8.4-10.2) 11/01/19 06:04 Phosphorus 4.40 mg/dL (2.5-4.5) D 10/25/19 05:17 Magnesium 1.80 mg/dL (1.7-2.3) 10/24/19 08:36 Urine Creatinine 92.4 mg/dL (0.1-20.0) H 10/31/19 Unknown Medications & Allergies - Medications Allergies/Adverse Reactions: Allergies No Known Allergies Allergy (Unverified 10/10/19 21:31) Home Medications: Home Medications Medication Instructions Recorded Confirmed Last Taken Type Metoprolol 50 mg PO BID 10/10/19 10/18/19 Unknown History Active Medications: Generic Name Dose Route Start Last Admin Trade Name Freq PRN Reason Stop Dose Admin Acetaminophen 650 mg 10/11/19 02:03 Tylenol PO Q4H PRN Pain MILD(1-3)/Fever >100.5/ANNE Lipase/Protease/Amylase 1 each 10/25/19 14:[address] 10,500 Unit FEEDTUBE PRN PRN For Clogged Feeding Tube Hydralazine HCl 5 mg 10/11/19 08:00 Apresoline IV Q30MIN PRN Hypertension Hydralazine HCl 25 mg 10/21/19 15:00 11/01/19 05:37 Apresoline PO 25 mg Q8HR NETO Administration Sodium Chloride 100 mls @ 999 mls/hr 10/27/19 11:00 Nacl 0.9% IV EMILIE PRN Hypotension Isosorbide Dinitrate/Hydralazine 1 each 10/13/19 14:00 11/01/19 05:37 Bidil 20/37.5mg PO 1 each Q8HR NETO Administration Labetalol HCl 10 mg 10/11/19 13:00 10/18/19 04:10 Labetalol IV 10 mg Q4H PRN Administration Hypertension Metoprolol Tartrate 50 mg 10/11/19 10:00 11/01/19 09:23 Metoprolol PO 50 mg BID NETO Administration Ondansetron HCl 4 mg 10/11/19 02:03 Zofran IV Q8H PRN Nausea And Vomiting Pantoprazole Sodium 40 mg 10/24/19 10:00 11/01/19 09:23 Protonix PO 40 mg DAILY NETO Administration Simple Syrup 15 ml 10/25/19 14:06 Simple Syrup FEEDTUBE PRN PRN Hypoglycemia Simple Syrup 30 ml 10/25/19 14:06 Simple Syrup FEEDTUBE PRN PRN Hypoglycemia Sodium Bicarbonate 325 mg 10/25/19 14:06 Sodium Bicarbonate FEEDTUBE PRN PRN For Clogged Feeding Tube Sodium Chloride 10 ml 10/11/19 10:00 11/01/19 09:23 Sodium Chloride Flush Syringe 10 Ml IV 10 ml BID NETO Administration Sodium Chloride 10 ml 10/11/19 02:03 Sodium Chloride Flush Syringe 10 Ml IV PRN PRN LINE FLUSH
--- NOTE | 2019-11-01 12:35 | Progress Note ---
Assessment and Plan - Patient Problems (1) Atrial fibrillation Current Visit: Yes Status: Acute Plan to address problem: Continue management of atrial fibrillation on a rate control strategy. (2) Cardiomyopathy Current Visit: Yes Status: Acute Plan to address problem: Guideline directed medical therapy for chronic systolic left ventricular failure. Subjective Date of service: 11/01/19 Principal diagnosis: Metabolic Encephalopathy Interval history: Patient is comfortable, asleep with NG feeding tube in place. No acute distress. No new cardiac issues. Objective Vital Signs Temp Pulse Resp BP BP Pulse Ox 11/01/19 12:23 97.9 F 67 17 112/63 96 11/01/19 08:37 98.5 F 72 17 128/72 90 11/01/19 08:35 98.5 F 72 17 124/72 89 11/01/19 05:37 83 11/01/19 04:05 98.2 F 83 18 127/67 99 10/31/19 22:59 97.9 F 66 16 109/52 98 10/31/19 21:39 77 138/77 10/31/19 19:20 98.1 F 77 18 138/68 99 10/31/19 16:20 98.9 F 81 20 115/62 98 - Physical Examination General: No Apparent Distress, Cachectic HEENT: Positive: PERRL Neck: Positive: neck supple, trachea midline. Negative: JVD/HJR Cardiac: Positive: irregularly irregular Lungs: Positive: Decreased Breath Sounds Neuro: Positive: Weakness Abdomen: Positive: Soft, Active Bowel Sounds Skin: Positive: Clear Extremities: Absent: edema - Labs and Meds Comprehensive Metabolic Panel 11/01/19 Range/Units 06:04 Sodium 137 (137-145) mmol/L Potassium 4.2 (3.6-5.0) mmol/L Chloride 96.4 L (98-107) mmol/L Carbon Dioxide 28 (22-30) mmol/L BUN 67 H (9-20) mg/dL Creatinine 2.4 H (0.8-1.5) mg/dL Glucose 139 H (75-100) mg/dL Calcium 9.7 (8.4-10.2) mg/dL
--- NOTE | 2019-11-01 14:59 | Progress Note ---
Assessment and Plan /Reeks of aspiration -Reconsulted to speech therapy and recommended pured diet with necter thick liquid /PRIMO due to ATN Nephrology following Now placed on hemodialysis /Toxic metabolic encephalopathy. -Likely from uremia and hyponatremia -Continue to treat underlying causes -Acute CVA/neurosyphilis/meningitis ruled out with negative CSF finding and brain imaging studies /SIRS No obvious infection, Unclear etiology. CSF not consistent with meningitis. CXR without pneumonia. CT abdomen with mild nonspecific inflammation adjacent to the distal aorta. Blood cultures negative, UA without pyuria. Influenza rapid test negative, COVID-19 PCR negative, HIV negative, hepatitis C antibody negative. Hepatitis B surface antigen is reactive. /A. fib with RVR, status post conversion Status post heparin drip, patient thrombocytopenic cardiology following, rate controlled /Anemia due to chronic disease and GI bleed. - Type and cross and transfuse 2 units PRBCs. /Upper GI bleed with melena. - GI consulted - EGD revealed 1.5 cm duodenal bulb ulcer -Continue PPI /Chronic hepatitis B. hepatitis B surface antigen positive. LFTs not elevated. /Hypertension uncontrolled As needed IV hydralazine, Nitropaste, Continue current meds /Hypernatremia, resolved Nephrology following /Hypokalemia replace as needed /Thrombocytopenia hematology following DVT prophylaxis with SCDs only because of low platelets 10/30: Resumed care. RN reported that patient has difficulty eating and coughing with pured diet. Re-consulted speech therapy. Patient might need PEG tube. Called patient's son today but was unable to reach out to him, left device messages. Patient also need outpatient dialysis set up on discharge 10/31: Patient did well with repeat speech eval, change thin liquid to nectar thin liquid and will continue pured diet. Stable medically for discharge as soon as outpatient dialysis gets set up. Brief History: The patient is an 84-year-old Arabic male with hypertension, atrial fibrillation, dementia was brought into the emergency room with nausea, vomiting and decreased oral intake. On admission, he was found to have leukocytosis, lactate elevation, patient was hypertensive with a systolic blood pressure of 248, also found with rapid atrial fibrillation. Patient was placed on IV fluid, IV antibiotics and Cardizem drip. due to his advanced age, frailty, and the presence of marked thrombocytopenia cardiology recommended conservative management with rate control strategy and deferred anticoagulation. Patient was suspected for possible meningitis versus neurosyphilis for his altered mental status. His influenza rapid test negative, COVID-19 PCR negative, HIV negative, hepatitis C antibody negative. ID was consulted and recommended CHF, CHF study ruled out neurosyphilis or meningitis. He is now off antibiotics. He was then noted to have black liquid stool and GI consult was called, status post EGD showed duodenal bulb ulcer, placed on PPI. Patient now with increasing creatinine, up from 1.4 on admission to 4.1 with uremia. Nephrology consulted and patient placed on hemodialysis as no improvement noted with IV fluid. Patient having difficulty swallowing, speech recommended pured diet. need outpt Hd set up for discharge. Physical exam: GEN: Not in acute distress, malnourished HEENT: Normocephalic, atraumatic, Neck: supple, No JVD Lungs: Clear to auscultation bilaterally, heart;S1 and S2 reg, no murmurs, rubs or gallop Abd:soft, non tender, non distended, normal bowel sounds, Ext: No edema, no clubbing, no cyanosis, Neuro: Awake,alert, confused Subjective Date of service: 11/01/19 Principal diagnosis: Metabolic Encephalopathy Interval history: Patient seen and examined. Medical records and medication list reviewed. No acute event overnight noted by the RN. having cough during eating Patient confused , tolerating diet today need HD outpt on discharge Objective - Constitutional Vitals: Vital Signs - 12hr 11/01/19 11/01/19 11/01/19 04:05 05:37 08:35 Temperature 98.2 F 98.5 F Pulse Rate 83 83 72 Respiratory 18 17 Rate Blood Pressure 127/67 124/72 Blood Pressure [Right] O2 Sat by Pulse 99 89 Oximetry 11/01/19 11/01/19 08:37 12:23 Temperature 98.5 F 97.9 F Pulse Rate 72 67 Respiratory 17 17 Rate Blood Pressure 112/63 Blood Pressure 128/72 [Right] O2 Sat by Pulse 90 96 Oximetry - Labs CBC & Chem 7: 10/25/19 05:17 11/02/19 05:03 Labs: Abnormal lab results 10/31/19 10/31/19 10/31/19 Range/Units 06:03 12:41 16:33 Chloride (98-107) mmol/L BUN (9-20) mg/dL Creatinine (0.8-1.5) mg/dL Glucose (75-100) mg/dL POC Glucose 133 H 144 H 145 H (70-105) Urine Creatinine (0.1-20.0) mg/dL 10/31/19 10/31/19 11/01/19 Range/Units 23:57 Unknown 05:39 Chloride (98-107) mmol/L BUN (9-20) mg/dL Creatinine (0.8-1.5) mg/dL Glucose (75-100) mg/dL POC Glucose 131 H 150 H (70-105) Urine Creatinine 92.4 H (0.1-20.0) mg/dL 11/01/19 11/01/19 Range/Units 06:04 12:30 Chloride 96.4 L (98-107) mmol/L BUN 67 H (9-20) mg/dL Creatinine 2.4 H (0.8-1.5) mg/dL Glucose 139 H (75-100) mg/dL POC Glucose 187 H (70-105) Urine Creatinine (0.1-20.0) mg/dL HEART Score - HEART Score Troponin: Troponin T 0.024 ng/mL (0.00-0.029) 10/10/19 21:40
[2019-11-02] MEDS: ISOSORB DINIT/HYDRALAZINE 20-37.5MG TAB PO SCH ×3 (06:26→21:38)
[2019-11-02] MEDS: hydrALAZINE 25 MG TAB PO SCH ×3 (06:28→21:38)
[2019-11-02 06:56] LABS: Calcium 9.9 mg/dL (8.4-10.2)
--- NOTE | 2019-11-02 11:51 | Discharge Summary ---
Providers - Providers Date of Admission: 10/11/19 02:03 Date of discharge: 11/05/19 Attending physician: MARY MARKHAM 10/11/19 09:31 Consult to Dietitian/Nutrition [CONS] Routine Physician Instructions: Reason For Exam: Reason for Consult: Poor oral intake 10/11/19 10:27 Consult to Physician [CONS] Routine Comment: Consulting Provider: YOLANDA LARSEN Physician Instructions: Reason For Exam: atrial fib 10/12/19 09:17 Speech Therapy Evaluation and Treat [CONS] Stat Reason For Exam: difficulty feeding 10/13/19 13:55 Physical Therapy Evaluation and Treat [CONS] Routine Comment: Reason For Exam: debility 10/14/19 07:28 Consult to Physician [CONS] Routine Comment: Consulting Provider: KEVYN POLLARD Physician Instructions: Reason For Exam: PRIMO 10/14/19 10:02 Consult to Physician [CONS] Routine Comment: Consulting Provider: NOBLE LIND Physician Instructions: Reason For Exam: Low platelets. To r/o TTP/HUS 10/15/19 07:36 Consult to Physician [CONS] Routine Comment: Consulting Provider: STEPHEN ANDERSEN Physician Instructions: Reason For Exam: Leukocytosis,poss sepsis, abnormal CT abd 10/15/19 12:59 Consult to Physician [CONS] Routine Comment: Consulting Provider: SHERINE STUART Physician Instructions: can be seen tomorrow Reason For Exam: vascath placement 10/16/19 07:51 Consult to Physician [CONS] Routine Comment: Consulting Provider: STEPHEN ANDERSEN Physician Instructions: Reason For Exam: Syphilis IgG Antibody positive 10/17/19 12:46 Consult to Physician [CONS] Routine Comment: Consulting Provider: JANIYA YI Physician Instructions: Reason For Exam: AMS 10/20/19 15:08 Consult to Case Management [CONS] Routine Services Needed at Discharge: Other Notified:: case management Additional Physician Instructions: Address: [facility] [place] [address] 10/21/19 07:37 Consult to Physician [CONS] Routine Comment: Consulting Provider: JOHNNA BAILEY Physician Instructions: Reason For Exam: gi bleed 10/22/19 09:17 Consult to Dietitian/Nutrition [CONS] Routine Physician Instructions: Please address with Hospitalist if action needed Reason For Exam: Please assess adequacy of po intake, and address Reason for Consult: Malnutrition 10/25/19 14:02 Consult to Dietitian/Nutrition [CONS] Routine Physician Instructions: Reason For Exam: Reason for Consult: Write/Manage Tube Feeding 10/30/19 10:00 Consult to Wound/ET Nurse [CONS] Routine Reason For Exam: wound eval 10/30/19 15:21 Physical Therapy Evaluation and Treat [CONS] Routine Comment: Reason For Exam: Gen weakness 10/31/19 10:15 Speech Therapy Evaluation and Treat [CONS] Routine Reason For Exam: ASPIRATION Primary care physician: SEWER LINE PHOTO INSPECTOR Hospitalization Condition: Serious Pertinent studies: Head CT, abdomen pelvis CT, chest x-rays, brain MRI, abdominal x-rays 2D echocardiogram Lumbar puncture with fluoroscopy Hospital course: The patient is an 84-year-old [place]ian male with hypertension, atrial fibrillation, dementia was brought into the emergency room with nausea, vomiting and decreased oral intake. On admission, he was found to have leukocytosis, lactate elevation, patient was hypertensive with a systolic blood pressure of 248, also found with rapid atrial fibrillation. Patient was placed on IV fluid, IV antibiotics and Cardizem drip. due to his advanced age, frailty, and the presence of marked thrombocytopenia cardiology recommended conservative management with rate control strategy and deferred anticoagulation. Patient was suspected for possible meningitis versus neurosyphilis for his altered mental status. His influenza rapid test negative, COVID-19 PCR negative, HIV negative, hepatitis C antibody negative. ID was consulted and recommended CSF study. s/p LP and CSF study ruled out neurosyphilis or meningitis. He is now off antibiotics. He was then noted to have black liquid stool and GI consult was called, status post EGD showed duodenal bulb ulcer, placed on PPI. Patient then developed increasing creatinine, up from 1.4 on admission to 4.1 with uremia. Nephrology consulted and patient placed on hemodialysis as no improvement noted with IV fluid. Patient having difficulty swallowing, speech recommended pured diet. mds manager consulted for outpatient dialysis set up, patient was then planned to discharge home with outpatient dialysis. But family in the last minute decided for hospice, he was then discharged with inpt hospice. 10/30: Resumed care. RN reported that patient has difficulty eating and coug edgar with pured diet. Re-consulted speech therapy. Patient might need PEG tube. Called patient's son today but was unable to reach out to him, left device messages. Patient also need outpatient dialysis set up on discharge 10/31: Patient did well with repeat speech eval, change thin liquid to nectar thin liquid and will continue pured diet. Stable medically for discharge as soon as outpatient dialysis gets set up. 11/01: Need outpatient dialysis set up, patient is medically stable for discharge. Pending discharge home outpatient dialysis setup and family to pepper picker the patient 11/02: Permcath was not working for HD today, vascular surgeon consulted 11/03: No need for permcath change, worked ok for HD today. planned for d/c but Son didnot come to pick, he is coming tomorrow morning for pepper picker 11/04: Family came to pickup for discharge today and Son stated that they won't be able to take care of the patient at home as he became more lethargic requiring 24/7 care and changed their mind for discharge. family now wants hospice. CM notified and then patient was discharged with inpt hospice. Discharge diagnosis and management: /Toxic metabolic encephalopathy. -Likely from uremia and hyponatremia -Continue to treat underlying causes -Acute CVA/neurosyphilis/meningitis ruled out with negative CSF finding and brain imaging studies -Patient also has underlying dementia /SIRS No obvious infection, Unclear etiology. CSF not consistent with meningitis. CXR without pneumonia. CT abdomen with mild nonspecific inflammation adjacent to the distal aorta. Blood cultures negative, UA without pyuria. Influenza rapid test negative, COVID-19 PCR negative, HIV negative, hepatitis C antibody negative. Hepatitis B surface antigen is r eactive. /A. fib with RVR, status post conversion Status post heparin drip, patient thrombocytopenic cardiology following, rate controlled /Risks of aspiration -Consulted to speech therapy and recommended pured diet with necter thick liquid /PRIMO due to ATN possible ischemic ATN from low BP, also possible TTP/HUS Nephrology was following, placed on hemodialysis S/p Right IJ Perm Catheter placement on 10/27/[address] Howell /Anemia due to chronic disease and GI bleed. - s/p Type and cross and transfuse 2 units PRBCs. /Upper GI bleed with melena. - GI consulted - EGD revealed 1.5 cm duodenal bulb ulcer -Continue PPI /Chronic hepatitis B. hepatitis B surface antigen positive. LFTs not elevated. /Hypertension uncontrolled As needed IV hydralazine, Nitropaste, Continue current meds /Cardiomyopathy with EF 40 to 45%, compensated, POA -Volume control with HD and medical management per cardiology /Hypernatremia, resolved Nephrology following /Hypokalemia replace as needed /Thrombocytopenia hematology following /Dementia, continue to provide supportive care DVT prophylaxis with SCDs only because of low platelets Disposition: Hospice Physical exam: GEN: Not in acute distress, malnourished HEENT: Normocephalic, atraumatic, Neck: supple, No JVD Lungs: Clear to auscultation bilaterally, heart;S1 and S2 reg, no murmurs, rubs or gallop Abd:soft, non tender, non distended, normal bowel sounds, Ext: No edema, no clubbing, no cyanosis, Neuro: Awake,alert, confused Disposition: [facility] Time spent for discharge: 34 minutes Core Measure Documentation - Palliative Care Palliative Care/ Comfort Measures: Not Applicable - Core Measures Any of the following diagnoses?: history only Exam - Constitutional Vitals: Temp Pulse Resp BP Pulse Ox 98.7 F 81 18 115/56 99 11/02/19 08:07 11/02/19 08:07 11/02/19 08:07 11/02/19 08:07 11/02/19 08:07 Plan Activity: fall precautions Weight Bearing Status: Non-Weight Bearing Diet: other (pureed diet with necter thick liquid) Special Instructions: restrict fluid intake to (1.2L per day), home health RN Follow up with: PRIMARY CARE, [Primary Care Provider] - 7 Days Prescriptions: hydrALAZINE [Apresoline TAB] 25 mg PO Q12HR #60 tablet Aspirin [Aspirin BABY CHEW TAB] 81 mg PO QDAY #30 tab.chew Isosorb Dinit/Hydralazine [Bidil 20/37.5MG] 1 each PO Q8HR #90 tablet Metoprolol [Lopressor TAB] 50 mg PO BID #60 tablet
--- NOTE | 2019-11-02 12:02 | Progress Note ---
Assessment and Plan - Patient Problems (1) Atrial fibrillation Current Visit: Yes Status: Acute Plan to address problem: Continue management of chronic atrial fibrillation on a rate control strategy. (2) Cardiomyopathy Current Visit: Yes Status: Acute Plan to address problem: Guideline directed medical therapy for chronic systolic left ventricular failure. Subjective Date of service: 11/02/19 Principal diagnosis: Metabolic Encephalopathy Interval history: Patient is comfortable, no acute distress, no new cardiac issues, NG feeding tube in place. Objective Vital Signs Temp Pulse Pulse Pulse Resp BP Pulse Ox 11/02/19 08:07 98.7 F 81 18 115/56 99 11/02/19 06:28 75 147/80 11/02/19 06:26 75 147/80 11/02/19 06:19 69 16 147/80 100 11/02/19 04:01 98.0 F 18 102/59 11/02/19 00:01 98.0 F 18 166/79 11/01/19 22:55 92 H 178/98 11/01/19 22:00 92 H 92 H 16 11/01/19 19:33 98.9 F 18 153/83 11/01/19 19:12 98.6 F 92 H 16 143/55 11/01/19 18:00 92 H 143/55 11/01/19 17:45 96 H 137/54 11/01/19 17:30 74 154/59 11/01/19 17:15 69 154/53 11/01/19 17:00 85 153/73 11/01/19 16:45 84 139/76 11/01/19 16:30 86 166/42 11/01/19 16:15 70 139/61 11/01/19 16:00 75 134/73 11/01/19 15:45 98 H 121/59 11/01/19 15:30 80 136/69 11/01/19 15:15 75 130/67 11/01/19 15:00 69 144/60 11/01/19 14:30 97.9 F 62 16 126/61 11/01/19 12:23 97.9 F 67 17 112/63 96 - Physical Examination General: No Apparent Distress, Cachectic HEENT: Positive: PERRL Neck: Positive: neck supple, trachea midline. Negative: JVD/HJR Cardiac: Positive: irregularly irregular Lungs: Positive: Decreased Breath Sounds Neuro: Positive: Weakness Abdomen: Positive: Soft, Active Bowel Sounds Skin: Positive: Clear Extremities: Absent: edema - Labs and Meds Comprehensive Metabolic Panel 11/02/19 Range/Units 05:03 Sodium 140 (137-145) mmol/L Potassium 4.6 (3.6-5.0) mmol/L Chloride 101.8 (98-107) mmol/L Carbon Dioxide 26 (22-30) mmol/L BUN 43 H (9-20) mg/dL Creatinine 1.8 H (0.8-1.5) mg/dL Glucose 147 H (75-100) mg/dL Calcium 9.9 (8.4-10.2) mg/dL
[2019-11-02] MEDS: METOPROLOL TARTRATE 50 MG TAB PO SCH ×2 (12:23→21:38)
[2019-11-02] MEDS: PANTOPRAZOLE 40 MG TAB PO SCH (12:23)
--- NOTE | 2019-11-02 13:53 | Progress Note ---
Assessment and Plan Assessment: Acute renal failure, possible ischemic ATN from low BP, also possible TTP/HUS Sepsis Afib with RVR Hypotension Thrombocytopenia Hypokalemia, Resolved Plan: Creatinine clearance noted to be 11 ml/min on 10/24/19. We have repeated it to reassess for renal recovery, result is currently pending-spoke to lab today and he is currently searching for urine volume S/P hemodialysis yesterday for clearance mainly Serum creatinine 1.8 today, yesterday was 2.4. S/p Right IJ Perm Catheter placement on 10/27/[address] Howell ARABELLA, ANCA, SPEP, C3, C4, Anti-GBM, SPEP, urine eosinophils-negative Secondary GN work up was negative except for HBVsag and RPR, ID onboard [id number] Strict I&O monitoring Obtain daily weights Renally dose medications Avoid nephrotoxic agents Monitor electrolytes and renal function closely CM onboard for outpatient HD placement arrangement Subjective Date of service: 11/02/19 Principal diagnosis: Metabolic Encephalopathy Interval history: Patient seen lying in bed. No family at bedside. Objective - Vital Signs Vital signs: Vital Signs - 12hr 11/02/19 11/02/19 11/02/19 04:01 06:19 06:26 Temperature 98.0 F Pulse Rate 69 75 Respiratory 18 16 Rate Blood Pressure 102/59 147/80 147/80 O2 Sat by Pulse 100 Oximetry 11/02/19 11/02/19 11/02/19 06:28 08:07 11:08 Temperature 98.7 F 98.0 F Pulse Rate 75 81 82 Respiratory 18 18 Rate Blood Pressure 147/80 115/56 142/74 O2 Sat by Pulse 99 100 Oximetry 11/02/19 12:23 Temperature Pulse Rate 82 Respiratory Rate Blood Pressure 142/74 O2 Sat by Pulse Oximetry - General Appearance General appearance: cachectic, fatigue EENT: ATNC, PERRL Neck: no JVD, supple Respiratory: Present: Decreased Breath Sounds Cardiology: S1S2 Gastrointestinal: normoactive bowel sounds Integumentary: warm and dry Neurologic: other (Awake) Musculoskeletal: other (No edema) - Lab 10/25/19 05:17 11/02/19 05:03 Most recent lab results Calcium 9.9 mg/dL (8.4-10.2) 11/02/19 05:03 Phosphorus 4.40 mg/dL (2.5-4.5) D 10/25/19 05:17 Magnesium 1.80 mg/dL (1.7-2.3) 10/24/19 08:36 Urine Creatinine 92.4 mg/dL (0.1-20.0) H 10/31/19 Unknown Medications & Allergies - Medications Allergies/Adverse Reactions: Allergies No Known Allergies Allergy (Unverified 10/10/19 21:31) Home Medications: Home Medications Medication Instructions Recorded Confirmed Last Taken Type Aspirin [Aspirin BABY CHEW TAB] 81 mg PO QDAY #30 tab.chew 11/02/19 Unknown Rx Isosorb Dinit/Hydralazine [Bidil 1 each PO Q8HR #90 tablet 11/02/19 Unknown Rx 20/37.5MG] Metoprolol [Lopressor TAB] 50 mg PO BID #60 tablet 11/02/19 Unknown Rx hydrALAZINE [Apresoline TAB] 25 mg PO Q12HR #60 tablet 11/02/19 Unknown Rx Active Medications: Generic Name Dose Route Start Last Admin Trade Name Ryanq PRN Reason Stop Dose Admin Acetaminophen 650 mg 10/11/19 02:03 Tylenol PO Q4H PRN Pain MILD(1-3)/Fever >100.5/ANNE Lipase/Protease/Amylase 1 each 10/25/19 14:06 Pancreaze 10,500 Unit FEEDTUBE PRN PRN For Clogged Feeding Tube Hydralazine HCl 5 mg 10/11/19 08:00 Apresoline IV Q30MIN PRN Hypertension Hydralazine HCl 25 mg 10/21/19 15:00 11/02/19 06:28 Apresoline PO 25 mg Q8HR NETO Administration Sodium Chloride 100 mls @ 999 mls/hr 10/27/19 11:00 Nacl 0.9% IV EMILIE PRN Hypotension Isosorbide Dinitrate/Hydralazine 1 each 10/13/19 14:00 11/02/19 06:26 Bidil 20/37.5mg PO 1 each Q8HR NETO Administration Labetalol HCl 10 mg 10/11/19 13:00 10/18/19 04:10 Labetalol IV 10 mg Q4H PRN Administration Hypertension Metoprolol Tartrate 50 mg 10/11/19 10:00 11/02/19 12:23 Metoprolol PO 50 mg BID NETO Administration Ondansetron HCl 4 mg 10/11/19 02:03 Zofran IV Q8H PRN Nausea And Vomiting Pantoprazole Sodium 40 mg 10/24/19 10:00 11/02/19 12:23 Protonix PO 40 mg DAILY NETO Administration Simple Syrup 15 ml 10/25/19 14:06 Simple Syrup FEEDTUBE PRN PRN Hypoglycemia Simple Syrup 30 ml 10/25/19 14:06 Simple Syrup FEEDTUBE PRN PRN Hypoglycemia Sodium Bicarbonate 325 mg 10/25/19 14:06 Sodium Bicarbonate FEEDTUBE PRN PRN For Clogged Feeding Tube Sodium Chloride 10 ml 10/11/19 10:00 11/02/19 12:24 Sodium Chloride Flush Syringe 10 Ml IV 10 ml BID NETO Administration Sodium Chloride 10 ml 10/11/19 02:03 Sodium Chloride Flush Syringe 10 Ml IV PRN PRN LINE FLUSH
[2019-11-02 14:03] LABS: Creatinine Clearance Urine TNR; Patient Height,Urine TNR inches; Patient Weight,Urine TNR lbs; Total Volume,Urine TNR ml
[2019-11-03] MEDS: ISOSORB DINIT/HYDRALAZINE 20-37.5MG TAB PO SCH ×3 (06:29→22:30)
[2019-11-03] MEDS: hydrALAZINE 25 MG TAB PO SCH ×3 (06:29→22:30)
[2019-11-03 06:45] LABS: Calcium 9.2 mg/dL (8.4-10.2)
[2019-11-03] MEDS: METOPROLOL TARTRATE 50 MG TAB PO SCH ×2 (09:17→22:29)
[2019-11-03] MEDS: PANTOPRAZOLE 40 MG TAB PO SCH (09:17)
--- NOTE | 2019-11-03 10:16 | Progress Note ---
Assessment and Plan - Patient Problems (1) Atrial fibrillation Current Visit: Yes Status: Acute Plan to address problem: Continue management of chronic atrial fibrillation on a rate control strategy. (2) Cardiomyopathy Current Visit: Yes Status: Acute Plan to address problem: Guideline directed medical therapy for chronic systolic left ventricular failure. Subjective Date of service: 11/03/19 Principal diagnosis: Metabolic Encephalopathy Interval history: Patient is awake, appears comfortable, his NG feeding tube is now out. Objective Vital Signs Temp Pulse Resp BP Pulse Ox 11/03/19 09:17 72 139/70 11/03/19 08:52 18 11/03/19 08:19 98.9 F 71 16 139/70 100 11/02/19 23:16 98.0 F 72 18 122/69 100 11/02/19 22:00 16 11/02/19 19:42 97.8 F 72 20 143/62 100 11/02/19 17:39 63 162/88 11/02/19 16:44 97.4 F L 63 18 162/88 91 11/02/19 12:23 82 142/74 11/02/19 11:08 98.0 F 82 18 142/74 100 - Physical Examination General: No Apparent Distress, Cachectic HEENT: Positive: PERRL Neck: Positive: neck supple, trachea midline. Negative: JVD/HJR Cardiac: Positive: irregularly irregular Lungs: Positive: Decreased Breath Sounds Neuro: Positive: Weakness Abdomen: Positive: Soft, Active Bowel Sounds Skin: Positive: Clear Extremities: Absent: edema - Labs and Meds Comprehensive Metabolic Panel 11/03/19 Range/Units 05:51 Sodium 141 (137-145) mmol/L Potassium 4.6 (3.6-5.0) mmol/L Chloride 100.0 (98-107) mmol/L Carbon Dioxide 26 (22-30) mmol/L BUN 57 H (9-20) mg/dL Creatinine 2.2 H (0.8-1.5) mg/dL Glucose 107 H (75-100) mg/dL Calcium 9.2 (8.4-10.2) mg/dL
--- NOTE | 2019-11-03 11:12 | Progress Note ---
Assessment and Plan Assessment: Acute renal failure, possible ischemic ATN from low BP, also possible TTP/HUS Sepsis Afib with RVR Hypotension Thrombocytopenia Hypokalemia, Resolved Plan: HD today for clearance, Cr and BUN cont rise off dialysis, minimal UOP S/p Right IJ Perm Catheter placement on 10/27/[address] Howell ARABELLA, ANCA, SPEP, C3, C4, Anti-GBM, SPEP, urine eosinophils-negative Secondary GN work up was negative except for HBVsag and RPR, ID onboard [id number] Strict I&O monitoring Obtain daily weights Renally dose medications Avoid nephrotoxic agents Monitor electrolytes and renal function closely CM onboard for outpatient HD placement arrangement Subjective Date of service: 11/03/19 Principal diagnosis: Metabolic Encephalopathy Interval history: no overnight events Objective - Vital Signs Vital signs: Vital Signs - 12hr 11/02/19 11/03/19 11/03/19 23:16 08:19 08:52 Temperature 98.0 F 98.9 F Pulse Rate 72 71 Respiratory 18 16 18 Rate Blood Pressure 122/69 139/70 O2 Sat by Pulse 100 100 Oximetry 11/03/19 09:17 Temperature Pulse Rate 72 Respiratory Rate Blood Pressure 139/70 O2 Sat by Pulse Oximetry - Lab 10/25/19 05:17 11/03/19 05:51 Most recent lab results Calcium 9.2 mg/dL (8.4-10.2) 11/03/19 05:51 Phosphorus 4.40 mg/dL (2.5-4.5) D 10/25/19 05:17 Magnesium 1.80 mg/dL (1.7-2.3) 10/24/19 08:36 Urine Creatinine 92.4 mg/dL (0.1-20.0) H 10/31/19 Unknown Medications & Allergies - Medications Allergies/Adverse Reactions: Allergies No Known Allergies Allergy (Unverified 10/10/19 21:31) Home Medications: Home Medications Medication Instructions Recorded Confirmed Last Taken Type Aspirin [Aspirin BABY CHEW TAB] 81 mg PO QDAY #30 tab.chew 11/02/19 Unknown Rx Isosorb Dinit/Hydralazine [Bidil 1 each PO Q8HR #90 tablet 11/02/19 Unknown Rx 20/37.5MG] Metoprolol [Lopressor TAB] 50 mg PO BID #60 tablet 11/02/19 Unknown Rx hydrALAZINE [Apresoline TAB] 25 mg PO Q12HR #60 tablet 11/02/19 Unknown Rx Active Medications: Generic Name Dose Route Start Last Admin Trade Name Freq PRN Reason Stop Dose Admin Acetaminophen 650 mg 10/11/19 02:03 Tylenol PO Q4H PRN Pain MILD(1-3)/Fever >100.5/ANNE Lipase/Protease/Amylase 1 each 10/25/19 14:06 Pancreeli Nuñez 10,500 Unit FEEDTUBE PRN PRN For Clogged Feeding Tube Hydralazine HCl 5 mg 10/11/19 08:00 Apresoline IV Q30MIN PRN Hypertension Hydralazine HCl 25 mg 10/21/19 15:00 11/03/19 06:29 Apresoline PO 25 mg Q8HR NETO Administration Sodium Chloride 100 mls @ 999 mls/hr 10/27/19 11:00 Nacl 0.9% IV EMILIE PRN Hypotension Isosorbide Dinitrate/Hydralazine 1 each 10/13/19 14:00 11/03/19 06:29 Bidil 20/37.5mg PO 1 each Q8HR NETO Administration Labetalol HCl 10 mg 10/11/19 13:00 10/18/19 04:10 Labetalol IV 10 mg Q4H PRN Administration Hypertension Metoprolol Tartrate 50 mg 10/11/19 10:00 11/03/19 09:17 Metoprolol PO 50 mg BID NETO Administration Ondansetron HCl 4 mg 10/11/19 02:03 Zofran IV Q8H PRN Nausea And Vomiting Pantoprazole Sodium 40 mg 10/24/19 10:00 11/03/19 09:17 Protonix PO 40 mg DAILY NETO Administration Simple Syrup 15 ml 10/25/19 14:06 Simple Syrup FEEDTUBE PRN PRN Hypoglycemia Simple Syrup 30 ml 10/25/19 14:06 Simple Syrup FEEDTUBE PRN PRN Hypoglycemia Sodium Bicarbonate 325 mg 10/25/19 14:06 Sodium Bicarbonate FEEDTUBE PRN PRN For Clogged Feeding Tube Sodium Chloride 10 ml 10/11/19 10:00 11/03/19 09:18 Sodium Chloride Flush Syringe 10 Ml IV 10 ml BID NETO Administration Sodium Chloride 10 ml 10/11/19 02:03 Sodium Chloride Flush Syringe 10 Ml IV PRN PRN LINE FLUSH
--- NOTE | 2019-11-03 11:31 | Progress Note ---
Assessment and Plan /Reeks of aspiration -Reconsulted to speech therapy and recommended pured diet with necter thick liquid /PRIMO due to ATN Nephrology following Now placed on hemodialysis /Toxic metabolic encephalopathy. -Likely from uremia and hyponatremia -Continue to treat underlying causes -Acute CVA/neurosyphilis/meningitis ruled out with negative CSF finding and brain imaging studies /SIRS No obvious infection, Unclear etiology. CSF not consistent with meningitis. CXR without pneumonia. CT abdomen with mild nonspecific inflammation adjacent to the distal aorta. Blood cultures negative, UA without pyuria. Influenza rapid test negative, COVID-19 PCR negative, HIV negative, hepatitis C antibody negative. Hepatitis B surface antigen is reactive. /A. fib with RVR, status post conversion Status post heparin drip, patient thrombocytopenic cardiology following, rate controlled /Anemia due to chronic disease and GI bleed. - Type and cross and transfuse 2 units PRBCs. /Upper GI bleed with melena. - GI consulted - EGD revealed 1.5 cm duodenal bulb ulcer -Continue PPI /Chronic hepatitis B. hepatitis B surface antigen positive. LFTs not elevated. /Hypertension uncontrolled As needed IV hydralazine, Nitropaste, Continue current meds /Hypernatremia, resolved Nephrology following /Hypokalemia replace as needed /Thrombocytopenia hematology following DVT prophylaxis with SCDs only because of low platelets 10/30: Resumed care. RN reported that patient has difficulty eating and coughing with pured diet. Re-consulted speech therapy. Patient might need PEG tube. Called patient's son today but was unable to reach out to him, left device messages. Patient also need outpatient dialysis set up on discharge 10/31: Patient did well with repeat speech eval, change thin liquid to nectar thin liquid and will continue pured diet. Stable medically for discharge as soon as outpatient dialysis gets set up. 11/01: Need outpatient dialysis set up, patient is medically stable for discharge. Pending discharge home outpatient dialysis setup and family to vegetable picker the patient Brief History: The patient is an 84-year-old Romansh male with hypertension, atrial fibrillation, dementia was brought into the emergency room with nausea, vomiting and decreased oral intake. On admission, he was found to have leukocytosis, lactate elevation, patient was hypertensive with a systolic blood pressure of 248, also found with rapid atrial fibrillation. Patient was placed on IV fluid, IV antibiotics and Cardizem drip. due to his advanced age, frailty, and the presence of marked thrombocytopenia cardiology recommended conservative management with rate control strategy and deferred anticoagulation. Patient was suspected for possible meningitis versus neurosyphilis for his altered mental status. His influenza rapid test negative, COVID-19 PCR negative, HIV negative, hepatitis C antibody negative. ID was consulted and recommended CHF, CHF study ruled out neurosyphilis or meningitis. He is now off antibiotics. He was then noted to have black liquid stool and GI consult was called, status post EGD showed duodenal bulb ulcer, placed on PPI. Patient now with increasing creatin ine, up from 1.4 on admission to 4.1 with uremia. Nephrology consulted and patient placed on hemodialysis as no improvement noted with IV fluid. Patient having difficulty swallowing, speech recommended pured diet. need outpt Hd set up for discharge. Physical exam: GEN: Not in acute distress, malnourished HEENT: Normocephalic, atraumatic, Neck: supple, No JVD Lungs: Clear to auscultation bilaterally, heart;S1 and S2 reg, no murmurs, rubs or gallop Abd:soft, non tender, non distended, normal bowel sounds, Ext: No edema, no clubbing, no cyanosis, Neuro: Awake,alert, confused Subjective Date of service: 11/02/19 Principal diagnosis: Metabolic Encephalopathy Interval history: Patient seen and examined. Medical records and medication list reviewed. No acute event overnight noted by the RN. having cough during eating Patient confused , tolerating diet today need HD outpt on discharge Patient was planned for discharge but family did not show up to pick him up Objective - Constitutional Vitals: Vital Signs - 12hr 11/03/19 11/03/19 11/03/19 08:19 08:52 09:17 Temperature 98.9 F Pulse Rate 71 72 Respiratory 16 18 Rate Blood Pressure 139/70 139/70 O2 Sat by Pulse 100 Oximetry - Labs CBC & Chem 7: 10/25/19 05:17 11/03/19 05:51 Labs: Abnormal lab results 11/03/19 11/03/19 Range/Units 05:51 08:30 BUN 57 H (9-20) mg/dL Creatinine 2.2 H (0.8-1.5) mg/dL Glucose 107 H (75-100) mg/dL POC Glucose 112 H (70-105) HEART Score - HEART Score Troponin: Troponin T 0.024 ng/mL (0.00-0.029) 10/10/19 21:40
[2019-11-03] MEDS ORDERED: ALTEPLASE 2 MG INJ IV ONE ×2 (13:02→14:32)
[2019-11-03] MEDS ORDERED: WATER FOR INJ Sterile (PF) 10 ML ONE ×2 (13:17→14:47)
[2019-11-04] MEDS: ISOSORB DINIT/HYDRALAZINE 20-37.5MG TAB PO SCH ×3 (06:50→22:44)
[2019-11-04] MEDS: hydrALAZINE 25 MG TAB PO SCH ×3 (06:50→22:43)
[2019-11-04] MEDS ORDERED: SODIUM CHLORIDE 0.9% 100 ML IV PRN (08:56)
[2019-11-04] MEDS: PANTOPRAZOLE 40 MG TAB PO SCH (09:48)
[2019-11-04] MEDS: METOPROLOL TARTRATE 50 MG TAB PO SCH ×2 (09:48→22:43)
--- NOTE | 2019-11-04 10:37 | Progress Note ---
Subjective Date of service: 11/04/19 Principal diagnosis: Metabolic Encephalopathy Interval history: Assessment and Plan - Patient Problems (1) Atrial fibrillation HR controlled Continue management of chronic atrial fibrillation on a rate control strategy. (2) Cardiomyopathy Dialysis to control volume overload for chronic systolic left ventricular failure. No new recommendations today Objective Vital Signs Temp Pulse Resp BP Pulse Ox 11/04/19 09:48 77 104/57 11/04/19 09:30 73 101/52 11/04/19 09:15 80 106/52 11/04/19 09:00 80 107/57 11/04/19 08:45 98.0 F 94 H 18 142/53 11/04/19 07:59 18 11/04/19 07:53 98.0 F 77 18 104/57 99 11/04/19 06:50 76 122/74 11/04/19 04:15 97.4 F L 76 16 122/74 87 11/03/19 22:30 75 148/87 11/03/19 22:29 75 148/87 11/03/19 22:00 16 11/03/19 19:16 98.0 F 20 148/87 11/03/19 16:42 97.9 F 75 16 130/77 100 11/03/19 14:58 98.9 F 76 18 146/86 11/03/19 12:45 73 120/67 11/03/19 12:30 66 120/69 11/03/19 12:28 64 136/59 11/03/19 12:12 98.9 F 66 18 125/48 - Physical Examination General: Appears Well, No Apparent Distress, Cachectic HEENT: Positive: PERRL Neck: Positive: neck supple, trachea midline. Negative: JVD/HJR Cardiac: Positive: Reg Rate and Rhythm, S1/S2 Lungs: Positive: Normal Exam Neuro: Positive: Weakness Abdomen: Positive: Soft, Active Bowel Sounds Skin: Positive: Clear Extremities: Absent: edema
--- NOTE | 2019-11-04 10:52 | Progress Note ---
Assessment and Plan Assessment: Acute renal failure, possible ischemic ATN from low BP, also possible TTP/HUS Sepsis Afib with RVR Hypotension Thrombocytopenia Hypokalemia, Resolved Plan: HD today S/p Right IJ Perm Catheter placement on 10/27/[address] Howell ARABELLA, ANCA, SPEP, C3, C4, Anti-GBM, SPEP, urine eosinophils-negative Secondary GN work up was negative except for HBVsag and RPR, ID onboard [id number] Strict I&O monitoring Obtain daily weights Renally dose medications Avoid nephrotoxic agents Monitor electrolytes and renal function closely CM onboard for outpatient HD placement arrangement Abraham Rebolledo MD [phone] Subjective Date of service: 11/04/19 Principal diagnosis: Metabolic Encephalopathy Interval history: HD today. Objective - Exam Narrative Exam: General appearance: NAD Eyes: anicteric sclerae, moist conjunctivae; no lid-lag; PERRLA HENT: Atraumatic; oropharynx limited Lungs: CTA CV: RRR no murmur Abdomen: Soft, non-tender Extremities: no edema, no cyanosis Skin: No rash. Psych:no agitated Neuro: non verbal - Vital Signs Vital signs: Vital Signs - 12hr 11/04/19 11/04/19 11/04/19 04:15 06:50 07:53 Temperature 97.4 F L 98.0 F Pulse Rate 76 76 77 Respiratory 16 18 Rate Blood Pressure 122/74 122/74 104/57 O2 Sat by Pulse 87 99 Oximetry 11/04/19 11/04/19 11/04/19 07:59 08:45 09:00 Temperature 98.0 F Pulse Rate 94 H 80 Respiratory 18 18 Rate Blood Pressure 142/53 107/57 O2 Sat by Pulse Oximetry 11/04/19 11/04/19 11/04/19 09:15 09:30 09:45 Temperature Pulse Rate 80 73 85 Respiratory Rate Blood Pressure 106/52 101/52 95/51 O2 Sat by Pulse Oximetry 11/04/19 11/04/19 11/04/19 09:48 10:00 10:15 Temperature Pulse Rate 77 100 H 72 Respiratory Rate Blood Pressure 104/57 96/41 102/54 O2 Sat by Pulse Oximetry 11/04/19 11/04/19 10:30 10:46 Temperature Pulse Rate 78 80 Respiratory Rate Blood Pressure 95/57 113/55 O2 Sat by Pulse Oximetry - Lab 10/25/19 05:17 11/03/19 05:51 Most recent lab results Calcium 9.2 mg/dL (8.4-10.2) 11/03/19 05:51 Phosphorus 4.40 mg/dL (2.5-4.5) D 10/25/19 05:17 Magnesium 1.80 mg/dL (1.7-2.3) 10/24/19 08:36 Urine Creatinine 92.4 mg/dL (0.1-20.0) H 10/31/19 Unknown Medications & Allergies - Medications Allergies/Adverse Reactions: Allergies No Known Allergies Allergy (Unverified 10/10/19 21:31) Home Medications: Home Medications Medication Instructions Recorded Confirmed Last Taken Type Aspirin [Aspirin BABY CHEW TAB] 81 mg PO QDAY #30 tab.chew 11/02/19 Unknown Rx Isosorb Dinit/Hydralazine [Bidil 1 each PO Q8HR #90 tablet 11/02/19 Unknown Rx 20/37.5MG] Metoprolol [Lopressor TAB] 50 mg PO BID #60 tablet 11/02/19 Unknown Rx hydrALAZINE [Apresoline TAB] 25 mg PO Q12HR #60 tablet 11/02/19 Unknown Rx Active Medications: Generic Name Dose Route Start Last Admin Trade Name Freq PRN Reason Stop Dose Admin Acetaminophen 650 mg 10/11/19 02:03 Tylenol PO Q4H PRN Pain MILD(1-3)/Fever >100.5/ANNE Lipase/Protease/Amylase 1 each 10/25/19 14:06 Pancreeli Nuñez 10,500 Unit FEEDTUBE PRN PRN For Clogged Feeding Tube Hydralazine HCl 5 mg 10/11/19 08:00 Apresoline IV Q30MIN PRN Hypertension Hydralazine HCl 25 mg 10/21/19 15:00 11/04/19 06:50 Apresoline PO 25 mg Q8HR NETO Administration Sodium Chloride 100 mls @ 999 mls/hr 10/27/19 11:00 Nacl 0.9% IV EMILIE PRN Hypotension Sodium Chloride 100 mls @ 999 mls/hr 11/04/19 08:56 Nacl 0.9% IV EMILIE PRN Hypotension Isosorbide Dinitrate/Hydralazine 1 each 10/13/19 14:00 11/04/19 06:50 Bidil 20/37.5mg PO 1 each Q8HR NETO Administration Labetalol HCl 10 mg 10/11/19 13:00 10/18/19 04:10 Labetalol IV 10 mg Q4H PRN Administration Hypertension Metoprolol Tartrate 50 mg 10/11/19 10:00 11/04/19 09:48 Metoprolol PO Not Given BID NETO Ondansetron HCl 4 mg 10/11/19 02:03 Zofran IV Q8H PRN Nausea And Vomiting Pantoprazole Sodium 40 mg 10/24/19 10:00 11/04/19 09:48 Protonix PO Not Given DAILY NETO Simple Syrup 15 ml 10/25/19 14:06 Simple Syrup FEEDTUBE PRN PRN Hypoglycemia Simple Syrup 30 ml 10/25/19 14:06 Simple Syrup FEEDTUBE PRN PRN Hypoglycemia Sodium Bicarbonate 325 mg 10/25/19 14:06 Sodium Bicarbonate FEEDTUBE PRN PRN For Clogged Feeding Tube Sodium Chloride 10 ml 10/11/19 10:00 11/04/19 09:49 Sodium Chloride Flush Syringe 10 Ml IV Not Given BID NETO Sodium Chloride 10 ml 10/11/19 02:03 Sodium Chloride Flush Syringe 10 Ml IV PRN PRN LINE FLUSH
--- NOTE | 2019-11-04 11:29 | Progress Note ---
Assessment and Plan /Reeks of aspiration -Reconsulted to speech therapy and recommended pured diet with necter thick liquid /PRIMO due to ATN Nephrology following Now placed on hemodialysis /Toxic metabolic encephalopathy. -Likely from uremia and hyponatremia -Continue to treat underlying causes -Acute CVA/neurosyphilis/meningitis ruled out with negative CSF finding and brain imaging studies /SIRS No obvious infection, Unclear etiology. CSF not consistent with meningitis. CXR without pneumonia. CT abdomen with mild nonspecific inflammation adjacent to the distal aorta. Blood cultures negative, UA without pyuria. Influenza rapid test negative, COVID-19 PCR negative, HIV negative, hepatitis C antibody negative. Hepatitis B surface antigen is reactive. /A. fib with RVR, status post conversion Status post heparin drip, patient thrombocytopenic cardiology following, rate controlled /Anemia due to chronic disease and GI bleed. - Type and cross and transfuse 2 units PRBCs. /Upper GI bleed with melena. - GI consulted - EGD revealed 1.5 cm duodenal bulb ulcer -Continue PPI /Chronic hepatitis B. hepatitis B surface antigen positive. LFTs not elevated. /Hypertension uncontrolled As needed IV hydralazine, Nitropaste, Continue current meds /Hypernatremia, resolved Nephrology following /Hypokalemia replace as needed /Thrombocytopenia hematology following DVT prophylaxis with SCDs only because of low platelets 10/30: Resumed care. RN reported that patient has difficulty eating and coughing with pured diet. Re-consulted speech therapy. Patient might need PEG tube. Called patient's son today but was unable to reach out to him, left device messages. Patient also need outpatient dialysis set up on discharge 10/31: Patient did well with repeat speech eval, change thin liquid to nectar thin liquid and will continue pured diet. Stable medically for discharge as soon as outpatient dialysis gets set up. 11/01: Need outpatient dialysis set up, patient is medically stable for discharge. Pending discharge home outpatient dialysis setup and family to greens picker the patient 11/02: [facility] was not working for HD today, vascular surgeon consulted Brief History: The patient is an 84-year-old Turk[place] male with hypertension, atrial fibrillation, dementia was brought into the emergency room with nausea, vomiting and decreased oral intake. On admission, he was found to have leukocytosis, lactate elevation, patient was hypertensive with a systolic blood pressure of 248, also found with rapid atrial fibrillation. Patient was placed on IV fluid, IV antibiotics and Cardizem drip. due to his advanced age, frailty, and the presence of marked thrombocytopenia cardiology recommended conservative management with rate control strategy and deferred anticoagulation. Patient was suspected for possible meningitis versus neurosyphilis for his altered mental status. His influenza rapid test negative, COVID-19 PCR negative, HIV negative, hepatitis C antibody negative. ID was consulted and recommended CHF, CHF study ruled out neurosyphilis or meningitis. He is now off antibiotics. He was then noted to have black liquid stool and GI consult was called, status post EGD showed duodenal bulb ulcer, placed on PPI. Patient now with increasing creatinine, up from 1.4 on admission to 4.1 with uremia. Nephrology consulted and patient placed on hemodialysis as no improvement noted with IV fluid. Patient having difficulty swallowing, speech recommended pured diet. need outpt Hd set up for discharge. Physical exam: GEN: Not in acute distress, malnourished HEENT: Normocephalic, atraumatic, Neck: supple, No JVD Lungs: Clear to auscultation bilaterally, heart;S1 and S2 reg, no murmurs, rubs or gallop Abd:soft, non tender, non distended, normal bowel sounds, Ext: No edema, no clubbing, no cyanosis, Neuro: Awake,alert, confused Subjective Date of service: 11/04/19 Principal diagnosis: Metabolic Encephalopathy Interval history: Patient seen and examined. Medical records and medication list reviewed. No acute event overnight noted by the RN. having cough during eating Patient confused , tolerating diet today need HD outpt on discharge Patient was planned for discharge but [facility] was not working for HD Objective - Constitutional Vitals: Vital Signs - 12hr 11/04/19 11/04/19 11/04/19 04:15 06:50 07:53 Temperature 97.4 F L 98.0 F Pulse Rate 76 76 77 Respiratory 16 18 Rate Blood Pressure 122/74 122/74 104/57 O2 Sat by Pulse 87 99 Oximetry 11/04/19 11/04/19 11/04/19 07:59 08:45 09:00 Temperature 98.0 F Pulse Rate 94 H 80 Respiratory 18 18 Rate Blood Pressure 142/53 107/57 O2 Sat by Pulse Oximetry 11/04/19 11/04/19 11/04/19 09:15 09:30 09:45 Temperature Pulse Rate 80 73 85 Respiratory Rate Blood Pressure 106/52 101/52 95/51 O2 Sat by Pulse Oximetry 11/04/19 11/04/19 11/04/19 09:48 10:00 10:15 Temperature Pulse Rate 77 100 H 72 Respiratory Rate Blood Pressure 104/57 96/41 102/54 O2 Sat by Pulse Oximetry 11/04/19 11/04/19 11/04/19 10:30 10:46 11:00 Temperature Pulse Rate 78 80 78 Respiratory Rate Blood Pressure 95/57 113/55 106/50 O2 Sat by Pulse Oximetry 11/04/19 11:15 Temperature Pulse Rate 83 Respiratory Rate Blood Pressure 111/56 O2 Sat by Pulse Oximetry - Labs CBC & Chem 7: 10/25/19 05:17 11/03/19 05:51 Labs: Abnormal lab results 11/03/19 11/04/19 Range/Units 16:53 08:03 POC Glucose 125 H 111 H (70-105) HEART Score - HEART Score Troponin: Troponin T 0.024 ng/mL (0.00-0.029) 10/10/19 21:40
[2019-11-04 17:07] LABS: Calcium 9.9 mg/dL (8.4-10.2)
[2019-11-05 05:24] LABS: Calcium 9.3 mg/dL (8.4-10.2)
[2019-11-05] MEDS: hydrALAZINE 25 MG TAB PO SCH (05:28)
[2019-11-05] MEDS: ISOSORB DINIT/HYDRALAZINE 20-37.5MG TAB PO SCH (05:28)
[2019-11-05 07:51] VITALS: BP 99/52
--- NOTE | 2019-11-05 08:26 | Progress Note ---
Subjective Date of service: 11/05/19 Principal diagnosis: Metabolic Encephalopathy Interval history: Assessment and Plan - Patient Problems (1) Atrial fibrillation HR controlled Continue management of chronic atrial fibrillation on a rate control strategy. (2) Cardiomyopathy Dialysis to control volume overload for chronic systolic left ventricular failure. No new recommendations today Objective Vital Signs Temp Pulse Resp BP Pulse Ox 11/05/19 07:47 97.9 F 80 16 99/52 88 11/05/19 05:28 91 H 106/64 11/05/19 04:01 97.7 F 91 H 14 106/64 98 11/04/19 22:44 75 20 164/92 11/04/19 22:43 75 164/92 11/04/19 22:41 97.5 F L 116 H 14 164/92 93 11/04/19 22:00 16 11/04/19 16:01 130/85 11/04/19 12:07 98.4 F 85 18 116/43 11/04/19 12:00 64 94/57 11/04/19 11:45 68 123/48 11/04/19 11:30 77 97/56 11/04/19 11:15 83 111/56 11/04/19 11:00 78 106/50 11/04/19 10:46 80 113/55 11/04/19 10:30 78 95/57 11/04/19 10:15 72 102/54 11/04/19 10:00 100 H 96/41 11/04/19 09:48 77 104/57 11/04/19 09:45 85 95/51 11/04/19 09:30 73 101/52 11/04/19 09:15 80 106/52 11/04/19 09:00 80 107/57 11/04/19 08:45 98.0 F 94 H 18 142/53 - Physical Examination General: Appears Well, No Apparent Distress, Cachectic HEENT: Positive: PERRL Neck: Positive: neck supple, trachea midline. Negative: JVD/HJR Cardiac: Positive: Reg Rate and Rhythm, S1/S2 Lungs: Positive: Normal Exam Neuro: Positive: Weakness Abdomen: Positive: Soft, Active Bowel Sounds Skin: Positive: Clear Extremities: Absent: edema - Labs and Meds Comprehensive Metabolic Panel 11/04/19 11/05/19 Range/Units 16:10 04:38 Sodium 137 138 (137-145) mmol/L Potassium 4.2 4.8 (3.6-5.0) mmol/L Chloride 99.2 97.3 L (98-107) mmol/L Carbon Dioxide 26 26 (22-30) mmol/L BUN 23 H 32 H (9-20) mg/dL Creatinine 1.2 2.3 H D (0.8-1.5) mg/dL Glucose 105 H 96 (75-100) mg/dL Calcium 9.9 9.3 (8.4-10.2) mg/dL
--- NOTE | 2019-11-05 08:52 | Progress Note ---
Assessment and Plan Assessment: Acute renal failure, possible ischemic ATN from low BP, also possible TTP/HUS Sepsis Afib with RVR Hypotension Thrombocytopenia Hypokalemia, Resolved Plan: Tolerated HD yesterday. S/p Right IJ Perm Catheter placement on 10/27/[address] Howell ARABELLA, ANCA, SPEP, C3, C4, Anti-GBM, SPEP, urine eosinophils-negative Secondary GN work up was negative except for HBVsag and RPR, ID onboard [id number] Strict I&O monitoring Obtain daily weights Renally dose medications Avoid nephrotoxic agents Monitor electrolytes and renal function closely CM onboard for outpatient HD placement arrangement Abraham Rebolledo MD [phone] Subjective Date of service: 11/05/19 Principal diagnosis: Metabolic Encephalopathy Interval history: Tolerated HD yesterday. Objective - Exam Narrative Exam: General appearance: NAD Eyes: anicteric sclerae, moist conjunctivae; no lid-lag; PERRLA HENT: Atraumatic; oropharynx limited Lungs: CTA CV: RRR no murmur Abdomen: Soft, non-tender Extremities: no edema, no cyanosis Skin: No rash. Psych:no agitated Neuro: non verbal - Vital Signs Vital signs: Vital Signs - 12hr 11/04/19 11/04/19 11/04/19 22:00 22:41 22:43 Temperature 97.5 F L Pulse Rate 116 H 75 Respiratory 16 14 Rate Blood Pressure 164/92 164/92 O2 Sat by Pulse 93 Oximetry 11/04/19 11/05/19 11/05/19 22:44 04:01 05:28 Temperature 97.7 F Pulse Rate 75 91 H 91 H Respiratory 20 14 Rate Blood Pressure 164/92 106/64 106/64 O2 Sat by Pulse 98 Oximetry 11/05/19 07:47 Temperature 97.9 F Pulse Rate 80 Respiratory 16 Rate Blood Pressure 99/52 O2 Sat by Pulse 88 Oximetry - Lab 10/25/19 05:17 11/05/19 04:38 Most recent lab results Calcium 9.3 mg/dL (8.4-10.2) 11/05/19 04:38 Phosphorus 4.40 mg/dL (2.5-4.5) D 10/25/19 05:17 Magnesium 1.80 mg/dL (1.7-2.3) 10/24/19 08:36 Urine Creatinine 92.4 mg/dL (0.1-20.0) H 10/31/19 Unknown Medications & Allergies - Medications Allergies/Adverse Reactions: Allergies No Known Allergies Allergy (Unverified 10/10/19 21:31) Home Medications: Home Medications Medication Instructions Recorded Confirmed Last Taken Type Aspirin [Aspirin BABY CHEW TAB] 81 mg PO QDAY #30 tab.chew 11/02/19 Unknown Rx Isosorb Dinit/Hydralazine [Bidil 1 each PO Q8HR #90 tablet 11/02/19 Unknown Rx 20/37.5MG] Metoprolol [Lopressor TAB] 50 mg PO BID #60 tablet 11/02/19 Unknown Rx hydrALAZINE [Apresoline TAB] 25 mg PO Q12HR #60 tablet 11/02/19 Unknown Rx Active Medications: Generic Name Dose Route Start Last Admin Trade Name Freq PRN Reason Stop Dose Admin Acetaminophen 650 mg 10/11/19 02:03 11/04/19 22:44 Tylenol PO 650 mg Q4H PRN Administration Pain MILD(1-3)/Fever >100.5/ANNE Lipase/Protease/Amylase 1 each 10/25/19 14:[address] 10,500 Unit FEEDTUBE PRN PRN For Clogged Feeding Tube Hydralazine HCl 5 mg 10/11/19 08:00 Apresoline IV Q30MIN PRN Hypertension Hydralazine HCl 25 mg 10/21/19 15:00 11/05/19 05:28 Apresoline PO 25 mg Q8HR NETO Administration Sodium Chloride 100 mls @ 999 mls/hr 10/27/19 11:00 Nacl 0.9% IV EMILIE PRN Hypotension Sodium Chloride 100 mls @ 999 mls/hr 11/04/19 08:56 Nacl 0.9% IV EMILIE PRN Hypotension Isosorbide Dinitrate/Hydralazine 1 each 10/13/19 14:00 11/05/19 05:28 Bidil 20/37.5mg PO 1 each Q8HR NETO Administration Labetalol HCl 10 mg 10/11/19 13:00 10/18/19 04:10 Labetalol IV 10 mg Q4H PRN Administration Hypertension Metoprolol Tartrate 50 mg 10/11/19 10:00 11/04/19 22:43 Metoprolol PO 50 mg BID NETO Administration Ondansetron HCl 4 mg 10/11/19 02:03 Zofran IV Q8H PRN Nausea And Vomiting Pantoprazole Sodium 40 mg 10/24/19 10:00 11/04/19 09:48 Protonix PO Not Given DAILY NETO Simple Syrup 15 ml 10/25/19 14:06 Simple Syrup FEEDTUBE PRN PRN Hypoglycemia Simple Syrup 30 ml 10/25/19 14:06 Simple Syrup FEEDTUBE PRN PRN Hypoglycemia Sodium Bicarbonate 325 mg 10/25/19 14:06 Sodium Bicarbonate FEEDTUBE PRN PRN For Clogged Feeding Tube Sodium Chloride 10 ml 10/11/19 10:00 11/04/19 22:45 Sodium Chloride Flush Syringe 10 Ml IV 10 ml BID NETO Administration Sodium Chloride 10 ml 10/11/19 02:03 Sodium Chloride Flush Syringe 10 Ml IV PRN PRN LINE FLUSH
[2019-11-05] MEDS: METOPROLOL TARTRATE 50 MG TAB PO SCH (09:56)
[2019-11-05] MEDS: PANTOPRAZOLE 40 MG TAB PO SCH (10:03)
--- NOTE | 2019-11-05 12:54 | Progress Note ---
Assessment and Plan /Reeks of aspiration -Reconsulted to speech therapy and recommended pured diet with necter thick liquid /PRIMO due to ATN Nephrology following Now placed on hemodialysis /Toxic metabolic encephalopathy. -Likely from uremia and hyponatremia -Continue to treat underlying causes -Acute CVA/neurosyphilis/meningitis ruled out with negative CSF finding and brain imaging studies /SIRS No obvious infection, Unclear etiology. CSF not consistent with meningitis. CXR without pneumonia. CT abdomen with mild nonspecific inflammation adjacent to the distal aorta. Blood cultures negative, UA without pyuria. Influenza rapid test negative, COVID-19 PCR negative, HIV negative, hepatitis C antibody negative. Hepatitis B surface antigen is reactive. /A. fib with RVR, status post conversion Status post heparin drip, patient thrombocytopenic cardiology following, rate controlled /Anemia due to chronic disease and GI bleed. - Type and cross and transfuse 2 units PRBCs. /Upper GI bleed with melena. - GI consulted - EGD revealed 1.5 cm duodenal bulb ulcer -Continue PPI /Chronic hepatitis B. hepatitis B surface antigen positive. LFTs not elevated. /Hypertension uncontrolled As needed IV hydralazine, Nitropaste, Continue current meds /Hypernatremia, resolved Nephrology following /Hypokalemia replace as needed /Thrombocytopenia hematology following DVT prophylaxis with SCDs only because of low platelets 10/30: Resumed care. RN reported that patient has difficulty eating and coughing with pured diet. Re-consulted speech therapy. Patient might need PEG tube. Called patient's son today but was unable to reach out to him, left device messages. Patient also need outpatient dialysis set up on discharge 10/31: Patient did well with repeat speech eval, change thin liquid to nectar thin liquid and will continue pured diet. Stable medically for discharge as soon as outpatient dialysis gets set up. 11/01: Need outpatient dialysis set up, patient is medically stable for discharge. Pending discharge home outpatient dialysis setup and family to cook pickled meat the patient 11/02: Permcath was not working for HD today, vascular surgeon consulted 11/03: No need for permcath change, worked ok for HD today. planned for d/c but Son didnot come to pick, he is coming tomorrow morning for cook pickled meat Brief History: The patient is an 84-year-old [place] male with hypertension, atrial fibrillation, dementia was brought into the emergency room with nausea, vomiting and decreased oral intake. On admission, he was found to have leukocytosis, lactate elevation, patient was hypertensive with a systolic blood pressure of 248, also found with rapid atrial fibrillation. Patient was placed on IV fluid, IV antibiotics and Cardizem drip. due to his advanced age, frailty, and the pres ence of marked thrombocytopenia cardiology recommended conservative management with rate control strategy and deferred anticoagulation. Patient was suspected for possible meningitis versus neurosyphilis for his altered mental status. His influenza rapid test negative, COVID-19 PCR negative, HIV negative, hepatitis C antibody negative. ID was consulted and recommended CHF, CHF study ruled out neurosyphilis or meningitis. He is now off antibiotics. He was then noted to have black liquid stool and GI consult was called, status post EGD showed duodenal bulb ulcer, placed on PPI. Patient now with increasing creatinine, up from 1.4 on admission to 4.1 with uremia. Nephrology consulted and patient placed on hemodialysis as no improvement noted with IV fluid. Patient having difficulty swallowing, speech recommended pured diet. need outpt Hd set up for discharge. Physical exam: GEN: Not in acute distress, malnourished HEENT: Normocephalic, atraumatic, Neck: supple, No JVD Lungs: Clear to auscultation bilaterally, heart;S1 and S2 reg, no murmurs, rubs or gallop Abd:soft, non tender, non distended, normal bowel sounds, Ext: No edema, no clubbing, no cyanosis, Neuro: Awake,alert, confused Subjective Date of service: 11/04/19 Principal diagnosis: Metabolic Encephalopathy Interval history: Patient seen and examined. Medical records and medication list reviewed. No acute event overnight noted by the RN. having cough during eating Patient confused , tolerating diet today need HD outpt on discharge Patient was planned for discharge but [facility] was not working for HD Objective - Constitutional Vitals: Vital Signs - 12hr 11/05/19 11/05/19 11/05/19 04:01 05:28 07:47 Temperature 97.7 F 97.9 F Pulse Rate 91 H 91 H 80 Respiratory 14 16 Rate Blood Pressure 106/64 106/64 99/52 O2 Sat by Pulse 98 88 Oximetry 11/05/19 09:56 Temperature Pulse Rate 68 Respiratory Rate Blood Pressure O2 Sat by Pulse Oximetry - Labs CBC & Chem 7: 10/25/19 05:17 11/05/19 04:38 Labs: Abnormal lab results 11/04/19 11/05/19 11/05/19 Range/Units 16:10 00:05 04:38 Chloride 97.3 L (98-107) mmol/L BUN 23 H 32 H (9-20) mg/dL Creatinine 2.3 H D (0.8-1.5) mg/dL Glucose 105 H (75-100) mg/dL POC Glucose 132 H (70-105) 11/05/19 11/05/19 Range/Units 05:53 08:02 Chloride (98-107) mmol/L BUN (9-20) mg/dL Creatinine (0.8-1.5) mg/dL Glucose (75-100) mg/dL POC Glucose 118 H 159 H (70-105) HEART Score - HEART Score Troponin: Troponin T 0.024 ng/mL (0.00-0.029) 10/10/19 21:40
--- NOTE | 2019-11-05 12:56 | Progress Note ---
Assessment and Plan /Reeks of aspiration -Reconsulted to speech therapy and recommended pured diet with necter thick liquid /PRIMO due to ATN Nephrology following Now placed on hemodialysis /Toxic metabolic encephalopathy. -Likely from uremia and hyponatremia -Continue to treat underlying causes -Acute CVA/neurosyphilis/meningitis ruled out with negative CSF finding and brain imaging studies /SIRS No obvious infection, Unclear etiology. CSF not consistent with meningitis. CXR without pneumonia. CT abdomen with mild nonspecific inflammation adjacent to the distal aorta. Blood cultures negative, UA without pyuria. Influenza rapid test negative, COVID-19 PCR negative, HIV negative, hepatitis C antibody negative. Hepatitis B surface antigen is reactive. /A. fib with RVR, status post conversion Status post heparin drip, patient thrombocytopenic cardiology following, rate controlled /Anemia due to chronic disease and GI bleed. - Type and cross and transfuse 2 units PRBCs. /Upper GI bleed with melena. - GI consulted - EGD revealed 1.5 cm duodenal bulb ulcer -Continue PPI /Chronic hepatitis B. hepatitis B surface antigen positive. LFTs not elevated. /Hypertension uncontrolled As needed IV hydralazine, Nitropaste, Continue current meds /Hypernatremia, resolved Nephrology following /Hypokalemia replace as needed /Thrombocytopenia hematology following DVT prophylaxis with SCDs only because of low platelets 10/30: Resumed care. RN reported that patient has difficulty eating and coughing with pured diet. Re-consulted speech therapy. Patient might need PEG tube. Called patient's son today but was unable to reach out to him, left device messages. Patient also need outpatient dialysis set up on discharge 10/31: Patient did well with repeat speech eval, change thin liquid to nectar thin liquid and will continue pured diet. Stable medically for discharge as soon as outpatient dialysis gets set up. 11/01: Need outpatient dialysis set up, patient is medically stable for discharge. Pending discharge home outpatient dialysis setup and family to order picker/assembler the patient 11/02: Permcath was not working for HD today, vascular surgeon consulted 11/03: No need for permcath change, worked ok for HD today. planned for d/c but Son didnot come to pick, he is coming tomorrow morning for order picker/assembler 11/04: Family came to pickup for discharge today and Son stated that they won't be able to take care of the patient at home as he became more lethargic requiring 24/7 care and changed their mind for discharge. family now wants hospice. CM notified. Brief History: The patient is an 84-year-old [place] male with hypertension, atrial fibrillation, dementia was brought into the emergency room with nausea, vomiting and decreased oral intake. On admission, he was found to have leukocytosis, lactate elevation, patient was hypertensive with a systolic blood pressure of 248, also found with rapid atrial fibrillation. Patient was placed on IV fluid, IV antibiotics and Cardizem drip. due to his advanced age, frailty, and the presence of marked thrombocytopenia cardiology recommended conservative management with rate control strategy and deferred anticoagulation. Patient was suspected for possible meningitis versus neurosyphilis for his altered mental status. His influenza rapid test negative, COVID-19 PCR negative, HIV negative, hepatitis C antibody negative. ID was consulted and recommended CHF, CHF study ruled out neurosyphilis or meningitis. He is now off antibiotics. He was then noted to have black liquid stool and GI consult was called, status post EGD showed duodenal bulb ulcer, placed on PPI. Patient now with increasing creatinine, up from 1.4 on admission to 4.1 with uremia. Nephrology consulted and patient placed on hemodialysis as no improvement noted with IV fluid. Patient having difficulty swallowing, speech recommended pured diet. CM set up outpt HD for discharge. family now wants hospice. CM notified. Physical exam: GEN: Not in acute distress, malnourished HEENT: Normocephalic, atraumatic, Neck: supple, No JVD Lungs: Clear to auscultation bilaterally, heart;S1 and S2 reg, no murmurs, rubs or gallop Abd:soft, non tender, non distended, normal bowel sounds, Ext: No edema, no clubbing, no cyanosis, Neuro: Awake,alert, confused Subjective Date of service: 11/05/19 Principal diagnosis: Metabolic Encephalopathy Objective - Constitutional Vitals: Vital Signs - 12hr 11/05/19 11/05/19 11/05/19 04:01 05:28 07:47 Temperature 97.7 F 97.9 F Pulse Rate 91 H 91 H 80 Respiratory 14 16 Rate Blood Pressure 106/64 106/64 99/52 O2 Sat by Pulse 98 88 Oximetry 11/05/19 09:56 Temperature Pulse Rate 68 Respiratory Rate Blood Pressure O2 Sat by Pulse Oximetry - Labs CBC & Chem 7: 10/25/19 05:17 11/05/19 04:38 Labs: Abnormal lab results 11/04/19 11/05/19 11/05/19 Range/Units 16:10 00:05 04:38 Chloride 97.3 L (98-107) mmol/L BUN 23 H 32 H (9-20) mg/dL Creatinine 2.3 H D (0.8-1.5) mg/dL Glucose 105 H (75-100) mg/dL POC Glucose 132 H (70-105) 11/05/19 11/05/19 Range/Units 05:53 08:02 Chloride (98-107) mmol/L BUN (9-20) mg/dL Creatinine (0.8-1.5) mg/dL Glucose (75-100) mg/dL POC Glucose 118 H 159 H (70-105) HEART Score - HEART Score Troponin: Troponin T 0.024 ng/mL (0.00-0.029) 10/10/19 21:40
== END 2019-11-05 17:38 | disposition hospice, inpatient (51) | DRG 673 ==
LOC: ED 21:01 → 4A 10-11 02:03
PROVIDERS: ADMIT Internal Medicine; ATTEND Internal Medicine
PROC: 02HV33Z Insertion of Infusion Device into Superior Vena Cava, Percutaneous Approach (ICD-10-PCS; principal; 2019-10-16)
PROC: B548ZZA Ultrasonography of Superior Vena Cava, Guidance (ICD-10-PCS; 2019-10-16)
PROC: 5A1D70Z Performance of Urinary Filtration, Intermittent, Less than 6 Hours Per Day (ICD-10-PCS; 2019-10-16)
PROC: 5A1D70Z Performance of Urinary Filtration, Intermittent, Less than 6 Hours Per Day (ICD-10-PCS; 2019-10-17)
PROC: 009U3ZX Drainage of Spinal Canal, Percutaneous Approach, Diagnostic (ICD-10-PCS; 2019-10-19)
PROC: 5A1D70Z Performance of Urinary Filtration, Intermittent, Less than 6 Hours Per Day (ICD-10-PCS; 2019-10-19)
PROC: 30233N1 Transfusion of Nonautologous Red Blood Cells into Peripheral Vein, Percutaneous Approach (ICD-10-PCS; 2019-10-21)
PROC: 0DJ08ZZ Inspection of Upper Intestinal Tract, Via Natural or Artificial Opening Endoscopic (ICD-10-PCS; 2019-10-22)
PROC: 5A1D70Z Performance of Urinary Filtration, Intermittent, Less than 6 Hours Per Day (ICD-10-PCS; 2019-10-23)
PROC: 0JH63XZ Insertion of Tunneled Vascular Access Device into Chest Subcutaneous Tissue and Fascia, Percutaneous Approach (ICD-10-PCS; 2019-10-27)
PROC: 02PYX3Z Removal of Infusion Device from Great Vessel, External Approach (ICD-10-PCS; 2019-10-27)
PROC: 02H633Z Insertion of Infusion Device into Right Atrium, Percutaneous Approach (ICD-10-PCS; 2019-10-27)
PROC: B5181ZA Fluoroscopy of Superior Vena Cava using Low Osmolar Contrast, Guidance (ICD-10-PCS; 2019-10-27)
PROC: 5A1D70Z Performance of Urinary Filtration, Intermittent, Less than 6 Hours Per Day (ICD-10-PCS; 2019-10-27)
PROC: 5A1D70Z Performance of Urinary Filtration, Intermittent, Less than 6 Hours Per Day (ICD-10-PCS; 2019-10-30)
PROC: 5A1D70Z Performance of Urinary Filtration, Intermittent, Less than 6 Hours Per Day (ICD-10-PCS; 2019-11-01)
PROC: 5A1D70Z Performance of Urinary Filtration, Intermittent, Less than 6 Hours Per Day (ICD-10-PCS; 2019-11-03)
PROC: 5A1D70Z Performance of Urinary Filtration, Intermittent, Less than 6 Hours Per Day (ICD-10-PCS; 2019-11-04)
DX: N17.0 Acute kidney failure with tubular necrosis (principal); G92 Toxic encephalopathy; K26.4 Chronic or unspecified duodenal ulcer with hemorrhage; E87.0 Hyperosmolality and hypernatremia; B19.10 Unspecified viral hepatitis B without hepatic coma; E87.2 Acidosis; I42.0 Dilated cardiomyopathy; I50.42 Chronic combined systolic (congestive) and diastolic (congestive) heart failure; I13.0 Hypertensive heart and chronic kidney disease with heart failure and stage 1 through stage 4 chronic kidney disease, or unspecified chronic kidney disease; I48.91 Unspecified atrial fibrillation; I16.0 Hypertensive urgency; N18.9 Chronic kidney disease, unspecified; E87.6 Hypokalemia; D72.829 Elevated white blood cell count, unspecified; F03.90 Unspecified dementia, unspecified severity, without behavioral disturbance, psychotic disturbance, mood disturbance, and anxiety; D69.6 Thrombocytopenia, unspecified; E86.0 Dehydration; K29.70 Gastritis, unspecified, without bleeding; D63.8 Anemia in other chronic diseases classified elsewhere; R53.81 Other malaise; Z90.49 Acquired absence of other specified parts of digestive tract; Z03.818 Encounter for observation for suspected exposure to other biological agents ruled out
CPT/HCPCS: 36415; 36556; 36558; 62270; 70450; 70551; 71045; 74018; 74176; 76937; 77001; 77003; 80048; 80053; 80074; 81001; 82140; 82550; 82565; 82570; 82575; 82947; 82962; 83520; 83615; 83735; 84100; 84160; 84165; 84295; 84443; 84484; 85007; 85025; 85027; 85610; 85730; 86021; 86038; 86160; 86592; 86593; 86706; 86803; 86850; 86900; 86901; 86920; 87040; 87116; 87400; 87498; 87517; 87799; 87806; 89051; 93005; 93306; 95819; G0378; C1750; C1752; C1769; C9113; J0133; J0360; J1644; J1650; J2060; J2250; J2543; J2704; J2997; J3010; J7030; J7040; J7050; J7070; P9016; U0003; U0003-CS